=== PATIENT | male | born 1935 | race Caucasian/White ===

== ENCOUNTER → 2020-05-02 08:39 | Outpatient (REF) | payer MEDICARE, SELFPAY ==
--- NOTE | 2020-05-02 08:51 | XR_ITS ---
EXAMINATION: XR CHEST CLINICAL INFORMATION: Heart failure COMPARISON: Previous chest x-rays most recent April 2019 TECHNIQUE: 2 views of the chest were obtained. FINDINGS: The cardiac silhouette is upper normal in size but stable. The thoracic aorta is tortuous. Hilar and mediastinal contours are otherwise unremarkable. No evidence of pulmonary edema is seen. There is a 1 x 1.2 cm nodule at the left lung base adjacent to the left heart border and overlying the left anterior seventh and posterior ninth ribs. The right lung is clear. There is no pleural effusion. There are surgical clips under the left hemidiaphragm. There are degenerative changes of the spine. XR/XR chest 2V IMPRESSION: Upper normal-size cardiac silhouette. No evidence of pulmonary edema. 1 x 1.2 cm nodule at the left lung base. Follow-up chest x-ray with nipple markers or chest CT scan should be considered.
--- NOTE | 2020-05-02 09:30 | CA_ITS ---
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 The visually estimated ejection fraction is between 65-70%. - There is mild aortic valve regurgitation. - There is mild mitral valve regurgitation. - There is mild tricuspid valve regurgitation. - There is mild dilatation of the ascending aorta measuring 4.10 cm. Findings Left Ventricle Normal left ventricular cavity size. There is mildly increased left ventricular wall thickness. The left ventricular systolic function is normal. The visually estimated ejection fraction is between 65-70%. There is no evidence of regional wall motion abnormalities. Diastolic function is normal for age. Right Ventricle Normal right ventricular cavity size and systolic function. Atria The left atrium is mildly dilated. The right atrium is normal in size. Aortic Valve There is a normal trileaflet aortic valve. There is no aortic valve stenosis. There is mild aortic valve regurgitation. Mitral Valve The mitral valve appears normal. There is mild mitral valve regurgitation. There is no mitral valve stenosis. Pulmonic Valve The pulmonic valve was not well visualized. There is trace pulmonic valve regurgitation. Tricuspid Valve Normal tricuspid valve structure. There is mild tricuspid valve regurgitation. The pulmonary artery systolic pressure is normal. Great Vessels There is mild dilatation of the ascending aorta measuring 4.10 cm. Venous The inferior vena cava is normal in size and collapses greater than 50% with inspiration. Pericardium/Pleural There is no evidence of pericardial effusion. Prior Study Comparison Changes noted compared to prior study dated: 05/13/2019. Slight increase in ascending aortic size. Measurements 2D Linear Measurements IVSd: 1.21 0.6-0.9/0.6-1.0 cm LVIDd: 4.85 3.9-5.3/4.2-5.9 cm LVIDd Index: 2.66 2.4-3.2/2.2-3.1 cm/m2 LVIDs: 3.04 2.0-3.6 cm LVPWd: 1.21 0.7-1.1 cm Ao Root: 3.70 2.1-3.5 cm LA Diam: 4.50 2.7-3.8/3.0-4.0 cm LAIDs Index: 2.47 1.5-2.3 cm/m2 LV Mass: 280.96 67-162/88-224 g LV Mass Index: 154.38 43-95/49-115 g/m2 LVOT Diam: 2.30 3.0+(-)1.3 cm Mitral Valve MV Pk E: 0.54 MV PK A: 0.39 MV Decel Time: 338.00 E/A: 1.40 E'Lateral: 9.09 E'Medial: 5.90 E/E' Med: 9.20 E/E' Lat: 6.00 PHT: 99.00 MVA PHT: 2.22 Decel Jasper: 1.61 Aortic Valve AoV Pk Murray: 1.68 AoV Mn Murray: 1.03 AoV VTI: 0.33 AoV Pk Grad: 11.00 Aov Mn Grad: 6.00 RHONDA Cont.VTI: 3.08 LVOT LVOT Pk Murray: 1.04 LVOT Mn Murray: 0.72 LVOT VTI: 0.25 LVOT Pk Grad: 4.00 LVOT Mn Grad: 2.00 LVOT Diam: 2.30 LVOT Area: 4.15 Diastolic Function MV Pk E: 0.54 MV Pk A: 0.39 E/A: 1.40 E'Medial: 5.90 E/E' Med: 9.20 E' Laterial: 9.09 E/E' Lat: 6.00 Tricuspid Valve TR Pk Murray: 2.12 TR Pk Grad: 18.00 RA Press: 3.00 RVSP: 21.00 Great Vessels Aorta Ao Root-2D: 3.70 2.0-3.7 cm Ao Asc: 4.10 2.1-3.4 cm Pulmonary Valve PV Pk Murray: 1.05 Peak PV Grad: 4.00 Updated in Other Vendor System with Status of Final Kenan Zelaya MD electronically signed on 05/02/2020 4:48:57 PM with status of Final
== END ==
LOC: HO.CARD 08:39
PROVIDERS: PCP Internal Medicine; Visit Provider Internal Medicine Cardiovascular Disease
DX: I48.0 Paroxysmal atrial fibrillation (principal); I49.3 Ventricular premature depolarization; I71.2 Thoracic aortic aneurysm, without rupture; Z86.79 Personal history of other diseases of the circulatory system
CPT/HCPCS: 71046; 93306

== ENCOUNTER 2020-06-01 11:49 | Outpatient (REF) | payer MEDICARE, SELFPAY ==
--- NOTE | 2020-06-01 12:17 | XR_ITS ---
EXAMINATION: XR CHEST CLINICAL INFORMATION: Question nodule on recent chest x-ray 05/02/2020 COMPARISON: Chest 05/02/2020 and 05/13/2019 TECHNIQUE: 2 views of the chest were obtained. FINDINGS: Nipple markers were placed and repeat chest PA and lateral was obtained. There is a soft tissue density seen inferior to the nipple marker. This could be a nodule or an correctly placed nipple marker. The rest of lungs are clear. Heart size and vascularity is normal. There is mild spondylosis dorsal spine. XR/XR chest 2V IMPRESSION: Postoperative the markers there is persistent nodule seen in the left lung base. Nodule could be degenerative in correctly placed nipple marker or underlying primary nodule. Recommend CT chest exam. Results were discussed with Dr. Ricky Goodman by phone at 1:40 PM.
== END 2020-06-01 11:50 | disposition home or self-care (01) ==
LOC: HO.XRAY 11:49
PROVIDERS: Absent Provider Internal Medicine; PCP Internal Medicine; Visit Provider Internal Medicine Cardiovascular Disease
DX: Z79.899 Other long term (current) drug therapy (principal)
CPT/HCPCS: 71046

== ENCOUNTER 2020-06-06 07:11 | Outpatient (REF) | payer MEDICARE, SELFPAY ==
--- NOTE | 2020-06-06 07:13 | CT_ITS ---
EXAMINATION: CT CHEST WITHOUT CONTRAST CLINICAL INFORMATION: Long-term current drug therapy. Evaluate for interstitial lung disease. COMPARISON: Previous chest x-rays most recent 06/01/2020 TECHNIQUE: Multidetector volumetric CT imaging of the chest was done. Axial MIP volume rendering provided. Sagittal and coronal reformatted images were obtained. This CT examination was performed using dose optimization techniques as appropriate, variously including the following: *Automated exposure control *Adjustment of mA and/or kV according to patient size (this includes techniques or standardized protocols for targeted exams where dose is matched to indication/reason for exam; i.e. extremities or head) *Use of iterative reconstruction technique DLP: 170 mGy-cm FINDINGS: LUNGS: There is mild biapical pleural and parenchymal scarring. There is a 3 mm calcified right upper lobe nodule axial image 192 series 5. There is a 3 mm calcified right lower lobe nodule axial image 296 series 5. There is a 3 mm noncalcified peripheral or subpleural left lower lobe nodule adjacent to the fissure axial image 309 series 5. There is a 2 mm noncalcified right lower lobe central nodule axial image 328 series 5. There is a 3 mm calcified peripheral or subpleural right lower lobe nodule axial image 375 series 5. There is a 2 mm calcified right lower lobe nodules axial image 460 series 5. There is scarring or subsegmental atelectasis seen in both lower lobes adjacent to the posterior mediastinum, right greater than left. No evidence of interstitial lung disease is seen. No evidence of emphysema or bronchiectasis or endobronchial or endotracheal lesion is seen. The questioned pulmonary nodule on chest x-ray 05/02/2020 is not identified and likely represented a nipple shadow. MEDIASTINUM: The visualized thyroid gland is unremarkable. There are no enlarged hilar or mediastinal lymph nodes. Heart is upper normal in size. There is coronary artery calcification. Thoracic aorta is slightly dilated. The ascending thoracic aorta measures 4.4 cm in AP and transverse dimension. The aortic arch is upper normal in size measuring 3 cm. The descending thoracic aorta is slightly dilated measuring 3.2 cm in diameter. There is a small esophageal hernia. There is no pericardial effusion. The pulmonary arteries are slightly prominent, main pulmonary artery measuring 3.4 cm. PLEURA: There is no pleural effusion. No pleural mass or thickening. AXILLA: No chest wall mass or enlarged axillary lymph nodes are seen. UPPER ABDOMEN: There is diverticulosis of the colon. There is stable linear right adrenal calcification. There are surgical clips inferior to the spleen. OSSEOUS STRUCTURES: There are degenerative changes of the spine and shoulder joints. CT/CT chest wo con IMPRESSION: No evidence of interstitial lung disease. Small calcified and noncalcified pulmonary nodules, largest measuring 3 mm. According to the UPDATED 2017 Fleischner Society recommendations, the advised follow-up imaging for less than 6 mm pulmonary nodule, low risk, no chest CT follow-up needed and high risk, optional follow-up in one year. Upper normal-size heart. Slightly dilated ascending thoracic aorta and pulmonary arteries. Small esophageal hernia.
== END 2020-06-06 07:12 | disposition home or self-care (01) ==
LOC: HO.CT 07:11
PROVIDERS: Visit Provider Internal Medicine Cardiovascular Disease
DX: Z79.899 Other long term (current) drug therapy (principal)
CPT/HCPCS: 71250

== ENCOUNTER → 2020-06-12 08:27 | Outpatient (BNVA) | payer MEDICARE, SELFPAY | PROVIDERS: PCP Internal Medicine; Visit Provider Internal Medicine Cardiovascular Disease | DX: R07.9 Chest pain, unspecified (principal); I25.10 Atherosclerotic heart disease of native coronary artery without angina pectoris; I48.0 Paroxysmal atrial fibrillation; I10 Essential (primary) hypertension; I45.10 Unspecified right bundle-branch block; R00.1 Bradycardia, unspecified | CPT/HCPCS: 93005; 99212 ==

== ENCOUNTER → 2020-06-13 08:23 | Outpatient (REF) | payer MEDICARE, SELFPAY ==
--- NOTE | 2020-06-13 08:30 | CA_ITS ---
Acquisition Time: 2020-06-13 09:54:57 Total Exercise Time: 00:08:09 Test Indications: Chest Pain, afib/rbbb Medications: SEE CHART Protocol: WALTER Max HR: 121 BPM 87% of Pred: 138 BPM Max BP: 170/078 mmHG Max Work Load: 9.2 METS Exercise stress test Using Walter protocol total of 8 min 9 sec. METS 9.10, TAPHR up to 88 %. Pt tolerated well, denies any anginal sx. EKG with RBBB at baseline, no ST changes seen during exercise or in recovery, however in peak exercise tracing very messy do to wire interference. Immediataly post exercise in recovery period no change that would suggest ischemia. Nuclear images to follow. Hypertensive response to exercise, Test reviewed with DR. Zelaya. Referred By: Ricky Macias Overread By: David Montes
--- NOTE | 2020-06-13 09:59 | NM_ITS ---
Exercise Myocardial perfusion study Indication: Exertional chest pain to evaluate for myocardial ischemia Technique: The patient was brought in for an exercise perfusion study on 06/13/2020. Patient performed exercise as per Mendez protocol and was injected 25 mCi of sestamibi was given intravenously one target HR was achieved. Images were obtained using the SPECT gamma camera interlaced with the gating device. Images were obtained in supine position. Resting perfusion study was performed on 06/14/2020. Patient was administered 25 mCi of sestamibi intravenously at rest. Images were then obtained in supine position. Images obtained with and without CT attenuation. Total DLP 67 mGy-cm. Images were processed with the software and compared side to side in short axis, horizontal long axis and vertical long axis views. Findings: The stress perfusion study showed non attenuated images show mildly reduced uptake in the inferior wall of the LV myocardium. Attenuation corrected images show normal uptake in the inferior wall with minimally reduced uptake in the apex of the LV myocardium.. The gated study shows normal LV systolic function with visually estimated LVEF of 55%. LV cavity is mildly dilated in size. The gated study shows normal wall thickening and contraction of all segments. There is no transient ischemic dilation. Resting study shows no change in perfusion pattern compared to stress perfusion study. Gating at rest reveals normal systolic wall motion with visually estimated ejection fraction at 55%. The findings are consistent with normal myocardial perfusion. NM/NM cardiolite stress test Impression: 1. Normal myocardial perfusion 2. Gated LVEF is 55% 3. Transient ischemic dilatation not present Stress EKG is negative for ischemia
== END ==
LOC: HO.CARD 08:23
PROVIDERS: PCP Internal Medicine; Visit Provider Internal Medicine Cardiovascular Disease
DX: R07.9 Chest pain, unspecified (principal)
CPT/HCPCS: 78452; 93017; A9500

== ENCOUNTER 2020-07-31 09:25 | Outpatient (REF) | payer MEDICARE, SELFPAY ==
[2020-07-31 10:03] LABS: MANUAL DIFF FLAG NO
[2020-07-31 10:09] LABS: Basophils Percent Auto 0.3 % (0-2); Eosinophils Absolute Auto 0.1 X10*3/uL (0.0-0.4); Eosinophils Percent Auto 1.6 % (0-4); Hematocrit 44.9 % (42-52); Hemoglobin 14.4 g/dl (14.0-18.0); Imm Gran Abs Auto 0.02 X10*3/uL (0.00-0.03); Imm Gran Pct Auto 0.3 % (0.0-0.4); Lymphocytes Absolute Auto 1.6 X10*3/uL (1.2-4.9); Lymphocytes Percent Auto 25.8 % (20-40); Mean Corpuscular HGB Conc 32.1 g/dl (31.0-36.0); Mean Corpuscular Volume 96.6 fL (80-98); Mean Platelet Volume 10.9 fL (9.4-12.4); Monocytes Absolute Auto 0.5 X10*3/uL (0.1-1.2); Platelet Count 231 X10*3/uL (160-400); Red Blood Count 4.65 X10*6/uL (4.60-5.80); Red Cell Distribution Width 15.2 % (11.0-16.0); White Blood Count 6.2 X10*3/uL (4.8-10.8)
[2020-07-31 10:37] LABS: Glucose Urine UA NEG (NEG); Leukocyte Esterase Urine NEG (NEG); Nitrite Urine NEG (NEG); PH 6.5 (5.0-8.0); Urine Blood NEG (NEG); Urine Ketones NEG (NEG); Urine Protein NEG (NEG-TRACE)
[2020-07-31 10:40] LABS: Alanine Aminotransferase 23 U/L (0-40); Albumin Level 4.3 g/dL (3.5-5.0); Alkaline Phosphatase 60 U/L (39-117); Anion Gap 12 (12-20); Aspartate Amino Transferase 25 U/L (5-37); Bilirubin Total 0.7 mg/dL (0.0-1.0); Blood Urea Nitrogen 21 mg/dL (9-16); Calcium 9.3 mg/dL (8.4-10.2); Carbon Dioxide 29 mmol/L (22-29); Chloride 105 mmol/L (96-108); Cholesterol 169 mg/dL; Estimated Glomerular Filt Rate 56; Glucose Fasting 92 mg/dL (60-99); HDL Cholesterol 78 mg/dL; LDL Cholesterol Calculated 77 mg/dl; Potassium 5.4 mmol/L (3.3-5.1); Sodium 141 mmol/L (135-145); Total Protein 6.9 g/dL (6.5-8.0); Triglycerides 70 mg/dL
[2020-07-31 10:41] LABS: Appearance Urine CLEAR; Color Urine YELLOW
[2020-07-31 11:01] LABS: TSH reflex Free T4 2.67 uIU/mL (0.32-4.0); Vitamin D 25-OH Total 26.3 ng/mL (>30)
[2020-07-31 11:07] LABS: RBC Urine 0 /HPF (0); Renal Epithelial Cells Urine TRACE /LPF; Squamous Epithelial Cell Urine TRACE /LPF; WBC Urine 0 /HPF (0-4)
[2020-07-31 11:12] LABS: Folate 9.8 ng/mL (> or = 4.0); Vitamin B12 350 pg/mL (200-900)
== END 2020-07-31 09:26 | disposition home or self-care (01) ==
LOC: HO.LAB 09:25
PROVIDERS: PCP Internal Medicine; Visit Provider Internal Medicine
DX: I12.9 Hypertensive chronic kidney disease with stage 1 through stage 4 chronic kidney disease, or unspecified chronic kidney disease (principal); N18.2 Chronic kidney disease, stage 2 (mild); E78.2 Mixed hyperlipidemia; E53.8 Deficiency of other specified B group vitamins; I48.0 Paroxysmal atrial fibrillation; K29.50 Unspecified chronic gastritis without bleeding; E55.9 Vitamin D deficiency, unspecified; E66.3 Overweight
CPT/HCPCS: 36415; 80053; 80061; 81001; 82306; 82607; 82746; 84443; 85025

== ENCOUNTER 2020-09-26 08:47 | Outpatient (REF) | payer MEDICARE, SELFPAY ==
--- NOTE | ~2020-09-26 | XR_ITS ---
EXAMINATION: LEFT KNEE. AP BILATERAL KNEE STANDING CLINICAL INFORMATION: Pain left knee COMPARISON: Bilateral knee 12/16/2018 TECHNIQUE: AP bilateral knee standing and left knee 1 view FINDINGS: AP BILATERAL KNEE: There is a total bilateral knee prosthesis with prosthetic components in satisfactory alignment. No loosening seen. There is no bony erosive changes or soft tissue swelling. LEFT KNEE: A single lateral view left knee reveals mild to moderate suprapatellar joint effusion. The patellar bony component is intact. No loosening visualized. There are no loose body seen. XR/XR knee standing BI IMPRESSION: Moderate suprapatellar joint effusion left knee. Total left knee prosthesis with the prosthetic components in satisfactory alignment. The right knee prosthetic components on AP view are intact without any prosthetic loosening seen.
--- NOTE | ~2020-09-26 | XR_ITS ---
EXAMINATION: LEFT KNEE. AP BILATERAL KNEE STANDING CLINICAL INFORMATION: Pain left knee COMPARISON: Bilateral knee 12/16/2018 TECHNIQUE: AP bilateral knee standing and left knee 1 view FINDINGS: AP BILATERAL KNEE: There is a total bilateral knee prosthesis with prosthetic components in satisfactory alignment. No loosening seen. There is no bony erosive changes or soft tissue swelling. LEFT KNEE: A single lateral view left knee reveals mild to moderate suprapatellar joint effusion. The patellar bony component is intact. No loosening visualized. There are no loose body seen. XR/XR knee LT 2V IMPRESSION: Moderate suprapatellar joint effusion left knee. Total left knee prosthesis with the prosthetic components in satisfactory alignment. The right knee prosthetic components on AP view are intact without any prosthetic loosening seen.
--- NOTE | ~2020-09-26 | XR_ITS ---
EXAMINATION: XR LEFT HIP INCLUDING PELVIS CLINICAL INFORMATION: Left hip pain. COMPARISON: Right hip 07/31/2017. TECHNIQUE: Pelvis one view. 2 views of the left hip. FINDINGS: LEFT HIP: Moderate left hip arthritis. Greater trochanteric spurring. Chronic-appearing ossification superior to the greater trochanter. PELVIS: Moderate right hip arthritis. SI joints, symphysis pubis are intact. No acute pelvic fracture seen. There are radiopaque coils projected over the pelvis. XR/XR hip LT w PEL1V IMPRESSION: Moderate bilateral hip joint arthritis.
== END 2020-09-26 08:48 | disposition home or self-care (01) ==
LOC: HO.HOSX 08:47
PROVIDERS: Visit Provider Orthopaedic Surgery
DX: M79.605 Pain in left leg (principal); M25.562 Pain in left knee; M25.552 Pain in left hip; M25.561 Pain in right knee
CPT/HCPCS: 73502; 73560; 73565; 99212

== ENCOUNTER 2020-11-26 20:50 | Inpatient (IN) | payer OTHER, SELFPAY ==
--- NOTE | ~2020-11-26 | XR_ITS ---
EXAMINATION: XR CHEST CLINICAL INFORMATION: Chest radiographs dated 06/01/[address] dated 06/06/2020 COMPARISON: None TECHNIQUE: 2 views of the chest were obtained. Bilateral digital markers are seen in place. FINDINGS: No significant abnormality is noted involving the heart, lungs, mediastinum, bony thorax or soft tissues. XR/XR chest 2V IMPRESSION: No acute cardiopulmonary process.
[2020-11-26 20:54] VITALS: BP 164/70; PULSE 75; RESP 18; TEMP 39.3; O2SAT 98; BMI 26.6
[2020-11-26 21:15] LABS: MANUAL DIFF FLAG NO
--- NOTE | 2020-11-26 21:16 | ECG_ITS ---
Test Reason : FEVER Blood Pressure : / mmHG Vent. Rate : 068 BPM Atrial Rate : 068 BPM P-R Int : 194 ms QRS Dur : 164 ms QT Int : 430 ms P-R-T Axes : 091 262 036 degrees QTc Int : 457 ms Normal sinus rhythm Right bundle branch block Left anterior fascicular block Abnormal ECG When compared with ECG of 17-APR-2016 08:41, No significant changes seen Referred By: Sonny Ricketts Electronically Signed By:OZZY PINA
--- NOTE | 2020-11-26 21:16 | ED_ITS ---
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 Patient denies any hematuria urinating frequently. No nausea no vomiting no flank pain Related Data Home Medications Medication Instructions Recorded Confirmed apixaban 5 mg tablet 5 mg PO BID 06/12/20 08/20/20 atorvastatin 20 mg tablet 20 mg PO BEDTIME 06/12/20 08/20/20 omeprazole 20 mg capsule,delayed 20 mg PO DAILY 06/12/20 08/20/20 release lisinopril 20 mg tablet 20 mg PO .COMPLEX cap 08/20/20 Previous Rx's Medication Instructions Recorded amlodipine 5 mg tablet 5 mg PO DAILY #90 tab 06/12/20 amiodarone 200 mg tablet 200 mg PO DAILY #90 tab 08/24/20 Allergies Allergy/AdvReac Type Severity Reaction Status Date / Time amoxicillin [Augmentin] Allergy Unknown Unknown Verified 11/26/20 21:02 clavulanic acid [Augmentin] Allergy Unknown unknown Verified 11/26/20 21:02 raw cherries Allergy Severe anaphylaxis Uncoded 11/26/20 21:02 flores Allergy Unknown anaphalyxis Uncoded 11/26/20 21:02 Review of Systems Review of Systems: Constitutional : No Weight loss,++ Fever, ++ Chills ENT/Mouth : No sore throat, No Rhinorrhea Eyes: No Eye Pain, No Swelling Cardiovascular : No Chest Pain, no palpitations Respiratory : No Cough, No Sputum, no shortness of breath Gastrointestinal : no Nausea, No Vomiting, No Diarrhea, No abdominal Pain, no black stools Genitourinary : No Dysuria, No Urinary Frequency Musculoskeletal : No joint pain, No Myalgias, No Joint Swelling Skin : No Skin Lesions, No rash Neuro : ++ Weakness, No Numbness, No Dizziness, No Headache Psych : No Anxiety/Panic, No Depression Heme/Lymph: No Bruising, No Lymphadenopathy Endocrine : No Polyuria, No Polydipsia All other systems reviewed and are negative [facility] Past Medical History Medical History Atrial fibrillation CAD (coronary artery disease) Chronic gastritis without bleeding Chronic kidney disease, stage II (mild) Hearing aid worn History of cardiomyopathy History of congestive heart failure HTN (hypertension) Hyperkalemia Hyperlipidemia On amiodarone therapy Overweight (BMI 25.0-29.9) Paroxysmal atrial fibrillation Prostatitis Pulmonary nodules Right bundle branch block (RBBB) determined by electrocardiography Sinus bradycardia Vitamin B12 deficiency Vitamin D deficiency Surgical History History of cardioversion History of colon resection History of prostate surgery History of radiofrequency ablation procedure for cardiac arrhythmia Hx of colonoscopy Hx of colostomy Hx of endoscopy Hx of hand surgery Hx of knee surgery Hx of ventral hernia repair Family History Family History Father No problems noted. Mother CVD (cardiovascular disease) CHF (congestive heart failure) Social History Social History Alcohol intake: current Alcohol intake frequency: a few times a month Advance Directives: No Advance Directives Information Provided: Yes Physical Exam Vital Signs: Vital Signs: Last Vital Signs Temp 98.9 F 11/27/20 00:27 Pulse 56 11/27/20 00:27 Resp 16 11/27/20 00:27 BP 133/53 L 11/27/20 00:27 Pulse Ox 98 11/27/20 00:27 Body Mass Index 26.6 Appearance: Alert. Oriented X3. No acute distress. Eyes: PERRLA, No Nystagmus ENT: Pharynx normal. Oral Mucosa moist Neck: Normal inspection. Neck supple. CVS: Normal heart rate and rhythm. Pulses normal. Respiratory: No respiratory distress. Equal air entry bilateral, no wheezing/rales/rhonchi Abdomen: Soft and nontender. Bowel sounds are present, no mass palpable, no CVA tenderness rectal: enlarged prostate nontender normal external genitalia ,hypospadia+ Skin: Skin warm and dry. Normal skin color. Normal skin turgor. Extremities: No lower extremity edema. No calf tenderness Neuro: Oriented X 3. No motor deficit. No sensory deficit.No cerebellar signs , cranial nerves II-XII intact Procedures Catheter Insertion (Urinary) Date of insertion: 11/27/20 Time of insertion: 00:23 Reason for placing indwelling catheter: Acute urinary retention Bladder scan/ultrasound used before catheterization: Yes Topical anesthesia used: Yes Catheter type/location: Urethral Size (Cambodian): 12 Catheter balloon amount: 5 Results: successfully catheterized-immediate flow Procedure performed: without complications MDM - Fever MDM Narrative Medical decision making narrative: fear with high-grade fever weakness with history of severe prostatitis feel weak. Will admit patient for IV antibiotics. bladder scan showed 470 cc urine postvoid, Patient has hypospadias with meatal stricture which was dilated using dilator Mcdonnell catheter 12 Cambodian was placed. Case discussed with Dr. Hdz urologist Lab Data Attestation: I reviewed the patient's lab results. Result diagrams: 11/26/20 21:08 11/26/20 21:08 Labs: Lab Results 11/26/20 11/26/20 11/26/20 Range/Units 21:08 21:08 21:08 WBC 8.7 (4.8-10.8) X10*3/uL RBC 4.11 L (4.60-5.80) X10*6/uL Hgb 13.1 L (14.0-18.0) g/dl Hct 39.2 L (42-52) % MCV 95.4 (80-98) fL MCH 31.9 (27.0-33.0) pg MCHC 33.4 (31.0-36.0) g/dl RDW 15.3 (11.0-16.0) % Plt Count 191 (160-400) X10*3/uL MPV 11.2 (9.4-12.4) fL Immature Gran % (Auto) 0.2 (0.0-0.4) % Neut % (Auto) 84.4 H (45-73) % Lymph % (Auto) 6.6 L (20-40) % [place] % (Auto) 8.3 (2-11) % Eos % (Auto) 0.3 (0-4) % Baso % (Auto) 0.2 (0-2) % Lymph # (Auto) 0.6 L (1.2-4.9) X10*3/uL [place] # (Auto) 0.7 (0.1-1.2) X10*3/uL Eos # (Auto) 0.0 (0.0-0.4) X10*3/uL Baso # (Auto) 0.0 (0.0-0.2) X10*3/uL Abs Immat Gran (auto) 0.02 (0.00-0.03) X10*3/uL Absolute Neuts (auto) 7.3 (2.0-8.3) X10*3/uL Absolute Nucleated RBC 0.000 (0.0-0.012) X10*3/uL Nucleated RBC % (auto) 0.0 (0.0-0.2) /100WBC PT (9.9-13.0) SEC INR (0.9-1.1) Sodium 138 (135-145) mmol/L Potassium 4.7 (3.3-5.1) mmol/L Chloride 106 (96-108) mmol/L Carbon Dioxide 18 L (22-29) mmol/L Anion Gap 19 (12-20) BUN 19 H (9-16) mg/dL Creatinine 1.27 (0.5-1.4) mg/dL Estim Creat Clear Calc 40.4 Estimated GFR 54 Random Glucose 112 (60-115) mg/dL Lactic Acid 1.5 (0.5-2.0) mmol/L Calcium 8.7 D (8.4-10.2) mg/dL Total Bilirubin 0.6 (0.0-1.0) mg/dL AST 27 (5-37) U/L ALT 24 (0-40) U/L Alkaline Phosphatase 63 (39-117) U/L Total Protein 6.5 (6.5-8.0) g/dL Albumin 3.8 (3.5-5.0) g/dL Urine Color Urine Appearance Urine pH (5.0-8.0) Ur Specific [place] (1.005-1.025) Urine Protein (NEG-TRACE) MG/DL Urine Glucose (UA) (NEG) MG/DL Urine Ketones (NEG) MG/DL Urine Blood (NEG) Urine Nitrite (NEG) Ur Leukocyte Esterase (NEG) Urine RBC (0) /HPF Urine WBC (0-4) /HPF Ur Squamous Epith Cells /LPF Urine Bacteria /LPF COVID-19 (ROSA) (Negative) COVID-19 Clin Com 11/26/20 11/26/20 11/26/20 Range/Units 21:08 21:08 21:25 WBC (4.8-10.8) X10*3/uL RBC (4.60-5.80) X10*6/uL Hgb (14.0-18.0) g/dl Hct (42-52) % MCV (80-98) fL MCH (27.0-33.0) pg MCHC (31.0-36.0) g/dl RDW (11.0-16.0) % Plt Count (160-400) X10*3/uL MPV (9.4-12.4) fL Immature Gran % (Auto) (0.0-0.4) % Neut % (Auto) (45-73) % Lymph % (Auto) (20-40) % [place] % (Auto) (2-11) % Eos % (Auto) (0-4) % Baso % (Auto) (0-2) % Lymph # (Auto) (1.2-4.9) X10*3/uL [place] # (Auto) (0.1-1.2) X10*3/uL Eos # (Auto) (0.0-0.4) X10*3/uL Baso # (Auto) (0.0-0.2) X10*3/uL Abs Immat Gran (auto) (0.00-0.03) X10*3/uL Absolute Neuts (auto) (2.0-8.3) X10*3/uL Absolute Nucleated RBC (0.0-0.012) X10*3/uL Nucleated RBC % (auto) (0.0-0.2) /100WBC PT 14.7 H (9.9-13.0) SEC INR 1.3 H (0.9-1.1) Sodium (135-145) mmol/L Potassium (3.3-5.1) mmol/L Chloride (96-108) mmol/L Carbon Dioxide (22-29) mmol/L Anion Gap (12-20) BUN (9-16) mg/dL Creatinine (0.5-1.4) mg/dL Estim Creat Clear Calc Estimated GFR Random Glucose (60-115) mg/dL Lactic Acid (0.5-2.0) mmol/L Calcium (8.4-10.2) mg/dL Total Bilirubin (0.0-1.0) mg/dL AST (5-37) U/L ALT (0-40) U/L Alkaline Phosphatase (39-117) U/L Total Protein (6.5-8.0) g/dL Albumin (3.5-5.0) g/dL Urine Color YELLOW Urine Appearance CLEAR Urine pH 5.5 (5.0-8.0) Ur Specific [place] 1.020 (1.005-1.025) Urine Protein NEG (NEG-TRACE) MG/DL Urine Glucose (UA) NEG (NEG) MG/DL Urine Ketones NEG (NEG) MG/DL Urine Blood TRACE (NEG) Urine Nitrite NEG (NEG) Ur Leukocyte Esterase NEG (NEG) Urine RBC 0-2 (0) /HPF Urine WBC 0 (0-4) /HPF Ur Squamous Epith Cells NONE /LPF Urine Bacteria NONE /LPF COVID-19 (ROSA) Negative (Negative) COVID-19 Clin Com See Note Discharge Plan Discharge Clinical Impression: Acute bacterial prostatitis, Acute urinary retention Patient Disposition: Admitted As Inpatient
[2020-11-26 21:22] LABS: Basophils Percent Auto 0.2 % (0-2); Eosinophils Percent Auto 0.3 % (0-4); Hematocrit 39.2 % (42-52); Hemoglobin 13.1 g/dl (14.0-18.0); Imm Gran Abs Auto 0.02 X10*3/uL (0.00-0.03); Imm Gran Pct Auto 0.2 % (0.0-0.4); Lymphocytes Absolute Auto 0.6 X10*3/uL (1.2-4.9); Lymphocytes Percent Auto 6.6 % (20-40); Mean Corpuscular HGB Conc 33.4 g/dl (31.0-36.0); Mean Corpuscular Hemoglobin 31.9 pg (27.0-33.0); Mean Corpuscular Volume 95.4 fL (80-98); Mean Platelet Volume 11.2 fL (9.4-12.4); Monocytes Absolute Auto 0.7 X10*3/uL (0.1-1.2); Monocytes Percent Auto 8.3 % (2-11); Neutrophils Absolute Auto 7.3 X10*3/uL (2.0-8.3); Neutrophils Percent Auto 84.4 % (45-73); Platelet Count 191 X10*3/uL (160-400); Red Blood Count 4.11 X10*6/uL (4.60-5.80); Red Cell Distribution Width 15.3 % (11.0-16.0); White Blood Count 8.7 X10*3/uL (4.8-10.8)
[2020-11-26 21:29] VITALS: BP 144/68; PULSE 64; RESP 14; O2SAT 94
[2020-11-26] MEDS: cefTRIAXone sodium 1 GM in 0.9 % Sodium Chloride 50 ML IV (21:30)
[2020-11-26] MEDS: Acetaminophen 325 MG TABLET 650 MG PO (21:31)
[2020-11-26] MEDS: 0.9 % Sodium Chloride 1,000 ML 999 ML IVCONT (21:31)
[2020-11-26 21:34] LABS: Glucose Urine UA NEG (NEG); Leukocyte Esterase Urine NEG (NEG); Nitrite Urine NEG (NEG); PH 5.5 (5.0-8.0); Urine Blood TRACE (NEG); Urine Ketones NEG (NEG); Urine Protein NEG (NEG-TRACE)
[2020-11-26 21:38] VITALS: BP 147/57; PULSE 64; RESP 18; O2SAT 94
[2020-11-26 21:40] LABS: Appearance Urine CLEAR; Color Urine YELLOW
[2020-11-26 21:45] LABS: Lactic Acid 1.5 mmol/L (0.5-2.0)
[2020-11-26 21:46] LABS: INTERNATIONAL NORM RATIO 1.3 (0.9-1.1); Prothrombin Time 14.7 SEC (9.9-13.0)
[2020-11-26 21:53] VITALS: BP 144/57; PULSE 61; RESP 14; O2SAT 94
[2020-11-26 22:08] VITALS: BP 143/56; PULSE 59; RESP 14; O2SAT 93
[2020-11-26 22:15] LABS: RBC Urine 0-2 /HPF (0); WBC Urine 0 /HPF (0-4)
[2020-11-26 22:25] LABS: COVID-19 Test Negative (Negative)
[2020-11-26 22:40] LABS: Alanine Aminotransferase 24 U/L (0-40); Albumin Level 3.8 g/dL (3.5-5.0); Alkaline Phosphatase 63 U/L (39-117); Anion Gap 19 (12-20); Aspartate Amino Transferase 27 U/L (5-37); Bilirubin Total 0.6 mg/dL (0.0-1.0); Blood Urea Nitrogen 19 mg/dL (9-16); Calcium 8.7 mg/dL (8.4-10.2); Carbon Dioxide 18 mmol/L (22-29); Chloride 106 mmol/L (96-108); Creatinine Clr Calc Pharmacy 40.4; Estimated Glomerular Filt Rate 54; Glucose Random 112 mg/dL (60-115); Potassium 4.7 mmol/L (3.3-5.1); Sodium 138 mmol/L (135-145); Total Protein 6.5 g/dL (6.5-8.0)
[2020-11-26 22:49] VITALS: PULSE 57; RESP 14; TEMP 37.9
--- NOTE | 2020-11-26 23:15 | PC.NURSE ---
aware of post-void residual bladder scan of 470ml. Patient is alert/oriented, denies urinary/bladder discomfort at this time. States that if he needs to be catheterized, he requests that a urologist perform the procedure with dilator due to prostatitis hx & urinary trauma in the past at [place]. aware & agrees with this. consulted with (urologist) over the phone regarding this patient. Plan to admit for fever, prostatitis, and urinary retention/frequency. Temperature decreased from 102.7F to 100.2F after Tylenol and antibiotics administration. Pt continues to deny any pain. Pt updated his regarding plan to remain in hospital for admission. Other vitals stable. Will continue to monitor.
[2020-11-27] VITALS (9 sets, daily range): BP systolic 111–159; BP diastolic 53–71; PULSE 51–68; RESP 16–18; TEMP 35.9–37.8; O2SAT 90–98
[2020-11-27] MEDS: levoFLOXacin/D5W 500 MG/100 ML PIGGYBACK 100 MG IV (00:16)
--- NOTE | 2020-11-27 06:22 | P.HPHOSP_ITS ---
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 Patient reports that today he started developing chills, and had a fever of 104. generally not feeling well and therefore he he felt that he needs to come to the hospital as his is out of town and he just had a feeling that he most likely has recurrent prostatitis. He reports urinary retention, and overflow, with no dysuria or urgency. And no frequency. denies any abdominal pain nausea or vomiting, no chest pain or palpitations, no lower extremity edema. No numbness tingling or weakness. on arrival to the ED patient hemodynamically stable with no significant abnormal vitals except for a temp of 102.7 all other vitals normal Labs are significant for WBC count of 8.7, hemoglobin of 13.1, PT of 14.7, INR of 1.3, BUN of 19, creatinine of 1.27 which is his baseline, UA negative, urologist was consulted, a Mcdonnell was placed and patient will be started on IV antibiotics Review of Systems Review of Systems: Yes all other systems are reviewed and are negative [facility] Medical History Atrial fibrillation CAD (coronary artery disease) Chronic gastritis without bleeding Chronic kidney disease, stage II (mild) Hearing aid worn History of cardiomyopathy History of congestive heart failure HTN (hypertension) Hyperkalemia Hyperlipidemia On amiodarone therapy Overweight (BMI 25.0-29.9) Paroxysmal atrial fibrillation Prostatitis Pulmonary nodules Right bundle branch block (RBBB) determined by electrocardiography Sinus bradycardia Vitamin B12 deficiency Vitamin D deficiency Family History Father No problems noted. Mother CVD (cardiovascular disease) CHF (congestive heart failure) Surgical History History of cardioversion History of colon resection History of prostate surgery History of radiofrequency ablation procedure for cardiac arrhythmia Hx of colonoscopy Hx of colostomy Hx of endoscopy Hx of hand surgery Hx of knee surgery Hx of ventral hernia repair Social History Household Members: Spouse Housing: House Do you presently have visiting nurse or other home services: Yes Alcohol intake: current Alcohol intake frequency: a few times a month Patient Tobacco Use Status: Never used Tobacco Use of substances other than those prescribed or required for medical reasons: No Have you been hit, kicked, punched, or otherwise hurt by someone within the past year? If so, by whom?: No Do you feel safe in your current relationship?: Yes Is there a partner from a previous relationship who is making you feel unsafe now?: No Are you made to feel afraid or neglected: No Advance Directives: No Advance Directives Information Provided: Yes Do you have thoughts of harming others: None Do you have a plan to hurt others: No Plan Recently lost weight without trying: No Nutrition Risks: No Nutritional Risk Poor oral hygiene: No Meds Allergies Allergy/AdvReac Type Severity Reaction Status Date / Time amoxicillin [Augmentin] Allergy Unknown Unknown Verified 11/26/20 21:02 clavulanic acid [Augmentin] Allergy Unknown unknown Verified 11/26/20 21:02 raw cherries Allergy Severe anaphylaxis Uncoded 11/26/20 21:02 flores Allergy Unknown anaphalyxis Uncoded 11/26/20 21:02 Active Medications: Current Medications Generic Name Dose Route Start Last Admin Trade Name Freq PRN Reason Stop Dose Admin Acetaminophen 650 mg 11/27/20 00:27 Acetaminophen 325 Mg Tablet PO Q6H PRN Pain, Mild (Pain Scale 1-3) Docusate Sodium 100 mg 11/27/20 00:27 Docusate Sodium 100 Mg Capsule PO DAILY PRN Constipation Levofloxacin 750 mg in 150 mls @ 100 mls/hr 11/27/20 22:00 Levaquin IV Q24H WAYLON Ondansetron HCl 4 mg 11/27/20 00:27 Ondansetron Hcl 4 Mg/2 Ml Vial IVPUSH Q8H PRN Nausea and Vomiting Oxycodone HCl 5 mg 11/27/20 00:27 Oxycodone Hcl Immed Release 5 Mg Tablet PO Q6H PRN Pain, Severe (Pain Scale 7-10) Sodium Chloride 3 ml 11/27/20 08:00 0.9 % Sodium Chloride Flush 3 Ml Syringe IVFLUSH QSHIFT [facility] Home Medications Medication Instructions Recorded Confirmed Last Taken Type apixaban 5 mg tablet 5 mg PO BID 06/12/20 11/27/20 11/26/20 History atorvastatin 20 mg tablet 20 mg PO BEDTIME 06/12/20 11/27/20 11/26/20 History omeprazole 20 mg capsule,delayed 20 mg PO DAILY 06/12/20 11/27/20 11/26/20 History release lisinopril 20 mg tablet 20 mg PO BEDTIME cap 08/20/20 11/27/20 11/26/20 History lisinopril 10 mg PO DAILY 11/27/20 11/27/20 11/26/20 History Physical Exam Vital Signs and Narrative: Vital Signs: Last Vital Signs Temp 96.6 F L 11/27/20 02:01 Pulse 61 11/27/20 02:01 Resp 18 11/27/20 02:01 BP 155/70 H 11/27/20 02:01 Pulse Ox 97 11/27/20 02:01 Body Mass Index 26.6 Const: General: cooperative and no acute distress Orientation /consciousness: patient oriented x3 Eyes: General: appearance normal, both eyes and all related structures Pupils: Equal, round and reactive pupils present Resp: Effort & Inspection: normal respiratory effort and able to speak in complete sentences Cardio: Rate: regular rate Rhythm: regular rhythm GI: Palpation (GI): Soft to palpation Auscultation: normal bowel sounds : Other: pain at the insertion of catheter Skin: General skin exam: no rashes or lesions noted Neuro: General: patient oriented x3 Cranial nerves: Yes Equal, round and reactive pupils present Cognition (Neuro): normal cognition Extrem: General: Yes normal to inspection and Yes no pedal edema Results Labs CBC and Chem 7: 11/26/20 21:08 11/26/20 21:08 Labs: Laboratory Results - last 24 hr 11/26/20 11/26/20 11/26/20 21:08 21:08 21:08 MCV 95.4 MCH 31.9 MCHC 33.4 RDW 15.3 Plt Count 191 MPV 11.2 Immature Gran % (Auto) 0.2 Neut % (Auto) 84.4 H Lymph % (Auto) 6.6 L [place] % (Auto) 8.3 Eos % (Auto) 0.3 Baso % (Auto) 0.2 Lymph # (Auto) 0.6 L [place] # (Auto) 0.7 Eos # (Auto) 0.0 Baso # (Auto) 0.0 Abs Immat Gran (auto) 0.02 Absolute Neuts (auto) 7.3 Absolute Nucleated RBC 0.000 Nucleated RBC % (auto) 0.0 PT INR Anion Gap 19 Estim Creat Clear Calc 40.4 Estimated GFR 54 Random Glucose 112 Lactic Acid 1.5 Calcium 8.7 D Total Bilirubin 0.6 AST 27 ALT 24 Alkaline Phosphatase 63 Total Protein 6.5 Albumin 3.8 Urine Color Urine Appearance Urine pH Ur Specific [place] Urine Protein Urine Glucose (UA) Urine Ketones Urine Blood Urine Nitrite Ur Leukocyte Esterase Urine RBC Urine WBC Ur Squamous Epith Cells Urine Bacteria COVID-19 (ROSA) COVID-19 Hara 11/26/20 11/26/20 11/26/20 21:08 21:08 21:25 MCV MCH MCHC RDW Plt Count MPV Immature Gran % (Auto) Neut % (Auto) Lymph % (Auto) [place] % (Auto) Eos % (Auto) Baso % (Auto) Lymph # (Auto) [place] # (Auto) Eos # (Auto) Baso # (Auto) Abs Immat Gran (auto) Absolute Neuts (auto) Absolute Nucleated RBC Nucleated RBC % (auto) PT 14.7 H INR 1.3 H Anion Gap Estim Creat Clear Calc Estimated GFR Random Glucose Lactic Acid Calcium Total Bilirubin AST ALT Alkaline Phosphatase Total Protein Albumin Urine Color YELLOW Urine Appearance CLEAR Urine pH 5.5 Ur Specific [place] 1.020 Urine Protein NEG Urine Glucose (UA) NEG Urine Ketones NEG Urine Blood TRACE Urine Nitrite NEG Ur Leukocyte Esterase NEG Urine RBC 0-2 Urine WBC 0 Ur Squamous Epith Cells NONE Urine Bacteria NONE COVID-19 (ROSA) Negative COVID-19 Clin Com See Note Assessment and Plan (1) Acute bacterial prostatitis: Status: Acute (2) Acute urinary retention: Status: Acute 84-year-old male with history of idiopathic prostatitis presents with an acute episode # acute prostatitis - had fever with no leukocytosis or evidence of sepsis - UA -ve - will start him on levofloxacin IV - follow urine cultures - urology consult # acute urinary retention - Mcdonnell in place - urology following # paroxysmal AFib - patient reports that he currently takes apixaban but usually intentionally stops taking doses when he has increase activity any as 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
[2020-11-27] MEDS: Amiodarone HCL 200 MG TABLET PO (09:04)
[2020-11-27] MEDS: Omeprazole 20 MG CAPSULE.DR PO (09:04)
[2020-11-27] MEDS: lisinopriL 10 MG TABLET PO (09:04)
[2020-11-27] MEDS: amLODIPine Besylate 5 MG TABLET PO (09:04)
[2020-11-27] MEDS: 0.9 % Sodium Chloride Flush 3 ML SYRINGE IVFLUSH ×2 (09:05→15:57)
[2020-11-27] MEDS: Docusate Sodium 100 MG CAPSULE PO (12:01)
[2020-11-27] MEDS: Acetaminophen 325 MG TABLET 650 MG PO ×2 (13:19→23:38)
--- NOTE | 2020-11-27 15:01 | MHC.CM.PN ---
Addendum entered by Polly Funez 11/27/20 15:50: PATIENT HAS BEEN COVID VACCINATED (PFIZER) Original Note: PATIENT LIVES WITH HIS AND IS FULLY INDEPENDENT. HCP ON FILE IS NOT DATED, AND A NEW ONE CAN BE COMPLETED DURING THIS ADMISSION. PATIENT USES NO DME FOR AMBULATION AND NO [facility]NA SERVICES. 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 PCP IS DR HOA DEL REAL. [employer] UPDATE SENT TO CASE MANAGEMENT OFFICE. UROLOGY IN TO SEE PATIENT AND CM TO RETURN FOR COMPLETION OF ASSESSMENT IMM 11/27 IN CHART.
[2020-11-27] MEDS: 0.9 % Sodium Chloride 1,000 ML 100 ML IVCONT (15:43)
[2020-11-27] MEDS: Atorvastatin Calcium 20 MG TABLET PO (20:45)
[2020-11-27] MEDS: lisinopriL 20 MG TABLET PO (20:45)
[2020-11-27] MEDS: levoFLOXacin/D5W 750 MG/150 ML PIGGYBACK 100 MG IV (22:02)
[2020-11-28] MEDS: 0.9 % Sodium Chloride 1,000 ML 100 ML IVCONT (02:22)
[2020-11-28 03:18] VITALS: BP 119/60; PULSE 64; RESP 18; TEMP 36.4; O2SAT 96
[2020-11-28 06:41] LABS: MANUAL DIFF FLAG NO
[2020-11-28 06:47] LABS: Basophils Percent Auto 0.2 % (0-2); Eosinophils Absolute Auto 0.1 X10*3/uL (0.0-0.4); Eosinophils Percent Auto 1.1 % (0-4); Hematocrit 38.9 % (42-52); Hemoglobin 12.9 g/dl (14.0-18.0); Imm Gran Abs Auto 0.04 X10*3/uL (0.00-0.03); Imm Gran Pct Auto 0.4 % (0.0-0.4); Lymphocytes Absolute Auto 0.8 X10*3/uL (1.2-4.9); Mean Corpuscular HGB Conc 33.2 g/dl (31.0-36.0); Mean Corpuscular Hemoglobin 31.9 pg (27.0-33.0); Mean Corpuscular Volume 96.3 fL (80-98); Mean Platelet Volume 11.9 fL (9.4-12.4); Monocytes Percent Auto 10.9 % (2-11); Neutrophils Absolute Auto 7.3 X10*3/uL (2.0-8.3); Neutrophils Percent Auto 78.4 % (45-73); Platelet Count 180 X10*3/uL (160-400); Red Blood Count 4.04 X10*6/uL (4.60-5.80); Red Cell Distribution Width 15.4 % (11.0-16.0); White Blood Count 9.3 X10*3/uL (4.8-10.8)
[2020-11-28 07:07] LABS: Anion Gap 14 (12-20); Blood Urea Nitrogen 14 mg/dL (9-16); Calcium 8.7 mg/dL (8.4-10.2); Carbon Dioxide 23 mmol/L (22-29); Chloride 107 mmol/L (96-108); Creatinine Clr Calc Pharmacy 49.4; Estimated Glomerular Filt Rate > 60; Glucose Random 99 mg/dL (60-115); Potassium 4.9 mmol/L (3.3-5.1); Sodium 139 mmol/L (135-145)
[2020-11-28 07:35] VITALS: BP 158/70; PULSE 59; RESP 18; TEMP 37.4; O2SAT 96
[2020-11-28 07:57] VITALS: BP 158/70; PULSE 59
[2020-11-28] MEDS: Amiodarone HCL 200 MG TABLET PO (07:57)
[2020-11-28] MEDS: amLODIPine Besylate 5 MG TABLET PO (07:57)
[2020-11-28] MEDS: lisinopriL 10 MG TABLET PO (07:57)
--- NOTE | 2020-11-28 08:18 | PM.DS ---
DS: Providers Provider Date of Service: 11/28/20 Date of admission: 11/27/20 00:23 Primary care physician: Unknown Physician Consults: 11/27/20 00:27 Consult to Urology Routine Consulting Provider: Jeff Hdz Reason for consultation: prostatitis Has provider been notified: Yes 11/27/20 11:54 Consult to Urology Routine Consulting Provider: Jeff Hdz Reason for consultation: Recurrent prostatitis Has provider been notified: No DS: Diagnosis Discharge Diagnosis (1) Acute bacterial prostatitis: Status: Acute (2) Acute urinary retention: Status: Resolved DS: Medications Discharge Medications Home Medications: Home Medications Medication Instructions Recorded Confirmed apixaban 5 mg tablet 5 mg PO BID 06/12/20 11/27/20 atorvastatin 20 mg tablet 20 mg PO BEDTIME 06/12/20 11/27/20 omeprazole 20 mg capsule,delayed 20 mg PO DAILY 06/12/20 11/27/20 release lisinopril 20 mg tablet 20 mg PO BEDTIME cap 08/20/20 11/27/20 lisinopril 10 mg PO DAILY 11/27/20 11/27/20 Previous Rx's Medication Instructions Recorded amlodipine 5 mg tablet 5 mg PO DAILY #90 tab 06/12/20 amiodarone 200 mg tablet 200 mg PO DAILY #90 tab 08/24/20 DS: Summary Hospital Course Hospital Course: Chief Complaint: Chills, fever, not feeling well 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 Patient reports that today he started developing chills, and had a fever of 104. generally not feeling well and therefore he he felt that he needs to come to the hospital as his is out of town and he just had a feeling that he most likely has recurrent prostatitis. He reports urinary retention, and overflow, with no dysuria or urgency. And no frequency. denies any abdominal pain nausea or vomiting, no chest pain or palpitations, no lower extremity edema. No numbness tingling or weakness. on arrival to the ED patient hemodynamically stable with no significant abnormal vitals except for a temp of 102.7 all other vitals normal Labs are significant for WBC count of 8.7, hemoglobin of 13.1, PT of 14.7, INR of 1.3, BUN of 19, creatinine of 1.27 which is his baseline, UA negative, urologist was consulted, a Pierce was placed and patient will be started on IV antibiotics Hospital course: Patient was admimtted for prostattis, a pierce catheter was inserted. He was given IV Levaquin and was evaluated by Dr. Hdz from Urology and is recommend treated for 14 days. He is presently afebrile and feels much better, culture so far negative and he would like to complete treatment at home and would return any sing of worsening. Additionally will be given Prescripition with Levaquin to take in the future at first sings of getting similar symptoms this has been suggeted by his urologist in the past Time Spent with Patient Time attestation: Total time spent providing and/or coordinating discharge services: Discharge coordination time: Greater than 30 minutes Quality: Stroke Does the patient have a stroke diagnosis?: No Physical Exam Vital Signs: Vital Signs: Last Vital Signs Temp 99.3 F 11/28/20 07:35 Pulse 59 11/28/20 07:57 Resp 18 11/28/20 07:35 BP 158/70 H 11/28/20 07:57 Pulse Ox 96 11/28/20 07:35 Body Mass Index 26.6 Const: Other: General: AO X 3, no acute distress Resp: CTA bilateral CVS: S1,S2,RRR GI/: +BS, NT, no distention, pierce was still in but was been removed Skin: No rash Neuro: motor grossly intact Psych: appropriate affect DS: Data Data Completed and Pending Labs on day of discharge: Laboratory Results - last 24 hr 11/28/20 11/28/20 05:43 05:43 WBC 9.3 RBC 4.04 L Hgb 12.9 L Hct 38.9 L MCV 96.3 MCH 31.9 MCHC 33.2 RDW 15.4 Plt Count 180 MPV 11.9 Immature Gran % (Auto) 0.4 Neut % (Auto) 78.4 H Lymph % (Auto) 9.0 L [place] % (Auto) 10.9 Eos % (Auto) 1.1 Baso % (Auto) 0.2 Lymph # (Auto) 0.8 L [place] # (Auto) 1.0 Eos # (Auto) 0.1 Baso # (Auto) 0.0 Abs Immat Gran (auto) 0.04 H Absolute Neuts (auto) 7.3 Absolute Nucleated RBC 0.000 Nucleated RBC % (auto) 0.0 Sodium 139 Potassium 4.9 Chloride 107 Carbon Dioxide 23 Anion Gap 14 BUN 14 Creatinine 1.04 Estim Creat Clear Calc 49.4 Estimated GFR > 60 Random Glucose 99 Calcium 8.7 Preliminary micro results at discharge 11/26/20 21:20 Blood Culture - Preliminary Blood - Venous No growth after 24 hours. 11/26/20 21:08 Blood Culture - Preliminary Blood - Venous No growth after 24 hours. Discharge Plan Discharge Anticipated Discharge Date/Time: 11/28/20 08:34 Patient Disposition: Home, Self-Care Discharge Diagnosis: Prostatitis Referrals: Physician,Unknown [Physician] - 1 Week Discharge Medications: Continued amiodarone 200 mg tablet 200 mg PO DAILY Qty: 90 RF: 3 Eliquis 5 mg tablet 5 mg PO BID RF: 0 atorvastatin 20 mg tablet 20 mg PO BEDTIME RF: 0 omeprazole 20 mg capsule,delayed release(DR/EC) 20 mg PO DAILY RF: 0 No Action amlodipine 5 mg tablet 5 mg PO DAILY Qty: 90 RF: 2 prednisone 20 mg tablet 60 mg PO DAILY Qty: 12 RF: 0 sulfamethoxazole-trimethoprim [Bactrim DS] 800-160 mg tablet 1 tab PO BID Qty: 28 RF: 0 epinephrine [EpiPen 2-Jeyson] 0.3 mg/0.3 mL auto-injector 0.3 mg IM Q15M PRN (Reason: anaphylaxis) 30 Days Qty: 2 RF: 3 Discharge Orders: Discharge Order (Routine); Ordered 11/28/20 Ordered By: Prashanth Vázquez Diet: advance to usual diet Activity on Discharge: As tolerated Stand Alone Forms: Patient Portal Discharge page Care Plan Goals: Full recovery from prostatitis Health Concerns: Prostatitis Plan of Treatment: Take Levaquin as recommended and follow up with your Urlogist within 2 weeks, call 911 and come back to ED if you are feeling unwell, fever, difficulty voiding Assessment: As above Discharge Date/Time: 11/28/20 10:34
--- NOTE | 2020-11-28 11:00 | P.CNUR_ITS ---
History of Present Illness Consult details Consult date: 11/27/20 Narrative: patient known to Urology prior history of prostatitis. Attacks occur every 8-9 years. Had prodrome for 3-4 days prior to admission with fever and chills found to have retention on admission. Mcdonnell catheter placed. Discussion regarding self management initiation significant improvement on 3rd generation recommendation for oral Levaquin can remove Mcdonnell catheter tomorrow follow-up in 6 weeks for cystoscopy and evaluation of scarring from prior hypospadias repair Review of Systems Constitutional: Constitutional: Denies chills and Denies fever(s) Cardiovascular: Cardiovascular: Reports no additional cardiovascular complaints and Denies syncope Respiratory: Respiratory: Denies cough Gastrointestinal: Gastrointestinal: Denies abdominal pain and Denies heartburn Genitourinary: Genitourinary: Reports as per HPI and Denies change in libido Neurologic: Denies syncope Psychiatric: Psychiatric: Denies change in libido Endocrine: Endocrine: Denies change in libido PMFSH Past Medical History Medical History Atrial fibrillation CAD (coronary artery disease) Chronic gastritis without bleeding Chronic kidney disease, stage II (mild) Hearing aid worn History of cardiomyopathy History of congestive heart failure HTN (hypertension) Hyperkalemia Hyperlipidemia On amiodarone therapy Overweight (BMI 25.0-29.9) Paroxysmal atrial fibrillation Prostatitis Pulmonary nodules Right bundle branch block (RBBB) determined by electrocardiography Sinus bradycardia Vitamin B12 deficiency Vitamin D deficiency Family History Family History Father No problems noted. Mother CVD (cardiovascular disease) CHF (congestive heart failure) Surgical History Surgical History History of cardioversion History of colon resection History of prostate surgery History of radiofrequency ablation procedure for cardiac arrhythmia Hx of colonoscopy Hx of colostomy Hx of endoscopy Hx of hand surgery Hx of knee surgery Hx of ventral hernia repair Social History Social History Household Members: Spouse Housing: House Do you presently have visiting nurse or other home services: Yes Alcohol intake: current Alcohol intake frequency: a few times a month Patient Tobacco Use Status: Never used Tobacco Use of substances other than those prescribed or required for medical reasons: No Currently Displaying Signs/Symptoms of Drug Intoxication Withdrawal: No Have you been hit, kicked, punched, or otherwise hurt by someone within the past year? If so, by whom?: No Do you feel safe in your current relationship?: Yes Is there a partner from a previous relationship who is making you feel unsafe now?: No Are you made to feel afraid or neglected: No Advance Directives: No Advance Directives Information Provided: Yes Do you have thoughts of harming others: None Do you have a plan to hurt others: No Plan Recently lost weight without trying: No Nutrition Risks: No Nutritional Risk Poor oral hygiene: No service: Yes Current occupational status: retired Meds Allergies Allergy/AdvReac Type Severity Reaction Status Date / Time amoxicillin [Augmentin] Allergy Unknown Unknown Verified 11/26/20 21:02 clavulanic acid [Augmentin] Allergy Unknown unknown Verified 11/26/20 21:02 raw cherries Allergy Severe anaphylaxis Uncoded 11/26/20 21:02 flores Allergy Unknown anaphalyxis Uncoded 11/26/20 21:02 Home Medications Medication Instructions Recorded Confirmed Last Taken Type apixaban 5 mg tablet 5 mg PO BID 06/12/20 11/27/20 11/26/20 History atorvastatin 20 mg tablet 20 mg PO BEDTIME 06/12/20 11/27/20 11/26/20 History omeprazole 20 mg capsule,delayed 20 mg PO DAILY 06/12/20 11/27/20 11/26/20 History release lisinopril 20 mg tablet 20 mg PO BEDTIME cap 08/20/20 11/27/20 11/26/20 History lisinopril 10 mg PO DAILY 11/27/20 11/27/20 11/26/20 History Physical Exam Vital Signs: Vital Signs: Last Vital Signs Temp 99.3 F 11/28/20 07:35 Pulse 59 11/28/20 07:57 Resp 18 11/28/20 07:35 BP 158/70 H 11/28/20 07:57 Pulse Ox 96 11/28/20 07:35 Body Mass Index 26.6 Const: General: cooperative, healthy appearing, comfortable and no acute distress Orientation/consciousness: patient oriented x3 HENMT: Face and sinus: Yes normal facial exam Mouth: moist mucous membranes Neck: Neck: Yes normal visual inspection, Yes full ROM and Yes trachea midline Chest: Chest palpation & inspection: normal inspection of the chest Resp: Effort & Inspection: normal respiratory effort, able to speak in com plete sentences and no respiratory distress GI: Inspection: Yes normal to inspection Back/Spine/Pelvis: Cervical Spine: normal cervical lordosis Thoracic/Lumbar Spine: thoracic and lumbar spine normal to inspection Skin: General skin exam: no rashes or lesions noted Neuro: General: patient oriented x3, gait normal, tone normal and moves all extremities Extrem: General: Yes normal to inspection and Yes capillary refill normal Results Labs Result diagrams: 11/28/20 05:43 11/28/20 05:43 Labs: Abnormal lab results 11/28/20 Range/Units 05:43 RBC 4.04 L (4.60-5.80) X10*6/uL Hgb 12.9 L (14.0-18.0) g/dl Hct 38.9 L (42-52) % Neut % (Auto) 78.4 H (45-73) % Lymph % (Auto) 9.0 L (20-40) % Lymph # (Auto) 0.8 L (1.2-4.9) X10*3/uL Abs Immat Gran (auto) 0.04 H (0.00-0.03) X10*3/uL Short CBC 11/28/20 Range/Units 05:43 WBC 9.3 (4.8-10.8) X10*3/uL Hgb 12.9 L (14.0-18.0) g/dl Hct 38.9 L (42-52) % Plt Count 180 (160-400) X10*3/uL BMP 11/28/20 05:43 Sodium 139 Potassium 4.9 Chloride 107 Carbon Dioxide 23 BUN 14 Creatinine 1.04 Calcium 8.7 Urine 11/26/20 Range/Units 21:25 Urine Color YELLOW Urine Appearance CLEAR Urine pH 5.5 (5.0-8.0) Ur Specific [place] 1.020 (1.005-1.025) Urine Protein NEG (NEG-TRACE) MG/DL Urine Glucose (UA) NEG (NEG) MG/DL All other labs normal. Assessment and Plan (1) Acute bacterial prostatitis: Status: Acute (2) Hypospadias: Status: Acute 14 days Levaquin Procedures Date of Service Date of Service: 11/27/20
== END 2020-11-28 10:34 | disposition home or self-care (01) | DRG 728 ==
LOC: HO.ED 11-27 00:47 → HO.EDOVER 11-27 00:47 → HO.S3 11-27 00:52
PROVIDERS: Admitting Provider Internal Medicine; Emergency Provider Internal Medicine; PCP Internal Medicine; Visit Provider Internal Medicine
DX: N41.0 Acute prostatitis (principal); I25.10 Atherosclerotic heart disease of native coronary artery without angina pectoris; I48.0 Paroxysmal atrial fibrillation; R33.9 Retention of urine, unspecified; L90.5 Scar conditions and fibrosis of skin; I12.9 Hypertensive chronic kidney disease with stage 1 through stage 4 chronic kidney disease, or unspecified chronic kidney disease; N18.9 Chronic kidney disease, unspecified; E78.5 Hyperlipidemia, unspecified; Z20.822 Contact with and (suspected) exposure to COVID-19; Z79.01 Long term (current) use of anticoagulants; Z79.899 Other long term (current) drug therapy
CPT/HCPCS: 36415; 71046; 80048; 80053; 81001; 83605; 85025; 85610; 87040; 87086; 87635; 93005; 99285; J0696; J1956

== ENCOUNTER 2020-11-29 09:17 | Emergency (ER) | payer OTHER, MEDICARE, SELFPAY ==
[2020-11-29 09:19] VITALS: BP 142/69; PULSE 56; RESP 17; TEMP 36.1; O2SAT 96; BMI 25.8
--- NOTE | 2020-11-29 09:30 | PC.NURSE ---
Pt recently d/c'd for urinary retention and prostatitis. Reports at 0200 tongue swelling on one side with diff breathing. Pt relates sx to Levaquin but however does take Lisinopril. Pt does reports sx appear to be resolving for last hr or so. On exam entire tongue appears thick but airway patent and no swelling to uvula. Speaking full sentences. Breathing non labored. Skin PWD.
--- NOTE | 2020-11-29 09:31 | ED.ALLEREA ---
HPI - Allergic Reaction General Chief complaint: Allergic Reaction Stated complaint: allergic reaction Time Seen by Provider: 11/29/20 09:29 Source: patient Mode of arrival: ambulatory Limitations: no limitations History of Present Illness HPI narrative: patient with tongue swelling at 2-3am. Patient felt short of breath. Tongue is swollen on one side. Recently admitted for prostatitis MD complaint: other (tongue swelling) Onset (ago): hour(s) Known history of allergy to: patient on both levaquin and lisinopril Symptoms: difficulty breathing Severity: moderate Treatment prior to arrival: none Previous Allergic Reaction History: none Related Data Home Medications Medication Instructions Recorded Confirmed apixaban 5 mg tablet 5 mg PO BID 06/12/20 11/27/20 atorvastatin 20 mg tablet 20 mg PO BEDTIME 06/12/20 11/27/20 omeprazole 20 mg capsule,delayed 20 mg PO DAILY 06/12/20 11/27/20 release lisinopril 20 mg tablet 20 mg PO BEDTIME cap 08/20/20 11/27/20 lisinopril 10 mg PO DAILY 11/27/20 11/27/20 Previous Rx's Medication Instructions Recorded amlodipine 5 mg tablet 5 mg PO DAILY #90 tab 06/12/20 amiodarone 200 mg tablet 200 mg PO DAILY #90 tab 08/24/20 levofloxacin 500 mg PO Q24H 12 Days #12 tab 11/28/20 prednisone 60 mg PO DAILY #12 tab 11/29/20 sulfamethoxazole-trimethoprim 1 tab PO BID #28 tab 11/29/20 [Bactrim DS] Allergies Allergy/AdvReac Type Severity Reaction Status Date / Time amoxicillin [Augmentin] Allergy Unknown Unknown Verified 11/26/20 21:02 clavulanic acid [Augmentin] Allergy Unknown unknown Verified 11/26/20 21:02 raw cherries Allergy Severe anaphylaxis Uncoded 11/26/20 21:02 flores Allergy Unknown anaphalyxis Uncoded 11/26/20 21:02 Review of Systems Constitutional: Constitutional: Reports no additional constitutional complaints Eyes: Eyes: Reports no additional eye complaints ENT: Denies dizziness Cardiovascular: Cardiovascular: Reports no additional cardiovascular complaints Respiratory: Respiratory: Reports as per HPI Gastrointestinal: Gastrointestinal: Reports no additional gastrointestinal complaints Musculoskeletal: Musculoskeletal: Reports no additional musculoskeletal complaints Integumentary/Breasts: Skin/Breast: Denies rash Neurologic: Reports system reviewed and no additional complaints, except as documented, Denies dizziness and Denies Sensory deficit (Neuro) Psychiatric: Psychiatric: Denies anxiety PMFSH Past Medical History Medical History Atrial fibrillation CAD (coronary artery disease) Chronic gastritis without bleeding Chronic kidney disease, stage II (mild) Hearing aid worn History of cardiomyopathy History of congestive heart failure HTN (hypertension) Hyperkalemia Hyperlipidemia On amiodarone therapy Overweight (BMI 25.0-29.9) Paroxysmal atrial fibrillation Prostatitis Pulmonary nodules Right bundle branch block (RBBB) determined by electrocardiography Sinus bradycardia Vitamin B12 deficiency Vitamin D deficiency Surgical History History of cardioversion History of colon resection History of prostate surgery History of radiofrequency ablation procedure for cardiac arrhythmia Hx of colonoscopy Hx of colostomy Hx of endoscopy Hx of hand surgery Hx of knee surgery Hx of ventral hernia repair Family History Family History Father No problems noted. Mother CVD (cardiovascular disease) CHF (congestive heart failure) Social History Social History Household Members: Spouse Housing: House Do you presently have visiting nurse or other home services: Yes Alcohol intake: current Alcohol intake frequency: does not drink Patient Tobacco Use Status: Never used Tobacco Use of substances other than those prescribed or required for medical reasons: No Advance Directives: Yes Advance Directives Information Provided: Yes Advance Directives on File: No service: Yes Current occupational status: retired Physical Exam Vital Signs: Vital Signs: Last Vital Signs Temp 96.9 F 11/29/20 09:19 Pulse 49 L 11/29/20 10:09 Resp 16 11/29/20 10:09 BP 124/58 L 11/29/20 10:09 Pulse Ox 94 11/29/20 10:09 Body Mass Index 25.8 Const: General: healthy appearing Nutritional Appearance: average body habitus Orientation/consciousness: oriented to person and patient oriented x3 Limitations: no limitations HENMT: Other: tongue is swollen and thick uvula in normal Head: Yes normal to inspection Ears: external ears normal General nose exam: Normal external nose present Mouth: Normal oral and palatal mucosa present Throat: Yes posterior oropharynx normal Eyes: General: appearance normal, both eyes and all related structures Neck: Other: supple Neck: Yes normal visual inspection Chest: Chest palpation & inspection: normal inspection of the chest Resp: Auscultation: clear to auscultation bilaterally Cardio: Jugular venous distension: no JVD Rate: regular rate Rhythm: regular rhythm Heart sounds: S1 normal heart sound present and S2 normal heart sound present GI: Inspection: Yes normal to inspection Palpation (GI): Soft to palpation, nontender and No hepatosplenomegaly present Auscultation: normal bowel sounds : General: Yes no CVA tenderness Back/Spine/Pelvis: Back: no CVA tenderness Skin: General skin exam: no rashes or lesions noted Neuro: General: oriented to person and patient oriented x3 Cranial nerves: Yes CN's II-XII intact bilaterally Motor exam (neuro): 5/5 motor strength present throughout Sensory Exam: No Sensory deficit (Neuro) Extrem: General: Yes normal to inspection Psych: Appearance: grossly normal Course Reevaluation(s) Reevaluation #1: Impression is most likely angioedema and not allergic reaction will take off both lisinopril and levaquin Time: 10:00 Reevaluation #2: tongue is down, feeling much better will dc home Time: 12:07 Discharge Plan Discharge Clinical Impression: Angioedema Qualifiers: Encounter type: initial encounter Qualified Code(s): T78.3XXA - Angioneurotic edema, initial encounter Patient Disposition: Home, Self-Care Instructions: Angioedema (ED) Additional Instructions: stop both levaquin and lisinopril Prescriptions: New prednisone 20 mg tablet 60 mg PO DAILY Qty: 12 RF: 0 sulfamethoxazole-trimethoprim [Bactrim DS] 800-160 mg tablet 1 tab PO BID Qty: 28 RF: 0 No Action amiodarone 200 mg tablet 200 mg PO DAILY Qty: 90 RF: 3 lisinopril 10 mg Tablet 10 mg PO DAILY RF: 0 levofloxacin 500 mg tablet 500 mg PO Q24H 12 Days Qty: 12 RF: 0 lisinopril 20 mg tablet 20 mg PO BEDTIME RF: 0 Eliquis 5 mg tablet 5 mg PO BID RF: 0 atorvastatin 20 mg tablet 20 mg PO BEDTIME RF: 0 omeprazole 20 mg capsule,delayed release(DR/EC) 20 mg PO DAILY RF: 0 amlodipine 5 mg tablet 5 mg PO DAILY Qty: 90 RF: 1 Referrals: Prem Green MD [Primary Care Provider] - 2 days
[2020-11-29] MEDS: diphenhydrAMINE HCL 50 MG/ML VIAL 25 MG IVPUSH (10:08)
[2020-11-29 10:09] VITALS: BP 124/58; PULSE 49; RESP 16; O2SAT 94
[2020-11-29] MEDS: methylPREDNISolone Sod Succ 125 MG/2 ML VIAL IVPUSH (10:09)
--- NOTE | 2020-11-29 10:14 | PC.NURSE ---
RA sat 93-94%, placed on 2lpm via nc and sat up to 97%, pt denies SOB or diff breathing, LS clear anteriorly
--- NOTE | 2020-11-29 10:51 | PC.NURSE ---
Report received, care assumed. Patient indicating his tongue feels less swollen to him. Family indicating his tongue is still swollen compared to his baseline. Airway patent, sating 97 on 2L oxygen at this time.
== END 2020-11-29 12:49 | disposition home or self-care (01) ==
PROVIDERS: Emergency Provider Emergency Medicine; PCP Internal Medicine
DX: T78.3XXA Angioneurotic edema, initial encounter (principal); I48.0 Paroxysmal atrial fibrillation; I12.9 Hypertensive chronic kidney disease with stage 1 through stage 4 chronic kidney disease, or unspecified chronic kidney disease; N18.2 Chronic kidney disease, stage 2 (mild); Z79.01 Long term (current) use of anticoagulants; Z79.899 Other long term (current) drug therapy
CPT/HCPCS: 96374; 96375; 99284; J1200; J2930

== ENCOUNTER → 2021-01-11 13:10 | Outpatient (BNVA) | payer MEDICARE, SELFPAY | PROVIDERS: PCP Internal Medicine; Visit Provider Urology | DX: N41.0 Acute prostatitis (principal) | CPT/HCPCS: 99212 ==

== ENCOUNTER → 2021-01-15 13:43 | Outpatient (BNVA) | payer MEDICARE, OTHER, SELFPAY | PROVIDERS: PCP Internal Medicine; Visit Provider Internal Medicine Cardiovascular Disease | DX: I48.0 Paroxysmal atrial fibrillation (principal); I25.10 Atherosclerotic heart disease of native coronary artery without angina pectoris; Z79.01 Long term (current) use of anticoagulants; Z79.899 Other long term (current) drug therapy | CPT/HCPCS: 93005; 99212 ==

== ENCOUNTER 2021-02-01 08:43 | Outpatient (REF) | payer MEDICARE, SELFPAY ==
[2021-02-01 09:50] LABS: MANUAL DIFF FLAG NO
[2021-02-01 09:53] LABS: Basophils Percent Auto 0.5 % (0-2); Eosinophils Absolute Auto 0.2 X10*3/uL (0.0-0.4); Eosinophils Percent Auto 2.3 % (0-4); Hematocrit 44.1 % (42-52); Hemoglobin 14.2 g/dl (14.0-18.0); Imm Gran Abs Auto 0.03 X10*3/uL (0.00-0.03); Imm Gran Pct Auto 0.5 % (0.0-0.4); Lymphocytes Absolute Auto 1.5 X10*3/uL (1.2-4.9); Lymphocytes Percent Auto 22.3 % (20-40); Mean Corpuscular HGB Conc 32.2 g/dl (31.0-36.0); Mean Corpuscular Hemoglobin 31.1 pg (27.0-33.0); Mean Corpuscular Volume 96.7 fL (80-98); Mean Platelet Volume 11.6 fL (9.4-12.4); Monocytes Absolute Auto 0.6 X10*3/uL (0.1-1.2); Monocytes Percent Auto 8.5 % (2-11); Neutrophils Absolute Auto 4.4 X10*3/uL (2.0-8.3); Neutrophils Percent Auto 65.9 % (45-73); Platelet Count 221 X10*3/uL (160-400); Red Blood Count 4.56 X10*6/uL (4.60-5.80); Red Cell Distribution Width 15.9 % (11.0-16.0); White Blood Count 6.6 X10*3/uL (4.8-10.8)
[2021-02-01 10:08] LABS: Appearance Urine CLEAR; Color Urine YELLOW; Glucose Urine UA NEG (NEG); Leukocyte Esterase Urine NEG (NEG); Nitrite Urine NEG (NEG); Urine Blood NEG (NEG); Urine Ketones NEG (NEG); Urine Protein NEG (NEG-TRACE)
[2021-02-01 10:36] LABS: Alanine Aminotransferase 25 U/L (0-40); Albumin Level 4.2 g/dL (3.5-5.0); Alkaline Phosphatase 61 U/L (39-117); Anion Gap 13 (12-20); Aspartate Amino Transferase 29 U/L (5-37); Bilirubin Total 0.8 mg/dL (0.0-1.0); Blood Urea Nitrogen 22 mg/dL (9-16); Calcium 9.7 mg/dL (8.4-10.2); Carbon Dioxide 27 mmol/L (22-29); Chloride 106 mmol/L (96-108); Cholesterol 178 mg/dL; Estimated Glomerular Filt Rate 54; Glucose Fasting 95 mg/dL (60-99); HDL Cholesterol 84 mg/dL; LDL Cholesterol Calculated 81 mg/dl; Potassium 4.9 mmol/L (3.3-5.1); Sodium 141 mmol/L (135-145); Total Protein 6.6 g/dL (6.5-8.0); Triglycerides 66 mg/dL
[2021-02-01 10:41] LABS: TSH reflex Free T4 3.22 uIU/mL (0.32-4.0); Vitamin D 25-OH Total 27.9 ng/mL (>30)
[2021-02-01 10:52] LABS: Folate 9.3 ng/mL (> or = 4.0); Vitamin B12 566 pg/mL (200-900)
== END 2021-02-01 08:44 | disposition home or self-care (01) ==
LOC: HO.LAB 08:43
PROVIDERS: PCP Internal Medicine; Visit Provider Internal Medicine
DX: I12.9 Hypertensive chronic kidney disease with stage 1 through stage 4 chronic kidney disease, or unspecified chronic kidney disease (principal); N18.2 Chronic kidney disease, stage 2 (mild); E53.8 Deficiency of other specified B group vitamins; K29.50 Unspecified chronic gastritis without bleeding; I48.0 Paroxysmal atrial fibrillation; E78.2 Mixed hyperlipidemia; E87.5 Hyperkalemia; E66.3 Overweight; E55.9 Vitamin D deficiency, unspecified
CPT/HCPCS: 36415; 80053; 80061; 81003; 82306; 82607; 82746; 84443; 85025

== ENCOUNTER 2021-06-24 23:37 | Emergency (ER) | payer MEDICARE, SELFPAY ==
[2021-06-24 23:51] VITALS: BP 163/81; PULSE 84; RESP 18; TEMP 37.1; O2SAT 96; BMI 25.8
--- NOTE | 2021-06-25 01:41 | ED_ITS ---
HPI - Male Genitourinary General Chief complaint: Urogenital-Male Stated complaint: septic from prostate infection Time Seen by Provider: 06/25/21 01:07 History of Present Illness HPI Narrative: 85-year-old male with a history urinary retention in the past. Presented today worried that he has got sepsis. Patient claims he is unable to urinate since earlier tonight. No fever. Positive chills. No cough no congestion or upper respiratory symptoms patient immunized for COVID. History of prostatitis in the past. Patient from home. Related Data Home Medications Medication Instructions Recorded Confirmed apixaban 5 mg tablet (Eliquis) 5 mg PO BID 06/12/20 02/18/21 atorvastatin 20 mg tablet 20 mg PO BEDTIME 06/12/20 02/18/21 omeprazole 20 mg capsule,delayed 20 mg PO DAILY 06/12/20 02/18/21 release Previous Rx's Medication Instructions Recorded amiodarone 200 mg tablet 200 mg PO DAILY #90 tab 08/24/20 epinephrine 0.3 mg/0.3 mL 0.3 mg (0.3 mL) IM Q15M PRN 30 12/01/20 injection, auto-injector (EpiPen Days #2 ea 2-Jeyson) amlodipine 5 mg tablet 5 mg PO DAILY #90 tab 12/11/20 Allergies Allergy/AdvReac Type Severity Reaction Status Date / Time amoxicillin Allergy Unknown Unknown Verified 06/24/21 23:51 [Augmentin] clavulanic acid Allergy Unknown unknown Verified 06/24/21 23:51 [Augmentin] raw cherries Allergy Severe anaphylaxis Uncoded 06/24/21 23:51 flores Allergy Unknown anaphalyxis Uncoded 06/24/21 23:51 Review of Systems Verdana 4l Review of Systems: Verdana 4d Positive history of Verdana 4d retention History of prostatitis No cough and no congestion or upper respiratory symptoms Unable urinate No nausea no vomiting Verdana 4d Yes all other systems are reviewed and are negative PMFSH Past Medical History Attestation statement: The following information was validated with the patient. Medical History Angioedema Atrial fibrillation CAD (coronary artery disease) Chronic gastritis without bleeding Chronic kidney disease, stage II (mild) Hearing aid worn History of cardiomyopathy History of congestive heart failure HTN (hypertension) Hyperkalemia Hyperlipidemia On amiodarone therapy Overweight (BMI 25.0-29.9) Paroxysmal atrial fibrillation Prostatitis Pulmonary nodules Right bundle branch block (RBBB) determined by electrocardiography Sinus bradycardia Vitamin B12 deficiency Vitamin D deficiency Surgical History History of cardioversion History of colon resection History of prostate surgery History of radiofrequency ablation procedure for cardiac arrhythmia Hx of colonoscopy Hx of colostomy Hx of endoscopy Hx of hand surgery Hx of knee surgery Hx of ventral hernia repair Family History Family History Father No problems noted. Mother CVD (cardiovascular disease) CHF (congestive heart failure) Social History Social History Household Members: Spouse Housing: House Do you presently have visiting nurse or other home services: Yes Alcohol intake: current Alcohol intake frequency: holidays/special occasions only Alcohol type: wine Patient Tobacco Use Status: Never used Tobacco Second Hand Smoke Exposure: No Advance Directives: No Advance Directives Information Provided: Yes service: Yes Current occupational status: retired Physical Exam Verdana 4l Vital Signs: Verdana 4d Verdana 4d Vital Signs: Verdana 4d Verdana 4Bd Last Vital Signs Verdana 4d Transmission Inspector New 4d Transmission Inspector New 4d Temp 99.5 F 06/25/21 01:44 Transmission Inspector New 4d Pulse 78 06/25/21 01:44 Transmission Inspector New 4d Resp 16 06/25/21 01:44 BP 152/70 H 06/25/21 01:44 Pulse Ox 95 06/25/21 01:44 BMI result Body Mass Index 25.8 Appearance: Alert. Oriented X3. No acute distress. Eyes: Pupils equal, round and reactive to light. ENT: Pharynx normal. Neck: Normal inspection. Neck supple. No lymph nodes noted. No crepitus CVS: Normal heart rate and rhythm. Pulses normal. Normal S1 and S2 Respiratory: No respiratory distress. Breath sounds normal. No Wheezing. No rales Abdomen: Soft and nontender. No rigidity. No distention. good BS x4 Skin: Skin warm and dry. Normal skin color. Normal skin turgor. Extremities: No lower extremity edema. Neurovascular intact to all extremities. No Lacerations. No Rash Neuro: Oriented X 3. No motor deficit. No sensory deficit. Moving all extermities. No slurred speech MDM - Male Genitourinary MDM Narrative Medical decision making narrative: Patient is 85 years old. Unable to urinate. Bladder scan was approximately 300 cc of urine. A Mcdonnell catheter was placed by myself. Fourteen Romanian pass easily without any difficulty. Sterile technique was observed. Balloon pop up to 4 cc. No complications. Will keep the Mcdonnell catheter in place. Urine was not infected. Electrolytes unremarkable. Will discharge patient home. Previous history of retention in the past for Medical Records Attestation: I reviewed the patient's medical records. Lab Data Attestation: I reviewed the patient's lab results. Result diagrams: 06/25/21 01:53 06/25/21 01:53 Labs: Lab Results 06/25/21 06/25/21 06/25/21 Range/Units 01:53 01:53 01:53 WBC 12.9 H (4.8-10.8) X10*3/uL RBC 4.37 L (4.60-5.80) X10*6/uL Hgb 13.6 L (14.0-18.0) g/dl Hct 40.8 L (42.0-52.0) % MCV 93.4 (80.0-98.0) fL MCH 31.1 (27.0-33.0) pg MCHC 33.3 (31.0-36.0) g/dl RDW 15.6 (11.0-16.0) % Plt Count 199 (160-400) X10*3/uL MPV 11.1 (9.4-12.4) fL Immature Gran % (Auto) 0.2 (0.0-0.4) % Neut % (Auto) 91.3 H (45-73) % Lymph % (Auto) 2.6 L (20-40) % [place] % (Auto) 5.6 (2-11) % Eos % (Auto) 0.1 (0-4) % Baso % (Auto) 0.2 (0-2) % Lymph # (Auto) 0.3 L (1.2-4.9) X10*3/uL [place] # (Auto) 0.7 (0.1-1.2) X10*3/uL Eos # (Auto) 0.0 (0.0-0.4) X10*3/uL Baso # (Auto) 0.0 (0.0-0.2) X10*3/uL Abs Immat Gran (auto) 0.03 (0.00-0.03) X10*3/uL Absolute Neuts (auto) 11.8 H (2.0-8.3) x10*3/uL Absolute Nucleated RBC 0.000 (0.0-0.012) X10*3/uL Nucleated RBC % (auto) 0.0 (0.0-0.2) /100WBC Smear Tech's Comments VERIFIED Sodium 140 (135-145) mmol/L Potassium 4.2 (3.3-5.1) mmol/L Chloride 106 (96-108) mmol/L Carbon Dioxide 23 (22-29) mmol/L Anion Gap 15 (12-20) BUN 23 H (9-16) mg/dL Creatinine 1.20 (0.5-1.4) mg/dL Estim Creat Clear Calc 42.0 Estimated GFR 58 Random Glucose 99 (60-115) mg/dL Lactic Acid 0.9 (0.5-2.0) mmol/L Calcium 9.2 (8.4-10.2) mg/dL Total Bilirubin 0.6 (0.0-1.0) mg/dL AST 24 (5-37) U/L ALT 18 (0-40) U/L Alkaline Phosphatase 59 (39-117) U/L Total Protein 6.6 (6.5-8.0) g/dL Albumin 4.1 (3.5-5.0) g/dL Lipase 48 (8-78) U/L Urine Color Urine Appearance Urine pH (5.0-8.0) Ur Specific [place] (1.005-1.025) Urine Protein (NEG-TRACE) MG/DL Urine Glucose (UA) (NEG) MG/DL Urine Ketones (NEG) MG/DL Urine Blood (NEG) Urine Nitrite (NEG) Ur Leukocyte Esterase (NEG) Urine RBC (0) /HPF Urine WBC (0-4) /HPF Ur Squamous Epith Cells /LPF Urine Bacteria /LPF 06/25/21 Range/Units 01:53 WBC (4.8-10.8) X10*3/uL RBC (4.60-5.80) X10*6/uL Hgb (14.0-18.0) g/dl Hct (42.0-52.0) % MCV (80.0-98.0) fL MCH (27.0-33.0) pg MCHC (31.0-36.0) g/dl RDW (11.0-16.0) % Plt Count (160-400) X10*3/uL MPV (9.4-12.4) fL Immature Gran % (Auto) (0.0-0.4) % Neut % (Auto) (45-73) % Lymph % (Auto) (20-40) % [place] % (Auto) (2-11) % Eos % (Auto) (0-4) % Baso % (Auto) (0-2) % Lymph # (Auto) (1.2-4.9) X10*3/uL [place] # (Auto) (0.1-1.2) X10*3/uL Eos # (Auto) (0.0-0.4) X10*3/uL Baso # (Auto) (0.0-0.2) X10*3/uL Abs Immat Gran (auto) (0.00-0.03) X10*3/uL Absolute Neuts (auto) (2.0-8.3) x10*3/uL Absolute Nucleated RBC (0.0-0.012) X10*3/uL Nucleated RBC % (auto) (0.0-0.2) /100WBC Smear Tech's Comments Sodium (135-145) mmol/L Potassium (3.3-5.1) mmol/L Chloride (96-108) mmol/L Carbon Dioxide (22-29) mmol/L Anion Gap (12-20) BUN (9-16) mg/dL Creatinine (0.5-1.4) mg/dL Estim Creat Clear Calc Estimated GFR Random Glucose (60-115) mg/dL Lactic Acid (0.5-2.0) mmol/L Calcium (8.4-10.2) mg/dL Total Bilirubin (0.0-1.0) mg/dL AST (5-37) U/L ALT (0-40) U/L Alkaline Phosphatase (39-117) U/L Total Protein (6.5-8.0) g/dL Albumin (3.5-5.0) g/dL Lipase (8-78) U/L Urine Color YELLOW Urine Appearance CLEAR Urine pH 6.0 (5.0-8.0) Ur Specific [place] 1.020 (1.005-1.025) Urine Protein NEG (NEG-TRACE) MG/DL Urine Glucose (UA) NEG (NEG) MG/DL Urine Ketones NEG (NEG) MG/DL Urine Blood 1+ H (NEG) Urine Nitrite NEG (NEG) Ur Leukocyte Esterase NEG (NEG) Urine RBC 1-4 (0) /HPF Urine WBC 0-2 (0-4) /HPF Ur Squamous Epith Cells 1+ /LPF Urine Bacteria 1+ /LPF Discharge Plan Discharge Clinical Impression: 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
[2021-06-25 01:44] VITALS: BP 152/70; PULSE 78; RESP 16; TEMP 37.5; O2SAT 95
[2021-06-25] MEDS: Lidocaine HCl 2 % Urojet 10 ML JEL.PF.APP TOPICAL (01:48)
[2021-06-25 02:01] LABS: Appearance Urine CLEAR; Basophils Percent Auto 0.2 % (0-2); Color Urine YELLOW; Eosinophils Percent Auto 0.1 % (0-4); Glucose Urine UA NEG (NEG); Hematocrit 40.8 % (42.0-52.0); Hemoglobin 13.6 g/dl (14.0-18.0); Imm Gran Abs Auto 0.03 X10*3/uL (0.00-0.03); Imm Gran Pct Auto 0.2 % (0.0-0.4); Leukocyte Esterase Urine NEG (NEG); Lymphocytes Absolute Auto 0.3 X10*3/uL (1.2-4.9); Lymphocytes Percent Auto 2.6 % (20-40); MANUAL DIFF FLAG SCAN; Mean Corpuscular HGB Conc 33.3 g/dl (31.0-36.0); Mean Corpuscular Hemoglobin 31.1 pg (27.0-33.0); Mean Corpuscular Volume 93.4 fL (80.0-98.0); Mean Platelet Volume 11.1 fL (9.4-12.4); Monocytes Absolute Auto 0.7 X10*3/uL (0.1-1.2); Monocytes Percent Auto 5.6 % (2-11); Neutrophils Absolute Auto 11.8 x10*3/uL (2.0-8.3); Neutrophils Percent Auto 91.3 % (45-73); Nitrite Urine NEG (NEG); Platelet Count 199 X10*3/uL (160-400); Red Blood Count 4.37 X10*6/uL (4.60-5.80); Red Cell Distribution Width 15.6 % (11.0-16.0); SCAN SMEAR FLAG 1; UACC Culture Trigger NO; Urine Blood 1+ (NEG); Urine Ketones NEG (NEG); Urine Protein NEG (NEG-TRACE); White Blood Count 12.9 X10*3/uL (4.8-10.8)
[2021-06-25 02:02] LABS: SLIDE REVIEW VERIFIED
--- NOTE | 2021-06-25 02:04 | PC.NURSE ---
Did a bladder scan on pt with 293 ml reported. RN and MD aware
[2021-06-25 02:10] LABS: Bacteria Urine 1+ /LPF; Squamous Epithelial Cell Urine 1+ /LPF; WBC Urine 0-2 /HPF (0-4)
[2021-06-25 02:11] LABS: Lactic Acid 0.9 mmol/L (0.5-2.0)
[2021-06-25 02:19] LABS: Alanine Aminotransferase 18 U/L (0-40); Albumin Level 4.1 g/dL (3.5-5.0); Alkaline Phosphatase 59 U/L (39-117); Anion Gap 15 (12-20); Aspartate Amino Transferase 24 U/L (5-37); Bilirubin Total 0.6 mg/dL (0.0-1.0); Blood Urea Nitrogen 23 mg/dL (9-16); Calcium 9.2 mg/dL (8.4-10.2); Carbon Dioxide 23 mmol/L (22-29); Chloride 106 mmol/L (96-108); Estimated Glomerular Filt Rate 58; Glucose Random 99 mg/dL (60-115); Lipase 48 U/L (8-78); Potassium 4.2 mmol/L (3.3-5.1); Sodium 140 mmol/L (135-145); Total Protein 6.6 g/dL (6.5-8.0)
--- NOTE | 2021-06-25 03:37 | PC.NURSE ---
14fr coude cath inserted by w/o difficulty. Pt drained about 500cc clear yellow urine, pt was d/c w/ pierce cath in place
== END 2021-06-25 03:59 | disposition home or self-care (01) ==
PROVIDERS: Emergency Provider Emergency Medicine Emergency Medical Services
DX: R33.9 Retention of urine, unspecified (principal); Z79.899 Other long term (current) drug therapy
CPT/HCPCS: 36415; 80053; 81001; 81003; 83605; 83690; 85025; 87040; 99283

== ENCOUNTER → 2021-06-29 07:59 | Outpatient (REF) | payer MEDICARE, SELFPAY ==
--- NOTE | 2021-06-29 08:02 | CA_ITS ---
Transthoracic Echocardiogram Patient (Last, First, Middle): Suhail Reece J Gender: Male Date of : 1935 Age: 85 Procedure Date: 06/29/2021 Procedure Type: Transthoracic Echocardiogram Location: OP Height: 165.1 cm Weight: 72.58 kg BSA: 1.80 m2 Heart Rate: bpm BP: 118 / 60 mmHg Scissors Grinder: Referring MD: Ricky Macias MD Symptoms: I48.0 - Paroxysmal atrial fibrillation Study Quality: Fair ECG Rhythm: Sinus Conclusions: - The left ventricular systolic function is normal. The calculated ejection fraction is 60% by biplane method. - Grade 3 diastolic dysfunction. See comments below. - There is mild aortic valve regurgitation. - Mild pulmonary hypertension is present. 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 Findings Left Ventricle Normal left ventricular cavity size. There is mildly increased left ventricular wall thickness. The left ventricular systolic function is normal. The calculated ejection fraction is 60% by biplane method. There is no evidence of regional wall motion abnormalities. Grade 3 diastolic dysfunction. Mitral E/A is 2.9, which by criteria indicates advanced diastolic dysfunction; previously 1.4. However, pulmonary hypertension is minimal and mitral annular velocities still only in low normal range. Right Ventricle Normal right ventricular cavity size and systolic function. Atria The left atrium is moderately dilated. The right atrium is normal in size. Aortic Valve There is a normal trileaflet aortic valve. There is no aortic valve stenosis. There is mild aortic valve regurgitation. Mitral Valve The mitral valve appears normal. There is trace mitral valve regurgitation. There is no mitral valve stenosis. Pulmonic Valve The pulmonic valve is likely normal. There is mild pulmonic valve regurgitation. Tricuspid Valve Normal tricuspid valve structure. There is trace tricuspid valve regurgitation. The right ventricular systolic pressure is 41 mmHg. Mild pulmonary hypertension is present. 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 Venous The inferior vena cava is normal in size and collapses greater than 50% with inspiration. Pericardium/Pleural There is no evidence of pericardial effusion. Prior Study Comparison Changes noted compared to prior study dated: 05/02/2020. Diastolic dysfunction noted. Measurements 2D Linear Measurements IVSd: 1.12 0.6-0.9/0.6-1.0 cm LVIDd: 5.41 3.9-5.3/4.2-5.9 cm LVIDd Index: 3.01 2.4-3.2/2.2-3.1 cm/m2 LVIDs: 3.60 2.0-3.6 cm LVPWd: 1.16 0.7-1.1 cm Ao Root: 3.70 2.1-3.5 cm LA Diam: 4.80 2.7-3.8/3.0-4.0 cm LAIDs Index: 2.67 1.5-2.3 cm/m2 LV Mass: 308.27 67-162/88-224 g LV Mass Index: 171.26 43-95/49-115 g/m2 LVOT Diam: 2.30 3.0+(-)1.3 cm 2D Systolic Function EF 4C: 68.80 >55% EF 2C: 49.80 >55% EF BiP: 60.20 >55% Mitral Valve MV Pk E: 0.79 MV PK A: 0.27 MV Decel Time: 370.00 E/A: 2.90 E'Lateral: 10.90 E'Medial: 6.20 E/E' Med: 12.70 E/E' Lat: 7.20 PHT: 108.00 MVA PHT: 2.04 Decel [place]: 2.13 Aortic Valve AoV Pk Murray: 1.87 AoV Mn Murray: 1.19 AoV VTI: 0.43 AoV Pk Grad: 14.00 Aov Mn Grad: 7.00 RHONDA Cont.VTI: 2.29 AI Pk Murray: 3.84 AI [place]: 1.75 LVOT LVOT Pk Murray: 0.99 LVOT Mn Murray: 0.71 LVOT VTI: 0.24 LVOT Pk Grad: 4.00 LVOT Mn Grad: 2.00 LVOT Diam: 2.30 LVOT Area: 4.15 Diastolic Function MV Pk E: 0.79 MV Pk A: 0.27 E/A: 2.90 E'Medial: 6.20 E/E' Med: 12.70 E' Laterial: 10.90 E/E' Lat: 7.20 Right Ventricle TAPSE (mm): 27.00 Tricuspid Valve TR Pk Murray: 2.91 TR Pk Grad: 34.00 RVSP: 41.00 Great Vessels Aorta Ao Root-2D: 3.70 2.0-3.7 cm Ao Asc: 4.15 2.1-3.4 cm Pulmonary Valve PV Pk Murray: 1.05 Peak PV Grad: 4.00 Updated in Other Vendor System with Status of Final Kenan Zelaya MD electronically signed on 07/01/2021 1:45:59 PM with status of Final
== END ==
LOC: HO.CARD 07:59
PROVIDERS: Visit Provider Internal Medicine Cardiovascular Disease
DX: I48.0 Paroxysmal atrial fibrillation (principal)
CPT/HCPCS: 93306

== ENCOUNTER → 2021-07-03 09:11 | Outpatient (BNVA) | payer MEDICARE, SELFPAY | PROVIDERS: Visit Provider Urology | DX: R33.9 Retention of urine, unspecified (principal) | CPT/HCPCS: 51700; 51798 ==

== ENCOUNTER → 2021-07-17 10:17 | Outpatient (BNVA) | payer MEDICARE, SELFPAY | PROVIDERS: PCP Internal Medicine; Referring Provider Internal Medicine; Visit Provider Internal Medicine Cardiovascular Disease | DX: N41.0 Acute prostatitis (principal); N40.1 Benign prostatic hyperplasia with lower urinary tract symptoms; N13.8 Other obstructive and reflux uropathy; R33.9 Retention of urine, unspecified; I51.89 Other ill-defined heart diseases; I48.0 Paroxysmal atrial fibrillation; I25.10 Atherosclerotic heart disease of native coronary artery without angina pectoris; I95.9 Hypotension, unspecified | CPT/HCPCS: 93005; 99212; Q3014 ==

== ENCOUNTER → 2021-08-16 11:17 | Outpatient (BNVA) | payer MEDICARE, SELFPAY | PROVIDERS: PCP Internal Medicine; Visit Provider Urology | DX: N40.1 Benign prostatic hyperplasia with lower urinary tract symptoms (principal); N13.8 Other obstructive and reflux uropathy; N41.9 Inflammatory disease of prostate, unspecified | CPT/HCPCS: 51798; 99212 ==

== ENCOUNTER 2021-09-20 09:10 | Outpatient (REF) | payer MEDICARE, SELFPAY ==
--- NOTE | ~2021-09-20 | XR_ITS ---
EXAMINATION: XR CERVICAL SPINE CLINICAL INFORMATION: Neck pain. COMPARISON: None TECHNIQUE: 3 views of the cervical spine were obtained. FINDINGS: There is normal cervical lordosis. The vertebral heights and alignment is normal. There is loss of C3-C4 and C5-C6 disc heights. There is moderate to significant right C6-C7, C5-C6, C4-C5 and C3-C4 facet joint arthropathy and hypertrophy. There is minimal levoscoliosis of cervical spine likely chronic spasm or positional. No fracture or aggressive lytic or sclerotic process seen. XR/XR cervical spine 3V IMPRESSION: Mild levoscoliosis. Moderate hypertrophic arthropathy right C3-C4, C4-C5, C5-C6 and C6-C7 facet joints.
== END 2021-09-20 09:11 | disposition home or self-care (01) ==
LOC: HO.XRAY 09:10
PROVIDERS: PCP Internal Medicine; Visit Provider Internal Medicine
DX: M54.2 Cervicalgia (principal)
CPT/HCPCS: 72040

== ENCOUNTER → 2021-11-09 09:18 | Outpatient (BNVA) | payer MEDICARE, SELFPAY | PROVIDERS: PCP Internal Medicine; Visit Provider Surgery | DX: L98.9 Disorder of the skin and subcutaneous tissue, unspecified (principal) | CPT/HCPCS: 99202 ==

== ENCOUNTER → 2022-01-08 09:26 | Outpatient (BNVA) | payer MEDICARE, SELFPAY | PROVIDERS: PCP Internal Medicine; Referring Provider Internal Medicine; Visit Provider Internal Medicine Cardiovascular Disease | DX: I48.0 Paroxysmal atrial fibrillation (principal); I10 Essential (primary) hypertension; Z79.01 Long term (current) use of anticoagulants; Z79.899 Other long term (current) drug therapy | CPT/HCPCS: 93005; 99212 ==

== ENCOUNTER 2022-02-01 08:08 | Outpatient (REF) | payer MEDICARE, SELFPAY ==
--- NOTE | ~2022-02-01 | XR_ITS ---
EXAMINATION: XR CHEST CLINICAL INFORMATION: Paroxysmal atrial fibrillation COMPARISON: Chest 11/28/2020 TECHNIQUE: 2 views of the chest were obtained. FINDINGS: The lungs are well-expanded and clear heart size and pulmonary vascularity is within normal limits. There is moderate spondylosis dorsal spine. No lytic process. XR/XR chest 2V IMPRESSION: Unremarkable chest examination. No change from previous exam 11/28/2020
[2022-02-01 08:22] LABS: MANUAL DIFF FLAG NO
[2022-02-01 08:48] LABS: Appearance Urine Clear; Color Urine Yellow; Glucose Urine UA Negative (Negative); Leukocyte Esterase Urine Negative (Negative); Nitrite Urine Negative (Negative); PH 6.5 (5.0-9.0); Specific Gravity - Urine 1.015 (1.005-1.025); Urine Blood Negative (Negative); Urine Ketones Negative (Negative); Urine Protein Negative (Neg-Trace)
[2022-02-01 08:52] LABS: Basophils Percent Auto 0.5 % (0-2); Eosinophils Absolute Auto 0.2 X10*3/uL (0.0-0.4); Eosinophils Percent Auto 3.4 % (0-4); Hematocrit 43.5 % (42.0-52.0); Hemoglobin 14.5 g/dl (14.0-18.0); Imm Gran Abs Auto 0.03 X10*3/uL (0.00-0.03); Imm Gran Pct Auto 0.5 % (0.0-0.4); Lymphocytes Absolute Auto 1.4 X10*3/uL (1.2-4.9); Mean Corpuscular HGB Conc 33.3 g/dl (31.0-36.0); Mean Corpuscular Hemoglobin 31.3 pg (27.0-33.0); Mean Platelet Volume 11.5 fL (9.4-12.4); Monocytes Absolute Auto 0.5 X10*3/uL (0.1-1.2); Monocytes Percent Auto 8.9 % (2-11); Neutrophils Absolute Auto 3.8 x10*3/uL (2.0-8.3); Neutrophils Percent Auto 62.7 % (45-73); Platelet Count 222 X10*3/uL (160-400); Red Blood Count 4.63 X10*6/uL (4.60-5.80); Red Cell Distribution Width 16.3 % (11.0-16.0)
[2022-02-01 09:23] LABS: Alanine Aminotransferase 21 U/L (0-40); Albumin Level 4.2 g/dL (3.5-5.0); Alkaline Phosphatase 66 U/L (39-117); Anion Gap 19 (12-20); Aspartate Amino Transferase 27 U/L (5-37); Bilirubin Total 0.9 mg/dL (0.0-1.0); Blood Urea Nitrogen 25 mg/dL (9-16); Calcium 9.2 mg/dL (8.4-10.2); Carbon Dioxide 20 mmol/L (22-29); Chloride 106 mmol/L (96-108); Cholesterol 188 mg/dL; Estimated Glomerular Filt Rate > 60; Glucose Fasting 105 mg/dL (60-99); HDL Cholesterol 82 mg/dL; LDL Cholesterol Calculated 95 mg/dl; Sodium 140 mmol/L (135-145); Total Protein 6.9 g/dL (6.5-8.0); Triglycerides 58 mg/dL
[2022-02-01 09:44] LABS: Vitamin D 25-OH Total 31.3 ng/mL (>30)
[2022-02-01 09:45] LABS: Prostate Specific Antigen 1.99 ng/mL (<0.05-4.0)
[2022-02-01 09:58] LABS: Folate 11.7 ng/mL (> or = 4.0); Vitamin B12 735 pg/mL (200-900)
[2022-02-01 10:56] LABS: Free T4 (Free Thyroxine) 0.99 ng/dL (0.71-1.85)
== END 2022-02-01 08:09 | disposition home or self-care (01) ==
LOC: HO.XRAY 08:08
PROVIDERS: Psychiatry & Neurology Child & Adolescent Psychiatry; Absent Provider Internal Medicine Cardiovascular Disease; PCP Internal Medicine; Visit Provider Internal Medicine
DX: Z12.5 Encounter for screening for malignant neoplasm of prostate (principal); I48.0 Paroxysmal atrial fibrillation; E78.00 Pure hypercholesterolemia, unspecified; E55.9 Vitamin D deficiency, unspecified; I10 Essential (primary) hypertension; E53.8 Deficiency of other specified B group vitamins; N40.1 Benign prostatic hyperplasia with lower urinary tract symptoms
CPT/HCPCS: 36415; 71046; 80053; 80061; 81003; 82306; 82607; 82746; 84153; 84439; 84443; 85025

== ENCOUNTER → 2022-02-19 08:16 | Outpatient (BNVA) | payer MEDICARE, SELFPAY | PROVIDERS: PCP Internal Medicine; Visit Provider Urology | DX: N40.1 Benign prostatic hyperplasia with lower urinary tract symptoms (principal); N13.8 Other obstructive and reflux uropathy; N41.9 Inflammatory disease of prostate, unspecified; N52.9 Male erectile dysfunction, unspecified | CPT/HCPCS: 51798; 99212 ==

== ENCOUNTER 2022-04-04 08:12 | Outpatient (REF) | payer MEDICARE, SELFPAY ==
--- NOTE | ~2022-04-04 | US_ITS ---
EXAMINATION: US ABDOMEN COMPLETE CLINICAL INFORMATION: Epigastric pain. COMPARISON: CT abdomen and pelvis 01/04/2015. TECHNIQUE: Real-time imaging of the abdominal viscera. FINDINGS: PANCREAS: Not well visualized due to bowel gas ABDOMINAL AORTA: The proximal, mid, and distal segments are normal in caliber. INFERIOR VENA CAVA: Visualized portions are normal. LIVER: The liver is normal in size. The liver contour is normal. Liver echotexture is slightly increased. No focal hepatic lesion. There is no intrahepatic biliary duct dilatation seen. GALLBLADDER: Normal. The gallbladder is physiologically distended without evidence of stones, sludge, polyps, wall thickening or pericholecystic fluid. COMMON BILE DUCT: Normal in caliber measuring 0.28 cm in diameter. RIGHT KIDNEY: Normal. No hydronephrosis. No renal calculi or focal parenchymal lesions. The kidney measures 11.0 cm in maximum dimension. LEFT KIDNEY: There is a 1.9 x 1.4 x 1.7 cm cyst upper pole. This is minimally complex wall thickening. No hydronephrosis or renal calculi. The kidney measures 11.0 cm in maximum dimension. SPLEEN: Normal. The spleen measures 8.9 cm in maximum dimension. FREE FLUID: None. US/US abdomen complete IMPRESSION: Slightly echogenic liver. 1.9 x 1.4 x 1.7 cm minimally complex cyst in the upper pole of the left kidney. Limited visualization of the pancreas.
== END 2022-04-04 08:13 | disposition home or self-care (01) ==
LOC: HO.HMGCX 08:12
PROVIDERS: PCP Internal Medicine; Visit Provider Internal Medicine Gastroenterology
DX: R10.13 Epigastric pain (principal)
CPT/HCPCS: 76700

== ENCOUNTER 2022-04-09 07:13 | Day surgery (SDC) | payer MEDICARE, SELFPAY ==
--- NOTE | 2022-04-08 14:04 | P.CONAN_ITS ---
Documented by User: Nimco Covarrubias NP 04/08/22 14:06 HPI - Anesthesia Eval Consult details Narrative: 86yo M for Upper Endoscopy Eliquis for afib PMFSH Active Problems Active Problems: All Active Problems (Updated 02/19/22 @ 10:09 by Jeff Hdz MD) Erectile dysfunction (Acute) Skin lesion of back (Acute) Neck pain (Acute) Prostatitis (Acute) BPH w urinary obs/LUTS (Acute) Diastolic dysfunction (Acute) Retention of urine (Acute) Encounter for Medicare annual wellness exam (Acute) Angioedema (Acute) Hypospadias (Acute) Exertional chest pain (Acute) Pulmonary nodules (Acute) Hyperkalemia (Acute) Overweight (BMI 25.0-29.9) (Acute) Vitamin D deficiency (Acute) Vitamin B12 deficiency (Acute) Chronic kidney disease, stage II (mild) (Acute) Chronic gastritis without bleeding (Acute) Sinus bradycardia (Acute) Right bundle branch block (RBBB) determined by electrocardiography (Acute) Hyperlipidemia (Acute) HTN (hypertension) (Acute) Paroxysmal atrial fibrillation (Acute) CAD (coronary artery disease) (Acute) Past Medical History Medical History Acute bacterial prostatitis Angioedema Atrial fibrillation CAD (coronary artery disease) Chronic gastritis without bleeding Chronic kidney disease, stage II (mild) Diastolic dysfunction Hearing aid worn History of cardiomyopathy History of congestive heart failure HTN (hypertension) Hyperkalemia Hyperlipidemia On amiodarone therapy Overweight (BMI 25.0-29.9) Paroxysmal atrial fibrillation Prostatitis Pulmonary nodules Retention of urine Right bundle branch block (RBBB) determined by electrocardiography Sinus bradycardia Vitamin B12 deficiency Vitamin D deficiency Family History Family History Father No problems noted. Mother CVD (cardiovascular disease) CHF (congestive heart failure) Surgical History Surgical History History of cardioversion History of colon resection History of prostate surgery History of radiofrequency ablation procedure for cardiac arrhythmia Hx of colonoscopy Hx of colostomy Hx of endoscopy Hx of hand surgery Hx of knee surgery Hx of ventral hernia repair Social History Social History Household Members: Spouse Housing: House Do you presently have visiting nurse or other home services: Yes Alcohol intake: current Alcohol intake frequency: holidays/special occasions only Alcohol type: wine Patient Tobacco Use Status: Never used Tobacco Second Hand Smoke Exposure: No Use of substances other than those prescribed or required for medical reasons: No Are you DNR?: No Advance Directives: No Advance Directives Information Provided: Yes service: Yes Current occupational status: retired Cognitive needs: No Hearing needs: Yes Vision needs: Yes Meds Allergies Allergy/AdvReac Type Severity Reaction Status Date / Time amoxicillin [Augmentin] Allergy Unknown Unknown Verified 02/25/22 10:51 clavulanic acid [Augmentin] Allergy Unknown unknown Verified 02/25/22 10:51 raw cherries Allergy Severe anaphylaxis Uncoded 02/25/22 10:51 flores Allergy Unknown anaphalyxis Uncoded 02/25/22 10:51 Home Medications Medication Instructions Recorded Confirmed Last Taken Type apixaban 5 mg tablet (Eliquis) 5 mg PO BID 06/12/20 02/25/22 04/06/22 History atorvastatin 20 mg tablet 20 mg PO BEDTIME 06/12/20 02/25/22 11/26/20 History omeprazole 20 mg capsule,delayed 20 mg PO DAILY 06/12/20 02/25/22 11/26/20 History release COVID-19 antigen test (Flowflex #1 ea 02/15/22 02/25/22 Unknown History COVID-19 Antigen Home Test kit) amiodarone 200 mg tablet See Rx Instructions PO DAILY 02/25/22 02/25/22 Unknown History Exam Exam Date and Time: April 08, 2022 1404 Pertinent Lab Results Pertinent Lab Results: Laboratory Tests 02/01/22 02/01/22 08:20 08:20 WBC 6.0 Hgb 14.5 Hct 43.5 Plt Count 222 Sodium 140 Potassium 5.0 Chloride 106 Carbon Dioxide 20 L BUN 25 H Creatinine 1.04 Narrative Narrative: EKG 12/2021 sinus bradycardia at 54 beats per minute first-degree AV block with right bundle-branch block Per 12/2021 cardiology office visit note: Myocardial perfusion study done on 06/13/2020 came out normal Echocardiogram done in April 2020 also came out normal, with normal left ventricular systolic function and ejection fraction estimated between 65-70%.? 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 and this will be monitored closely Assessment and Plan Assessment Anesthesia Assessment: Chart Reviewed Documented by User: Chikis Abraham MD 04/09/22 12:12 [facility] Active Problems Active Problems: All Active Problems (Updated 02/19/22 @ 10:09 by Jeff Hdz MD) Erectile dysfunction (Acute) Skin lesion of back (Acute) Neck pain (Acute) Prostatitis (Acute) BPH w urinary obs/LUTS (Acute) Diastolic dysfunction (Acute) Retention of urine (Acute) Encounter for Medicare annual wellness exam (Acute) Angioedema (Acute) Hypospadias (Acute) Exertional chest pain (Acute) Pulmonary nodules (Acute) Hyperkalemia (Acute) Overweight (BMI 25.0-29.9) (Acute) Vitamin D deficiency (Acute) Vitamin B12 deficiency (Acute) Chronic kidney disease, stage II (mild) (Acute) Chronic gastritis without bleeding (Acute) Sinus bradycardia (Acute) Right bundle branch block (RBBB) determined by electrocardiography (Acute) Hyperlipidemia (Acute) HTN (hypertension) (Acute) Paroxysmal atrial fibrillation (Acute) CAD (coronary artery disease) (Acute)- denies recent chest pain Hearing aids Past Medical History Medical History Acute bacterial prostatitis Angioedema Atrial fibrillation CAD (coronary artery disease) Chronic gastritis without bleeding Chronic kidney disease, stage II (mild) Diastolic dysfunction Hearing aid worn History of cardiomyopathy History of congestive heart failure HTN (hypertension) Hyperkalemia Hyperlipidemia On amiodarone therapy Overweight (BMI 25.0-29.9) Paroxysmal atrial fibrillation Prostatitis Pulmonary nodules Retention of urine Right bundle branch block (RBBB) determined by electrocardiography Sinus bradycardia Vitamin B12 deficiency Vitamin D deficiency Family History Family History Father No problems noted. Mother CVD (cardiovascular disease) CHF (congestive heart failure) Family history of problems with anesthesia: No Surgical History Surgical History History of cardioversion History of colon resection History of prostate surgery History of radiofrequency ablation procedure for cardiac arrhythmia Hx of colonoscopy Hx of colostomy Hx of endoscopy Hx of hand surgery Hx of knee surgery Hx of ventral hernia repair History of Problems with Anesthesia: No Social History Social History Household Members: Spouse Housing: House Do you presently have visiting nurse or other home services: Yes Alcohol intake: current Alcohol intake frequency: holidays/special occasions only Alcohol type: wine Patient Tobacco Use Status: Never used Tobacco Second Hand Smoke Exposure: No Use of substances other than those prescribed or required for medical reasons: No Are you DNR?: No Advance Directives: No Advance Directives Information Provided: Yes service: Yes Current occupational status: retired Cognitive needs: No Hearing needs: Yes Vision needs: Yes Meds Allergies Allergy/AdvReac Type Severity Reaction Status Date / Time amoxicillin [Augmentin] Allergy Unknown Unknown Verified 02/25/22 10:51 clavulanic acid [Augmentin] Allergy Unknown unknown Verified 02/25/22 10:51 raw cherries Allergy Severe anaphylaxis Uncoded 02/25/22 10:51 flores Allergy Unknown anaphalyxis Uncoded 02/25/22 10:51 Home Medications Medication Instructions Recorded Confirmed Last Taken Type apixaban 5 mg tablet (Eliquis) 5 mg PO BID 06/12/20 02/25/22 04/06/22 History atorvastatin 20 mg tablet 20 mg PO BEDTIME 06/12/20 02/25/22 11/26/20 History omeprazole 20 mg capsule,delayed 20 mg PO DAILY 06/12/20 02/25/22 11/26/20 History release COVID-19 antigen test (Flowflex #1 ea 02/15/22 02/25/22 Unknown History COVID-19 Antigen Home Test kit) amiodarone 200 mg tablet See Rx Instructions PO DAILY 02/25/22 02/25/22 Unknown History Exam Height,Weight and Vital Signs: Height 5 ft 6 in Weight 71.668 kg Vital Signs Temp Pulse Resp BP Pulse Ox O2 Del Method 97.5 F 50 18 145/48 H 98 04/09/22 07:49 04/09/22 07:49 04/09/22 07:49 04/09/22 07:49 04/09/22 07:49 04/09/22 07:49 Airway Mallampati Class: IV TM Dist: >3cm Neck ROM: Limited (Arthritis. No UE symptoms ) Loose/Missing/Broken Teeth: No Heart: RRR Lungs: CTAB Assessment and Plan Assessment Anesthesia Assessment: Anesthesia Plan Discussed Final Anesthetic Review Family History of Problems with Anesthesia: No History of Problems with Anesthesia: No NPO: Yes ASA Class: III Final Preanesthetic Review: No Changes in Pt Med Stat, Meds/Allgs Chart Reviewed, Consent Obtained/Reviewed and Anes Risks/Benef Reviewed Patient Risk: Intermediate Procedure Risk: Low Assessment/Block/Sedation in SS: Assess/Block/Sedation-SS Anesthetic Plan Anesthetic Plan: MAC: Disposition: Standard PACU
[2022-04-09 07:49] VITALS: BP 145/48; PULSE 50; RESP 18; TEMP 36.4; O2SAT 98; BMI 25.4
[2022-04-09] MEDS: Lactated Ringers 1,000 ML 50 ML IVCONT (08:37)
--- NOTE | 2022-04-09 09:29 | MHC.SHP ---
Pre-Procedural Eval Section A Date of Service: 04/09/22 The patient is an INPATIENT: No Changes since office visit: No Cold of Flu in the past 2 weeks, No New Medical Problems, No Changes in Medication and No Patient answered all questions The History & Physical has been completed within 30 days and I have reviewed it.: Yes Section B Chief Complaint: Gastro-esophageal reflux,Epigastric pain Allergies: Allergies Allergy/AdvReac Type Severity Reaction Status Date / Time amoxicillin [Augmentin] Allergy Unknown Unknown Verified 02/25/22 10:51 clavulanic acid [Augmentin] Allergy Unknown unknown Verified 02/25/22 10:51 raw cherries Allergy Severe anaphylaxis Uncoded 02/25/22 10:51 flores Allergy Unknown anaphalyxis Uncoded 02/25/22 10:51 Plan I have reviewed the history and physical and performed a pertinent physical examination on my patient. No changes have occurred unless specified.
[2022-04-09 10:00] VITALS: BP 105/50; PULSE 44; RESP 18; TEMP 36.2; O2SAT 96
--- NOTE | 2022-04-09 10:04 | PM.OP ---
Brief Operative Note Date of Service: 04/09/22 Pre-op diagnosis: gerd epigastric Post-op diagnosis: same Procedure: upper endoscopy Surgeon: Franck Bernal Anesthesia: MAC Was an Gaming Surveillance Observer used for this Procedure?: No Estimated blood loss (mL): 2 Pathology: other Condition: stable Disposition: PACU
[2022-04-09 10:25] VITALS: BP 147/70; PULSE 47; RESP 18; TEMP 36.5; O2SAT 96
--- NOTE | 2022-04-09 11:29 | OP_ITS ---
SURGEON: Franck Bernal MD INDICATIONS: Epigastric pain and gastroesophageal reflux disease. PREOPERATIVE DIAGNOSIS: POSTOPERATIVE DIAGNOSIS: PROCEDURE PERFORMED: Upper endoscopy with biopsy. ESTIMATED BLOOD LOSS: COMPLICATIONS: ANESTHESIA: Monitored anesthesia care. ASSISTANTS: SPECIMENS: DESCRIPTION OF PROCEDURE: The procedure was performed on 04/09/2022. The risks and benefits of the procedure were explained to the patient. Informed consent was obtained. The patient was placed in the left lateral decubitus position. The Olympus video gastroscope was introduced into the esophagus, stomach, and duodenum. Examination was performed. The scope was removed. He tolerated the procedure well and was returned to the recovery area in stable condition. FINDINGS: Esophagus: The esophagus was normal. There was no esophagitis. The EG junction was regular and biopsies were obtained from the EG junction. There was a 4 cm hiatal hernia. Stomach: The stomach showed no evidence of masses, ulcers, or polyps. Antral biopsies were obtained. Duodenum: The bulb and second portion were normal. IMPRESSION: Hiatal hernia. RECOMMENDATION: Follow up the biopsy results. MD MAURIZIO Jacobs/CLYDEL / [id number]
== END 2022-04-09 10:44 | disposition home or self-care (01) ==
PROVIDERS: PCP Internal Medicine; Visit Provider Internal Medicine Gastroenterology
PROC: 0DJ08ZZ Inspection of Upper Intestinal Tract, Via Natural or Artificial Opening Endoscopic (ICD-10-PCS; CPT 43235; principal; 2022-04-09 08:50)
DX: K21.9 Gastro-esophageal reflux disease without esophagitis (principal); K31.9 Disease of stomach and duodenum, unspecified; K44.9 Diaphragmatic hernia without obstruction or gangrene; K57.30 Diverticulosis of large intestine without perforation or abscess without bleeding; I48.0 Paroxysmal atrial fibrillation; I12.9 Hypertensive chronic kidney disease with stage 1 through stage 4 chronic kidney disease, or unspecified chronic kidney disease; N18.2 Chronic kidney disease, stage 2 (mild); E78.00 Pure hypercholesterolemia, unspecified; E55.9 Vitamin D deficiency, unspecified; Z79.01 Long term (current) use of anticoagulants; Z79.899 Other long term (current) drug therapy; Z90.49 Acquired absence of other specified parts of digestive tract; Z98.890 Other specified postprocedural states
CPT/HCPCS: 43239; 88305; 88342

== ENCOUNTER 2022-05-14 11:00 | Outpatient (RCR) | payer MEDICARE, SELFPAY ==
--- NOTE | 2022-05-02 12:48 | MHC.PT.EP ---
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 Pt is deemed an appropriate candidate to receive skilled PT services to address their physical impairments in order to improve thier functional ability. Frequency and Duration: The patient will be seen 2 x / wk x 5 wks. Short Term Goals: Initiate HEP. Improve baseline pain when irritated to < 6/10; initial: 9/10 Fci Goals: I with HEP. Improve TTP of R lateral neck to at most 1+ (mild); initial: 2+ (considerable). Pt will no longer be painful with R cervical AROM rotation. Pt will report able to drive as long as he'd like with slight pain in his neck; initial: moderate. Pt will report mildly disturbed sleep d/t cervical pain(1-2 hours disturbed); initial: completely disturbed (5-7 hours disturbed). Treatment Plan: Modalities to reduce pain, spasms and effusion. Manual therapy to restore motion and function. Therapeutic exercise to improve strength and flexibility. Neuromuscular re-education for posture and balance. Therapeutic activities to return to functional activities of daily living. Electronically signed by: Romel Sánchez PT. Please sign and return to therapist. Thank you for your referral.
--- NOTE | 2022-05-14 18:55 | MHC.PT.DC ---
[facility] [place] Office [place] Office [place] Office [address] Laura Sin [address] [phone] F: [phone] F: [phone] F: [phone] F: [phone] Physical Therapy Discharge Report Diagnosis: Cervicalgia Date of Surgery: Date of Evaluation: 05/01/22 Date of Discharge: 05/14/22 Treatments to Date: 4 Cancellations to Date: No Shows to Date: Discharge Status: Improved Function Independent with HEP Patient Elected to Stop Discharge Summary: Pt reports he is still limited of his ROM and pain though reports improved with gentle exercise ideas and wishes to DC in order to work on his basic program; Therapy is in agreement with this as he is I with his home program. Electronically signed by: Romel Sánchez PT Please sign and return to therapist. Thank you for your referral.
== END 2022-05-14 18:59 | disposition home or self-care (01) ==
LOC: HO.PTCHIC 11:00
PROVIDERS: PCP Internal Medicine; Visit Provider Internal Medicine
DX: M54.2 Cervicalgia (principal)
CPT/HCPCS: 97110; 97140; 97162

== ENCOUNTER → 2022-07-16 09:09 | Outpatient (REF) | payer MEDICARE, SELFPAY ==
--- NOTE | 2022-07-16 09:13 | CA_ITS ---
Transthoracic Echocardiogram Patient (Last, First, Middle): Suhail Reece J Gender: Male Date of : 1935 Age: 86 Procedure Date: 07/16/2022 Procedure Type: Transthoracic Echocardiogram Location: OP Height: 167.64 cm Weight: 72.58 kg BSA: 1.82 m2 Heart Rate: 53 bpm BP: 124 / 70 mmHg [employer]door [employer] Guides: SB Referring MD: Ricky Macias MD Symptoms: I48.0 - Paroxysmal atrial fibrillation Study Quality: Adequate ECG Rhythm: Bradycardia Conclusions: - The left ventricular systolic function is normal. The calculated ejection fraction is 58% by biplane method. - Grade 2-3 diastolic dysfunction. - The left atrium is moderately dilated. - There is mild aortic valve regurgitation. - Mild pulmonary hypertension is present. 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 Findings Left Ventricle Mildly increased left ventricular cavity size. There is normal left ventricular wall thickness. The left ventricular systolic function is normal. The calculated ejection fraction is 58% by biplane method. There is no evidence of regional wall motion abnormalities. Grade 2-3 diastolic dysfunction. Meets some criteria, but not all. Right Ventricle Normal right ventricular cavity size. There is low normal right ventricular systolic function. Atria The left atrium is moderately dilated. The right atrium is normal in size. Aortic Valve There is a normal trileaflet aortic valve. There is mild calcification of the aortic valve. There is no aortic valve stenosis. There is mild aortic valve regurgitation. Mitral Valve The mitral valve appears normal. There is trace mitral valve regurgitation. There is no mitral valve stenosis. Pulmonic Valve There is trace pulmonic valve regurgitation. Tricuspid Valve Normal tricuspid valve structure. There is mild tricuspid valve regurgitation. Mild pulmonary hypertension is present. Great Vessels The aortic annulus and sinuses of valsalva are normal in size. There is mild dilatation of the ascending aorta measuring 4.30 cm. Venous The inferior vena cava was not well visualized. Pericardium/Pleural There is no evidence of pericardial effusion. Prior Study Comparison Changes noted compared to prior study dated: 06/29/2021. Slight increase in ascending aortic size Change in left atrial size can also be technical. Measurements 2D Linear Measurements IVSd: 1.03 0.6-0.9/0.6-1.0 cm LVIDd: 5.79 3.9-5.3/4.2-5.9 cm LVIDd Index: 3.18 2.4-3.2/2.2-3.1 cm/m2 LVIDs: 4.49 2.0-3.6 cm LVPWd: 0.90 0.7-1.1 cm LA Diam: 4.90 2.7-3.8/3.0-4.0 cm LAIDs Index: 2.69 1.5-2.3 cm/m2 LV Mass: 277.01 67-162/88-224 g LV Mass Index: 152.20 43-95/49-115 g/m2 LVOT Diam: 2.30 3.0+(-)1.3 cm 2D Systolic Function EF 4C: 61.00 >55% EF 2C: 56.30 >55% EF BiP: 57.70 >55% Mitral Valve MV Pk E: 0.55 MV PK A: 0.21 MV Decel Time: 338.00 E/A: 2.60 E'Lateral: 7.38 E'Medial: 4.62 E/E' Med: 11.90 E/E' Lat: 7.40 PHT: 99.00 MVA PHT: 2.22 Decel [place]: 1.62 Aortic Valve AoV Pk Murray: 1.37 AoV Mn Murray: 0.97 AoV VTI: 0.34 AoV Pk Grad: 8.00 Aov Mn Grad: 4.00 RHONDA Cont.VTI: 2.55 LVOT LVOT Pk Murray: 1.03 LVOT Mn Murray: 0.62 LVOT VTI: 0.21 LVOT Pk Grad: 4.00 LVOT Mn Grad: 2.00 LVOT Diam: 2.30 LVOT Area: 4.15 Diastolic Function MV Pk E: 0.55 MV Pk A: 0.21 E/A: 2.60 E'Medial: 4.62 E/E' Med: 11.90 E' Laterial: 7.38 E/E' Lat: 7.40 Right Ventricle TAPSE (mm): 17.00 TVS' Murray: 10.30 Tricuspid Valve TR Pk Murray: 3.04 TR Pk Grad: 37.00 RA Press: 3.00 RVSP: 40.00 Great Vessels Aorta Sinus of Valsalva: 3.60 2.0-3.5 cm Ao Asc: 4.30 2.1-3.4 cm Pulmonary Valve PV Pk Murray: 0.90 Peak PV Grad: 3.00 Updated in Other Vendor System with Status of Final Kenan Zelaya MD electronically signed on 07/16/2022 11:33:11 AM with status of Final
== END ==
LOC: HO.CARD 09:09
PROVIDERS: Visit Provider Internal Medicine Cardiovascular Disease
DX: I48.0 Paroxysmal atrial fibrillation (principal)
CPT/HCPCS: 93306

== ENCOUNTER → 2022-08-06 09:02 | Outpatient (BNVA) | payer MEDICARE, SELFPAY | PROVIDERS: PCP Internal Medicine; Referring Provider Internal Medicine; Visit Provider Internal Medicine Cardiovascular Disease | DX: I51.89 Other ill-defined heart diseases (principal); I48.0 Paroxysmal atrial fibrillation; I71.20 Thoracic aortic aneurysm, without rupture, unspecified; R00.1 Bradycardia, unspecified; Z79.01 Long term (current) use of anticoagulants; Z79.899 Other long term (current) drug therapy | CPT/HCPCS: 93005; 99212 ==

== ENCOUNTER → 2022-08-23 08:33 | Outpatient (BNVA) | payer MEDICARE, SELFPAY | PROVIDERS: PCP Internal Medicine; Visit Provider Urology | DX: N40.1 Benign prostatic hyperplasia with lower urinary tract symptoms (principal); N13.8 Other obstructive and reflux uropathy; N52.9 Male erectile dysfunction, unspecified | CPT/HCPCS: 51798; 99212 ==

== ENCOUNTER 2023-01-17 08:04 | Outpatient (AMB) | payer MEDICARE, SELFPAY ==
--- NOTE | 2023-01-17 08:06 | MHC.OFFWIV ---
Intake Vital Signs 01/17/23 08:07 Height 5 ft 6 in Weight 169 lb 6 oz BMI 27.3 BP 110/60 Blood Pressure Location Rt brachial Position Sitting Pulse 52 Pulse Source Pulse Oximeter Temp 98.2 F Temp Source Oral Pulse Oximetry (%) 97 Oxygen Delivery Method Room Air Intake Visit Reasons: EP RT Foot Intake Note: Pt is here for Rt foot ankle and foot pain, hard to put weight on it. Pt states thinks a broken bone. Patient Tobacco Use Status: Never used Tobacco Allergies amoxicillin [Augmentin] Allergy (Unknown, Verified 01/17/23 08:11) Unknown clavulanic acid [Augmentin] Allergy (Unknown, Verified 01/17/23 08:11) unknown raw cherries Allergy (Severe, Uncoded 09/05/22 10:10) anaphylaxis flores Allergy (Unknown, Uncoded 09/05/22 10:10) anaphalyxis Do you need a note to return to daycare/school/sports/work: No HPI HPI Comments History of Present Illness Details This is an 87-year-old male who presents to the office today for sick visit. Patient complaining of atraumatic right foot pain x3 days. He states he has some chronic right foot pain due to ?collapsed bones?. He started to developed acute on chronic atraumatic right foot pain 3 days ago. He denies any trauma/injury or increased activity. He otherwise feels well without fever/chills, chest pain, shortness of breath, numbness/tingling of his toes, abdominal pain, nausea/vomiting/diarrhea. Atraumatic right foot pain x3 days TTP to the base of the 5th metatarsal No ecchymosis or edema Dx: Right foot sprain/strain/tendinitis X-ray right foot ordered otherwise supportive management [facility] Medical History Acute bacterial prostatitis Angioedema Atrial fibrillation CAD (coronary artery disease) Chronic gastritis without bleeding Chronic kidney disease, stage II (mild) Diastolic dysfunction Hearing aid worn History of cardiomyopathy History of congestive heart failure HTN (hypertension) Hyperkalemia Hyperlipidemia On amiodarone therapy Overweight (BMI 25.0-29.9) Paroxysmal atrial fibrillation Prostatitis Pulmonary nodules Retention of urine Right bundle branch block (RBBB) determined by electrocardiography Sinus bradycardia Vitamin B12 deficiency Vitamin D deficiency Surgical History History of cardioversion History of colon resection History of prostate surgery History of radiofrequency ablation procedure for cardiac arrhythmia Hx of colonoscopy Hx of colostomy Hx of endoscopy Hx of hand surgery Hx of knee surgery Hx of ventral hernia repair Family History Father No problems noted. Mother CVD (cardiovascular disease) CHF (congestive heart failure) Social History Household Members: Spouse Housing: House Do you presently have visiting nurse or other home services: Yes Alcohol intake: current Alcohol intake frequency: holidays/special occasions only Alcohol type: wine Patient Tobacco Use Status: Never used Tobacco e-Cigarette/Vaping Use: Never Used Second Hand Smoke Exposure: No service: Yes Current occupational status: retired Cognitive needs: No Hearing needs: Yes Vision needs: Yes Review of Systems Const All systems reviewed & are unremarkable except as noted in HPI and below Reports no additional complaints Eyes Reports no additional complaints ENT Reports no additional complaints Card Reports no additional complaints Resp Reports no additional complaints GI Reports no additional complaints Reports no additional complaints Musc Reports no additional complaints, Reports deformity (chronic) and Reports arthralgias Skin/Breast Reports system reviewed and no additional complaints, except as documented Neuro Reports no additional complaints Psych Reports no additional complaints Endo Reports no additional complaints Moises/Lymph Reports no additional complaints Aller/Immun Reports no additional complaints Physical Exam Vital Signs: Last Vital Signs Temp 98.2 F 01/17/23 08:07 Pulse 52 01/17/23 08:07 Pulse Ox 97 01/17/23 08:07 Oxygen Delivery Method Room Air 01/17/23 08:07 BMI result Body Mass Index 27.3 Const General: cooperative, healthy appearing, no acute distress and well developed Orientation/consciousness: patient oriented x3 HEENT Head: Yes normal to inspection Ears: hearing grossly normal bilaterally General nose exam: Normal external nose present Face and sinus: Yes normal facial exam Mouth: Normal oral and palatal mucosa present Eyes General: appearance normal, both eyes and all related structures Pupils: Equal, round and reactive pupils present EOM: EOMs intact bilaterally Resp Effort & Inspection: normal respiratory effort and no respiratory distress Auscultation: clear to auscultation bilaterally Cardio Rate: regular rate Rhythm: regular rhythm Heart sounds: no gallops, no murmurs and no rubs Peripheral pulses: Peripheral pulses 2+ throughout GI Inspection: No distended Palpation (GI): Soft to palpation and nontender Auscultation: normal bowel sounds Skin General skin exam: no rashes or lesions noted Neuro General: patient oriented x3 Cranial nerves: Yes CN's II-XII intact bilaterally and Yes Equal, round and reactive pupils present Gait exam (Neuro): Normal gait present Motor exam (neuro): 5/5 motor strength present throughout Extrem Other: Chronic deformity of the right foot with tenderness to palpation of the base of the 5th metatarsal. Mild tenderness of the Achilles tendon. No edema or ecchymosis. No signs of injury. General: Yes full ROM and Yes no clubbing, cyanosis or edema Psych Appearance: grossly normal Mental Status: mental status grossly normal Assessment & Plan Assessment & Plan (1) Right foot pain: Code(s): M79.671 - Pain in right foot Plan Patient presented to the office with the atraumatic acute on chronic right foot pain x3 days. On physical examination, patient has tenderness to palpation of the 5th metatarsal. Differential diagnosis includes fracture versus sprain/strain versus tendinitis. X-ray of the right foot obtained. Otherwise, recommend rest/activity modification, ice to the area, and elevation of the extremity. Continue with acetaminophen/ibuprofen for pain management as long as patient has no medical contraindications. 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 We will call patient with the results of the x-ray. Patient otherwise stable and safe for discharge home. He was advised to return here or go to the emergency room for worsening/persistent symptoms. Patient verbalizes understanding and he is in agreement with the plan. Orders: Orders XR ankle RT 2V Today M79.671 - Pain in right foot XR foot RT 2V Today M79.671 - Pain in right foot Coding Level of Care Code Est Pt Level 3 (71407) Diagnoses Right foot pain M79.671
[2023-01-17 08:07] VITALS: BP 110/60; PULSE 52; TEMP 36.8; O2SAT 97; BMI 27.3
== END 2023-01-17 08:59 | disposition home or self-care (01) ==
PROVIDERS: PCP Internal Medicine; Visit Provider Physician Assistant Medical
DX: M79.671 Pain in right foot (principal)
CPT/HCPCS: 99213

== ENCOUNTER 2023-01-17 08:20 | Outpatient (REF) | payer MEDICARE, SELFPAY ==
--- NOTE | ~2023-01-17 | XR_ITS ---
EXAMINATION: Right foot and ankle x-ray CLINICAL INFORMATION: Pain COMPARISON: None. TECHNIQUE: 3 views of the right foot and 3 views of the right ankle FINDINGS: Right foot: There is pes planus deformity. There is severe arthritis of the midfoot at the metatarsal cuneiform and navicular cuneiform joints with joint space narrowing osteophyte formation and cystic or erosive changes. There is mild arthritis at the first MTP joint with joint space narrowing and osteophyte formation. The bones are osteopenic. Small calcaneal spurs. Normal soft tissues. Right ankle: Bone alignment is normal. No fracture or dislocation. The ankle mortise is normal. The soft tissues are normal. 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 Calcaneal spurs.
--- NOTE | ~2023-01-17 | XR_ITS ---
EXAMINATION: Right foot and ankle x-ray CLINICAL INFORMATION: Pain COMPARISON: None. TECHNIQUE: 3 views of the right foot and 3 views of the right ankle FINDINGS: Right foot: There is pes planus deformity. There is severe arthritis of the midfoot at the metatarsal cuneiform and navicular cuneiform joints with joint space narrowing osteophyte formation and cystic or erosive changes. There is mild arthritis at the first MTP joint with joint space narrowing and osteophyte formation. The bones are osteopenic. Small calcaneal spurs. Normal soft tissues. Right ankle: Bone alignment is normal. No fracture or dislocation. The ankle mortise is normal. The soft tissues are normal. 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 Calcaneal spurs.
== END 2023-01-17 08:21 | disposition home or self-care (01) ==
LOC: HO.HMGCX 08:20
PROVIDERS: PCP Internal Medicine; Visit Provider Physician Assistant Medical
DX: M79.671 Pain in right foot (principal)
CPT/HCPCS: 73600; 73620

== ENCOUNTER 2023-02-04 08:46 | Outpatient (AMB) | payer MEDICARE, SELFPAY ==
[2023-02-04 08:53] VITALS: BP 122/70; PULSE 46; BMI 26.7
--- NOTE | 2023-02-04 08:53 | A.OFFVIS_ITS ---
Intake Vital Signs 02/04/23 08:53 Height 5 ft 6 in Weight 165 lb 5.547 oz BMI 26.7 BP 122/70 Blood Pressure Location Lt brachial Position Sitting Pulse 46 L Intake Visit Reasons: 6 mth f/up Intake Note: 6 month follow-up with ekg feeling good System Engineer Required: No Allergies amoxicillin [Augmentin] Allergy (Unknown, Verified 01/17/23 08:11) Unknown clavulanic acid [Augmentin] Allergy (Unknown, Verified 01/17/23 08:11) unknown raw cherries Allergy (Severe, Uncoded 09/05/22 10:10) anaphylaxis flores Allergy (Unknown, Uncoded 09/05/22 10:10) anaphalyxis Medication List - Last Reconciled 02/04/23 by Ricky Macias MD amiodarone Take a half of the 200 mg tablet to equal 100 mg on -- and take a full tablet to equal 200 mg daily on G-[id number] 90 days amlodipine 10 mg PO DAILY apixaban (Eliquis) 5 mg PO BID atorvastatin 20 mg PO BEDTIME finasteride 5 mg PO DAILY omeprazole 20 mg PO DAILY tadalafil 5 mg PO DAILY 90 days tamsulosin (Flomax) 0.4 mg PO BEDTIME HPI HPI Comments History of Present Illness Details Dima comes for follow-up. He has been doing well from cardiac perspective. He noticed that heart rate sometimes in the 40s and with exercise while playing golf or even doing his routine walking his heart rate only goes up to 60. He has our continuing to be able to maintain his activity level. He does complain of some fatigue and shortness of breath although these are not life-limiting to him at this point time. He denies lightheadedness or syncope. He has not had any rapid or irregular heartbeat. He denies any worsening heart failure symptoms of orthopnea, PND, leg edema. Takes all his medications. He says blood pressure is currently well controlled on amlodipine therapy. He denies any bleeding issues or neurologic events. He complains of increasing acid reflux related symptoms and has changed his lifestyle and diet as well as taking his omeprazole at nighttime. [facility] Medical History (Updated 02/04/23 @ 09:36 by Ricky Macias MD) Diastolic dysfunction Retention of urine Angioedema Acute bacterial prostatitis Prostatitis Hearing aid worn Atrial fibrillation Pulmonary nodules Hyperkalemia Overweight (BMI 25.0-29.9) Vitamin D deficiency Vitamin B12 deficiency Chronic kidney disease, stage II (mild) Chronic gastritis without bleeding Sinus bradycardia Right bundle branch block (RBBB) determined by electrocardiography Hyperlipidemia HTN (hypertension) History of cardiomyopathy History of congestive heart failure Paroxysmal atrial fibrillation CAD (coronary artery disease) On amiodarone therapy Surgical History Hx of ventral hernia repair Hx of hand surgery History of prostate surgery Hx of colostomy History of colon resection Hx of knee surgery Hx of colonoscopy Hx of endoscopy History of radiofrequency ablation procedure for cardiac arrhythmia History of cardioversion Family History Father No problems noted. Mother CVD (cardiovascular disease) CHF (congestive heart failure) Social History Household Members: Spouse Housing: House Do you presently have visiting nurse or other home services: Yes Alcohol intake: current Alcohol intake frequency: holidays/special occasions only Alcohol type: wine Patient Tobacco Use Status: Never used Tobacco e-Cigarette/Vaping Use: Never Used Second Hand Smoke Exposure: No service: Yes Current occupational status: retired Cognitive needs: No Hearing needs: Yes Vision needs: Yes Review of Systems Const Denies chills, Denies fatigue, Denies fever(s), Denies frequent falls, Denies weakness, Denies weight gain and Denies weight loss ENT Denies dizziness Card Denies chest pain, Denies leg edema, Denies lightheadedness, Denies palpitati ons, Denies dyspnea, Denies dyspnea on exertion, Denies orthopnea and Denies other (loss of consciousness) Resp Denies cough, Denies dyspnea and Denies dyspnea on exertion GI Denies hematochezia and Denies change in stool character Musc Denies abnormal gait, Denies muscle weakness, Denies numbness, Denies radiating pain into limb and Denies tingling Neuro Denies abnormal gait, Denies dizziness, Denies frequent falls, Denies numbness, Denies tingling and Denies weakness Endo Denies fatigue and Denies palpitations Physical Exam Vital Signs: Last Vital Signs Pulse 46 L 02/04/23 08:53 BP 122/70 02/04/23 08:53 BMI result Body Mass Index 26.7 Const General: cooperative, comfortable, no acute distress, alert and awake Nutritional Appearance: overweight Orientation/consciousness: patient oriented x3 Limitations: no limitations Neck Neck: Yes trachea midline, Yes supple and Yes no JVD Resp Effort & Inspection: normal respiratory effort Auscultation: clear to auscultation bilaterally Cardio Jugular venous distension: no JVD Palpation: normal PMI Rate: regular rate Rhythm: regular rhythm Heart sounds: S1 normal heart sound present, S2 normal heart sound present, no click, no gallops, no murmurs and Other heart sounds present (S4 present) GI Auscultation: normal bowel sounds Skin General skin exam: no rashes or lesions noted Neuro General: patient oriented x3 and no focal motor deficits Extrem General: Yes no clubbing, cyanosis or edema Office Procedures EKG Details: EKG shows sinus bradycardia 46 beats per minute first-degree AV block with right bundle-branch block, unchanged with QT interval of 520 milliseconds with QRS duration 172 milliseconds [id number], Complete Assessment & Plan Assessment & Plan (1) Sinus bradycardia: Code(s): R00.1 - Bradycardia, unspecified Plan: Patient with sinus bradycardia is suggestive of sinus node dysfunction. This exacerbated by amiodarone therapy. He has tachy-sudhir syndrome. We discussed about management with the pacemaker to improve bradycardia although he has no limitations current lifestyle and has no other symptoms that would necessitate pacemaker at current time. He does notice mild fatigue and shortness of breath although he said he is able to tolerate this. Advised to call me with worsening symptoms that may benefit with pacing therapy. Risks and benefits were discussed. He understands and agrees. (2) Paroxysmal atrial fibrillation: Comment: Myocardial perfusion study done on 06/13/2020 came out normal Echocardiogram done in April 2020 also came out normal, with normal left ventricular systolic function and ejection fraction estimated between 65-70%. 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 and this will be monitored closely Code(s): I48.0 - Paroxysmal atrial fibrillation Plan: Paroxysmal atrial fibrillation which has been difficult control and has required amiodarone therapy. Reduction amiodarone has led to recurrent atrial flutter/tachycardia and has led to recurrent heart failure syndrome. We discussed about amiodarone therapy and he is currently taking amiodarone 100 mg 3 times a week and alternating with 200 mg 4 times a week. He has done well. Annual check for amiodarone toxicity should be pursued. Continue full oral anticoagulation, currently on Eliquis 5 mg b.i.d. which she is tolerating well. No overt bleeding issues. (3) Thoracic aortic aneurysm: Code(s): I71.20 - Thoracic aortic aneurysm, without rupture, unspecified Plan: Thoracic aortic aneurysm which has remained stable. Follow up with echocardiogram in 5 months time. Blood pressure is currently well optimized continue the same. Target goal blood pressure less than 130/84. Advised to avoid sudden isometric exercise. No surgical interventions required at this point in time. (4) History of cardiomyopathy: Code(s): Z86.79 - Personal history of other diseases of the circulatory system Plan: Prior history of cardiomyopathy in the setting of atrial fibrillation. Has preserved LV systolic function since maintaining rhythm for the long-term. Has done very well with the same. No signs or symptoms of heart failure at this point time. Continue aggressive blood pressure control. Continue rhythm control approach as above. Signs and symptoms of heart failure were discussed. Continue maintain active lifestyle as tolerated. Follow up in the clinic in 6 months time, sooner p.r.n.. Thank you for allowing me to partake in his care Orders: Orders Basic Metabolic Panel Today I48.0 - Paroxysmal atrial fibrillation CA echo transthoracic complete 5 Months I71.20 - Thoracic aortic aneurysm, without rupture, unspecified TSH reflex Free T4 Today I48.0 - Paroxysmal atrial fibrillation Liver Panel Today I48.0 - Paroxysmal atrial fibrillation XR chest 2V Today I48.0 - Paroxysmal atrial fibrillation B Type Natriuretic Peptide Today I48.0 - Paroxysmal atrial fibrillation Magnesium Today I48.0 - Paroxysmal atrial fibrillation, I50.30 - Unspecified diastolic (congestive) heart failure Medications: Changed From finasteride 5 mg PO DAILY 90 days 90 tabs 2RF To finasteride 5 mg PO DAILY Coding Level of Care Code Est Pt Level 4 (62610) Diagnoses Sinus bradycardia R00.1 Paroxysmal atrial fibrillation I48.0 Thoracic aortic aneurysm I71.20 History of cardiomyopathy Z86.79 CPT Codes EKG - CPT: [id number], Complete ([id number])
== END 2023-02-04 09:23 | disposition home or self-care (01) ==
PROVIDERS: PCP Internal Medicine; Referring Provider Internal Medicine; Visit Provider Internal Medicine Cardiovascular Disease
DX: R00.1 Bradycardia, unspecified (principal); I48.0 Paroxysmal atrial fibrillation; I71.20 Thoracic aortic aneurysm, without rupture, unspecified; Z86.79 Personal history of other diseases of the circulatory system
CPT/HCPCS: 93010; 99214

== ENCOUNTER → 2023-02-04 08:46 | Outpatient (BNVA) | payer MEDICARE, SELFPAY | PROVIDERS: PCP Internal Medicine; Referring Provider Internal Medicine; Visit Provider Internal Medicine Cardiovascular Disease | DX: I48.0 Paroxysmal atrial fibrillation (principal); R00.1 Bradycardia, unspecified; I71.20 Thoracic aortic aneurysm, without rupture, unspecified; Z86.79 Personal history of other diseases of the circulatory system; Z79.01 Long term (current) use of anticoagulants; Z79.899 Other long term (current) drug therapy | CPT/HCPCS: 93005; 99212 ==

== ENCOUNTER 2023-02-06 07:57 | Outpatient (REF) | payer MEDICARE, SELFPAY ==
--- NOTE | ~2023-02-06 | XR_ITS ---
EXAMINATION: XR CHEST CLINICAL INFORMATION: Atrial fibrillation. COMPARISON: 02/01/2022. TECHNIQUE: 2 views of the chest were obtained. FINDINGS: No acute finding. Some likely chronic lung markings. No failure or infiltrate. No effusion. The cardiac silhouette is comparable. Mildly tortuous versus ectatic aorta. Degenerative changes in the thoracic spine without acute compression injury. XR/XR chest 2V IMPRESSION: No acute finding.
[2023-02-06 08:22] LABS: MANUAL DIFF FLAG NO
[2023-02-06 08:47] LABS: Basophils Percent Auto 0.7 % (0-2); Eosinophils Absolute Auto 0.2 X10*3/uL (0.0-0.4); Eosinophils Percent Auto 3.2 % (0-4); Hematocrit 44.5 % (42.0-52.0); Hemoglobin 14.6 g/dl (14.0-18.0); Imm Gran Abs Auto 0.02 X10*3/uL (0.00-0.03); Imm Gran Pct Auto 0.3 % (0.0-0.4); Lymphocytes Absolute Auto 1.4 X10*3/uL (1.2-4.9); Lymphocytes Percent Auto 24.2 % (20-40); Mean Corpuscular HGB Conc 32.8 g/dl (31.0-36.0); Mean Corpuscular Volume 97.6 fL (80.0-98.0); Monocytes Absolute Auto 0.4 X10*3/uL (0.1-1.2); Monocytes Percent Auto 7.2 % (2-11); Neutrophils Absolute Auto 3.8 x10*3/uL (2.0-8.3); Neutrophils Percent Auto 64.4 % (45-73); Platelet Count 248 X10*3/uL (160-400); Red Blood Count 4.56 X10*6/uL (4.60-5.80); Red Cell Distribution Width 16.3 % (11.0-16.0)
[2023-02-06 09:07] LABS: B Type Natriuretic Peptide 64 pg/mL (<100)
[2023-02-06 10:02] LABS: Alanine Aminotransferase 14 U/L (0-40); Albumin Level 4.2 g/dL (3.5-5.0); Alkaline Phosphatase 65 U/L (39-117); Anion Gap 13 (12-20); Aspartate Amino Transferase 24 U/L (5-37); Bilirubin Direct 0.2 mg/dL (0.0-0.5); Bilirubin Total 0.5 mg/dL (0.0-1.0); Blood Urea Nitrogen 21 mg/dL (9-16); Calcium 9.7 mg/dL (8.4-10.2); Carbon Dioxide 28 mmol/L (22-29); Chloride 106 mmol/L (96-108); Cholesterol 211 mg/dL (<200); Estimated Glomerular Filt Rate 54; Glucose Fasting 97 mg/dL (60-99); Glucose Random 96 mg/dL (60-115); HDL Cholesterol 85 mg/dL (>40); LDL Cholesterol Calculated 108 mg/dL (<100); Magnesium 2.4 mg/dL (1.6-2.6); Potassium 4.8 mmol/L (3.3-5.1); Sodium 142 mmol/L (135-145); Total Protein 7.2 g/dL (6.5-8.0); Triglycerides 94 mg/dL (<150)
[2023-02-06 10:04] LABS: TSH reflex Free T4 57.69 uIU/mL (0.32-4.0)
[2023-02-06 10:17] LABS: TSH reflex Free T4 55.28 uIU/mL (0.32-4.0); Vitamin D 25-OH Total 33.1 ng/mL (>30)
[2023-02-06 10:34] LABS: Free T4 (Free Thyroxine) 0.49 ng/dL (0.71-1.85)
[2023-02-06 10:41] LABS: Appearance Urine Clear; Color Urine Yellow; Glucose Urine UA Negative (Negative); Leukocyte Esterase Urine Negative (Negative); Nitrite Urine Negative (Negative); PH 6.5 (5.0-9.0); Specific Gravity - Urine 1.015 (1.005-1.025); Urine Blood Negative (Negative); Urine Ketones Negative (Negative); Urine Protein Negative (Neg-Trace)
== END 2023-02-06 07:58 | disposition home or self-care (01) ==
LOC: HO.XRAY 07:57
PROVIDERS: Absent Provider Internal Medicine Cardiovascular Disease; PCP Internal Medicine; Visit Provider Internal Medicine
DX: Z12.5 Encounter for screening for malignant neoplasm of prostate (principal); I48.0 Paroxysmal atrial fibrillation; I11.0 Hypertensive heart disease with heart failure; I50.30 Unspecified diastolic (congestive) heart failure; E78.00 Pure hypercholesterolemia, unspecified; N40.0 Benign prostatic hyperplasia without lower urinary tract symptoms; N13.8 Other obstructive and reflux uropathy; E55.9 Vitamin D deficiency, unspecified; R79.89 Other specified abnormal findings of blood chemistry
CPT/HCPCS: 36415; 71046; 80048; 80053; 80061; 80076; 81003; 82248; 82306; 83735; 83880; 84153; 84439; 84443; 85025

== ENCOUNTER 2023-02-27 08:53 | Outpatient (AMB) | payer MEDICARE, SELFPAY ==
--- NOTE | 2023-02-27 09:13 | MHC.OFFVIS ---
Intake Intake Visit Reasons: 6m/PVR(BPH/Prostatitis) Intake Note: pt here for followup on PSA meds- finasteride, tamsulosin blood thinner- no pharmacy - big y PVR - 16 mL Allergies amoxicillin [Augmentin] Allergy (Unknown, Verified 02/27/23 09:18) Unknown clavulanic acid [Augmentin] Allergy (Unknown, Verified 02/27/23 09:18) unknown raw cherries Allergy (Severe, Uncoded 02/27/23 09:18) anaphylaxis flores Allergy (Unknown, Uncoded 02/27/23 09:18) anaphalyxis HPI HPI Comments History of Present Illness Details Efrain Reece is a very pleasant male. He is seen for the following urologic conditions - recurrent prostatitis - lower urinary tract symptoms - erectile dysfunction PVR 15 cc Significant improvement with combination medication Continues with finasteride to Friday, Friday, Friday Minimal benefit from daily tadalafil Dizziness with alfuzosin so has remained on tamsulosin [facility] 2021 had episode of prostatitis with 300 cc retention Does have mild hypospadias Recurrent prostatitis Seen in hospital in November for episode of prostatitis On those occasions he has become septic quickly with minimal prodrome BPH longstanding Prior TURP with Dr. Turcios when aged approximately 67 Current therapy combination Lower urinary tract symptoms Improvement on combination therapy - finasteride with tamsulosin Still with occasional nocturia Prior traumatic office cystoscopies PSA 06/17 1.99, 02/15 1.0 Erectile dysfunction Declining response to 50 mg sildenafil Increased to 100mg Trial daily tadalafil 5 mg - ineffective PFSH Medical History Diastolic dysfunction Retention of urine Angioedema Acute bacterial prostatitis Prostatitis Hearing aid worn Atrial fibrillation Pulmonary nodules Hyperkalemia Overweight (BMI 25.0-29.9) Vitamin D deficiency Vitamin B12 deficiency Chronic kidney disease, stage II (mild) Chronic gastritis without bleeding Sinus bradycardia Right bundle branch block (RBBB) determined by electrocardiography Hyperlipidemia HTN (hypertension) History of cardiomyopathy History of congestive heart failure Paroxysmal atrial fibrillation CAD (coronary artery disease) On amiodarone therapy Surgical History Hx of ventral hernia repair Hx of hand surgery History of prostate surgery Hx of colostomy History of colon resection Hx of knee surgery Hx of colonoscopy Hx of endoscopy History of radiofrequency ablation procedure for cardiac arrhythmia History of cardioversion Family History Father No problems noted. Mother CVD (cardiovascular disease) CHF (congestive heart failure) Social History Household Members: Spouse Housing: House Do you presently have visiting nurse or other home services: Yes Alcohol intake: current Alcohol intake frequency: holidays/special occasions only Alcohol type: wine Patient Tobacco Use Status: Never used Tobacco e-Cigarette/Vaping Use: Never Used Second Hand Smoke Exposure: No service: Yes Current occupational status: retired Cognitive needs: No Hearing needs: Yes Vision needs: Yes Office Procedures Post Void Residual Post Residual Void Post Void Residual (PVR): 16 [id number] Void Residual by ultrasound Results AMB Urinalysis, Automated UA Leukoctes 0 Tsering/uL Last Edit by FRANCISCO Burgess on 02/27/23 09:15 UA Nitrite Negative Last Edit by FRANCISCO Burgess on 02/27/23 09:15 UA Urobilinogen 0.2 mg/dL Last Edit by FRANCISCO Burgess on 02/27/23 09:15 UA Protein 0 mg/dL Last Edit by FRANCISCO Burgess on 02/27/23 09:15 UA pH 6.0 Last Edit by FRANCISCO Burgess on 02/27/23 09:15 UA Blood 0 Nixon/uL Last Edit by FRANCISCO Burgess on 02/27/23 09:15 UA Specific [place] 1.015 Last Edit by FRANCISCO Burgess on 02/27/23 09:15 UA Ketone Negative Last Edit by FRANCISCO Burgess on 02/27/23 09:15 UA Bilirubin 1 mg/dL Last Edit by FRANCISCO Burgess on 02/27/23 09:15 UA Glucose 0 mg/dL Last Edit by FRANCISCO Burgess on 02/27/23 09:15 Results Reviewed Results Reviewed: Laboratory Last Values Urine pH (Auto) 6.0 02/27/23 09:13 Specific [place] (Auto) 1.015 02/27/23 09:13 Urine Protein (Auto) 0 mg/dL 02/27/23 09:13 Glucose (UA)(Auto) 0 mg/dL 02/27/23 09:13 Urine Ketones (Auto) Negative 02/27/23 09:13 Urine Blood (Auto) 0 Nixon/uL 02/27/23 09:13 Urine Nitrite (Auto) Negative 02/27/23 09:13 Urine Bilirubin (Auto) 1 mg/dL 02/27/23 09:13 Urine Urobilinogen (Auto) 0.2 mg/dL 02/27/23 09:13 Leukocyte Esterase (Auto) 0 Tsering/uL 02/27/23 09:13 Assessment & Plan Assessment & Plan (1) BPH w urinary obs/LUTS: Code(s): N40.1 - Benign prostatic hyperplasia with lower urinary tract symptoms; N13.8 - Other obstructive and reflux uropathy (2) Erectile dysfunction: Code(s): N52.9 - Male erectile dysfunction, unspecified Qualifiers: Erectile dysfunction type: vasculogenic Vasculogenic erectile dysfunction type: due to arterial insufficiency Qualified Code(s): N52.01 - Erectile dysfunction due to arterial insufficiency (3) Prostatitis: Code(s): N41.9 - Inflammatory disease of prostate, unspecified Qualifiers: Prostatitis type: unspecified Qualified Code(s): N41.9 - Inflammatory disease of prostate, unspecified Plan 6 month follow-up Orders: Orders AMB Urinalysis Automated Today Z13.9 - Encounter for screening, unspecified AMB Post Void Residual by ultrasound Today N39.8 - Other specified disorders of urinary system Patient Instructions: Imaging studies, laboratory and physical exam results were discussed and reviewed in detail. No major barriers to patient understanding were identified. An opportunity to ask questions regarding the treatment plan was provided. All questions were answered. The patient expressed understanding and agreement with the above treatment plan. The patient is aware they should contact our office by phone for worsening of their current condition or the appearance of new urologic symptoms. Compliance is encouraged with any medications and followup testing that is ordered. It is a privilege to participate in the urologic care of your patient. If you have any questions or concerns regarding treatment for the above conditions, or other urologic issues, please do not hesitate to contact me. The office telephone contact is [phone]. This note is constructed using voice recognition software. While every effort has been made to ensure accuracy merchandise buyer errors may have been included. Yours sincerely, Dr Jeff Hdz MD, [facility] - Urology Providers of Expert, Compassionate Care for the Genitourinary System Coding Level of Care Code Est Pt Level 3 (42928) Diagnoses BPH w urinary obs/LUTS N40.1; N13.8 Erectile dysfunction due to arterial insufficiency N52.01 Erectile dysfunction type: vasculogenic Vasculogenic erectile dysfunction type: due to arterial insufficiency Prostatitis, unspecified prostatitis type N41.9 Prostatitis type: unspecified CPT Codes Post Residual Void - PVR CPT Code: 14321-Iieh Void Residual by ultrasound ([id number])
== END 2023-02-27 10:08 | disposition home or self-care (01) ==
PROVIDERS: PCP Internal Medicine; Visit Provider Urology
DX: N40.1 Benign prostatic hyperplasia with lower urinary tract symptoms (principal); N13.8 Other obstructive and reflux uropathy; N52.01 Erectile dysfunction due to arterial insufficiency; N41.9 Inflammatory disease of prostate, unspecified; Z13.9 Encounter for screening, unspecified
CPT/HCPCS: 99213

== ENCOUNTER → 2023-02-27 08:53 | Outpatient (BNVA) | payer MEDICARE, SELFPAY | PROVIDERS: Visit Provider Urology | DX: N40.1 Benign prostatic hyperplasia with lower urinary tract symptoms (principal); N13.8 Other obstructive and reflux uropathy; N41.9 Inflammatory disease of prostate, unspecified; N52.01 Erectile dysfunction due to arterial insufficiency | CPT/HCPCS: 51798; 81003; 99212 ==

== ENCOUNTER 2023-03-11 10:31 | Outpatient (AMB) | payer MEDICARE, SELFPAY ==
[2023-03-11 10:33] VITALS: BP 138/70; PULSE 49; O2SAT 98; BMI 26.7
--- NOTE | 2023-03-11 10:33 | MHC.PC.OV ---
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 Accompanied by: Self / Same As Patient Allergies amoxicillin [Augmentin] Allergy (Unknown, Verified 03/11/23 11:10) Unknown clavulanic acid [Augmentin] Allergy (Unknown, Verified 03/11/23 11:10) unknown raw cherries Allergy (Severe, Uncoded 03/11/23 11:10) anaphylaxis flores Allergy (Unknown, Uncoded 03/11/23 11:10) anaphalyxis Medication List - Last Reconciled 03/11/23 by Prem Green MD amiodarone Take a half of the 200 mg tablet to equal 100 mg on and take a full tablet to equal 200 mg daily on [id number] 90 days amlodipine 10 mg PO DAILY apixaban (Eliquis) 5 mg PO BID atorvastatin 20 mg PO BEDTIME finasteride 5 mg PO DAILY levothyroxine (Synthroid) 50 mcg PO DAILY omeprazole 20 mg PO DAILY tadalafil 5 mg PO DAILY 90 days tamsulosin (Flomax) 0.4 mg PO BEDTIME Tobacco use date assessed: 03/11/23 Fall risk assessment: No Falls in past year Last assessed Fall Risk: 03/11/23 Dental Screening Dental Screen Date: 03/11/23 Did you have a dental visit in the last 12 months?: Yes Did you have a dental problem in the last 6 months where you did not have access to dental care?: No Was dental information given to patient?: Patient has dentist HPI HTN, hyperlipidemia, PAF, CAD HPI Details Patient comes in today for his follow up visit States that he is currently feeling a lot better and that his heart rate seems to be getting back to his baseline/normal He was found to be hypothyroid with his TSH level >40 when he went for his yearly labs last month Relates that he was experiencing increased fatigue sometime back in the spring and he could not quite figure then what was wrong with him He also noted that he was very bradycardic back then and when he was seen by cardiology recently, was being advised that he may be needing a pacemaker at some point soon He was started on oral thyroid hormone replacement last month on 02/19/23 and will be getting his thyroid hormone level rechecked again in about 3 weeks He denies any headaches or dizziness Denies any chest pains, no SOB No nausea/vomiting, no abdominal pain No change in bowel habits noted He had his follow up labs done last month but also had his mandatory [facility] (brought in copy of these results) within a few days of his other labs - to discuss his results [facility] Medical History (Updated 03/11/23 @ 12:35 by Prem Green MD) Acquired hypothyroidism Diastolic dysfunction Retention of urine Angioedema Acute bacterial prostatitis Prostatitis Hearing aid worn Atrial fibrillation Pulmonary nodules Hyperkalemia Overweight (BMI 25.0-29.9) Vitamin D deficiency Vitamin B12 deficiency Chronic kidney disease, stage II (mild) Chronic gastritis without bleeding Sinus bradycardia Right bundle branch block (RBBB) determined by electrocardiography Hyperlipidemia HTN (hypertension) History of cardiomyopathy History of congestive heart failure Paroxysmal atrial fibrillation CAD (coronary artery disease) On amiodarone therapy Surgical History Hx of ventral hernia repair Hx of hand surgery History of prostate surgery Hx of colostomy History of colon resection Hx of knee surgery Hx of colonoscopy Hx of endoscopy History of radiofrequency ablation procedure for cardiac arrhythmia History of cardioversion Family History Father No problems noted. Mother CVD (cardiovascular disease) CHF (congestive heart failure) Social History Household Members: Spouse Housing: House Do you presently have visiting nurse or other home services: Yes Alcohol intake: current Alcohol intake frequency: holidays/special occasions only Alcohol type: wine Patient Tobacco Use Status: Never used Tobacco e-Cigarette/Vaping Use: Never Used Second Hand Smoke Exposure: No service: Yes Current occupational status: retired Cognitive needs: No Hearing needs: Yes Vision needs: Yes Questionnaire PHQ-9 Over the last 2 weeks, how often have you been bothered by any of the following problems? 1. Little interest or pleasure in doing things: not at all 2. Feeling down, depressed, or hopeless: not at all 3. Trouble falling or staying asleep, or sleeping too much: several days 4. Feeling tired or having little energy: not at all 5. Poor appetite or overeating: not at all 6. Feeling bad about yourself - or that you are a failure or have let yourself or your family down: not at all 7. Trouble concentrating on things, such as reading the newspaper or watching television: not at all 8. Moving or speaking so slowly that other people could have noticed. Or the opposite - being so fidgety or restless that you have been moving around a lot more than usual: not at all 9. Thoughts that you would be better off or of hurting yourself in some way: not at all Total score: 1 Depression Screening Interpretation: Negative Depression Screening Done: Yes 56421 - PHQ-9 Billing: Yes Source: Developed by Drs. Lalo Trevino, Rosalina Faith, Tong Eaton and colleagues, with an educational mariah from [employer] Thrive Questionnaire Date Thrive assessed: 03/11/23 I am a: Patient What is your living situation today?: I have a steady place to live Within the past 12 months, did the food you bought not last and you didn't have the money to get more?: Never true Within the past 12 months, did you worry whether your food would run out before you got money to buy more?: Never true Do you have trouble paying for medicines?: No Do you have trouble getting transportation to medical appointments?: No Do you have trouble paying your heating and electricity bill?: No Do you have trouble taking care of your child, family member or friend?: No Do you have trouble with day-to-day activities such as bathing, preparing meals, shopping, managing finances, etc.?: No Are you currently unemployed and looking for a job?: No Are you interested in more education?: No Please select the resources that you would like help with: None Currently or been in a relationship where the following occur: no concerns reported AUDIT C Alcohol Use Questionnaire (AUDIT-C) 1. How often do you have a drink containing alcohol?: Monthly or less 2. How many drinks containing alcohol do you have on a typical day when you are drinking?: 1 or 2 3. How often do you have six or more drinks on one occasion?: Never Total Score: 1 Score Reviewed/Action Taken: Yes KENNY-7 AMB Questionnaire KENNY-7 Date KENNY - 7 assessed: 03/11/23 Feeling nervous, anxious, or on edge: 0 = Not at all Not being able to stop or control worryin = Not at all Worrying too much about different things: 0 = Not at all Trouble relaxin = Several days Being so restless that it is hard to sit still: 0 = Not at all Becoming easily annoyed or irritable: 0 = Not at all Feeling afraid as if something awful might happen: 0 = Not at all Total KENNY-7 score (0-4 normal; 5-9 mild; 10-14 moderate; 15-21 severe): 1 Source: Developed by Drs. Lalo Trevino, Rosalina Faith, Tong Eaton and colleagues, with an educational mariah from [employer] Review of Systems Const Denies chills, Reports fatigue (improving), Denies fever(s) and Denies headache(s) ENT Denies dysphagia, Denies dizziness, Denies otalgia, Denies headache(s), Reports neck pain, Denies odynophagia and Denies sore throat Card Denies chest pain, Denies palpitations, Denies dyspnea and Reports slow heart rate Resp Denies cough and Denies dyspnea GI Denies abdominal pain, Denies constipation, Denies dysphagia, Denies heartburn, Denies diarrhea, Denies nausea, Denies odynophagia and Denies vomiting Denies dysuria, Denies nocturia and Denies urinary frequency Musc Reports neck pain and Reports stiffness Neuro Denies dizziness and Denies headache(s) Endo Reports fatigue (improving) and Denies palpitations Physical exam (Primary Care) Vital Signs: Last Vital Signs Pulse 49 L 03/11/23 10:33 BP 138/70 03/11/23 10:33 Pulse Ox 98 03/11/23 10:33 Oxygen Delivery Method Room Air 03/11/23 10:33 BMI result Body Mass Index 26.7 Tobacco/Smoking Status: Tobacco use Status Tobacco use date assessed 03/11/23 03/11/23 10:35 Patient Tobacco Use Status Never used Tobacco 03/11/23 10:35 e-Cigarette/Vaping Use Never Used 03/11/23 10:35 PHQ-9: PHQ-9 Score PHQ-9: Total score 1 03/11/23 10:43 Depression Screening Interpretation: Negative Thrive Assessment: Date of Thrive Assessment Date Thrive assessed 03/11/23 03/11/23 10:35 Currently or been in a relationship where the following occur: no concerns reported Const General: no acute distress and alert HENMT Ears: TM's normal bilaterally and EAC's normal Throat: Yes posterior oropharynx normal and Yes tonsils normal (no TP congestion noted) Neck Neck: Yes no lymphadenopathy and Yes tender Resp Auscultation: clear to auscultation bilaterally, no rales and no wheezes Cardio Rate: bradycardic Rhythm: regular rhythm Heart sounds: no murmurs GI Palpation (GI): Soft to palpation and nontender Auscultation: normal bowel sounds Back/Spine/Pelvis Cervical Spine: cervical muscular tenderness and Cervical spine tenderness Thoracic/Lumbar Spine: lumbar spinal tenderness Extrem General: Yes no clubbing, cyanosis or edema Results Reviewed Results Reviewed: Laboratory Tests 02/06/23 02/06/23 02/06/23 08:18 08:18 08:20 WBC 6.0 Hgb 14.6 Hct 44.5 Plt Count 248 Sodium 142 Potassium 4.8 Creatinine 1.27 Estimated GFR 54 Fasting Glucose 97 Calcium 9.7 Magnesium 2.4 AST 24 ALT 14 B-Natriuretic Peptide 64 Triglycerides 94 Cholesterol 211 H LDL Cholesterol, Calc 108 H HDL Cholesterol 85 Prostate Specific Ag 1.00 25-OH Vitamin D Total 33.1 TSH 55.28 H Free T4 0.49 L Ur Specific [place] 1.015 Urine Protein Negative Urine Glucose (UA) Negative Urine Blood Negative Assessment and Plan Assessment & Plan (1) Acquired hypothyroidism: Code(s): E03.9 - Hypothyroidism, unspecified 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 He started taking his Levothyroxine 50 mcg QD on 02/19/23 and states that he has been feeling a lot better since and his heart rate is starting to slowly increase Will need to recheck his TFTs in 6 weeks' time - labs are ordered for 04/02/23 and can be done on or after that date Advised that any further adjustments to his Levothyroxine dosage needed will depend on how his TFTs come out (2) Paroxysmal atrial fibrillation: Comment: Myocardial perfusion study done on 06/13/2020 came out normal Echocardiogram done in April 2020 also came out normal, with normal left ventricular systolic function and ejection fraction estimated between 65-70%. 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 and this will be monitored closely Code(s): I48.0 - Paroxysmal atrial fibrillation Plan: Patient currently remains in sinus rhythm Continue Eliquis 5 mg BID for thromboembolism prophylaxis Continue Amiodarone at 100 mg daily on and 200 mg daily on Follow up with cardiology as scheduled States that he will be working with cardiology to try to take him off Amiodarone at some point and switch him over to ather antiarrhythmics as appropriate (3) CAD (coronary artery disease): Code(s): I25.10 - Atherosclerotic heart disease of [place] coronary artery without angina pectoris Qualifiers: Coronary Disease-Associated Artery/Lesion type: [place] artery [place] vs. transplanted heart: [place] heart Associated angina: without angina Qualified Code(s): I25.10 - Atherosclerotic heart disease of [place] coronary artery without angina pectoris Plan: Currently remains asymptomatic Follow up with cardiology as scheduled (4) HTN (hypertension): Code(s): I10 - Essential (primary) hypertension Qualifiers: Hypertension type: essential hypertension Qualified Code(s): I10 - Essential (primary) hypertension Plan: Reinforced low sodium diet - goal is systolic BP of at least 140 to 150 mm or less Continue Amlodipine 10 mg QD Patient is reminded to continue monitoring his blood pressure regularly and to call if his systolic BP stays elevated at more than 150 mm consistently (5) Hyperlipidemia: Code(s): E78.5 - Hyperlipidemia, unspecified Qualifiers: Hyperlipidemia type: mixed hyperlipidemia Qualified Code(s): E78.2 - Mixed hyperlipidemia Plan: Results of his labs done last month both here and at [facility] reviewed and discussed with patient - advised that his total and LDL cholesterol level have again increased slightly from previous but these are likely related to his recent hypothyroid state Reinforced low cholesterol diet Continue Atorvastatin 20 mg QD for now Will recheck his labs and fasting lipids in 6 months for follow-up - advised that instead of getting 2 separate sets of labs done within days of each other yearly in the fall, we will continue to have him do his labs at [facility] in the fall and will shift our follow up labs to spring time, to be done before his appt in the spring and this way, we can try to spread them out and he will be monitored more comprehensively and appropriately (6) Chronic kidney disease, stage II (mild): Code(s): N18.2 - Chronic kidney disease, stage 2 (mild) Plan: Stable - will to monitor GFR and renal function regularly (7) Neck pain: Code(s): M54.2 - Cervicalgia Plan: Cervical spine x-rays done a few months ago revealed (+) moderate hypertrophic arthropathy right C3-C4, C4-C5, C5-C6 and C6-C7 facet joints Has been referred to physical therapy for further management previously; goes to PT when his neck starts to bother him a lot (pain and stiffness) (8) Pulmonary nodules: Code(s): R91.8 - Other nonspecific abnormal finding of lung field Plan: Were seen incidentally on chest CT done a few months ago; patient is completely asymptomatic at this time Repeat chest x-rays done last month came out normal Will consider repeat CT next year for follow-up (9) Vitamin B12 deficiency: Code(s): E53.8 - Deficiency of other specified B group vitamins Plan: Corrected on his recent labs - will continue to monitor Vitamin B12 level regularly (10) Vitamin D deficiency: Code(s): E55.9 - Vitamin D deficiency, unspecified Plan: Continue Vitamin D3 1000 units QD (11) Chronic gastritis without bleeding: Comment: S/P repeat EGD and colonoscopy with Dr. Bernal in July 2018 - still has chronic active gastritis but H pylori was reportedly negative Repeat EGD in March 2022 revealed (+) Castillo's esophagitis Code(s): K29.50 - Unspecified chronic gastritis without bleeding Qualifiers: Gastritis type: unspecified gastritis Qualified Code(s): K29.50 - Unspecified chronic gastritis without bleeding Plan: Most recent EGD in March 2022 revealed (+) Castillo's esophagitis Dietary restrictions reinforced Continue Omeprazole 20 mg QD (12) BPH w urinary obs/LUTS: Code(s): N40.1 - Benign prostatic hyperplasia with lower urinary tract symptoms; N13.8 - Other obstructive and reflux uropathy Plan: Continue Tamsulosin 0.4 mg QD and Finasteride 5 mg QD Follow up with urology as scheduled PSA was at 1.00 on his labs done last month (13) Overweight (BMI 25.0-29.9): Code(s): E66.3 - Overweight Plan: Reinforced diet/exercise as tolerated/lose weight Plan Follow up in 6 months Orders: Orders Thyroid Stimulating Hormone 04/02/23 E03.9 - Hypothyroidism, unspecified Complete Blood Count Auto Diff 6 Months I10 - Essential (primary) hypertension Lipid Panel 6 Months E78.00 - Pure hypercholesterolemia, unspecified Vitamin D 25-OH Total 6 Months E55.9 - Vitamin D deficiency, unspecified UA CC w/rflx Micro + Cult 6 Months R30.0 - Dysuria Free T4 (Free Thyroxine) 11 E03.9 - Hypothyroidism, unspecified Comprehensive [place]. Panel Fast 6 Months E78.00 - Pure hypercholesterolemia, unspecified Thyroid Stimulating Hormone 6 Months E03.9 - Hypothyroidism, unspecified Free T4 (Free Thyroxine) 6 Months E03.9 - Hypothyroidism, unspecified B Type Natriuretic Peptide 6 Months I50.9 - Heart failure, unspecified Coding Level of Care Code Est Pt Level 4 (29677) Diagnoses Acquired hypothyroidism E03.9 Paroxysmal atrial fibrillation I48.0 Coronary artery disease involving [place] coronary artery of [place] heart without angina pectoris I25.10 Coronary Disease-Associated Artery/Lesion type: [place] artery [place] vs. transplanted heart: [place] heart Associated angina: without angina Essential hypertension I10 Hypertension type: essential hypertension Mixed hyperlipidemia E78.2 Hyperlipidemia type: mixed hyperlipidemia Chronic kidney disease, stage II (mild) N18.2 Neck pain M54.2 Pulmonary nodules R91.8 Vitamin B12 deficiency E53.8 Vitamin D deficiency E55.9 Chronic gastritis without bleeding, unspecified gastritis type K29.50 Gastritis type: unspecified gastritis BPH w urinary obs/LUTS N40.1; N13.8 Overweight (BMI 25.0-29.9) E66.3
== END 2023-03-11 11:29 | disposition home or self-care (01) ==
PROVIDERS: Visit Provider Internal Medicine
DX: E03.9 Hypothyroidism, unspecified (principal); I48.0 Paroxysmal atrial fibrillation; I25.10 Atherosclerotic heart disease of native coronary artery without angina pectoris; I12.9 Hypertensive chronic kidney disease with stage 1 through stage 4 chronic kidney disease, or unspecified chronic kidney disease; E78.2 Mixed hyperlipidemia; N18.2 Chronic kidney disease, stage 2 (mild); M54.2 Cervicalgia; R91.8 Other nonspecific abnormal finding of lung field; E53.8 Deficiency of other specified B group vitamins; E55.9 Vitamin D deficiency, unspecified; K29.50 Unspecified chronic gastritis without bleeding; N40.1 Benign prostatic hyperplasia with lower urinary tract symptoms; N13.8 Other obstructive and reflux uropathy; E66.3 Overweight
CPT/HCPCS: 99214

== ENCOUNTER 2023-04-02 07:48 | Outpatient (REF) | payer MEDICARE, SELFPAY ==
[2023-04-02 09:29] LABS: Free T4 (Free Thyroxine) 0.78 ng/dL (0.71-1.85); Thyroid Stimulating Hormone 19.34 uIU/mL (0.32-4.0)
== END 2023-04-02 07:49 | disposition home or self-care (01) ==
LOC: HO.LAB 07:48
PROVIDERS: PCP Internal Medicine; Visit Provider Internal Medicine
DX: E03.9 Hypothyroidism, unspecified (principal)
CPT/HCPCS: 36415; 84439; 84443

== ENCOUNTER → 2023-05-14 14:33 | Outpatient (BNVA) | payer MEDICARE, SELFPAY | PROVIDERS: PCP Internal Medicine; Visit Provider Internal Medicine Cardiovascular Disease | DX: I49.5 Sick sinus syndrome (principal); I48.0 Paroxysmal atrial fibrillation; I71.20 Thoracic aortic aneurysm, without rupture, unspecified; Z86.79 Personal history of other diseases of the circulatory system | CPT/HCPCS: 93005; 99212 ==

== ENCOUNTER 2023-05-14 14:34 | Outpatient (AMB) | payer MEDICARE, SELFPAY ==
[2023-05-14 15:00] VITALS: BP 136/80; PULSE 48; BMI 26.3
--- NOTE | 2023-05-14 15:00 | A.OFFVIS_ITS ---
Intake Vital Signs 05/14/23 15:00 Height 5 ft 6 in Weight 163 lb 2.273 oz BMI 26.3 BP 136/80 Blood Pressure Location Lt brachial Position Sitting Pulse 48 L Intake Visit Reasons: follow-up with ekg Intake Note: Follow-up with ekg c/o low heart rate and dizziness Community Development Worker Required: No Allergies amoxicillin [Augmentin] Allergy (Unknown, Verified 03/11/23 11:10) Unknown clavulanic acid [Augmentin] Allergy (Unknown, Verified 03/11/23 11:10) unknown raw cherries Allergy (Severe, Uncoded 03/11/23 11:10) anaphylaxis flores Allergy (Unknown, Uncoded 03/11/23 11:10) anaphalyxis Medication List - Last Reconciled 05/14/23 by Ricky Macias MD amiodarone Take a half of the 200 mg tablet to equal 100 mg on and take a full tablet to equal 200 mg daily on R-Mt-Ggo-Fri 90 days amlodipine 10 mg PO DAILY apixaban (Eliquis) 5 mg PO BID atorvastatin 20 mg PO BEDTIME finasteride 5 mg PO DAILY levothyroxine (Synthroid) 75 mcg PO DAILY omeprazole 20 mg PO DAILY tadalafil 5 mg PO DAILY 90 days tamsulosin (Flomax) 0.4 mg PO BEDTIME HPI HPI Comments History of Present Illness Details Dima comes for follow-up as recently had some symptoms of lightheadedness associated slow heart rate. As you aware he has developed significant hypothyroidism for which she has been getting replacement therapy. His TSH has gradually been coming down. He has long history of difficult control atrial fibrillation which is only being controlled after ablation with amiodarone therapy. Currently taking 100 mg 3 times a week along with alternating 200 mg. Patient has fdc history of sinus bradycardia with somewhat chronotropic incompetence with peak heart rate at high workload of only 80 beats per minute. However he has done very well with this and has no exertional symptoms. No lightheadedness or loss of consciousness. More recently he notices that his heart remain in the 40s and along with that he had some lightheadedness. This was concerning to him. No loss of consciousness. He does notice some more exertional fatigue and has notice that heart rate remains in the 40s and only goes up to 60 beats per minute. He comes for further evaluation. No recurrent episodes of heart failure. Blood pressures been well controlled. No bleeding issues or neurologic events. [facility] Medical History (Updated 05/16/23 @ 13:13 by Ricky Macias MD) Sick sinus syndrome Acquired hypothyroidism Diastolic dysfunction Retention of urine Angioedema Acute bacterial prostatitis Prostatitis Hearing aid worn Atrial fibrillation Pulmonary nodules Hyperkalemia Overweight (BMI 25.0-29.9) Vitamin D deficiency Vitamin B12 deficiency Chronic kidney disease, stage II (mild) Chronic gastritis without bleeding Sinus bradycardia Right bundle branch block (RBBB) determined by electrocardiography Hyperlipidemia HTN (hypertension) History of cardiomyopathy History of congestive heart failure Paroxysmal atrial fibrillation CAD (coronary artery disease) On amiodarone therapy Surgical History Hx of ventral hernia repair Hx of hand surgery History of prostate surgery Hx of colostomy History of colon resection Hx of knee surgery Hx of colonoscopy Hx of endoscopy History of radiofrequency ablation procedure for cardiac arrhythmia History of cardioversion Family History Father No problems noted. Mother CVD (cardiovascular disease) CHF (congestive heart failure) Social History Household Members: Spouse Housing: House Do you presently have visiting nurse or other home services: Yes Alcohol intake: current Alcohol intake frequency: holidays/special occasions only Alcohol type: wine Comment: pt refuses bed alarm Patient Tobacco Use Status: Never used Tobacco e-Cigarette/Vaping Use: Never Used Second Hand Smoke Exposure: No service: Yes Current occupational status: retired Cognitive needs: No Hearing needs: Yes Vision needs: Yes Review of Systems Const Denies chills, Denies fatigue, Denies fever(s), Denies frequent falls, Denies weakness, Denies weight gain and Denies weight loss ENT Denies dizziness Card Denies chest pain, Denies leg edema, Denies lightheadedness, Denies palpitations, Denies dyspnea, Denies dyspnea on exertion, Denies orthopnea and Denies other (loss of consciousness) Resp Denies cough, Denies dyspnea and Denies dyspnea on exertion GI Denies hematochezia and Denies change in stool character Musc Denies abnormal gait, Denies muscle weakness, Denies numbness, Denies radiating pain into limb and Denies tingling Neuro Denies abnormal gait, Denies dizziness, Denies frequent falls, Denies numbness, Denies tingling and Denies weakness Endo Denies fatigue and Denies palpitations Physical Exam Vital Signs: Last Vital Signs Pulse 48 L 05/14/23 15:00 BP 136/80 05/14/23 15:00 BMI result Body Mass Index 26.3 Const General: cooperative, comfortable, no acute distress, alert and awake Nutritional Appearance: overweight Orientation/consciousness: patient oriented x3 Limitations: no limitations Neck Neck: Yes trachea midline, Yes supple and Yes no JVD Resp Effort & Inspection: normal respiratory effort Auscultation: clear to auscultation bilaterally Cardio Jugular venous distension: no JVD Palpation: normal PMI Rate: regular rate Rhythm: regular rhythm Heart sounds: S1 normal heart sound present, S2 normal heart sound present, no click, no gallops, no murmurs and Other heart sounds present (S4 present) GI Auscultation: normal bowel sounds Skin General skin exam: no rashes or lesions noted Neuro General: patient oriented x3 and no focal motor deficits Extrem General: Yes no clubbing, cyanosis or edema Office Procedures EKG Details: EKG shows sinus bradycardia with first-degree AV block with right bundle and left anterior fascicular block. [id number], Complete Assessment & Plan Assessment & Plan (1) Sick sinus syndrome: Code(s): I49.5 - Sick sinus syndrome Plan: Patient with recent symptoms lightheadedness which are concerning to me and most likely related to sick sinus syndrome. Although he says the symptoms have improved now and heart rate has marginally improved with correction of his hypothyroidism. He has long-term history of sinus bradycardia and suggestion of sinoatrial lisa dysfunction related to medical therapy with amiodarone. He also has significant hypothyroidism which is currently being corrected. Currently is not having any symptoms although we discussed about concerning symptoms that he should report to me. Any symptoms of continue lightheadedness, worsening exertional fatigue or shortness of breath and/or syncope should be reported to me. We discussed about pacemaker placement for tachy-sudhir syndrome. 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 However this is clearly exacerbated by therapy with amiodarone and hypothyroidism. He is not too keen on the pacemaker placement this point time and wants to try more conservative management. We had a long detailed discussion about this. We agreed to reduce amiodarone 200 mg daily. Risk of recurrent atrial fibrillation as in the past was discussed with him. He understands. If he develops recurrent atrial fibrillation and required higher dose of amiodarone then will pursue pacemaker placement followed by cardioversion and increase amiodarone therapy. He understands and agrees. However with reduction amiodarone does as well as continue thyroid replacement if his bradycardia improved and symptoms remained stable will pursue Holter monitor in 4 weeks time to assess for any significant pauses that may also necessitate pacemaker placement. We discussed about the nature of pacemaker placement and how pacemaker would help. He shows understanding. He wants to defer the pacemaker for now. I have a follow-up with him in July. Advised to call me with any new symptoms before that. (2) Paroxysmal atrial fibrillation: Comment: Myocardial perfusion study done on 06/13/2020 came out normal Echocardiogram done in April 2020 also came out normal, with normal left ventricular systolic function and ejection fraction estimated between 65-70%. 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 and this will be monitored closely Code(s): I48.0 - Paroxysmal atrial fibrillation Plan: Paroxysmal atrial fibrillation as well as flutter, status post ablation. Difficult control and has required amiodarone therapy and has been on amiodarone for long-term. Has done extremely well with rhythm management will continue pursue rhythm management. Continue full oral anticoagulation, currently on Eliquis 5 mg b.i.d.. Semi annual renal function test should be pursued. (3) Thoracic aortic aneurysm: Code(s): I71.20 - Thoracic aortic aneurysm, without rupture, unspecified Plan: Thoracic aortic aneurysm which is stable at this point time. No interventions required. Follow annually with echocardiogram. Advised to avoid sudden strenuous isometric exercise. Continue aggressive blood pressure control which is currently well optimized. (4) History of cardiomyopathy: Code(s): Z86.79 - Personal history of other diseases of the circulatory system Plan: Prior history of cardiomyopathy and severe heart failure syndrome in the setting of atrial fibrillation. This has reversed with normalized LV ejection fraction with maintenance of rhythm. Continue aggressive rhythm control approach. Continue aggressive blood pressure control which is currently well optimized. Signs and symptoms of heart failure were discussed Will follow up in the clinic in July during his usual visit. Greater than 40 minutes was spent in managing his care Orders: Orders ECG 3 day holter monitor 4 Weeks I48.0 - Paroxysmal atrial fibrillation Medications: Changed From amiodarone Take a half of the 200 mg tablet to equal 100 mg on and take a full tablet to equal 200 mg daily on 90 days 66 tabs 3RF To amiodarone 100 mg (1/2 x 200 mg) PO DAILY 90 days 45 tabs 3RF Coding Level of Care Code Est Pt Level 5 (10804) Diagnoses Sick sinus syndrome I49.5 Paroxysmal atrial fibrillation I48.0 Thoracic aortic aneurysm I71.20 History of cardiomyopathy Z86.79 CPT Codes EKG - CPT: 91542-[id number], Complete ([id number])
== END 2023-05-14 15:37 | disposition home or self-care (01) ==
PROVIDERS: PCP Internal Medicine; Visit Provider Internal Medicine Cardiovascular Disease
DX: I49.5 Sick sinus syndrome (principal); I48.0 Paroxysmal atrial fibrillation; I71.20 Thoracic aortic aneurysm, without rupture, unspecified; Z86.79 Personal history of other diseases of the circulatory system
CPT/HCPCS: 93010; 99215

== ENCOUNTER 2023-05-27 10:29 | Outpatient (REF) | payer MEDICARE, SELFPAY ==
[2023-05-27 12:33] LABS: Free T4 (Free Thyroxine) 1.03 ng/dL (0.71-1.85)
== END 2023-05-27 10:30 | disposition home or self-care (01) ==
LOC: HO.LAB 10:29
PROVIDERS: PCP Internal Medicine; Visit Provider Internal Medicine
DX: E03.9 Hypothyroidism, unspecified (principal)
CPT/HCPCS: 36415; 84439; 84443

== ENCOUNTER → 2023-06-09 08:45 | Outpatient (REF) | payer MEDICARE, SELFPAY ==
--- NOTE | 2023-06-09 08:47 | HM_ITS ---
* Total monitoring time 3 days. * Underlying rhythm is sinus bradycardia. Average ventricular rate 54/Min. Range 38 to 95/Min. About 81% of the time, rate <60/min. * Rare supraventricular ectopy. * Rare ventricular ectopy. Few couplets. * No significant pauses or high-grade AV block. * No patient markers or diary symptoms. MTDD
== END ==
LOC: HO.CARD 08:45
PROVIDERS: PCP Internal Medicine; Visit Provider Internal Medicine Cardiovascular Disease
DX: I48.0 Paroxysmal atrial fibrillation (principal)
CPT/HCPCS: 93242

== ENCOUNTER → 2023-06-09 08:47 | Outpatient (BNV) | payer MEDICARE, SELFPAY | PROVIDERS: PCP Internal Medicine; Visit Provider Internal Medicine | DX: I47.10 Supraventricular tachycardia, unspecified (principal) | CPT/HCPCS: 93244 ==

== ENCOUNTER → 2023-07-02 10:46 | Outpatient (REF) | payer MEDICARE, SELFPAY ==
--- NOTE | 2023-07-02 10:49 | CA_ITS ---
Transthoracic Echocardiogram Patient (Last, First, Middle): Suhail Reece J Gender: Male Date of : 1935 Age: 87 Procedure Date: 07/02/2023 Procedure Type: Transthoracic Echocardiogram Location: OP Height: 167.64 cm Weight: 73.94 kg BSA: 1.83 m2 Heart Rate: 45 bpm BP: 134 / 78 mmHg Spice Fumigator: SB Referring MD: Ricky Macias MD Symptoms: I71.20 - Thoracic aortic aneurysm, without rupture, unspecified Study Quality: Adequate w contrast ECG Rhythm: Bradycardia Conclusions: - The left ventricular systolic function is normal. The calculated ejection fraction is 62% by biplane method. - Evidence suggests grade III (severe) diastolic dysfunction. - There is mild aortic valve regurgitation. - There is mild dilatation of the ascending aorta measuring 4.20 cm and mild dilatation of the aortic arch measuring 4.00 cm. Findings Procedure Information Contrast agent, definity, is being given per protocol without apparent complications. Left Ventricle Normal left ventricular cavity size. There is normal left ventricular wall thickness. The left ventricular systolic function is normal. The calculated ejection fraction is 62% by biplane method. There is no evidence of regional wall motion abnormalities. Evidence suggests grade III (severe) diastolic dysfunction. Right Ventricle Mildly increased right ventricular cavity size. There is low normal right ventricular systolic function. Atria The left atrium is moderately dilated. The right atrium is normal in size. Aortic Valve There is a normal trileaflet aortic valve. There is mild calcification of the aortic valve. There is no aortic valve stenosis. There is mild aortic valve regurgitation. Mitral Valve The mitral valve appears normal. There is trace mitral valve regurgitation. There is no mitral valve stenosis. Pulmonic Valve There is trace pulmonic valve regurgitation. Tricuspid Valve Normal tricuspid valve structure. There is trace tricuspid valve regurgitation. Mild pulmonary hypertension is present. Great Vessels The asc aorta is normal in size. There is mild dilatation of the ascending aorta measuring 4.20 cm and mild dilatation of the aortic arch measuring 4.00 cm. Venous The inferior vena cava is normal in size and collapses greater than 50% with inspiration. Pericardium/Pleural There is no evidence of pericardial effusion. Prior Study Comparison No significant change compared to prior study dated: 07/16/2022. Measurements 2D Linear Measurements IVSd: 0.95 0.6-0.9/0.6-1.0 cm LVIDd: 6.05 3.9-5.3/4.2-5.9 cm LVIDd Index: 3.31 2.4-3.2/2.2-3.1 cm/m2 LVIDs: 4.58 2.0-3.6 cm LVPWd: 0.91 0.7-1.1 cm LA Diam: 4.60 2.7-3.8/3.0-4.0 cm LAIDs Index: 2.51 1.5-2.3 cm/m2 LV Mass: 284.02 67-162/88-224 g LV Mass Index: 155.20 43-95/49-115 g/m2 LVOT Diam: 2.20 3.0+(-)1.3 cm 2D Systolic Function EF 4C: 58.90 >55% EF 2C: 63.70 >55% EF BiP: 62.20 >55% Mitral Valve MV Pk E: 0.57 MV PK A: 0.27 MV Decel Time: 405.00 E/A: 2.20 E'Medial: 4.22 E/E' Med: 13.60 PHT: 119.00 MVA PHT: 1.85 Decel [place]: 1.42 Aortic Valve AoV Pk Murray: 1.48 AoV Pk Grad: 9.00 RHONDA: 2.92 AI Pk Murray: 4.09 AI VTI: 3.14 AI [place]: 1.60 LVOT LVOT Pk Murray: 1.06 LVOT Mn Murray: 0.69 LVOT VTI: 0.26 LVOT Pk Grad: 4.00 LVOT Mn Grad: 2.00 LVOT Diam: 2.20 LVOT Area: 3.80 Diastolic Function MV Pk E: 0.57 MV Pk A: 0.27 E/A: 2.20 E'Medial: 4.22 E/E' Med: 13.60 Right Ventricle TAPSE (mm): 16.00 TVS' Murray: 11.20 Tricuspid Valve TR Pk Murray: 3.17 TR Pk Grad: 40.00 RA Press: 3.00 RVSP: 43.00 Great Vessels Aorta Sinus of Valsalva: 3.70 2.0-3.5 cm Ao Asc: 4.20 2.1-3.4 cm Ao Arch: 4.00 Pulmonary Valve PV Pk Murray: 1.05 Peak PV Grad: 4.00 AK Pk Murray: 2.65 Updated in Other Vendor System with Status of Final Kenan Zelaya MD electronically signed on 07/04/2023 11:24:06 AM with status of Final
== END ==
LOC: HO.CARD 10:46
PROVIDERS: PCP Internal Medicine; Visit Provider Internal Medicine Cardiovascular Disease
DX: I71.20 Thoracic aortic aneurysm, without rupture, unspecified (principal)
CPT/HCPCS: 93306; Q9957

== ENCOUNTER → 2023-07-02 10:49 | Outpatient (BNV) | payer MEDICARE, SELFPAY | PROVIDERS: PCP Internal Medicine; Visit Provider Internal Medicine | DX: I35.1 Nonrheumatic aortic (valve) insufficiency (principal) | CPT/HCPCS: 93306 ==

== ENCOUNTER 2023-07-11 08:10 | Outpatient (REF) | payer MEDICARE, SELFPAY ==
[2023-07-11 09:19] LABS: Anion Gap 12 (12-20); Blood Urea Nitrogen 23 mg/dL (9-16); Calcium 9.5 mg/dL (8.4-10.2); Carbon Dioxide 28 mmol/L (22-29); Chloride 106 mmol/L (96-108); Estimated Glomerular Filt Rate 59; Glucose Random 92 mg/dL (60-115); Potassium 4.4 mmol/L (3.3-5.1); Sodium 142 mmol/L (135-145)
[2023-07-11 09:20] LABS: B Type Natriuretic Peptide 92 pg/mL (<100)
== END 2023-07-11 08:11 | disposition home or self-care (01) ==
LOC: HO.LAB 08:10
PROVIDERS: PCP Internal Medicine; Visit Provider Internal Medicine Cardiovascular Disease
DX: Z86.79 Personal history of other diseases of the circulatory system (principal)
CPT/HCPCS: 36415; 80048; 83880

== ENCOUNTER 2023-08-12 09:01 | Outpatient (AMB) | payer MEDICARE, SELFPAY ==
[2023-08-12 09:09] VITALS: BP 120/74; PULSE 49; BMI 26.3
--- NOTE | 2023-08-12 09:09 | MHC.OFFVIS ---
Intake Vital Signs 08/12/23 09:09 Height 5 ft 6 in Weight 163 lb 2.273 oz BMI 26.3 BP 120/74 Blood Pressure Location Lt brachial Position Sitting Pulse 49 L Intake Visit Reasons: 6 month follow-up with ekg Intake Note: 6 month follow-up with ekg feeling good Lead Inspector Required: No Allergies amoxicillin [Augmentin] Allergy (Unknown, Verified 03/11/23 11:10) Unknown clavulanic acid [Augmentin] Allergy (Unknown, Verified 03/11/23 11:10) unknown raw cherries Allergy (Severe, Uncoded 03/11/23 11:10) anaphylaxis flores Allergy (Unknown, Uncoded 03/11/23 11:10) anaphalyxis Medication List - Last Reconciled 08/12/23 by Ricky Macias MD amiodarone 200 mg PO DAILY 90 days amlodipine 10 mg PO DAILY apixaban (Eliquis) 5 mg PO BID atorvastatin 20 mg PO BEDTIME finasteride 5 mg PO DAILY furosemide 20 mg PO DAILY levothyroxine (Synthroid) 75 mcg PO DAILY omeprazole 20 mg PO DAILY tamsulosin (Flomax) 0.4 mg PO BEDTIME HPI HPI Comments History of Present Illness Details 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 Since I last saw him 3 months ago we diagnose with hypothyroidism and replacement of thyroid hormone was pursued more aggressively. Now is TSH normalized and he said he feels a lot more energy. His symptoms of lightheadedness have improved. He now notices his resting heart rate to be in the lower 50s and with exercise going up to 80 beats per minute. He has not noticing increasing exertional shortness of breath especially when he goes up a steep hill. He however pursued walking for a mi without stopping despite shortness of breath. He is also noticing more leg edema. He is on Lasix 20 mg daily. This he says has not made much of a difference. He denies any clear orthopnea, PND, chest discomfort. No syncopal episodes. He has not had any further episodes of atrial fibrillation since increasing his amiodarone to 200 mg daily. His most recent echocardiogram showed normal LV ejection fraction with advanced diastolic dysfunction, grade 3. Mild pulmonary hypertension was noted [facility] Medical History (Updated 08/12/23 @ 09:46 by Ricky Macias MD) (HFpEF) heart failure with preserved ejection fraction Sick sinus syndrome Acquired hypothyroidism Diastolic dysfunction Retention of urine Angioedema Acute bacterial prostatitis Prostatitis Hearing aid worn Atrial fibrillation Pulmonary nodules Hyperkalemia Overweight (BMI 25.0-29.9) Vitamin D deficiency Vitamin B12 deficiency Chronic kidney disease, stage II (mild) Chronic gastritis without bleeding Sinus bradycardia Right bundle branch block (RBBB) determined by electrocardiography Hyperlipidemia HTN (hypertension) History of cardiomyopathy History of congestive heart failure Paroxysmal atrial fibrillation CAD (coronary artery disease) On amiodarone therapy Surgical History Hx of ventral hernia repair Hx of hand surgery History of prostate surgery Hx of colostomy History of colon resection Hx of knee surgery Hx of colonoscopy Hx of endoscopy History of radiofrequency ablation procedure for cardiac arrhythmia History of cardioversion Family History Father No problems noted. Mother CVD (cardiovascular disease) CHF (congestive heart failure) Social History Household Members: Spouse Housing: House Do you presently have visiting nurse or other home services: Yes Alcohol intake: current Alcohol intake frequency: holidays/special occasions only Alcohol type: wine Comment: pt refuses bed alarm Patient Tobacco Use Status: Never used Tobacco e-Cigarette/Vaping Use: Never Used Second Hand Smoke Exposure: No service: Yes Current occupational status: retired Cognitive needs: No Hearing needs: Yes Vision needs: Yes Review of Systems Const Denies chills, Denies fatigue, Denies fever(s), Denies frequent falls, Denies weakness, Denies weight gain and Denies weight loss ENT Denies dizziness Card Denies chest pain, Denies leg edema, Denies lightheadedness, Denies palpitations, Denies dyspnea, Denies dyspnea on exertion, Denies orthopnea and Denies other (loss of consciousness) Resp Denies cough, Denies dyspnea and Denies dyspnea on exertion GI Denies hematochezia and Denies change in stool character Musc Denies abnormal gait, Denies muscle weakness, Denies numbness, Denies radiating pain into limb and Denies tingling Neuro Denies abnormal gait, Denies dizziness, Denies frequent falls, Denies numbness, Denies tingling and Denies weakness Endo Denies fatigue and Denies palpitations Physical Exam Vital Signs: Last Vital Signs Pulse 49 L 08/12/23 09:09 BP 120/74 08/12/23 09:09 BMI result Body Mass Index 26.3 Const General: cooperative, comfortable, no acute distress, alert and awake Nutritional Appearance: overweight Orientation/consciousness: patient oriented x3 Limitations: no limitations Neck Neck: Yes trachea midline, Yes supple and Yes no JVD (Positive AJR) Resp Effort & Inspection: normal respiratory effort Auscultation: clear to auscultation bilaterally Cardio Jugular venous distension: no JVD Palpation: normal PMI Rate: bradycardic Rhythm: regular rhythm Heart sounds: S1 normal heart sound present, S2 normal heart sound present, no click, no gallops, no murmurs and Other heart sounds present (S4 present) GI Auscultation: normal bowel sounds Skin General skin exam: no rashes or lesions noted Neuro General: patient oriented x3 and no focal motor deficits Extrem General: No clubbing, No cyanosis and Yes edema Office Procedures EKG Details: EKG shows sinus bradycardia with first-degree AV block with right bundle-branch block at 49 beats per minute [id number], Complete Assessment & Plan Assessment & Plan (1) (HFpEF) heart failure with preserved ejection fraction: Code(s): I50.30 - Unspecified diastolic (congestive) heart failure Plan: Patient having some increased symptoms of exertional shortness of breath most likely related to aging as well as diastolic dysfunction development of heart failure syndrome. She does have evidence of mild central venous congestion as well as leg edema. Continue Lasix 20 mg daily. Heart failure management discussed. Daily weight monitoring avoidance of salt loading was discussed additional diuretics as need be. Based on recent data will start him on Jardiance 10 mg a day to reduce risk of hospitalization. Continue aggressive blood pressure control as well as continue aggressively rhythm control approach which has helped him significantly. Signs and symptoms of progressive heart failure were discussed. Advised to call me with worsening symptoms. He is encouraged to continue to participate in physical activity as tolerated. (2) Sick sinus syndrome: Code(s): I49.5 - Sick sinus syndrome Plan: Sick sinus syndrome with improved symptoms after correction of hypothyroidism. His probably improve his chronotropic competence. He still continues to have chronotropic incompetence with heart rate only at maximum at 80 beats per minute. Discussed that this could be corrected with pacing therapy although does not have any other symptoms of poor cardiac output. Will continue monitor clinically. Advised to call me with worsening symptoms. (3) Paroxysmal atrial fibrillation: Comment: Myocardial perfusion study done on 06/13/2020 came out normal Echocardiogram done in April 2020 also came out normal, with normal left ventricular systolic function and ejection fraction estimated between 65-70%. 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 and this will be monitored closely Code(s): I48.0 - Paroxysmal atrial fibrillation Plan: Paroxysmal atrial fibrillation which has remained controlled and now on high dose of amiodarone. His hypothyroidism is not corrected. Continue amiodarone therapy which has helped with maintenance of sinus rhythm. Continue check for annual amiodarone toxicity. Continue full oral anticoagulation, currently on Eliquis 5 mg b.i.d.. Quarterly renal function test should be pursued. Will follow up in the clinic in 3 months time, sooner p.r.n.. Thank you for allowing me to partake in his care Medications: New empagliflozin (Jardiance) 10 mg PO DAILY 30 tabs 5RF Changed From amiodarone 100 mg (1/2 x 200 mg) PO DAILY 90 days 45 tabs 3RF To amiodarone 200 mg PO DAILY 90 tabs 3RF 90 days Coding Level of Care Code Est Pt Level 4 (89486) Diagnoses (HFpEF) heart failure with preserved ejection fraction I50.30 Sick sinus syndrome I49.5 Paroxysmal atrial fibrillation I48.0 CPT Codes EKG - CPT: 80238-[id number], Complete ([id number])
== END 2023-08-12 09:44 | disposition home or self-care (01) ==
PROVIDERS: PCP Internal Medicine; Visit Provider Internal Medicine Cardiovascular Disease
DX: I50.30 Unspecified diastolic (congestive) heart failure (principal); I49.5 Sick sinus syndrome; I48.0 Paroxysmal atrial fibrillation
CPT/HCPCS: 93010; 99214

== ENCOUNTER → 2023-08-12 09:01 | Outpatient (BNVA) | payer MEDICARE, SELFPAY | PROVIDERS: PCP Internal Medicine; Visit Provider Internal Medicine Cardiovascular Disease | DX: I50.30 Unspecified diastolic (congestive) heart failure (principal) | CPT/HCPCS: 93005; 99212 ==

== ENCOUNTER 2023-08-29 09:00 | Outpatient (AMB) | payer MEDICARE, SELFPAY ==
--- NOTE | 2023-08-29 09:01 | A.OFFVIS_ITS ---
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 He is seen for the following urologic conditions - recurrent prostatitis - lower urinary tract symptoms - erectile dysfunction PVR 15 cc Significant improvement with combination medication Continues with finasteride to Friday, Friday, Friday Continuing with tamsulosin Discussed stopping tamsulosin but he would like to continue Six-month follow-up PVR and U[facility] 2021 had episode of prostatitis with 300 cc retention Does have mild hypospadias Recurrent prostatitis Seen in hospital in November for episode of prostatitis On those occasions he has become septic quickly with minimal prodrome BPH longstanding Prior TURP with Dr. Turcios when aged approximately 67 Current therapy combination Lower urinary tract symptoms Improvement on combination therapy - finasteride with tamsulosin Still with occasional nocturia Prior traumatic office cystoscopies PSA 06/17 1.99, 02/15 1.0 Erectile dysfunction Declining response to 50 mg sildenafil Increased to 100mg Trial daily tadalafil 5 mg - ineffective [facility] Medical History (HFpEF) heart failure with preserved ejection fraction Sick sinus syndrome Acquired hypothyroidism Diastolic dysfunction Retention of urine Angioedema Acute bacterial prostatitis Prostatitis Hearing aid worn Atrial fibrillation Pulmonary nodules Hyperkalemia Overweight (BMI 25.0-29.9) Vitamin D deficiency Vitamin B12 deficiency Chronic kidney disease, stage II (mild) Chronic gastritis without bleeding Sinus bradycardia Right bundle branch block (RBBB) determined by electrocardiography Hyperlipidemia HTN (hypertension) History of cardiomyopathy History of congestive heart failure Paroxysmal atrial fibrillation CAD (coronary artery disease) On amiodarone therapy Surgical History Hx of ventral hernia repair Hx of hand surgery History of prostate surgery Hx of colostomy History of colon resection Hx of knee surgery Hx of colonoscopy Hx of endoscopy History of radiofrequency ablation procedure for cardiac arrhythmia History of cardioversion Family History Father No problems noted. Mother CVD (cardiovascular disease) CHF (congestive heart failure) Social History Household Members: Spouse Housing: House Do you presently have visiting nurse or other home services: Yes Alcohol intake: current Alcohol intake frequency: holidays/special occasions only Alcohol type: wine Comment: pt refuses bed alarm Patient Tobacco Use Status: Never used Tobacco e-Cigarette/Vaping Use: Never Used Second Hand Smoke Exposure: No service: Yes Current occupational status: retired Cognitive needs: No Hearing needs: Yes Vision needs: Yes Review of Systems Const Denies chills and Denies fever(s) Card Reports no additional complaints and Denies syncope Resp Denies cough GI Denies abdominal pain and Denies heartburn Reports as per HPI and Denies change in libido Neuro Denies syncope Psych Denies change in libido Endo Denies change in libido Physical Exam Const General: cooperative, healthy appearing, comfortable and no acute distress Orientation/consciousness: patient oriented x3 HEENT Face and sinus: Yes normal facial exam Mouth: moist mucous membranes Neck Neck: Yes normal visual inspection, Yes full ROM and Yes trachea midline Chest Chest palpation & inspection: normal inspection of the chest Resp Effort & Inspection: normal respiratory effort, able to speak in complete sentences and no respiratory distress GI Inspection: Yes normal to inspection Back/Spine/Pelvis Cervical Spine: normal cervical lordosis Thoracic/Lumbar Spine: thoracic and lumbar spine normal to inspection Skin General skin exam: no rashes or lesions noted Neuro General: patient oriented x3, gait normal, tone normal and moves all extremities Extrem General: Yes normal to inspection and Yes capillary refill normal Office Procedures Post Void Residual Post Residual Void Post Void Residual (PVR): 0 11197-[id number] Void Residual by ultrasound Assessment & Plan Assessment & Plan (1) BPH w urinary obs/LUTS: Code(s): N40.1 - Benign prostatic hyperplasia with lower urinary tract symptoms; N13.8 - Other obstructive and reflux uropathy (2) Prostatitis: Code(s): N41.9 - Inflammatory disease of prostate, unspecified Qualifiers: Prostatitis type: unspecified Qualified Code(s): N41.9 - Inflammatory disease of prostate, unspecified Plan Six-month follow-up UA and PVR Orders: Orders AMB Post Void Residual by ultrasound Today R33.9 - Retention of urine, unspecified Medications: New sulfamethoxazole-trimethoprim 800-160 mg (Bactrim DS) 1 tab PO BID 14 days 28 tabs 0RF N39.0 - Urinary tract infection, site not specified, N41.9 - Inflammatory disease of prostate, unspecified tamsulosin 0.4 mg PO BEDTIME 30 days 30 caps 0RF R35.1 - Nocturia Patient Instructions: Imaging studies, laboratory and physical exam results were discussed and reviewed in detail. No major barriers to patient understanding were identified. An opportunity to ask questions regarding the treatment plan was provided. All questions were answered. The patient expressed understanding and agreement with the above treatment plan. The patient is aware they should contact our office by phone for worsening of their current condition or the appearance of new urologic symptoms. Compliance is encouraged with any medications and followup testing that is ordered. It is a privilege to participate in the urologic care of your patient. If you have any questions or concerns regarding treatment for the above conditions, or other urologic issues, please do not hesitate to contact me. The office telephone contact is [phone]. This note is constructed using voice recognition software. While every effort has been made to ensure accuracy taxi servicer errors may have been included. Yours sincerely, Dr Jeff Hdz MD, [facility] - Urology Providers of Expert, Compassionate Care for the Genitourinary System Coding Level of Care Code Est Pt Level 4 (64261) Diagnoses BPH w urinary obs/LUTS N40.1; N13.8 Prostatitis, unspecified prostatitis type N41.9 Prostatitis type: unspecified CPT Codes Post Residual Void - PVR CPT Code: 01484-Dtms Void Residual by ultrasound ([id number])
== END 2023-08-29 09:55 | disposition home or self-care (01) ==
PROVIDERS: PCP Internal Medicine; Visit Provider Urology
DX: N40.1 Benign prostatic hyperplasia with lower urinary tract symptoms (principal); N13.8 Other obstructive and reflux uropathy; N41.9 Inflammatory disease of prostate, unspecified
CPT/HCPCS: 99214

== ENCOUNTER → 2023-08-29 09:00 | Outpatient (BNVA) | payer MEDICARE, SELFPAY | PROVIDERS: PCP Internal Medicine; Visit Provider Urology | DX: N40.1 Benign prostatic hyperplasia with lower urinary tract symptoms (principal); N13.8 Other obstructive and reflux uropathy; N41.9 Inflammatory disease of prostate, unspecified | CPT/HCPCS: 51798; 99212 ==

== ENCOUNTER 2023-09-16 10:30 | Outpatient (AMB) | payer MEDICARE, SELFPAY ==
[2023-09-16 10:51] VITALS: BP 130/68; PULSE 60; O2SAT 98; BMI 29.4
--- NOTE | 2023-09-16 10:51 | A.OFFPC_ITS ---
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 Accompanied by: Self / Same As Patient Allergies amoxicillin [Augmentin] Allergy (Unknown, Verified 09/16/23 11:21) Unknown clavulanic acid [Augmentin] Allergy (Unknown, Verified 09/16/23 11:21) unknown raw cherries Allergy (Severe, Uncoded 09/16/23 11:21) anaphylaxis flores Allergy (Unknown, Uncoded 09/16/23 11:21) anaphalyxis Medication List - Last Reconciled 09/16/23 by Prem Green MD amiodarone 200 mg PO DAILY 90 days amlodipine 10 mg PO DAILY apixaban (Eliquis) 5 mg PO BID atorvastatin 20 mg PO BEDTIME empagliflozin (Jardiance) 10 mg PO DAILY finasteride 5 mg PO DAILY furosemide 20 mg PO DAILY levothyroxine (Synthroid) 75 mcg PO DAILY omeprazole 20 mg PO DAILY sulfamethoxazole-trimethoprim 800-160 mg (Bactrim DS) 1 tab PO BID 14 days tamsulosin (Flomax) 0.4 mg PO BEDTIME tamsulosin 0.4 mg PO BEDTIME 30 days Tobacco use date assessed: 09/16/23 Fall risk assessment: No Falls in past year Last assessed Fall Risk: 09/16/23 Dental Screening Dental Screen Date: 09/16/23 Did you have a dental visit in the last 12 months?: Yes Did you have a dental problem in the last 6 months where you did not have access to dental care?: No Was dental information given to patient?: Patient has dentist HPI 6 month f/u HPI Details Patient comes in today for his follow up visit States that he feels okay He denies any headaches or dizziness Denies any chest pains, no increased SOB although he has been noticing some SOB with increased exertion at times for a while now States that he was recently advised by cardiology based on his echocardiogram that he has heart failure with preserved ejection fraction, which would explain his symptoms He was started on Jardiance 10 mg QD to help reduce his risk of hospitalization and patient states that since he was started on Jardiance about a month ago, he has been experiencing frequent bladder spasms and recurrent burning sensation on urination and he is considering stopping this Rx No nausea/vomiting, no abdominal pain No change in bowel habits noted Needs his Levothyroxine Rx refilled He had his follow up labs done at the [place] last month on 07/31/2023 - to discuss his results [facility] Medical History (HFpEF) heart failure with preserved ejection fraction Sick sinus syndrome Acquired hypothyroidism Diastolic dysfunction Retention of urine Angioedema Acute bacterial prostatitis Prostatitis Hearing aid worn Atrial fibrillation Pulmonary nodules Hyperkalemia Overweight (BMI 25.0-29.9) Vitamin D deficiency Vitamin B12 deficiency Chronic kidney disease, stage II (mild) Chronic gastritis without bleeding Sinus bradycardia Right bundle branch block (RBBB) determined by electrocardiography Hyperlipidemia HTN (hypertension) History of cardiomyopathy History of congestive heart failure Paroxysmal atrial fibrillation CAD (coronary artery disease) On amiodarone therapy Surgical History Hx of ventral hernia repair Hx of hand surgery History of prostate surgery Hx of colostomy History of colon resection Hx of knee surgery Hx of colonoscopy Hx of endoscopy History of radiofrequency ablation procedure for cardiac arrhythmia History of cardioversion Family History Father No problems noted. Mother CVD (cardiovascular disease) CHF (congestive heart failure) Social History Household Members: Spouse Housing: House Do you presently have visiting nurse or other home services: Yes Alcohol intake: current Alcohol intake frequency: holidays/special occasions only Alcohol type: wine Comment: pt refuses bed alarm Patient Tobacco Use Status: Never used Tobacco e-Cigarette/Vaping Use: Never Used Second Hand Smoke Exposure: No service: Yes Current occupational status: retired Cognitive needs: No Hearing needs: Yes Vision needs: Yes Questionnaire PHQ-9 Over the last 2 weeks, how often have you been bothered by any of the following problems? 1. Little interest or pleasure in doing things: not at all 2. Feeling down, depressed, or hopeless: not at all 3. Trouble falling or staying asleep, or sleeping too much: not at all 4. Feeling tired or having little energy: not at all 5. Poor appetite or overeating: not at all 6. Feeling bad about yourself - or that you are a failure or have let yourself or your family down: not at all 7. Trouble concentrating on things, such as reading the newspaper or watching television: not at all 8. Moving or speaking so slowly that other people could have noticed. Or the opposite - being so fidgety or restless that you have been moving around a lot more than usual: not at all 9. Thoughts that you would be better off or of hurting yourself in some way: not at all Total score: 0 Depression Screening Interpretation: Negative Depression Screening Done: Yes 64503 - PHQ-9 Billing: Yes Source: Developed by Drs. Lalo Trevino, Rosalina Faith, Tong Eaton and colleagues, with an educational mariah from [employer]. Thrive Questionnaire Date Thrive assessed: 09/16/23 I am a: Patient What is your living situation today?: I have a steady place to live Within the past 12 months, did the food you bought not last and you didn't have the money to get more?: Never true Within the past 12 months, did you worry whether your food would run out before you got money to buy more?: Never true Do you have trouble paying for medicines?: No Do you have trouble getting transportation to medical appointments?: No Do you have trouble paying your heating and electricity bill?: No Do you have trouble taking care of your child, family member or friend?: No Do you have trouble with day-to-day activities such as bathing, preparing meals, shopping, managing finances, etc.?: No Are you currently unemployed and looking for a job?: No Are you interested in more education?: No Please select the resources that you would like help with: None Currently or been in a relationship where the following occur: no concerns reported THRIVE Score: 0 AUDIT C Alcohol Use Questionnaire (AUDIT-C) 1. How often do you have a drink containing alcohol?: Never 3. How often do you have six or more drinks on one occasion?: Never Total Score: 0 Score Reviewed/Action Taken: Yes KENNY-7 AMB Questionnaire KENNY-7 Date KENNY - 7 assessed: 09/16/23 Feeling nervous, anxious, or on edge: 0 = Not at all Not being able to stop or control worryin = Not at all Worrying too much about different things: 0 = Not at all Trouble relaxin = Not at all Being so restless that it is hard to sit still: 0 = Not at all Becoming easily annoyed or irritable: 0 = Not at all Feeling afraid as if something awful might happen: 0 = Not at all Total KENNY-7 score (0-4 normal; 5-9 mild; 10-14 moderate; 15-21 severe): 0 Source: Developed by Drs. Lalo Trevino, Rosalina Faith, Tong Eaton and colleagues, with an educational mariah from [employer]. KENNY-7 Assessment Billing KENNY-7 Assessment Tool: KENNY-7 Assessment 50965 Review of Systems Const Denies chills, Denies fatigue, Denies fever(s) and Denies headache(s) ENT Denies dysphagia, Denies dizziness, Denies otalgia, Denies headache(s), Denies neck pain, Denies odynophagia and Denies sore throat Card Denies chest pain, Denies palpitations and Denies dyspnea Resp Denies cough and Denies dyspnea GI Denies abdominal pain, Denies constipation, Denies dysphagia, Denies heartburn, Denies diarrhea, Denies nausea, Denies odynophagia and Denies vomiting Reports dysuria (burning sensation and bladder spasms - mostly due to Jardian ce), Denies nocturia and Denies urinary frequency Musc Denies back pain, Denies neck pain and Reports stiffness Skin/Breast Denies rash Neuro Denies dizziness and Denies headache(s) Endo Denies fatigue and Denies palpitations Physical exam (Primary Care) Vital Signs: Last Vital Signs Pulse 60 09/16/23 10:51 BP 130/68 09/16/23 10:51 Pulse Ox 98 09/16/23 10:51 Oxygen Delivery Method Room Air 09/16/23 10:51 BMI result Body Mass Index 29.4 Tobacco/Smoking Status: Tobacco use Status Tobacco use date assessed 09/16/23 09/16/23 11:06 Patient Tobacco Use Status Never used Tobacco 09/16/23 10:51 e-Cigarette/Vaping Use Never Used 09/16/23 10:51 PHQ-9: PHQ-9 Score PHQ-9: Total score 0 09/16/23 11:31 Depression Screening Interpretation: Negative Thrive Assessment: Date of Thrive Assessment Date Thrive assessed 09/16/23 09/16/23 11:06 Currently or been in a relationship where the following occur: no concerns reported Const General: no acute distress and alert HENMT Ears: TM's normal bilaterally and EAC's normal Throat: Yes posterior oropharynx normal and Yes tonsils normal (no TP congestion noted) Neck Neck: Yes no lymphadenopathy and Yes tender Resp Auscultation: clear to auscultation bilaterally, no rales and no wheezes Cardio Rate: bradycardic Rhythm: regular rhythm Heart sounds: no murmurs GI Palpation (GI): Soft to palpation and nontender Auscultation: normal bowel sounds Back/Spine/Pelvis Cervical Spine: cervical muscular tenderness and Cervical spine tenderness Thoracic/Lumbar Spine: lumbar spinal tenderness Extrem General: Yes no clubbing, cyanosis or edema Assessment and Plan Assessment & Plan (1) Paroxysmal atrial fibrillation: Comment: Myocardial perfusion study done on 06/13/2020 came out normal Echocardiogram done in April 2020 also came out normal, with normal left ventricular systolic function and ejection fraction estimated between 65-70%. 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 and this will be monitored closely Code(s): I48.0 - Paroxysmal atrial fibrillation Plan: Patient currently remains in sinus rhythm Continue Amiodarone 200 mg QD Continue Eliquis 5 mg BID for thromboembolism prophylaxis Follow up with cardiology as scheduled (2) (HFpEF) heart failure with preserved ejection fraction: Code(s): I50.30 - Unspecified diastolic (congestive) heart failure Qualifiers: Heart failure chronicity: chronic Qualified Code(s): I50.32 - Chronic diastolic (congestive) heart failure Plan: Patient states that he was advised recently by cardiology that based on his recent echocardiogram, this is likely the reason for his recent increasing DOCKERY and have advised him that based on his past echocardiograms that he's had this for a while now and this has been gradually progressing Discussed that this is just another terminology for what we used to call diastolic heart failure Reinforced fluid restriction and continue Furosemide 20 mg QD He was also started on Jardiance 10 mg QD by cardiology last month to help reduce his risk of hospitalization but patient states that since he was started on Jardiance, he has been experiencing frequent painful bladder spasms and recurrent burning sensation on urination and he is considering discussing this with Dr. Macias and is thinking about coming off the medication Follow up with cardiology as scheduled (3) HTN (hypertension): Code(s): I10 - Essential (primary) hypertension Qualifiers: Hypertension type: essential hypertension Qualified Code(s): I10 - Essential (primary) hypertension Plan: Reinforced low sodium diet - goal is systolic BP of at least 140 to 150 mm or less Continue Amlodipine 10 mg QD Patient is reminded to continue monitoring his blood pressure regularly and to call if his systolic BP stays elevated at more than 150 mm consistently (4) Hyperlipidemia: Code(s): E78.5 - Hyperlipidemia, unspecified Qualifiers: Hyperlipidemia type: mixed hyperlipidemia Qualified Code(s): E78.2 - Mixed hyperlipidemia Plan: Results of his labs done at the [place] last month reviewed and discussed with patient Reinforced low cholesterol diet Continue Atorvastatin 20 mg QD Will recheck his labs and fasting lipids in 6 months for follow-up - have advised patient previously that instead of getting 2 separate sets of labs done within days of each other yearly in the fall, we will continue to have him do his labs at the [place] in the fall and will shift our follow up labs to spring time, to be done before his appt in the spring and this way, we can try to spread them out and he will be monitored regularly and timely (5) Acquired hypothyroidism: Code(s): E03.9 - Hypothyroidism, unspecified 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 His TFTs on his recent labs done at the [place] last month are now normal He started taking Levothyroxine 50 mcg QD back on 02/19/23 and is now at 75 mcg QD - advised that as his TFTs are now normal, we will just continue him on his current Levothyroxine 75 mcg QD (Rx refilled) Will recheck his TFTs in 6 months for follow up (6) Chronic kidney disease, stage II (mild): Code(s): N18.2 - Chronic kidney disease, stage 2 (mild) Plan: Stable - will to monitor GFR and renal function regularly (7) Neck pain: Code(s): M54.2 - Cervicalgia Plan: Cervical spine x-rays done a few months ago revealed (+) moderate hypertrophic arthropathy right C3-C4, C4-C5, C5-C6 and C6-C7 facet joints Has been referred to physical therapy for further management previously; goes to PT when his neck starts to bother him a lot (pain and stiffness) (8) Pulmonary nodules: Code(s): R91.8 - Other nonspecific abnormal finding of lung field Plan: Were seen incidentally on chest CT done back in May 2020 - his pulmonary nodules were all less than 3 mm in size and as he has no increased risk factors, no follow up CT is indicated Patient is currently asymptomatic from pulmonary perspective His most recent chest x-rays done in January 2023 revealed no acute findings (9) Vitamin B12 deficiency: Code(s): E53.8 - Deficiency of other specified B group vitamins Plan: Corrected when last checked late last year - will continue to monitor Vitamin B12 level regularly (10) Vitamin D deficiency: Code(s): E55.9 - Vitamin D deficiency, unspecified Plan: Continue Vitamin D3 1000 units QD (11) Chronic gastritis without bleeding: Comment: S/P repeat EGD and colonoscopy with Dr. Bernal in July 2018 - still has chronic active gastritis but H pylori was reportedly negative Repeat EGD in March 2022 revealed (+) Castillo's esophagitis Code(s): K29.50 - Unspecified chronic gastritis without bleeding Qualifiers: Gastritis type: unspecified gastritis Qualified Code(s): K29.50 - Unspecified chronic gastritis without bleeding Plan: Most recent EGD in March 2022 revealed (+) Castillo's esophagitis Dietary restrictions reinforced Continue Omeprazole 20 mg QD (12) BPH w urinary obs/LUTS: Code(s): N40.1 - Benign prostatic hyperplasia with lower urinary tract symptoms; N13.8 - Other obstructive and reflux uropathy Plan: Continue Tamsulosin 0.4 mg QD and Finasteride 5 mg QD PSA was at 1.00 when last checked in January 2023 Follow up with urology as scheduled (13) Overweight (BMI 25.0-29.9): Code(s): E66.3 - Overweight Plan: Reinforced diet/exercise as tolerated/lose weight Plan Follow up in 6 months Orders: Orders Comprehensive [place]. Panel Fast 6 Months E78.00 - Pure hypercholesterolemia, unspecified Lipid Panel 6 Months E78.00 - Pure hypercholesterolemia, unspecified Vitamin D 25-OH Total 6 Months E55.9 - Vitamin D deficiency, unspecified UA CC w/rflx Micro + Cult 6 Months R30.0 - Dysuria B Type Natriuretic Peptide 6 Months I50.9 - Heart failure, unspecified Complete Blood Count Auto Diff 6 Months D64.9 - Anemia, unspecified Thyroid Stimulating Hormone 6 Months E03.9 - Hypothyroidism, unspecified Free T4 (Free Thyroxine) 6 Months E03.9 - Hypothyroidism, unspecified Vitamin B12 and Folate 6 Months E53.8 - Deficiency of other specified B group vitamins Medications: Changed From levothyroxine (Synthroid) 75 mcg PO DAILY To levothyroxine 75 mcg PO DAILY 90 days 90 tabs 3RF Coding Level of Care Code Est Pt Level 4 (95203) Diagnoses Paroxysmal atrial fibrillation I48.0 Chronic heart failure with preserved ejection fraction I50.32 Heart failure chronicity: chronic Essential hypertension I10 Hypertension type: essential hypertension Mixed hyperlipidemia E78.2 Hyperlipidemia type: mixed hyperlipidemia Acquired hypothyroidism E03.9 Chronic kidney disease, stage II (mild) N18.2 Neck pain M54.2 Pulmonary nodules R91.8 Vitamin B12 deficiency E53.8 Vitamin D deficiency E55.9 Chronic gastritis without bleeding, unspecified gastritis type K29.50 Gastritis type: unspecified gastritis BPH w urinary obs/LUTS N40.1; N13.8 Overweight (BMI 25.0-29.9) E66.3 Additional Codes KENNY-7 Assessment Billing - KENNY-7 Assessment Tool: KENNY-7 Assessment 92883 ([id number])
== END 2023-09-16 11:46 | disposition home or self-care (01) ==
PROVIDERS: PCP Internal Medicine; Visit Provider Internal Medicine
DX: I48.0 Paroxysmal atrial fibrillation (principal); I50.32 Chronic diastolic (congestive) heart failure; I12.9 Hypertensive chronic kidney disease with stage 1 through stage 4 chronic kidney disease, or unspecified chronic kidney disease; E78.2 Mixed hyperlipidemia; E03.9 Hypothyroidism, unspecified; N18.2 Chronic kidney disease, stage 2 (mild); M54.2 Cervicalgia; R91.8 Other nonspecific abnormal finding of lung field; E53.8 Deficiency of other specified B group vitamins; E55.9 Vitamin D deficiency, unspecified; K29.50 Unspecified chronic gastritis without bleeding; N40.1 Benign prostatic hyperplasia with lower urinary tract symptoms; N13.8 Other obstructive and reflux uropathy; E66.3 Overweight
CPT/HCPCS: 99214

== ENCOUNTER 2023-11-11 09:35 | Outpatient (AMB) | payer MEDICARE, SELFPAY ==
--- NOTE | 2023-11-11 09:56 | MHC.OFFVIS ---
Vital Signs 11/11/23 09:57 Height 5 ft 6 in Weight 158 lb 11.725 oz BMI 25.6 BP 116/68 Blood Pressure Location Lt brachial Position Sitting Pulse 45 L Intake Visit Reasons: 3 mth f/up Intake Note: 3 month follow-up with ekg hearts good Machine Room Operator Required: No Allergies amoxicillin [Augmentin] Allergy (Unknown, Verified 09/16/23 11:21) Unknown clavulanic acid [Augmentin] Allergy (Unknown, Verified 09/16/23 11:21) unknown raw cherries Allergy (Severe, Uncoded 09/16/23 11:21) anaphylaxis flores Allergy (Unknown, Uncoded 09/16/23 11:21) anaphalyxis Medication List - Last Reconciled 11/11/23 by Ricky Macias MD amiodarone 200 mg PO DAILY 90 days amlodipine 10 mg PO DAILY apixaban (Eliquis) 5 mg PO BID atorvastatin 20 mg PO BEDTIME finasteride 5 mg PO DAILY furosemide 20 mg PO DAILY levothyroxine 75 mcg PO DAILY 90 days omeprazole 20 mg PO DAILY tamsulosin 0.4 mg PO BEDTIME 30 days HPI Comments Details: Dima comes for follow-up. Continues to have exertional shortness of breath especially when he is walking up an incline. However he continues to play golf and enjoy it. Is limited with exertional shortness of breath but denies any worsening. Denies any orthopnea, PND, worsening leg edema, abdominal distension. Could not tolerate Jardiance therapy with urinary symptoms. He would stopped taking it at this point in time. Continues with Lasix. No prolonged irregular heartbeat. He says heart rate at rest his at about 50 beats per minute him when he plays golf it goes up to 80 beats per minute. He denies any lightheadedness, syncope. No bleeding issues or neurologic events. Blood pressures been generally well controlled with systolic blood pressure between 115 to 125 mm Hg [facility] Medical History (HFpEF) heart failure with preserved ejection fraction Sick sinus syndrome Acquired hypothyroidism Diastolic dysfunction Retention of urine Angioedema Acute bacterial prostatitis Prostatitis Hearing aid worn Atrial fibrillation Pulmonary nodules Hyperkalemia Overweight (BMI 25.0-29.9) Vitamin D deficiency Vitamin B12 deficiency Chronic kidney disease, stage II (mild) Chronic gastritis without bleeding Sinus bradycardia Right bundle branch block (RBBB) determined by electrocardiography Hyperlipidemia HTN (hypertension) History of cardiomyopathy History of congestive heart failure Paroxysmal atrial fibrillation CAD (coronary artery disease) On amiodarone therapy Surgical History Hx of ventral hernia repair Hx of hand surgery History of prostate surgery Hx of colostomy History of colon resection Hx of knee surgery Hx of colonoscopy Hx of endoscopy History of radiofrequency ablation procedure for cardiac arrhythmia History of cardioversion Family History Father No problems noted. Mother CVD (cardiovascular disease) CHF (congestive heart failure) Social History Household Members: Spouse Housing: House Do you presently have visiting nurse or other home services: Yes Alcohol intake: current Alcohol intake frequency: holidays/special occasions only Alcohol type: wine Comment: pt refuses bed alarm Patient Tobacco Use Status: Never used Tobacco e-Cigarette/Vaping Use: Never Used Second Hand Smoke Exposure: No service: Yes Current occupational status: retired Cognitive needs: No Hearing needs: Yes Vision needs: Yes Review of Systems Const Denies chills, Denies fatigue, Denies fever(s), Denies frequent falls, Denies weakness, Denies weight gain and Denies weight loss ENT Denies dizziness Card Denies chest pain, Denies leg edema, Denies lightheadedness, Denies palpitations, Denies dyspnea, Denies dyspnea on exertion, Denies orthopnea and Denies other (loss of consciousness) Resp Denies cough, Denies dyspnea and Denies dyspnea on exertion GI Denies hematochezia and Denies change in stool character Musc Denies abnormal gait, Denies muscle weakness, Denies numbness, Denies radiating pain into limb and Denies tingling Neuro Denies abnormal gait, Denies dizziness, Denies frequent falls, Denies numbness, Denies tingling and Denies weakness Endo Denies fatigue and Denies palpitations Physical Exam Vital Signs: Last Vital Signs Pulse 45 L 11/11/23 09:57 BP 116/68 11/11/23 09:57 BMI result Body Mass Index 25.6 Const General: cooperative, comfortable, no acute distress, alert and awake Nutritional Appearance: overweight Orientation/consciousness: patient oriented x3 Limitations: no limitations Neck Neck: Yes trachea midline, Yes supple and Yes no JVD (Positive AJR) Resp Effort & Inspection: normal respiratory effort Auscultation: clear to auscultation bilaterally Cardio Jugular venous distension: no JVD Palpation: normal PMI Rate: bradycardic Rhythm: regular rhythm Heart sounds: S1 normal heart sound present, S2 normal heart sound present, no click, no gallops, no murmurs and Other heart sounds present (S4 present) GI Auscultation: normal bowel sounds Skin General skin exam: no rashes or lesions noted Neuro General: patient oriented x3 and no focal motor deficits Extrem General: No clubbing, No cyanosis and Yes edema Office Procedures EKG Details: EKG shows sinus bradycardia at 45 beats per minute with right bundle-branch block with first-degree AV block with QS pattern in lead V1 V2 most likely lead placement. [id number], Complete Assessment & Plan Assessment & Plan (1) (HFpEF) heart failure with preserved ejection fraction: Code(s): I50.30 - Unspecified diastolic (congestive) heart failure Category: Medical Qualifiers: Heart failure chronicity: chronic Qualified Code(s): I50.32 - Chronic diastolic (congestive) heart failure Plan: Heart failure preserved ejection fraction, clinically euvolemic and well compensated on low-dose diuretic therapy. Could not tolerate Jardiance therapy. At this point time goals of therapy were discussed. He continues to have exertional shortness of breath NYHA class 2 but still continues to play golf. Most likely related to significant diastolic dysfunction contributed by sinus bradycardia. Advised daily weight monitoring avoidance of salt loading. Additional diuretics as need be. Continue rhythm control approach which has helped him significantly. Continue aggressive blood pressure control. (2) Sick sinus syndrome: Code(s): I49.5 - Sick sinus syndrome Category: Medical Plan: Sinus bradycardia with chronotropic incompetence although heart rate goes up to 80 beats per minute. This has been going for long-term. Given his worsening shortness of breath possibility of putting a pacemaker to improve chronotropic competence can be considered. Would require a stress test to evaluate his chronotropic competence. This was discussed with him. He will think about it. For now continue amiodarone therapy which is contributing but helping him significantly with maintenance of rhythm and avoidance of hospitalization. (3) Thoracic aortic aneurysm: Code(s): I71.20 - Thoracic aortic aneurysm, without rupture, unspecified Category: Medical Plan: Mild thoracic aortic aneurysm which is at current point time stable. Follow-up echocardiogram on a yearly basis. Avoid sudden strenuous isometric exercise. Continue aggressive blood pressure control. (4) Paroxysmal atrial fibrillation: Comment: Myocardial perfusion study done on 06/13/2020 came out normal Echocardiogram done in April 2020 also came out normal, with normal left ventricular systolic function and ejection fraction estimated between 65-70%. 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 and this will be monitored closely Code(s): I48.0 - Paroxysmal atrial fibrillation Category: Medical Plan: Paroxysmal atrial fibrillation longstanding which has been very difficult control. Currently on full dose amiodarone therapy which has helped him significantly. Had developed acquired hypothyroidism which has improved now with therapy. Continue monitor thyroid function every 3-6 months. Continue amiodarone therapy. Continue full oral anticoagulation, currently on Eliquis 5 mg b.i.d. which is tolerating. Quarterly renal function test and annual CBC should be pursued. Continue rhythm control approach. Follow up in the clinic in 3 months time, sooner p.r.n.. Thank you for allowing me to partake in his care Coding Level of Care Code Est Pt Level 4 (65439) Diagnoses Chronic heart failure with preserved ejection fraction I50.32 Heart failure chronicity: chronic Sick sinus syndrome I49.5 Thoracic aortic aneurysm I71.20 Paroxysmal atrial fibrillation I48.0 CPT Codes EKG - CPT: [id number], Complete ([id number])
[2023-11-11 09:57] VITALS: BP 116/68; PULSE 45; BMI 25.6
== END 2023-11-11 10:41 | disposition home or self-care (01) ==
PROVIDERS: PCP Internal Medicine; Visit Provider Internal Medicine Cardiovascular Disease
DX: I50.32 Chronic diastolic (congestive) heart failure (principal); I49.5 Sick sinus syndrome; I71.20 Thoracic aortic aneurysm, without rupture, unspecified; I48.0 Paroxysmal atrial fibrillation
CPT/HCPCS: 93010; 99214

== ENCOUNTER → 2023-11-11 09:35 | Outpatient (BNVA) | payer MEDICARE, SELFPAY | PROVIDERS: PCP Internal Medicine; Visit Provider Internal Medicine Cardiovascular Disease | DX: I50.32 Chronic diastolic (congestive) heart failure (principal); I49.5 Sick sinus syndrome; I71.20 Thoracic aortic aneurysm, without rupture, unspecified; I48.0 Paroxysmal atrial fibrillation; Z79.01 Long term (current) use of anticoagulants; Z79.899 Other long term (current) drug therapy | CPT/HCPCS: 93005; 99212 ==

== ENCOUNTER 2024-01-27 07:54 | Outpatient (REF) | payer MEDICARE, SELFPAY ==
--- NOTE | ~2024-01-27 | XR_ITS ---
EXAMINATION: XR CHEST CLINICAL INFORMATION: Respiratory disorder, unspecified. COMPARISON: Chest radiograph 02/07/2024. TECHNIQUE: 2 views of the chest were obtained. FINDINGS: Stable prominence of the cardiomediastinal silhouette. Slightly increased interstitial markings compared to recent prior without focal consolidation or pleural effusion. Unchanged mild intervertebral body height loss in the lower thoracic spine. 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 Severe degenerative changes of the right shoulder with decreased acromiohumeral interval suggesting rotator cuff disease. XR/XR chest 2V IMPRESSION: Slightly increased interstitial markings compared to recent prior raising the possibility of an infectious/inflammatory process of the small airways. No dense consolidation or pleural effusion. Electronically signed by: Jennifer Castillo MD 02/16/2024 11:41 AM EDT
[2024-01-27 08:09] LABS: MANUAL DIFF FLAG NO
[2024-01-27 08:18] LABS: Basophils Percent Auto 0.4 % (0-2); Eosinophils Absolute Auto 0.2 X10*3/uL (0.0-0.4); Eosinophils Percent Auto 2.3 % (0-4); Hematocrit 43.2 % (42.0-52.0); Hemoglobin 14.4 g/dl (14.0-18.0); Imm Gran Abs Auto 0.02 X10*3/uL (0.00-0.03); Imm Gran Pct Auto 0.3 % (0.0-0.4); Lymphocytes Absolute Auto 1.7 X10*3/uL (1.2-4.9); Lymphocytes Percent Auto 24.9 % (20-40); Mean Corpuscular HGB Conc 33.3 g/dl (31.0-36.0); Mean Corpuscular Hemoglobin 31.2 pg (27.0-33.0); Mean Corpuscular Volume 93.7 fL (80.0-98.0); Mean Platelet Volume 10.3 fL (9.4-12.4); Monocytes Absolute Auto 0.6 X10*3/uL (0.1-1.2); Monocytes Percent Auto 8.5 % (2-11); Neutrophils Absolute Auto 4.3 x10*3/uL (2.0-8.3); Neutrophils Percent Auto 63.6 % (45-73); Platelet Count 236 X10*3/uL (160-400); Red Blood Count 4.61 X10*6/uL (4.60-5.80); Red Cell Distribution Width 16.9 % (11.0-16.0); White Blood Count 6.8 X10*3/uL (4.8-10.8)
[2024-01-27 08:43] LABS: B Type Natriuretic Peptide 114 pg/mL (<100)
[2024-01-27 09:11] LABS: Alanine Aminotransferase 25 U/L (0-40); Alkaline Phosphatase 70 U/L (39-117); Anion Gap 13 (12-20); Aspartate Amino Transferase 27 U/L (5-37); Bilirubin Total 0.7 mg/dL (0.0-1.0); Blood Urea Nitrogen 17 mg/dL (9-16); Calcium 9.2 mg/dL (8.4-10.2); Carbon Dioxide 26 mmol/L (22-29); Chloride 107 mmol/L (96-108); Cholesterol 178 mg/dL (<200); Estimated Glomerular Filt Rate > 60; Glucose Fasting 99 mg/dL (60-99); HDL Cholesterol 78 mg/dL (>40); LDL Cholesterol Calculated 88 mg/dL (<100); Sodium 142 mmol/L (135-145); Total Protein 6.7 g/dL (6.5-8.0); Triglycerides 64 mg/dL (<150)
[2024-01-27 09:28] LABS: Free T4 (Free Thyroxine) 1.05 ng/dL (0.71-1.85); Thyroid Stimulating Hormone 1.93 uIU/mL (0.32-4.0); Vitamin D 25-OH Total 29.2 ng/mL (>30)
[2024-01-27 10:15] LABS: Appearance Urine Clear; Color Urine Yellow; Glucose Urine UA Negative (Negative); Leukocyte Esterase Urine Negative (Negative); Nitrite Urine Negative (Negative); Urine Blood Negative (Negative); Urine Ketones Negative (Negative); Urine Protein Negative (Neg-Trace)
== END 2024-01-27 07:55 | disposition home or self-care (01) ==
LOC: HO.XRAY 07:54
PROVIDERS: PCP Internal Medicine; Visit Provider Internal Medicine
DX: I10 Essential (primary) hypertension (principal); E55.9 Vitamin D deficiency, unspecified; R30.0 Dysuria; E78.00 Pure hypercholesterolemia, unspecified; E03.9 Hypothyroidism, unspecified; I50.9 Heart failure, unspecified; J98.8 Other specified respiratory disorders
CPT/HCPCS: 36415; 71046; 80053; 80061; 81003; 82306; 83880; 84439; 84443; 85025

== ENCOUNTER 2024-02-02 12:45 | Outpatient (AMB) | payer MEDICARE, SELFPAY ==
--- NOTE | 2024-02-02 12:46 | A.OFFVIS_ITS ---
Vital Signs 02/02/24 12:47 Height 5 ft 6 in Weight 158 lb 11.725 oz BMI 25.6 BP 120/78 Blood Pressure Location Lt brachial Position Sitting Pulse 54 Intake Visit Reasons: 3 mth f/up Intake Note: 3 month follow-up with ekg feeling good Reeling Machine Operator Required: No Allergies amoxicillin [Augmentin] Allergy (Unknown, Verified 09/16/23 11:21) Unknown clavulanic acid [Augmentin] Allergy (Unknown, Verified 09/16/23 11:21) unknown raw cherries Allergy (Severe, Uncoded 09/16/23 11:21) anaphylaxis flores Allergy (Unknown, Uncoded 09/16/23 11:21) anaphalyxis Medication List - Last Reconciled 02/02/24 by Ricky Macias MD amiodarone 200 mg PO DAILY 90 days amlodipine 10 mg PO DAILY apixaban (Eliquis) 5 mg PO BID atorvastatin 20 mg PO BEDTIME finasteride 5 mg PO DAILY furosemide 20 mg PO DAILY levothyroxine 75 mcg PO DAILY 90 days omeprazole 20 mg PO DAILY tamsulosin 0.4 mg PO BEDTIME 30 days HPI Comments Details: Dima comes for follow-up. Continues to have symptoms of exertional shortness of breath which says is now affecting his quality of life. He said sometimes walking up hill while golfing he will get significantly short of breath. However he notices heart rate still goes up to 80 beats per minute. He denies any worsening other heart failure symptoms of orthopnea, PND, leg edema. He was concerned about coming off oral anticoagulation therapy but since then says had 2 episodes of atrial fibrillation with the weekend both happening on Friday for which she then took extra amiodarone and heart rate settled down. His heart rate at rest is anywhere 45-50 beats per minute and with exercise goes up to only 80 beats per minute. He is taking all his medications. No lightheadedness, syncope. Blood pressures been well controlled. No overt bleeding complications or neurologic events. [facility] Medical History (HFpEF) heart failure with preserved ejection fraction Sick sinus syndrome Acquired hypothyroidism Diastolic dysfunction Retention of urine Angioedema Acute bacterial prostatitis Prostatitis Hearing aid worn Atrial fibrillation Pulmonary nodules Hyperkalemia Overweight (BMI 25.0-29.9) Vitamin D deficiency Vitamin B12 deficiency Chronic kidney disease, stage II (mild) Chronic gastritis without bleeding Sinus bradycardia Right bundle branch block (RBBB) determined by electrocardiography Hyperlipidemia HTN (hypertension) History of cardiomyopathy History of congestive heart failure Paroxysmal atrial fibrillation CAD (coronary artery disease) On amiodarone therapy Surgical History Hx of ventral hernia repair Hx of hand surgery History of prostate surgery Hx of colostomy History of colon resection Hx of knee surgery Hx of colonoscopy Hx of endoscopy History of radiofrequency ablation procedure for cardiac arrhythmia History of cardioversion Family History Father No problems noted. Mother CVD (cardiovascular disease) CHF (congestive heart failure) Social History Household Members: Spouse Housing: House Do you presently have visiting nurse or other home services: Yes Alcohol intake: current Alcohol intake frequency: holidays/special occasions only Alcohol type: wine Comment: pt refuses bed alarm Patient Tobacco Use Status: Never used Tobacco e-Cigarette/Vaping Use: Never Used Second Hand Smoke Exposure: No service: Yes Current occupational status: retired Cognitive needs: No Hearing needs: Yes Vision needs: Yes Review of Systems Const Denies chills, Denies fatigue, Denies fever(s), Denies frequent falls, Denies weakness, Denies weight gain and Denies weight loss ENT Denies dizziness Card Denies chest pain, Denies leg edema, Denies lightheadedness, Denies palpitations, Denies dyspnea, Denies dyspnea on exertion, Denies orthopnea and Denies other (loss of consciousness) Resp Denies cough, Denies dyspnea and Denies dyspnea on exertion GI Denies hematochezia and Denies change in stool character Musc Denies abnormal gait, Denies muscle weakness, Denies numbness, Denies radiating pain into limb and Denies tingling Neuro Denies abnormal gait, Denies dizziness, Denies frequent falls, Denies numbness, Denies tingling and Denies weakness Endo Denies fatigue and Denies palpitations Physical Exam Vital Signs: Last Vital Signs Pulse 54 02/02/24 12:47 BP 120/78 02/02/24 12:47 BMI result Body Mass Index 25.6 Const General: cooperative, comfortable, no acute distress, alert and awake Nutritional Appearance: overweight Orientation/consciousness: patient oriented x3 Limitations: no limitations Neck Neck: Yes trachea midline, Yes supple and Yes no JVD (Positive AJR) Resp Effort & Inspection: normal respiratory effort Auscultation: clear to auscultation bilaterally Cardio Jugular venous distension: no JVD Palpation: normal PMI Rate: bradycardic Rhythm: regular rhythm Heart sounds: S1 normal heart sound present, S2 normal heart sound present, no click, no gallops, no murmurs and Other heart sounds present (S4 present) GI Auscultation: normal bowel sounds Skin General skin exam: no rashes or lesions noted Neuro General: patient oriented x3 and no focal motor deficits Extrem General: No clubbing, No cyanosis and Yes edema Office Procedures EKG Details: EKG shows sinus bradycardia with first-degree AV block with right bundle-branch block with mild QT prolongation [id number], Complete Assessment & Plan Assessment & Plan (1) Sick sinus syndrome: Code(s): I49.5 - Sick sinus syndrome Category: Medical Plan: Patient with significantly increasing symptoms exertional shortness of breath limiting the quality of life. He has highly functional at this point time although he has self describe chronotropic incompetence. However this has been present for many years. However given his advancing diastolic dysfunction probably affecting him more at this point in time. Discussed with potentially performing a treadmill stress test to assess for chronotropic competence and if fails, can pursue dual-chamber pacemaker. Have taken the liberty to refer him to [facility] for further evaluation for the same. Currently requires amiodarone therapy to maintain rhythm, see below. Avoid other rate lowering medications. (2) (HFpEF) heart failure with preserved ejection fraction: Code(s): I50.30 - Unspecified diastolic (congestive) heart failure Category: Medical Qualifiers: Heart failure chronicity: chronic Qualified Code(s): I50.32 - Chronic diastolic (congestive) heart failure Plan: Heart failure preserved ejection fraction secondary to advanced diastolic dysfunction but preserved LV ejection fraction by last echocardiogram. Mohit quiñones doing well on low-dose furosemide therapy. Clinically does appear to be volume overloaded. Continue participate in physical activity as tolerated. Continue rhythm control approach which has helped him significantly. Continue aggressive blood pressure control which is currently well optimized. Daily weight monitoring avoidance of salt loading was discussed additional diuretics as need be. (3) Paroxysmal atrial fibrillation: Comment: Myocardial perfusion study done on 06/13/2020 came out normal Echocardiogram done in April 2020 also came out normal, with normal left ventricular systolic function and ejection fraction estimated between 65-70%. 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 and this will be monitored closely Code(s): I48.0 - Paroxysmal atrial fibrillation Category: Medical Plan: Highly symptomatic paroxysmal atrial fibrillation for long time. Has done extremely well with rhythm control approach. Has undergone couple of ablated approach is and he is not inclined to pursue further ablation due to noncardiac issues during the procedure. He has done well on amiodarone therapy. Manage his atrial fibrillation well. Advised to avoid stimulants such as alcohol and caffeine. Continue amiodarone therapy and will check for annual toxicity. Currently on full oral anticoagulation with Eliquis. Continue the same. Semi annual renal function test should be pursued. Will follow up in the clinic in 6 months time after an echocardiogram. Thank you for allowing me to partake in his care Orders: Orders CA echo transthoracic complete 5 Months I50.32 - Chronic diastolic (congestive) heart failure Coding Level of Care Code Est Pt Level 4 (88836) Diagnoses Sick sinus syndrome I49.5 Chronic heart failure with preserved ejection fraction I50.32 Heart failure chronicity: chronic Paroxysmal atrial fibrillation I48.0 CPT Codes EKG - CPT: [id number], Complete ([id number])
[2024-02-02 12:47] VITALS: BP 120/78; PULSE 54; BMI 25.6
== END 2024-02-02 13:30 | disposition home or self-care (01) ==
PROVIDERS: PCP Internal Medicine; Visit Provider Internal Medicine Cardiovascular Disease
DX: I49.5 Sick sinus syndrome (principal); I50.32 Chronic diastolic (congestive) heart failure; I48.0 Paroxysmal atrial fibrillation
CPT/HCPCS: 93010; 99214

== ENCOUNTER → 2024-02-02 12:45 | Outpatient (BNVA) | payer MEDICARE, SELFPAY | PROVIDERS: PCP Internal Medicine; Visit Provider Internal Medicine Cardiovascular Disease | DX: I50.32 Chronic diastolic (congestive) heart failure (principal); I48.0 Paroxysmal atrial fibrillation; I49.5 Sick sinus syndrome; R94.31 Abnormal electrocardiogram [ECG] [EKG]; I45.10 Unspecified right bundle-branch block; R00.1 Bradycardia, unspecified; I44.0 Atrioventricular block, first degree | CPT/HCPCS: 93005; 99212 ==

== ENCOUNTER 2024-02-19 11:20 | Outpatient (AMB) | payer MEDICARE, SELFPAY ==
--- NOTE | 2024-02-19 11:42 | A.OFFPC_ITS ---
Vital Signs 02/19/24 11:43 Height 5 ft 6 in Weight 159 lb BMI 25.7 BP 140/62 H Blood Pressure Location Lt brachial Position Sitting Pulse 52 Pulse Source Pulse Oximeter Pulse Oximetry (%) 96 Oxygen Delivery Method Room Air Intake Visit Reasons: right eye 03/01 Left eye 03/15 Dr Millan Hog Dropper Required: No Accompanied by: Self / Same As Patient Allergies amoxicillin [Augmentin] Allergy (Unknown, Verified 02/19/24 12:13) Unknown clavulanic acid [Augmentin] Allergy (Unknown, Verified 02/19/24 12:13) unknown raw cherries Allergy (Severe, Uncoded 02/19/24 12:13) anaphylaxis flores Allergy (Unknown, Uncoded 02/19/24 12:13) anaphalyxis Medication List - Last Reconciled 02/19/24 by Prem Green MD amiodarone 200 mg PO DAILY 90 days amlodipine 10 mg PO DAILY apixaban (Eliquis) 5 mg PO BID atorvastatin 20 mg PO BEDTIME finasteride 5 mg PO DAILY furosemide 20 mg PO DAILY levothyroxine 75 mcg PO DAILY 90 days omeprazole 20 mg PO DAILY tamsulosin 0.4 mg PO BEDTIME 30 days Tobacco use date assessed: 02/19/24 Fall risk assessment: No Falls in past year Last assessed Fall Risk: 02/19/24 Dental Screening Dental Screen Date: 02/19/24 Did you have a dental visit in the last 12 months?: No Did you have a dental problem in the last 6 months where you did not have access to dental care?: No Was dental information given to patient?: No HPI right eye 03/01 Left eye 03/15 Dr Millan HPI Details Patient comes in today at the request of Dr. Jorge Beatty for a preoperative medical examination for clearance for surgery He is currently scheduled for cataract extraction / phacoemusification with IOL of the right eye under MAC on 03/01/2024, followed by the same procedure on the left eye 2 weeks later on 03/15/2024 He would also like to have his regularly scheduled follow up visit next month combined with today's visit and cancel his upcoming appointment if possible Patient states that he feels okay but is concerned about his exertional dyspnea, which he states has been going on for a while now and he feels that this has progressed somewhat lately He notes that he will sometimes get significantly short of breath walking uphill while golfing but he has noticed that his heart rate, which normally is around 45 to 50 bpm at rest, still goes up to around 80 beats per minute during these times when he is feeling SOB He denies any symptoms of orthopnea, SOB at rest or leg swelling States that he's had 2 episodes of atrial fibrillation over the past weekend, both happening on Friday, for which he took an extra dose of his Amiodarone and his heart rate eventually settled down but overall, he has been doing well on rhythm control approach with Amiodarone for his atrial fibrillation for years He went to see cardiology for follow up a couple of weeks ago and per cardiology, his recent symptoms may be due to his gradually advancing diastolic dysfunction and recommended that he undergo a treadmill stress test to assess for chronotropic competence and if he fails his stress test, will then pursue dual-chamber pacemaker insertion He has also been referred to [facility] for EPS evaluation Patient currently denies any headaches or dizziness Denies any exertional chest pains No nausea/vomiting, no abdominal pain No change in bowel habits noted He also recalls seeing on his recent chest x-rays a comment about slightly increased interstitial markings raising the possibility of an infectious/inflammatory process of the small airways and is wondering if being on Amiodarone for years is starting to affect his lungs as Amiodarone can potentially cause pulmonary fibrosis He had his follow up labs done a few weeks ago - to discuss his results [facility] Medical History (Updated 02/19/24 @ 14:05 by Prem Green MD) Pure hypercholesterolemia Cervical disc disease Essential hypertension (HFpEF) heart failure with preserved ejection fraction Sick sinus syndrome Acquired hypothyroidism Diastolic dysfunction Retention of urine Angioedema Acute bacterial prostatitis Prostatitis Hearing aid worn Atrial fibrillation Pulmonary nodules Hyperkalemia Overweight (BMI 25.0-29.9) Vitamin D deficiency Vitamin B12 deficiency Chronic kidney disease, stage II (mild) Chronic gastritis without bleeding Sinus bradycardia Right bundle branch block (RBBB) determined by electrocardiography Hyperlipidemia HTN (hypertension) History of cardiomyopathy History of congestive heart failure Paroxysmal atrial fibrillation CAD (coronary artery disease) On amiodarone therapy Surgical History Hx of ventral hernia repair Hx of hand surgery History of prostate surgery Hx of colostomy History of colon resection Hx of knee surgery Hx of colonoscopy Hx of endoscopy History of radiofrequency ablation procedure for cardiac arrhythmia History of cardioversion Family History Father No problems noted. Mother CVD (cardiovascular disease) CHF (congestive heart failure) Social History Household Members: Spouse Housing: House Do you presently have visiting nurse or other home services: Yes Alcohol intake: current Alcohol intake frequency: holidays/special occasions only Alcohol type: wine Comment: pt refuses bed alarm Patient Tobacco Use Status: Never used Tobacco e-Cigarette/Vaping Use: Never Used Second Hand Smoke Exposure: No service: Yes Current occupational status: retired Cognitive needs: No Hearing needs: Yes Vision needs: Yes Questionnaire PHQ-9 Over the last 2 weeks, how often have you been bothered by any of the following problems? 1. Little interest or pleasure in doing things: not at all 2. Feeling down, depressed, or hopeless: not at all 3. Trouble falling or staying asleep, or sleeping too much: not at all 4. Feeling tired or having little energy: not at all 5. Poor appetite or overeating: not at all 6. Feeling bad about yourself - or that you are a failure or have let yourself or your family down: not at all 7. Trouble concentrating on things, such as reading the newspaper or watching television: not at all 8. Moving or speaking so slowly that other people could have noticed. Or the opposite - being so fidgety or restless that you have been moving around a lot more than usual: not at all 9. Thoughts that you would be better off or of hurting yourself in some way: not at all Total score: 0 Depression Screening Interpretation: Negative Depression Screening Done: Yes 19224 - PHQ-9 Billing: Yes Source: Developed by Drs. Lalo Trevino, Rosalina Faith, Tong Eaton and colleagues, with an educational mariah from [employer]. Thrive Questionnaire Date Thrive assessed: 02/19/24 I am a: Patient What is your living situation today?: I have a steady place to live Within the past 12 months, did the food you bought not last and you didn't have the money to get more?: Never true Within the past 12 months, did you worry whether your food would run out before you got money to buy more?: Never true Do you have trouble paying for medicines?: No Do you have trouble getting transportation to medical appointments?: No Do you have trouble paying your heating and electricity bill?: No Do you have trouble taking care of your child, family member or friend?: No Do you have trouble with day-to-day activities such as bathing, preparing meals, shopping, managing finances, etc.?: No Are you currently unemployed and looking for a job?: No Are you interested in more education?: No Please select the resources that you would like help with: None Currently or been in a relationship where the following occur: No concerns reported THRIVE Score: 0 AUDIT C Alcohol Use Questionnaire (AUDIT-C) 1. How often do you have a drink containing alcohol?: Never 2. How many drinks containing alcohol do you have on a typical day when you are drinking?: 1 or 2 3. How often do you have six or more drinks on one occasion?: Never Total Score: 0 Score Reviewed/Action Taken: Yes KENNY-7 AMB Questionnaire KENNY-7 Date KENNY - 7 assessed: 02/19/24 Feeling nervous, anxious, or on edge: 0 = Not at all Not being able to stop or control worryin = Not at all Worrying too much about different things: 0 = Not at all Trouble relaxin = Not at all Being so restless that it is hard to sit still: 0 = Not at all Becoming easily annoyed or irritable: 0 = Not at all Feeling afraid as if something awful might happen: 0 = Not at all Total KENNY-7 score (0-4 normal; 5-9 mild; 10-14 moderate; 15-21 severe): 0 Source: Developed by Drs. Lalo Trevino, Rosalina Faith, Tong Eaton and colleagues, with an educational mariah from [employer]. KENNY-7 Assessment Billing KENNY-7 Assessment Tool: KENNY-7 Assessment 36144 Review of Systems Const Denies chills, Denies fatigue, Denies fever(s) and Denies headache(s) ENT Denies dysphagia, Denies dizziness, Denies otalgia, Denies headache(s), Denies neck pain, Denies odynophagia and Denies sore throat Card Denies chest pain, Reports irregular heart rhythm (see HPI), Denies palpitations and Reports dyspnea on exertion (feels that this is increasing lately - see HPI) Resp Denies cough and Reports dyspnea on exertion (feels that this is increasing lately - see HPI) GI Denies abdominal pain, Denies constipation, Denies dysphagia, Denies heartburn, Denies diarrhea, Denies nausea, Denies odynophagia and Denies vomiting Denies dysuria (had burning sensation & bladder spasms due to Jardiance - Rx stopped since), Denies nocturia, Denies urinary frequency and Denies urinary urgency Musc Denies back pain, Denies neck pain and Reports stiffness Skin/Breast Denies rash Neuro Denies dizziness and Denies headache(s) Endo Denies fatigue and Denies palpitations Physical exam (Primary Care) Vital Signs: Last Vital Signs Pulse 52 02/19/24 11:43 BP 140/62 H 02/19/24 11:43 Pulse Ox 96 02/19/24 11:43 Oxygen Delivery Method Room Air 02/19/24 11:43 BMI result Body Mass Index 25.7 Tobacco/Smoking Status: Tobacco use Status Tobacco use date assessed 02/19/24 02/19/24 11:48 Patient Tobacco Use Status Never used Tobacco 02/19/24 11:48 e-Cigarette/Vaping Use Never Used 02/19/24 11:48 PHQ-9: PHQ-9 Score PHQ-9: Total score 0 02/19/24 11:48 Depression Screening Interpretation: Negative Thrive Assessment: Date of Thrive Assessment Date Thrive assessed 02/19/24 02/19/24 11:48 Currently or been in a relationship where the following occur: No concerns reported Const General: no acute distress and alert HENMT Ears: TM's normal bilaterally and EAC's normal Throat: Yes posterior oropharynx normal and Yes tonsils normal (no TP congestion noted) Neck Neck: Yes no lymphadenopathy and Yes tender Resp Auscultation: clear to auscultation bilaterally, no rales and no wheezes Cardio Rate: bradycardic Rhythm: regular rhythm Heart sounds: no murmurs GI Palpation (GI): Soft to palpation and nontender Auscultation: normal bowel sounds Back/Spine/Pelvis Cervical Spine: cervical muscular tenderness and Cervical spine tenderness Thoracic/Lumbar Spine: lumbar spinal tenderness Skin Rashes: no rashes Extrem General: Yes no clubbing, cyanosis or edema Results Reviewed Results Reviewed: Laboratory Tests 01/27/24 01/27/24 07:57 08:08 WBC 6.8 Hgb 14.4 Hct 43.2 Plt Count 236 Sodium 142 Potassium 4.0 Creatinine 0.96 Estimated GFR > 60 Fasting Glucose 99 Calcium 9.2 AST 27 ALT 25 B-Natriuretic Peptide 114 H Triglycerides 64 Cholesterol 178 LDL Cholesterol, Calc 88 HDL Cholesterol 78 25-OH Vitamin D Total 29.2 L TSH 1.93 Free T4 1.05 Ur Specific [place] 1.010 Urine Protein Negative Urine Glucose (UA) Negative Urine Blood Negative Urine Nitrite Negative Ur Leukocyte Esterase Negative Assessment and Plan Assessment & Plan (1) Preoperative examination: Code(s): Z01.818 - Encounter for other preprocedural examination Plan: Patient currently presents with acceptable risks for planned low cardiac-risk procedure Results of her labs done a few weeks ago reviewed and discussed with patient - results are attached above for reference He also had an EKG done at the cardiology office a few weeks ago on 02/02/2024, which showed sinus bradycardia with 1st degree AV block with occasional PVCs (2) Cataracts, bilateral: Code(s): H26.9 - Unspecified cataract Qualifiers: Cataract type: age-related Age-related cataract type: unspecified Qualified Code(s): H25.9 - Unspecified age-related cataract Plan: He is currently scheduled for cataract extraction / phacoemusification with IOL of the right eye under MAC on 03/01/2024, followed by the same procedure on the left eye 2 weeks later on 03/15/[address] Beatty (3) Paroxysmal atrial fibrillation: Comment: Myocardial perfusion study done on 06/13/2020 came out normal Echocardiogram done in April 2020 also came out normal, with normal left ventricular systolic function and ejection fraction estimated between 65-70%. 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 and this will be monitored closely Code(s): I48.0 - Paroxysmal atrial fibrillation Plan: Patient currently remains in sinus rhythm, although he reports that he's had a couple of episodes of atrial fibrillation over the past weekend for which he took an extra dose of his Amiodarone and his heart rate eventually settled back down Continue Amiodarone 200 mg QD - he has been doing well overll on rhythm control approach for a few years now Continue Eliquis 5 mg BID for thromboembolism prophylaxis Follow up with cardiology as scheduled (4) (HFpEF) heart failure with preserved ejection fraction: Code(s): I50.30 - Unspecified diastolic (congestive) heart failure Qualifiers: Heart failure chronicity: chronic Qualified Code(s): I50.32 - Chronic diastolic (congestive) heart failure Plan: He has been advised by cardiology in the past that this is likely the reason for his recurrent DOCKERY, which he feels has been gradually increasing lately Reinforced fluid restriction and continue Furosemide 20 mg QD He was also started on Jardiance 10 mg QD by cardiology a few months ago to help reduce his risk of hospitalization but he could not tolerate the medication (was experiencing frequent painful bladder spasms and recurrent burning sensation on urination while on Jardiance) and this was eventually discontinued Cardiology has recommended that he undergo a treadmill stress test to assess for chronotropic competence and if he fails his stress test, they will then try to pursue dual-chamber pacemaker insertion He has also been referred to [facility] for EPS evaluation Follow up with cardiology as scheduled (5) Essential hypertension: Code(s): I10 - Essential (primary) hypertension Plan: Reinforced low sodium diet - goal is systolic BP of at least 140 to 150 mm or less Continue Amlodipine 10 mg QD Patient is reminded to continue monitoring his blood pressure regularly and to call if his systolic BP stays elevated at more than 150 mm consistently (6) Pure hypercholesterolemia: Code(s): E78.00 - Pure hypercholesterolemia, unspecified Plan: Reinforced low cholesterol diet - have advised patient that his cholesterol levels are at goal on his recent labs Continue Atorvastatin 20 mg QD Will recheck his labs and fasting lipids in 6 months for follow-up (7) Acquired hypothyroidism: Code(s): E03.9 - Hypothyroidism, unspecified Plan: 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 His TFTs are normal on his recent labs Continue Levothyroxine 75 mcg QD Will recheck his TFTs in 6 months for follow up (8) Chronic kidney disease, stage II (mild): Code(s): N18.2 - Chronic kidney disease, stage 2 (mild) Plan: Stable - will continue to monitor his GFR and renal function regularly (9) Cervical disc disease: Code(s): M50.90 - Cervical disc disorder, unspecified, unspecified cervical region Plan: Cervical spine x-rays done a few months ago revealed (+) moderate hypertrophic arthropathy right C3-C4, C4-C5, C5-C6 and C6-C7 facet joints Has been referred to physical therapy for further management previously; goes to PT when his neck starts to bother him a lot (pain and stiffness) (10) Pulmonary nodules: Code(s): R91.8 - Other nonspecific abnormal finding of lung field Plan: These were seen incidentally on chest CT done back in May 2020 - his pulmonary nodules were all less than 3 mm in size and as he has no increased risk factors, no follow up CT is indicated Patient has been mostly asymptomatic from pulmonary perspective although he recently has been experiencing increasing exertional dyspnea, which is thought to be likely due to diastolic dysfunction His most recent chest x-rays done in January 2024 revealed no dense consolidation or pleural effusion but there are slightly increased interstitial markings compared to prior x-rays, raising the possibility of an infectious/inflammatory process of the small airways As he has been on Amiodarone for years, patient is concerned about the possibility of pulmonary fibrosis Have suggested that I can send him for PFTs at this time for further evaluation and to also refer him to pulmonary but he would like to hold off on these at present States that he would like to wait and repeat his chest x-rays in 6 months' time and if the changes have progressed by then, he will then agree to see pulmonary and get further evaluations done - repeat chest x-rays in 6 months ordered (11) Vitamin B12 deficiency: Code(s): E53.8 - Deficiency of other specified B group vitamins Plan: Corrected when last checked late last year - will continue to monitor his Vitamin B12 level regularly (12) Vitamin D deficiency: Code(s): E55.9 - Vitamin D deficiency, unspecified Plan: Continue Vitamin D3 1000 units QD (13) Chronic gastritis without bleeding: Comment: S/P repeat EGD and colonoscopy with Dr. Bernal in July 2018 - still has chronic active gastritis but H pylori was reportedly negative Repeat EGD in March 2022 revealed (+) Castillo's esophagitis Code(s): K29.50 - Unspecified chronic gastritis without bleeding Qualifiers: Gastritis type: unspecified gastritis Qualified Code(s): K29.50 - Unspecified chronic gastritis without bleeding Plan: Most recent EGD in March 2022 revealed (+) Castillo's esophagitis Dietary restrictions reinforced Continue Omeprazole 20 mg QD Follow up with GI as scheduled for continuing surveillance (14) BPH w urinary obs/LUTS: Code(s): N40.1 - Benign prostatic hyperplasia with lower urinary tract symptoms; N13.8 - Other obstructive and reflux uropathy Plan: Continue Tamsulosin 0.4 mg QD and Finasteride 5 mg QD PSA was at 1.00 when last checked in January 2023 Follow up with urology as scheduled (15) Overweight (BMI 25.0-29.9): Code(s): E66.3 - Overweight Plan: Reinforced diet/exercise as tolerated/lose weight Plan Patient presents with acceptable risks for planned low cardiac-risk procedure(s). He is currently medically optimized and has no contraindications to undergo planned cataract surgeries with Dr. Beatty next month Follow up in 6 months Orders: Orders Thyroid Stimulating Hormone 6 Months E03.9 - Hypothyroidism, unspecified Free T4 (Free Thyroxine) 6 Months E03.9 - Hypothyroidism, unspecified Complete Blood Count Auto Diff 6 Months D64.9 - Anemia, unspecified Lipid Panel 6 Months E78.00 - Pure hypercholesterolemia, unspecified UA CC w/rflx Micro + Cult 6 Months R30.0 - Dysuria B Type Natriuretic Peptide 6 Months I50.9 - Heart failure, unspecified XR chest 2V 6 Months R06.00 - Dyspnea, unspecified Comprehensive [place]. Panel Fast 6 Months E78.00 - Pure hypercholesterolemia, unspecified Vitamin D 25-OH Total 6 Months E55.9 - Vitamin D deficiency, unspecified Coding Level of Care Code Est Pt Level 4 (89550) Complex EM visit Add On G2211 Diagnoses Preoperative examination Z01.818 Age-related cataract of both eyes, unspecified age-related cataract type H25.9 Cataract type: age-related Age-related cataract type: unspecified Paroxysmal atrial fibrillation I48.0 Chronic heart failure with preserved ejection fraction I50.32 Heart failure chronicity: chronic Essential hypertension I10 Pure hypercholesterolemia E78.00 Acquired hypothyroidism E03.9 Chronic kidney disease, stage II (mild) N18.2 Cervical disc disease M50.90 Pulmonary nodules R91.8 Vitamin B12 deficiency E53.8 Vitamin D deficiency E55.9 Chronic gastritis without bleeding, unspecified gastritis type K29.50 Gastritis type: unspecified gastritis BPH w urinary obs/LUTS N40.1; N13.8 Overweight (BMI 25.0-29.9) E66.3 Additional Codes KENNY-7 Assessment Billing - KENNY-7 Assessment Tool: KENNY-7 Assessment 74200 ([id number])
[2024-02-19 11:43] VITALS: BP 140/62; PULSE 52; O2SAT 96; BMI 25.7
== END 2024-02-19 12:27 | disposition home or self-care (01) ==
PROVIDERS: PCP Internal Medicine; Visit Provider Internal Medicine
DX: Z01.818 Encounter for other preprocedural examination (principal); H25.9 Unspecified age-related cataract; I48.0 Paroxysmal atrial fibrillation; I50.32 Chronic diastolic (congestive) heart failure; I12.9 Hypertensive chronic kidney disease with stage 1 through stage 4 chronic kidney disease, or unspecified chronic kidney disease; E78.00 Pure hypercholesterolemia, unspecified; E03.9 Hypothyroidism, unspecified; N18.2 Chronic kidney disease, stage 2 (mild); M50.90 Cervical disc disorder, unspecified, unspecified cervical region; R91.8 Other nonspecific abnormal finding of lung field; E53.8 Deficiency of other specified B group vitamins; E55.9 Vitamin D deficiency, unspecified; K29.50 Unspecified chronic gastritis without bleeding; N40.1 Benign prostatic hyperplasia with lower urinary tract symptoms; N13.8 Other obstructive and reflux uropathy; E66.3 Overweight

== ENCOUNTER → 2024-02-19 11:20 | Outpatient (BNVA) | payer MEDICARE, SELFPAY | PROVIDERS: PCP Internal Medicine; Visit Provider Internal Medicine | DX: Z01.818 Encounter for other preprocedural examination (principal); H25.9 Unspecified age-related cataract; I48.0 Paroxysmal atrial fibrillation; I13.0 Hypertensive heart and chronic kidney disease with heart failure and stage 1 through stage 4 chronic kidney disease, or unspecified chronic kidney disease; N18.2 Chronic kidney disease, stage 2 (mild); I50.32 Chronic diastolic (congestive) heart failure; E78.00 Pure hypercholesterolemia, unspecified; E03.9 Hypothyroidism, unspecified; M50.90 Cervical disc disorder, unspecified, unspecified cervical region; R91.8 Other nonspecific abnormal finding of lung field; E53.8 Deficiency of other specified B group vitamins; E55.9 Vitamin D deficiency, unspecified; K29.50 Unspecified chronic gastritis without bleeding | CPT/HCPCS: 96127; 99212 ==

== ENCOUNTER 2024-02-20 08:46 | Outpatient (AMB) | payer MEDICARE, SELFPAY ==
--- NOTE | 2024-02-20 08:48 | A.OFFVIS_ITS ---
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 He is seen for the following urologic conditions - recurrent prostatitis - lower urinary tract symptoms - erectile dysfunction PVR 0 cc UA clear Significant improvement with combination medication Continues with finasteride to Friday, Friday, Friday Continuing with tamsulosin Willing to try stopping tamsulosin Six-month follow-up PVR and UA [facility] May 2021 had episode of prostatitis with 300 cc retention Does have mild hypospadias Recurrent prostatitis Seen in hospital in November for episode of prostatitis On those occasions he has become septic quickly with minimal prodrome BPH longstanding Prior TURP with Dr. Turcios when aged approximately 67 Current therapy combination Lower urinary tract symptoms Improvement on combination therapy - finasteride with tamsulosin Still with occasional nocturia Prior traumatic office cystoscopies PSA 06/17 1.99, 02/15 1.0 Erectile dysfunction Declining response to 50 mg sildenafil Increased to 100mg Trial daily tadalafil 5 mg - ineffective [facility] Medical History (Updated 02/19/24 @ 14:05 by Prem Green MD) Pure hypercholesterolemia Cervical disc disease Essential hypertension (HFpEF) heart failure with preserved ejection fraction Sick sinus syndrome Acquired hypothyroidism Diastolic dysfunction Retention of urine Angioedema Acute bacterial prostatitis Prostatitis Hearing aid worn Atrial fibrillation Pulmonary nodules Hyperkalemia Overweight (BMI 25.0-29.9) Vitamin D deficiency Vitamin B12 deficiency Chronic kidney disease, stage II (mild) Chronic gastritis without bleeding Sinus bradycardia Right bundle branch block (RBBB) determined by electrocardiography Hyperlipidemia HTN (hypertension) History of cardiomyopathy History of congestive heart failure Paroxysmal atrial fibrillation CAD (coronary artery disease) On amiodarone therapy Surgical History Hx of ventral hernia repair Hx of hand surgery History of prostate surgery Hx of colostomy History of colon resection Hx of knee surgery Hx of colonoscopy Hx of endoscopy History of radiofrequency ablation procedure for cardiac arrhythmia History of cardioversion Family History Father No problems noted. Mother CVD (cardiovascular disease) CHF (congestive heart failure) Social History Household Members: Spouse Housing: House Do you presently have visiting nurse or other home services: Yes Alcohol intake: current Alcohol intake frequency: holidays/special occasions only Alcohol type: wine Comment: pt refuses bed alarm Patient Tobacco Use Status: Never used Tobacco e-Cigarette/Vaping Use: Never Used Second Hand Smoke Exposure: No service: Yes Current occupational status: retired Cognitive needs: No Hearing needs: Yes Vision needs: Yes Review of Systems Const Denies chills and Denies fever(s) Card Reports no additional complaints and Denies syncope Resp Denies cough GI Denies abdominal pain and Denies heartburn Reports as per HPI and Denies change in libido Neuro Denies syncope Psych Denies change in libido Endo Denies change in libido Physical Exam Const General: cooperative, healthy appearing, comfortable and no acute distress Orientation/consciousness: patient oriented x3 HEENT Face and sinus: Yes normal facial exam Mouth: moist mucous membranes Neck Neck: Yes normal visual inspection, Yes full ROM and Yes trachea midline Chest Chest palpation & inspection: normal inspection of the chest Resp Effort & Inspection: normal respiratory effort, able to speak in complete sentences and no respiratory distress GI Inspection: Yes normal to inspection Back/Spine/Pelvis Cervical Spine: normal cervical lordosis Thoracic/Lumbar Spine: thoracic and lumbar spine normal to inspection Skin General skin exam: no rashes or lesions noted Neuro General: patient oriented x3, gait normal, tone normal and moves all extremities Extrem General: Yes normal to inspection and Yes capillary refill normal Office Procedures Post Void Residual Post Residual Void Post Void Residual (PVR): 0 [id number]-[id number] Void Residual by ultrasound Results AMB Urinalysis, Automated UA Leukoctes 0 Tsering/uL Last Edit by BLAIR Clark on 02/20/24 09:27 UA Nitrite Negative Last Edit by Iris Moura [facility] on 02/20/24 09:27 UA Urobilinogen 0.2 mg/dL Last Edit by Iris Moura [facility] on 02/20/24 09:2 7 UA Protein 0 mg/dL Last Edit by Iris Moura [facility] on 02/20/24 09:27 UA pH 6.0 Last Edit by Iris Moura [facility] on 02/20/24 09:27 UA Blood 0 Nixon/uL Last Edit by Iris Moura [facility] on 02/20/24 09:27 UA Specific [place] 1.020 Last Edit by Iris Moura [facility] on 02/20/24 09: 27 UA Ketone Negative Last Edit by Iris Moura [facility] on 02/20/24 09:27 UA Bilirubin 1 mg/dL Last Edit by Iris Moura [facility] on 02/20/24 09:27 UA Glucose 0 mg/dL Last Edit by Iris Moura [facility] on 02/20/24 09:27 Results Reviewed Results Reviewed: Laboratory Last Values Urine pH (Auto) 6.0 02/20/24 09:26 Specific [place] (Auto) 1.020 02/20/24 09:26 Urine Protein (Auto) 0 mg/dL 02/20/24 09:26 Glucose (UA)(Auto) 0 mg/dL 02/20/24 09:26 Urine Ketones (Auto) Negative 02/20/24 09:26 Urine Blood (Auto) 0 Nixon/uL 02/20/24 09:26 Urine Nitrite (Auto) Negative 02/20/24 09:26 Urine Bilirubin (Auto) 1 mg/dL 02/20/24 09:26 Urine Urobilinogen (Auto) 0.2 mg/dL 02/20/24 09:26 Leukocyte Esterase (Auto) 0 Tsering/uL 02/20/24 09:26 Assessment & Plan Assessment & Plan (1) Erectile dysfunction: Code(s): N52.9 - Male erectile dysfunction, unspecified Category: Medical Qualifiers: Erectile dysfunction type: vasculogenic Vasculogenic erectile dysfunction type: due to arterial insufficiency Qualified Code(s): N52.01 - Erectile dysfunction due to arterial insufficiency (2) BPH w urinary obs/LUTS: Code(s): N40.1 - Benign prostatic hyperplasia with lower urinary tract symptoms; N13.8 - Other obstructive and reflux uropathy Category: Medical Plan Six-month follow-up PVR Orders: Orders AMB Urinalysis Automated Today Z13.9 - Encounter for screening, unspecified Patient Instructions: Imaging studies, laboratory and physical exam results were discussed and reviewed in detail. No major barriers to patient understanding were identified. An opportunity to ask questions regarding the treatment plan was provided. All questions were answered. The patient expressed understanding and agreement with the above treatment plan. The patient is aware they should contact our office by phone for worsening of their current condition or the appearance of new urologic symptoms. Compliance is encouraged with any medications and followup testing that is ordered. It is a privilege to participate in the urologic care of your patient. If you have any questions or concerns regarding treatment for the above conditions, or other urologic issues, please do not hesitate to contact me. The office telephone contact is [phone]. This note is constructed using voice recognition software. While every effort has been made to ensure accuracy sheep killer errors may have been included. Yours sincerely, Dr Jeff Hdz MD, PÉREZ [facility] - Urology Providers of Expert, Compassionate Care for the Genitourinary System Coding Level of Care Code Est Pt Level 3 (40337) Diagnoses Erectile dysfunction due to arterial insufficiency N52.01 Erectile dysfunction type: vasculogenic Vasculogenic erectile dysfunction type: due to arterial insufficiency BPH w urinary obs/LUTS N40.1; N13.8 CPT Codes Post Residual Void - PVR CPT Code: 14276-Dfua Void Residual by ultrasound ([id number])
== END 2024-02-20 09:49 | disposition home or self-care (01) ==
PROVIDERS: PCP Internal Medicine; Visit Provider Urology
DX: N52.01 Erectile dysfunction due to arterial insufficiency (principal); N40.1 Benign prostatic hyperplasia with lower urinary tract symptoms; N13.8 Other obstructive and reflux uropathy; Z13.9 Encounter for screening, unspecified
CPT/HCPCS: 99213

== ENCOUNTER → 2024-02-20 08:46 | Outpatient (BNVA) | payer MEDICARE, SELFPAY | PROVIDERS: PCP Internal Medicine; Visit Provider Urology | DX: N40.1 Benign prostatic hyperplasia with lower urinary tract symptoms (principal); N13.8 Other obstructive and reflux uropathy; N52.01 Erectile dysfunction due to arterial insufficiency | CPT/HCPCS: 51798; 81003; 99212 ==

== ENCOUNTER 2024-03-01 07:18 | Day surgery (SDC) | payer MEDICARE, SELFPAY ==
[2024-02-24 07:36] VITALS: BMI 25.7
--- NOTE | 2024-02-25 13:06 | HO.ANESPROP2 ---
HPI - Anesthesia Eval Consult details Narrative: 88yo M for Right Cataract Extraction IOL Insertion PCP Cleared - aware of recent [facility] [place]. Patient states that he feels okay but is concerned about his exertional dyspnea, which he states has been going on for a while now and he feels that this has progressed somewhat lately He notes that he will sometimes get significantly short of breath walking uphill while golfing but he has noticed that his heart rate, which normally is around 45 to 50 bpm at rest, still goes up to around 80 beats per minute during these times when he is feeling SOB He denies any symptoms of orthopnea, SOB at rest or leg swelling States that he's had 2 episodes of atrial fibrillation over the past weekend, both happening on Friday, for which he took an extra dose of his Amiodarone and his heart rate eventually settled down but overall, he has been doing well on rhythm control approach with Amiodarone for his atrial fibrillation for years He went to see cardiology for follow up a couple of weeks ago and per cardiology, his recent symptoms may be due to his gradually advancing diastolic dysfunction and recommended that he undergo a treadmill stress test to assess for chronotropic competence and if he fails his stress test, will then pursue dual-chamber pacemaker insertion He has also been referred to [facility] for EPS evaluation No previous cataract on record. [facility] Active Problems Active Problems: All Active Problems Pure hypercholesterolemia (Acute) Cervical disc disease (Acute) Essential hypertension (Acute) Cataracts, bilateral (Acute) Preoperative examination (Acute) (HFpEF) heart failure with preserved ejection fraction (Acute) Sick sinus syndrome (Acute) Acquired hypothyroidism (Acute) History of cardiomyopathy (Acute) Right foot pain (Acute) Thoracic aortic aneurysm (Acute) Erectile dysfunction (Acute) Skin lesion of back (Acute) Neck pain (Acute) Prostatitis (Acute) BPH w urinary obs/LUTS (Acute) Diastolic dysfunction (Acute) Retention of urine (Acute) Encounter for Medicare annual wellness exam (Acute) Angioedema (Acute) Hypospadias (Acute) Exertional chest pain (Acute) Pulmonary nodules (Acute) Hyperkalemia (Acute) Overweight (BMI 25.0-29.9) (Acute) Vitamin D deficiency (Acute) Vitamin B12 deficiency (Acute) Chronic kidney disease, stage II (mild) (Acute) Chronic gastritis without bleeding (Acute) Sinus bradycardia (Acute) Right bundle branch block (RBBB) determined by electrocardiography (Acute) Hyperlipidemia (Acute) HTN (hypertension) (Acute) Paroxysmal atrial fibrillation (Acute) CAD (coronary artery disease) (Acute) Past Medical History Medical History (Updated 02/19/24 @ 14:05 by Prem Green MD) Pure hypercholesterolemia Cervical disc disease Essential hypertension (HFpEF) heart failure with preserved ejection fraction Sick sinus syndrome Acquired hypothyroidism Diastolic dysfunction Retention of urine Angioedema Acute bacterial prostatitis Prostatitis Hearing aid worn Atrial fibrillation Pulmonary nodules Hyperkalemia Overweight (BMI 25.0-29.9) Vitamin D deficiency Vitamin B12 deficiency Chronic kidney disease, stage II (mild) Chronic gastritis without bleeding Sinus bradycardia Right bundle branch block (RBBB) determined by electrocardiography Hyperlipidemia HTN (hypertension) History of cardiomyopathy History of congestive heart failure Paroxysmal atrial fibrillation CAD (coronary artery disease) On amiodarone therapy Family History Family History Father No problems noted. Mother CVD (cardiovascular disease) CHF (congestive heart failure) Family history of problems with anesthesia: No Surgical History Surgical History Hx of ventral hernia repair Hx of hand surgery History of prostate surgery Hx of colostomy History of colon resection Hx of knee surgery Hx of colonoscopy Hx of endoscopy History of radiofrequency ablation procedure for cardiac arrhythmia History of cardioversion History of Problems with Anesthesia: No Social History Social History Household Members: Spouse Housing: House Do you presently have visiting nurse or other home services: Yes Alcohol intake: current Alcohol intake frequency: holidays/special occasions only Alcohol type: wine Comment: pt refuses bed alarm Patient Tobacco Use Status: Never used Tobacco e-Cigarette/Vaping Use: Never Used Second Hand Smoke Exposure: No Advance Directives Date on File: 04/27/08 service: Yes Current occupational status: retired Cognitive needs: No Hearing needs: Yes Vision needs: Yes Meds Allergies Allergy/AdvReac Type Severity Reaction Status Date / Time flores [cherries] Allergy Severe Anaphylaxis Verified 02/24/24 07:28 amoxicillin [Augmentin] Allergy Unknown Unknown Verified 02/20/24 08:49 clavulanic acid [Augmentin] Allergy Unknown unknown Verified 02/20/24 08:49 Home Medications ?Medication ?Instructions ?Recorded ?Confirmed ?Last Taken ?Type apixaban 5 mg tablet (Eliquis) 5 mg PO BID 06/12/20 02/24/24 04/06/22 History atorvastatin 20 mg tablet 20 mg PO BEDTIME 06/12/20 02/24/24 11/26/20 History omeprazole 20 mg capsule,delayed 20 mg PO DAILY 06/12/20 02/24/24 11/26/20 History release finasteride 5 mg tablet 5 mg PO DAILY 02/04/23 02/24/24 Unknown History Exam Height,Weight and Vital Signs: Height 5 ft 6 in Weight 72.121 kg Assessment and Plan Assessment Anesthesia Assessment: Chart Reviewed Final Anesthetic Review Family History of Problems with Anesthesia: No History of Problems with Anesthesia: No
[2024-03-01 08:15] VITALS: BP 153/50; PULSE 46; RESP 16; TEMP 36.6; O2SAT 97; BMI 25.9
[2024-03-01] MEDS: Tetracaine HCl/PF 0.5% Oph Sol 4 ML DROPS 1 DROP EYE-RIGHT (08:20)
[2024-03-01] MEDS: Cyclopentolate 1 % Ophth Sol 2 ML DRPBTL 1 DROP EYE-RIGHT ×3 (08:21→08:37)
[2024-03-01] MEDS: Tropicamide 1 % Ophth Sol 3 ML BTL 1 DROP EYE-RIGHT ×3 (08:23→08:39)
[2024-03-01] MEDS: Ketorolac Tromethamine 0.5% Op 10 ML DROPS 1 DROP EYE-RIGHT ×3 (08:25→08:41)
[2024-03-01] MEDS: Phenylephrine HCL 2.5% Oph SoL 2 ML BOTTLE 1 DROP EYE-RIGHT ×3 (08:27→08:43)
--- NOTE | 2024-03-01 09:46 | MHC.SHP ---
Pre-Procedural Eval Section A - 24 Hr Update-Section A only Date of Service: 03/01/24 The patient is an INPATIENT: No Changes since office visit: No Cold of Flu in the past 2 weeks, No New Medical Problems, No Changes in Medication and No Patient answered all questions The patient has been examined within 24 hours of the surgical procedure. The History & Physical has been completed within 30 days and I have reviewed it.: Yes Section B - Complete if H&P > 30 days Chief Complaint: Age-related nuclear cataract, right eye Allergies: Allergies Allergy/AdvReac Type Severity Reaction Status Date / Time flores [cherries] Allergy Severe Anaphylaxis Verified 03/01/24 08:46 amoxicillin [Augmentin] Allergy Unknown Unknown Verified 03/01/24 08:46 clavulanic acid [Augmentin] Allergy Unknown unknown Verified 03/01/24 08:46 Plan Diagnosis/Plan: Unchanged I have reviewed the history and physical and performed a pertinent physical examination on my patient. No changes have occurred unless specified. Time Spent With Patient Time: Total time managing care of this patient today ____ minutes.
--- NOTE | 2024-03-01 09:47 | HO.PNOPHT ---
Ophthalmology Procedure Procedure Date of Service: 03/01/24 Ophthalmology Viscoelastic: Healon Duet Dual Pack Pro Ophthalmology Lenses: IOL Acrysof MP - MA60AC (21.5) Procedure Notes: PREOPERATIVE DIAGNOSIS: Decreased visual acuity right eye secondary to cataract POSTOPERATIVE DIAGNOSIS: Same PROCEDURE: Right cataract extraction with intraocular lens insertion SURGEON: Jorge Maier M.D. ANESTHESIA: Topical ESTIMATED BLOOD LOSS: None COMPLICATIONS: None After obtaining informed consent, the patient was brought to the operating room suite and placed in the supine position. After adequate sedation per anesthesia, topical drops of Tetracaine were given to the right eye. The eye was then prepped and draped in the usual sterile fashion. The operating room microscope was then positioned over the operative eye and a lid speculum placed. A paracentesis was created. Viscoelastic was then instilled into the anterior chamber. A three plane incision was then created temporally, utilizing a 2.85 mm keratome. Capsulotomy forceps were then utilized to create a circular tear capsulotomy. Hydrodissection and hydrodelineation were carried out until adequate mobilization of the nucleus occurred. Phacoemulsification was then utilized to remove the dense central nucleus followed by removal of the cortical material utilizing the automated aspiration irrigation unit. Viscoelastic was instilled into the posterior capsular bag followed by placement of a posterior chamber intraocular lens without difficulty. The residual Viscoelastic was then removed utilizing the automated IA machine. The wound was checked and found to be watertight. The patient tolerated the procedure well and the lid speculum was removed. Intracameral injection of Vigamox 0.1 mL followed by a subtenon injection of Kenalog-40 0.2 mL were administered. The patient will be seen in the a.m.
[2024-03-01 10:19] VITALS: BP 153/68; PULSE 48; RESP 16; TEMP 36.1; O2SAT 97
== END 2024-03-01 10:26 | disposition home or self-care (01) ==
PROVIDERS: PCP Internal Medicine; Visit Provider Ophthalmology
PROC: (CPT 66985; principal; 2024-03-01 09:30)
DX: H25.11 Age-related nuclear cataract, right eye (principal); H52.4 Presbyopia; H04.123 Dry eye syndrome of bilateral lacrimal glands; H18.413 Arcus senilis, bilateral; I13.0 Hypertensive heart and chronic kidney disease with heart failure and stage 1 through stage 4 chronic kidney disease, or unspecified chronic kidney disease; I50.30 Unspecified diastolic (congestive) heart failure; N18.2 Chronic kidney disease, stage 2 (mild); I48.0 Paroxysmal atrial fibrillation; E03.9 Hypothyroidism, unspecified; K21.9 Gastro-esophageal reflux disease without esophagitis; E78.5 Hyperlipidemia, unspecified; Z79.01 Long term (current) use of anticoagulants; Z79.899 Other long term (current) drug therapy; Z88.8 Allergy status to other drugs, medicaments and biological substances; Z88.1 Allergy status to other antibiotic agents
CPT/HCPCS: 66984; J3301; V2630

== ENCOUNTER 2024-03-15 07:39 | Day surgery (SDC) | payer MEDICARE, SELFPAY ==
[2024-02-24 07:45] VITALS: BMI 25.7
--- OUTSIDE RECORDS SUMMARY | 2024-03-15 07:41 | XMS_ITS | Patient Health Record ---
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 Name Role Phone Peter GLASGOW [place] Primary Care Provider Unava Franck Cornejo Jr Unavailable ANA, CEMIL Unavailable Unavailable ALLERGIES Allergen (clinical drug ingredient) Drug/Non Drug Allergy documented on EMR Reaction Allergy Type Onset Date Status Romo Unknown Drug Allergy Active REASON FOR REFERRAL No Information MEDICATIONS Medication SIG (Take, Route, Frequency, Duration) Notes Start Date End Date Status amLODIPine Besy-Benazepril HCl 2.5-10 MG as directed Orally Active Apixaban 5 MG 1 tablet Orally Twic e a day for 30 day(s) Active EPINEPHrine 0.3 MG/0.3ML as directed Injection Active Finasteride 5 MG 1 tablet Orally Once a day for 30 day(s) Active Eliquis 10 MG ONE TABLET Orally on ce a day Active Atorvastatin Calcium 20 MG 1 tablet Oral ly Once a day Active Omeprazole 20 MG 1 capsule Orally Onc e a day 03/27/2011 Active Lisinopril 30 MG 1 tablet Orally Once a day Active Tamsulosin HCl 0.4 MG 1 capsule Orally O nce a day for 30 day(s) Active Dicyclomine HCl 10 MG 1 tablet Orally 2- 4 times a day Active Amiodarone HCl 200 MG 1 tablet Orally On ce a day Active IMMUNIZATIONS Vaccine Route Administration Date Status Comme nts Flu vaccine no Preserv 3 and > Unknown 02/08/2015 Admin istered Influenza Unknown 03/01/2022 Administered SOCIAL HISTORY Sex Assigned At : Social History Observation Description Sex Assigned At Unknown PROBLEMS Problem Type ICD Code Onset Dates Problem Status W/U Status Risk SNOMED Code Notes Problem Colon cancer screening (Z12.11) Active confirmed 840368569 Problem Epigastric pain (R10.13) Active confirmed 62010248 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 (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.01) Active confirmed 155633310 Problem Personal history of colonic polyps (Z86.010) Active confirmed 959454511 Problem Diverticulitis (K57.92) Active confirmed 731056206 Problem Gastroesophageal reflux disease with esophagitis (K21.0) Active confirmed 008973235 Problem Colon polyps (K63.5) Active confirmed 40945308 Problem GERD (gastroesophageal reflux disease) (K21.9) Active confirmed Gastroesophagea l reflux disease (646664170) Problem Gastroesophageal reflux disease, unspecified whether esophagitis present (K21.9) Active confirmed 757813452 PLAN OF TREATMENT Pending Test Test Name Order Date UPPER GI ENDOSCOPY, BIOPSY 03/27/2011 COLONOSCOPY WITH BIOPSY 03/27/2011 COLONOSCOPY REMOVAL OF LESION SNARE TECH NIPARAMJIT 03/27/2011 US ABD 03/15/2022 Future Test Test Name Order Date UPPER GI ENDOSCOPY 04/05/2015 COLONOSCOPY 04/05/2015 UPPER GI ENDOSCOPY 02/18/2018 COLONOSCOPY 02/18/2018 UPPER GI ENDOSCOPY 03/15/2022 Insurance Providers Payer Name Payer Address Payer Phone Subscriber Number Group Number Insured Name Patient Relationship to Insured Coverage Start Date Coverage End Date MEDICARE OF [place] [address] [place] [address] [id number] BRY FLANNERY Self - patient is the insured [facility] SUPP[employer] [address] [place] [address] [id number] BRY FLANNREY Self - patient is the insured MEDICAL (GENERAL) HISTORY Medical History History ICD Code hypertension elevated Cholesterol Atrial fibrillation BPH Dupuytren's contracture Vitamin D deficiency Chronic kidney disease stage II 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 pylori Colonoscopy 08/11 hyperplastic polyp, fol lowup optional based on age Surgical History Surgery Date(Month/Year) sigmoid resection left knee replacement right knee replacement cardioversion TURP cardiac ablation x2 hand surgery ventral hernia repair
[2024-03-15] MEDS: Tetracaine HCl/PF 0.5% Oph Sol 4 ML DROPS 1 DROP EYE-LEFT (08:46)
[2024-03-15 08:49] VITALS: BP 145/52; PULSE 46; RESP 16; TEMP 36.6; O2SAT 97; BMI 26.6
[2024-03-15] MEDS: Cyclopentolate 1 % Ophth Sol 2 ML DRPBTL 1 DROP EYE-LEFT ×3 (08:52→09:14)
[2024-03-15] MEDS: Ketorolac Tromethamine 0.5% Op 10 ML DROPS 1 DROP EYE-LEFT ×3 (08:55→09:17)
[2024-03-15] MEDS: Tropicamide 1 % Ophth Sol 3 ML BTL 1 DROP EYE-LEFT ×3 (08:58→09:18)
[2024-03-15] MEDS: Phenylephrine HCL 2.5% Oph SoL 2 ML BOTTLE 1 DROP EYE-LEFT ×3 (09:01→09:21)
--- NOTE | 2024-03-15 10:04 | MHC.SHP ---
Pre-Procedural Eval Section A - 24 Hr Update-Section A only Date of Service: 03/15/24 The patient is an INPATIENT: No Changes since office visit: No Cold of Flu in the past 2 weeks, No New Medical Problems, No Changes in Medication and No Patient answered all questions The patient has been examined within 24 hours of the surgical procedure. The History & Physical has been completed within 30 days and I have reviewed it.: Yes Section B - Complete if H&P > 30 days Chief Complaint: Age-related nuclear cataract, left eye Allergies: Allergies Allergy/AdvReac Type Severity Reaction Status Date / Time flores [cherries] Allergy Severe Anaphylaxis Verified 03/01/24 08:46 amoxicillin [Augmentin] Allergy Unknown Unknown Verified 03/01/24 08:46 clavulanic acid [Augmentin] Allergy Unknown unknown Verified 03/01/24 08:46 Plan Diagnosis/Plan: Unchanged I have reviewed the history and physical and performed a pertinent physical examination on my patient. No changes have occurred unless specified. Time Spent With Patient Time: Total time managing care of this patient today ____ minutes.
--- NOTE | 2024-03-15 10:05 | HO.PNOPHT ---
Ophthalmology Procedure Procedure Date of Service: 03/15/24 Ophthalmology Viscoelastic: Healon Duet Dual Pack Pro Ophthalmology Lenses: IOL Acrysof MP - MA60AC (20.5) Procedure Notes: PREOPERATIVE DIAGNOSIS: Decreased visual acuity left eye secondary to cataract POSTOPERATIVE DIAGNOSIS: Same PROCEDURE: Left cataract extraction with intraocular lens insertion SURGEON: Jorge Maier M.D. ANESTHESIA: Topical ESTIMATED BLOOD LOSS: None COMPLICATIONS: None After obtaining informed consent, the patient was brought to the operation room suite and placed in the supine position. After adequate sedation per anesthesia, topical drops of Tetracaine were given to the left eye. The eye was then prepped and draped in the usual sterile fashion. The operating room microscope was then positioned over the operative eye and a lid speculum placed. A paracentesis was created. Viscoelastic was then instilled into the anterior chamber. A three plane incision was then created temporally, utilizing a 2.85 mm keratome. Capsulotomy forceps were then utilized to create a circular tear capsulotomy. Hydrodissection and hydrodelineation were carried out until adequate mobilization of the nucleus occurred. Phacoemulsification was then utilized to remove the dense central nucleus followed by removal of the cortical material utilizing the automated aspiration irrigation unit. Viscoat elastic was instilled into the posterior capsular bag followed by placement of a posterior chamber intraocular lens without difficulty. The residual Viscoat elastic was then removed utilizing the automated IA machine. The wound was check and found to be watertight. The patient tolerated the procedure well and the lid speculum was removed. Intracameral injection of Vigamox 0.1 mL followed by a subtenon injection of Kenalog-40 0.2 mL were administered. The patient will be seen in the a.m.
[2024-03-15 10:32] VITALS: BP 152/66; PULSE 47; RESP 18; TEMP 36.2; O2SAT 98
== END 2024-03-15 11:10 | disposition home or self-care (01) ==
PROVIDERS: PCP Internal Medicine; Visit Provider Ophthalmology
PROC: (CPT 66985; principal; 2024-03-15 10:00)
DX: H25.12 Age-related nuclear cataract, left eye (principal); H52.4 Presbyopia; H04.123 Dry eye syndrome of bilateral lacrimal glands; H18.413 Arcus senilis, bilateral; I10 Essential (primary) hypertension; E03.9 Hypothyroidism, unspecified; I48.91 Unspecified atrial fibrillation; R00.1 Bradycardia, unspecified; Z79.01 Long term (current) use of anticoagulants; Z79.899 Other long term (current) drug therapy; Z88.8 Allergy status to other drugs, medicaments and biological substances
CPT/HCPCS: 66984; J2003; J3010; J3301; V2630

== ENCOUNTER → 2024-03-29 08:13 | Outpatient (REF) | payer MEDICARE, SELFPAY ==
--- NOTE | 2024-03-29 08:16 | CA_ITS ---
Acquisition Time: 2024-03-29 08:24:35 Total Exercise Time: 00:04:51 Test Indications: AFIB, RBBB Medications: SEE H Protocol: WALTER Max HR: 118 BPM 88% of Pred: 134 BPM Max BP: 170/060 mmHG Max Work Load: 6.8 METS Exercise stress test with exercise 4 min 51 sec of Walter protocol, achieving 79% MPHR, with moderate shortness of breath, no chest discomfort, with isolated PVCs, with normotensive response to exercise, without EKG changes meeting criteria for ischemia.Test reviewed with Dr Macias Referred By: Ricky Macias Overread By: SABINE BROTHERS
== END ==
LOC: HO.CARD 08:13
PROVIDERS: PCP Internal Medicine; Visit Provider Internal Medicine Cardiovascular Disease
DX: I49.5 Sick sinus syndrome (principal)
CPT/HCPCS: 93017

== ENCOUNTER → 2024-03-29 08:16 | Outpatient (BNV) | payer MEDICARE, SELFPAY | PROVIDERS: PCP Internal Medicine; Visit Provider Nurse Practitioner Family | DX: R06.02 Shortness of breath (principal); I49.3 Ventricular premature depolarization | CPT/HCPCS: 93016; 93018 ==

== ENCOUNTER → 2024-06-08 08:40 | Outpatient (REF) | payer MEDICARE, SELFPAY ==
--- NOTE | 2024-06-08 08:46 | CA_ITS ---
Transthoracic Echocardiogram Patient (Last, First, Middle): Suhail Reece J Gender: Male Date of : 1935 Age: 88 Procedure Date: 06/08/2024 Procedure Type: Transthoracic Echocardiogram Location: OP Height: 162.56 cm Weight: 70.31 kg BSA: 1.76 m2 Heart Rate: bpm BP: 135 / 60 mmHg [employer] Workflow Consultant: ANDREW Referring MD: Ricky Macias MD Symptoms: I50.32 - Chronic diastolic (congestive) heart failure Study Quality: Fair ECG Rhythm: Sinus Conclusions: - The left ventricular systolic function is normal. The calculated ejection fraction is 63% by biplane method. - Evidence suggests grade III (severe) diastolic dysfunction. - Moderate biatrial enlargement. - No obvious valvular pathology seen on this study. 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 Findings Left Ventricle Mildly increased left ventricular cavity size. The left ventricular systolic function is normal. The calculated ejection fraction is 63% by biplane method. There is no evidence of regional wall motion abnormalities. Evidence suggests grade III (severe) diastolic dysfunction. Right Ventricle Normal right ventricular cavity size and systolic function. Atria Moderate biatrial enlargement. Aortic Valve There is a normal trileaflet aortic valve. There is no aortic valve stenosis. Trace to mild aortic regurgitation. Mitral Valve The mitral valve appears normal. There is no mitral valve regurgitation. There is no mitral valve stenosis. Pulmonic Valve There is trace to mild pulmonic valve regurgitation. Tricuspid Valve There is trace tricuspid valve regurgitation. There is no evidence of pulmonary hypertension. Great Vessels There is mild dilatation of the ascending aorta measuring 4.30 cm. Small plaque is seen in the sino tubular ridge. Venous The inferior vena cava is normal in size and collapses greater than 50% with inspiration. Pericardium/Pleural There is no evidence of pericardial effusion. Prior Study Comparison No significant change compared to prior study dated: 07/02/2023. Recommendations, Care & Conclusions No obvious valvular pathology seen on this study. Measurements 2D Linear Measurements IVSd: 1.19 0.6-0.9/0.6-1.0 cm LVIDd: 5.82 3.9-5.3/4.2-5.9 cm LVIDd Index: 3.31 2.4-3.2/2.2-3.1 cm/m2 LVIDs: 4.60 2.0-3.6 cm LVPWd: 1.06 0.7-1.1 cm LA Diam: 4.00 2.7-3.8/3.0-4.0 cm LAIDs Index: 2.27 1.5-2.3 cm/m2 LV Mass: 341.56 67-162/88-224 g LV Mass Index: 194.07 43-95/49-115 g/m2 LVOT Diam: 2.20 3.0+(-)1.3 cm 2D Systolic Function EF 4C: 61.60 >55% EF 2C: 62.40 >55% EF BiP: 62.70 >55% Mitral Valve MV Pk E: 0.65 MV PK A: 0.23 MV Decel Time: 304.00 E/A: 2.80 E'Lateral: 8.59 E'Medial: 5.11 E/E' Med: 12.70 E/E' Lat: 7.50 PHT: 89.00 MVA PHT: 2.47 Decel Frio: 2.13 Aortic Valve AoV Pk Murray: 1.76 AoV Mn Murray: 1.15 AoV VTI: 0.42 AoV Pk Grad: 12.00 Aov Mn Grad: 6.00 RHONDA Cont.VTI: 2.49 LVOT LVOT Pk Murray: 1.32 LVOT Mn Murray: 0.78 LVOT VTI: 0.28 LVOT Pk Grad: 7.00 LVOT Mn Grad: 3.00 LVOT Diam: 2.20 LVOT Area: 3.80 Diastolic Function MV Pk E: 0.65 MV Pk A: 0.23 E/A: 2.80 E'Medial: 5.11 E/E' Med: 12.70 E' Laterial: 8.59 E/E' Lat: 7.50 Right Ventricle TAPSE (mm): 23.90 TVS' Murray: 11.90 Tricuspid Valve TR Pk Murray: 2.76 TR Pk Grad: 30.00 RA Press: 3.00 RVSP: 33.00 Great Vessels Aorta Sinus of Valsalva: 3.82 2.0-3.[address] Ridge: 2.95 1.7-3.4 cm Ao Asc: 4.30 2.1-3.4 cm Updated in Other Vendor System with Status of Final Kenan Zelaya MD electronically signed on 06/09/2024 2:25:18 PM with status of Final
--- OUTSIDE RECORDS SUMMARY | 2024-06-08 08:59 | XMS_ITS | Encounter Summary ---
Author Name [facility] [place] Organization [facility] [place] [place] Address [address] [place] [id number] Care Team Providers Care Pattern Grader Cutter Name Role Phone FIDENCIO EDWARDS Primary Care [...] Douglas's Name Patient's Relationship to Policy Douglas [facility] MEDICARE SUPPLEMEN JOVANNA Jun 26, 2007 PLANMY [id number] ROSA FLANNERYJAGDISH PATIENT MEDICARE (WNR) MEDICARE (M) PART B May 26, 2007 PART B [id number] PRUDENCIOROSA JOHANN PATIENT MEDICARE (WNR) MEDICARE (M) PART A Dec 24, 2002 PART A [id number] PRUDENCIO,ROSA WILLS PATIENT Selected Encounter This section includes the information on record at [place] for the Encounter. Date/Time Encounter Type Encounter Description Reason Provider Source Jun 18, 2023 10:04 AM FIT SPECTACLES MONOFOCAL OPTOMETRY ICD-10-CM Z46.0 Encounter for fit/adjst of spectacles and contact lenses BHAVANI CUBA IHE Encounter Template Text not used by [place] Assessments - Encounter Diagnoses This section includes the primary and secondary diagnoses documented for the Encounter. Date/Time Primary/Secondary Diagnosis Diagnosis Name Provider Source Jun 18, 2023 10:04 AM PRIMARY Encounter for fit/adjst of spectacles and contact lenses CAROLE,ANNIAMATTHEW HURST [place] [facility] [place] [facility] Plan of Treatment: Future Appointments (+ 6 months) and Future Tests (+/- 45 days) The Plan of Treatment section includes future care activities for the patient from all [place] treatmentfacilities. This section includes future appointments and future orders which are active, pending or scheduled. Future Appointments This section includes appointments that were scheduled to occur 6 months from the date of the Encounter, up to a maximum of 20 appointments. The data comes from all [place] treatment facilities. Appointment Date/Time Appointment Type Appointme nt Facility Name Aug 18, 2023 03:30 PM AMBULATORY - MEDICINE [facility] [place] [facility] Social History: Smoking Status (Most current) and Tobacco Use (All prior to encounter date) This section includes the most current, and the historical, smoking and tobacco- related health factors from the [facility] facility where the Encounter took place. Current Smoking Status This section includes the most current smoking, or tobacco-related health factor, from the [place] facility where the Encounter took place. Date/Time Current Smoking Status Comment Romana gregg Aug 01, 2022 10:30 AM VA-TOBACCO NEVER USED [place] [facility] [place] [facility] Tobacco Use History This section includes a history of the smoking, or tobacco-related health factors, that were collected on or before the date of the Encounter. The data comes from the [place] facility where the Encounter took place. Date/Time Smoking Status/Tobacco Use Comment F acility Jul 03, 2021 01:00 PM VA-TOBACCO NEVER USED [facility] [place] [facility] Jun 16, 2020 08:30 AM VA-TOBACCO NEVER USED [facility] [place] [facility] Dec 07, 2018 01:47 PM VA-TOBACCO NEVER USED [facility] [place] [facility] Dec 15, 2017 08:52 AM VA-TOBACCO NEVER USED [facility] [place] [facility] Jun 02, 2017 03:31 PM LIFETIME NON-TOBACCO USER [facility] [place] [facility] Jun 04, 2016 08:53 AM LIFETIME NON-TOBACCO USER [facility] [place] [facility] May 09, 2015 09:21 AM LIFETIME NON-TOBACCO USER . [facility] [place] [facility] Oct 27, 2012 10:50 AM LIFETIME NON-TOBACCO USER [facility] [place] [facility] Encounter Notes: All associated encounter notes This section contains the clinical notes associated to the Encounter. Date/Time Encounter Note(s) Provider Source Jun 18, 2023 10:04 AM OPTOMETRY NOTE: LOCAL TITLE: OPTOMETRY NOTE STANDARD TITLE: OPTOMETRY NOTE DATE OF NOTE: JUN 18, 2023@10:04 ENTRY DATE: JUN 18, 2023@10:04:48 AUTHOR: SAVANAH HUTCHINS COSIGNER: URGENCY: STATUS: COMPLETED OPTOMETRY NOTE Has ADDENDA Adjsted one pair of glasses and order 2 new pair. bif (hx size and seg ht) The quote provided below is for informational purposes only. Please verify prior to the creation of a purchase order. BRY FLANNERY 4162 RX INFORMATION OD +2.50 -1.00 X110 Add:+2.75 Pzm:0.00 Dir: Prz2:0.00 Dir2: OS +1.75 -1.75 X110 Add:+2.75 Pzm:0.00 Dir: Prz2:0.00 Dir2: FITTING INFORMATION FPD:64 NPD:61 Emery:R: L: SEG HT:R:16 L:16 Tint:None Shade:None VA Billable Items FRAME: SHAHRAM SORIAQUE SILVER [id number] Right Lens: POLY BIFOCAL FT28 1.586 POLY Left Lens: POLY BIFOCAL FT28 1.586 POLY KLEAR ANTI-REFLECTIVE COATING ctr (yes larger frame size and gold) The quote provided below is for informational purposes only. Please verify prior to the creation of a purchase order. BRY FLANNERY 4162 RX INFORMATION OD +4.00 -1.00 X110 Add:0.00 Pzm:0.00 Dir: Prz2:0.00 Dir2: OS +3.25 -1.75 X110 Add:0.00 Pzm:0.00 Dir: Prz2:0.00 Dir2: FITTING INFORMATION FPD:62.5 NPD:62.5 Emery:R: L: SEG HT:R: L: Tint:None Shade:None VA Billable Items FRAME: SHAHRAM CRAMER [id number] Right Lens: POLY SINGLE VISION 1.586 POLY Left Lens: POLY SINGLE VISION 1.586 POLY KLEAR ANTI-REFLECTIVE COATING /odilon/ SAVANAH HUTCHINS PAINTER SET Signed: 06/18/2023 10:05 Receipt Acknowledged By: 06/18/2023 15:26 /odilon/ ANNIA NUVANCE HEALTH TECHINICIAN 06/18/2023 ADDENDUM STATUS: COMPLETED PDS veterans' coordinator fit 1 FT*28 Bifocal eyeglasses 1 Computer/intermediate eyeglasses on 06/18/2023. OPT HT enteredconsult(s) as requested for provider signature. /odilon/ ANNIA NUVANCE HEALTH TECHINICIAN Signed: 06/18/2023 15:28 SAVANAH HUTCHINS [facility]
--- OUTSIDE RECORDS SUMMARY | 2024-06-08 08:59 | XMS_ITS | Encounter Summary ---
Author Name [facility] Address [address] [place] [address] Care Team Providers Care Filemaker Developer Name Role Phone FIDENCIO EDWARDS Primary Care [...] Douglas's Name Patient's Relationship to Policy Douglas [facility] MEDICARE SUPPLEMEN JOVANNA Jun 26, 2007 PLANMY [id number] ROSA FLANNERY PATIENT MEDICARE (WN) MEDICARE (M) PART B May 26, 2007 PART B [id number] ROSA FLANNERY PATIENT MEDICARE (WN) MEDICARE (M) PART A Dec 24, 2002 PART A [id number] ROSA FLANNERY JOHANN PATIENT Selected Encounter This section includes the information on record at [place] for the Encounter. Date/Time Encounter Type Encounter Description Reason Provider Source Jun 18, 2023 08:30 AM COMPRE OPH EXAM EST PT 1/> OPTOMETRY ICD-10-CM 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, bilateral MERHAR,BHAVANI B IHE Encounter Template Text not used by [place] Assessments - Encounter Diagnoses This section includes the primary and secondary diagnoses documented for the Encounter. Date/Time Primary/Secondary Diagnosis Diagnosis Name Provider Source Jun 27, 2023 02:59 PM PRIMARY Age-related nuclear cataract, bilateral MERHAR,BHAAVNI B [facility] Jun 27, 2023 02:59 PM SECONDARY Hypermetropia, bilateral MERHAR,BHAVANI B [facility] Plan of Treatment: Future Appointments (+ 6 months) and Future Tests (+/- 45 days) The Plan of Treatment section includes future care activities for the patient from all [place] treatmentfacilities. This section includes future appointments and future orders which are active, pending or scheduled. Future Appointments This section includes appointments that were scheduled to occur 6 months from the date of the Encounter, up to a maximum of 20 appointments. The data comes from all [place] treatment facilities. Appointment Date/Time Appointment Type Appointme nt Facility Name Aug 18, 2023 03:30 PM AMBULATORY - MEDICINE [facility] Social History: Smoking Status (Most current) and Tobacco Use (All prior to encounter date) This section includes the most current, and the historical, smoking and tobacco- related health factors from the [facility] facility where the Encounter took place. Current Smoking Status This section includes the most current smoking, or tobacco-related health factor, from the [facility] facility where the Encounter took place. Date/Time Current Smoking Status Comment Romana ity Aug 01, 2022 10:30 AM VA-TOBACCO NEVER USED [facility] Tobacco Use History This section includes a history of the smoking, or tobacco-related health factors, that were collected on or before the date of the Encounter. The data comes from the [facility] facility where the Encounter took place. Date/Time Smoking Status/Tobacco Use Comment F acility Jul 03, 2021 01:00 PM VA-TOBACCO NEVER USED [facility] Jun 16, 2020 08:30 AM VA-TOBACCO NEVER USED [facility] Dec 07, 2018 01:47 PM VA-TOBACCO NEVER USED [facility] Dec 15, 2017 08:52 AM VA-TOBACCO NEVER USED [facility] Jun 02, 2017 03:31 PM LIFETIME NON-TOBACCO USER [facility] Jun 04, 2016 08:53 AM LIFETIME NON-TOBACCO USER [facility] May 09, 2015 09:21 AM LIFETIME NON-TOBACCO USER . [facility] Oct 27, 2012 10:50 AM LIFETIME NON-TOBACCO USER [facility] Encounter Notes: All associated encounter notes This section contains the clinical notes associated to the Encounter. Date/Time Encounter Note(s) Provider Source Jun 18, 2023 08:02 AM OPTOMETRY NOTE: LOCAL TITLE: OPTOMETRY NOTE STANDARD TITLE: OPTOMETRY NOTE DATE OF NOTE: JUN 18, 2023@08:02 ENTRY DATE: JUN 18, 2023@08:02:49 AUTHOR: BHAVANI CUBA EXP COSIGNER: URGENCY: STATUS: COMPLETED 87 WHITE MALE NOT OR Last eye exam: 11/01/21 Reason for Visit/CC: patient here for a comprehensive eye exam. He reports vision in the left eye is worse but as long as he has both eyes open he hadn't noticed it much until recently. Sees Dr. Maier annually. He is considering having cataract surgery this year. Doesn't drive at night - drives. A little more difficulty reading; he's an avid reader. Wearing glasses from 2 years ago - bifocal from last year too high. OHx: cataracts OU refractive error OU (-) Pain: (-) ARELLANO: (-) Diplopia: (-) Flashes: (-) Floaters: (-) Amaurosis Fugax/Tia's: (-) Eye Injury: (-) Eye Surgery: (-) TBI (-) FOHx: MHx: Code Description E03.9 Hypothyroidism ([facility] [id number]) I50.30 Diastolic heart failure ([facility] [id number]) N41.1 Chronic prostatitis ([facility] [id number]) Z79.01 Long-term current use of anticoagulant ([facility] [id number]) R69. GI bleeding ([facility] [id number]) K21.9 Gastroesophageal reflux disease ([facility] [id number]) M54.5 Low back pain ([facility] [id number]) 799.9 A/N - shared care ([facility] [id number]) I48.0 Paroxysmal atrial fibrillation ([facility] [id number]) I10. Essential hypertension ([facility] [id number]) E78.00 Hypercholesterolemia ([facility] [id number]) F52.21 History of male erectile disorder ([facility] [id number]) Other: SYSTEMIC MEDICATIONS/OCULAR MEDICATIONS: Active and Recently Outpatient Medications (excluding Supplies): Active Outpatient Medications Status 1) APIXABAN 5MG TAB TAKE ONE TABLET BY MOUTH TWICE DAILY ACTIVE 2) ATORVASTATIN CALCIUM 20MG TAB TAKE ONE TABLET BY ACTIVE MOUTH EVERY DAY FOR CHOLESTEROL 3) FINASTERIDE 5MG TAB TAKE ONE TABLET BY MOUTH ONCE ACTIVE DAILY FOR PROSTATE 4) LEVOTHYROXINE NA (SYNTHROID) 75MCG TAB TAKE ONE ACTIVE TABLET BY MOUTH EVERY MORNING 30 MINUTES BEFORE BREAKFAST FOR THYROID TAKE ON AN EMPTY STOMACH WITH A FULL GLASS OF WATER 5) OMEPRAZOLE 20MG EC CAP TAKE TWO CAPSULES BY MOUTH ACTIVE EVERY MORNING 30 MINUTES BEFORE BREAKFAST FOR STOMACH ULCER 6) SILDENAFIL CITRATE 100MG TAB TAKE ONE TABLET BY MOUTH ACTIVE EVERY DAY NEEDED TAKE 1 HOUR PRIOR TO SEXUAL ACTIVITY 7) TAMSULOSIN HCL 0.4MG CAP TAKE ONE CAPSULE BY MOUTH ACTIVE ONCE DAILY Active Non-VA Medications Status 1) Non-VA AMIODARONE HCL (PACERONE) 200MG TAB 200MG BY ACTIVE MOUTH EVERY DAY 2) Non-VA AMLODIPINE BESYLATE 5MG TAB 5MG BY MOUTH ONCE ACTIVE DAILY 9 Total Medications ALLERGIES: AUGMENTIN, CHERRIES, LISINOPRIL LAST BP: 138/64 (02/19/2023 10:47) PERTINENT LABS: No data for HEMOGLOBIN A1C Current Rx with last BCVA: OD: +3.00 -1.00 x 110 20/25+2 OS: +1.75 -1.75 x 110 20/25-2 Add: +2.75 DVA ( )sc ( )cc OD 20/30+2 OS 20/50+2 Pupils: PERRL (-)APD EOM: Full all meridia OU, (-) pain/diplopia Confrontation Visual Hernandez: Full all meridia OU Subjective: OD +2.50 -1.00 x 110 20/25-1 OS +1.75 -1.75 x 100 20/40-1 Add: +2.75 int add +1.50 SLE: Lids/Lashes: clear OU Conjunctiva: white and quiet OU Corneas: whorl keratopathy OU Iris: flat and clear OU Anterior Chamber: deep and quiet OU Angles: open OU Lens: 2+ NS/1+ ACC OD, 3+ NS/1+ ACC OS TAP @ 8:22am Cardona OD 8 mm Hg OS 10 mm Hg Dilating Drops: 1 gtt 1% Tropicamide OU, 2.5% phenylephrine OU (Pt. ed. on side effects) Vitreous: Syneresis OU C/D (Size and Rim Description) OD 0.20 pink & healthy OS 0.20 pink & healthy Macula OD flat and clear OS flat and clear A/V: normal caliber OU Posterior Pole: clear OU Periphery: Flat and intact (-)holes, tears, detachments 360 OU Assessment/Plan: 1. Nuclear sclerosis cataracts OU, visually significant OS>OD. Discussed cataract surgery, pt would like to consider for later this year, declines consult. Monitor 2. hyperopia OU, regular astigmatism OU, presbyopia OU - order new bifocals and SV computer RTC 1 year or earlier PRN patient offered and declined printed medication list Medication Reconciliation: Outpatient: Has the patient been taking medications as documented in the EMLR? YES: The patient has been taking medications as documented in the EMLR. Essential Medication List for Review used to complete this medication reconciliation. INCLUDED IN THIS LIST: Alphabetical list of active outpatient prescriptions dispensed from this [facility] (local) and dispensed from another VA or [facility] facility (remote) as well as inpatient orders (local, pending and active), local clinic medications, locally documented non-VA medications, and local prescriptions that have or been discontinued in the past 90 days. - All changes in medications, including all non-VA/Herbal/OTC medications were entered into CPRS. - If there were any medications the patient should no longer take, they were discontinued. - The patient/caregiver was instructed to update this list, discard old lists, and take this list to the next appointment, whether with a VA or non-VA provider. Medication List: JLV Link Data on this list may not be complete. Please check JLV. Allergies/ADRs (Tool #5) FACILITY ALLERGY/ADR -------- No Remote Allergy/ADR Data available for this patient [facility] AUGMENTIN [facility] CHERRIES [facility] LISINOPRIL Med. Reconciliation (Tool #1) INCLUDED IN THIS LIST: Alphabetical list of active outpatient prescriptions dispensed from this [facility] (local) and dispensed from another [place] or [facility] facility (remote) as well as inpatient orders (local pending and active), local clinic medications, locally documented non-VA medications, and local prescriptions that have or been discontinued in the past 90 days. Non-VA Meds Last Documented On: Jul 03, 2021 NOTE The display of VA prescriptions dispensed from another VA or [facility] facility (remote) is limited to active outpatient prescription entries matched to National Drug File at the originating site and may not include some items such as investigational drugs, compounds, etc. NOT INCLUDED IN THIS LIST: Medications self-entered by the patient into personal health records (i.e. [employer]) are NOT included in this list. Non-VA medications documented outside this [place], remote inpatient orders (regardless of status) and remote clinic medications are NOT included in this list. The patient and provider must always discuss medications the patient is taking, regardless of where the medication was dispensed or obtained. Non-VA AMIODARONE HCL (PACERONE) 200MG TAB TAKE ONE TABLET BY MOUTH QDaily amiodarone 100mg and 200mg Non-VA AMLODIPINE BESYLATE 5MG TAB TAKE ONE TABLET BY MOUTH ONCE DAILY Medication prescribed by Non-VA provider. OUTPT APIXABAN 5MG TAB (Status = Active) TAKE ONE TABLET BY MOUTH TWICE DAILY Rx# [id number] Last Released: 03/25/23 Qty/Days Supply: Rx Expiration Date: 08/02/23 Refills Remainin OUTPT ATORVASTATIN CALCIUM 20MG TAB (Status = Active) TAKE ONE TABLET BY MOUTH EVERY DAY FOR CHOLESTEROL Rx# [id number] Last Released: 05/20/23 Qty/Days Supply: Rx Expiration Date: 08/02/23 Refills Remainin OUTPT FINASTERIDE 5MG TAB (Status = Active) TAKE ONE TABLET BY MOUTH ONCE DAILY FOR PROSTATE Rx# [id number] Last Released: 03/13/23 Qty/Days Supply: Rx Expiration Date: 08/02/23 Refills Remainin OUTPT LEVOTHYROXINE NA (SYNTHROID) 50MCG TAB (Status = Discontinued) TAKE ONE TABLET BY MOUTH EVERY MORNING 30 MINUTES BEFORE BREAKFAST TAKE ON AN EMPTY STOMACH WITH A FULL GLASS OF WATER Rx# [id number] Last Released: 02/19/23 Qty/Days Supply: Rx Expiration Date: 02/20/24 Refills Remainin Indication: FOR THYROID OUTPT LEVOTHYROXINE NA (SYNTHROID) 75MCG TAB (Status = Active) TAKE ONE TABLET BY MOUTH EVERY MORNING 30 MINUTES BEFORE BREAKFAST FOR THYROID TAKE ON AN EMPTY STOMACH WITH A FULL GLASS OF WATER Rx# [id number] Last Released: 04/10/23 Qty/Days Supply: 90 Rx Expiration Date: 04/07/24 Refills Remainin Indication: FOR THYROID OUTPT OMEPRAZOLE 20MG EC CAP (Status = Active) TAKE TWO CAPSULES BY MOUTH EVERY MORNING 30 MINUTES BEFORE BREAKFAST FOR STOMACH ULCER Rx# [id number] Last Released: 03/13/23 Qty/Days Supply: 180/90 Rx Expiration Date: 08/02/23 Refills Remainin Indication: FOR STOMACH ULCER OUTPT SILDENAFIL CITRATE 100MG TAB (Status = Active) TAKE ONE TABLET BY MOUTH EVERY DAY NEEDED TAKE 1 HOUR PRIOR TO SEXUAL ACTIVITY Rx# [id number] Last Released: 06/04/23 Qty/Days Supply: 11/22 Rx Expiration Date: 02/20/24 Refills Remainin OUTPT TAMSULOSIN HCL 0.4MG CAP (Status = Active) TAKE ONE CAPSULE BY MOUTH ONCE DAILY Rx# [id number] Last Released: 06/05/23 Qty/Days Supply: Rx Expiration Date: 03/13/24 Refills Remainin SUPPLIES PHARMACY TERMS AND POSSIBLE PATIENT ACTIONS INPT = [place] inpatient order IV = [place] intravenous medication OUTPT = [place] outpatient prescription PHARMACY POSSIBLE PATIENT TERMS EXPLANATION ACTIONS -------- -- ACTIVE A prescription that can be If you have refills, filled at the local [place] pharmacy. you may request a refill of this prescription from your [place] pharmacy. CLINIC A medication you received during If you have questions a visit to a [place] clinic or about this medication emergency department. contact your [place] healthcare team. DISCONTINUED A prescription your provider has Contact your [place] stopped. It is no longer healthcare team if you available to be sent to you or need more of this picked up at the [place] pharmacy medication. window. A prescription which is too old Contact your VA to fill. This does not refer to healthcare team if you the expiration date of the need more of this medication in the container. medication. NON-VA A medication that came from If this medication someplace other than a VA information is pharmacy. This may be a incorrect or out of prescription from either the VA date, please tell your or non VA providers that was VA healthcare team. filled outside the VA. Or, it may be an kjey-pow-mzhlnhq (OTC), herbal, dietary supplements or sample medication. ON HOLD An active prescription that will Contact your VA not be filled until pharmacy pharmacy when you need resolves the issue. more of this medication. PARKED An active prescription that will Contact your VA not be filled until the patient pharmacy when you need requests it. this medication. PENDING This prescription order has been If you have been sent to the pharmacy for review instructed to start and is not ready yet. this medication now, contact your VA pharmacy. SUSPENDED An active prescription that is Contact your VA not scheduled to be filled yet. pharmacy if you need You should receive it before this medication now. you run out. ====== /odilon/ BHAVANI CUBA OD Director Of Testing Signed: 06/18/2023 09:08 BHAVANI CUBA [facility]
--- OUTSIDE RECORDS SUMMARY | 2024-06-08 08:59 | XMS_ITS | Continuity of Care Document ---
Author Name [facility] Organization [facility] Care Team Providers Care Reject Opener And Filler Name Role Phone [facility] Unavailable Unavailable Problems Combined list of problems from Department of Defense and Veterans Affairs facilities. It does not include entries that were removed or entered in error. Problem Status Onset Date Problem Type Date of Resolution Comments Source Chronic prostatitis Active Condition [facility] Diastolic heart failure Active Condition [facility] Essential hypertension (SNOMED CT 55340463) Active Condition [facility] Exposure to potentially hazardous substance Active Condition Aug 06, 2023 Entered By: RAVEN MADRID EN A Comment: Connect Snomed Code to ICD 10 Code refer to note dated 02/19/23 [facility] Gastroesophageal reflux disease Active Condition [facility] History of male erectile disorder (SNOMED CT 307455775) Active Condition [facility] Hypercholesterolemia (SNOMED CT 37344253) Active Condition [facility] Hypothyroidism Active Condition [facility] Long-term current use of anticoagulant Active Condition [facility] Low back pain Active Condition [facility] Paroxysmal atrial fibrillation (SNOMED CT 247528181) Active Condition Mar 19, 2024 Entered By: FIDENCIO EDWARDS Comment: s/p ablation x 2, now on [id number] Entered By: 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.D [facility] Diagnosis: ICD-10-CM Z46.1 Encounter for fitting and adjustment of hearing aid Active Diagnosis [facility] Diagnosis: ICD-10-CM E03.9 Hypothyroidism, unspecified Active Diagnosis [facility] Diagnosis: ICD-10-CM I48.0 Paroxysmal atrial fibrillation Active Diagnosis [facility] Diagnosis: ICD-10-CM Z46.0 Encounter for fit/adjst of spectacles and contact lenses Active Diagnosis [facility] Diagnosis: ICD-10-CM 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, bilateral [facility] Diagnosis: ICD-10-CM Z23 Encounter for immunization Active [facility] Diagnosis: ICD-10-CM Z00.01 Encounter for general adult medical exam w abnormal findings Active Diagnosis [facility] MARY JON DOMINGA [facility] Medications Combined list of outpatient medications from Department of Defense and Veterans Affairs facilities.Medications provided include 1) outpatient medications from the last 15 months, and 2) patient-reported medications. Medication Details Route Status Patient Instructions Prescription Expires Prescription Number Last Dispense Date Ordering Provider Order Date Order Qty Source AMIODARONE HCL (PACERONE) 200MG TAB TAKE ONE TABLET BY MOUTH QD ORAL ACTIVE [facility] 2019 [facility] AMLODIPINE BESYLATE 10MG TAB TAKE ONE TABLET BY MOUTH ONCE DAILY ORAL ACTIVE FURCOLO,T PARKER 2023 [facility] APIXABAN 5MG TAB TAKE ONE TABLET BY MOUTH TWICE DAILY ORAL ACTIVE 08/11/2024 [id number] 5 [facility] APIXABAN 5MG TAB TAKE ONE TABLET BY MOUTH TWICE DAILY ORAL DISCONT INUED 08/02/2023 [id number] 4 [facility] ATORVASTATI N CA 20MG TAB TAKE ONE TABLET BY MOUTH EVERY DAY FOR CHOLESTE ROL ORAL ACTIVE 08/11/2024 [id number] 5 [facility] 2023 90 [facility] ATORVASTATI N CA 20MG TAB TAKE ONE TABLET BY MOUTH EVERY DAY FOR CHOLESTE ROL ORAL DISCONT INUED 08/02/2023 [id number] [facility] EMPAGLIFLOZ IN 10MG TAB TAKE ONE TABLET BY MOUTH ONCE DAILY FOR HEART ORAL DISCONT INUED BY PROVIDE R 08/18/2024 [id number] [facility] 2023 90 [facility] FINASTERIDE 5MG TAB TAKE ONE TABLET BY MOUTH ONCE DAILY FOR PROSTATE ORAL ACTIVE 08/11/2024 [id number] 5 [facility] 2023 90 [facility] FINASTERIDE 5MG TAB TAKE ONE TABLET BY MOUTH ONCE DAILY FOR PROSTATE ORAL DISCONT INUED 08/02/2023 [id number] 3 [facility] 2022 90 [facility] FUROSEMIDE 20MG TAB TAKE ONE TABLET BY MOUTH ORAL ACTIVE FURCOLO,T PARKER 2023 [facility] LEVOTHYROXI NE NA 75MCG TAB (SYNTHROID) TAKE ONE TABLET BY MOUTH EVERY MORNING 30 MINUTES BEFORE BREAKFAS T FOR THYROID TAKE ON AN EMPTY STOMACH WITH A FULL GLASS OF WATER ORAL ACTIVE 03/20/2025 [id number] FURCOLO,T PARKER 2023 90 [facility] LEVOTHYROXI NE NA 75MCG TAB (SYNTHROID) TAKE ONE TABLET BY MOUTH EVERY MORNING 30 MINUTES BEFORE BREAKFAS T FOR THYROID TAKE ON AN EMPTY STOMACH WITH A FULL GLASS OF WATER ORAL DISCONT INUED 04/07/2024 [id number] [facility] 2022 90 [facility] OMEPRAZOLE 20MG CAP,EC TAKE TWO CAPSULES BY MOUTH EVERY MORNING 30 MINUTES BEFORE BREAKFAS T FOR STOMACH ULCER ORAL ACTIVE 08/11/2024 [id number] 4 [facility] 2023 180 [facility] OMEPRAZOLE 20MG CAP,EC TAKE TWO CAPSULES BY MOUTH EVERY MORNING 30 MINUTES BEFORE BREAKFAS T FOR STOMACH ULCER ORAL DISCONT INUED 08/02/2023 [id number] RAISA NIETO JAWED 2022 180 [facility] SILDENAFIL CITRATE 100MG TAB TAKE ONE TABLET BY MOUTH EVERY DAY NEEDED TAKE 1 HOUR PRIOR TO SEXUAL ACTIVITY ORAL ACTIVE 03/20/2025 [id number] FURCOLO,T PARKER 2023 18 [facility] SILDENAFIL CITRATE 100MG TAB TAKE ONE TABLET BY MOUTH EVERY DAY NEEDED TAKE 1 HOUR PRIOR TO SEXUAL ACTIVITY ORAL DISCONT INUED 02/20/2024 [id number] RAISA NIETO JAWED 2022 6 [facility] TAMSULOSIN HCL 0.4MG CAP TAKE ONE CAPSULE BY MOUTH ONCE DAILY ORAL ACTIVE 09/16/2024 [id number] FURCOLO,T PARKER 2023 90 [facility] TAMSULOSIN HCL 0.4MG CAP TAKE ONE CAPSULE BY MOUTH ONCE DAILY ORAL DISCONT INUED 03/13/2024 [id number] RAISA NIETO [facility]AWED 2022 30 [facility] Allergies, Adverse Reactions, Alerts Combined list of allergies from Department of Defense and Veterans Affairs facilities. It does not include entries that were removed or entered in error. Substance Category Reaction Severity Reaction type Status Date Reported Comments Source AUGMENTIN Propensity to adverse reactions to drug (finding) Dyspnea active 3 [facility] CHERRIES Propensity to adverse reactions to substance (finding) Anaphylaxis active 3 [facility] LISINOPRIL Propensity to adverse reactions to drug (finding) Angioedema, Angioedema of tongue active 1 [facility] Immunizations Combined list of available immunizations from the Department of Defense and Veterans Affairs facilities. 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 Status Comments Source INFLUENZA, UNSPECIFIED FORMULATION 2023 88 complet ed [facility] COVID-19 (MODERNA), MRNA, LNP-S, PF, 50 MCG/0.5 ML (AGES 12+ YEARS) 1 2022 JACI ADEN LEFT DELTO ID [id number] 312 complet ed [facility] INFLUENZA, HIGH-DOSE, QUADRIVALENT 2022 [place] GTZ M RIGHT DELTO ID [id number] 197 complet ed [facility] COVID-19 (MODERNA), MRNA, LNP-S, BIVALENT BOOSTER, PF, 50 MCG/0.5 ML OR 25MCG/0.25 ML DOSE 1 2021 229 complet ed MOD; [id number]; 3 [facility] INFLUENZA VACCINE, QUADRIVALENT, ADJUVANTED 2021 205 complet ed [facility] INFLUENZA, UNSPECIFIED FORMULATION 2020 88 complet ed [facility] TD (ADULT), 5 LF TETANUS TOXOID, PRESERVATIVE FREE, ADSORBED 2020 113 complet ed [facility] COVID-19 (PFIZER), MRNA, LNP-S, PF, 30 MCG/0.3 ML DOSE 2 2020 208 complet ed [facility] COVID-19 (PFIZER), MRNA, LNP-S, PF, 30 MCG/0.3 ML DOSE 1 2020 208 complet ed [facility] INFLUENZA, UNSPECIFIED FORMULATION 2019 88 complet ed [facility] ZOSTER RECOMBINANT 2 2019 187 complet ed [facility] ZOSTER RECOMBINANT 1 2019 187 complet ed [facility] INFLUENZA, SEASONAL, INJECTABLE 2018 141 complet ed [facility] INFLUENZA, SEASONAL, INJECTABLE 2017 141 complet ed [facility] INFLUENZA, SEASONAL, INJECTABLE 2016 141 complet ed [facility] FLU,3 YRS (HISTORICAL) 2015 88 complet ed [facility] PNEUMOCOCCAL CONJUGATE PCV 13 2014 133 complet ed [facility] ZOSTER (HISTORICAL) 2013 121 complet ed [facility] FLU,3 YRS (HISTORICAL) [address] [facility] - employee [facility] FLU,3 YRS (HISTORICAL) 2011 88 complet ed [facility] PNEUMOCOCCAL, UNSPECIFIED FORMULATION 2011 109 complet ed [facility] DTAP, UNSPECIFIED FORMULATION 2011 107 complet ed [facility] TD(ADULT) UNSPECIFIED FORMULATION 2007 139 complet ed [facility] Results Combined list of recent chemistry, hematology and other laboratory results from Department of Defense and Veterans Affairs, ranging from 15 months to all on record, depending upon the facility. Order Name Results Value Reference Range Date Interpretation Specimen Comments Source LIPID PANEL, NON FASTING CHOLESTEROL [MASS/VOLUM E] IN SERUM OR PLASMA 165 mg/dL 02/23 Specimen Type: SERUM No comment entered. Ordering Provider: KAUSHIK EDWARDS Report Released Date/Time: Feb 17, 2024 10:24 AM Reporting Lab: [facility] [place] [facility] [address] [facility] [facility] [address] Performing Lab: [facility] [place] [facility] [address] [facility] [facility] [address] [facility] LIPID PANEL, NON FASTING TRIGLYCERID E [MASS/VOLUM E] IN SERUM OR PLASMA 91 mg/dL 0 - 150 02/23 Specimen Type: SERUM No comment entered. Ordering Provider: KAUSHIK EDWARDS Report Released Date/Time: Feb 17, 2024 10:24 AM Reporting Lab: [facility] [place] [facility] [address] [facility] [address] Performing Lab: [facility] [place] [facility] [address] [facility] [address] [facility] [place] [facility] LIPID PANEL, NON FASTING CHOLESTEROL IN LDL [MASS/VOLUM E] IN SERUM OR PLASMA BY CALCULATION 74 mg/dL 0 - 129 02/23 Specimen Type: SERUM No comment entered. Ordering Provider: KAUSHIK EDWARDS Report Released Date/Time: Feb 17, 2024 10:24 AM Reporting Lab: [facility] [place] [address] [address] Performing Lab: [facility] [place] [address] [address] [facility] LIPID PANEL, NON FASTING CHOLESTEROL .TOTAL/CHOL ESTEROL IN HDL [MASS RATIO] IN SERUM OR PLASMA 2.3 02/23 Specimen Type: SERUM No comment entered. Ordering Provider: KAUSHIK EDWARDS Report Released Date/Time: Feb 17, 2024 10:24 AM Reporting Lab: [facility] [place] [address] [address] Performing Lab: [facility] [place] [address] [address] [facility] LIPID PANEL, NON FASTING CHOLESTEROL IN HDL [MASS/VOLUM E] IN SERUM OR PLASMA 73 mg/dL 40 - 60 02/23 H Specimen Type: SERUM No comment entered. Ordering Provider: KAUSHIK EDWARDS Report Released Date/Time: Feb 17, 2024 10:24 AM Reporting Lab: [facility] [place] [address] [address] Performing Lab: [facility] [place] [address] [address] [facility] [facility] BASIC METABOLIC PANEL (non-fast ing) UREA NITROGEN [MASS/VOLUM E] IN SERUM OR PLASMA 22 mg/dL 7 - 25 02/23 Specimen Type: SERUM No comment entered. Ordering Provider: KAUSHIK EDWARDS Report Released Date/Time: Feb 17, 2024 10:24 AM Reporting Lab: [facility] [address] [facility] [facility] [address] Performing Lab: [facility] [address] [address] [facility] BASIC METABOLIC PANEL (non-fast ing) GLUCOSE [MASS/VOLUM E] IN SERUM OR PLASMA 92 mg/dL 65 - 100 02/23 Specimen Type: SERUM No comment entered. Ordering Provider: KAUSHIK EDWARDS Report Released Date/Time: Feb 17, 2024 10:24 AM Reporting Lab: [facility] [address] [address] Performing Lab: [facility] [address] [address] [facility] BASIC METABOLIC PANEL (non-fast ing) SODIUM [MOLES/VOLU ME] IN SERUM OR PLASMA 139 mmol/L 135 - 145 02/23 Specimen Type: SERUM No comment entered. Ordering Provider: KAUSHIK EDWARDS Report Released Date/Time: Feb 17, 2024 10:24 AM Reporting Lab: [facility] [address] [address] Performing Lab: [facility] [address] [address] [facility] BASIC METABOLIC PANEL (non-fast ing) POTASSIUM [MOLES/VOLU ME] IN SERUM OR PLASMA 4.4 mmol/L 3.5 - 5.0 02/23 Specimen Type: SERUM No comment entered. Ordering Provider: KAUSHIK EDWARDS Report Released Date/Time: Feb 17, 2024 10:24 AM Reporting Lab: [facility] [address] [address] Performing Lab: [facility] [address] [address] [facility] BASIC METABOLIC PANEL (non-fast ing) CHLORIDE [MOLES/VOLU ME] IN SERUM OR PLASMA 105 mmol/L 100 - 110 02/23 Specimen Type: SERUM No comment entered. Ordering Provider: KAUSHIK EWDARDS Report Released Date/Time: Feb 17, 2024 10:24 AM Reporting Lab: [address] [address] Performing Lab: [address] [address] [facility] BASIC METABOLIC PANEL (non-fast ing) CARBON DIOXIDE, TOTAL [MOLES/VOLU ME] IN SERUM OR PLASMA 24 meq/L 20 - 30 02/23 Specimen Type: SERUM No comment entered. Ordering Provider: KAUSHIK EDWARDS Report Released Date/Time: Feb 17, 2024 10:24 AM Reporting Lab: [address] [address] Performing Lab: [facility] [address] [address] [facility] BASIC METABOLIC PANEL (non-fast ing) CREATININE [MASS/VOLUM E] IN SERUM OR PLASMA 1.04 mg/dL 0.50 - 1.40 02/23 Specimen Type: SERUM No comment entered. Ordering Provider: KAUSHIK EDWARDS Report Released Date/Time: Feb 17, 2024 10:24 AM Reporting Lab: [facility] [address] [address] Performing Lab: [facility] [address] [facility] BASIC METABOLIC PANEL (non-fast ing) GLOMERULAR FILTRATION RATE/1.73 SQ M.PREDICTED [VOLUME RATE/AREA] IN SERUM, PLASMA OR BLOOD BY CREATININE- BASED FORMULA (CKD-EPI 2020) 70 mL/min 60 02/23 Specimen Type: SERUM No comment entered. Ordering Provider: KAUSHIK EDWARDS Report Released Date/Time: Feb 17, 2024 10:24 AM Reporting Lab: [facility] [place] [facility] [address] [facility] [address] Performing Lab: [facility] [place] [facility] [address] [facility] [facility] [address] [facility] [place] THYROID T4 FREE(FT4) THYROXINE (T4) FREE [MASS/VOLUM E] IN SERUM OR PLASMA 1.12 ng/dL 0.6 - 1.6 07/29 Specimen Type: SERUM No comment entered. Ordering Provider: DIAMOND NIETO Report Released Date/Time: Jul 15, 2023 09:43 AM Reporting Lab: [facility] [place] [facility] [address] [facility] [address] Performing Lab: [facility] [place] [facility] [address] [facility] [address] [facility] BASIC METABOLIC PANEL (fasting) UREA NITROGEN [MASS/VOLUM E] IN SERUM OR PLASMA 23 mg/dL 7 - 25 07/29 Specimen Type: SERUM No comment entered. Ordering Provider: DIAMOND NIETO Report Released Date/Time: Jul 15, 2023 09:43 AM Reporting Lab: [facility] [place] [facility] [address] [facility] [address] Performing Lab: [facility] [place] [facility] [address] [facility] [facility] [address] [facility] BASIC METABOLIC PANEL (fasting) GLUCOSE [MASS/VOLUM E] IN SERUM OR PLASMA 90 mg/dL 65 - 100 07/29 Specimen Type: SERUM No comment entered. Ordering Provider: DIAMOND NIETO Report Released Date/Time: Jul 15, 2023 09:43 AM Reporting Lab: [facility] [place] [facility] [address] [facility] [address] Performing Lab: [facility] [place] [facility] [address] [facility] [address] [facility] [place] [facility] BASIC METABOLIC PANEL (fasting) SODIUM [MOLES/VOLU ME] IN SERUM OR PLASMA 140 mmol/L 135 - 145 07/29 Specimen Type: SERUM No comment entered. Ordering Provider: DIAMOND NIETO Report Released Date/Time: Jul 15, 2023 09:43 AM Reporting Lab: [facility] [place] [facility] [address] [facility] [address] Performing Lab: [facility] [place] [facility] [address] [facility] [address] [facility] [place] BASIC METABOLIC PANEL (fasting) POTASSIUM [MOLES/VOLU ME] IN SERUM OR PLASMA 4.4 mmol/L 3.5 - 5.0 07/29 Specimen Type: SERUM No comment entered. Ordering Provider: DIAMOND NIETO Report Released Date/Time: Jul 15, 2023 09:43 AM Reporting Lab: [facility] [place] [address] [address] Performing Lab: [facility] [place] [facility] [address] [facility] [facility] [address] [facility] [place] [facility] BASIC METABOLIC PANEL (fasting) CHLORIDE [MOLES/VOLU ME] IN SERUM OR PLASMA 105 mmol/L 100 - 110 07/29 Specimen Type: SERUM No comment entered. Ordering Provider: DIAMOND NIETO Report Released Date/Time: Jul 15, 2023 09:43 AM Reporting Lab: [facility] [place] [address] [address] Performing Lab[facility] [place] [facility] [address] [facility] [facility] [address] [facility] [place] [facility] BASIC METABOLIC PANEL (fasting) CARBON DIOXIDE, TOTAL [MOLES/VOLU ME] IN SERUM OR PLASMA 25 meq/L 20 - 30 07/29 Specimen Type: SERUM No comment entered. Ordering Provider: DIAMOND NIETO Report Released Date/Time: Jul 15, 2023 09:43 AM Reporting Lab: [facility] [place] [address] [address] Performing Lab: [facility] [place] [facility] [address] [facility] [facility] [address] [facility] [place] [facility] BASIC METABOLIC PANEL (fasting) CREATININE [MASS/VOLUM E] IN SERUM OR PLASMA 1.07 mg/dL 0.50 - 1.40 07/29 Specimen Type: SERUM No comment entered. Ordering Provider: DIAMOND NIETO Report Released Date/Time: Jul 15, 2023 09:43 AM Reporting Lab: [facility] [place] [facility] [address] [facility] [address] Performing Lab: [facility] [place] [facility] [address] [facility] [address] [facility] BASIC METABOLIC PANEL (fasting) GLOMERULAR FILTRATION RATE/1.73 SQ M.PREDICTED [VOLUME RATE/AREA] IN SERUM, PLASMA OR BLOOD BY CREATININE- BASED FORMULA (CKD-EPI 2020) 68 mL/min 60 07/29 Specimen Type: SERUM No comment entered. Ordering Provider: DIAMOND NIETO Report Released Date/Time: Jul 15, 2023 09:43 AM Reporting Lab: [facility] [place] [address] [address] Performing Lab: [facility] [place] [address] [address] [facility] LIPID PANEL FASTING CHOLESTEROL [MASS/VOLUM E] IN SERUM OR PLASMA 164 mg/dL 07/29 Specimen Type: SERUM No comment entered. Ordering Provider: DIAMOND NIETO Report Released Date/Time: Jul 15, 2023 09:43 AM Reporting Lab: [facility] [place] [facility] [address] [facility] [address] Performing Lab: [facility] [place] [address] [address] [facility] [place] [facility] LIPID PANEL FASTING TRIGLYCERID E [MASS/VOLUM E] IN SERUM OR PLASMA 67 mg/dL 0 - 150 07/29 Specimen Type: SERUM No comment entered. Ordering Provider: DIAMOND NIETO Report Released Date/Time: Jul 15, 2023 09:43 AM Reporting Lab: [facility] [place] [facility] [address] [facility] [address] Performing Lab: [facility] [place] [facility] [address] [facility] [address] [facility] [place] [facility] LIPID PANEL FASTING CHOLESTEROL IN LDL [MASS/VOLUM E] IN SERUM OR PLASMA BY CALCULATION 78 mg/dL 0 - 129 07/29 Specimen Type: SERUM No comment entered. Ordering Provider: DIAMOND NIETO Report Released Date/Time: Jul 15, 2023 09:43 AM Reporting Lab: [facility] [place] [facility] [address] [facility] [address] Performing Lab: [facility] [place] [facility] [address] [facility] [address] [facility] [place] [facility] LIPID PANEL FASTING CHOLESTEROL .TOTAL/CHOL ESTEROL IN HDL [MASS RATIO] IN SERUM OR PLASMA 2.2 07/29 Specimen Type: SERUM No comment entered. Ordering Provider: DIAMOND NIETO Report Released Date/Time: Jul 15, 2023 09:43 AM Reporting Lab: [facility] [place] [facility] [address] [facility] [address] Performing Lab: [facility] [place] [facility] [address] [facility] [address] [facility] [place] [facility] LIPID PANEL FASTING CHOLESTEROL IN HDL [MASS/VOLUM E] IN SERUM OR PLASMA 73 mg/dL 40 - 60 07/29 H Specimen Type: SERUM No comment entered. Ordering Provider: DIAMOND NIETO Report Released Date/Time: Jul 15, 2023 09:43 AM Reporting Lab: [facility] [place] [facility] [address] [facility] [facility] [address] Performing Lab: [facility] [place] [facility] [address] [facility] [address] [facility] [place] [facility] LIVER FUNCTION PROTEIN [MASS/VOLUM E] IN SERUM OR PLASMA 6.5 g/dL 6.0 - 8.3 07/29 Specimen Type: SERUM No comment entered. Ordering Provider: DIAMOND NIETO Report Released Date/Time: Jul 15, 2023 09:43 AM Reporting Lab: [facility] [place] [facility] [address] [facility] [id number] Performing Lab: [facility] [place] [facility] [address] [facility] [address] [facility] [place] [facility] LIVER FUNCTION ALBUMIN [MASS/VOLUM E] IN SERUM OR PLASMA 3.7 g/dL 3.5 - 5.0 07/29 Specimen Type: SERUM No comment entered. Ordering Provider: DIAMOND NIETO Report Released Date/Time: Jul 15, 2023 09:43 AM Reporting Lab: [facility] [place] [facility] [address] [facility] [facility] [address] Performing Lab: [facility] [place] [place] [facility] [address] [facility] [address] [facility] [place] [facility] LIVER FUNCTION ALKALINE PHOSPHATASE [ENZYMATIC ACTIVITY/VO LUME] IN SERUM OR PLASMA 66 U/L 40 - 150 07/29 Specimen Type: SERUM No comment entered. Ordering Provider: DIAMOND NIETO Report Released Date/Time: Jul 15, 2023 09:43 AM Reporting Lab: [facility] [address] [facility] [address] Performing Lab: [facility] [address] [facility] [address] [facility] LIVER FUNCTION ASPARTATE AMINOTRANSF ERASE [ENZYMATIC ACTIVITY/VO LUME] IN SERUM OR PLASMA 21 U/L 5 - 34 07/29 Specimen Type: SERUM No comment entered. Ordering Provider: DIAMOND NIETO Report Released Date/Time: Jul 15, 2023 09:43 AM Reporting Lab: [facility] [address] [facility] [address] Performing Lab: [facility] [address] [facility] [address] [facility] LIVER FUNCTION ALANINE AMINOTRANSF ERASE [ENZYMATIC ACTIVITY/VO LUME] IN SERUM OR PLASMA 14 U/L 07/29 Specimen Type: SERUM No comment entered. Ordering Provider: DIAMOND NIETO Report Released Date/Time: Jul 15, 2023 09:43 AM Reporting Lab: [facility] [address] [address] Performing Lab: [facility] [address] [address] [facility] LIVER FUNCTION BILIRUBIN.T OTAL [MASS/VOLUM E] IN SERUM OR PLASMA 0.6 mg/dL 0.2 - 1.2 07/29 Specimen Type: SERUM No comment entered. Ordering Provider: DIAMOND NIETO Report Released Date/Time: Jul 15, 2023 09:43 AM Reporting Lab: [facility] [address] [address] Performing Lab: [facility] [address] [address] [facility] THYROTROPIN [UNITS/VOLU ME] IN SERUM OR PLASMA 1.90 u[IU]/ mL 0.35 - 5.00 07/29 Specimen Type: SERUM No comment entered. Ordering Provider: DIAMOND NIETO Report Released Date/Time: Jul 15, 2023 09:43 AM Reporting Lab: [facility] [address] [address] Performing Lab: [facility] [address] [address] [facility] CBC AND DIFF (AUTO) LEUKOCYTES [#/VOLUME] IN BLOOD BY AUTOMATED COUNT 6.98 10*3/u L 4.50 - 11.00 07/29 Specimen Type: BLOOD No comment entered. Ordering Provider: DIAMOND NIETO Report Released Date/Time: Jul 15, 2023 09:43 AM Reporting Lab: [facility] [address] [address] Performing Lab: [facility] [address] [facility] [address] [facility] CBC AND DIFF (AUTO) ERYTHROCYTE S [#/VOLUME] IN BLOOD BY AUTOMATED COUNT 4.45 10*6/u L 4.23 - 5.66 07/29 Specimen Type: BLOOD No comment entered. Ordering Provider: DIAMOND NIETO Report Released Date/Time: Jul 15, 2023 09:43 AM Reporting Lab: [facility] [address] [facility] [address] Performing Lab: [facility] [address] [facility] [address] [facility] CBC AND DIFF (AUTO) HEMOGLOBIN [MASS/VOLUM E] IN BLOOD 13.9 g/dL 12.8 - 17 07/29 Specimen Type: BLOOD No comment entered. Ordering Provider: DIAMOND NIETO Report Released Date/Time: Jul 15, 2023 09:43 AM Reporting Lab: [facility] [address] [facility] [address] Performing Lab: [facility] [address] [facility] [address] [facility] CBC AND DIFF (AUTO) HEMATOCRIT [VOLUME FRACTION] OF BLOOD BY AUTOMATED COUNT 41.7 39.2 - 50.4 07/29 Specimen Type: BLOOD No comment entered. Ordering Provider: DIAMOND NIETO Report Released Date/Time: Jul 15, 2023 09:43 AM Reporting Lab: [facility] [address] [facility] [address] Performing Lab: [facility] [address] [facility] [address] [facility] CBC AND DIFF (AUTO) MCV [ENTITIC VOLUME] BY AUTOMATED COUNT 93.7 fL 82 - 99 07/29 Specimen Type: BLOOD No comment entered. Ordering Provider: DIAMOND NIETO Report Released Date/Time: Jul 15, 2023 09:43 AM Reporting Lab: [facility] [address] [facility] [address] Performing Lab: [facility] [address] [facility] [address] [facility] CBC AND DIFF (AUTO) MCHC [MASS/VOLUM E] BY AUTOMATED COUNT 33.3 g/dL 30.8 - 35.1 07/29 Specimen Type: BLOOD No comment entered. Ordering Provider: DIAMOND NIETO Report Released Date/Time: Jul 15, 2023 09:43 AM Reporting Lab: [facility] [address] [facility] [address] Performing Lab: [facility] [address] [facility] [address] [facility] CBC AND DIFF (AUTO) PLATELETS [#/VOLUME] IN BLOOD BY AUTOMATED COUNT 244 10*3/u L 140 - 360 07/29 Specimen Type: BLOOD No comment entered. Ordering Provider: DIAMOND NIETO Report Released Date/Time: Jul 15, 2023 09:43 AM Reporting Lab: [facility] [address] [facility] [address] Performing Lab: [facility] [address] [facility] [address] [facility] CBC AND DIFF (AUTO) ERYTHROCYTE DISTRIBUTIO N WIDTH [RATIO] BY AUTOMATED COUNT 15.9 12.0 - 16.0 07/29 Specimen Type: BLOOD No comment entered. Ordering Provider: DIAMOND NIETO Report Released Date/Time: Jul 15, 2023 09:43 AM Reporting Lab: [facility] [address] [facility] [address] Performing Lab: [facility] [address] [facility] [address] [facility] CBC AND DIFF (AUTO) MONOCYTES [#/VOLUME] IN BLOOD BY AUTOMATED COUNT 0.63 10*3/u L 0.30 - 1.10 07/29 Specimen Type: BLOOD No comment entered. Ordering Provider: DIAMOND NIETO Report Released Date/Time: Jul 15, 2023 09:43 AM Reporting Lab: [facility] [address] [facility] [address] Performing Lab: [facility] [address] [facility] [address] [facility] CBC AND DIFF (AUTO) MCH [ENTITIC MASS] BY AUTOMATED COUNT 31.2 pg 26.2 - 32.6 07/29 Specimen Type: BLOOD No comment entered. Ordering Provider: DIAMOND NIETO Report Released Date/Time: Jul 15, 2023 09:43 AM Reporting Lab: [facility] [address] [facility] [address] Performing Lab: [facility] [address] [facility] [address] [facility] CBC AND DIFF (AUTO) NEUTROPHILS /100 LEUKOCYTES IN BLOOD BY AUTOMATED COUNT 65.6 43.7 - 75.8 07/29 Specimen Type: BLOOD No comment entered. Ordering Provider: DIAMOND NIETO Report Released Date/Time: Jul 15, 2023 09:43 AM Reporting Lab: [facility] [address] [facility] [address] Performing Lab: [facility] [address] [facility] [address] [facility] CBC AND DIFF (AUTO) LYMPHOCYTES /100 LEUKOCYTES IN BLOOD BY AUTOMATED COUNT 21.8 14.0 - 42.3 07/29 Specimen Type: BLOOD No comment entered. Ordering Provider: DIAMOND NIETO Report Released Date/Time: Jul 15, 2023 09:43 AM Reporting Lab: [facility] [address] [facility] [address] Performing Lab: [facility] [address] [facility] [address] [facility] CBC AND DIFF (AUTO) MONOCYTES/1 00 LEUKOCYTES IN BLOOD BY AUTOMATED COUNT 9.0 5.1 - 13.7 07/29 Specimen Type: BLOOD No comment entered. Ordering Provider: DIAMOND NIETO Report Released Date/Time: Jul 15, 2023 09:43 AM Reporting Lab: [facility] [address] [place] [address] Performing Lab: [facility] [address] [facility] [address] [facility] CBC AND DIFF (AUTO) EOSINOPHILS /100 LEUKOCYTES IN BLOOD BY AUTOMATED COUNT 2.7 0.4 - 6.8 07/29 Specimen Type: BLOOD No comment entered. Ordering Provider: DIAMOND NIETO Report Released Date/Time: Jul 15, 2023 09:43 AM Reporting Lab: [facility] [address] [place] [address] Performing Lab: [facility] [address] [address] [facility] CBC AND DIFF (AUTO) BASOPHILS/1 00 LEUKOCYTES IN BLOOD BY AUTOMATED COUNT 0.6 0.1 - 2.0 07/29 Specimen Type: BLOOD No comment entered. Ordering Provider: DIAMOND NIETO Report Released Date/Time: Jul 15, 2023 09:43 AM Reporting Lab: [facility] [address] [place] [address] Performing Lab: [facility] [address] [address] [facility] CBC AND DIFF (AUTO) NEUTROPHILS [#/VOLUME] IN BLOOD BY AUTOMATED COUNT 4.58 10*3/u L 2.20 - 7.60 07/29 Specimen Type: BLOOD No comment entered. Ordering Provider: DIAMOND NIETO Report Released Date/Time: Jul 15, 2023 09:43 AM Reporting Lab: [facility] [address] [place] [address] Performing Lab: [facility] [address] [facility] [address] [facility] CBC AND DIFF (AUTO) LYMPHOCYTES [#/VOLUME] IN BLOOD BY AUTOMATED COUNT 1.52 10*3/u L 1.00 - 3.20 07/29 Specimen Type: BLOOD No comment entered. Ordering Provider: DIAMOND NITEO Report Released Date/Time: Jul 15, 2023 09:43 AM Reporting Lab: [facility] [address] [facility] [address] Performing Lab: [facility] [address] [facility] [address] [facility] CBC AND DIFF (AUTO) EOSINOPHILS [#/VOLUME] IN BLOOD BY AUTOMATED COUNT 0.19 10*3/u L 0.03 - 0.44 07/29 Specimen Type: BLOOD No comment entered. Ordering Provider: DIAMOND NIETO Report Released Date/Time: Jul 15, 2023 09:43 AM Reporting Lab: [facility] [address] [address] Performing Lab[facility] [address] [facility] [address] [facility] CBC AND DIFF (AUTO) BASOPHILS [#/VOLUME] IN BLOOD BY AUTOMATED COUNT 0.04 10*3/u L 0.01 - 0.13 07/29 Specimen Type: BLOOD No comment entered. Ordering Provider: DIAMOND NIETO Report Released Date/Time: Jul 15, 2023 09:43 AM Reporting Lab: [facility] [address] [facility] [address] Performing Lab: [facility] [address] [address] [facility] CBC AND DIFF (AUTO) IMMATURE GRANULOCYTE S/100 LEUKOCYTES IN BLOOD BY AUTOMATED COUNT 0.3 0.0 - 0.7 07/29 Specimen Type: BLOOD No comment entered. Ordering Provider: DIAMOND NIETO Report Released Date/Time: Jul 15, 2023 09:43 AM Reporting Lab: [facility] [address] [facility] [address] Performing Lab: [facility] [address] [facility] [address] [facility] CBC AND DIFF (AUTO) IMMATURE GRANULOCYTE S [#/VOLUME] IN BLOOD 0.02 10*3/u L 0.00 - 0.06 07/29 Specimen Type: BLOOD No comment entered. Ordering Provider: DIAMOND NIETO Report Released Date/Time: Jul 15, 2023 09:43 AM Reporting Lab: [facility] [address] [facility] [address] Performing Lab: [facility] [address] [facility] [address] [facility] TSH THYROTROPIN [UNITS/VOLU ME] IN SERUM OR PLASMA 41.39 u[IU]/ mL 0.35 - 5.00 02/10 H Specimen Type: SERUM No comment entered. Ordering Provider: DIAMOND NIETO Report Released Date/Time: Aug 01, 2022 10:55 AM Reporting Lab: [facility] [address] [facility] [address] Performing Lab: [facility] [address] [facility] [address] [facility] LIVER FUNCTION PROTEIN [MASS/VOLUM E] IN SERUM OR PLASMA 6.9 g/dL 6.0 - 8.3 02/10 Specimen Type: SERUM No comment entered. Ordering Provider: DIAMOND NIETO Report Released Date/Time: Aug 01, 2022 10:55 AM Reporting Lab: [facility] [address] [facility] [address] Performing Lab: [facility] [address] [facility] [address] [facility] LIVER FUNCTION ALBUMIN [MASS/VOLUM E] IN SERUM OR PLASMA 4.0 g/dL 3.5 - 5.0 02/10 Specimen Type: SERUM No comment entered. Ordering Provider: DIAMOND NIETO Report Released Date/Time: Aug 01, 2022 10:55 AM Reporting Lab: [facility] [address] [facility] [address] Performing Lab: [facility] [address] [facility] [address] [facility] LIVER FUNCTION ALKALINE PHOSPHATASE [ENZYMATIC ACTIVITY/VO LUME] IN SERUM OR PLASMA 62 U/L 40 - 150 02/10 Specimen Type: SERUM No comment entered. Ordering Provider: DIAMOND NIETO Report Released Date/Time: Aug 01, 2022 10:55 AM Reporting Lab: [facility] [address] [facility] [address] Performing Lab: [facility] [address] [facility] [address] [facility] LIVER FUNCTION ASPARTATE AMINOTRANSF ERASE [ENZYMATIC ACTIVITY/VO LUME] IN SERUM OR PLASMA 24 U/L 5 - 34 02/10 Specimen Type: SERUM No comment entered. Ordering Provider: DIAMOND NIETO Report Released Date/Time: Aug 01, 2022 10:55 AM Reporting Lab: [facility] [address] [facility] [address] Performing Lab: [facility] [address] [facility] [address] [facility] LIVER FUNCTION ALANINE AMINOTRANSF ERASE [ENZYMATIC ACTIVITY/VO LUME] IN SERUM OR PLASMA 17 U/L 02/10 Specimen Type: SERUM No comment entered. Ordering Provider: DIAMOND NIETO Report Released Date/Time: Aug 01, 2022 10:55 AM Reporting Lab: [facility] [address] [facility] [address] Performing Lab: [facility] [address] [facility] [address] [facility] LIVER FUNCTION BILIRUBIN.T OTAL [MASS/VOLUM E] IN SERUM OR PLASMA 0.6 mg/dL 0.2 - 1.2 02/10 Specimen Type: SERUM No comment entered. Ordering Provider: DIAMOND NIETO Report Released Date/Time: Aug 01, 2022 10:55 AM Reporting Lab: [facility] [address] [facility] [address] Performing Lab: [facility] [address] [facility] [address] [facility] Vital Signs Combined list of inpatient and outpatient Vital Signs from Department of Defense and Veterans Affairs, ranging from 12 months to all on record, depending upon the facility. Vital Sign Value Date Comments Source SYSTOLIC BLOOD PRESSURE 168 03/19/20 09:08:18 [facility] DIASTOLIC BLOOD PRESSURE 78 024 09:08:18 [facility] PULSE OXIMETRY 96 03/19/2024 09:08:18 [facility] WEIGHT 158 03/19/2024 09:08:18 [facility] BMI 28kg/m2 03/19/2024 09:08:18 [facility] TEMPERATURE 97.7 03/19/2024 09:08:18 [facility] PULSE 51 03/19/2024 09:08:18 [facility] RESPIRATION 16 03/19/2024 09:08:18 [facility] SYSTOLIC BLOOD PRESSURE 154 08/18/19 24 15:27:43 [facility] DIASTOLIC BLOOD PRESSURE 75 024 15:27:43 [facility] PULSE OXIMETRY 96 08/18/2023 15:27:43 [facility] WEIGHT 166 08/18/2023 15:27:43 [facility] BMI 29kg/m2 08/18/2023 15:27:43 [facility] PAIN 0 08/18/2023 15:27:43 [facility] HEIGHT 63 08/18/2023 15:27:43 [facility] TEMPERATURE 98.3 08/18/2023 15:27:43 [facility] PULSE 58 08/18/2023 15:27:43 [facility] RESPIRATION 18 08/18/2023 15:27:43 [facility] Encounters Combined list of: 1) Encounters from Department of Veterans Affairs facilities going back up to thelast 18 months. 2) Encounters from the Department of Defense facilities going back up to 280 months. Location Location Details Encounter Type Encounter Number Reason For Visit Attending Provider ADM Date DC Date Status Disposition Source [facility] Outpatient [facility]counter [id number] 02/04 [facility] Outpatient [facility]counter [id number] 02/06 [facility] Outpatient Encounter [id number] 02/19 [facility] OFFICE O/P EST LOW 20-29 MIN [id number] Diagnos is: ICD-10- CM Z00.01 Encount er for general adult medical exam w abnorma l finding s
TENISHA NIETO MMED JAWED 02/19 [facility] HEARING AID REPAIR/MOD IFYING [id number] Diagnos is: ICD-10- CM Z46.1 Encount er for fitting and adjustm ent of hearing aid<br/ > URBANO ORTIZ 02/20 [facility] Out[facility] Encounter [id number] 02/20 [facility] Out[facility] Encounter [id number] 03/21 [facility] Out[facility] Encounter [id number] 03/24 [facility] Out[facility] Encounter [id number] Evangelina JAEGER 04/07 [facility] OFF/OP EST MAY X REQ PHY/QHP [id number] Diagnos is: ICD-10- CM Z23 Encount er for immuniz ation<b r/> DIANA ADEN P 04/11 [facility] Out[facility] Encounter [id number] 06/09 [facility] COMPRE OPH EXAM EST PT 1/> [id number] Diagnos is: ICD-10- CM H25.13 Age-rel ated nuclear catarac t, bilater al
ROSA ELENACARMELO H B 06/18 [facility] FIT SPECTACLES MONOFOCAL [id number] Diagnos is: ICD-10- CM Z46.0 Encount er for fit/adj st of spectac les and contact lenses< br/> CARMELO CUBA H B 06/18 [facility] Out[facility] Encounter [id number] 06/25 [facility] Out[facility] Encounter [id number] 07/15 [facility] Out[facility] Encounter [id number] 07/28 [facility] Out[facility] Encounter [id number] 08/03 [facility] Out[facility] Encounter [id number] 08/05 [facility] Out[facility] Encounter [id number] BECKA TALBERT 08/10 [facility] OFFICE O/P EST MOD 30 MIN [id number] Diagnos is: ICD-10- CM I48.0 Paroxys mal atrial fibrill ation<b r/> TENISHA NIETO MMED JAWED 08/17 [facility] Out[facility] Encounter [id number] Penelope HENDERSON 09/15 [facility] Out[facility] Encounter [id number] Penelope HENDERSON 02/16 [facility] Outpatient Encounter [id number] 02/25 [facility] Outpatient Encounter [id number] 03/05 [facility] OFFICE O/P EST MOD 30 MIN [id number] Diagnos is: ICD-10- CM E03.9 Hypothy roidism , unspeci fied
FURCOLO,TI NA 03/19 [facility] HEARING AID REPAIR/MOD IFYING [id number] Diagnos is: ICD-10- CM Z46.1 Encount er for fitting and adjustm ent of hearing aid<br/ > SENIOR,FRANCY OLE L 04/06 [facility] Social History Combined list of available smoking, tobacco, and other social history from Department of Defense and Veterans Affairs facilities. Social History Type Response Date Comment Sourc e Tobacco smoking status NHIS VA-TOBACCO NEVER USED 08/18/2023 [facility] History of tobacco use VA-TOBACCO NEVER USED 08/01/2022 [facility] History of tobacco use VA-TOBACCO NEVER USED 07/03/2021 [facility] History of tobacco use VA-TOBACCO NEVER USED 06/16/2020 [facility] History of tobacco use [facility]-TOBACCO NEVER USED 12/07/2018 [facility] History [facility] tobacco use [facility] NEVER USED 12/15/2017 [facility] History of tobacco use LIFETIME NON-TOBACCO USER 06/02/2017 [facility] History of tobacco use LIFETIME NON-TOBACCO USER 06/04/2016 [facility] [place] History of tobacco use LIFETIME NON-TOBACCO USER 05/09/2015 [facility] History of tobacco use LIFETIME NON-TOBACCO USER 10/27/2012 [facility] Plan of Care List of future care activities from [facility] Affairs facilities. Additional future care activities may be listed in the Assessment and Plan section. Date/Time Care Activity Care Activity Detail Facili ty 06/21/2024 AMBULATORY - MEDICINE [facility] 09/14/2024 [facility] [place] 09[facility]30/2024 AMBULATORY - REHAB MEDICINE AMBULATORY - REHAB MEDICINE [facility]
--- OUTSIDE RECORDS SUMMARY | 2024-06-08 09:00 | XMS_ITS | Encounter Summary ---
Author Name [facility] [place] [facility] [place] [facility] [place] Address [address] [place] [address] Care Team Providers Care Creeler Name Role Phone FIDENCIO EDWARDS Primary Care [...] Douglas's Name Patient's Relationship to Policy Douglas [facility] HEALTH PLAN MEDICARE SUPPLEMEN JOVANNA Jun 26, 2007 PLANMY [id number] ROSA FLANNERY PATIENT MEDICARE (WNR) MEDICARE (M) PART B May 26, 2007 PART B [id number] ROSA FLANNERY PATIENT MEDICARE (WNR) MEDICARE (M) PART A Dec 24, 2002 PART A [id number] ROSA FLANNERY PATIENT Selected Encounter This section includes the information on record at [place] for the Encounter. Date/Time Encounter Type Encounter Description Reason Provider Source Aug 18, 2023 03:30 PM OFFICE O/P EST MOD 30 MIN PRIMARY CARE/MEDICINE ICD-10-CM I48.0 Paroxysmal atrial fibrillation BEAN NIETO IHE Encounter Template Text not used by [facility] Assessments - Encounter Diagnoses This section includes the primary and secondary diagnoses documented for the Encounter. Date/Time Primary/Secondary Diagnosis Diagnosis Name Provider Source Sep 02, 2023 02:11 PM PRIMARY Paroxysmal atrial fibrillation SAULOBRADRAISARUBENRaudel Price JAWED [facility] [place] [facility] Sep 02, 2023 02:11 PM SECONDARY Chronic prostatitis BEAN NIETO Dee [facility]AWED [facility] [place] [facility] Sep 02, 2023 02:11 PM SECONDARY Essential (primary) hypertension BEAN NIETO Dee JAWED [facility] [place] [facility] Sep 02, 2023 02:11 PM SECONDARY Gastro-esophageal reflux disease without esophagitis GERSONBEAN JAWED [facility] [place] [facility] Sep 02, 2023 02:11 PM SECONDARY Hypothyroidism, unspecified RAISA NIETOTEMO Price [facility]AWED [facility] [place] [facility] Sep 02, 2023 02:11 PM SECONDARY Male erectile disorder GERSONBEAN JAWED [facility] [place] [facility] Sep 02, 2023 02:11 PM SECONDARY Pure hypercholesterolem ia, unspecified BEAN NIETO Dee JAWED [facility] [place] [facility] Sep 02, 2023 02:11 PM SECONDARY Unspecified diastolic (congestive) heart failure BEAN NIETO Dee JAWED [facility] [place] [facility] Lab Results: +/- 30 days of the encounter This section includes the Chemistry and Hematology Lab Results on record with [place] for the patient. Radiology Reports and Pathology Reports are provided separately, in subsequent sections. Lab Results This section contains the Chemistry/Hematology Results that were resulted 30 days before or 30 daysafter the date of the Encounter. Date/Time Source Result Type Result - Unit Interpretation Reference Range Comment Jul 30, 2023 10:22 AM [facility] [place] [facility] THYROID T4 FREE(FT4) Specimen Type: SERUM No comment entered. Ordering Provider: BEAN NIETO Report Released Date/Time: Jul 15, 2023 09:43 AM Reporting Lab: [facility] [place] [address] [address] Performing Lab: [facility] [address] [facility] [facility] [address] THYROID T4 FREE(FT4) 1.12 ng/dL 0.6-1.6 Jul 30, 2023 10:22 AM [facility] BASIC METABOLIC PANEL (fasting) Specimen Type: SERUM No comment entered. Ordering Provider: BEAN NIETO Report Released Date/Time: Jul 15, 2023 09:43 AM Reporting Lab: [facility] [address] [facility] [address] Performing [facility]: [facility] [address] [facility] [address] UREA NITROGEN 23 mg/dL 7-25 GLUCOSE 90 mg/dL 65-100 SODIUM 140 mmol/L 135-145 POTASSIUM 4.4 mmol/L 3.5-5.0 CHLORIDE 105 mmol/L 100-110 CO2 25 meq/L 20-30 CREATININE, Serum 1.07 mg/dL 0.50-1.40 eGFR(CKD-EPI 2020) 68 mL/min >60 Jul 30, 2023 10:22 AM [facility] LIPID PANEL FASTING Specimen Type: SERUM No comment entered. Ordering Provider: BEAN NIETO Report Released Date/Time: Jul 15, 2023 09:43 AM Reporting Lab: [facility] [address] [facility] [address] Performing Lab: [facility] [address] CHOLESTEROL 164 mg/dL TRIGLYCERIDE 67 mg/dL 0-150 LDL calculated 78 mg/dL 0-129 CHOL/HDL 2.2 HDL CHOLESTEROL 73 mg/dL H 40-60 Jul 30, 2023 10:22 AM [facility] TSH Specimen Type: SERUM No comment entered. Ordering Provider: BEAN NIETO Report Released Date/Time: Jul 15, 2023 09:43 AM Reporting Lab: [facility] [address] [facility] [address] Performing [facility]: [facility] [address] TSH 1.90 u[IU]/mL 0.35-5.00 Jul 30, 2023 10:22 AM [facility] LIVER FUNCTION Specimen Type: SERUM No comment entered. Ordering Provider: BEAN NIETO Report Released Date/Time: Jul 15, 2023 09:43 AM Reporting Lab: [address] [address] Performing Lab: [address] [address] PROTEIN,TOTAL 6.5 g/dL 6.0-8.3 ALBUMIN 3.7 g/dL 3.5-5.0 ALKALINE PHOSPHATASE 66 U/L 40-150 AST 21 U/L 5-34 ALT 14 U/L BILIRUBIN, TOTAL 0.6 mg/dL 0.2-1.2 Jul 30, 2023 10:22 AM [facility] CBC AND DIFF (AUTO) Specimen Type: BLOOD No comment entered. Ordering Provider: BEAN NIETO Report Released Date/Time: Jul 15, 2023 09:43 AM Reporting Lab: [address] [address] Performing Lab: [address] [address] WBC 6.98 10*3/uL 4.50-11.00 RBC 4.45 10*6/uL 4.23-5.66 HGB 13.9 g/dL 12.8-17 HCT 41.7 39.2-50.4 MCV 93.7 fL 82-99 MCHC 33.3 g/dL 30.8-35.1 PLT 244 10*3/uL 140-360 RDW-CV 15.9 12.0-16.0 [place], Abs 0.63 10*3/uL 0.30-1.10 MCH 31.2 pg 26.2-32.6 Neut % 65.6 43.7-75.8 Lymph % 21.8 14.0-42.3 [place] % 9.0 5.1-13.7 Eos % 2.7 0.4-6.8 Baso % 0.6 0.1-2.0 Neut, Abs 4.58 10*3/uL 2.20-7.60 Lymph, Abs 1.52 10*3/uL 1.00-3.20 Eos, Abs 0.19 10*3/uL 0.03-0.44 Baso, Abs 0.04 10*3/uL 0.01-0.13 Immature Gran % 0.3 0.0-0.7 Immature Gran, Abs 0.02 10*3/uL 0.00-0.06 Vital Signs: All taken on the encounter date This section contains inpatient and outpatient Vital Signs collected on the date of the Encounter. Date/Time Temperature Pulse Blood Pressure Respiratory Rate SP02 Pain Height Weight Body Mass Index Source Aug 18, 2023 03:56 PM 118/73 [facility] [place] [facility] [facility] Aug 18, 2023 03:27 PM 98.3 58 154/75 18 96 0 63 166 29 [facility] [place] [facility] [facility] Social History: Smoking Status (Most current) and Tobacco Use (All prior to encounter date) This section includes the most current, and the historical, smoking and tobacco- related health factors from the [place] facility where the Encounter took place. Current Smoking Status This section includes the most current smoking, or tobacco-related health factor, from the [place] facility where the Encounter took place. Date/Time Current Smoking Status Comment Romana gregg Aug 18, 2023 03:30 PM VA-TOBACCO NEVER USED [facility] [place] [facility] Tobacco Use History This section includes a history of the smoking, or tobacco-related health factors, that were collected on or before the date of the Encounter. The data comes from the [place] facility where the Encounter took place. Date/Time Smoking Status/Tobacco Use Comment F acility Aug 01, 2022 10:30 AM VA-TOBACCO NEVER USED [facility] [place] [facility] Jul 03, 2021 01:00 PM VA-TOBACCO NEVER USED [facility] [place] [facility] Jun 16, 2020 08:30 AM VA-TOBACCO NEVER USED [facility] [place] [facility] Dec 07, 2018 01:47 PM VA-TOBACCO NEVER USED [facility] [place] [facility] Dec 15, 2017 08:52 AM VA-TOBACCO NEVER USED [facility] [place] [facility] Jun 02, 2017 03:31 PM LIFETIME NON-TOBACCO USER [facility] [place] [facility] Jun 04, 2016 08:53 AM LIFETIME NON-TOBACCO USER [facility] [place] [facility] May 09, 2015 09:21 AM LIFETIME NON-TOBACCO USER . [facility] [place] [facility] Oct 27, 2012 10:50 AM LIFETIME NON-TOBACCO USER [facility] [place] [facility] Encounter Notes: All associated encounter notes This section contains the clinical notes associated to the Encounter. Date/Time Encounter Note(s) Provider Source Aug 18, 2023 06:15 PM PHYSICIAN NOTE: LOCAL TITLE: MD NOTE STANDARD TITLE: PHYSICIAN NOTE DATE OF NOTE: AUG 18, 2023@18:15 ENTRY DATE: AUG 18, 2023@18:16 AUTHOR: 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 EXP COSIGNER: URGENCY: STATUS: COMPLETED Patient Name: BRY FLANNERY MD VITALS: Patient temperature: 98.3 F [36.8 C] (08/18/2023 15:27) Blood pressure: 118/73 (08/18/2023 15:56) Patient height: 63 in [160.0 cm] (08/18/2023 15:27) Patient weight: 166 lb [75.30 kg] (08/18/2023 15:27) Patient BMI: BMI: 29.5 Patient pulse: 58 (08/18/2023 15:27) Patient respiration: 18 (08/18/2023 15:27) Patient Pulse Oximetry: 96% (08/18/2023 15:27) Pain Ratin (08/18/2023 15:27) Active [facility] Medications: Active Outpatient Medications (including Supplies): Active Outpatient Medications Status 1) APIXABAN 5MG TAB TAKE ONE TABLET BY MOUTH TWICE DAILY ACTIVE (S) 2) ATORVASTATIN CALCIUM 20MG TAB TAKE ONE [...] ONE CAPSULE BY MOUTH ACTIVE ONCE DAILY Pending Outpatient Medications Status 1) EMPAGLIFLOZIN 10MG TAB TAKE ONE TABLET BY MOUTH ONCE PENDING DAILY Active Non-VA Medications Status 1) Non-VA AMIODARONE HCL (PACERONE) 200MG TAB 200MG BY ACTIVE MOUTH EVERY DAY 2) Non-VA AMLODIPINE BESYLATE 5MG TAB 5MG BY MOUTH ONCE ACTIVE DAILY 10 Total Medications Remote Medications: No Active Remote Medications for this patient HPI: Patient was being followed in the community by Dr. Goodman who is a engine repair supervisor and also by urology. 1. Paroxysmal atrial fibrillation patient said he has a long episode of atrial fibrillation which was converted to sinus rhythm by increasing his amiodarone to 600 mg and now patient is back on maintenance dose of 200 mg daily and has been maintained of sinus rhythm. Patient said he had episode of bradycardia and there was consideration for putting a pacemaker patient has a Holter monitor total monitoring time 3 days underlying rhythm was sinus bradycardia average ventricular rate was 54/min range between 38 to 95/min about 81% of the time the rate was less than 60 Rare supraventricular ectopy Rare ventricular ectopy No significant pauses or high-grade AV block No patient markers or diary symptoms. 2. 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 Patient has been on Lasix 20 mg for pitting edema his engine repair supervisor suggested him to start Jardiance 10 mg which she is requesting through the [facility]. We discussed the risk of UTI 3. Hypothyroidism--- patient has been on levothyroxine and his T4 level as well as his TSH was within normal range 4. BPH/idiopathic recurrent prostatitis--patient has been taking finasteride which his urologist change from daily to 3 times a week and he continues to be on tamsulosin 0.4 mg. 5. Hypercholesterolemia patient continues to be on atorvastatin 6. 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 Erectile dysfunction patient has been on sildenafil 9. Low back pain denies any back pain now. On examination: patient is alert and oriented X3 vitals are stable, He is in no apparent distress. EXT: +1 edema Reviewed lab work with the patient CBC was okay T4 was normal TSH within normal limit creatinine was 1.07 EGFR 68 normal electrolytes blood sugar was 90 LFTs were normal cholesterol was 164 triglycerides 67 LDL 78 and HDL cholesterol 73 Assessment/plan: 1. Paroxysmal atrial fibrillation now in sinus rhythm patient also has episodes of bradycardia being followed by cardiology 2 severe diastolic dysfunction with swelling and also shortness of breath--- patient has been known furosemide also was added Jardiance 10 mg 3. Hypothyroidism on levothyroxine euthyroid 4. BPH and idiopathic recurrent prostatitis--BPH symptoms under good control with finasteride and tamsulosin being followed by urology 5. Hypercholesterolemia continue to be on atorvastatin denies any adverse effect 6. Essential hypertension blood pressure has been under good control 7. Castillo's esophagus and GERD continue PPI 8. Erectile dysfunction continue sildenafil 9. Low back pain has been stable Follow-up in 6 months Medication Reconciliation: Outpatient: Has the patient been taking medications as documented in the EMLR? YES: The patient has been taking medications as documented in the EMLR. Essential Medication List for Review used to complete this medication reconciliation. INCLUDED IN THIS LIST: Alphabetical list of active outpatient prescriptions dispensed from this [facility] (local) and dispensed from another [facility] or [facility] facility (remote) as well as inpatient [...] with a VA or non-VA provider. /odilon/ 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 MD STAFF PHYSICIAN Signed: 08/18/2023 18:17 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 [facility] [place] [facility] Aug 18, 2023 03:30 PM PREVENTIVE MEDICINE NURSING NOTE: LOCAL TITLE: CLINICAL REMINDERS/NURSING STANDARD TITLE: PREVENTIVE MEDICINE NURSING NOTE DATE OF NOTE: AUG 18, 2023@15:30 ENTRY DATE: AUG 18, 2023@15:30:45 AUTHOR: JOSE LUIS GONG COSIGNER: URGENCY: STATUS: COMPLETED Advance Directive Screen MH AD: Patient does not have a completed advance directive on file at any facility, [facility] or outside. S/he is not interested in completing one at this time. The patient received education about Advance Directives and written notification of his/her rights. Suicide Screen: C-SSRS Screening [place]-Suicide Severity Rating Scale (C-SSRS Screener) 1. Over the past month, have you wished you were or wished you could go to sleep and not wake up? No 2. Over the past month, have you had any actual thoughts of killing yourself? No 3. Over the past month, have you been thinking about how you might do this? Response not required due to responses to other questions. 4. Over the past month, have you had these thoughts and had some intention of acting on them? Response not required due to responses to other questions. 5. Over the past month, have you started to work out or worked out the details of how to kill yourself? Response not required due to responses to other questions. 6. If yes, at any time in the past month did you intend to carry out this plan? Response not required due to responses to other questions. 7. In your lifetime, have you ever done anything, started to do anything, or prepared to do anything to end your life (for example, collected pills, obtained a gun, gave away valuables, went to the roof but didn't jump)? No 8. If YES, was this within the past 3 months? Response not required due to responses to other questions. Homelessness/Food Insecurity Screen: In the past 2 months, have you been living in stable housing that you own, rent, or stay in as part of a household? Yes - Living in stable housing. Are you worried or concerned that in the next 2 months you may NOT have stable housing that you own, rent, or stay in as part of a household? No - Not worried about housing near future [facility] [employer] reports the following: Within the past 12 months, you worried whether your food would run out before you got money to buy more. Never true Within the past 12 months, the food you bought just didn't last and you didn't have money to get more. Never true Tobacco Use Screening: The patient has never used tobacco. /odilon/ [facility] POLICE INVESTIGATOR,PRIMARY CARE Signed: 08/18/2023 15:32 JOSE LUIS GONG [facility]
--- OUTSIDE RECORDS SUMMARY | 2024-06-08 09:00 | XMS_ITS ---
Author Name Department of [place] [place] Organization [facility] [place] Address [address] [place] [address] Care Team Providers Care Paleology Professor Name Role Phone FIDENCIO EDWARDS Primary Care [...] Douglas's Name Patient's Relationship to Policy Douglas [employer] PLAN MEDICARE SUPPLEMEN JOVANNA Jun 26, 2007 PLANMY [id number] ROSA FLANNERY PATIENT MEDICARE (WNR) MEDICARE (M) PART B May 26, 2007 PART B [id number] ROSA FLANNERY PATIENT MEDICARE (WNR) MEDICARE (M) PART A Dec 24, 2002 PART A [id number] ROSA FLANNERY JOHANN PATIENT Selected Encounter This section includes the information on record at MD for the Encounter. Date/Time Encounter Type Encounter Description Reason Pro vider Source Jul 29, 2023 08:51 AM Outpatient Encounter ADMIN PAT ACTIVTIES (MASNONCT) IHE Encounter Template Text not used by MD Plan of Treatment: Future Appointments (+ 6 months) and Future Tests (+/- 45 days) The Plan of Treatment section includes future care activities for the patient from all [facility] This section includes future appointments and future orders which are active, pending or scheduled. Future Appointments This section includes appointments that were scheduled to occur 6 months from the date of the Encounter, up to a maximum of 20 appointments. The data comes from all [place] treatment facilities. Appointment Date/Time Appointment Type Appointme nt Facility Name Aug 18, 2023 03:30 PM [facility] Lab Results: +/- 30 days of the encounter This section includes the Chemistry and Hematology Lab Results on record with MD for the patient. Radiology Reports and Pathology Reports are provided separately, in subsequent sections. Lab Results This section contains the Chemistry/Hematology Results that were resulted 30 days before or 30 daysafter the date of the Encounter. Date/Time Source Result Type Result - Unit Interpretation Reference Range Comment Jul 30, 2023 10:22 AM [facility] THYROID T4 FREE(FT4) Specimen Type: SERUM No comment entered. Ordering Provider: BEAN NIETO Report Released Date/Time: Jul 15, 2023 09:43 AM Reporting Lab: [facility] [address] [facility] [address] Performing Lab: [facility] [address] [facility] [address] THYROID T4 FREE(FT4) 1.12 ng/dL 0.6-1.6 Jul 30, 2023 10:22 AM [facility] LIPID PANEL FASTING Specimen Type: SERUM No comment entered. Ordering Provider: BEAN NIETO Report Released Date/Time: Jul 15, 2023 09:43 AM Reporting Lab: [facility] [address] [address] Performing Lab: [facility] [address] [facility] [facility] [address] CHOLESTEROL 164 mg/dL TRIGLYCERIDE 67 mg/dL 0-150 LDL calculated 78 mg/dL 0-129 CHOL/HDL 2.2 HDL CHOLESTEROL 73 mg/dL H 40-60 Jul 30, 2023 10:22 AM [facility] LIVER FUNCTION Specimen Type: SERUM No comment entered. Ordering Provider: BEAN NIETO Report Released Date/Time: Jul 15, 2023 09:43 AM Reporting Lab: [facility] [address] [facility] [address] Performing Lab: [address] [address] PROTEIN,TOTAL 6.5 g/dL 6.0-8.3 ALBUMIN 3.7 g/dL 3.5-5.0 ALKALINE PHOSPHATASE 66 U/L 40-150 AST 21 U/L 5-34 ALT 14 U/L BILIRUBIN, TOTAL 0.6 mg/dL 0.2-1.2 Jul 30, 2023 10:22 AM [facility] BASIC METABOLIC PANEL (fasting) Specimen Type: SERUM No comment entered. Ordering Provider: BEAN NIETO Report Released Date/Time: Jul 15, 2023 09:43 AM Reporting Lab: [facility] [address] [facility] [facility] [address] Performing Lab: [address] [address] UREA NITROGEN 23 mg/dL 7-25 GLUCOSE 90 mg/dL 65-100 SODIUM 140 mmol/L 135-145 POTASSIUM 4.4 mmol/L 3.5-5.0 CHLORIDE 105 mmol/L 100-110 CO2 25 meq/L 20-30 CREATININE, Serum 1.07 mg/dL 0.50-1.40 eGFR(CKD-EPI 2020) 68 mL/min >60 Jul 30, 2023 10:22 AM [facility] TSH Specimen Type: SERUM No comment entered. Ordering Provider: BEAN NIETO Report Released Date/Time: Jul 15, 2023 09:43 AM Reporting Lab: [facility] [address] [facility] [facility] [address] Performing Lab: [address] [address] TSH 1.90 u[IU]/mL 0.35-5.00 Jul 30, 2023 10:22 AM [facility] CBC AND DIFF (AUTO) Specimen Type: BLOOD No comment entered. Ordering Provider: BEAN NIETO Report Released Date/Time: Jul 15, 2023 09:43 AM Reporting Lab: [facility] [address] [address] Performing Lab: [facility] [address] [facility] [facility] [address] WBC 6.98 10*3/uL 4.50-11.00 RBC 4.45 10*6/uL 4.23-5.66 HGB 13.9 g/dL 12.8-17 HCT 41.7 39.2-50.4 MCV 93.7 fL 82-99 MCHC 33.3 g/dL 30.8-35.1 PLT 244 10*3/uL 140-360 RDW-CV 15.9 12.0-16.0 [place], Abs 0.63 10*3/uL 0.30-1.10 MCH 31.2 pg 26.2-32.6 Neut % 65.6 43.7-75.8 Lymph % 21.8 14.0-42.3 [place] % 9.0 5.1-13.7 Eos % 2.7 0.4-6.8 Baso % 0.6 0.1-2.0 Neut, Abs 4.58 10*3/uL 2.20-7.60 Lymph, Abs 1.52 10*3/uL 1.00-3.20 Eos, Abs 0.19 10*3/uL 0.03-0.44 Baso, Abs 0.04 10*3/uL 0.01-0.13 Immature Gran % 0.3 0.0-0.7 Immature Gran, Abs 0.02 10*3/uL 0.00-0.06 Social History: Smoking Status (Most current) and Tobacco Use (All prior to encounter date) This section includes the most current, and the historical, smoking and tobacco- related health factors from the [place] facility where the Encounter took place. Current Smoking Status This section includes the most current smoking, or tobacco-related health factor, from the [place] facility where the Encounter took place. Date/Time Current Smoking Status Comment Facil ity Aug 01, 2022 10:30 AM VA-TOBACCO NEVER USED [place] [facility] [place] [facility] Tobacco Use History This section includes a history of the smoking, or tobacco-related health factors, that were collected on or before the date of the Encounter. The data comes from the [place] facility where the Encounter took place. Date/Time Smoking Status/Tobacco Use Comment F acility Jul 03, 2021 01:00 PM VA-TOBACCO NEVER USED [place] [facility] [facility] Jun 16, 2020 08:30 AM VA-TOBACCO NEVER USED [place] [facility] [facility] Dec 07, 2018 01:47 PM VA-TOBACCO NEVER USED [place] [facility] [facility] Dec 15, 2017 08:52 AM VA-TOBACCO NEVER USED [place] [facility] [facility] Jun 02, 2017 03:31 PM LIFETIME NON-TOBACCO USER [place] [facility] [facility] Jun 04, 2016 08:53 AM LIFETIME NON-TOBACCO USER [facility] [facility] May 09, 2015 09:21 AM LIFETIME NON-TOBACCO USER . [facility] [place] [facility] Oct 27, 2012 10:50 AM LIFETIME NON-TOBACCO USER [place] [facility] [place] [facility] Encounter Notes: All associated encounter notes This section contains the clinical notes associated to the Encounter. Date/Time Encounter Note(s) Provider Source Jul 29, 2023 08:51 AM ADMINISTRATIVE NOT E: LOCAL TITLE: CCC: SCHEDULING ADMINISTRATION STANDARD TITLE: ADMINISTRATIVE NOTE DATE OF NOTE: JUL 29, 2023@08:51:37 ENTRY DATE: JUL 29, 2023@08:51:37 AUTHOR: DESI BECK COSIGNER: URGENCY: STATUS: COMPLETED CCC: SCHEDULING ADMINISTRATION Has ADDENDA Patient Demographics Patient Name: BRY FLANNERY Patient Primary Phone: [phone] Patient Primary Address: [address] [place] [address] [place] [address] Patient : 1935 Patient Age: 87 Caller/Recipient Relation to Patient: Self Scheduling Patient Expects Callback: Yes Open Request: None of the above Administrative Administrative Note Reason: Other Administrative Note Comments: Patient called to reschedule appointment, and the fiction and nonfiction writer prose does not have access to reschedule. please call back to reschedule. /odilon/ DESI BECK VISN1 CCC AMSA Signed: 07/29/2023 08:51 Receipt Acknowledged By: 07/29/2023 09:08 /es/ ZANDRA JAEGER Registered Nurse 07/29/2023 13:07 /es/ LOLA MORRIS ADVANCED SUPERVISOR [employer]ANGING [employer] TRIMMING 07/29/2023 ADDENDUM STATUS: COMPLETED International Student Advisor spoke to , cancelled and rescheduled apt for August 18, 2023. /odilon/ LOLA MORRIS ADVANCED SUPERVISOR [employer]ANG[employer] TRIMMING Signed: 07/29/2023 13:10 DESI BECK [facility]
--- OUTSIDE RECORDS SUMMARY | 2024-06-08 09:00 | XMS_ITS | Encounter Summary ---
Author Name [place] Address [address] [place] [address] Care Team Providers Care B And B Gang Worker Name Role Phone FIDENCIO EDWARDS Primary Care [...] PLAN MEDICARE SUPPLEMEN JOVANNA Jun 26, 2007 PLAN [id number] ROSA FLANNERY PATIENT MEDICARE (WNR) MEDICARE (M) PART B May 26, 2007 PART B [id number] ROSA FLANNERY PATIENT MEDICARE (WNR) MEDICARE (M) PART A Dec 24, 2002 PART A [id number] ROSA FLANNERY TorresJAGDISH PATIENT Selected Encounter This section includes the information on record at [place] for the Encounter. Date/Time Encounter Type Encounter Description Reason Pro vider Source Aug 06, 2023 03:25 PM Outpatient Encounter PRIMARY CARE/MEDICINE IHE Encounter Template Text not used by [place] Plan of Treatment: Future Appointments (+ 6 months) and Future Tests (+/- 45 days) The Plan of Treatment section includes future care activities for the patient from all [place] [facility]. This section includes future appointments and future orders which are active, pending or scheduled. Future Appointments This section includes appointments that were scheduled to occur 6 months from the date of the Encounter, up to a maximum of 20 appointments. The data comes from all [place] treatment facilities. Appointment Date/Time Appointment Type Appointme nt Facility Name Aug 18, 2023 03:30 PM AMBULATORY - MEDICINE [facility] Lab Results: +/- 30 days of the encounter This section includes the Chemistry and Hematology Lab Results on record with [place] for the patient. Radiology Reports and Pathology Reports are provided separately, in subsequent sections. Lab Results This section contains the Chemistry/Hematology Results that were resulted 30 days before or 30 daysafter the date of the Encounter. Date/Time Source Result Type Result - Unit Interpretation Reference Range Comment Jul 30, 2023 10:22 AM [facility] THYROID T4 FREE(FT4) Specimen Type: SERUM No comment entered. Ordering Provider: BEAN NIETO Report Released Date/Time: Jul 15, 2023 09:43 AM Reporting Lab: [facility] [address] [facility] [address] Performing Lab: [facility] [address] [facility] [address] THYROID T4 FREE(FT4) 1.12 ng/dL 0.6-1.6 Jul 30, 2023 10:22 AM [facility] BASIC METABOLIC PANEL (fasting) Specimen Type: SERUM No comment entered. Ordering Provider: BEAN NITEO Report Released Date/Time: Jul 15, 2023 09:43 AM Reporting Lab: [facility] [address] [facility] [address] Performing Lab: [facility] [address] [facility] [address] UREA NITROGEN 23 mg/dL 7-25 GLUCOSE 90 mg/dL 65-100 SODIUM 140 mmol/L 135-145 POTASSIUM 4.4 mmol/L 3.5-5.0 CHLORIDE 105 mmol/L 100-110 CO2 25 meq/L 20-30 CREATININE, Serum 1.07 mg/dL 0.50-1.40 eGFR(CKD-EPI 2020) 68 mL/min >60 Jul 30, 2023 10:22 AM [facility] LIPID PANEL FASTING Specimen Type: SERUM No comment entered. Ordering Provider: BEAN NIETO Report Released Date/Time: Jul 15, 2023 09:43 AM Reporting Lab: [facility] [address] [facility] [address] Performing Lab: [address] [address] CHOLESTEROL 164 mg/dL TRIGLYCERIDE 67 mg/dL 0-150 LDL calculated 78 mg/dL 0-129 CHOL/HDL 2.2 HDL CHOLESTEROL 73 mg/dL H 40-60 Jul 30, 2023 10:22 AM [facility] LIVER FUNCTION Specimen Type: SERUM No comment entered. Ordering Provider: BEAN NIETO Report Released Date/Time: Jul 15, 2023 09:43 AM Reporting Lab: [facility] [address] [facility] [address] Performing Lab: [address] [address] PROTEIN,TOTAL 6.5 g/dL 6.0-8.3 ALBUMIN 3.7 g/dL 3.5-5.0 ALKALINE PHOSPHATASE 66 U/L 40-150 AST 21 U/L 5-34 ALT 14 U/L BILIRUBIN, TOTAL 0.6 mg/dL 0.2-1.2 Jul 30, 2023 10:22 AM [facility] TSH Specimen Type: SERUM No comment entered. Ordering Provider: BEAN NIETO Report Released Date/Time: Jul 15, 2023 09:43 AM Reporting Lab: [facility] [address] [facility] [address] Performing Lab: [address] [address] TSH 1.90 u[IU]/mL 0.35-5.00 Jul 30, 2023 10:22 AM [facility] CBC AND DIFF (AUTO) Specimen Type: BLOOD No comment entered. Ordering Provider: BEAN NIETO Report Released Date/Time: Jul 15, 2023 09:43 AM Reporting Lab: [facility] [address] [facility] [address] Performing Lab: [facility] [address] [facility] [address] WBC 6.98 10*3/uL 4.50-11.00 RBC 4.45 10*6/uL 4.23-5.66 HGB 13.9 g/dL 12.8-17 HCT 41.7 39.2-50.4 MCV 93.7 fL 82-99 MCHC 33.3 g/dL 30.8-35.1 PLT 244 10*3/uL 140-360 RDW-CV 15.9 12.0-16.0 [place], Abs 0.63 10*3/uL 0.30-1.10 MCH 31.2 pg 26.2-32.6 Neut % 65.6 43.7-75.8 Lymph % 21.8 14.0-42.3 [place] % 9.0 5.1-13.7 Eos % 2.7 0.4-6.8 [...] and tobacco- related health factors from the [place] facility where the Encounter took place. Current Smoking Status This section includes the most current smoking, or tobacco-related health factor, from the [place] facility where the Encounter took place. Date/Time Current Smoking Status Comment Romana gregg Aug 01, 2022 10:30 AM VA-TOBACCO NEVER USED [place] [facility] [place] [facility] Tobacco Use History This section includes a history of the smoking, or tobacco-related health factors, that were collected on or before the date of the Encounter. The data comes from the [place] facility where the Encounter took place. Date/Time Smoking Status/Tobacco Use Comment F acility Jul 03, 2021 01:00 PM VA-TOBACCO NEVER USED [place] [facility] [place] [facility] Jun 16, 2020 08:30 AM VA-TOBACCO NEVER USED [place] [facility] [place] [facility] Dec 07, 2018 01:47 PM VA-TOBACCO NEVER USED [place] [facility] [place] [facility] Dec 15, 2017 08:52 AM VA-TOBACCO NEVER USED [place] [facility] [place] [facility] Jun 02, 2017 03:31 PM LIFETIME NON-TOBACCO USER [place] [facility] [place] [facility] Jun 04, 2016 08:53 AM LIFETIME NON-TOBACCO USER [place] [facility] [place] [facility] May 09, 2015 09:21 AM LIFETIME NON-TOBACCO USER . [place] [facility] [place] [facility] Oct 27, 2012 10:50 AM LIFETIME NON-TOBACCO USER [place] [facility] [place] [facility] Encounter Notes: All associated encounter notes This section contains the clinical notes associated to the Encounter. Date/Time Encounter Note(s) Provider Source Aug 06, 2023 03:25 PM ADMINISTRATIVE NOT E: LOCAL TITLE: ADMINISTRATIVE NOTE STANDARD TITLE: ADMINISTRATIVE NOTE DATE OF NOTE: AUG 06, 2023@15:25 ENTRY DATE: AUG 06, 2023@15:25:50 AUTHOR: LOLA MORRIS EXP COSIGNER: URGENCY: STATUS: COMPLETED Reminder call for your upcoming Primary Care Appointment and the need for preparations prior to your upcoming appt. [X] Location in [facility] [address] [facility] [ ] Fasting labs [ ] Lab work within 30 days [ ] Urine [X] No Preparation Action taken: [ ] Called , left voice message [ ] Called , unable to leave voice mail [X] Spoke to /day care aide to remind them of upcoming appt/preparations Upcoming Appointments: 08/18/2023 11:00 CWM/NO/PACT 1 06/21/2024 10:30 CWM/NO/OPTOMETRY/ROSA ELENA /odilon/ LOLA MORRIS ADVANCED MAINTENANCE CONTROLLER Signed: 08/06/2023 15:26 LOLA MORRIS [place] [facility]
--- OUTSIDE RECORDS SUMMARY | 2024-06-08 09:00 | XMS_ITS | Encounter Summary ---
Author Name [place] Organization [place] Address [address] [place] [address] Care Team Providers Care Kiln Burner Helper Name Role Phone FIDENCIO EDWARDS Primary Care [...] MEDICARE SUPPLEMEN JOVANNA Jun 26, 2007 PLAN [id number] ROSA FLANNERY PATIENT MEDICARE (WNR) MEDICARE (M) PART B May 26, 2007 PART B [id number] ROSA FLANNERY PATIENT MEDICARE (WNR) MEDICARE (M) PART A Dec 24, 2002 PART A [id number] ROSA FLANNERY TorresJAGDISH PATIENT Selected Encounter This section includes the information on record at [place] for the Encounter. Date/Time Encounter Type Encounter Description Reason Pro vider Source Aug 04, 2023 11:00 AM Outpatient Encounter PRIMARY CARE/MEDICINE IHE Encounter Template Text not used by [place] Plan of Treatment: Future Appointments (+ 6 months) and Future Tests (+/- 45 days) The Plan of Treatment section includes future care activities for the patient from all [place] treatmentfacilities. This section includes future appointments and future orders which are active, pending or scheduled. Future Appointments This section includes appointments that were scheduled to occur 6 months from the date of the Encounter, up to a maximum of 20 appointments. The data comes from all [place] treatment facilities. Appointment Date/Time Appointment Type Appointme nt Facility Name Aug 18, 2023 03:30 PM AMBULATORY - MEDICINE [facility] Lab Results: +/- 30 days of the encounter This section includes the Chemistry and Hematology Lab Results on record with [place] for the patient. Radiology Reports and Pathology Reports are provided separately, in subsequent sections. Lab Results This section contains the Chemistry/Hematology Results that were resulted 30 days before or 30 daysafter the date of the Encounter. Date/Time Source Result Type Result - Unit Interpretation Reference Range Comment Jul 30, 2023 10:22 AM [facility] THYROID T4 FREE(FT4) Specimen Type: SERUM No comment entered. Ordering Provider: BEAN NIETO Report Released Date/Time: Jul 15, 2023 09:43 AM Reporting Lab: [facility] [address] [facility] [address] Performing Lab: [facility] [address] [facility] [address] THYROID T4 FREE(FT4) 1.12 ng/dL 0.6-1.6 Jul 30, 2023 10:22 AM [facility] LIPID PANEL FASTING Specimen Type: SERUM No comment entered. Ordering Provider: BEAN NIETO Report Released Date/Time: Jul 15, 2023 09:43 AM Reporting Lab: [facility] [address] [facility] [address] Performing Lab: [facility] [address] [facility] [address] CHOLESTEROL 164 mg/dL TRIGLYCERIDE 67 mg/dL 0-150 LDL calculated 78 mg/dL 0-129 CHOL/HDL 2.2 HDL CHOLESTEROL 73 mg/dL H 40-60 Jul 30, 2023 10:22 AM [facility] LIVER FUNCTION Specimen Type: SERUM No comment entered. Ordering Provider: BEAN NIETO Report Released Date/Time: Jul 15, 2023 09:43 AM Reporting Lab: [facility] [address] [facility] [address] Performing Lab: [facility] [address] [facility] [address] PROTEIN,TOTAL 6.5 g/dL 6.0-8.3 ALBUMIN 3.7 g/dL 3.5-5.0 ALKALINE PHOSPHATASE 66 U/L 40-150 AST 21 U/L 5-34 ALT 14 U/L BILIRUBIN, TOTAL 0.6 mg/dL 0.2-1.2 Jul 30, 2023 10:22 AM [facility] BASIC METABOLIC PANEL (fasting) Specimen Type: SERUM No comment entered. Ordering Provider: BEAN NIETO Report Released Date/Time: Jul 15, 2023 09:43 AM Reporting Lab: [facility] [address] [facility] [address] Performing Lab: [address] [address] UREA NITROGEN 23 mg/dL 7-25 GLUCOSE 90 mg/dL 65-100 SODIUM 140 mmol/L 135-145 POTASSIUM 4.4 mmol/L 3.5-5.0 CHLORIDE 105 mmol/L 100-110 CO2 25 meq/L 20-30 CREATININE, Serum 1.07 mg/dL 0.50-1.40 eGFR(CKD-EPI 2020) 68 mL/min >60 Jul 30, 2023 10:22 AM [facility] TSH Specimen Type: SERUM No comment entered. Ordering Provider: BEAN NIETO Report Released Date/Time: Jul 15, 2023 09:43 AM Reporting Lab: [facility] [address] [facility] [address] Performing Lab: [address] [address] TSH 1.90 u[IU]/mL 0.35-5.00 Jul 30, 2023 10:22 AM [facility] CBC AND DIFF (AUTO) Specimen Type: BLOOD No comment entered. Ordering Provider: BEAN NIETO Report Released Date/Time: Jul 15, 2023 09:43 AM Reporting Lab: [facility] [address] [facility] [address] Performing Lab: [facility] [address] [facility] [address] WBC 6.98 10*3/uL 4.50-11.00 RBC 4.45 10*6/uL 4.23-5.66 HGB 13.9 g/dL 12.8-17 HCT 41.7 39.2-50.4 MCV 93.7 fL 82-99 MCHC 33.3 g/dL 30.8-35.1 PLT 244 10*3/uL 140-360 RDW-CV 15.9 12.0-16.0 [place], Abs 0.63 10*3/uL 0.30-1.10 MCH 31.2 pg 26.2-32.6 Neut % 65.6 43.7-75.8 Lymph % 21.8 14.0-42.3 [place] % 9.0 5.1-13.7 Eos % 2.7 0.4-6.8 [...] and tobacco- related health factors from the [place] facility where the Encounter took place. Current Smoking Status This section includes the most current smoking, or tobacco-related health factor, from the [place] facility where the Encounter took place. Date/Time Current Smoking Status Comment Romana gregg Aug 01, 2022 10:30 AM VA-TOBACCO NEVER USED [place] [facility] [place] [facility] Tobacco Use History This section includes a history of the smoking, or tobacco-related health factors, that were collected on or before the date of the Encounter. The data comes from the [place] facility where the Encounter took place. Date/Time Smoking Status/Tobacco Use Comment F acility Jul 03, 2021 01:00 PM VA-TOBACCO NEVER USED [place] [facility] [place] [facility] Jun 16, 2020 08:30 AM VA-TOBACCO NEVER USED [place] [facility] [place] [facility] Dec 07, 2018 01:47 PM VA-TOBACCO NEVER USED [place] [facility] [place] [facility] Dec 15, 2017 08:52 AM VA-TOBACCO NEVER USED [place] [facility] [place] [facility] Jun 02, 2017 03:31 PM LIFETIME NON-TOBACCO USER [place] [facility] [place] [facility] Jun 04, 2016 08:53 AM LIFETIME NON-TOBACCO USER [place] [facility] [place] [facility] May 09, 2015 09:21 AM LIFETIME NON-TOBACCO USER . [place] [facility] [place] [facility] Oct 27, 2012 10:50 AM LIFETIME NON-TOBACCO USER [place] [facility] [place] [facility] Encounter Notes: All associated encounter notes This section contains the clinical notes associated to the Encounter. Date/Time Encounter Note(s) Provider Source Jul 31, 2023 11:21 AM LETTERS: LOCAL TITLE: PATIENT LETTER (T) STANDARD TITLE: LETTERS DATE OF NOTE: JUL 31, 2023@11:21 ENTRY DATE: JUL 31, 2023@11:21:07 AUTHOR: 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 EXP COSIGNER: URGENCY: STATUS: COMPLETED [facility] Toll Free Number Primary Care Telephone Assistance can be reached at extension [phone] [facility] scheduling can be reached at extension [phone] [facility] scheduling can be reached at ext [phone] [address] [place], [place], [address] [place], Primary care team reviewed your recent tests. This is a copy for your own information and also to share with any other provider involved in your care. Sincerely, Your Primary Care Team [facility] [address] [facility] [address] [place] [address] [place] [address] [phone] [place] [facility] [address] [place] [address] [place] [address] [phone] [facility] [address] [facility] [place] [address] [place] [address] 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 [place] [facility]
--- OUTSIDE RECORDS SUMMARY | 2024-06-08 09:00 | XMS_ITS ---
Author Name [facility] [place] [facility] [place] Organization [facility] [place] Address [address] [place] [address] Care Team Providers Care Clam Shucker Name Role Phone FIDENCIO EDWARDS Primary Care [...] MEDICARE SUPPLEMEN JOVANNA Jun 26, 2007 PLANMY [id number] ROSA FLANNERY PATIENT MEDICARE (WNR) MEDICARE (M) PART B May 26, 2007 PART B [id number] ROSA FLANNERY PATIENT MEDICARE (WNR) MEDICARE (M) PART A Dec 24, 2002 PART A [id number] ROSA FLANNERY JOHANN PATIENT Selected Encounter This section includes the information on record at [place] for the Encounter. Date/Time Encounter Type Encounter Description Reason Pro vider Source Jun 25, 2023 02:13 PM Outpatient Encounter ADMIN PAT ACTIVTIES (MASNONCT) IHE Encounter Template Text not used by [place] Plan of Treatment: Future Appointments (+ 6 months) and Future Tests (+/- 45 days) The Plan of Treatment section includes future care activities for the patient from all [place] treatmentfacilities. This section includes future appointments and future orders which are active, pending or scheduled. Future Appointments This section includes appointments that were scheduled to occur 6 months from the date of the Encounter, up to a maximum of 20 appointments. The data comes from all [place] treatment facilities. Appointment Date/Time Appointment Type Appointme nt Facility Name Aug 18, 2023 03:30 PM AMBULATORY - MEDICINE [place] [facility] [place] [facility] Social History: Smoking Status (Most current) and Tobacco Use (All prior to encounter date) This section includes the most current, and the historical, smoking and tobacco- related health factors from the [place] facility where the Encounter took place. Current Smoking Status This section includes the most current smoking, or tobacco-related health factor, from the [place] facility where the Encounter took place. Date/Time Current Smoking Status Comment Facil ity Aug 01, 2022 10:30 AM VA-TOBACCO [facility] USED [place] [facility] Tobacco Use History This section includes a history of the smoking, or tobacco-related health factors, that were collected on or before the date of the Encounter. The data comes from the [place] facility where the Encounter took place. Date/Time Smoking Status/Tobacco Use Comment F acility Jul 03, 2021 01:00 PM VA-TOBACCO NEVER USED [place] [facility] [place] [facility] Jun 16, 2020 08:30 AM VA-TOBACCO NEVER USED [place] [facility] [place] [facility] Dec 07, 2018 01:47 PM VA-TOBACCO NEVER USED [place] [facility] [place] [facility] Dec 15, 2017 08:52 AM VA-TOBACCO NEVER USED [place] [facility] [place] [facility] Jun 02, 2017 03:31 PM LIFETIME NON-TOBACCO USER [place] [facility] [place] [facility] Jun 04, 2016 08:53 AM LIFETIME NON-TOBACCO USER [place] [facility] [place] [facility] May 09, 2015 09:21 AM LIFETIME NON-TOBACCO USER . [place] [facility] [place] [facility] Oct 27, 2012 10:50 AM LIFETIME NON-TOBACCO USER [place] [facility] [place] [facility] Encounter Notes: All associated encounter notes This section contains the clinical notes associated to the Encounter. Date/Time Encounter Note(s) Provider Source Jun 25, 2023 02:13 PM ADMINISTRATIVE NOTE: LOCAL TITLE: CCC: SCHEDULING ADMINISTRATION STANDARD TITLE: ADMINISTRATIVE NOTE DATE OF NOTE: JUN 25, 2023@14:13 ENTRY DATE: JUN 25, 2023@14:13:37 AUTHOR: BRANDON MCGRATH COSIGNER: URGENCY: STATUS: COMPLETED CCC: SCHEDULING ADMINISTRATION Has ADDENDA Type of Call: Administrative Demographics: are validated and correct Caller is: Patient Call back number: Note comment: REQUESTING A CALL BACK REGARDING THE FOLLOWING: Scheduling an appointment (no access) The patient called to reschedule 08/12/23 PACT appointment The call center does not have scheduling privileges for this particular clinic. Please call to schedule. /odilon/ ISAAK MCGRATH Signed: 06/25/2023 14:15 Receipt Acknowledged By: 06/25/2023 15:06 /odilon/ ZANDRA JAEGER Registered Nurse 06/26/2023 09:49 /odilon/ LOLA MORRIS ADVANCED SUPERVISOR LIQUEFACTION 06/26/2023 ADDENDUM STATUS: COMPLETED Wedding Designer did not reach , but is not scheduled for August 12, 2023. He has rescheduled for August 04, 2023. /odilon/ OLLA MORRIS ADVANCED SUPERVISOR LIQUEFACTION Signed: 06/26/2023 10:00 [facility]ON MCGRATH [facility]
--- OUTSIDE RECORDS SUMMARY | 2024-06-08 09:00 | XMS_ITS | Encounter Summary ---
Author Name [facility] [place] [facility] Address [address] [place] [address] Care Team Providers Care Manager Of Financial Reporting Name Role Phone FIDENCIO EDWARDS Primary Care [...] Douglas's Name Patient's Relationship to Policy Douglas [facility] MEDICARE SUPPLEMEN JOVANNA Jun 26, 2007 PLAN [id number] [phone] ROSA REECE PATIENT MEDICARE (WNR) MEDICARE (M) PART B May 26, 2007 PART B [id number] ROSA REECE PATIENT MEDICARE (WNR) MEDICARE (M) PART A Dec 24, 2002 PART A [id number] ROSA REECE JOHANN PATIENT Selected Encounter This section includes the information on record at [place] for the Encounter. Date/Time Encounter Type Encounter Description Reason Provider Source Aug 11, 2023 12:22 PM Outpatient Encounter PRIMARY CARE/MEDICINE YOGESH TALBERT Encounter Template Text not used by [facility] Plan of Treatment: Future Appointments (+ 6 months) and Future Tests (+/- 45 days) The Plan of Treatment section includes future care activities for the patient from all [place] [facility]. This section includes future appointments and future orders which are active, pending or scheduled. Future Appointments This section includes appointments that were scheduled to occur 6 months from the date of the Encounter, up to a maximum of 20 appointments. The data comes from all [place] treatment facilities. Appointment Date/Time Appointment Type Appointme nt Facility Name Aug 18, 2023 03:30 PM AMBULATORY - MEDICINE [facility] Lab Results: +/- 30 days of the encounter This section includes the Chemistry and Hematology Lab Results on record with [place] for the patient. Radiology Reports and Pathology Reports are provided separately, in subsequent sections. Lab Results This section contains the Chemistry/Hematology Results that were resulted 30 days before or 30 daysafter the date of the Encounter. Date/Time Source Result Type Result - Unit Interpretation Reference Range Comment Jul 30, 2023 10:22 AM [facility] THYROID T4 FREE(FT4) Specimen Type: SERUM No comment entered. Ordering Provider: BEAN NESBITT Report Released Date/Time: Jul 15, 2023 09:43 AM Reporting Lab: [facility] [address] [facility] [address] Performing Lab: [facility] [address] [facility] [address] THYROID T4 FREE(FT4) 1.12 ng/dL 0.6-1.6 Jul 30, 2023 10:22 AM [facility] BASIC METABOLIC PANEL (fasting) Specimen Type: SERUM No comment entered. Ordering Provider: BEAN NESBITT Report Released Date/Time: Jul 15, 2023 09:43 AM Reporting Lab: [facility] [address] [facility] [address] Performing Lab: [facility] [address] [facility] [address] UREA NITROGEN 23 mg/dL 7-25 GLUCOSE 90 mg/dL 65-100 SODIUM 140 mmol/L 135-145 POTASSIUM 4.4 mmol/L 3.5-5.0 CHLORIDE 105 mmol/L 100-110 CO2 25 meq/L 20-30 CREATININE, Serum 1.07 mg/dL 0.50-1.40 eGFR(CKD-EPI 2020) 68 mL/min >60 Jul 30, 2023 10:22 AM [facility] LIPID PANEL FASTING Specimen Type: SERUM No comment entered. Ordering Provider: BEAN NESBITT Report Released Date/Time: Jul 15, 2023 09:43 AM Reporting Lab: [facility] [address] [facility] [address] Performing Lab: [facility] [address] [facility] [address] CHOLESTEROL 164 mg/dL TRIGLYCERIDE 67 mg/dL 0-150 LDL calculated 78 mg/dL 0-129 CHOL/HDL 2.2 HDL CHOLESTEROL 73 mg/dL H 40-60 Jul 30, 2023 10:22 AM [facility] LIVER FUNCTION Specimen Type: SERUM No comment entered. Ordering Provider: BEAN NESBITT Report Released Date/Time: Jul 15, 2023 09:43 AM Reporting Lab: [facility] [address] [facility] [address] Performing Lab: [facility] [address] [facility] [address] PROTEIN,TOTAL 6.5 g/dL 6.0-8.3 ALBUMIN 3.7 g/dL 3.5-5.0 ALKALINE PHOSPHATASE 66 U/L 40-150 AST 21 U/L 5-34 ALT 14 U/L BILIRUBIN, TOTAL 0.6 mg/dL 0.2-1.2 Jul 30, 2023 10:22 AM [facility] TSH Specimen Type: SERUM No comment entered. Ordering Provider: BEAN NESBITT Report Released Date/Time: Jul 15, 2023 09:43 AM Reporting Lab: [facility] [address] [facility] [address] Performing Lab: [address] [address] TSH 1.90 u[IU]/mL 0.35-5.00 Jul 30, 2023 10:22 AM [facility] CBC AND DIFF (AUTO) Specimen Type: BLOOD No comment entered. Ordering Provider: BEAN NESBITT Report Released Date/Time: Jul 15, 2023 09:43 AM Reporting Lab: [facility] [address] [facility] [address] Performing Lab: [facility] [address] [facility] [address] WBC 6.98 10*3/uL 4.50-11.00 RBC 4.45 10*6/uL 4.23-5.66 HGB 13.9 g/dL 12.8-17 HCT 41.7 39.2-50.4 MCV 93.7 fL 82-99 MCHC 33.3 g/dL 30.8-35.1 PLT 244 10*3/uL 140-360 RDW-CV 15.9 12.0-16.0 [place], Abs 0.63 10*3/uL 0.30-1.10 MCH 31.2 pg 26.2-32.6 Neut % 65.6 43.7-75.8 Lymph % 21.8 14.0-42.3 [place] % 9.0 5.1-13.7 Eos % 2.7 0.4-6.8 [...] and tobacco- related health factors from the [place] facility where the Encounter took place. Current Smoking Status This section includes the most current smoking, or tobacco-related health factor, from the [place] facility where the Encounter took place. Date/Time Current Smoking Status Comment Romana gregg Aug 01, 2022 10:30 AM VA-TOBACCO NEVER USED [place] [facility] [place] [facility] Tobacco Use History This section includes a history of the smoking, or tobacco-related health factors, that were collected on or before the date of the Encounter. The data comes from the [place] facility where the Encounter took place. Date/Time Smoking Status/Tobacco Use Comment F acility Jul 03, 2021 01:00 PM VA-TOBACCO NEVER USED [place] [facility] [place] [facility] Jun 16, 2020 08:30 AM VA-TOBACCO NEVER USED [place] [facility] [place] [facility] Dec 07, 2018 01:47 PM VA-TOBACCO NEVER USED [place] [facility] [place] [facility] Dec 15, 2017 08:52 AM VA-TOBACCO NEVER USED [place] [facility] [place] [facility] Jun 02, 2017 03:31 PM LIFETIME NON-TOBACCO USER [place] [facility] [place] [facility] Jun 04, 2016 08:53 AM LIFETIME NON-TOBACCO USER [place] [facility] [place] [facility] May 09, 2015 09:21 AM LIFETIME NON-TOBACCO USER . [place] [facility] [place] [facility] Oct 27, 2012 10:50 AM LIFETIME NON-TOBACCO USER [place] [facility] [place] [facility] Encounter Notes: All associated encounter notes This section contains the clinical notes associated to the Encounter. Date/Time Encounter Note(s) Provider Source Aug 11, 2023 01:23 PM ADDENDUM: LOCAL TITLE: Addendum STANDARD TITLE: ADDENDUM DATE OF NOTE: AUG 11, 2023@13:23:01 ENTRY DATE: AUG 11, 2023@13:23:02 AUTHOR: YOGESH TALBERT EXP COSIGNER: URGENCY: STATUS: COMPLETED Dr. Nesbitt following orders are and need to be renewed and refilled OUTPT APIXABAN 5MG TAB (Status = ) TAKE ONE TABLET BY MOUTH TWICE DAILY Rx# [id number] Last Released: 06/21/23 Qty/Days Supply: 180/90 Rx Expiration Date: 08/02/23 Refills Remainin OUTPT ATORVASTATIN CALCIUM 20MG TAB (Status = ) TAKE ONE TABLET BY MOUTH EVERY DAY FOR CHOLESTEROL Rx# [id number] Last Released: 05/20/23 Qty/Days Supply: 90/90 Rx Expiration Date: 08/02/23 Refills Remainin OUTPT FINASTERIDE 5MG TAB (Status = ) TAKE ONE TABLET BY MOUTH ONCE DAILY FOR PROSTATE Rx# [id number] Last Released: 03/13/23 Qty/Days Supply: Rx Expiration Date: 08/02/23 Refills Remainin OUTPT OMEPRAZOLE 20MG EC CAP (Status = ) TAKE TWO CAPSULES BY MOUTH EVERY MORNING 30 MINUTES BEFORE BREAKFAST FOR STOMACH ULCER Rx# [id number] Last Released: 03/13/23 Qty/Days Supply: / YOGESH TALBERT LPN License Practical Nurse Signed: 08/11/2023 13:27 Receipt Acknowledged By: 08/11/2023 22:12 /es/ ONELIA NESBITT MD STAFF PHYSICIAN === --- Original Document --- 08/11/23 PRIMARY CARE SECURE MESSAGING: ------Original Message ------ Sent: 08/11/2023 08:45 AM ET From: BRY REECE To: Lakesha NESBITT_PRIMARY CARE_[facility] Subject: Medication:medication renewal Dr. Nesbitt Suddenly my medication list has been removed from [facility] patient [facility] and I need to renew some meds, especially my Apixaban. I know that you are about to retire but have they cancelled your prescription privileges? I have an appointment to see you on August 17. Just advise. Congratulations on Your decision to retire. You will be missed Dr. Reece ------Original Message ------ Sent: 08/11/2023 01:21 PM ET From: YOGESH TALBERT To: BRY REECE Subject: Medication:medication renewal helshona Reece 4 of your orders has probably that's the reason why you don't see them on your portal. I will ask Dr. Nesbitt to renew your meds, and sent a refill out for apixaban. Yogesh [facility] /odilon/ YOGESH TALBERT LPN License Practical Nurse Signed: 08/11/2023 13:22 YOGESH TALBERT [place] [facility] [place] [facility] Aug 11, 2023 12:22 PM PRIMARY CARE SECUR E MESSAGING: LOCAL TITLE: PRIMARY CARE SECURE MESSAGING STANDARD TITLE: PRIMARY CARE SECURE MESSAGING DATE OF NOTE: AUG 11, 2023@12:22 ENTRY DATE: AUG 11, 2023@13:22:01 AUTHOR: YOGESH TALBERT EXP COSIGNER: URGENCY: STATUS: COMPLETED PRIMARY CARE SECURE MESSAGING Has ADDENDA ------Original Message ------ Sent: 08/11/2023 08:45 AM ET From: BRY REECE To: Lakesha NESBITT_PRIMARY CARE_[facility] Subject: Medication:medication renewal Dr. Nesbitt Suddenly my medication list has been removed from my [place] patient portal and I need to renew some meds, especially my Apixaban. I know that you are about to retire but have they cancelled your prescription privileges? I have an appointment to see you on August 17. Just advise. Congratulations on Your decision to retire. You will be missed Dr. Reece ------Original Message ------ Sent: 08/11/2023 01:21 PM ET From: YOGESH TALBERT To: BRY REECE Subject: Medication:medication renewal ayesha Reece 4 of your orders has probably that's the reason why you don't see them on your portal. I will ask Dr. Nesbitt to renew your meds, and sent a refill out for apixaban. Yogesh [facility] /odilon/ YOGESH TALBERT LPN License Practical Nurse Signed: 08/11/2023 13:22 08/11/2023 ADDENDUM STATUS: COMPLETED Dr. Nesbitt following orders are and need to be renewed and refilled OUTPT APIXABAN 5MG TAB (Status = ) TAKE ONE TABLET BY MOUTH TWICE DAILY Rx# [id number] Last Released: 06/21/23 Qty/Days Supply: 180/ Rx Expiration Date: 08/02/23 Refills Remainin OUTPT ATORVASTATIN CALCIUM 20MG TAB (Status = ) TAKE ONE TABLET BY MOUTH EVERY DAY FOR CHOLESTEROL Rx# [id number] Last Released: 05/20/23 Qty/Days Supply: Rx Expiration Date: 08/02/23 Refills Remainin OUTPT FINASTERIDE 5MG TAB (Status = ) TAKE ONE TABLET BY MOUTH ONCE DAILY FOR PROSTATE Rx# [id number] Last Released: 03/13/23 Qty/Days Supply: Rx Expiration Date: 08/02/23 Refills Remainin OUTPT OMEPRAZOLE 20MG EC CAP (Status = ) TAKE TWO CAPSULES BY MOUTH EVERY MORNING 30 MINUTES BEFORE BREAKFAST FOR STOMACH ULCER Rx# [id number] Last Released: 03/13/23 Qty/Days Supply: odilon/ YOGESH TALBERT LPN License Practical Nurse Signed: 08/11/2023 13:27 Receipt Acknowledged By: * AWAITING SIGNATURE * ONELIA [facility]BITT [facility]
--- OUTSIDE RECORDS SUMMARY | 2024-06-08 09:00 | XMS_ITS | Encounter Summary ---
Author Name [facility] [place] [facility] [place] Organization [facility] [place] Address [address] [place] [address] Care Team Providers Care Dogger Name Role Phone FIDENCIO EDWARDS Primary Care [...] MEDICARE SUPPLEMEN JOVANNA Jun 26, 2007 PLAN [id number] ROSA FLANNERY PATIENT MEDICARE (WNR) MEDICARE (M) PART B May 26, 2007 PART B [id number] ROSA FLANNERY PATIENT MEDICARE (WNR) MEDICARE (M) PART A Dec 24, 2002 PART A [id number] ROSA FLANNERY TorresJAGDISH PATIENT Selected Encounter This section includes the information on record at [place] for the Encounter. Date/Time Encounter Type Encounter Description Reason Pro vider Source Jun 09, 2023 12:00 AM Outpatient Encounter EVENT (HISTORICAL) IHE Encounter Template Text not used by [place] Plan of Treatment: Future Appointments (+ 6 months) and Future Tests (+/- 45 days) The Plan of Treatment section includes future care activities for the patient from all [place] [facility]. This section includes future appointments and future orders which are active, pending or scheduled. Future Appointments This section includes appointments that were scheduled to occur 6 months from the date of the Encounter, up to a maximum of 20 appointments. The data comes from all [place] treatment facilities. Appointment Date/Time Appointment Type Appointme nt Facility Name Jun 18, 2023 08:30 AM AMBULATORY - MEDICINE [place] [facility] [place] [facility] Aug 18, 2023 03:30 PM AMBULATORY - MEDICINE [place] [facility] [place] [facility] Social History: Smoking Status (Most current) and Tobacco Use (All prior to encounter date) This section includes the most current, and the historical, smoking and tobacco- related health factors from the [place] facility where the Encounter took place. Current Smoking Status This section includes the most current smoking, or tobacco-related health factor, from the [facility] facility where the Encounter took place. Date/Time Current Smoking Status Comment Romana ity Aug 01, 2022 10:30 AM VA-TOBACCO NEVER USED [place] [facility] [place] [facility] Tobacco Use History This section includes a history of the smoking, or tobacco-related health factors, that were collected on or before the date of the Encounter. The data comes from the [place] facility where the Encounter took place. Date/Time Smoking Status/Tobacco Use Comment F acility Jul 03, 2021 01:00 PM VA-TOBACCO NEVER USED [place] [facility] [place] [facility] Jun 16, 2020 08:30 AM VA-TOBACCO NEVER USED [facility] [place] [facility] Dec 07, 2018 01:47 PM VA-TOBACCO NEVER USED [facility] [place] [facility] Dec 15, 2017 08:52 AM VA-TOBACCO NEVER USED [facility] [place] [facility] Jun 02, 2017 03:31 PM LIFETIME NON-TOBACCO USER [facility] [place] [facility] Jun 04, 2016 08:53 AM LIFETIME NON-TOBACCO USER [facility] [place] [facility] May 09, 2015 09:21 AM LIFETIME NON-TOBACCO USER . [facility] [place] [facility] Oct 27, 2012 10:50 AM LIFETIME NON-TOBACCO USER [facility] [place] [facility] Encounter Notes: All associated encounter notes This section contains the clinical notes associated to the Encounter. Date/Time Encounter Note(s) Provider Source Jun 09, 2023 12:00 AM NONVA NOTE: LOCAL TITLE: NON-VA OUTPATIENT NOTES STANDARD TITLE: NONVA NOTE DATE OF NOTE: JUN 09, 2023 ENTRY DATE: AUG 26, 2023@12:54:10 AUTHOR: TONE CONNOLLY EXP COSIGNER: URGENCY: STATUS: COMPLETED VistA Imaging - Scanned Document SCANNED DOCUMENT SIGNATURE NOT REQUIRED Electronically Filed: 08/26/2023 by: TONE CONNOLLY PROJECT COORDINATOR RN TONE CONNOLLY [facility]
--- OUTSIDE RECORDS SUMMARY | 2024-06-08 09:00 | XMS_ITS ---
Author Name [facility] [place] Organization [place] Address [address] [place] [address] Care Team Providers Care Employee Wellness/Fitness Coordinator Name Role Phone FIDENCIO EDWARDS Primary Care [...] MEDICARE SUPPLEMEN JOVANNA Jun 26, 2007 PLAN [id number] [phone] ROSA FLANNERY PATIENT MEDICARE (WNR) MEDICARE (M) PART B May 26, 2007 PART B [id number] ROSA FLANNERY PATIENT MEDICARE (WNR) MEDICARE (M) PART A Dec 24, 2002 PART A [id number] ROSA FLANNERY JOHANN PATIENT Selected Encounter This section includes the information on record at [place] for the Encounter. Date/Time Encounter Type Encounter Description Reason Pro vider Source Jul 15, 2023 09:27 AM Outpatient Encounter PRIMARY CARE/MEDICINE IHE Encounter Template Text not used by [facility] Plan of Treatment: Future Appointments (+ 6 months) and Future Tests (+/- 45 days) The Plan of Treatment section includes future care activities for the patient from all [place] [facility] This section includes future appointments and future orders which are active, pending or scheduled. Future Appointments This section includes appointments that were scheduled to occur 6 months from the date of the Encounter, up to a maximum of 20 appointments. The data comes from all [place] treatment facilities. Appointment Date/Time Appointment Type Appointme nt Facility Name Aug 18, 2023 03:30 PM AMBULATORY - MEDICINE [facility] Lab Results: +/- 30 days of the encounter This section includes the Chemistry and Hematology Lab Results on record with [place] for the patient. Radiology Reports and Pathology Reports are provided separately, in subsequent sections. Lab Results This section contains the Chemistry/Hematology Results that were resulted 30 days before or 30 daysafter the date of the Encounter. Date/Time Source Result Type Result - Unit Interpretation Reference Range Comment Jul 30, 2023 10:22 AM [facility] THYROID T4 FREE(FT4) Specimen Type: SERUM No comment entered. Ordering Provider: BEAN NIETO Report Released Date/Time: Jul 15, 2023 09:43 AM Reporting Lab: [facility] [address] [facility] [address] Performing Lab: [facility] [address] [facility] [address] THYROID T4 FREE(FT4) 1.12 ng/dL 0.6-1.6 Jul 30, 2023 10:22 AM [facility] BASIC METABOLIC PANEL (fasting) Specimen Type: SERUM No comment entered. Ordering Provider: BEAN NIETO Report Released Date/Time: Jul 15, 2023 09:43 AM Reporting Lab: [facility] [address] [facility] [address] Performing Lab: [facility] [address] [facility] [address] UREA NITROGEN 23 mg/dL 7-25 GLUCOSE 90 mg/dL 65-100 SODIUM 140 mmol/L 135-145 POTASSIUM 4.4 mmol/L 3.5-5.0 CHLORIDE 105 mmol/L 100-110 CO2 25 meq/L 20-30 CREATININE, Serum 1.07 mg/dL 0.50-1.40 eGFR(CKD-EPI 2020) 68 mL/min >60 Jul 30, 2023 10:22 AM [facility] LIPID PANEL FASTING Specimen Type: SERUM No comment entered. Ordering Provider: BEAN NIETO Report Released Date/Time: Jul 15, 2023 09:43 AM Reporting Lab: [facility] [address] [facility] [address] Performing Lab: [facility] [address] [facility] [address] CHOLESTEROL 164 mg/dL TRIGLYCERIDE 67 mg/dL 0-150 LDL calculated 78 mg/dL 0-129 CHOL/HDL 2.2 HDL CHOLESTEROL 73 mg/dL H 40-60 Jul 30, 2023 10:22 AM [facility] LIVER FUNCTION Specimen Type: SERUM No comment entered. Ordering Provider: BEAN NIETO Report Released Date/Time: Jul 15, 2023 09:43 AM Reporting Lab: [facility] [address] [facility] [address] Performing Lab: [address] [address] PROTEIN,TOTAL 6.5 g/dL 6.0-8.3 ALBUMIN 3.7 g/dL 3.5-5.0 ALKALINE PHOSPHATASE 66 U/L 40-150 AST 21 U/L 5-34 ALT 14 U/L BILIRUBIN, TOTAL 0.6 mg/dL 0.2-1.2 Jul 30, 2023 10:22 AM [facility] TSH Specimen Type: SERUM No comment entered. Ordering Provider: BEAN NIETO Report Released Date/Time: Jul 15, 2023 09:43 AM Reporting Lab: [facility] [address] [facility] [address] Performing Lab: [address] [address] TSH 1.90 u[IU]/mL 0.35-5.00 Jul 30, 2023 10:22 AM [facility] CBC AND DIFF (AUTO) Specimen Type: BLOOD No comment entered. Ordering Provider: BEAN NIETO Report Released Date/Time: Jul 15, 2023 09:43 AM Reporting Lab: [facility] [address] [facility] [address] Performing Lab: [facility] [address] [facility] [address] WBC 6.98 10*3/uL 4.50-11.00 RBC 4.45 10*6/uL 4.23-5.66 HGB 13.9 g/dL 12.8-17 HCT 41.7 39.2-50.4 MCV 93.7 fL 82-99 MCHC 33.3 g/dL 30.8-35.1 PLT 244 10*3/uL 140-360 RDW-CV 15.9 12.0-16.0 [place], Abs 0.63 10*3/uL 0.30-1.10 MCH 31.2 pg 26.2-32.6 Neut % 65.6 43.7-75.8 Lymph % 21.8 14.0-42.3 [place] % 9.0 5.1-13.7 Eos % 2.7 0.4-6.8 [...] and tobacco- related health factors from the [place] facility where the Encounter took place. Current Smoking Status This section includes the most current smoking, or tobacco-related health factor, from the [place] facility where the Encounter took place. Date/Time Current Smoking Status Comment Facil m[facility] Aug 01, 2022 10:30 AM VA-TOBACCO NEVER USED [place] [facility] [place] [facility] Tobacco Use History This section includes a history of the smoking, or tobacco-related health factors, that were collected on or before the date of the Encounter. The data comes from the [place] facility where the Encounter took place. Date/Time Smoking Status/Tobacco Use Comment F acility Jul 03, 2021 01:00 PM VA-TOBACCO NEVER USED [place] [facility] [place] [facility] Jun 16, 2020 08:30 AM VA-TOBACCO NEVER USED [place] [facility] [place] [facility] Dec 07, 2018 01:47 PM VA-TOBACCO NEVER USED VA [facility] [place] [facility] Dec 15, 2017 08:52 AM VA-TOBACCO NEVER USED [place] [facility] [place] [facility] Jun 02, 2017 03:31 PM LIFETIME NON-TOBACCO USER [place] [facility] [place] [facility] Jun 04, 2016 08:53 AM LIFETIME NON-TOBACCO USER [place] [facility] [place] [facility] May 09, 2015 09:21 AM LIFETIME NON-TOBACCO USER . [place] [facility] [place] [facility] Oct 27, 2012 10:50 AM LIFETIME NON-TOBACCO USER [place] [facility] [place] [facility] Encounter Notes: All associated encounter notes This section contains the clinical notes associated to the Encounter. Date/Time Encounter Note(s) Provider Source Jul 15, 2023 09:27 AM ADMINISTRATIVE NOTE: LOCAL TITLE: ADMINISTRATIVE NOTE STANDARD TITLE: ADMINISTRATIVE NOTE DATE OF NOTE: JUL 15, 2023@09:27 ENTRY DATE: JUL 15, 2023@09:27:40 AUTHOR: VIRY ROSE COSIGNER: URGENCY: STATUS: COMPLETED [place] was a walk in to . Had come to lab work for 08/04/2023 appt. only no orders in the chart. /odilon/ VIRY MAK Signed: 07/15/2023 09:29 Receipt Acknowledged By: 07/15/2023 12:44 /odilon/ 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 MD STAFF PHYSICIAN [facility] RO[facility]
--- OUTSIDE RECORDS SUMMARY | 2024-06-08 09:01 | XMS_ITS | Encounter Summary ---
Author Name [facility] [place] Organization [facility] Address [address] [place] [address] Care Team Providers Care Driver Material Handler Name Role Phone FIDENCIO COTTON Primary Care Provider Florence gonzalez Insurance Providers: All historical and current Section Date Range: From patient's date of to the date document was created. This section includes the names of all active insurance providers for the patient. Insurance Provider Type of Coverage Plan Name Start of Policy Coverage End of Policy Coverage Group Number Member ID Insurance Provider's Telephone Number Policy Douglas's Name Patient's Relationship to Policy Douglas [facility] MEDICARE SUPPLEMEN JOVANNA Jun 26, 2007 PLAN [id number] [phone] ROSA FLANNERY PATIENT MEDICARE (WNR) MEDICARE (M) PART B May 26, 2007 PART B [id number] ROSA FLANNERY PATIENT MEDICARE (WNR) MEDICARE (M) PART A Dec 24, 2002 PART A [id number] ROSA FLANNERY TorresJAGDISH PATIENT Selected Encounter This section includes the information on record at [place] for the Encounter. Date/Time Encounter Type Encounter Description Reason Provider Source Feb 17, 2024 10:25 AM Outpatient Encounter PRIMARY CARE/MEDICINE ALLY LEDEZMA Encounter Template Text not used by [place] Plan of Treatment: Future Appointments (+ 6 months) and Future Tests (+/- 45 days) The Plan of Treatment section includes future care activities for the patient from all [place] treatmentfacilities. This section includes future appointments and future orders which are active, pending or scheduled. Future Appointments This section includes appointments that were scheduled to occur 6 months from the date of the Encounter, up to a maximum of 20 appointments. The data comes from all [place] treatment facilities. Appointment Date/Time Appointment Type Appointme nt Facility Name Mar 19, 2024 09:00 AM AMBULATORY - MEDICINE [facility] Apr 06, 2024 10:00 AM AMBULATORY - REHAB MEDICIN E [place] [facility] Jun 21, 2024 10:30 AM AMBULATORY - MEDICINE [facility] Lab Results: +/- 30 days of the encounter This section includes the Chemistry and Hematology Lab Results on record with [place] for the patient. Radiology Reports and Pathology Reports are provided separately, in subsequent sections. Lab Results This section contains the Chemistry/Hematology Results that were resulted 30 days before or 30 daysafter the date of the Encounter. Date/Time Source Result Type Result - Unit Interpretation Reference Range Comment Feb 24, 2024 08:47 AM [facility] LIPID PANEL, NON FASTING Specimen Type: SERUM No comment entered. Ordering Provider: FIDENCIO COTTON Report Released Date/Time: Feb 17, 2024 10:24 AM Reporting Lab: [facility] [address] [facility] [address] Performing Lab: [facility] [address] CHOLESTEROL 165 mg/dL TRIGLYCERIDE 91 mg/dL 0-150 LDL calculated 74 mg/dL 0-129 CHOL/HDL 2.3 HDL CHOLESTEROL 73 mg/dL H 40-60 Feb 24, 2024 08:47 AM [facility] BASIC METABOLIC PANEL (non-fasting) Specimen Type: SERUM No comment entered. Ordering Provider: FIDENCIO COTTON Report Released Date/Time: Feb 17, 2024 10:24 AM Reporting Lab: [facility] [address] Performing Lab: [facility]ITAL[facility] [address] UREA NITROGEN 22 mg/dL 7-25 GLUCOSE 92 mg/dL 65-100 SODIUM 139 mmol/L 135-145 POTASSIUM 4.4 mmol/L 3.5-5.0 CHLORIDE 105 mmol/L 100-110 CO2 24 meq/L 20-30 CREATININE, Serum 1.04 mg/dL 0.50-1.40 eGFR(CKD-EPI 2020) 70 mL/min >60 Social History: Smoking Status (Most current) and Tobacco Use (All prior to encounter date) This section includes the most current, and the historical, smoking and tobacco- related health factors from the [place] facility where the Encounter took place. Current Smoking Status This section includes the most current smoking, or tobacco-related health factor, from the [place] facility where the Encounter took place. Date/Time Current Smoking Status Comment Romana ity Aug 18, 2023 03:30 PM VA-TOBACCO NEVER USED [place] [facility] Tobacco Use History This section includes a history of the smoking, or tobacco-related health factors, that were collected on or before the date of the Encounter. The data comes from the [place] facility where the Encounter took place. Date/Time Smoking Status/Tobacco Use Comment F acility Aug 01, 2022 10:30 AM VA-TOBACCO NEVER USED [place] [facility] [place] [facility] Jul 03, 2021 01:00 PM VA-TOBACCO NEVER USED [place] [facility] [place] [facility] Jun 16, 2020 08:30 AM VA-TOBACCO NEVER USED [place] [facility] [place] [facility] Dec 07, 2018 01:47 PM VA-TOBACCO NEVER USED [place] [facility] [place] [facility] Dec 15, 2017 08:52 AM VA-TOBACCO NEVER USED [place] [facility] [place] [facility] Jun 02, 2017 03:31 PM LIFETIME NON-TOBACCO USER [place] [facility] [place] [facility] Jun 04, 2016 08:53 AM LIFETIME NON-TOBACCO USER [place] [facility] [place] [facility] May 09, 2015 09:21 AM LIFETIME NON-TOBACCO USER . [place] [facility] [place] [facility] Oct 27, 2012 10:50 AM LIFETIME NON-TOBACCO USER [place] [facility] [place] [facility] Encounter Notes: All associated encounter notes This section contains the clinical notes associated to the Encounter. Date/Time Encounter Note(s) Provider Source Feb 17, 2024 10:25 AM PRIMARY CARE SECUR E MESSAGING: [facility] TITLE: PRIMARY CARE SECURE MESSAGING STANDARD TITLE: PRIMARY CARE SECURE MESSAGING DATE OF NOTE: FEB 17, 2024@10:25 ENTRY DATE: FEB 17, 2024@10:25:54 AUTHOR: ALLY LEDEZMA EXP COSIGNER: URGENCY: STATUS: COMPLETED ------Original Message -------- Sent: 02/16/2024 02:08 PM ET From: BRY FLANNERY To: Tam COTTON _ PRIMARY CARE_[facility] Subject: Test:Pre Appointment Lab studies I have an appointment to see Dr. Cotton on Mar 19 (in place of Dr. Nesbitt). He always ordered complete lab work prior to my seeing him. Does Dr. Cotton want to do the same, and if so, please let me know when the lab orders have been sent. ------Original Message -------- Sent: 02/17/2024 10:25 AM ET From: ALLY LEDEZMA To: BRY FLANNERY Subject: Test:Pre Appointment Lab studies Good Morning Mr. Flannery, Dr. Cotton does order her labs a little differently for Dr. Nesbitt, however, I have placed some lab orders for you. You can have them done any time prior to your appointment. Respectfully, Ally Ledezma RN /odilon/ ALLY LEDEZMA RN REGISTERED NURSE Signed: 02/17/2024 10:25 ALLY LEDEZMA [place] [facility]
--- OUTSIDE RECORDS SUMMARY | 2024-06-08 09:01 | XMS_ITS | Encounter Summary ---
Author Name [place] Address [address] [place] [address] Care Team Providers Care Preventive Maintenance Engineer Name Role Phone FIDENCIO EDWARDS Primary Care [...] MEDICARE SUPPLEMEN JOVANNA Jun 26, 2007 PLAN [id number] ROSA FLANNERY PATIENT MEDICARE (WNR) MEDICARE (M) PART B May 26, 2007 PART B [id number] ROSA FLANNERY PATIENT MEDICARE (WNR) MEDICARE (M) PART A Dec 24, 2002 PART A [id number] ROSA FLANNERY TorresJAGDISH PATIENT Selected Encounter This section includes the information on record at [place] for the Encounter. Date/Time Encounter Type Encounter Description Reason Pro vider Source Mar 05, 2024 12:02 PM Outpatient Encounter PRIMARY CARE/MEDICINE [place] Encounter Template Text not used by [place] Plan of Treatment: Future Appointments (+ 6 months) and Future Tests (+/- 45 days) The Plan of Treatment section includes future care activities for the patient from all [place] treatmentfacilities. This section includes future appointments and future orders which are active, pending or scheduled. Future Appointments This section includes appointments that were scheduled to occur 6 months from the date of the Encounter, up to a maximum of 20 appointments. The data comes from all [place] treatment facilities. Appointment Date/Time Appointment Type Appointme nt Facility Name Mar 19, 2024 09:00 AM [facility]ULATORY - [facility] Apr 06, 2024 10:00 AM AMBULATORY - REHAB [facility]ICIN E [facility] Jun 21, 2024 10:30 AM [facility] Lab Results: +/- 30 days of the encounter This section includes the Chemistry and Hematology Lab Results on record with [place] for the patient. Radiology Reports and Pathology Reports are provided separately, in subsequent sections. Lab Results This section contains the Chemistry/Hematology Results that were resulted 30 days before or 30 daysafter the date of the Encounter. Date/Time Source Result Type Result - Unit Interpretation Reference Range Comment Feb 24, 2024 08:47 AM [facility] LIPID PANEL, NON FASTING Specimen Type: SERUM No comment entered. Ordering Provider: FIDENCIO EDWARDS Report Released Date/Time: Feb 17, 2024 10:24 AM Reporting Lab: [facility] [address] [facility] [address] Performing Lab: [address] [address] CHOLESTEROL 165 mg/dL TRIGLYCERIDE 91 mg/dL 0-150 LDL calculated 74 mg/dL 0-129 CHOL/HDL 2.3 HDL CHOLESTEROL 73 mg/dL H 40-60 Feb 24, 2024 08:47 AM [facility] BASIC METABOLIC PANEL (non-fasting) Specimen Type: SERUM No comment entered. Ordering Provider: FIDENCIO EDWARDS Report Released Date/Time: Feb 17, 2024 10:24 AM Reporting Lab: [address] [address] Performing Lab: [address] [address] UREA NITROGEN 22 mg/dL 7-25 GLUCOSE 92 [...] and tobacco- related health factors from the [place] facility where the Encounter took place. Current Smoking Status This section includes the most current smoking, or tobacco-related health factor, from the [place] facility where the Encounter took place. Date/Time Current Smoking Status Comment Facil ity Aug 18, 2023 03:30 PM VA-TOBACCO NEVER USED [place] [facility] [place] [facility] Tobacco Use History This section includes a history of the smoking, or tobacco-related health factors, that were collected on or before the date of the Encounter. The data comes from the [place] facility where the Encounter took place. Date/Time Smoking Status/Tobacco Use Comment F acility Aug 01, 2022 10:30 AM VA-TOBACCO NEVER USED [place] [facility] [place] [facility] Jul 03, 2021 01:00 PM VA-TOBACCO NEVER USED VA [facility] [place] [facility] Jun 16, 2020 08:30 AM VA-TOBACCO NEVER USED VA [facility] [place] [facility] Dec 07, 2018 01:47 PM VA-TOBACCO NEVER USED VA [facility] [place] [facility] Dec 15, 2017 08:52 AM VA-TOBACCO NEVER USED VA [facility] [place] [facility] Jun 02, 2017 03:31 PM LIFETIME NON-TOBACCO USER VA [facility] [place] [facility] Jun 04, 2016 08:53 AM LIFETIME NON-TOBACCO USER VA [facility] [place] [facility] May 09, 2015 09:21 AM LIFETIME NON-TOBACCO USER . [facility] [place] [facility] Oct 27, 2012 10:50 AM LIFETIME NON-TOBACCO USER [facility] [place] [place] [facility] Encounter Notes: All associated encounter notes This section contains the clinical notes associated to the Encounter. Date/Time Encounter Note(s) Provider Source Mar 05, 2024 12:02 PM ADMINISTRATIVE NOTE: LOCAL TITLE: ADMINISTRATIVE NOTE STANDARD TITLE: ADMINISTRATIVE NOTE DATE OF NOTE: MAR 05, 2024@12:02 ENTRY DATE: MAR 05, 2024@12:02:23 AUTHOR: THA KOCH EXP COSIGNER: URGENCY: STATUS: COMPLETED AMSA SPOKE TO ON THE TELEPHONE AND INFORMED HIM OF UPCOMING APPT AND THAT LABWORK IS NOT NEEDED. /odilon/ THA KOCH AMSEvangelina Signed: 03/05/2024 12:02 THA KOCH [place] [facility]
--- OUTSIDE RECORDS SUMMARY | 2024-06-08 09:01 | XMS_ITS | Patient Health Record ---
Author Organization [facility] Address [address] [place] [address] Care Team Providers Care Oil Field Equipment Mechanic Name Role Phone Peter GLASGOW Bunch Primary Care Provider Unava Franck Cornejo Jr Unavailable [phone] ANA, CEMIL Unavailable Unavailable ALLERGIES Allergen (clinical [...] Problem Colon cancer screening (Z12.11) Active confirmed 215614033 Problem Epigastric pain (R10.13) Active confirmed 58479070 Problem long term care social worker (current) use of anticoagulants (Z79.01) Active confirmed 011677153 Problem Personal history of colonic polyps (Z86.010) Active confirmed 733786529 Problem Diverticulitis (K57.92) Active confirmed 893522901 Problem Gastroesophageal reflux disease with esophagitis (K21.0) Active confirmed 887541507 Problem Colon polyps (K63.5) Active confirmed 83017929 Problem GERD (gastroesophageal reflux disease) (K21.9) Active confirmed Gastroesophagea l reflux disease (973810604) Problem Gastroesophageal reflux disease, unspecified whether esophagitis present (K21.9) Active confirmed 973100811 PLAN OF TREATMENT Pending Test Test Name [...] Date MEDICARE OF [place] [address] [place] [address] [phone] [id number] BRY FLANNERY Self - patient is the insured [facility] SUPPLEMENTAL PLAN [address] [place] [address] [id number] BRY FLANNERY Self - patient is the insured MEDICAL [...]
--- OUTSIDE RECORDS SUMMARY | 2024-06-08 09:01 | XMS_ITS ---
Author Name Department of [place] Organization Department of [place] Address [address] [place] [address] Care Team Providers Care Powder Hand Name Role Phone FIDENCIO EDWARDS Primary Care [...] MEDICARE SUPPLEMEN JOVANNA Jun 26, 2007 PLAN [id number] ROSA FLANNERY PATIENT MEDICARE (WN) MEDICARE (M) PART B May 26, 2007 PART B [id number] ROSA FLANNERY PATIENT MEDICARE (WNR) MEDICARE (M) PART A Dec 24, 2002 PART A [id number] ROSA FLANNERY JOHANN PATIENT Selected Encounter [...] and adjustment of hearing aid SAVANAH TORIBIO [facility] Apr 06, 2024 11:45 AM SECONDARY Sensorineural hearing loss, bilateral SAVANAH TORIBIO [facility] Plan of Treatment: Future Appointments (+ 6 months) and Future Tests (+/- 45 days) The Plan of Treatment section includes future care activities for the patient from all [place] [facility]. This section includes future appointments and future [...] 21, 2024 10:30 AM AMBULATORY - MEDICINE [facility] Sep 14, 2024 09:00 AM AMBULATORY - MEDICINE [facility] [place] [facility] September 30, 2024 09:00 AM AMBULATORY - REHAB MEDICIN E [facility] Social History: Smoking Status (Most current) and Tobacco Use (All prior to encounter date) This section includes the most current, and the historical, smoking and tobacco- related health factors from the [place] facility where the Encounter took place. Current Smoking Status This section includes the most current smoking, or tobacco-related health factor, from the [place] facility where the Encounter took place. Date/Time Current Smoking Status Comment Romana gregg Aug 18, 2023 03:30 PM ME-TOBACCO [facility] Tobacco Use History This section includes a history of the smoking, or tobacco-related health factors, that were collected on or before the date of the Encounter. The data comes from the [place] facility where the Encounter took place. Date/Time Smoking Status/Tobacco Use Comment F he Aug 01, 2022 10:30 AM ME-TOBACCO NEVER USED [facility] [place] [facility] Jul 03, 2021 01:00 PM VA-TOBACCO NEVER USED [facility] [place] [facility] Jun 16, 2020 08:30 AM VA-TOBACCO NEVER USED [place] [facility]TRL [facility] [place] [facility] Dec 07, 2018 01:47 PM VA-TOBACCO NEVER USED [facility] [place] [facility] Dec 15, 2017 08:52 AM VA-TOBACCO NEVER USED [facility] [place] [facility] Jun 02, 2017 03:31 PM LIFETIME NON-TOBACCO USER [facility] [place] [facility] Jun 04, 2016 08:53 AM LIFETIME NON-TOBACCO USER [facility] [place] [facility] May 09, 2015 09:21 AM LIFETIME NON-TOBACCO USER . [place] [facility]TR[facility] [place] [facility] Oct 27, 2012 10:50 AM LIFETIME NON-TOBACCO USER [place] CNTR[facility] [place] [facility] Encounter Notes: All associated encounter notes This [...] Bilateral APPOINTMENT TYPE: Hearing Aid Check HISTORY/BACKGROUND: was seen for a hearing aid follow-up appointment, unaccompanied. He was fit with Phonak Virto M90 HSs on 10/02/21. He scheduled today's appointment for routine hearing aid maintenance. Hume also brought his 2018 PHONAK VIRTO B90 [...] RE Not Applicable NA /odilon/ RAIZA KIRK, [facility]-A STAFF LAUNDRY BAG PUNCH OPERATOR Signed: 04/06/2024 11:45 Receipt Acknowledged By: 04/06/2024 11:48 /odilon/ ILIANA CHAMPAGNE LEAD ELECTRIC MOTORMAN SENIOR,SAVANAH POWELL CNTRL W[facility]N [facility]
--- OUTSIDE RECORDS SUMMARY | 2024-06-08 09:01 | XMS_ITS ---
Author Name [place] Organization [place] Address [address] [place] [address] Care Team Providers Care Technical Artist Name Role Phone FIDENCIO COTTON Primary Care [...] Douglas's Name Patient's Relationship to Policy Douglas [facility] MEDICARE SUPPLEMEN JOVANNA Jun 26, 2007 PLAN [id number] ROSA FLANNERY PATIENT MEDICARE (WN) MEDICARE (M) PART B May 26, 2007 PART B [id number] ROSA FLANNERY PATIENT MEDICARE (WNR) MEDICARE (M) PART A Dec 24, 2002 PART A [id number] ROSA FLANNERY TorresJAGDISH PATIENT Selected Encounter This section includes the information on record at [place] for the Encounter. Date/Time Encounter Type Encounter Description Reason Provider Source Sep 16, 2023 07:34 AM Outpatient Encounter PRIMARY CARE/MEDICINE GABRIELLA LEDEZMA Encounter Template Text not used by VA Social History: Smoking Status (Most current) and Tobacco Use (All prior to encounter date) This section includes the most current, and the historical, smoking and tobacco- related health factors from the [place] facility where the Encounter took place. Current Smoking Status This section includes the most current smoking, or tobacco-related health factor, from the [place] facility where the Encounter took place. Date/Time Current Smoking Status Comment Romana gregg Aug 18, 2023 03:30 PM VA-TOBACCO NEVER USED [place] [facility] [place] [facility] Tobacco Use History This section includes a history of the smoking, or tobacco-related health factors, that were collected on or before the date of the Encounter. The data comes from the [place] facility where the Encounter took place. Date/Time Smoking Status/Tobacco Use Comment Leonard acmatthias Aug 01, 2022 10:30 AM VA-TOBACCO NEVER USED [facility] [place] [facility] Jul 03, 2021 01:00 PM VA-TOBACCO NEVER USED [facility] [place] [facility] Jun 16, 2020 08:30 AM VA-TOBACCO NEVER USED [facility] [place] [facility] Dec 07, 2018 01:47 PM VA-TOBACCO NEVER USED [facility] [place] [facility] Dec 15, 2017 08:52 AM VA-TOBACCO NEVER USED [facility] [place] [facility] Jun 02, 2017 03:31 PM LIFETIME NON-TOBACCO USER [facility] [facility] Jun 04, 2016 08:53 AM LIFETIME NON-TOBACCO USER [facility] [place] [facility] May 09, 2015 09:21 AM LIFETIME NON-TOBACCO USER . [facility] [facility] Oct 27, 2012 10:50 AM LIFETIME NON-TOBACCO USER [facility] [place] [facility] Encounter Notes: All associated encounter notes This section contains the clinical notes associated to the Encounter. Date/Time Encounter Note(s) Provider Source Sep 16, 2023 08:34 AM ADDENDUM: LOCAL TITLE: Addendum STANDARD TITLE: ADDENDUM DATE OF NOTE: SEP 16, 2023@08:34:17 ENTRY DATE: SEP 16, 2023@08:34:18 AUTHOR: GABRIELLA LEDEZMA EXP COSIGNER: URGENCY: STATUS: COMPLETED Defer to PCP for consideration of renewal of requested medication. /odilon/ GABRIELLA LEDEZMA RN REGISTERED NURSE Signed: 09/16/2023 08:34 Receipt Acknowledged By: 09/16/2023 10:30 /odilon/ FIDENCIO COTTON D.O. PHYSICIAN === --- Original Document --- 09/16/23 PRIMARY CARE SECURE MESSAGING: ------Original Message ------ Sent: 09/16/2023 08:09 AM ET From: BRY FLANNERY To: GRACET _ PRIMARY CARE_[facility] Subject: Medication:tamsulosin 0.4mg renewal Dr Cotton My prescription for tamsulosin has runout. I have been a patient of Dr. 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 He has referred me to you as my primary doctor and I have an appointment to see you on Mar 19. Would you please renew my script. Looking forward to meeting you. Dr. Flannery ------Original Message ------ Sent: 09/16/2023 08:34 AM ET From: GABRIELLA LEDEZMA To: BRY FLANNERY Subject: Medication:tamsulosin 0.4mg renewal Good Morning Dr. Flannery, I will forward your request for renewal to Dr. Cotton. Respectfully, Gabriella Ledezma RN /odilon/ GABRIELLA LEDEZMA RN REGISTERED NURSE Signed: 09/16/2023 08:34 GABRIELLA LEDEZMA [place] [facility] [place] [facility] Sep 16, 2023 07:34 AM PRIMARY CARE SECUR E MESSAGING: LOCAL TITLE: PRIMARY CARE SECURE MESSAGING STANDARD TITLE: PRIMARY CARE SECURE MESSAGING DATE OF NOTE: SEP 16, 2023@07:34 ENTRY DATE: SEP 16, 2023@08:34:09 AUTHOR: GABRIELLA LEDEZMA EXP COSIGNER: URGENCY: STATUS: COMPLETED PRIMARY CARE SECURE MESSAGING Has ADDENDA ------Original Message ------ Sent: 09/16/2023 08:09 AM ET From: BRY FLANNERY To: GRCAET _ PRIMARY CARE_[facility] Subject: Medication:tamsulosin 0.4mg renewal Dr Cotton My prescription for tamsulosin has runout. I have been a patient of Dr. 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 He has referred me to you as my primary doctor and I have an appointment to see you on Mar 19. Would you please renew my script. Looking forward to meeting you. Dr. Flannery ------Original Message ------ Sent: 09/16/2023 08:34 AM ET From: GABRIELLA LEDEZMA To: BRY FLANNERY Subject: Medication:tamsulosin 0.4mg renewal Good Morning Dr. Flannery, I will forward your request for renewal to Dr. Cotton. Respectfully, Gabriella Ledezma RN /odilon/ GABRIELLA LEDEZMA RN REGISTERED NURSE Signed: 09/16/2023 08:34 09/16/2023 ADDENDUM STATUS: COMPLETED Defer to PCP for consideration of renewal of requested medication. /odilon/ GABRIELLA LEDEZMA RN REGISTERED NURSE Signed: 09/16/2023 08:34 Receipt Acknowledged By: * AWAITING SIGNATURE * FIDENCIO COTTON [facility]
--- OUTSIDE RECORDS SUMMARY | 2024-06-08 09:01 | XMS_ITS ---
Author Name Department [place] Organization [place] Address [address] [place] [address] Care Team Providers Care Food Or Baggage Handling Rampman Name Role Phone FIDENCIO EDWARDS Primary Care [...] Douglas's Name Patient's Relationship to Policy Douglas [facility] HEALTH PLAN MEDICARE SUPPLEMEN JOVANNA Jun 26, 2007 PLANMY [id number] ROSA FLANNERY PATIENT MEDICARE (WNR) MEDICARE (M) PART B May 26, 2007 PART B [id number] ROSA FLANNERY PATIENT MEDICARE (WNR) MEDICARE (M) PART A Dec 24, 2002 PART A [id number] ORSA FLANNERY TorresJAGDISH PATIENT Selected Encounter This section includes the information on record at [place] for the Encounter. Date/Time Encounter Type Encounter Description Reason Provider Source Mar 19, 2024 09:00 AM OFFICE O/P EST MOD 30 MIN PRIMARY CARE/MEDICINE ICD-10-CM E03.9 Hypothyroidism, unspecified FIDENCIO EDWARDS [facility] Encounter Template Text not used by [place] Assessments - Encounter Diagnoses This section includes the primary and secondary diagnoses documented for the Encounter. Date/Time Primary/Secondary Diagnosis Diagnosis Name Provider Source Mar 19, 2024 02:53 PM PRIMARY Hypothyroidism, unspecified FIDENCIO EDWARDS [facility] [place] [facility] Mar 19, 2024 02:53 PM SECONDARY Essential (primary) hypertension FIDENCIO EDWARDS [place] [facility] [place] [facility] Mar 19, 2024 02:53 PM SECONDARY Gastro-esophageal reflux disease without esophagitis FIDENCIO EDWARDS [facility] [place] [facility] Mar 19, 2024 02:53 PM SECONDARY Paroxysmal atrial fibrillation FIDENCIO EDWARDS [facility] [place] [facility] Mar 19, 2024 02:53 PM SECONDARY Unspecified diastolic (congestive) heart failure FIDENCIO EDWARDS [facility] Plan of Treatment: Future Appointments (+ 6 months) and Future Tests (+/- 45 days) The Plan of Treatment section includes future care activities for the patient from all [place] [facility] This section includes future appointments and future [...] 10:00 AM AMBULATORY - [facility] Jun 21, 2024 10:30 AM AMBULATORY - [facility]IC[facility] Sep 14, 2024 09:00 AM AMBULATORY - MEDICINE [facility] Lab Results: +/- 30 days of the encounter This section includes the Chemistry and Hematology Lab Results on record with [place] for the patient. Radiology Reports and Pathology Reports are provided separately, in subsequent sections. Lab Results This section contains the Chemistry/Hematology Results that were resulted 30 days before or 30 daysafter the date of the Encounter. Date/Time Source Result Type Result - Unit Interpretation Reference Range Comment Feb 24, 2024 08:47 AM [facility] LIPID PANEL, NON FASTING Specimen Type: SERUM No comment entered. Ordering Provider: FIDENCIO EDWARDS Report Released Date/Time: Feb 17, 2024 10:24 AM Reporting Lab: [facility] [address] [facility] [address] Performing Lab: [facility] [address] [facility] [address] CHOLESTEROL 165 mg/dL TRIGLYCERIDE 91 mg/dL 0-150 LDL calculated 74 mg/dL 0-129 CHOL/HDL 2.3 HDL CHOLESTEROL 73 mg/dL H 40-60 Feb 24, 2024 08:47 AM [facility] BASIC METABOLIC PANEL (non-fasting) Specimen Type: SERUM No comment entered. Ordering Provider: FIDENCIO EDWARDS Report Released Date/Time: Feb 17, 2024 10:24 AM Reporting Lab: [facility] [address] [facility] [address] Performing Lab: [address] [address] UREA NITROGEN 22 mg/dL 7-25 GLUCOSE 92 [...] Source Mar 19, 2024 02:49 PM 150/78 [facility] Mar 19, 2024 09:08 AM 97.7 51 168/78 16 96 158 28 [facility] Social History: Smoking Status (Most current) and Tobacco Use (All prior to encounter date) This section includes the most current, and the historical, smoking and tobacco- related health factors from the [place] facility where the Encounter took place. Current Smoking Status This section includes the most current smoking, or tobacco-related health factor, from the [place] facility where the Encounter took place. Date/Time Current Smoking Status Comment Romana gregg Aug 18, 2023 03:30 PM VA-TOBACCO NEVER USED [facility] [place] [facility] Tobacco Use History This section includes a history of the smoking, or tobacco-related health factors, that were collected on or before the date of the Encounter. The data comes from the [place] facility where the Encounter took place. Date/Time Smoking Status/Tobacco Use Comment F acmatthias Aug 01, 2022 10:30 AM VA-TOBACCO NEVER USED [facility] [place] [facility] Jul 03, 2021 01:00 PM VA-TOBACCO NEVER USED [facility] [place] [facility] Jun 16, 2020 08:30 AM VA-TOBACCO NEVER USED [facility] [place] [facility] Dec 07, 2018 01:47 PM VA-TOBACCO NEVER USED [facility] [place] [facility] Dec 15, 2017 08:52 AM VA-TOBACCO NEVER USED [facility] [place] [facility] Jun 02, 2017 03:31 PM LIFETIME NON-TOBACCO USER [facility] [place] [facility] Jun 04, 2016 08:53 AM LIFETIME NON-TOBACCO USER [place] [facility] [place] [facility] May 09, 2015 09:21 AM LIFETIME NON-TOBACCO USER . [facility] [place] [facility] Oct 27, 2012 10:50 AM LIFETIME NON-TOBACCO USER [facility] [place] [facility] Encounter Notes: All associated encounter notes This section contains the clinical notes associated to the Encounter. 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 CARE TEAM Community Primary Care Provider: all have retired [place] Specialists: Community Specialists: gypsum roofer--Ricky Macias M.D, [place] [facility]- Dr. Lebronord urology- Dr. Villa Aguilar HISTORY PERIOD OF SERVICE - [place] SERVICE CONNECTED % - NONE FOUND HISTORY OF PRESENT ILLNESS Patient presents today for routine follow-up: some sob [place]4 years, question of pulm fibrosis gypsum roofer has him scheudled for a stress test [...] pain 8. Paroxysmal atrial fibrillation (SNOMED CT 925657915) s/p ablation x 2, now on amiodarone gypsum roofer--Ricky Macias M.D 9. Essential hypertension (SNOMED CT 09484437) 10. Hypercholesterolemia (SNOMED CT 34298459) 11. 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 Paroxysmal atrial fibrillation (SNOMED CT 694794080) s/p ablation x 2, now on amiodarone gypsum roofer--Ricky Macias M.D 9. Essential hypertension (SNOMED CT 27219066)- elevated today- checks at home - usually <130/80 10. Hypercholesterolemia (SNOMED CT 89599832) 11. History of male erectile disorder (SNOMED CT 966397358) FOLLOW UP f/u in 6 mo VISIT [...] of active outpatient prescriptions dispensed from this NH (local) and dispensed from another NH or [facility] facility (remote) as well as inpatient [...] D.O. PHYSICIAN Signed: 03/19/2024 14:53 FIDENCIO EDWARDS [place] [facility] Mar 19, 2024 09:02 AM PREVENTIVE MEDICINE [...] due to responses to other questions. 5. [place] numb or detached from people, activities, or your surroundings? Response not required due to responses to other questions. 6. [place] guilty or unable to stop blaming yourself [...] License Practical Nurse Signed: 03/19/2024 09:15 YOGESH TALBERT CNTRFabian WSTRDavid [facility]
--- OUTSIDE RECORDS SUMMARY | 2024-06-08 09:01 | XMS_ITS | Encounter Summary ---
Author Name [place] Address [address] [place] [address] Care Team Providers Care Deck Specialist Name Role Phone FIDENCIO EDWARDS Primary Care [...] MEDICARE SUPPLEMEN JOVANNA Jun 26, 2007 PLAN [id number] ROSA FLANNERY PATIENT MEDICARE (WNR) MEDICARE (M) PART B May 26, 2007 PART B [id number] ROSA FLANNERY PATIENT MEDICARE (WNR) MEDICARE (M) PART A Dec 24, 2002 PART A [id number] ROSA FLANNERY TorresJAGDISH PATIENT Selected Encounter This section includes the information on record at [place] for the Encounter. Date/Time Encounter Type Encounter Description Reason Pro vider Source Feb 26, 2024 12:00 AM Outpatient Encounter EVENT (HISTORICAL) IHE Encounter Template Text not used by VA Plan of Treatment: Future Appointments (+ 6 months) and Future Tests (+/- 45 days) The Plan of Treatment section includes future care activities for the patient from all [place] treatmentfacilities. This section includes future appointments and future orders which are active, pending or scheduled. Future Appointments This section includes appointments that were scheduled to occur 6 months from the date of the Encounter, up to a maximum of 20 appointments. The data comes from all [place] treatment facilities. Appointment Date/Time Appointment Type Appointme nt Facility Name Mar 19, 2024 09:00 AM AMBULATORY - MEDICINE [facility] Apr 06, 2024 10:00 AM AMBULATORY - [facility]AB [facility] Jun 21, 2024 10:30 AM [facility] Lab Results: +/- 30 days of the encounter This section includes the Chemistry and Hematology Lab Results on record with [place] for the patient. Radiology Reports and Pathology Reports are provided separately, in subsequent sections. Lab Results This section contains the Chemistry/Hematology Results that were resulted 30 days before or 30 daysafter the date of the Encounter. Date/Time Source Result Type Result - Unit Interpretation Reference Range Comment Feb 24, 2024 08:47 AM [facility] LIPID PANEL, NON FASTING Specimen Type: SERUM No comment entered. Ordering Provider: FIDENCIO EDWARDS Report Released Date/Time: Feb 17, 2024 10:24 AM Reporting Lab: [facility] [address] [facility] [address] Performing Lab: [address] [address] CHOLESTEROL 165 mg/dL TRIGLYCERIDE 91 mg/dL 0-150 LDL calculated 74 mg/dL 0-129 CHOL/HDL 2.3 HDL CHOLESTEROL 73 mg/dL H 40-60 Feb 24, 2024 08:47 AM [facility] BASIC METABOLIC PANEL (non-fasting) Specimen Type: SERUM No comment entered. Ordering Provider: FIDENCIO EDWARDS Report Released Date/Time: Feb 17, 2024 10:24 AM Reporting Lab: [address] [address] Performing Lab: [address] [address] UREA NITROGEN 22 mg/dL 7-25 GLUCOSE 92 mg/dL 65-100 SODIUM 139 mmol/L 135-145 POTASSIUM 4.4 mmol/L 3.5-5.0 CHLORIDE 105 mmol/L 100-110 CO2 24 meq/L 20-30 CREATININE, Serum 1.04 mg/dL 0.50-1.40 eGFR(CKD-EPI 2020) 70 mL/min >60 Immunizations: All administered on the encounter date This section contains immunizations associated to the Encounter. Immunization Series Date Issued Reaction Comments INFLUENZA, UNSPECIFIED FORMULATION Feb 26, 2024 Social History: Smoking Status (Most current) and Tobacco Use (All prior to encounter date) This section includes the most current, and the historical, smoking and tobacco- related health factors from the [place] facility where the Encounter took place. Current Smoking Status This section includes the most current smoking, or tobacco-related health factor, from the [place] facility where the Encounter took place. Date/Time Current Smoking Status Comment Romana monacoy Aug 18, 2023 03:30 PM VA-TOBACCO NEVER USED [place] [facility] [place] [facility] Tobacco Use History This section includes a history of the smoking, or tobacco-related health factors, that were collected on or before the date of the Encounter. The data comes from the [place] facility where the Encounter took place. Date/Time Smoking Status/Tobacco Use Comment Leonard acility Aug 01, 2022 10:30 AM VA-TOBACCO NEVER USED [facility] [place] [facility] Jul 03, 2021 01:00 PM VA-TOBACCO NEVER USED [facility] [facility] Jun 16, 2020 08:30 AM VA-TOBACCO NEVER USED [facility] [facility] Dec 07, 2018 01:47 PM VA-TOBACCO NEVER USED [facility] [place] [facility] Dec 15, 2017 08:52 AM VA-TOBACCO NEVER USED [facility] [place] [facility] Jun 02, 2017 03:31 PM LIFETIME NON-TOBACCO USER [facility] [facility] Jun 04, 2016 08:53 AM LIFETIME NON-TOBACCO USER [facility] [facility] May 09, 2015 09:21 AM LIFETIME NON-TOBACCO USER . [place] [facility] [place] [facility] Oct 27, 2012 10:50 AM LIFETIME NON-TOBACCO USER [place] [facility] [facility]
== END ==
LOC: HO.CARD 08:40
PROVIDERS: PCP Internal Medicine; Visit Provider Internal Medicine Cardiovascular Disease
DX: I50.32 Chronic diastolic (congestive) heart failure (principal)
CPT/HCPCS: 93306

== ENCOUNTER → 2024-06-08 08:46 | Outpatient (BNV) | payer MEDICARE, SELFPAY | PROVIDERS: PCP Internal Medicine; Visit Provider Internal Medicine | DX: I50.32 Chronic diastolic (congestive) heart failure (principal); I51.7 Cardiomegaly; I35.1 Nonrheumatic aortic (valve) insufficiency; I37.1 Nonrheumatic pulmonary valve insufficiency | CPT/HCPCS: 93306 ==

== ENCOUNTER 2024-06-23 08:36 | Outpatient (AMB) | payer MEDICARE, SELFPAY ==
[2024-06-23 08:38] VITALS: BP 128/84; PULSE 50; BMI 28.0
--- NOTE | 2024-06-23 08:38 | MHC.OFFVIS ---
Vital Signs 06/23/24 08:38 Height 5 ft 4 in Weight 163 lb 2.273 oz BMI 28.0 BP 128/84 Blood Pressure Location Lt brachial Position Sitting Pulse 50 Intake Visit Reasons: 3 mth fu after stress/echo and Dr Caceres Intake Note: 3 month follow-up after stress, echo and Dr Caceres with ekg has had afib twice in the past 3 months stopped coffee this is helping c/o sob Dial Equipment Engineer Required: No Allergies flores [cherries] Allergy (Severe, Verified 03/01/24 08:46) Anaphylaxis amoxicillin [Augmentin] Allergy (Unknown, Verified 03/01/24 08:46) Unknown clavulanic acid [Augmentin] Allergy (Unknown, Verified 03/01/24 08:46) unknown Medication List - Last Reconciled 06/23/24 by Ricky Macias MD amiodarone 200 mg PO DAILY 90 days amlodipine 10 mg PO DAILY apixaban (Eliquis) 5 mg PO BID atorvastatin 20 mg PO BEDTIME finasteride 5 mg PO DAILY furosemide 20 mg PO DAILY levothyroxine 75 mcg PO DAILY 90 days omeprazole 20 mg PO DAILY tamsulosin 0.4 mg PO BEDTIME 30 days HPI Comments Details: Diam comes for follow-up. Continues to have symptoms of exertional shortness of breath but he is able to carry on his day-to-day activities without shortness of breath. He did see electrophysiology at [facility] and is currently wanting to defer pacemaker placement. He said he was symptoms get worse he would consider the same. He had 2 episodes of atrial fibrillation and had increased dose of amiodarone both times and symptoms resolved. He said he does not feel well when his heart is in atrial fibrillation and has symptoms of shortness of breath and not feeling well. He denies any lightheadedness, syncope. No bleeding issues or neurologic events. No orthopnea, PND, leg edema. Blood pressure is generally well controlled with high his blood pressure in the 135 systolic range. Said when he exercise in the treadmill heart rate goes up to 90 beats per minute [facility] Medical History Pure hypercholesterolemia Cervical disc disease Essential hypertension (HFpEF) heart failure with preserved ejection fraction Sick sinus syndrome Acquired hypothyroidism Diastolic dysfunction Retention of urine Angioedema Acute bacterial prostatitis Prostatitis Hearing aid worn Atrial fibrillation Pulmonary nodules Hyperkalemia Overweight (BMI 25.0-29.9) Vitamin D deficiency Vitamin B12 deficiency Chronic kidney disease, stage II (mild) Chronic gastritis without bleeding Sinus bradycardia Right bundle branch block (RBBB) determined by electrocardiography Hyperlipidemia HTN (hypertension) History of cardiomyopathy History of congestive heart failure Paroxysmal atrial fibrillation CAD (coronary artery disease) On amiodarone therapy Surgical History Hx of ventral hernia repair Hx of hand surgery History of prostate surgery Hx of colostomy History of colon resection Hx of knee surgery Hx of colonoscopy Hx of endoscopy History of radiofrequency ablation procedure for cardiac arrhythmia History of cardioversion Family History Father No problems noted. Mother CVD (cardiovascular disease) CHF (congestive heart failure) Social History Household Members: Spouse Housing: House Do you presently have visiting nurse or other home services: Yes Alcohol intake: current Alcohol intake frequency: holidays/special occasions only Alcohol type: wine Comment: pt refuses bed alarm Patient Tobacco Use Status: Never used Tobacco e-Cigarette/Vaping Use: Never Used Second Hand Smoke Exposure: No Advance Directives Date on File: 04/27/08 service: Yes Current occupational status: retired Cognitive needs: No Hearing needs: Yes Vision needs: Yes Review of Systems Const Denies chills, Denies fatigue, Denies fever(s), Denies frequent falls, Denies weakness, Denies weight gain and Denies weight loss ENT Denies dizziness Card Denies chest pain, Denies leg edema, Denies lightheadedness, Denies palpitations, Denies dyspnea, Denies dyspnea on exertion, Denies orthopnea and Denies other (loss of consciousness) Resp Denies cough, Denies dyspnea and Denies dyspnea on exertion GI Denies hematochezia and Denies change in stool character Musc Denies abnormal gait, Denies muscle weakness, Denies numbness, Denies radiating pain into limb and Denies tingling Neuro Denies abnormal gait, Denies dizziness, Denies frequent falls, Denies numbness, Denies tingling and Denies weakness Endo Denies fatigue and Denies palpitations Physical Exam Vital Signs: Last Vital Signs Pulse 50 06/23/24 08:38 BP 128/84 01/29/25 08:38 BMI result Body Mass Index 28.0 Const General: cooperative, comfortable, no acute distress, alert and awake Nutritional Appearance: overweight Orientation/consciousness: patient oriented x3 Limitations: no limitations Neck Neck: Yes trachea midline, Yes supple and Yes no JVD (Positive AJR) Resp Effort & Inspection: normal respiratory effort Auscultation: clear to auscultation bilaterally Cardio Jugular venous distension: no JVD Palpation: normal PMI Rate: bradycardic Rhythm: regular rhythm Heart sounds: S1 normal heart sound present, S2 normal heart sound present, no click, no gallops, no murmurs and Other heart sounds present (S4 present) GI Auscultation: normal bowel sounds Skin General skin exam: no rashes or lesions noted Neuro General: patient oriented x3 and no focal motor deficits Extrem General: No clubbing, No cyanosis and Yes edema Office Procedures EKG Details: EKG shows sinus bradycardia with first-degree AV block with right bundle-branch block with septal QS pattern without any changes from before [id number], Complete Assessment & Plan Assessment & Plan (1) (HFpEF) heart failure with preserved ejection fraction: Code(s): I50.30 - Unspecified diastolic (congestive) heart failure Category: Medical Qualifiers: Heart failure chronicity: chronic Qualified Code(s): I50.32 - Chronic diastolic (congestive) heart failure Plan: Heart failure preserved ejection fraction, clinically euvolemic and well compensated has done extremely well with rhythm control approach. Does get symptomatic when he goes into recurrent atrial fibrillation most likely related to diastolic dysfunction as well as loss of atrial kick. Continue current low-dose diuretic therapy. Daily weight monitoring avoidance salt loading was discussed. Continue aggressively to pursue rhythm control approach. Continue aggressive blood pressure control. Additional diuretics as need be. If he has recurrent symptoms may consider use of alternative agent such Jardiance in addition to diuretic therapy. (2) Sick sinus syndrome: Code(s): I49.5 - Sick sinus syndrome Category: Medical Plan: Sick sinus syndrome sinus bradycardia with symptoms exertional shortness of breath with chronotropic incompetence. Although he said he can live with this and he has good lifestyle. He plays golf and exercises on a regular basis and says does not have significant life limitations. I discussed that pacemaker might give him a higher heart rate and as a result cardiac output with his activity and may improve his symptoms. He wants to defer it and consider it if necessary in fall time. I think this is okay at this point in time. Advised to call me with worsening symptoms and/or syncope that may require more sooner pacemaker placement. He understands and agrees. (3) Paroxysmal atrial fibrillation: Comment: Myocardial perfusion study done on 06/13/2020 came out normal Echocardiogram done in April 2020 also came out normal, with normal left ventricular systolic function and ejection fraction estimated between 65-70%. 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 and this will be monitored closely Code(s): I48.0 - Paroxysmal atrial fibrillation Category: Medical Plan: Paroxysmal atrial fibrillation which has been difficult control. As currently on amiodarone therapy at 200 mg daily. Thyroid is been replaced. Has developed sick sinus syndrome as above. Although I do not think that reduction amiodarone would be possible given that he was had recurrent episodes of atrial fibrillation 200 mg amiodarone. 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 He understands. Continue monitor for the same. Continue full oral anticoagulation, currently on Eliquis 5 mg b.i.d. which she was tolerated despite his prior history of GI bleeding. Continue to monitor his renal function quarterly. Continue aggressive blood pressure control. Avoidance of stimulants such as caffeine was discussed which is already doing. We discussed about possible redo ablation with a newer technology. He is currently not too interested in it. (4) HTN (hypertension): Code(s): I10 - Essential (primary) hypertension Category: Medical Qualifiers: Hypertension type: essential hypertension Qualified Code(s): I10 - Essential (primary) hypertension Plan: Hypertension which is currently well optimized advised to monitor blood pressure at home. Blood pressure up to systolic 135 is okay. Continue amlodipine therapy. Low-salt diet was discussed. Maintain activity level as tolerated. Will follow up in the clinic in 6 months time, sooner p.r.n.. Greater than 40 minutes was spent in managing his complex care Coding Level of Care Code Est Pt Level 5 (53569) Complex EM visit Add On G2211 Diagnoses Chronic heart failure with preserved ejection fraction I50.32 Heart failure chronicity: chronic Sick sinus syndrome I49.5 Paroxysmal atrial fibrillation I48.0 Essential hypertension I10 Hypertension type: essential hypertension CPT Codes EKG - CPT: 61702-[id number], Complete ([id number])
--- OUTSIDE RECORDS SUMMARY | 2024-06-23 08:57 | XMS_ITS | Encounter Summary ---
Author Name [facility] Address [address] [place] [address] Care Team Providers Care Superintendent Division Name Role Phone FIDENCIO EDWARDS Primary Care [...] MEDICARE SUPPLEMEN JOVANNA Jun 26, 2007 PLANMY [id number] ROSA FLANNERY PATIENT MEDICARE (WNR) MEDICARE (M) PART B May 26, 2007 PART B [id number] ROSA FLANNERY PATIENT MEDICARE (WNR) MEDICARE (M) PART A Dec 24, 2002 PART A [id number] ROSA FLANNERY JOHANN PATIENT Selected Encounter This section includes the information on record at [place] for the Encounter. Date/Time Encounter Type Encounter Description Reason Provider Source Jun 21, 2024 10:30 AM COMPRE OPH EXAM EST PT 1/> OPTOMETRY ICD-10-CM Z96.1 Presence of intraocular lens MERHAR,BHAVANI B IHE Encounter Template Text not used by [place] Assessments - Encounter Diagnoses This section includes the primary and secondary diagnoses documented for the Encounter. Date/Time Primary/Secondary Diagnosis Diagnosis Name Provider Source Jun 21, 2024 02:59 PM PRIMARY Presence of intraocular lens BHAVANI CUBA [facility] Jun 21, 2024 02:59 PM SECONDARY Regular astigmatism, bilateral BHAVANI CUBA B [facility] [place] Plan of Treatment: Future Appointments (+ [...] 14, 2024 09:00 AM AMBULATORY - MEDICINE [facility] [place] [facility] September 30, 2024 09:00 AM AMBULATORY - REHAB MEDICIN E [place] [facility] [place] Social History: Smoking Status (Most current) [...] 18, 2023 03:30 PM VA-TOBACCO NEVER USED [place] [facility] [facility] Tobacco Use History This section includes a history of the smoking, or tobacco-related health factors, that were collected on or before the date of the Encounter. The data comes from the [place] facility where the Encounter took place. Date/Time Smoking Status/Tobacco Use Comment F acility Aug 01, 2022 10:30 AM VA-TOBACCO NEVER USED [place] [facility] [place] Jul 03, 2021 01:00 PM VA-TOBACCO NEVER USED [facility] Jun 16, 2020 08:30 AM VA-TOBACCO NEVER USED [place] [facility] [place] Dec 07, 2018 01:47 PM VA-TOBACCO NEVER USED [facility] [place] Dec 15, 2017 08:52 AM VA-TOBACCO NEVER USED [facility] [place] Jun 02, 2017 03:31 PM LIFETIME NON-TOBACCO USER [facility] [place] Jun 04, 2016 08:53 AM LIFETIME NON-TOBACCO USER [facility] [place] May 09, 2015 09:21 AM LIFETIME NON-TOBACCO USER . [facility] [place] [facility] Oct 27, 2012 10:50 AM LIFETIME NON-TOBACCO USER [facility] [place] Encounter Notes: All associated encounter notes This section contains the clinical notes associated to the Encounter. Date/Time Encounter Note(s) Provider Source Jun 21, 2024 10:19 AM OPTOMETRY NOTE: LOCAL TITLE: OPTOMETRY NOTE STANDARD TITLE: OPTOMETRY NOTE DATE OF NOTE: JUN 21, 2024@10:19 ENTRY DATE: JUN 21, 2024@10:19:38 AUTHOR: BHAVANI CUBA EXP COSIGNER: URGENCY: STATUS: COMPLETED 88 WHITE MALE NOT OR Last eye exam: 06/18/23 Reason for Visit/CC: patient here for a comprehensive eye exam. Had cataract surgery [facility] in Jan/feb 2024, very happy with vision afterwards but [...] Description Z77.29 Exposure to potentially hazardous substance ([facility] [id number]) E03.9 Hypothyroidism ([facility] [id number]) I50.30 Diastolic heart failure ([facility] [id number]) N41.1 Chronic prostatitis ([facility] [id number]) Z79.01 Long-term current use of anticoagulant ([facility] [id number]) K21.9 Gastroesophageal reflux disease ([facility] [id number]) M54.5 Low back pain ([facility] [id number]) I48.0 Paroxysmal atrial fibrillation ([facility] [id number]) I10. Essential hypertension ([facility] [id number]) E78.00 Hypercholesterolemia ([facility] [id number]) F52.21 History of male erectile disorder ([facility] [id number]) Other: SYSTEMIC MEDICATIONS/OCULAR MEDICATIONS: Active and Recently [...] refraction and tonometry all performed now by soil field technician and reviewed by attending provider. Dilation drops instilled by soil field technician after angle assessment and dilation warning [...] this [facility] (local) and dispensed from another [place] or DoD facility (remote) as well as [...] complete. Please check JLV. Allergies/ADRs (Tool #5) [facility] ALLERGY/ADR -------- No Remote Allergy/ADR Data available for this patient [place] [facility] [place] [facility]IN [facility] [place] [facility] LISINOPRIL Med Recon NoGlossary (Tool #1) INCLUDED IN THIS LIST: Alphabetical list of active outpatient prescriptions dispensed from this [facility] (local) and dispensed from another [place] or DoD facility (remote) as well as inpatient orders (local pending and active), local clinic medications, locally documented non-VA medications, and local prescriptions that have or been discontinued in the past 90 days. Non-VA Meds Last Documented On: Mar 19, 2024 NOTE The display of VA prescriptions dispensed from another [place] or DoD facility (remote) is limited to active outpatient prescription entries matched to National Drug File at the originating site and may not include some items such as investigational drugs, compounds, etc. NOT INCLUDED IN THIS LIST: Medications self-entered by the patient into personal health records (i.e. [facility]) are NOT included in this list. Non-VA medications documented outside this [place], remote inpatient orders (regardless of status) and [...] ONE TABLET BY MOUTH TWICE DAILY Rx# [id number] Last Released: 05/28/24 Qty/Days Supply: Rx Expiration Date: 08/11/24 Refills Remainin OUTPT ATORVASTATIN CALCIUM 20MG TAB (Status = Active) TAKE ONE TABLET BY MOUTH EVERY DAY FOR CHOLESTEROL Rx# [id number] Last Released: 05/28/24 Qty/Days Supply: Rx Expiration Date: 08/11/24 Refills Remainin OUTPT FINASTERIDE 5MG TAB (Status = Active) TAKE ONE TABLET BY MOUTH ONCE DAILY FOR PROSTATE Rx# [id number] Last Released: 05/28/24 Qty/Days Supply: Rx Expiration Date: 08/11/24 Refills Remainin Non-VA FUROSEMIDE 20MG TAB TAKE ONE TABLET BY MOUTH OUTPT LEVOTHYROXINE NA (SYNTHROID) 75MCG TAB (Status = Active) TAKE ONE TABLET BY MOUTH EVERY MORNING 30 MINUTES BEFORE BREAKFAST FOR THYROID TAKE ON AN EMPTY STOMACH WITH A FULL GLASS OF WATER Rx# [id number] Last Released: 03/22/24 Qty/Days Supply: Rx Expiration Date: 03/20/25 Refills Remainin Indication: FOR THYROID OUTPT OMEPRAZOLE 20MG EC CAP (Status = Active) TAKE TWO CAPSULES BY MOUTH EVERY MORNING 30 MINUTES BEFORE BREAKFAST FOR STOMACH ULCER Rx# [id number] Last Released: 03/22/24 Qty/Days Supply: Rx Expiration Date: 08/11/24 Refills Remainin Indication: FOR STOMACH ULCER OUTPT SILDENAFIL CITRATE 100MG TAB (Status = Active) TAKE ONE TABLET BY MOUTH EVERY DAY NEEDED TAKE 1 HOUR PRIOR TO SEXUAL ACTIVITY Rx# [id number] Last Released: 03/22/24 Qty/Days Supply: Rx Expiration Date: 03/20/25 Refills Remainin OUTPT TAMSULOSIN HCL 0.4MG CAP (Status = Active) TAKE ONE CAPSULE BY MOUTH ONCE DAILY Rx# [id number] Last Released: 03/22/24 Qty/Days Supply: Rx Expiration Date: 09/16/24 Refills Remainin SUPPLIES /leo CUBA OD It Security Administrator Signed: 06/21/2024 15:01 BHAVANI CUBA [facility] Jun 21, 2024 08:35 AM OPTOMETRY FLAG DECORATOR NOTE: LOCAL TITLE: OPTOMETRY FLAG DECORATOR NOTE STANDARD TITLE: OPTOMETRY FLAG DECORATOR NOTE DATE OF NOTE: JUN 21, 2024@08:35 ENTRY DATE: JUN 21, 2024@08:36:01 AUTHOR: JAKY SANCHEZ EXP COSIGNER: URGENCY: STATUS: COMPLETED Active problems - Computerized Problem List is the source for the followin. Exposure to potentially hazardous substance 2. Hypothyroidism 3. Diastolic heart failure 4. Chronic prostatitis 5. Long-term current use of anticoagulant 6. Gastroesophageal reflux disease 7. Low back pain 8. Paroxysmal atrial fibrillation (SNOMED CT 399994199) 9. Essential hypertension (SNOMED CT 12550709) 10. Hypercholesterolemia (SNOMED CT 03907311) 11. History of male erectile disorder (SNOMED CT 986573124) Active Outpatient Medications (including Supplies): Active Outpatient [...] is not contributory to today's visit. Optometry Operations Advisor Attending Provider Note: Date of Last Exam:06/18/2023 Location: [facility] Last Dr Darrion MD appt (04/14/2024 [...] surgery. Current Wear:TRANSPOSED exp 03/2026 (scanned to [facility]) OD:Pl -0.50 x 125 OS:Pl -0.50 x [...] Signed: 06/21/2024 10:49 JAKY SANCHEZ [facility]
--- OUTSIDE RECORDS SUMMARY | 2024-06-23 08:57 | XMS_ITS | Continuity of Care Document ---
Author Name [facility] Organization [facility] Care Team Providers Care Data Management Associate Name Role Phone [facility] Unavailable Unavailable Problems Combined list of problems from Department of Defense and Veterans Affairs facilities. It does not include entries that were removed or entered in error. Problem Status Onset Date Problem Type Date of Resolution Comments Source Chronic prostatitis Active Condition [facility] Diastolic heart failure Active Condition [facility] Essential hypertension (SNOMED CT 44511093) Active Condition [facility] Exposure to potentially hazardous substance Active Condition Aug 06, 2023 Entered By: RAVEN MADRID EN A Comment: Connect Snomed Code to ICD 10 Code refer to note dated 02/19/23 [facility] Gastroesophageal reflux disease Active Condition [facility] History of male erectile disorder (SNOMED CT 917004295) Active Condition [facility] Hypercholesterolemia (SNOMED CT 30689123) Active Condition [facility] Hypothyroidism Active Condition [facility] Long-term current use of anticoagulant Active Condition [facility] Low back pain Active Condition [facility] Paroxysmal atrial fibrillation (SNOMED CT 464395745) Active Condition Mar 19, 2024 Entered By: FIDENCIO EDWARDS Comment: s/p ablation x 2, now on [id number] Entered By: 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 [facility] Diagnosis: ICD-10-CM Z96.1 Presence of intraocular lens Active Diagnosis [facility] Diagnosis: ICD-10-CM Z46.1 Encounter for fitting and adjustment of hearing aid Active Diagnosis [facility] Diagnosis: ICD-10-CM E03.9 Hypothyroidism, unspecified Active Diagnosis [facility] Diagnosis: ICD-10-CM I48.0 Paroxysmal atrial fibrillation Active Diagnosis [facility] Diagnosis: ICD-10-CM Z46.0 Encounter for fit/adjst of spectacles and contact lenses Active Diagnosis [facility] Diagnosis: ICD-10-CM 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, bilateral Active Diagnosis [facility] Diagnosis: ICD-10-CM Z23 Encounter for immunization Active Diagnosis [facility] Diagnosis: ICD-10-CM Z00.01 Encounter for general adult medical exam w abnormal findings Active Diagnosis [facility] Medications Combined list of outpatient medications from Department of Defense and Veterans Affairs facilities.Medications provided include 1) outpatient medications from the last 15 months, and 2) patient-reported medications. Medication Details Route Status Patient Instructions Prescription Expires Prescription Number Last Dispense Date Ordering Provider Order Date Order Qty Source AMIODARONE HCL (PACERONE) 200MG TAB TAKE ONE TABLET BY MOUTH QD ORAL ACTIVE RAISA NIETO JAWED [address] [facility] AMLODIPINE BESYLATE 10MG TAB TAKE ONE TABLET BY MOUTH ONCE DAILY ORAL ACTIVE FURCOLO,T PARKER [address] [facility] APIXABAN 5MG TAB TAKE ONE TABLET BY MOUTH TWICE DAILY ORAL ACTIVE 08/11/2024 [id number] [facility] JAWED [address] [facility] APIXABAN 5MG TAB TAKE ONE TABLET BY MOUTH TWICE DAILY ORAL DISCONT INUED 08/02/2023 [id number] 4 [facility] AMBRAD JAWED [address] [facility] [facility] ATORVASTATI N CA 20MG TAB TAKE ONE TABLET BY MOUTH EVERY DAY FOR CHOLESTE ROL ORAL ACTIVE 08/11/2024 [id number] [facility] ATORVASTATI N CA 20MG TAB TAKE ONE TABLET BY MOUTH EVERY DAY FOR CHOLESTE ROL ORAL DISCONT INUED 08/02/2023 [id number] [facility] JAWED 2022 90 [facility] EMPAGLIFLOZ IN 10MG TAB TAKE ONE TABLET BY MOUTH ONCE DAILY FOR HEART ORAL DISCONT INUED BY PROVIDE R 08/18/2024 [id number] [facility] JAWED 2023 90 [facility] FINASTERIDE 5MG TAB TAKE ONE TABLET BY MOUTH ONCE DAILY FOR PROSTATE ORAL ACTIVE 08/11/2024 [id number] [facility] JAWED 2023 90 [facility] FUROSEMIDE 20MG TAB TAKE ONE TABLET BY MOUTH ORAL ACTIVE FURCOLO,T PARKER 2023 [facility] LEVOTHYROXI NE NA 75MCG TAB (SYNTHROID) TAKE ONE TABLET BY MOUTH EVERY MORNING 30 MINUTES BEFORE BREAKFAS T FOR THYROID TAKE ON AN EMPTY STOMACH WITH A FULL GLASS OF WATER ORAL ACTIVE 03/20/2025 [id number] FURCOLO,T PARKER 2023 90 [facility] LEVOTHYROXI NE NA 75MCG TAB (SYNTHROID) TAKE ONE TABLET BY MOUTH EVERY MORNING 30 MINUTES BEFORE BREAKFAS T FOR THYROID TAKE ON AN EMPTY STOMACH WITH A FULL GLASS OF WATER ORAL DISCONT INUED 04/07/2024 [id number] [facility] JAWED 2022 90 [facility] OMEPRAZOLE 20MG CAP,EC TAKE TWO CAPSULES BY MOUTH EVERY MORNING 30 MINUTES BEFORE BREAKFAS T FOR STOMACH ULCER ORAL ACTIVE 08/11/2024 [id number] [facility] JAWED 2023 180 [facility] SILDENAFIL CITRATE 100MG TAB TAKE ONE TABLET BY MOUTH EVERY DAY NEEDED TAKE 1 HOUR PRIOR TO SEXUAL ACTIVITY ORAL ACTIVE 03/20/2025 [id number] Tam EDWARDS PARKER 2023 18 [facility] SILDENAFIL CITRATE 100MG TAB TAKE ONE TABLET BY MOUTH EVERY DAY NEEDED TAKE 1 HOUR PRIOR TO SEXUAL ACTIVITY ORAL DISCONT INUED 02/20/2024 [id number] RAISA NIETO JAWED 2022 6 [facility] TAMSULOSIN HCL 0.4MG CAP TAKE ONE CAPSULE BY MOUTH ONCE DAILY ORAL ACTIVE 09/16/2024 [id number] Tam EDWARDS PARKER 2023 90 [facility] TAMSULOSIN HCL 0.4MG CAP TAKE ONE CAPSULE BY MOUTH ONCE DAILY ORAL DISCONT INUED 03/13/2024 [id number] RAISA NIETO JAWED 2022 30 [facility] Allergies, Adverse Reactions, Alerts Combined list of allergies from Department of Defense and Veterans Affairs facilities. It does not include entries that were removed or entered in error. Substance Category Reaction Severity Reaction type Status Date Reported Comments Source AUGMENTIN Propensity to adverse reactions to drug (finding) Dyspnea active 3 [facility] CHERRIES Propensity to adverse reactions to substance (finding) Anaphylaxis active 3 [facility] LISINOPRIL Propensity to adverse reactions to drug (finding) Angioedema, Angioedema of tongue active 1 [facility] Immunizations Combined list of available immunizations from the Department of Defense and Veterans Affairs facilities. Immunization Series Date Given Administered By Site Reaction Lot Number CVX Code Drug Chemist Water Purification Status Comments Source INFLUENZA, UNSPECIFIED FORMULATION 2023 88 complet ed [facility] COVID-19 (MODERNA), MRNA, LNP-S, PF, 50 MCG/0.5 ML (AGES 12+ YEARS) 1 2022 JACI ADEN LEFT DELTO ID [id number] 312 complet ed [facility] INFLUENZA, HIGH-DOSE, QUADRIVALENT 2022 [place] [facility] RIGHT DELTO ID [id number] A 197 complet ed [facility] COVID-19 (MODERNA), MRNA, LNP-S, BIVALENT BOOSTER, PF, 50 MCG/0.5 ML OR 25MCG/0.25 ML DOSE 1 2021 229 complet ed MOD; [id number]; 3 [facility] [...] YRS (HISTORICAL) 2012 88 complet ed Through [facility] - employee [facility] [place] Feb 17, 2024 10:24 AM Reporting Lab: [facility] [facility] [address] [address] Performing Lab: [facility] [address] [address] LIPID PANEL, NON FASTING TRIGLYCERID E [MASS/VOLUM E] IN SERUM OR PLASMA 91 mg/dL 0 - 150 02/23 Specimen Type: SERUM No comment entered. Ordering Provider: KAUSHIK EDWARDS Report Released Date/Time: Feb 17, 2024 10:24 AM Reporting Lab: [facility] [place] [facility] [address] [address] Performing Lab: [facility] [address] [address] [facility] [place] [facility] LIPID PANEL, NON FASTING CHOLESTEROL IN LDL [MASS/VOLUM E] IN SERUM OR PLASMA BY CALCULATION 74 mg/dL 0 - 129 02/23 Specimen Type: SERUM No comment entered. Ordering Provider: KAUSHIK EDWARDS Report Released Date/Time: Feb 17, 2024 10:24 AM Reporting Lab: [facility] [address] [address] Performing Lab: [facility] [address] [address] [facility] LIPID PANEL, NON FASTING CHOLESTEROL .TOTAL/CHOL ESTEROL IN HDL [MASS RATIO] IN SERUM OR PLASMA 2.3 02/23 Specimen Type: SERUM No comment entered. Ordering Provider: KAUSHIK EDWARDS Report Released Date/Time: Feb 17, 2024 10:24 AM Reporting Lab: [facility]ENTER[facility] [address] Performing Lab: [facility] [address] [facility] LIPID PANEL, NON FASTING CHOLESTEROL IN HDL [MASS/VOLUM E] IN SERUM OR PLASMA 73 mg/dL 40 - 60 02/23 H Specimen Type: SERUM No comment entered. Ordering Provider: KAUSHIK EDWARDS Report Released Date/Time: Feb 17, 2024 10:24 AM Reporting Lab: [facility] [address] Performing Lab: [facility] [address] [facility] BASIC METABOLIC PANEL (non-fast ing) UREA NITROGEN [MASS/VOLUM E] IN SERUM OR PLASMA 22 mg/dL 7 - 25 02/23 Specimen Type: SERUM No comment entered. Ordering Provider: KAUSHIK EDWARDS Report Released Date/Time: Feb 17, 2024 10:24 AM Reporting Lab: [facility] [address] Performing Lab: [facility] [address] [facility] BASIC METABOLIC PANEL (non-fast ing) GLUCOSE [MASS/VOLUM E] IN SERUM OR PLASMA 92 mg/dL 65 - 100 02/23 Specimen Type: SERUM No comment entered. Ordering Provider: KAUSHIK EDWARDS Report Released Date/Time: Feb 17, 2024 10:24 AM Reporting Lab: [address] [address] Performing Lab: [address] [address] [facility] BASIC METABOLIC PANEL (non-fast ing) SODIUM [MOLES/VOLU ME] IN SERUM OR PLASMA 139 mmol/L 135 - 145 02/23 Specimen Type: SERUM No comment entered. Ordering Provider: KAUSHIK EDWARDS Report Released Date/Time: Feb 17, 2024 10:24 AM Reporting Lab: [address] [address] Performing Lab: [address] [address] [facility] BASIC METABOLIC PANEL (non-fast ing) POTASSIUM [MOLES/VOLU ME] IN SERUM OR PLASMA 4.4 mmol/L 3.5 - 5.0 02/23 Specimen Type: SERUM No comment entered. Ordering Provider: KAUSHIK EDWARDS Report Released Date/Time: Feb 17, 2024 10:24 AM Reporting Lab: [address] [address] Performing Lab: [address] [address] [facility] BASIC METABOLIC PANEL (non-fast ing) CHLORIDE [MOLES/VOLU ME] IN SERUM OR PLASMA 105 mmol/L 100 - 110 02/23 Specimen Type: SERUM No comment entered. Ordering Provider: KAUSHIK EDWARDS Report Released Date/Time: Feb 17, 2024 10:24 AM Reporting Lab: [address] [address] Performing Lab: [facility] [address] [address] [facility] BASIC METABOLIC PANEL (non-fast ing) CARBON DIOXIDE, TOTAL [MOLES/VOLU ME] IN SERUM OR PLASMA 24 meq/L 20 - 30 02/23 Specimen Type: SERUM No comment entered. Ordering Provider: KAUSHIK EDWARDS Report Released Date/Time: Feb 17, 2024 10:24 AM Reporting Lab: [facility] [address] [address] Performing Lab: [facility] [address] [address] [facility] BASIC METABOLIC PANEL (non-fast ing) CREATININE [MASS/VOLUM E] IN SERUM OR PLASMA 1.04 mg/dL 0.50 - 1.40 02/23 Specimen Type: SERUM No comment entered. Ordering Provider: KAUSHIK EDWARDS Report Released Date/Time: Feb 17, 2024 10:24 AM Reporting Lab: [facility] [address] [address] Performing Lab: [facility] [address] [address] [facility] BASIC METABOLIC PANEL (non-fast ing) GLOMERULAR FILTRATION RATE/1.73 SQ M.PREDICTED [VOLUME RATE/AREA] IN SERUM, PLASMA OR BLOOD BY CREATININE- BASED FORMULA (CKD-EPI 2020) 70 mL/min 60 02/23 Specimen Type: SERUM No comment entered. Ordering Provider: KAUSHIK EDWARDS Report Released Date/Time: Feb 17, 2024 10:24 AM Reporting Lab: [facility] [address] [address] Performing Lab: [facility] [address] [address] [facility] THYROID T4 FREE(FT4) THYROXINE (T4) FREE [MASS/VOLUM E] IN SERUM OR PLASMA 1.12 ng/dL 0.6 - 1.6 03/06 /2024 Specimen Type: SERUM No comment entered. Ordering Provider: DIAMOND NIETO Report Released Date/Time: Jul 15, 2023 09:43 AM Reporting Lab: [facility] [place] [facility] [address] [address] Performing Lab: [facility] [place] [facility] [address] [address] [facility] BASIC METABOLIC PANEL (fasting) UREA NITROGEN [MASS/VOLUM E] IN SERUM OR PLASMA 23 mg/dL 7 - 25 07/29 Specimen Type: SERUM No comment entered. Ordering Provider: DIAMOND NIETO Report Released Date/Time: Jul 15, 2023 09:43 AM Reporting Lab: [facility] [place] [facility] [address] [address] Performing Lab: [facility] [place] [facility] [address] [address] [facility] [facility] BASIC METABOLIC PANEL (fasting) GLUCOSE [MASS/VOLUM E] IN SERUM OR PLASMA 90 mg/dL 65 - 100 07/29 Specimen Type: SERUM No comment entered. Ordering Provider: DIAMOND NIETO Report Released Date/Time: Jul 15, 2023 09:43 AM Reporting Lab: [facility] [address] [address] Performing Lab[facility] [place] [facility] [address] [address] [facility] BASIC METABOLIC PANEL (fasting) SODIUM [MOLES/VOLU ME] IN SERUM OR PLASMA 140 mmol/L 135 - 145 07/29 Specimen Type: SERUM No comment entered. Ordering Provider: DIAMOND NIETO Report Released Date/Time: Jul 15, 2023 09:43 AM Reporting Lab: [facility] [place] [facility] [address] [address] Performing Lab: [facility] [place] [facility] [address] [address] [facility] BASIC METABOLIC PANEL (fasting) POTASSIUM [MOLES/VOLU ME] IN SERUM OR PLASMA 4.4 mmol/L 3.5 - 5.0 07/29 Specimen Type: SERUM No comment entered. Ordering Provider: DIAMOND NIETO Report Released Date/Time: Jul 15, 2023 09:43 AM Reporting Lab: [facility] [place] [address] [address] Performing Lab: [facility] [place] [facility] [address] [address] [facility] BASIC METABOLIC PANEL (fasting) CHLORIDE [MOLES/VOLU ME] IN SERUM OR PLASMA 105 mmol/L 100 - 110 07/29 Specimen Type: SERUM No comment entered. Ordering Provider: DIAMOND NIETO Report Released Date/Time: Jul 15, 2023 09:43 AM Reporting Lab: [facility] [place] [address] [address] Performing Lab: [facility] [place] [address] [address] [facility] BASIC METABOLIC PANEL (fasting) CARBON DIOXIDE, TOTAL [MOLES/VOLU ME] IN SERUM OR PLASMA 25 meq/L 20 - 30 07/29 Specimen Type: SERUM No comment entered. Ordering Provider: DIAMOND NIETO Report Released Date/Time: Jul 15, 2023 09:43 AM Reporting Lab: [facility] [place] [address] [address] Performing Lab: [facility] [place] [address] [address] [facility] BASIC METABOLIC PANEL (fasting) CREATININE [MASS/VOLUM E] IN SERUM OR PLASMA 1.07 mg/dL 0.50 - 1.40 07/29 Specimen Type: SERUM No comment entered. Ordering Provider: DIAMOND NIETO Report Released Date/Time: Jul 15, 2023 09:43 AM Reporting Lab: [facility] [address] [address] Performing Lab: [facility] [place] [facility] [address] [address] [facility] BASIC METABOLIC PANEL (fasting) GLOMERULAR FILTRATION RATE/1.73 SQ M.PREDICTED [VOLUME RATE/AREA] IN SERUM, PLASMA OR BLOOD BY CREATININE- BASED FORMULA (CKD-EPI 2020) 68 mL/min 60 07/29 Specimen Type: SERUM No comment entered. Ordering Provider: DIAMOND NIETO Report Released Date/Time: Jul 15, 2023 09:43 AM Reporting Lab: [facility] [place] [facility] [address] [address] Performing Lab: [facility] [place] [facility] [address] [address] [facility] LIPID PANEL FASTING CHOLESTEROL [MASS/VOLUM E] IN SERUM OR PLASMA 164 mg/dL 07/29 Specimen Type: SERUM No comment entered. Ordering Provider: DIAMOND NIETO Report Released Date/Time: Jul 15, 2023 09:43 AM Reporting Lab: [facility] [place] [facility] [address] [address] Performing Lab: [facility] [place] [facility] [address] [address] [facility] [place] [facility] LIPID PANEL FASTING TRIGLYCERID E [MASS/VOLUM E] IN SERUM OR PLASMA 67 mg/dL 0 - 150 07/29 Specimen Type: SERUM No comment entered. Ordering Provider: DIAMOND NIETO Report Released Date/Time: Jul 15, 2023 09:43 AM Reporting Lab: [facility] [place] [facility] [address] [address] Performing Lab: [facility] [place] [facility] [address] [address] [facility] [place] [facility] LIPID PANEL FASTING CHOLESTEROL IN LDL [MASS/VOLUM E] IN SERUM OR PLASMA BY CALCULATION 78 mg/dL 0 - 129 07/29 Specimen Type: SERUM No comment entered. Ordering Provider: DIAMOND NIETO Report Released Date/Time: Jul 15, 2023 09:43 AM Reporting Lab: [facility] [place] [facility] [address] [address] Performing Lab: [facility] [place] [facility] [address] [address] [facility] LIPID PANEL FASTING CHOLESTEROL .TOTAL/CHOL ESTEROL IN HDL [MASS RATIO] IN SERUM OR PLASMA 2.2 07/29 Specimen Type: SERUM No comment entered. Ordering Provider: DIAMOND NIETO Report Released Date/Time: Jul 15, 2023 09:43 AM Reporting Lab: [facility] [place] [facility] [address] [address] Performing Lab: [facility] [place] [facility] [address] [address] [facility] [facility] LIPID PANEL FASTING CHOLESTEROL IN HDL [MASS/VOLUM E] IN SERUM OR PLASMA 73 mg/dL 40 - 60 07/29 H Specimen Type: SERUM No comment entered. Ordering Provider: DIAMOND NIETO Report Released Date/Time: Jul 15, 2023 09:43 AM Reporting Lab: [facility] [place] [facility] [address] [address] Performing Lab: [facility] [place] [facility] [address] [address] [facility] LIVER FUNCTION PROTEIN [MASS/VOLUM E] IN SERUM OR PLASMA 6.5 g/dL 6.0 - 8.3 07/29 Specimen Type: SERUM No comment entered. Ordering Provider: DIAMOND NIETO Report Released Date/Time: Jul 15, 2023 09:43 AM Reporting Lab: [facility] [place] [facility] [address] [address] Performing Lab: [facility] [place] [facility] [address] [address] [facility] LIVER FUNCTION ALBUMIN [MASS/VOLUM E] IN SERUM OR PLASMA 3.7 g/dL 3.5 - 5.0 07/29 Specimen Type: SERUM No comment entered. Ordering Provider: DIAMOND NIETO Report Released Date/Time: Jul 15, 2023 09:43 AM Reporting Lab: [facility] [place] [facility] [address] [address] Performing Lab: [facility] [place] [facility] [address] [address] [facility] LIVER FUNCTION ALKALINE PHOSPHATASE [ENZYMATIC ACTIVITY/VO LUME] IN SERUM OR PLASMA 66 U/L 40 - 150 07/29 Specimen Type: SERUM No comment entered. Ordering Provider: DIAMOND NIETO Report Released Date/Time: Jul 15, 2023 09:43 AM Reporting Lab: [facility] [place] [address] [address] Performing Lab: [facility] [place] [facility] [address] [phone] [facility] LIVER FUNCTION ASPARTATE AMINOTRANSF ERASE [ENZYMATIC ACTIVITY/VO LUME] IN SERUM OR PLASMA 21 U/L 5 - 34 07/29 Specimen Type: SERUM No comment entered. Ordering Provider: DIAMOND NIETO Report Released Date/Time: Jul 15, 2023 09:43 AM Reporting Lab: [facility] [place] [address] [phone] Performing Lab: [facility] [place] [facility] [address] [phone] [facility] [facility] LIVER FUNCTION ALANINE AMINOTRANSF ERASE [ENZYMATIC ACTIVITY/VO LUME] IN SERUM OR PLASMA 14 U/L 07/29 Specimen Type: SERUM No comment entered. Ordering Provider: DIAMOND NIETO Report Released Date/Time: Jul 15, 2023 09:43 AM Reporting Lab: [facility] [place] [facility] [address] [phone] Performing Lab: [facility] [place] [facility] [address] [address] [facility] [place] [facility] LIVER FUNCTION BILIRUBIN.T OTAL [MASS/VOLUM E] IN SERUM OR PLASMA 0.6 mg/dL 0.2 - 1.2 07/29 Specimen Type: SERUM No comment entered. Ordering Provider: DIAMOND NIETO Report Released Date/Time: Jul 15, 2023 09:43 AM Reporting Lab: [facility] [address] [place] [address] Performing Lab: [facility] [address] [facility] [place] [facility] TSH THYROTROPIN [UNITS/VOLU ME] IN SERUM OR PLASMA 1.90 u[IU]/ mL 0.35 - 5.00 07/29 Specimen Type: SERUM No comment entered. Ordering Provider: DIAMOND NIETO Report Released Date/Time: Jul 15, 2023 09:43 AM Reporting Lab: [facility] [address] [place] [address] Performing Lab: [facility] [address] [facility] [place] [facility] CBC AND DIFF (AUTO) LEUKOCYTES [#/VOLUME] IN BLOOD BY AUTOMATED COUNT 6.98 10*3/u L 4.50 - 11.00 07/29 Specimen Type: BLOOD No comment entered. Ordering Provider: DIAMOND NIETO Report Released Date/Time: Jul 15, 2023 09:43 AM Reporting Lab: [facility] [address] [facility] [address] Performing Lab: [facility] [address] [place] [address] [facility] CBC AND DIFF (AUTO) ERYTHROCYTE S [#/VOLUME] IN BLOOD BY AUTOMATED COUNT 4.45 10*6/u L 4.23 - 5.66 07/29 Specimen Type: BLOOD No comment entered. Ordering Provider: DIAMOND NIETO Report Released Date/Time: Jul 15, 2023 09:43 AM Reporting Lab: [facility] [address] [facility] [address] Performing Lab: [facility] [place] [facility] [address] [facility] [address] [facility] CBC AND DIFF (AUTO) HEMOGLOBIN [MASS/VOLUM E] IN BLOOD 13.9 g/dL 12.8 - 17 07/29 Specimen Type: BLOOD No comment entered. Ordering Provider: DIAMOND NIETO Report Released Date/Time: Jul 15, 2023 09:43 AM Reporting Lab: [facility] [place] [facility] [address] [facility] [address] Performing Lab: [facility] [place] [facility] [address] [facility] [address] [facility] [place] CBC AND DIFF (AUTO) HEMATOCRIT [VOLUME FRACTION] OF BLOOD BY AUTOMATED COUNT 41.7 39.2 - 50.4 07/29 Specimen Type: BLOOD No comment entered. Ordering Provider: DIAMOND NIETO Report Released Date/Time: Jul 15, 2023 09:43 AM Reporting Lab: [facility] [place] [facility] [address] [facility] [address] Performing Lab: [facility] [place] [facility] [address] [facility] [address] [facility] [place] CBC AND DIFF (AUTO) MCV [ENTITIC VOLUME] BY AUTOMATED COUNT 93.7 fL 82 - 99 07/29 Specimen Type: BLOOD No comment entered. Ordering Provider: DIAMOND NIETO Report Released Date/Time: Jul 15, 2023 09:43 AM Reporting Lab: [facility] [place] [facility] [address] [facility] [address] Performing Lab: [facility] [place] [facility] [address] [facility] [address] [facility] CBC AND DIFF (AUTO) MCHC [MASS/VOLUM E] BY AUTOMATED COUNT 33.3 g/dL 30.8 - 35.1 07/29 Specimen Type: BLOOD No comment entered. Ordering Provider: DIAMOND NIETO Report Released Date/Time: Jul 15, 2023 09:43 AM Reporting Lab: [facility] [address] [facility] [address] Performing Lab: [facility] [address] [facility] [address] [facility] CBC AND DIFF (AUTO) PLATELETS [#/VOLUME] IN BLOOD BY AUTOMATED COUNT 244 10*3/u L 140 - 360 07/29 Specimen Type: BLOOD No comment entered. Ordering Provider: DIAMOND NIETO Report Released Date/Time: Jul 15, 2023 09:43 AM Reporting Lab: [facility] [address] [facility] [address] Performing Lab: [facility] [address] [facility] [address] [facility] CBC AND DIFF (AUTO) ERYTHROCYTE DISTRIBUTIO N WIDTH [RATIO] BY AUTOMATED COUNT 15.9 12.0 - 16.0 07/29 Specimen Type: BLOOD No comment entered. Ordering Provider: DIAMOND NIETO Report Released Date/Time: Jul 15, 2023 09:43 AM Reporting Lab: [facility] [address] [facility] [address] Performing Lab: [facility] [address] [facility] [address] [facility] CBC AND DIFF (AUTO) MONOCYTES [#/VOLUME] IN BLOOD BY AUTOMATED COUNT 0.63 10*3/u L 0.30 - 1.10 07/29 Specimen Type: BLOOD No comment entered. Ordering Provider: DIAMOND NIETO Report Released Date/Time: Jul 15, 2023 09:43 AM Reporting Lab: [facility] [address] [facility] [address] Performing Lab: [facility] [address] [facility] [address] [facility] CBC AND DIFF (AUTO) MCH [ENTITIC MASS] BY AUTOMATED COUNT 31.2 pg 26.2 - 32.6 07/29 Specimen Type: BLOOD No comment entered. Ordering Provider: DIAMOND NIETO Report Released Date/Time: Jul 15, 2023 09:43 AM Reporting Lab: [facility] [address] [facility] [address] Performing Lab: [facility] [address] [facility] [address] [facility] CBC AND DIFF (AUTO) NEUTROPHILS /100 LEUKOCYTES IN BLOOD BY AUTOMATED COUNT 65.6 43.7 - 75.8 07/29 Specimen Type: BLOOD No comment entered. Ordering Provider: DIAMOND NIETO Report Released Date/Time: Jul 15, 2023 09:43 AM Reporting Lab: [facility] [address] [facility] [address] Performing Lab: [facility] [address] [facility] [address] [facility] CBC AND DIFF (AUTO) LYMPHOCYTES /100 LEUKOCYTES IN BLOOD BY AUTOMATED COUNT 21.8 14.0 - 42.3 07/29 Specimen Type: BLOOD No comment entered. Ordering Provider: DIAMOND NIETO Report Released Date/Time: Jul 15, 2023 09:43 AM Reporting Lab: [facility] [address] [facility] [address] Performing Lab: [facility] [address] [facility] [address] [facility] CBC AND DIFF (AUTO) MONOCYTES/1 00 LEUKOCYTES IN BLOOD BY AUTOMATED COUNT 9.0 5.1 - 13.7 07/29 Specimen Type: BLOOD No comment entered. Ordering Provider: DIAMOND NIETO Report Released Date/Time: Jul 15, 2023 09:43 AM Reporting Lab: [facility] [address] [facility] [address] Performing Lab: [facility] [address] [facility] [address] [facility] CBC AND DIFF (AUTO) EOSINOPHILS /100 LEUKOCYTES IN BLOOD BY AUTOMATED COUNT 2.7 0.4 - 6.8 07/29 Specimen Type: BLOOD No comment entered. Ordering Provider: DIAMOND NIETO Report Released Date/Time: Jul 15, 2023 09:43 AM Reporting Lab: [facility] [address] [facility] [address] Performing Lab: [facility] [place] [facility] [address] [facility] [address] [facility] [place] [facility] CBC AND DIFF (AUTO) BASOPHILS/1 00 LEUKOCYTES IN BLOOD BY AUTOMATED COUNT 0.6 0.1 - 2.0 07/29 Specimen Type: BLOOD No comment entered. Ordering Provider: DIAMOND NIETO Report Released Date/Time: Jul 15, 2023 09:43 AM Reporting Lab: [facility] [place] [facility] [address] [facility] [address] Performing Lab: [facility] [place] [facility] [address] [facility] [address] [facility] [place] [facility] CBC AND DIFF (AUTO) NEUTROPHILS [#/VOLUME] IN BLOOD BY AUTOMATED COUNT 4.58 10*3/u L 2.20 - 7.60 07/29 Specimen Type: BLOOD No comment entered. Ordering Provider: DIAMOND NIETO Report Released Date/Time: Jul 15, 2023 09:43 AM Reporting Lab: [facility] [address] [facility] [address] Performing Lab: [facility] [place] [facility] [address] [facility] [address] [facility] [place] [facility] CBC AND DIFF (AUTO) LYMPHOCYTES [#/VOLUME] IN BLOOD BY AUTOMATED COUNT 1.52 10*3/u L 1.00 - 3.20 07/29 Specimen Type: BLOOD No comment entered. Ordering Provider: DIAMOND NIETO Report Released Date/Time: Jul 15, 2023 09:43 AM Reporting Lab: [facility] [address] [facility] [address] Performing Lab: [facility] [address] [facility] [address] [facility] CBC AND DIFF (AUTO) EOSINOPHILS [#/VOLUME] IN BLOOD BY AUTOMATED COUNT 0.19 10*3/u L 0.03 - 0.44 07/29 Specimen Type: BLOOD No comment entered. Ordering Provider: DIAMOND NIETO Report Released Date/Time: Jul 15, 2023 09:43 AM Reporting Lab: [facility] [address] [facility] [address] Performing Lab: [facility] [address] [facility] [address] [facility] CBC AND DIFF (AUTO) BASOPHILS [#/VOLUME] IN BLOOD BY AUTOMATED COUNT 0.04 10*3/u L 0.01 - 0.13 07/29 Specimen Type: BLOOD No comment entered. Ordering Provider: DIAMOND NIETO Report Released Date/Time: Jul 15, 2023 09:43 AM Reporting Lab: [facility] [address] [facility] [address] Performing Lab: [facility] [address] [facility] [address] [facility] CBC AND DIFF (AUTO) IMMATURE GRANULOCYTE S/100 LEUKOCYTES IN BLOOD BY AUTOMATED COUNT 0.3 0.0 - 0.7 07/29 Specimen Type: BLOOD No comment entered. Ordering Provider: DIAMOND NIETO Report Released Date/Time: Jul 15, 2023 09:43 AM Reporting Lab: [facility] [address] [facility] [address] Performing Lab: [facility] [address] [facility] [address] [facility] CBC AND DIFF (AUTO) IMMATURE GRANULOCYTE S [#/VOLUME] IN BLOOD 0.02 10*3/u L 0.00 - 0.06 07/29 Specimen Type: BLOOD No comment entered. Ordering Provider: DIAMOND NIETO Report Released Date/Time: Jul 15, 2023 09:43 AM Reporting Lab: [facility] [place] [address] [address] Performing Lab: [facility] [place] [facility] [address] [facility] [address] [facility] TSH THYROTROPIN [UNITS/VOLU ME] IN SERUM OR PLASMA 41.39 u[IU]/ mL 0.35 - 5.00 02/10 H Specimen Type: SERUM No comment entered. Ordering Provider: DIAMOND NIETO Report Released Date/Time: Aug 01, 2022 10:55 AM Reporting Lab: [facility] [place] [address] [address] Performing Lab: [facility] [place] [address] [address] [facility] BASIC METABOLIC PANEL (fasting) UREA NITROGEN [MASS/VOLUM E] IN SERUM OR PLASMA 20 mg/dL 7 - 25 02/10 Specimen Type: SERUM No comment entered. Ordering Provider: DIAMOND NIETO Report Released Date/Time: Aug 01, 2022 10:55 AM Reporting Lab: [facility] [place] [address] [address] Performing Lab: [facility] [place] [address] [address] [facility] BASIC METABOLIC PANEL (fasting) GLUCOSE [MASS/VOLUM E] IN SERUM OR PLASMA 101 mg/dL 65 - 100 02/10 H Specimen Type: SERUM No comment entered. Ordering Provider: DIAMOND NIETO Report Released Date/Time: Aug 01, 2022 10:55 AM Reporting Lab: [facility] [place] [address] [address] Performing Lab: [facility] [address] [facility] [address] [facility] [place] [facility] BASIC METABOLIC PANEL (fasting) SODIUM [MOLES/VOLU ME] IN SERUM OR PLASMA 141 mmol/L 135 - 145 02/10 Specimen Type: SERUM No comment entered. Ordering Provider: DIAMOND NIETO Report Released Date/Time: Aug 01, 2022 10:55 AM Reporting Lab: [facility] [address] [facility] [address] Performing Lab: [facility] [place] [facility] [address] [facility] [address] [facility] [place] [facility] BASIC METABOLIC PANEL (fasting) POTASSIUM [MOLES/VOLU ME] IN SERUM OR PLASMA 4.6 mmol/L 3.5 - 5.0 02/10 Specimen Type: SERUM No comment entered. Ordering Provider: DIAMOND NIETO Report Released Date/Time: Aug 01, 2022 10:55 AM Reporting Lab: [facility] [place] [facility] [address] [facility] [address] Performing Lab: [facility] [place] [facility] [address] [facility] [address] [facility] [place] [facility] BASIC METABOLIC PANEL (fasting) CHLORIDE [MOLES/VOLU ME] IN SERUM OR PLASMA 105 mmol/L 100 - 110 02/10 Specimen Type: SERUM No comment entered. Ordering Provider: DIAMOND NIETO Report Released Date/Time: Aug 01, 2022 10:55 AM Reporting Lab: [facility] [place] [facility] [address] [facility] [address] Performing Lab: [facility] [address] [facility] [address] [facility] [place] [facility] BASIC METABOLIC PANEL (fasting) CARBON DIOXIDE, TOTAL [MOLES/VOLU ME] IN SERUM OR PLASMA 27 meq/L 20 - 30 02/10 Specimen Type: SERUM No comment entered. Ordering Provider: DIAMOND NIETO Report Released Date/Time: Aug 01, 2022 10:55 AM Reporting Lab: [facility] [place] [facility] [address] [facility] [address] Performing Lab: [facility] [place] [facility] [address] [facility] [address] [facility] [place] [facility] BASIC METABOLIC PANEL (fasting) CREATININE [MASS/VOLUM E] IN SERUM OR PLASMA 1.24 mg/dL 0.50 - 1.40 02/10 Specimen Type: SERUM No comment entered. Ordering Provider: DIAMOND NIETO Report Released Date/Time: Aug 01, 2022 10:55 AM Reporting Lab: [facility] [place] [facility] [address] [facility] [address] Performing Lab: [facility] [place] [facility] [address] [facility] [address] [facility] [place] [facility] BASIC METABOLIC PANEL (fasting) GLOMERULAR FILTRATION RATE/1.73 SQ M.PREDICTED [VOLUME RATE/AREA] IN SERUM, PLASMA OR BLOOD BY CREATININE- BASED FORMULA (CKD-EPI 2020) 57 mL/min 60 02/10 L Specimen Type: SERUM No comment entered. Ordering Provider: DIAMOND NIETO Report Released Date/Time: Aug 01, 2022 10:55 AM Reporting Lab: [facility] [place] [facility] [address] [facility] [address] Performing Lab: [facility] [place] [facility] [address] [facility] [address] [facility] [place] [facility] Vital Signs Combined list of inpatient and outpatient Vital Signs from Department of Defense and Veterans Affairs, ranging from 12 months to all on record, depending upon the facility. Vital Sign Value Date Comments Source SYSTOLIC BLOOD PRESSURE 168 03/19/20 24 09:08:18 [facility] [place] [facility] DIASTOLIC BLOOD PRESSURE 78 024 09:08:18 [facility] [place] [facility] PULSE OXIMETRY 96 03/19/2024 09:08:18 [facility] [place] [facility] WEIGHT 158 03/19/2024 09:08:18 [facility] [id number] 02/04 [facility] En[facility] [id number] 02/06 [facility] En[facility] [id number] 02/19 [facility] OFFICE O/P EST LOW 20-29 MIN [id number] Diagnos is: ICD-10- CM Z00.01 Encount er for general adult medical exam w abnorma l finding s
SAULOBRADRAISAEvangelina MMED JAWED 02/19 [facility] HEARING AID REPAIR/MOD IFYING [id number] Diagnos is: ICD-10- CM Z46.1 Encount er for fitting and adjustm ent of hearing aid<br/ > URBANO ORTIZ 02/20 [facility] En[facility] [id number] 02/20 [facility] En[facility] [id number] 03/21 [facility] En[facility] [id number] 03/24 [facility] En[facility] [id number] Evangelina JAEGER 04/07 [facility] OFF/OP EST MAY X REQ PHY/QHP [id number] Diagnos is: ICD-10- CM Z23 Encount er for immuniz ation<b r/> DIANA ADEN P 04/11 [facility] En[facility] [id number] 06/09 [facility] COMPRE OPH EXAM EST PT 1/> [id number] Diagnos is: ICD-10- CM H25.13 Age-rel ated nuclear catarac t, bilater al
MERHAR,CARMELO H B 06/18 [facility] FIT SPECTACLES MONOFOCAL [id number] Diagnos is: ICD-10- CM Z46.0 Encount er for fit/adj st of spectac les and contact lenses< br/> MERHAR,CARMELO H B 06/18 [facility] En[facility] [id number] 06/25 [facility] Encounter [id number] 07/15 [facility] Encounter [id number] 07/28 [facility] Encounter [id number] 08/03 [facility] Encounter [id number] 08/05 [facility] Encounter [id number] BECKA TALBERT 08/10 [facility] [place] OFFICE O/P EST MOD 30 MIN [id number] Diagnos is: ICD-10- CM I48.0 Paroxys mal atrial fibrill ation<b r/> TENISHA NIETO MMED JAWED 08/17 [facility] [place] Outpatient Encounter [id number] Penelope HENDERSON E 09/15 [facility] [place] Outpatient Encounter [id number] Penelope HENDERSON E 02/16 [facility] [place] Outpatient Encounter [id number] 02/25 [facility] [place] Outpatient Encounter [id number] 03/05 [facility] [place] OFFICE O/P EST MOD 30 MIN [id number] Diagnos is: ICD-10- CM E03.9 Hypothy roidism , unspeci fied
FURCOLO,TI NA 03/19 [facility] HEARING AID REPAIR/MOD IFYING [id number] Diagnos is: ICD-10- CM Z46.1 Encount er for fitting and adjustm ent of hearing aid<br/ > SENIOR,FRANCY OLE L 04/06 [facility] [place] [id number] Diagnos is: ICD-10- CM Z96.1 Presenc e of intraoc ular lens
MERHAR,CARMELO Puma B 06/21 [facility] [place] [facility] Social History Combined list of available smoking, tobacco, and other social history from Department of Defense and Veterans Affairs facilities. Social History Type Response Date Comment Sourc e Tobacco smoking status NHIS VA-TOBACCO NEVER USED 08/18/2023 [facility] [place] [facility] History of tobacco use VA-TOBACCO NEVER USED 08/01/2022 [facility] [place] [facility] History of tobacco use MO-TOBACCO NEVER USED 07/03/2021 [facility] [place] [place] [facility] History of tobacco use MO-TOBACCO NEVER USED 06/16/2020 [facility] [place] [facility] History of tobacco use MO-TOBACCO NEVER USED 12/07/2018 [facility] [place] [place] [facility] History of tobacco use MO-TOBACCO NEVER USED 12/15/2017 [facility] [place] [facility] History of tobacco use LIFETIME NON-TOBACCO USER 06/02/2017 [facility] [place] [facility] History of tobacco use LIFETIME NON-TOBACCO USER 06/04/2016 [facility] [place] [facility] History of tobacco use LIFETIME NON-TOBACCO USER 05/09/2015 . [facility] [place] [facility] History of tobacco use LIFETIME NON-TOBACCO USER 10/27/2012 [facility] [place] [facility] Plan of Care List of future care activities from Department of Veterans Affairs facilities. Additional future care activities may be listed in the Assessment and Plan section. Date/Time Care Activity Care Activity Detail Facili ty 09/14/2024 AMBULATORY - MEDICINE AMBULATORY - MEDICI NE [facility] [place] [facility] 09/30/2024 AMBULATORY - REHAB MEDICINE AMBULATORY - REHAB MEDICINE [facility] [place] [facility]
== END 2024-06-23 09:07 | disposition home or self-care (01) ==
PROVIDERS: PCP Internal Medicine; Visit Provider Internal Medicine Cardiovascular Disease
DX: I50.32 Chronic diastolic (congestive) heart failure (principal); I49.5 Sick sinus syndrome; I48.0 Paroxysmal atrial fibrillation; I10 Essential (primary) hypertension; I44.0 Atrioventricular block, first degree
CPT/HCPCS: 93010; 99215; G2211

== ENCOUNTER → 2024-06-23 08:36 | Outpatient (BNVA) | payer MEDICARE, SELFPAY | PROVIDERS: PCP Internal Medicine; Visit Provider Internal Medicine Cardiovascular Disease | DX: I11.0 Hypertensive heart disease with heart failure (principal); I50.32 Chronic diastolic (congestive) heart failure; I49.5 Sick sinus syndrome; I48.0 Paroxysmal atrial fibrillation | CPT/HCPCS: 93005; 99212 ==

== ENCOUNTER 2024-07-30 09:29 | Outpatient (REF) | payer MEDICARE, SELFPAY ==
--- NOTE | ~2024-07-30 | XR_ITS ---
EXAMINATION: XR CHEST 2 VIEWS HISTORY: R06.00 - Dyspnea, unspecified COMPARISON: Comparison is made with the prior examination dated 01/27/2024. FINDINGS: PA and lateral views of the chest are submitted. The lungs are expanded and clear. There is no pleural effusion, pneumothorax, or pulmonary vascular congestion. The heart is normal in size. The aorta is tortuous and calcified. There is degenerative disc disease of the spine. XR/XR chest 2V IMPRESSION: No acute cardiopulmonary abnormality. Electronically signed by: Lalo John MD 08/02/2024 12:10 PM EDT
[2024-07-30 09:47] LABS: MANUAL DIFF FLAG NO
--- OUTSIDE RECORDS SUMMARY | 2024-07-30 10:19 | XMS_ITS | Continuity of Care Document ---
Author Name [facility] Organization [facility] Care Team Providers Care Radio Intelligence Operator Name Role Phone [facility] Unavailable Unavailable Problems Combined list of problems from Department of Defense and Veterans Affairs facilities. It does not include entries that were removed or entered in error. Problem Status Onset Date Problem Type Date of Resolution Comments Source Chronic prostatitis Active Condition [facility] Diastolic heart failure Active Condition [facility] Essential hypertension (SNOMED CT 01428851) Active Condition [facility] Exposure to potentially hazardous substance Active Condition Aug 06, 2023 Entered By: RAVEN MADRID EN A Comment: Connect Snomed Code to ICD 10 Code refer to note dated 02/19/23 [facility] Gastroesophageal reflux disease Active Condition [facility] History of male erectile disorder (SNOMED CT 181388225) Active Condition [facility] Hypercholesterolemia (SNOMED CT 88946887) Active Condition [facility] Hypothyroidism Active Condition [facility] Long-term current use of anticoagulant Active Condition [facility] Low back pain Active Condition [facility] Paroxysmal atrial fibrillation (SNOMED CT 289806316) Active Condition Mar 19, 2024 Entered By: FIDENCIO EDWARDS Comment: s/p ablation x 2, now on [id number] Entered By: 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: 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-- Ricky Macias M.D [facility] Diagnosis: ICD-10-CM Z46.0 Encounter for fit/adjst of spectacles and contact lenses Active Diagnosis [facility] Diagnosis: ICD-10-CM Z96.1 Presence of intraocular lens Active Diagnosis [facility] Diagnosis: ICD-10-CM Z46.1 Encounter for fitting and adjustment of hearing aid Active Diagnosis [facility] Diagnosis: ICD-10-CM E03.9 Hypothyroidism, unspecified Active Diagnosis [facility] Diagnosis: ICD-10-CM I48.0 Paroxysmal atrial fibrillation Active Diagnosis [facility] Diagnosis: ICD-10-CM 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, bilateral Active Diagnosis [facility] Diagnosis: ICD-10-CM Z23 Encounter for immunization Active Diagnosis [facility] Diagnosis: ICD-10-CM Z00.01 Encounter for general adult medical exam w abnormal findings Active Diagnosis [facility] Medications Combined list of outpatient medications from [...] QD ORAL ACTIVE RAISA NIETO JAWED 2019 [facility] AMLODIPINE BESYLATE 10MG TAB TAKE ONE TABLET BY MOUTH ONCE DAILY ORAL ACTIVE FURCOLO,T PARKER 2023 [facility] APIXABAN 5MG TAB TAKE ONE TABLET BY MOUTH TWICE DAILY ORAL ACTIVE 08/11/2024 [id number] 5 [facility]23 180 [facility] APIXABAN 5MG TAB TAKE ONE TABLET BY MOUTH TWICE DAILY ORAL DISCONT INUED 08/02/2023 [id number] 4 RAISA NIETO AMBRAD JAWED 2022 180 [facility] ATORVASTATI N CA 20MG TAB TAKE ONE TABLET BY MOUTH EVERY DAY FOR CHOLESTE ROL ORAL ACTIVE 08/11/2024 [id number] RAISA NIETO JAWED 2023 90 [facility] ATORVASTATI N CA 20MG TAB TAKE ONE TABLET BY MOUTH EVERY DAY FOR CHOLESTE ROL ORAL DISCONT INUED 08/02/2023 [id number] [facility] JAWED 2022 90 [facility] EMPAGLIFLOZ IN 10MG TAB TAKE ONE TABLET BY MOUTH ONCE DAILY FOR HEART ORAL DISCONT INUED BY PROVIDE R 08/18/2024 [id number] [facility] JAWED 2023 90 [facility] FINASTERIDE 5MG TAB TAKE ONE TABLET BY MOUTH ONCE DAILY FOR PROSTATE ORAL ACTIVE 08/11/2024 [id number] 5 [facility] JAWED 2023 90 [facility] FUROSEMIDE 20MG TAB TAKE ONE TABLET BY MOUTH ORAL ACTIVE FURCOLO,T PARKER 2023 [facility] LEVOTHYROXI NE NA 75MCG TAB TAKE ONE TABLET BY MOUTH EVERY MORNING 30 MINUTES BEFORE BREAKFAS T FOR THYROID TAKE ON AN EMPTY STOMACH WITH A FULL GLASS OF WATER ORAL ACTIVE 03/20/2025 [id number] 5 FURCOLO,T PARKER 2023 90 [facility] LEVOTHYROXI NE NA 75MCG TAB (SYNTHROID) TAKE ONE TABLET BY MOUTH EVERY MORNING 30 MINUTES BEFORE BREAKFAS T FOR THYROID TAKE ON AN EMPTY STOMACH WITH A FULL GLASS OF WATER ORAL DISCONT INUED 04/07/2024 [id number] [facility] JAWED 2022 90 [facility] OMEPRAZOLE 20MG CAP,EC TAKE TWO CAPSULES BY MOUTH EVERY MORNING 30 MINUTES BEFORE BREAKFAS T FOR STOMACH ULCER ORAL ACTIVE 08/11/2024 [id number] 4 [facility] JAWED 2023 180 [facility] SILDENAFIL CITRATE 100MG TAB TAKE ONE TABLET BY MOUTH EVERY DAY NEEDED TAKE 1 HOUR PRIOR TO SEXUAL ACTIVITY ORAL ACTIVE 03/20/2025 [id number] GRACET PARKER 2023 18 [facility] SILDENAFIL CITRATE 100MG TAB TAKE ONE TABLET BY MOUTH EVERY DAY NEEDED TAKE 1 HOUR PRIOR TO SEXUAL ACTIVITY ORAL DISCONT INUED 02/20/2024 [id number] 4 RAISA NIETO JAWED 2022 6 [facility] TAMSULOSIN HCL 0.4MG CAP TAKE ONE CAPSULE BY MOUTH ONCE DAILY ORAL ACTIVE 09/16/2024 [id number] 5 Tam EDWARDS PARKER 2023 90 [facility] TAMSULOSIN HCL 0.4MG CAP TAKE ONE CAPSULE BY MOUTH ONCE DAILY ORAL DISCONT INUED 03/13/2024 [id number] RAISA NIETO JAWED 2022 30 [facility] Allergies, Adverse Reactions, Alerts Combined list of allergies from Department of Defense and Veterans Affairs facilities. It does not include entries that were removed or entered in error. Substance Category Reaction Severity Reaction type Status Date Reported Comments Source AUGMENTIN Propensity to adverse reactions to drug (finding) Dyspnea active 3 [facility] CHERRIES Propensity to adverse reactions to substance (finding) Anaphylaxis active 3 [facility] LISINOPRIL Propensity to adverse reactions to drug (finding) Angioedema, Angioedema of tongue active 1 [facility] Immunizations Combined list of available immunizations from the Department of Defense and Veterans Affairs facilities. Immunization Series Date Given Administered By Site Reaction Lot Number CVX Code Drug Air Quality Consultant Status Comments Source INFLUENZA, UNSPECIFIED FORMULATION 2023 88 complet ed [facility] COVID-19 (MODERNA), MRNA, LNP-S, PF, 50 MCG/0.5 ML (AGES 12+ YEARS) 1 2022 JACI ADEN LEFT DELTO ID [id number] 312 complet ed [facility] INFLUENZA, HIGH-DOSE, QUADRIVALENT 2022 [place] [facility] RIGHT DELTO ID [id number] 197 complet ed [facility] COVID-19 (MODERNA), MRNA, LNP-S, BIVALENT BOOSTER, PF, 50 MCG/0.5 ML OR 25MCG/0.25 ML DOSE 1 2021 229 complet ed MOD; [id number]; 3 [facility] [...] YRS (HISTORICAL) 2012 88 complet ed Through [facility] - employee [facility] [...] Feb 17, 2024 10:24 AM Reporting Lab: [facility] [address] [facility] [address] Performing Lab: [facility] [address] [facility] [address] [facility] LIPID PANEL, NON FASTING TRIGLYCERID E [MASS/VOLUM E] IN SERUM OR PLASMA 91 mg/dL 0 - 150 02/23 Specimen Type: SERUM No comment entered. Ordering Provider: KAUSHIK EDWARDS Report Released Date/Time: Feb 17, 2024 10:24 AM Reporting Lab: [facility] [facility] [address] [facility] [address] Performing Lab: [facility] [address] [facility] [address] [facility] LIPID PANEL, NON FASTING CHOLESTEROL IN LDL [MASS/VOLUM E] IN SERUM OR PLASMA BY CALCULATION 74 mg/dL 0 - 129 02/23 Specimen Type: SERUM No comment entered. Ordering Provider: KAUSHIK EDWARDS Report Released Date/Time: Feb 17, 2024 10:24 AM Reporting Lab: [facility] [place] [facility] [address] [facility] [address] Performing Lab: [facility] [address] [facility] [address] [facility] LIPID PANEL, NON FASTING CHOLESTEROL .TOTAL/CHOL ESTEROL IN HDL [MASS RATIO] IN SERUM OR PLASMA 2.3 02/23 Specimen Type: SERUM No comment entered. Ordering Provider: KAUSHIK EDWARDS Report Released Date/Time: Feb 17, 2024 10:24 AM Reporting Lab: [facility] [place] [facility] [address] [facility] [address] Performing Lab: [facility] [address] [address] [facility] TRN [facility]USE [facility] LIPID PANEL, NON FASTING CHOLESTEROL IN HDL [MASS/VOLUM E] IN SERUM OR PLASMA 73 mg/dL 40 - 60 02/23 H Specimen Type: SERUM No comment entered. Ordering Provider: KAUSHIK EDWARDS Report Released Date/Time: Feb 17, 2024 10:24 AM Reporting Lab: [facility] [place] [facility] [address] [facility] [address] Performing Lab: [facility] [address] [address] [facility] [place] [facility] BASIC METABOLIC PANEL (non-fast ing) UREA NITROGEN [MASS/VOLUM E] IN SERUM OR PLASMA 22 mg/dL 7 - 25 02/23 Specimen Type: SERUM No comment entered. Ordering Provider: KAUSHIK EDWARDS Report Released Date/Time: Feb 17, 2024 10:24 AM Reporting Lab: [facility] [place] [facility] [address] [facility] [address] Performing Lab: [facility] [place] [address] [address] [facility] BASIC METABOLIC PANEL (non-fast ing) GLUCOSE [MASS/VOLUM E] IN SERUM OR PLASMA 92 mg/dL 65 - 100 02/23 Specimen Type: SERUM No comment entered. Ordering Provider: KAUSHIK EDWARDS Report Released Date/Time: Feb 17, 2024 10:24 AM Reporting Lab: [address] [address] Performing Lab: [address] [address] [facility] BASIC METABOLIC PANEL (non-fast ing) SODIUM [MOLES/VOLU ME] IN SERUM OR PLASMA 139 mmol/L 135 - 145 02/23 Specimen Type: SERUM No comment entered. Ordering Provider: KAUSHIK EDWARDS Report Released Date/Time: Feb 17, 2024 10:24 AM Reporting Lab: [address] [address] Performing Lab: [address] [address] [facility] BASIC METABOLIC PANEL (non-fast ing) POTASSIUM [MOLES/VOLU ME] IN SERUM OR PLASMA 4.4 mmol/L 3.5 - 5.0 02/23 Specimen Type: SERUM No comment entered. Ordering Provider: KAUSHIK EDWARDS Report Released Date/Time: Feb 17, 2024 10:24 AM Reporting Lab: [address] [address] Performing Lab: [address] [address] [facility] BASIC METABOLIC PANEL (non-fast ing) CHLORIDE [MOLES/VOLU ME] IN SERUM OR PLASMA 105 mmol/L 100 - 110 02/23 Specimen Type: SERUM No comment entered. Ordering Provider: KAUSHIK EDWARDS Report Released Date/Time: Feb 17, 2024 10:24 AM Reporting Lab: [address] [address] Performing Lab: [facility]TRN [facility]USE[facility] [address] [facility] [address] [facility] BASIC METABOLIC PANEL (non-fast ing) CARBON DIOXIDE, TOTAL [MOLES/VOLU ME] IN SERUM OR PLASMA 24 meq/L 20 - 30 02/23 Specimen Type: SERUM No comment entered. Ordering Provider: KAUSHIK EDWARDS Report Released Date/Time: Feb 17, 2024 10:24 AM Reporting Lab: [facility]ITALRCARRAWAY [facility]ERN [facility]USE[facility] [address] [facility] [address] Performing Lab: [facility]ITALRCARRAWAY [facility] [address] [facility] [address] [facility] BASIC METABOLIC PANEL (non-fast ing) CREATININE [MASS/VOLUM E] IN SERUM OR PLASMA 1.04 mg/dL 0.50 - 1.40 02/23 Specimen Type: SERUM No comment entered. Ordering Provider: KAUSHIK EDWARDS Report Released Date/Time: Feb 17, 2024 10:24 AM Reporting Lab: [facility]ITAL[facility] [address] [facility] [address] Performing Lab: [facility]ITAL[facility] [address] [facility] [address] [facility] BASIC METABOLIC PANEL (non-fast ing) GLOMERULAR FILTRATION RATE/1.73 SQ M.PREDICTED [VOLUME RATE/AREA] IN SERUM, PLASMA OR BLOOD BY CREATININE- BASED FORMULA (CKD-EPI 2020) 70 mL/min 60 02/23 Specimen Type: SERUM No comment entered. Ordering Provider: KAUSHIK EDWARDS Report Released Date/Time: Feb 17, 2024 10:24 AM Reporting Lab: [facility] [address] [address] Performing Lab: [facility] [address] [address] [facility] THYROID T4 FREE(FT4) THYROXINE (T4) FREE [MASS/VOLUM E] IN SERUM OR PLASMA 1.12 ng/dL 0.6 - 1.6 07/29 Specimen Type: SERUM No comment entered. Ordering Provider: DIAMOND NIETO Report Released Date/Time: Jul 15, 2023 09:43 AM Reporting Lab: [facility] [address] [facility] [address] Performing Lab: [facility] [place] [facility] [address] [facility] [address] [facility] LIPID PANEL FASTING CHOLESTEROL [MASS/VOLUM E] IN SERUM OR PLASMA 164 mg/dL 07/29 Specimen Type: SERUM No comment entered. Ordering Provider: DIAMOND NIETO Report Released Date/Time: Jul 15, 2023 09:43 AM Reporting Lab: [facility] [place] [facility] [address] [facility] [address] Performing Lab: [facility] [place] [facility] [address] [facility] [address] [facility] LIPID PANEL FASTING TRIGLYCERID E [MASS/VOLUM E] IN SERUM OR PLASMA 67 mg/dL 0 - 150 07/29 Specimen Type: SERUM No comment entered. Ordering Provider: DIAMOND NIETO Report Released Date/Time: Jul 15, 2023 09:43 AM Reporting Lab: [facility] [place] [facility] [address] [facility] [address] Performing Lab: [facility] [place] [facility] [address] [facility] [address] [facility] LIPID PANEL FASTING CHOLESTEROL IN LDL [MASS/VOLUM E] IN SERUM OR PLASMA BY CALCULATION 78 mg/dL 0 - 129 07/29 Specimen Type: SERUM No comment entered. Ordering Provider: DIAMOND NIETO Report Released Date/Time: Jul 15, 2023 09:43 AM Reporting Lab: [facility] [place] [facility] [address] [facility] [address] Performing Lab: [facility] [place] [facility] [address] [facility] [address] [facility] LIPID PANEL FASTING CHOLESTEROL .TOTAL/CHOL ESTEROL IN HDL [MASS RATIO] IN SERUM OR PLASMA 2.2 07/29 Specimen Type: SERUM No comment entered. Ordering Provider: DIAMOND NIETO Report Released Date/Time: Jul 15, 2023 09:43 AM Reporting Lab: [facility] [place] [facility] [address] [facility] [address] Performing Lab: [facility] [place] [facility] [address] [facility] [address] [facility] LIPID PANEL FASTING CHOLESTEROL IN HDL [MASS/VOLUM E] IN SERUM OR PLASMA 73 mg/dL 40 - 60 07/29 H Specimen Type: SERUM No comment entered. Ordering Provider: DIAMOND NIETO Report Released Date/Time: Jul 15, 2023 09:43 AM Reporting Lab: [facility] [place] [address] [address] Performing Lab: [facility] [place] [address] [address] [facility] [place] [facility] LIVER FUNCTION PROTEIN [MASS/VOLUM E] IN SERUM OR PLASMA 6.5 g/dL 6.0 - 8.3 07/29 Specimen Type: SERUM No comment entered. Ordering Provider: DIAMOND NIETO Report Released Date/Time: Jul 15, 2023 09:43 AM Reporting Lab: [facility] [place] [address] [address] Performing Lab: [facility] [place] [address] [address] [facility] [facility] LIVER FUNCTION ALBUMIN [MASS/VOLUM E] IN SERUM OR PLASMA 3.7 g/dL 3.5 - 5.0 07/29 Specimen Type: SERUM No comment entered. Ordering Provider: DIAMOND NIETO Report Released Date/Time: Jul 15, 2023 09:43 AM Reporting Lab: [facility] [place] [address] [address] Performing Lab: [facility] [place] [address] [place] [address] [facility] LIVER FUNCTION ALKALINE PHOSPHATASE [ENZYMATIC ACTIVITY/VO LUME] IN SERUM OR PLASMA 66 U/L 40 - 150 07/29 Specimen Type: SERUM No comment entered. Ordering Provider: DIAMOND NIETO Report Released Date/Time: Jul 15, 2023 09:43 AM Reporting Lab: [facility] [place] [facility] [address] [facility] [address] Performing Lab: [facility] [address] [facility] [address] [facility] [place] [facility] LIVER FUNCTION ASPARTATE AMINOTRANSF ERASE [ENZYMATIC ACTIVITY/VO LUME] IN SERUM OR PLASMA 21 U/L 5 - 34 07/29 Specimen Type: SERUM No comment entered. Ordering Provider: DIAMOND NIETO Report Released Date/Time: Jul 15, 2023 09:43 AM Reporting Lab: [facility] [place] [facility] [address] [facility] [address] Performing Lab: [facility] [place] [facility] [address] [facility] [address] [facility] [place] [facility] LIVER FUNCTION ALANINE AMINOTRANSF ERASE [ENZYMATIC ACTIVITY/VO LUME] IN SERUM OR PLASMA 14 U/L 07/29 Specimen Type: SERUM No comment entered. Ordering Provider: DIAMOND NIETO Report Released Date/Time: Jul 15, 2023 09:43 AM Reporting Lab: [facility] [place] [facility] [address] [facility] [address] Performing Lab: [facility] [place] [facility] [address] [facility] [address] [facility] [place] [facility] LIVER FUNCTION BILIRUBIN.T OTAL [MASS/VOLUM E] IN SERUM OR PLASMA 0.6 mg/dL 0.2 - 1.2 07/29 Specimen Type: SERUM No comment entered. Ordering Provider: DIAMOND NIETO Report Released Date/Time: Jul 15, 2023 09:43 AM Reporting Lab: [facility] [place] [facility] [address] [facility] [address] Performing Lab: [facility] [place] [facility] [address] [facility] [address] [facility] [place] [facility] BASIC METABOLIC PANEL (fasting) UREA NITROGEN [MASS/VOLUM E] IN SERUM OR PLASMA 23 mg/dL 7 - 25 07/29 Specimen Type: SERUM No comment entered. Ordering Provider: DIAMOND NEITO Report Released Date/Time: Jul 15, 2023 09:43 AM Reporting Lab: [facility] [place] [facility] [address] [facility] [address] Performing Lab: [facility] [place] [facility] [address] [facility] [address] [facility] [place] [facility] BASIC METABOLIC PANEL (fasting) GLUCOSE [MASS/VOLUM E] IN SERUM OR PLASMA 90 mg/dL 65 - 100 07/29 Specimen Type: SERUM No comment entered. Ordering Provider: DIAMOND NIETO Report Released Date/Time: Jul 15, 2023 09:43 AM Reporting Lab: [facility] [place] [facility] [address] [facility] [address] Performing Lab: [facility] [place] [facility] [address] [facility] [address] [facility] [place] [facility] BASIC METABOLIC PANEL (fasting) SODIUM [MOLES/VOLU ME] IN SERUM OR PLASMA 140 mmol/L 135 - 145 07/29 Specimen Type: SERUM No comment entered. Ordering Provider: DIAMOND NIETO Report Released Date/Time: Jul 15, 2023 09:43 AM Reporting Lab: [facility] [place] [facility] [address] [facility] [address] Performing Lab: [facility] [place] [facility] [address] [facility] [address] [facility] [place] [facility] BASIC METABOLIC PANEL (fasting) POTASSIUM [MOLES/VOLU ME] IN SERUM OR PLASMA 4.4 mmol/L 3.5 - 5.0 07/29 Specimen Type: SERUM No comment entered. Ordering Provider: DIAMOND NIETO Report Released Date/Time: Jul 15, 2023 09:43 AM Reporting Lab: [facility] [place] [facility] [address] [facility] [address] Performing Lab: [facility] [place] [facility] [address] [facility] [address] [facility] [place] [facility] BASIC METABOLIC PANEL (fasting) CHLORIDE [MOLES/VOLU ME] IN SERUM OR PLASMA 105 mmol/L 100 - 110 07/29 Specimen Type: SERUM No comment entered. Ordering Provider: DIAMOND NIETO Report Released Date/Time: Jul 15, 2023 09:43 AM Reporting Lab: [facility] [place] [facility] [address] [facility] [address] Performing Lab: [facility] [place] [facility] [address] [facility] [address] [facility] [place] [facility] BASIC METABOLIC PANEL (fasting) CARBON DIOXIDE, TOTAL [MOLES/VOLU ME] IN SERUM OR PLASMA 25 meq/L 20 - 30 07/29 Specimen Type: SERUM No comment entered. Ordering Provider: DIAMOND NIETO Report Released Date/Time: Jul 15, 2023 09:43 AM Reporting Lab: [facility] [place] [facility] [address] [facility] [address] Performing Lab: [facility] [place] [facility] [address] [facility] [address] [facility] [place] [facility] BASIC METABOLIC PANEL (fasting) CREATININE [MASS/VOLUM E] IN SERUM OR PLASMA 1.07 mg/dL 0.50 - 1.40 07/29 Specimen Type: SERUM No comment entered. Ordering Provider: DIAMOND NIETO Report Released Date/Time: Jul 15, 2023 09:43 AM Reporting Lab: [facility] [place] [facility] [address] [facility] [address] Performing Lab: [facility] [place] [facility] [address] [facility] [address] [facility] BASIC METABOLIC PANEL (fasting) GLOMERULAR FILTRATION RATE/1.73 SQ M.PREDICTED [VOLUME RATE/AREA] IN SERUM, PLASMA OR BLOOD BY CREATININE- BASED FORMULA (CKD-EPI 2020) 68 mL/min 60 07/29 Specimen Type: SERUM No comment entered. Ordering Provider: DIAMOND NIETO Report Released Date/Time: Jul 15, 2023 09:43 AM Reporting Lab: [facility] [place] [address] Performing Lab: [facility] [place] [facility] [address] [facility] [address] [facility] TSH THYROTROPIN [UNITS/VOLU ME] IN SERUM OR PLASMA 1.90 u[IU]/ mL 0.35 - 5.00 07/29 Specimen Type: SERUM No comment entered. Ordering Provider: DIAMOND NIETO Report Released Date/Time: Jul 15, 2023 09:43 AM Reporting Lab: [facility] [address] [address] Performing Lab: [facility] [place] [facility] [address] [facility] [address] [facility] CBC AND DIFF (AUTO) LEUKOCYTES [#/VOLUME] IN BLOOD BY AUTOMATED COUNT 6.98 10*3/u L 4.50 - 11.00 07/29 Specimen Type: BLOOD No comment entered. Ordering Provider: DIAMOND NIETO Report Released Date/Time: Jul 15, 2023 09:43 AM Reporting Lab: [facility] [place] [facility] [address] [facility] [address] Performing Lab: [facility] [place] [address] [address] [facility] CBC AND DIFF (AUTO) ERYTHROCYTE S [#/VOLUME] IN BLOOD BY AUTOMATED COUNT 4.45 10*6/u L 4.23 - 5.66 07/29 Specimen Type: BLOOD No comment entered. Ordering Provider: DIAMOND NIETO Report Released Date/Time: Jul 15, 2023 09:43 AM Reporting Lab: [facility] [address] [facility] [address] Performing Lab: [facility] [place] [facility] [address] [facility] [address] [facility] CBC AND DIFF (AUTO) HEMOGLOBIN [MASS/VOLUM E] IN BLOOD 13.9 g/dL 12.8 - 17 07/29 Specimen Type: BLOOD No comment entered. Ordering Provider: DIAMOND NIETO Report Released Date/Time: Jul 15, 2023 09:43 AM Reporting Lab: [facility] [place] [facility] [address] [facility] [address] Performing Lab: [facility] [place] [facility] [address] [facility] [address] [facility] CBC AND DIFF (AUTO) HEMATOCRIT [VOLUME FRACTION] OF BLOOD BY AUTOMATED COUNT 41.7 39.2 - 50.4 07/29 Specimen Type: BLOOD No comment entered. Ordering Provider: DIAMOND NIETO Report Released Date/Time: Jul 15, 2023 09:43 AM Reporting Lab: [facility] [place] [facility] [address] [facility] [address] Performing Lab: [facility] [place] [facility] [address] [facility] [address] [facility] CBC AND DIFF (AUTO) MCV [ENTITIC VOLUME] BY AUTOMATED COUNT 93.7 fL 82 - 99 07/29 Specimen Type: BLOOD No comment entered. Ordering Provider: DIAMOND NIETO Report Released Date/Time: Jul 15, 2023 09:43 AM Reporting Lab: [facility] [place] [facility] [address] [facility] [address] Performing Lab: [facility] [place] [facility] [address] [facility] [address] [facility] CBC AND DIFF (AUTO) MCHC [MASS/VOLUM E] BY AUTOMATED COUNT 33.3 g/dL 30.8 - 35.1 07/29 Specimen Type: BLOOD No comment entered. Ordering Provider: DIAMOND NIETO Report Released Date/Time: Jul 15, 2023 09:43 AM Reporting Lab: [facility] [address] [facility] [address] Performing Lab: [facility] [address] [facility] [address] [facility] CBC AND DIFF (AUTO) PLATELETS [#/VOLUME] IN BLOOD BY AUTOMATED COUNT 244 10*3/u L 140 - 360 07/29 Specimen Type: BLOOD No comment entered. Ordering Provider: DIAMOND NIETO Report Released Date/Time: Jul 15, 2023 09:43 AM Reporting Lab: [facility] [address] [facility] [address] Performing Lab: [facility] [place] [facility] [address] [facility] [address] [facility] CBC AND DIFF (AUTO) ERYTHROCYTE DISTRIBUTIO N WIDTH [RATIO] BY AUTOMATED COUNT 15.9 12.0 - 16.0 07/29 Specimen Type: BLOOD No comment entered. Ordering Provider: DIAMOND NIETO Report Released Date/Time: Jul 15, 2023 09:43 AM Reporting Lab: [facility] [address] [facility] [address] Performing Lab: [facility] [address] [facility] [address] [facility] CBC AND DIFF (AUTO) MONOCYTES [#/VOLUME] IN BLOOD BY AUTOMATED COUNT 0.63 10*3/u L 0.30 - 1.10 07/29 Specimen Type: BLOOD No comment entered. Ordering Provider: DIAMOND NIETO Report Released Date/Time: Jul 15, 2023 09:43 AM Reporting Lab: [facility] [address] [facility] [address] Performing Lab: [facility] [address] [facility] [address] [facility] CBC AND DIFF (AUTO) MCH [ENTITIC MASS] BY AUTOMATED COUNT 31.2 pg 26.2 - 32.6 07/29 Specimen Type: BLOOD No comment entered. Ordering Provider: DIAMOND NIETO Report Released Date/Time: Jul 15, 2023 09:43 AM Reporting Lab: [facility] [address] [facility] [address] Performing Lab: [facility] [address] [facility] [address] [facility] CBC AND DIFF (AUTO) NEUTROPHILS /100 LEUKOCYTES IN BLOOD BY AUTOMATED COUNT 65.6 43.7 - 75.8 07/29 Specimen Type: BLOOD No comment entered. Ordering Provider: DIAMOND NIETO Report Released Date/Time: Jul 15, 2023 09:43 AM Reporting Lab: [facility] [address] [place] [address] Performing Lab: [facility] [address] [facility] [address] [facility] CBC AND DIFF (AUTO) LYMPHOCYTES /100 LEUKOCYTES IN BLOOD BY AUTOMATED COUNT 21.8 14.0 - 42.3 07/29 Specimen Type: BLOOD No comment entered. Ordering Provider: DIAMOND NIETO Report Released Date/Time: Jul 15, 2023 09:43 AM Reporting Lab: [facility] [address] [facility] [address] Performing Lab: [facility] [address] [facility] [address] [facility] CBC AND DIFF (AUTO) MONOCYTES/1 00 LEUKOCYTES IN BLOOD BY AUTOMATED COUNT 9.0 5.1 - 13.7 07/29 Specimen Type: BLOOD No comment entered. Ordering Provider: DIAMOND NIETO Report Released Date/Time: Jul 15, 2023 09:43 AM Reporting Lab: [facility] [place] [facility] [address] [facility] [address] Performing Lab: [facility] [address] [facility] [address] [facility] CBC AND DIFF (AUTO) EOSINOPHILS /100 LEUKOCYTES IN BLOOD BY AUTOMATED COUNT 2.7 0.4 - 6.8 07/29 Specimen Type: BLOOD No comment entered. Ordering Provider: DIAMOND NIETO Report Released Date/Time: Jul 15, 2023 09:43 AM Reporting Lab: [facility] [address] [facility] [address] Performing Lab: [facility] [address] [facility] [address] [facility] [place] CBC AND DIFF (AUTO) BASOPHILS/1 00 LEUKOCYTES IN BLOOD BY AUTOMATED COUNT 0.6 0.1 - 2.0 07/29 Specimen Type: BLOOD No comment entered. Ordering Provider: DIAMOND NIETO Report Released Date/Time: Jul 15, 2023 09:43 AM Reporting Lab: [facility] [place] [facility] [address] [facility] [address] Performing Lab: [facility] [place] [facility] [address] [facility] [address] [facility] CBC AND DIFF (AUTO) NEUTROPHILS [#/VOLUME] IN BLOOD BY AUTOMATED COUNT 4.58 10*3/u L 2.20 - 7.60 07/29 Specimen Type: BLOOD No comment entered. Ordering Provider: DIAMOND NIETO Report Released Date/Time: Jul 15, 2023 09:43 AM Reporting Lab: [facility] [address] [facility] [address] Performing Lab: [facility] [address] [facility] [address] [facility] CBC AND DIFF (AUTO) LYMPHOCYTES [#/VOLUME] IN BLOOD BY AUTOMATED COUNT 1.52 10*3/u L 1.00 - 3.20 07/29 Specimen Type: BLOOD No comment entered. Ordering Provider: DIAMOND NIETO Report Released Date/Time: Jul 15, 2023 09:43 AM Reporting Lab: [facility] [address] [facility] [address] Performing Lab: [facility] [address] [facility] [address] [facility] CBC AND DIFF (AUTO) EOSINOPHILS [#/VOLUME] IN BLOOD BY AUTOMATED COUNT 0.19 10*3/u L 0.03 - 0.44 07/29 Specimen Type: BLOOD No comment entered. Ordering Provider: DIAMOND NIETO Report Released Date/Time: Jul 15, 2023 09:43 AM Reporting Lab: [facility] [address] [facility] [address] Performing Lab: [facility] [address] [facility] [address] [facility] CBC AND DIFF (AUTO) BASOPHILS [#/VOLUME] IN BLOOD BY AUTOMATED COUNT 0.04 10*3/u L 0.01 - 0.13 07/29 Specimen Type: BLOOD No comment entered. Ordering Provider: DIAMOND NIETO Report Released Date/Time: Jul 15, 2023 09:43 AM Reporting Lab: [facility] [address] [facility] [address] Performing Lab: [facility] [address] [facility] [address] [facility] CBC AND DIFF (AUTO) IMMATURE GRANULOCYTE S/100 LEUKOCYTES IN BLOOD BY AUTOMATED COUNT 0.3 0.0 - 0.7 07/29 Specimen Type: BLOOD No comment entered. Ordering Provider: DIAMOND NIETO Report Released Date/Time: Jul 15, 2023 09:43 AM Reporting Lab: [facility] [address] [facility] [address] Performing Lab: [facility] [facility] [address] [facility] [address] [facility] CBC AND DIFF (AUTO) IMMATURE GRANULOCYTE S [#/VOLUME] IN BLOOD 0.02 10*3/u L 0.00 - 0.06 07/29 Specimen Type: BLOOD No comment entered. Ordering Provider: DIAMOND NIETO Report Released Date/Time: Jul 15, 2023 09:43 AM Reporting Lab: [facility] [place] [address] [address] Performing Lab: [facility] [place] [facility] [address] [facility] [address] [facility] BASIC METABOLIC PANEL (fasting) UREA NITROGEN [MASS/VOLUM E] IN SERUM OR PLASMA 20 mg/dL 7 - 25 02/10 Specimen Type: SERUM No comment entered. Ordering Provider: DIAMOND NIETO Report Released Date/Time: Aug 01, 2022 10:55 AM Reporting Lab: [facility] [place] [address] [address] Performing Lab: [facility] [place] [address] [address] [facility] [place] [facility] BASIC METABOLIC PANEL (fasting) GLUCOSE [MASS/VOLUM E] IN SERUM OR PLASMA 101 mg/dL 65 - 100 02/10 H Specimen Type: SERUM No comment entered. Ordering Provider: DIAMOND NIETO Report Released Date/Time: Aug 01, 2022 10:55 AM Reporting Lab: [facility] [place] [address] [address] Performing Lab: [facility] [place] [address] [address] [facility] [facility] BASIC METABOLIC PANEL (fasting) SODIUM [MOLES/VOLU ME] IN SERUM OR PLASMA 141 mmol/L 135 - 145 02/10 Specimen Type: SERUM No comment entered. Ordering Provider: DIAMOND NIETO Report Released Date/Time: Aug 01, 2022 10:55 AM Reporting Lab: [facility] [place] [address] [address] Performing Lab: [facility] [place] [facility] [address] [facility] [address] [facility] [place] [facility] BASIC METABOLIC PANEL (fasting) POTASSIUM [MOLES/VOLU ME] IN SERUM OR PLASMA 4.6 mmol/L 3.5 - 5.0 02/10 Specimen Type: SERUM No comment entered. Ordering Provider: DIAMOND NIETO Report Released Date/Time: Aug 01, 2022 10:55 AM Reporting Lab: [facility] [place] [facility] [address] [facility] [address] Performing Lab: [facility] [place] [facility] [address] [facility] [address] [facility] [place] [facility] BASIC METABOLIC PANEL (fasting) CHLORIDE [MOLES/VOLU ME] IN SERUM OR PLASMA 105 mmol/L 100 - 110 02/10 Specimen Type: SERUM No comment entered. Ordering Provider: DIAMOND NIETO Report Released Date/Time: Aug 01, 2022 10:55 AM Reporting Lab: [facility] [place] [facility] [address] [facility] [address] Performing Lab: [facility] [place] [facility] [address] [facility] [address] [facility] [place] [facility] BASIC METABOLIC PANEL (fasting) CARBON DIOXIDE, TOTAL [MOLES/VOLU ME] IN SERUM OR PLASMA 27 meq/L 20 - 30 02/10 Specimen Type: SERUM No comment entered. Ordering Provider: DIAMOND NIETO Report Released Date/Time: Aug 01, 2022 10:55 AM Reporting Lab: [facility] [place] [facility] [address] [facility] [address] Performing Lab: [facility] [place] [facility] [address] [facility] [address] [facility] [place] [facility] BASIC METABOLIC PANEL (fasting) CREATININE [MASS/VOLUM E] IN SERUM OR PLASMA 1.24 mg/dL 0.50 - 1.40 02/10 Specimen Type: SERUM No comment entered. Ordering Provider: DIAMOND NIETO Report Released Date/Time: Aug 01, 2022 10:55 AM Reporting Lab: [facility] [place] [facility] [address] [facility] [address] Performing Lab: [facility] [place] [facility] [address] [facility] [address] [facility] [place] [facility] BASIC METABOLIC PANEL (fasting) GLOMERULAR FILTRATION RATE/1.73 SQ M.PREDICTED [VOLUME RATE/AREA] IN SERUM, PLASMA OR BLOOD BY CREATININE- BASED FORMULA (CKD-EPI 2020) 57 mL/min 60 02/10 L Specimen Type: SERUM No comment entered. Ordering Provider: DIAMOND NIETO Report Released Date/Time: Aug 01, 2022 10:55 AM Reporting Lab: [facility] [place] [facility] [address] [facility] [address] Performing Lab: [facility] [place] [facility] [address] [facility] [address] [facility] [place] [facility] LIVER FUNCTION PROTEIN [MASS/VOLUM E] IN SERUM OR PLASMA 6.9 g/dL 6.0 - 8.3 02/10 Specimen Type: SERUM No comment entered. Ordering Provider: DIAMOND NIETO Report Released Date/Time: Aug 01, 2022 10:55 AM Reporting Lab: [facility] [place] [facility] [address] [facility] [address] Performing Lab: [facility] [place] [facility] [address] [facility] [address] [facility] [place] LIVER FUNCTION ALBUMIN [MASS/VOLUM E] IN SERUM OR PLASMA 4.0 g/dL 3.5 - 5.0 02/10 Specimen Type: SERUM No comment entered. Ordering Provider: DIAMOND NIETO Report Released Date/Time: Aug 01, 2022 10:55 AM Reporting Lab: [facility] [place] [facility] [address] [facility] [address] Performing Lab: [facility] [place] [facility] [address] [facility] [address] [facility] LIVER FUNCTION ALKALINE PHOSPHATASE [ENZYMATIC ACTIVITY/VO LUME] IN SERUM OR PLASMA 62 U/L 40 - 150 02/10 Specimen Type: SERUM No comment entered. Ordering Provider: DIAMOND NIETO Report Released Date/Time: Aug 01, 2022 10:55 AM Reporting Lab: [facility] [place] [facility] [address] [facility] [address] Performing Lab: [facility] [place] [facility] [address] [facility] [address] [facility] LIVER FUNCTION ASPARTATE AMINOTRANSF ERASE [ENZYMATIC ACTIVITY/VO LUME] IN SERUM OR PLASMA 24 U/L 5 - 34 02/10 Specimen Type: SERUM No comment entered. Ordering Provider: DIAMOND NIETO Report Released Date/Time: Aug 01, 2022 10:55 AM Reporting Lab: [facility] [place] [facility] [address] [facility] [address] Performing Lab: [facility] [place] [facility] [address] [facility] [address] [facility] LIVER FUNCTION ALANINE AMINOTRANSF ERASE [ENZYMATIC ACTIVITY/VO LUME] IN SERUM OR PLASMA 17 U/L 02/10 Specimen Type: SERUM No comment entered. Ordering Provider: DIAMOND NIETO Report Released Date/Time: Aug 01, 2022 10:55 AM Reporting Lab: [facility] [place] [facility] [address] [facility] [address] Performing Lab: [facility] [place] [facility] [address] [facility] [address] [facility] LIVER FUNCTION BILIRUBIN.T OTAL [MASS/VOLUM E] IN SERUM OR PLASMA 0.6 mg/dL 0.2 - 1.2 02/10 Specimen Type: SERUM No comment entered. Ordering Provider: DIAMOND NIETO Report Released Date/Time: Aug 01, 2022 10:55 AM Reporting Lab: [facility] [place] [facility] [address] [facility] [address] Performing Lab: [facility] [place] [facility] [address] [facility] [address] [facility] Vital Signs Combined list of inpatient and outpatient Vital Signs from Department of Defense and Veterans Affairs, ranging from 12 months to all on record, depending upon the facility. Vital Sign Value Date Comments Source SYSTOLIC BLOOD PRESSURE 168 03/19/20 24 09:08:18 [facility] DIASTOLIC BLOOD PRESSURE 78 024 09:08:18 [facility] PULSE OXIMETRY 96 03/19/2024 09:08:18 [facility] WEIGHT 158 03/19/2024 09:08:18 [facility] BMI 28 kg/m2 03/19/2024 09:08:18 [facility] [...] 15:27:43 [facility] BMI 29 kg/m2 08/18/2023 15:27:43 [facility] [...] from Department of Veterans Affairs facilities going backup to the last 18 months, not all VA inpatient encounters are included; 2) Encounters from the Department of [facility] facilities going backup to 280 months. Location Location Details Encounter Type Encounter Number Reason For Visit Attending Provider ADM Date DC Date Status Disposition Source [facility] Outpatient Encounter [id number] 02/04 [facility]counter [id number] 02/06 [facility] Outpatient [facility]counter [id number] 02/19 [facility] OFFICE O/P EST LOW 20-29 MIN [id number] Diagnos is: ICD-10- CM Z00.01 Encount er for general adult medical exam w abnorma l landon s TENISHA NIETO 02/19 [facility] HEARING AID REPAIR/MOD IFYING [id number] Diagnos is: ICD-10- CM Z46.1 Encount er for fitting and adjustm ent of hearing aid URBANO ORTIZ 02/20 [facility] Out[facility] Encounter [id number] 02/20 [facility] Encounter [id number] 03/21 [facility] Out[facility] Encounter [id number] 03/24 [facility] Out[facility] Encounter [id number] MILEvangelina LIZZETH Price 04/07 [facility] OFF/OP EST SEPTEMBER X REQ PHY/QHP [id number] Diagnos is: ICD-10- CM Z23 Encount er for immuniz ation DIANA ADEN P 04/11 [facility] Out[facility] Encounter [id number] 06/09 [facility] [place] [id number] Diagnos is: ICD-10- CM H25.13 Age-rel ated nuclear catarac t, bilater al ROSA ELENACARMELO H B 06/18 [facility] FIT SPECTACLES MONOFOCAL [id number] Diagnos is: ICD-10- CM Z46.0 Encount er for fit/adj st of spectac les and contact lenses LIT CUBAA H B 06/18 [facility] Out[facility] Encounter [id number] 06/25 [facility] Out[facility]counter [id number] 07/15 [facility] Out[facility]counter [id number] 07/28 [facility]counter [id number] 08/03 [facility] [id number] 08/05 [facility] Out[facility] Encounter [id number] BECKA TALBERT 08/10 [facility] OFFICE O/P EST MOD 30 MIN [id number] Diagnos is: ICD-10- CM I48.0 Paroxys mal atrial fibrill ation SAULOTENISHA SALINAS MMED JAWED 08/17 [facility] Out[facility] Encounter [id number] Penelope HENDERSON 09/15 [facility] Encounter [id number] Penelope HENDERSON E 02/16 [facility] En[facility] [id number] 02/25 [facility] Encounter [id number] 03/05 [facility] OFF[facility] O/P EST MOD 30 MIN [id number] Diagnos is: ICD-10- CM E03.9 Hypothy roidism , unspeci fied FURCOLO,TI NA 03/19 [facility] HEARING AID REPAIR/MOD IFYING [id number] Diagnos is: ICD-10- CM Z46.1 Encount er for fitting and adjustm ent of hearing aid FRANCY TORIBIO 04/06 [facility] Out[facility] Encounter [id number] 04/14 [facility] COMPRE [place]AM [place] PT 1/ [id number] Diagnos is: ICD-10- CM Z96.1 Presenc e of intraoc ular lens MERJACQUELYN,CARMELO H B 06/21 [facility] FIT SPECTACLES BIFOCAL [id number] Diagnos is: ICD-10- CM Z46.0 Encount er for fit/adj st of spectac les and contact lenses MERJACQUELYN,CARMELO H B 06/24 [facility] Social History Combined list of available smoking, tobacco, and other social history from Department of Defense and [facility] facilities. Social History Type Response Date Comment Sourc e Tobacco smoking status [facility] VA-TOBACCO NEVER USED 08[facility]18[facility]2023 [facility] [...] of tobacco use LIFETIME NON-TOBACCO USER 06/04/2016 [facility] History of tobacco use LIFETIME NON-TOBACCO USER 05/09/2015 . [facility] History of tobacco use LIFETIME NON-TOBACCO USER 10/27/2012 [facility] Plan of Care List of future care activities from Department of [facility] facilities. Additional future care activities may be listed in the Assessment and Plan section. Date/Time Care Activity Care Activity Detail Facili ty 09/14/2024 AMBULATORY - MEDICINE AMBULATORY - MEDICI NE [facility] 09/30/2024 AMBULATORY - REHAB MEDICINE AMBULATORY - REHAB MEDICINE [facility]
--- OUTSIDE RECORDS SUMMARY | 2024-07-30 10:20 | XMS_ITS | Encounter Summary ---
Author Name [facility] [place] [facility] [place] Address [address] [place] [address] Care Team Providers Care Store Detective Name Role Phone FIDENCIO EDWARDS Primary Care [...] MEDICARE SUPPLEMEN JOVANNA Jun 26, 2007 PLAN [id number] ROSA FLANNERY PATIENT MEDICARE (WNR) MEDICARE (M) PART B May 26, 2007 PART B [id number] ROSA FLANNERY PATIENT MEDICARE (WNR) MEDICARE (M) PART A Dec 24, 2002 PART A [id number] ROSA FLANNERY PATIENT Selected Encounter This section includes the information on record at [place] for the Encounter. Date/Time Encounter Type Encounter Description Reason Provider Source Jun 21, 2024 10:30 AM COMPRE OPH EXAM EST PT 1/> OPTOMETRY ICD-10-CM Z96.1 Presence of intraocular lens MERHAR,BHAVANI B IHE Encounter Template Text not used by [place] Assessments - Encounter Diagnoses This section includes the primary and secondary diagnoses documented for the Encounter. Date/Time Primary/Secondary Diagnosis Diagnosis Name Provider Source Jul 09, 2024 08:13 AM PRIMARY Presence of intraocular lens BHAVANI CUBA B [place] [facility] [place] [facility] Jul 09, 2024 08:13 AM SECONDARY Regular astigmatism, bilateral BHAVANI CUBA B [facility] [place] [facility] Plan of Treatment: Future Appointments (+ 6 months) and Future Tests (+/- 45 days) The Plan of Treatment section includes future care activities for the patient from all [place] treatmentfacilities. This section includes future appointments and future orders which are active, pending or scheduled. Future Appointments This section includes appointments that were scheduled to occur 6 months from the date of the Encounter, up to a maximum of 20 appointments. The data comes from all [place] treatment facilities. Appointment Date/Time Appointment Type Appointme nt Facility Name Sep 14, 2024 09:00 AM AMBULATORY - MEDICINE [place] [facility] [place] [facility] September 30, 2024 09:00 AM AMBULATORY - REHAB MEDICIN [place] [facility] [place] [facility] Social History: Smoking Status (Most [...] 18, 2023 03:30 PM VA-TOBACCO NEVER USED [place] [facility] [place] [facility] Tobacco Use History This section includes a history of the smoking, or tobacco-related health factors, that were collected on or before the date of the Encounter. The data comes from the [facility] facility where the Encounter took place. Date/Time Smoking Status/Tobacco Use Comment F acility Aug 01, 2022 10:30 AM VA-TOBACCO NEVER USED [facility] [place] [facility] Jul 03, 2021 01:00 PM VA-TOBACCO NEVER USED [facility] [place] [facility] Jun 16, 2020 08:30 AM VA-TOBACCO NEVER USED [facility] [place] [facility] Dec 07, 2018 01:47 PM VA-TOBACCO NEVER USED [facility] [place] [facility] Dec 15, 2017 08:52 AM VA-TOBACCO NEVER USED [facility] [place] [facility] Jun 02, 2017 03:31 PM LIFETIME NON-TOBACCO USER [facility] [place] [facility] Jun 04, 2016 08:53 AM LIFETIME NON-TOBACCO USER [facility] [place] [facility] May 09, 2015 09:21 AM LIFETIME NON-TOBACCO USER . [facility] [place] [facility] Oct 27, 2012 10:50 AM LIFETIME NON-TOBACCO USER [facility] [place] [facility] Encounter Notes: All associated encounter [...] Description Z77.29 Exposure to potentially hazardous substance ([facility] [id number]) E03.9 Hypothyroidism ([facility] 88777255) I50.30 Diastolic heart failure ([facility] [id number]) N41.1 Chronic prostatitis ([facility] 95459266) Z79.01 Long-term current use of anticoagulant ([facility] [id number]) K21.9 Gastroesophageal reflux disease ([facility] [id number]) M54.5 Low back pain ([facility] 720284966) I48.0 Paroxysmal atrial fibrillation ([facility] 359163894) I10. Essential hypertension ([facility] 51760313) E78.00 Hypercholesterolemia ([facility] 29868531) F52.21 History of male erectile disorder ([facility] [id number]) Other: SYSTEMIC MEDICATIONS/OCULAR MEDICATIONS: Active and Recently [...] refraction and tonometry all performed now by certified veterinary technician and reviewed by attending provider. Dilation drops instilled by certified veterinary technician after angle assessment and dilation warning [...] this [facility] (local) and dispensed from another [place] or [facility] facility (remote) as well as [...] Remote Allergy/ADR Data available for this patient [facility] [place] [facility] [place] [facility] [place] LISINOPRIL Med Recon NoGlossary (Tool #1) INCLUDED IN THIS LIST: Alphabetical list of active outpatient prescriptions dispensed from this [place] (local) and dispensed from another [place] or [facility] facility (remote) as well as inpatient orders (local pending and active), local clinic medications, locally documented non-VA medications, and local prescriptions that have or been discontinued in the past 90 days. Non-VA Meds Last Documented On: Mar 19, 2024 NOTE The display of VA prescriptions dispensed from another [place] or [facility] facility (remote) is limited to active outpatient prescription entries matched to National Drug File at the originating site and may not include some items such as investigational drugs, compounds, etc. NOT INCLUDED IN THIS LIST: Medications self-entered by the patient into personal health records (i.e. Angle) are NOT included in this list. Non-VA medications documented outside this [place], remote inpatient orders (regardless of status) and [...] ONE TABLET BY MOUTH TWICE DAILY Rx# [id number] Last Released: 05/28/24 Qty/Days Supply: Rx Expiration Date: 08/11/24 Refills Remainin OUTPT ATORVASTATIN CALCIUM 20MG TAB (Status = Active) TAKE ONE TABLET BY MOUTH EVERY DAY FOR CHOLESTEROL Rx# [id number] Last Released: 05/28/24 Qty/Days Supply: Rx Expiration Date: 08/11/24 Refills Remainin OUTPT FINASTERIDE 5MG TAB (Status = Active) TAKE ONE TABLET BY MOUTH ONCE DAILY FOR PROSTATE Rx# [id number] Last Released: 05/28/24 Qty/Days Supply: Rx Expiration Date: 08/11/24 Refills Rem[facility]in Non-VA FUROSEMIDE 20MG TAB TAKE ONE TABLET BY MOUTH OUTPT LEVOTHYROXINE NA (SYNTHROID) 75MCG TAB (Status = Active) TAKE ONE TABLET BY MOUTH EVERY MORNING 30 MINUTES BEFORE BREAKFAST FOR THYROID TAKE ON AN EMPTY STOMACH WITH A FULL GLASS OF WATER Rx# [id number] Last Released: 03/22/24 Qty/Days Supply: Rx Expiration Date: 03/20/25 Refills Remainin Indication: FOR THYROID OUTPT OMEPRAZOLE 20MG EC CAP (Status = Active) TAKE TWO CAPSULES BY MOUTH EVERY MORNING 30 MINUTES BEFORE BREAKFAST FOR STOMACH ULCER Rx# [id number] Last Released: 03/22/24 Qty/Days Supply: 180 Rx Expiration Date: 08/11/24 Refills Remainin Indication: FOR STOMACH ULCER OUTPT SILDENAFIL CITRATE 100MG TAB (Status = Active) TAKE ONE TABLET BY MOUTH EVERY DAY NEEDED TAKE 1 HOUR PRIOR TO SEXUAL ACTIVITY Rx# [id number] Last Released: 03/22/24 Qty/Days Supply: Rx Expiration Date: 03/20/25 Refills Remainin OUTPT TAMSULOSIN HCL 0.4MG CAP (Status = Active) TAKE ONE CAPSULE BY MOUTH ONCE DAILY Rx# [id number] Last Released: 03/22/24 Qty/Days Supply: Rx Expiration Date: 09/16/24 Refills Remainin SUPPLIES /leo CUBA OD Computational Linguist Signed: 06/21/2024 15:01 BHAVANI CUBA [place] [facility] [place] [facility] Jun 21, 2024 08:35 AM OPTOMETRY PRINTING MECHANIST NOTE: LOCAL TITLE: OPTOMETRY PRINTING MECHANIST NOTE STANDARD TITLE: OPTOMETRY PRINTING MECHANIST NOTE DATE OF NOTE: JUN 21, 2024@08:35 [...] pain 8. Paroxysmal atrial fibrillation (SNOMED CT [id number]) 9. Essential hypertension (SNOMED CT 07569609) 10. Hypercholesterolemia (SNOMED CT 32591520) 11. History of male erectile disorder (SNOMED CT 657444328) Active Outpatient Medications (including Supplies): Active Outpatient [...] is not contributory to today's visit. Optometry Supervisor Steffen House Attending Provider Note: Date of Last Exam:06/18/2023 Location: [facility] Last Dr Darrion MD appt (04/14/2024 with [...] surgery. Current Wear:TRANSPOSED exp 03/2026 (scanned to [facility]) OD:Pl -0.50 x 125 OS:Pl -0.50 [...] 06/21/2024 10:49 JAKY SANCHEZ [facility]
[2024-07-30 10:31] LABS: Basophils Percent Auto 0.4 % (0-2); Eosinophils Absolute Auto 0.2 X10*3/uL (0.0-0.4); Eosinophils Percent Auto 2.4 % (0-4); Hematocrit 43.3 % (42.0-52.0); Hemoglobin 14.3 g/dl (14.0-18.0); Imm Gran Abs Auto 0.02 X10*3/uL (0.00-0.03); Imm Gran Pct Auto 0.2 % (0.0-0.4); Lymphocytes Absolute Auto 1.5 X10*3/uL (1.2-4.9); Lymphocytes Percent Auto 18.3 % (20-40); Mean Corpuscular Hemoglobin 31.7 pg (27.0-33.0); Mean Platelet Volume 11.2 fL (9.4-12.4); Monocytes Absolute Auto 0.7 X10*3/uL (0.1-1.2); Monocytes Percent Auto 8.4 % (2-11); Neutrophils Absolute Auto 5.7 x10*3/uL (2.0-8.3); Neutrophils Percent Auto 70.3 % (45-73); Platelet Count 252 X10*3/uL (160-400); Red Blood Count 4.51 X10*6/uL (4.60-5.80); Red Cell Distribution Width 16.2 % (11.0-16.0); White Blood Count 8.2 X10*3/uL (4.8-10.8)
[2024-07-30 11:05] LABS: Appearance Urine Clear; Color Urine Yellow; Glucose Urine UA Negative (Negative); Leukocyte Esterase Urine Negative (Negative); Nitrite Urine Negative (Negative); PH 5.5 (5.0-9.0); Specific Gravity - Urine 1.015 (1.005-1.025); Urine Blood Negative (Negative); Urine Ketones Negative (Negative); Urine Protein Negative (Neg-Trace)
[2024-07-30 11:20] LABS: Alanine Aminotransferase 39 U/L (0-40); Albumin Level 3.8 g/dL (3.5-5.0); Alkaline Phosphatase 80 U/L (39-117); Anion Gap 10 (12-20); Aspartate Amino Transferase 50 U/L (5-37); Bilirubin Total 0.7 mg/dL (0.0-1.0); Blood Urea Nitrogen 24 mg/dL (9-16); Calcium 9.3 mg/dL (8.4-10.2); Carbon Dioxide 27 mmol/L (22-29); Chloride 108 mmol/L (96-108); Cholesterol 162 mg/dL (<200); Estimated Glomerular Filt Rate > 60; Glucose Fasting 80 mg/dL (60-99); HDL Cholesterol 74 mg/dL (>40); LDL Cholesterol Calculated 74 mg/dL (<100); Potassium 4.7 mmol/L (3.3-5.1); Sodium 140 mmol/L (135-145); Triglycerides 70 mg/dL (<150)
[2024-07-30 11:22] LABS: B Type Natriuretic Peptide 156 pg/mL (<100)
[2024-07-30 11:24] LABS: Free T4 (Free Thyroxine) 1.51 ng/dL (0.71-1.85); Thyroid Stimulating Hormone 1.14 uIU/mL (0.32-4.0); Vitamin D 25-OH Total 25.5 ng/mL (>30)
[2024-07-30 11:40] LABS: Folate 9.4 ng/mL (> or = 4.0); Vitamin B12 396 pg/mL (200-900)
== END 2024-07-30 09:30 | disposition home or self-care (01) ==
LOC: HO.XRAY 09:29
PROVIDERS: PCP Internal Medicine; Visit Provider Internal Medicine
DX: R06.00 Dyspnea, unspecified (principal); E53.8 Deficiency of other specified B group vitamins; E55.9 Vitamin D deficiency, unspecified; I50.9 Heart failure, unspecified; R30.0 Dysuria; E03.9 Hypothyroidism, unspecified; D64.9 Anemia, unspecified; E78.00 Pure hypercholesterolemia, unspecified
CPT/HCPCS: 36415; 71046; 80053; 80061; 81003; 82306; 82607; 82746; 83880; 84439; 84443; 85025

== ENCOUNTER → 2024-07-30 09:52 | Outpatient (BNV) | payer MEDICARE, SELFPAY | PROVIDERS: PCP Internal Medicine; Visit Provider Radiology Diagnostic Radiology | DX: R06.00 Dyspnea, unspecified (principal) | CPT/HCPCS: 71046 ==

== ENCOUNTER 2024-08-19 08:25 | Outpatient (AMB) | payer MEDICARE, SELFPAY ==
--- NOTE | 2024-08-19 08:28 | MHC.OFFVIS ---
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 He is seen for the following urologic conditions - recurrent prostatitis - lower urinary tract symptoms - erectile dysfunction PVR 30 cc UA clear Tamsulosin monotherapy Would prefer to avoid finasteride due to side effects Six-month follow-up PVR and UA Get medications through [facility] May 2021 had episode of prostatitis with 300 cc retention Does have mild hypospadias Recurrent prostatitis Seen in hospital in November for episode of prostatitis On those occasions he has become septic quickly with minimal prodrome BPH longstanding Prior TURP with Dr. Turcios when aged approximately 67 Current therapy combination Lower urinary tract symptoms Improvement on combination therapy - finasteride with tamsulosin Still with occasional nocturia Prior traumatic office cystoscopies PSA 06/17 1.99, 02/15 1.0 Erectile dysfunction Declining response to 50 mg sildenafil Increased to 100mg Trial daily tadalafil 5 mg - ineffective [facility] Medical History Pure hypercholesterolemia Cervical disc disease Essential hypertension (HFpEF) heart failure with preserved ejection fraction Sick sinus syndrome Acquired hypothyroidism Diastolic dysfunction Retention of urine Angioedema Acute bacterial prostatitis Prostatitis Hearing aid worn Atrial fibrillation Pulmonary nodules Hyperkalemia Overweight (BMI 25.0-29.9) Vitamin D deficiency Vitamin B12 deficiency Chronic kidney disease, stage II (mild) Chronic gastritis without bleeding Sinus bradycardia Right bundle branch block (RBBB) determined by electrocardiography Hyperlipidemia HTN (hypertension) History of cardiomyopathy History of congestive heart failure Paroxysmal atrial fibrillation CAD (coronary artery disease) On amiodarone therapy Surgical History Hx of ventral hernia repair Hx of hand surgery History of prostate surgery Hx of colostomy History of colon resection Hx of knee surgery Hx of colonoscopy Hx of endoscopy History of radiofrequency ablation procedure for cardiac arrhythmia History of cardioversion Family History Father No problems noted. Mother CVD (cardiovascular disease) CHF (congestive heart failure) Social History Household Members: Spouse Housing: House Do you presently have visiting nurse or other home services: Yes Alcohol intake: current Alcohol intake frequency: holidays/special occasions only Alcohol type: wine Comment: pt refuses bed alarm Patient Tobacco Use Status: Never used Tobacco e-Cigarette/Vaping Use: Never Used Second Hand Smoke Exposure: No Advance Directives Date on File: 04/27/08 service: Yes Current occupational status: retired Cognitive needs: No Hearing needs: Yes Vision needs: Yes Review of Systems Const Denies chills and Denies fever(s) Card Reports no additional complaints and Denies syncope Resp Denies cough GI Denies abdominal pain and Denies heartburn Reports as per HPI and Denies change in libido Neuro Denies syncope Psych Denies change in libido Endo Denies change in libido Physical Exam Const General: cooperative, healthy appearing, comfortable and no acute distress Orientation/consciousness: patient oriented x3 HEENT Face and sinus: Yes normal facial exam Mouth: moist mucous membranes Neck Neck: Yes normal visual inspection, Yes full ROM and Yes trachea midline Chest Chest palpation & inspection: normal inspection of the chest Resp Effort & Inspection: normal respiratory effort, able to speak in complete sentences and no respiratory distress GI Inspection: Yes normal to inspection Back/Spine/Pelvis Cervical Spine: normal cervical lordosis Thoracic/Lumbar Spine: thoracic and lumbar spine normal to inspection Skin General skin exam: no rashes or lesions noted Neuro General: patient oriented x3, gait normal, tone normal and moves all extremities Extrem General: Yes normal to inspection and Yes capillary refill normal Office Procedures Post Void Residual Post Residual Void Post Void Residual (PVR): 29 [id number] Void Residual by ultrasound Results AMB Urinalysis, Automated UA Leukoctes 0 Tsering/uL Last Edit by BLAIR Clark on 08/19/24 09:02 UA Nitrite Negative Last Edit by BLAIR Clark on 08/19/24 09:02 UA Urobilinogen 3.5 mg/dL Last Edit by BLAIR Clark on 08/19/24 09:02 UA Protein 0 mg/dL Last Edit by BLAIR Clark on 08/19/24 09:02 UA pH 6.0 Last Edit by BLAIR Clark on 08/19/24 09:02 UA Blood 0 Nixon/uL Last Edit by BLAIR Clark on 08/19/24 09:02 UA Specific Cataldo 1.015 Last Edit by BLAIR Clark on 08/19/24 09:02 UA Ketone Negative Last Edit by BLAIR Clark on 08/19/24 09:02 UA Bilirubin 0 mg/dL Last Edit by BLAIR Clark on 08/19/24 09:02 UA Glucose 0 mg/dL Last Edit by BLAIR Clark on 08/19/24 09:02 Assessment & Plan Assessment & Plan (1) Hypospadias: Code(s): Q54.9 - Hypospadias, unspecified Category: Medical (2) BPH w urinary obs/LUTS: Code(s): N40.1 - Benign prostatic hyperplasia with lower urinary tract symptoms; N13.8 - Other obstructive and reflux uropathy Category: Medical (3) Erectile dysfunction: Code(s): N52.9 - Male erectile dysfunction, unspecified Category: Medical Qualifiers: Erectile dysfunction type: vasculogenic Vasculogenic erectile dysfunction 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 While every effort has been made to ensure accuracy pin drafting machine tender errors may have been included. Imaging studies, laboratory and physical exam results were discussed and reviewed in detail. No major barriers to patient understanding were identified. An opportunity to ask questions regarding the treatment plan was provided. All questions were answered. The patient expressed understanding and agreement with the above treatment plan. The patient is aware they should contact our office by phone for worsening of their current condition or the appearance of new urologic symptoms. Compliance is encouraged with any medications and followup testing that is ordered. It is a privilege to participate in the urologic care of your patient. If you have any questions or concerns regarding treatment for the above conditions, or other urologic issues, please do not hesitate to contact me. The office telephone contact is [phone]. 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
== END 2024-08-19 09:15 | disposition home or self-care (01) ==
LOC: HO.HUSH 08:26
PROVIDERS: PCP Internal Medicine; Visit Provider Urology
DX: Q54.9 Hypospadias, unspecified (principal); N40.1 Benign prostatic hyperplasia with lower urinary tract symptoms; N13.8 Other obstructive and reflux uropathy; N52.01 Erectile dysfunction due to arterial insufficiency; Z13.9 Encounter for screening, unspecified
CPT/HCPCS: 99213; G2211

== ENCOUNTER → 2024-08-19 08:25 | Outpatient (BNVA) | payer MEDICARE, SELFPAY | PROVIDERS: PCP Internal Medicine; Visit Provider Urology | DX: I48.0 Paroxysmal atrial fibrillation (principal); I13.0 Hypertensive heart and chronic kidney disease with heart failure and stage 1 through stage 4 chronic kidney disease, or unspecified chronic kidney disease; I50.32 Chronic diastolic (congestive) heart failure; N18.2 Chronic kidney disease, stage 2 (mild); R06.00 Dyspnea, unspecified; E78.00 Pure hypercholesterolemia, unspecified; E03.9 Hypothyroidism, unspecified; K29.50 Unspecified chronic gastritis without bleeding; M50.90 Cervical disc disorder, unspecified, unspecified cervical region; M51.360 Other intervertebral disc degeneration, lumbar region with discogenic back pain only; M16.0 Bilateral primary osteoarthritis of hip; E53.8 Deficiency of other specified B group vitamins; E55.9 Vitamin D deficiency, unspecified; N40.1 Benign prostatic hyperplasia with lower urinary tract symptoms; N13.8 Other obstructive and reflux uropathy; E66.3 Overweight; Q54.9 Hypospadias, unspecified; N52.01 Erectile dysfunction due to arterial insufficiency | CPT/HCPCS: 51798; 81003; 96127; 99212 ==

== ENCOUNTER 2024-08-19 09:26 | Outpatient (AMB) | payer MEDICARE, SELFPAY ==
[2024-08-19 09:59] VITALS: BP 136/62; PULSE 56; O2SAT 95; BMI 28.3
--- NOTE | 2024-08-19 09:59 | A.OFFPC_ITS ---
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 Required: No Accompanied by: Self / Same As Patient Allergies flores [cherries] Allergy (Severe, Verified 08/19/24 10:12) Anaphylaxis amoxicillin [Augmentin] Allergy (Unknown, Verified 08/19/24 10:12) Unknown clavulanic acid [Augmentin] Allergy (Unknown, Verified 08/19/24 10:12) unknown empagliflozin [From Jardiance] Adverse Reaction (Intermediate, Verified 08/19/24 10:38) recurrent bladder spasms and dysuria Medication List - Last Reconciled 08/19/24 by Prem Green MD amiodarone 200 mg PO DAILY 90 days amlodipine 10 mg PO DAILY apixaban (Eliquis) 5 mg PO BID atorvastatin 20 mg PO BEDTIME finasteride 5 mg PO DAILY furosemide 20 mg PO DAILY levothyroxine 75 mcg PO DAILY 90 days omeprazole 20 mg PO DAILY tamsulosin 0.4 mg PO BEDTIME 30 days Tobacco use date assessed: 08/19/24 Fall risk assessment: No Falls in past year Last assessed Fall Risk: 08/19/24 Dental Screening Dental Screen Date: 08/19/24 Did you have a dental visit in the last 12 months?: Yes Did you have a dental problem in the last 6 months where you did not have access to dental care?: No Was dental information given to patient?: Patient has dentist HPI 6 Month F/U HPI Details Patient comes in today for his follow up visit States that he feels okay He denies any headaches or dizziness Denies any chest pains, still has some DOCKERY but these are mostly mild and often clears up quickly with some rest States that he still goes to the gym to exercise/work out regularly for an hour and a half at a time and is planning to start playing golf again soon He saw an dump truck driver off highway at [facility] a couple of months ago for consultation regarding possible pacemaker insertion but he decided to put this off for now and will reconsider this later on if his symptoms progress No nausea/vomiting, no abdominal pain No change in bowel habits noted He had his follow up labs done a few weeks ago - to discuss his results [facility] Medical History (Updated 08/19/24 @ 10:47 by Prem Green MD) Primary osteoarthritis of both hips Lumbar degenerative disc disease Pure hypercholesterolemia Cervical disc disease Essential hypertension (HFpEF) heart failure with preserved ejection fraction Sick sinus syndrome Acquired hypothyroidism Diastolic dysfunction Retention of urine Angioedema Acute bacterial prostatitis Prostatitis Hearing aid worn Atrial fibrillation Pulmonary nodules Hyperkalemia Overweight (BMI 25.0-29.9) Vitamin D deficiency Vitamin B12 deficiency Chronic kidney disease, stage II (mild) Chronic gastritis without bleeding Sinus bradycardia Right bundle branch block (RBBB) determined by electrocardiography Hyperlipidemia HTN (hypertension) History of cardiomyopathy History of congestive heart failure Paroxysmal atrial fibrillation CAD (coronary artery disease) On amiodarone therapy Surgical History Hx of ventral hernia repair Hx of hand surgery History of prostate surgery Hx of colostomy History of colon resection Hx of knee surgery Hx of colonoscopy Hx of endoscopy History of radiofrequency ablation procedure for cardiac arrhythmia History of cardioversion Family History Father No problems noted. Mother CVD (cardiovascular disease) CHF (congestive heart failure) Social History Household Members: Spouse Housing: House Do you presently have visiting nurse or other home services: Yes Alcohol intake: current Alcohol intake frequency: holidays/special occasions only Alcohol type: wine Comment: pt refuses bed alarm Patient Tobacco Use Status: Never used Tobacco e-Cigarette/Vaping Use: Never Used Second Hand Smoke Exposure: No Advance Directives Date on File: 04/27/08 service: Yes Current occupational status: retired Cognitive needs: No Hearing needs: Yes Vision needs: Yes Questionnaire PHQ-9 Over the last 2 weeks, how often have you been bothered by any of the following problems? 1. Little interest or pleasure in doing things: not at all 2. Feeling down, depressed, or hopeless: not at all 3. Trouble falling or staying asleep, or sleeping too much: not at all 4. Feeling tired or having little energy: not at all 5. Poor appetite or overeating: not at all 6. Feeling bad about yourself - or that you are a failure or have let yourself or your family down: not at all 7. Trouble concentrating on things, such as reading the newspaper or watching television: not at all 8. Moving or speaking so slowly that other people could have noticed. Or the opposite - being so fidgety or restless that you have been moving around a lot more than usual: not at all 9. Thoughts that you would be better off or of hurting yourself in some way: not at all Total score: 0 Depression Screening Interpretation: Negative Depression Screening Done: Yes 77100 - PHQ-9 Billing: Yes Source: Developed by Drs. Lalo Trevino, Rosalina Faith, Tong Eaton and colleagues, with an educational mariah from [employer]. Thrive Questionnaire Date Thrive assessed: 08/19/24 I am a: Patient What is your living situation today?: I have a steady place to live Within the past 12 months, did the food you bought not last and you didn't have the money to get more?: Never true Within the past 12 months, did you worry whether your food would run out before you got money to buy more?: Never true Do you have trouble paying for medicines?: No Do you have trouble getting transportation to medical appointments?: No Do you have trouble paying your heating and electricity bill?: No Do you have trouble taking care of your child, family member or friend?: No Do you have trouble with day-to-day activities such as bathing, preparing meals, shopping, managing finances, etc.?: No Are you currently unemployed and looking for a job?: No Are you interested in more education?: No Please select the resources that you would like help with: None Currently or been in a relationship where the following occur: No concerns reported THRIVE Score: 0 AUDIT C Alcohol Use Questionnaire (AUDIT-C) 1. How often do you have a drink containing alcohol?: Monthly or less 2. How many drinks containing alcohol do you have on a typical day when you are drinking?: 1 or 2 3. How often do you have six or more drinks on one occasion?: Never Total Score: 1 Score Reviewed/Action Taken: Yes KENNY-7 AMB Questionnaire KENNY-7 Date KENNY - 7 assessed: 08/19/24 Feeling nervous, anxious, or on edge: 0 = Not at all Not being able to stop or control worryin = Not at all Worrying too much about different things: 0 = Not at all Trouble relaxin = Not at all Being so restless that it is hard to sit still: 0 = Not at all Becoming easily annoyed or irritable: 0 = Not at all Feeling afraid as if something awful might happen: 0 = Not at all Total KENNY-7 score (0-4 normal; 5-9 mild; 10-14 moderate; 15-21 severe): 0 Source: Developed by Drs. Lalo Trevino, Rosalina Faith, Tong Eaton and colleagues, with an educational mariah from [employer]. KENNY-7 Assessment Billing KENNY-7 Assessment Tool: KENNY-7 Assessment 06038 Review of Systems Const Denies chills, Denies fatigue, Denies fever(s) and Denies headache(s) ENT Denies dysphagia, Denies dizziness, Denies otalgia, Denies headache(s), Denies neck pain, Denies odynophagia and Denies sore throat Card Denies chest pain, Reports irregular heart rhythm (see HPI), Denies palpitations and Reports dyspnea on exertion (mild) Resp Denies chest congestion, Denies cough and Reports dyspnea on exertion (mild) GI Denies abdominal pain, Denies constipation, Denies dysphagia, Denies heartburn, Denies diarrhea, Denies nausea, Denies odynophagia and Denies vomiting Denies dysuria, Denies nocturia, Denies urinary frequency and Denies urinary urgency Musc Denies back pain, Denies neck pain and Reports stiffness Skin/Breast Denies rash Neuro Denies dizziness and Denies headache(s) Endo Denies fatigue and Denies palpitations Physical exam (Primary Care) Vital Signs: Last Vital Signs Pulse 56 08/19/24 09:59 BP 136/62 08/19/24 09:59 Pulse Ox 95 08/19/24 09:59 Oxygen Delivery Method Room Air 08/19/24 09:59 BMI result Body Mass Index 28.3 Tobacco/Smoking Status: Tobacco use Status Tobacco use date assessed 08/19/24 08/19/24 10:04 Patient Tobacco Use Status Never used Tobacco 08/19/24 10:04 e-Cigarette/Vaping Use Never Used 08/19/24 10:04 PHQ-9: PHQ-9 Score PHQ-9: Total score 0 08/19/24 15:53 Depression Screening Interpretation: Negative Thrive Assessment: Date of Thrive Assessment Date Thrive assessed 08/19/24 08/19/24 10:04 Currently or been in a relationship where the following occur: No concerns reported Const General: no acute distress and alert HENMT Ears: TM's normal bilaterally and EAC's normal Throat: Yes posterior oropharynx normal and Yes tonsils normal (no TP congestion noted) Neck Neck: Yes supple and No lymphadenopathy Thyroid: Thyroid normal Resp Auscultation: clear to auscultation bilaterally, no rales and no wheezes Cardio Rate: bradycardic Rhythm: regular rhythm Heart sounds: no murmurs GI Palpation (GI): Soft to palpation and nontender Auscultation: normal bowel sounds General: Yes no CVA tenderness Back/Spine/Pelvis Back: no CVA tenderness Cervical Spine: Cervical spine tenderness (mild) Thoracic/Lumbar Spine: lumbar spinal tenderness Skin Rashes: no rashes Extrem General: Yes no clubbing, cyanosis or edema Results AMB Urinalysis, Automated UA Leukoctes 0 Tsering/uL Last Edit by BLAIR Clark on 08/19/24 09:02 UA Nitrite Negative Last Edit by BLAIR Clark on 08/19/24 09:02 UA Urobilinogen 3.5 mg/dL Last Edit by BLAIR Clark on 08/19/24 09:0 2 UA Protein 0 mg/dL Last Edit by BLAIR Clark on 08/19/24 09:02 UA pH 6.0 Last Edit by BLAIR Clark on 08/19/24 09:02 UA Blood 0 Nixon/uL Last Edit by BLAIR Clark on 08/19/24 09:02 UA Specific [place] 1.015 Last Edit by BLAIR Clark on 08/19/24 09: 02 UA Ketone Negative Last Edit by BLAIR Clark on 08/19/24 09:02 UA Bilirubin 0 mg/dL Last Edit by BLAIR Clark on 08/19/24 09:02 UA Glucose 0 mg/dL Last Edit by BLAIR Clark on 08/19/24 09:02 Results Reviewed Results Reviewed: Laboratory Tests 07/30/24 07/30/24 08/19/24 09:41 09:45 09:01 WBC 8.2 Hgb 14.3 Hct 43.3 Plt Count 252 Sodium 140 Potassium 4.7 Creatinine 1.08 Estimated GFR > 60 Fasting Glucose 80 Calcium 9.3 AST 50 H ALT 39 B-Natriuretic Peptide 156 H Triglycerides 70 Cholesterol 162 LDL Cholesterol, Calc 74 HDL Cholesterol 74 Vitamin B12 396 25-OH Vitamin D Total 25.5 L TSH 1.14 Free T4 1.51 Urine pH 5.5 Urine pH (Auto) 6.0 Ur Specific [place] 1.015 Urine Protein Negative Urine Glucose (UA) Negative Urine Blood Negative Urine Nitrite Negative Ur Leukocyte Esterase Negative Coding Level of Care Code Est Pt Level 4 (64710) Complex EM visit Add On G2211 Diagnoses Paroxysmal atrial fibrillation I48.0 Chronic heart failure with preserved ejection fraction I50.32 Heart failure chronicity: chronic Essential hypertension I10 Pure hypercholesterolemia E78.00 Acquired hypothyroidism E03.9 Chronic kidney disease, stage II (mild) N18.2 Chronic gastritis without bleeding, unspecified gastritis type K29.50 Gastritis type: unspecified gastritis Cervical disc disease M50.90 Degeneration of intervertebral disc of lumbar region with discogenic back pain M51.360 Disc-related pain type: discogenic back pain only Primary osteoarthritis of both hips M16.0 Vitamin B12 deficiency E53.8 Vitamin D deficiency E55.9 BPH w urinary obs/LUTS N40.1; N13.8 Overweight (BMI 25.0-29.9) E66.3 Additional Codes KENNY-7 Assessment Billing - KENNY-7 Assessment Tool: KENNY-7 Assessment 10511 ([id number]) PHQ-9 - 29682 - PHQ-9 Billing: Yes ([id number]) Assessment & Plan Assessment & Plan (1) Paroxysmal atrial fibrillation: Comment: Myocardial perfusion study done on 06/13/2020 came out normal Echocardiogram done in April 2020 also came out normal, with normal left ventricular systolic function and ejection fraction estimated between 65-70%. 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 and this will be monitored closely Code(s): I48.0 - Paroxysmal atrial fibrillation Category: Medical Plan: Patient currently remains in sinus rhythm, although he still reports occasional episodes of atrial fibrillation wherein he has to take extra doses of Amiodarone until his heart rate eventually settles back down Continue Amiodarone 200 mg QD - he has been doing well overall on rhythm control approach for years but as he has been experiencing some increasing symptoms of DOCKERY over the past year or so, was referred by cardiology for consideration for pacemaker placement He was seen by dump truck driver off highway (Dr. Bah) back in May 2024 and was recommended pacemaker placement but patient decided to hold off on this for now as he feels that he is still active and does not think that his QOL is significantly impacted at this time Continue Eliquis 5 mg BID for thromboembolism prophylaxis Follow up with cardiology as scheduled (2) (HFpEF) heart failure with preserved ejection fraction: Code(s): I50.30 - Unspecified diastolic (congestive) heart failure Category: Medical Qualifiers: Heart failure chronicity: chronic Qualified Code(s): I50.32 - Chronic diastolic (congestive) heart failure Plan: He has been advised by cardiology in the past that this is likely the reason for his recurrent DOCKERY, which he feels has been gradually increasing lately Reinforced fluid restriction Continue Furosemide 20 mg QD He was also started on Jardiance 10 mg QD by cardiology last year to help reduce his risk of hospitalization but he could not tolerate the medication (was experiencing frequent painful bladder spasms and recurrent burning sensation on urination while on Jardiance) and this was eventually discontinued Cardiology has recommended that he undergo a treadmill stress test to assess for chronotropic competence and if he fails his stress test, they will then try to pursue dual-chamber pacemaker insertion He has also been referred to [facility] for EPS evaluation - he was seen for this in May 2024 and he decided to hold off on pacemaker placement at this time His stress test done in March 2024 came out normal, with patient achieving 79% of Mendez protocol and without EKG changes meeting criteria for ischemia Follow up with cardiology as scheduled (3) Essential hypertension: Code(s): I10 - Essential (primary) hypertension Category: Medical Plan: Reinforced low sodium diet - goal is systolic BP of at least 140 to 150 mm or less Continue Amlodipine 10 mg QD Patient is reminded to continue monitoring his blood pressure regularly and to call if his systolic BP stays elevated at more than 150 mm consistently (4) Pure hypercholesterolemia: Code(s): E78.00 - Pure hypercholesterolemia, unspecified Category: Medical Plan: Results of his labs done a few weeks ago reviewed and discussed with patient Reinforced low cholesterol diet - have advised patient that his cholesterol levels are at goal on his recent labs Continue Atorvastatin 20 mg QD Will recheck his labs and fasting lipids in 6 months for follow-up (5) Acquired hypothyroidism: Code(s): E03.9 - Hypothyroidism, unspecified Category: Medical Plan: 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 Bernal in July 2018 - still has chronic active gastritis but H pylori was reportedly negative Repeat EGD in March 2022 revealed (+) Castillo's esophagitis Code(s): K29.50 - Unspecified chronic gastritis without bleeding Category: Medical Qualifiers: Gastritis type: unspecified gastritis Qualified Code(s): K29.50 - Unspecified chronic gastritis without bleeding Plan: Most recent EGD in March 2022 revealed (+) Castillo's esophagitis Dietary restrictions reinforced Continue Omeprazole 20 mg QD Follow up with GI as scheduled for continuing surveillance (8) Cervical disc disease: Code(s): M50.90 - Cervical disc disorder, unspecified, unspecified cervical region Category: Medical Plan: Cervical spine x-rays done back in 08/2021 revealed (+) moderate hypertrophic arthropathy right C3-C4, C4-C5, C5-C6 and C6-C7 facet joints (9) Lumbar degenerative disc disease: Code(s): M51.369 - Other intervertebral disc degeneration, lumbar region without mention of lumbar back pain or lower extremity pain Category: Medical Qualifiers: Disc-related pain type: discogenic back pain only Qualified Code(s): M51.360 - Other intervertebral disc degeneration, lumbar region with discogenic back pain only Plan: Reinforced activity and weight-lifting restrictions to avoid aggravating her low back pain Lumbar spine x-rays done back in 2013 revealed (+) severe multilevel degenerative disc disease and facet arthritis Patient states that he has been trying to manage his chronic neck pain and low back pain over the years but states that his neck has been bothering him a lot more than before lately (10) Primary osteoarthritis of both hips: Code(s): M16.0 - Bilateral primary osteoarthritis of hip Category: Medical Plan: Hip x-rays done back in 09/2020 revealed (+) OA changes in both hips (11) Vitamin B12 deficiency: Code(s): E53.8 - Deficiency of other specified B group vitamins Category: Medical Plan: Corrected - his Vitamin B12 level is normal on his recent labs (12) Vitamin D deficiency: Code(s): E55.9 - Vitamin D deficiency, unspecified Category: Medical Plan: He is advised that his Vitamin D level is still low on his recent labs and has declined slightly from previous Continue Vitamin D3 2000 units QD (13) BPH w urinary obs/LUTS: Code(s): N40.1 - Benign prostatic hyperplasia with lower urinary tract symptoms; N13.8 - Other obstructive and reflux uropathy Category: Medical Plan: Continue Tamsulosin 0.4 mg Q HS and Finasteride 5 mg QD Follow up with urology as scheduled (14) Overweight (BMI 25.0-29.9): Code(s): E66.3 - Overweight Category: Medical Plan: Reinforced diet/exercise as tolerated/lose weight Plan Follow up in 6 months Orders: Orders Free T4 (Free Thyroxine) 6 Months E03.9 - Hypothyroidism, unspecified UA CC w/rflx Micro + Cult 6 Months R30.0 - Dysuria Vitamin D 25-OH Total 6 Months E55.9 - Vitamin D deficiency, unspecified Complete Blood Count Auto Diff 6 Months D64.9 - Anemia, unspecified Comprehensive [place]. Panel Fast 6 Months E78.00 - Pure hypercholesterolemia, unspecified Lipid Panel 6 Months E78.00 - Pure hypercholesterolemia, unspecified Thyroid Stimulating Hormone 6 Months E03.9 - Hypothyroidism, unspecified
== END 2024-08-19 10:36 | disposition home or self-care (01) ==
LOC: HO.HMCH 09:27
PROVIDERS: PCP Internal Medicine; Visit Provider Internal Medicine
DX: I48.0 Paroxysmal atrial fibrillation (principal); I50.32 Chronic diastolic (congestive) heart failure; I12.9 Hypertensive chronic kidney disease with stage 1 through stage 4 chronic kidney disease, or unspecified chronic kidney disease; E78.00 Pure hypercholesterolemia, unspecified; E03.9 Hypothyroidism, unspecified; N18.2 Chronic kidney disease, stage 2 (mild); K29.50 Unspecified chronic gastritis without bleeding; M50.90 Cervical disc disorder, unspecified, unspecified cervical region; M51.360 Other intervertebral disc degeneration, lumbar region with discogenic back pain only; M16.0 Bilateral primary osteoarthritis of hip; E53.8 Deficiency of other specified B group vitamins; E55.9 Vitamin D deficiency, unspecified; N40.1 Benign prostatic hyperplasia with lower urinary tract symptoms; N13.8 Other obstructive and reflux uropathy; E66.3 Overweight

== ENCOUNTER 2024-12-08 08:30 | Outpatient (AMB) | payer MEDICARE, SELFPAY ==
--- OUTSIDE RECORDS SUMMARY | 2024-12-08 03:33 | XMS_ITS | Continuity of Care Document ---
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 It does not include entries that were removed or entered in error. Problem Status Onset Date Problem Type Date of Resolution Comments Source Chronic prostatitis Active Condition [facility] Diastolic heart failure Active Condition [facility] Essential hypertension (SNOMED CT 70320956) Active Condition [facility] Exposure to potentially hazardous substance Active Condition Aug 06, 2023 Entered By: RAVEN MADRID EN A Comment: Connect Snomed Code to ICD 10 Code refer to note dated 02/19/23 [facility] Gastroesophageal reflux disease Active Condition [facility] History of male erectile disorder (SNOMED CT 324991537) Active Condition [facility] Hypercholesterolemia (SNOMED CT 52679341) Active Condition [facility] Hypothyroidism Active Condition [facility] Long-term current use of anticoagulant Active Condition [facility] Low back pain Active Condition [facility] Paroxysmal atrial fibrillation (SNOMED CT 340808870) Active Condition Mar 19, 2024 Entered By: FIDENCIO EDWARDS Comment: s/p ablation x 2, now on [id number] Entered By: 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.D [facility] Diagnosis: ICD-10-CM Z46.1 Encounter for fitting and adjustment of hearing aid Active Diagnosis [facility] Diagnosis: ICD-10-CM H90.3 Sensorineural hearing loss, bilateral Active Diagnosis [facility] Diagnosis: ICD-10-CM Z77.29 Contact with and exposure to other hazardous substances Active Diagnosis [facility] Diagnosis: ICD-10-CM Z04.89 Encounter for examination and observation for oth reasons Active Diagnosis [facility] Diagnosis: ICD-10-CM Z46.0 Encounter for fit/adjst of spectacles and contact lenses Active Diagnosis [facility] Diagnosis: ICD-10-CM Z96.1 Presence of intraocular lens Active Diagnosis [facility] Diagnosis: ICD-10-CM E03.9 Hypothyroidism, unspecified Active Diagnosis [facility] Diagnosis: ICD-10-CM I48.0 Paroxysmal atrial fibrillation Active Diagnosis [facility] Diagnosis: ICD-10-CM 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 Medication Details Route Status Patient Instructions Prescription Expires Prescription Number Last Dispense Date Ordering Provider Order Date Order Qty Source AMIODARONE HCL (PACERONE) 200MG TAB TAKE ONE TABLET BY MOUTH QD ORAL ACTIVE RAISA NIETO AMMED [facility]AWED 2019 [facility] AMLODIPINE BESYLATE 10MG TAB TAKE ONE TABLET BY MOUTH ONCE DAILY ORAL ACTIVE FURCOLO,T PARKER 2023 [facility] APIXABAN 5MG TAB TAKE ONE TABLET BY MOUTH TWICE DAILY ORAL ACTIVE 08/31/2025 [id number] 5 FURCOLO,T PARKER 2024 180 [facility] APIXABAN 5MG TAB TAKE ONE TABLET BY MOUTH TWICE DAILY ORAL DISCONT INUED 08/11/2024 [id number] 5 RAISA NIETO AMMED JAWED 2023 180 [facility] ATORVASTATI N CA 20MG TAB TAKE ONE TABLET BY MOUTH EVERY DAY FOR CHOLESTE ROL ORAL ACTIVE 08/31/2025 [id number] 5 FURCOLO,T PARKER 2024 90 [facility] ATORVASTATI N CA 20MG TAB TAKE ONE TABLET BY MOUTH EVERY DAY FOR CHOLESTE ROL ORAL DISCONT INUED 08/11/2024 [id number] 5 [facility] JAWED 2023 90 [facility] FINASTERIDE 5MG TAB TAKE ONE TABLET BY MOUTH ONCE DAILY FOR PROSTATE ORAL DISCONT INUED BY PROVIDE R 08/31/2025 [id number] 5 FURCOLO,T PARKER 2024 90 [facility] FINASTERIDE 5MG TAB TAKE ONE TABLET BY MOUTH ONCE DAILY FOR PROSTATE ORAL DISCONT INUED 08/11/2024 [id number] [facility] JAWED 2023 90 [facility] FUROSEMIDE 20MG TAB TAKE ONE TABLET BY MOUTH ORAL ACTIVE FURCOLO,T PARKER 2023 [facility] LEVOTHYROXI NE NA 75MCG TAB TAKE ONE TABLET BY MOUTH EVERY MORNING 30 MINUTES BEFORE BREAKFAS T FOR THYROID TAKE ON AN EMPTY STOMACH WITH A FULL GLASS OF WATER ORAL ACTIVE 03/20/2025 [id number] 5 FURCOLO,T PARKER 2023 90 [facility] LEVOTHYROXI NE NA 75MCG TAB (SYNTHROID) TAKE ONE TABLET BY MOUTH EVERY MORNING 30 MINUTES BEFORE BREAKFAS T FOR THYROID TAKE ON AN EMPTY STOMACH WITH A FULL GLASS OF WATER ORAL DISCONT INUED 04/07/2024 [id number] [facility]22 [facility] OMEPRAZOLE 20MG CAP,EC TAKE ONE CAPSULE BY MOUTH EVERY MORNING 30 MINUTES BEFORE BREAKFAS T FOR STOMACH ULCER ORAL HOLD 09/15/2025 [id number] FURCOLO,T PARKER 2024 90 [facility] OMEPRAZOLE 20MG CAP,EC TAKE TWO CAPSULES BY MOUTH EVERY MORNING 30 MINUTES BEFORE BREAKFAS T FOR STOMACH ULCER ORAL DISCONT INUED (EDIT) 08/31/2025 [id number] 5 FURCOLO,T PARKER 2024 180 [facility] OMEPRAZOLE 20MG CAP,EC TAKE TWO CAPSULES BY MOUTH EVERY MORNING 30 MINUTES BEFORE BREAKFAS T FOR STOMACH ULCER ORAL DISCONT INUED 08/11/2024 [id number] RAISA NIETO AMMED JAWED 2023 180 [facility] SILDENAFIL CITRATE 100MG TAB TAKE ONE TABLET BY MOUTH EVERY DAY NEEDED TAKE 1 HOUR PRIOR TO SEXUAL ACTIVITY ORAL ACTIVE 03/20/2025 [id number] 5 FURCOLO,T PARKER 2023 18 [facility] SILDENAFIL CITRATE 100MG TAB TAKE ONE TABLET BY MOUTH EVERY DAY NEEDED TAKE 1 HOUR PRIOR TO SEXUAL ACTIVITY ORAL DISCONT INUED 02/20/2024 [id number] 4 [facility] AMMED JAWED 2022 6 [facility] TAMSULOSIN HCL 0.4MG CAP TAKE ONE CAPSULE BY MOUTH ONCE DAILY ORAL ACTIVE 08/31/2025 [id number] 5 FURCOLO,T PARKER 2024 90 [facility] TAMSULOSIN HCL 0.4MG CAP TAKE ONE CAPSULE BY MOUTH ONCE DAILY ORAL DISCONT INUED 09/16/2024 [id number] 5 FURCOLO,T PARKER 2023 90 [facility] Allergies, Adverse Reactions, Alerts Combined list of allergies from Department of Defense and Veterans Affairs facilities. It does not include entries that were removed or entered in error. Substance Category Reaction Severity Reaction type Status Date Reported Comments Source AUGMENTIN Propensity to adverse reactions to drug (finding) Dyspnea active 3 [facility] CHERRIES Propensity to adverse reactions to substance (finding) Anaphylaxis active 3 [facility] LISINOPRIL Propensity to adverse reactions to drug (finding) Angioedema, Angioedema of tongue active 1 [facility] Immunizations Combined list of available immunizations from the Department of Defense and Veterans Affairs facilities. Immunization Series Date Given Administered By Site Reaction Lot Number CVX Code Drug Irrigation Teacher Status Comments Source INFLUENZA, UNSPECIFIED FORMULATION 2023 88 complet ed Completed Series, HISTORICA L INFORMATI ON - FROM OTHER REGISTRY, [facility] COVID-19 (MODERNA), MRNA, LNP-S, PF, 50 MCG/0.5 ML (AGES 12+ YEARS) 1 2022 JACI ADEN LEFT DELTO ID [id number] 312 complet ed [facility] INFLUENZA, HIGH-DOSE, QUADRIVALENT 2022 [place] [facility] RIGHT DELTO ID [id number] 197 complet ed Completed Series, [facility] COVID-19 (MODERNA), MRNA, LNP-S, BIVALENT BOOSTER, PF, 50 MCG/0.5 ML OR 25MCG/0.25 ML DOSE 1 2021 229 complet ed MOD; [id number]; 3 [facility] INFLUENZA VACCINE, QUADRIVALENT, ADJUVANTED 2021 205 complet ed [facility] INFLUENZA, UNSPECIFIED FORMULATION 2020 88 complet ed [facility] TD (ADULT), 5 LF TETANUS TOXOID, PRESERVATIVE FREE, ADSORBED 2020 113 complet ed [facility] COVID-19 (PFIZER), MRNA, LNP-S, PF, 30 MCG/0.3 ML DOSE 2 2020 208 complet ed [facility] COVID-19 (PFIZER), MRNA, LNP-S, PF, [...] YRS (HISTORICAL) 2012 88 complet ed Through [facility] - employee [facility] [...] Reference Range Date Interpretation Specimen Comments Source TSH THYROTROPIN [UNITS/VOLU ME] IN SERUM OR PLASMA BY DETECTION LIMIT <= 0.005 MIU/L 1.09 u[IU]/ mL 0.35 - 4.94 09/08 Specimen Type: SERUM No comment entered. Ordering Provider: KAUSHIK EDWARDS Report Released Date/Time: Mar 19, 2024 09:43 AM Reporting Lab: [facility] [place] [facility] [address] [facility] [address] Performing Lab: [facility] [place] [facility] [address] [facility] [address] [facility] LIPID PANEL FASTING CHOLESTEROL [MASS/VOLUM E] IN SERUM OR PLASMA 162 mg/dL 09/08 Specimen Type: SERUM No comment entered. Ordering Provider: KAUSHIK EDWARDS Report Released Date/Time: Mar 19, 2024 09:43 AM Reporting Lab: [facility] [place] [facility] [address] [facility] [address] Performing Lab: [facility] [place] [facility] [address] [facility] [address] [facility] LIPID PANEL FASTING TRIGLYCERID E [MASS/VOLUM E] IN SERUM OR PLASMA 63 mg/dL 0 - 150 09/08 Specimen Type: SERUM No comment entered. Ordering Provider: KAUSHIK EDWARDS Report Released Date/Time: Mar 19, 2024 09:43 AM Reporting Lab: [facility] [place] [facility] [address] [facility] [address] Performing Lab: [facility] [place] [facility] [address] [facility] [address] [facility] LIPID PANEL FASTING CHOLESTEROL IN LDL [MASS/VOLUM E] IN SERUM OR PLASMA BY CALCULATION 68 mg/dL 0 - 129 09/08 Specimen Type: SERUM No comment entered. Ordering Provider: KAUSHIK EDWARDS Report Released Date/Time: Mar 19, 2024 09:43 AM Reporting Lab: [facility] [place] [facility] [address] [facility] [address] Performing Lab: [facility] [place] [facility] [address] [facility] [address] [facility] [place] LIPID PANEL FASTING CHOLESTEROL .TOTAL/CHOL ESTEROL IN HDL [MASS RATIO] IN SERUM OR PLASMA 2.0 09/08 Specimen Type: SERUM No comment entered. Ordering Provider: FURCOLO,TIN A Report Released Date/Time: Mar 19, 2024 09:43 AM Reporting Lab: [facility] [place] [facility] [address] [facility] [address] Performing Lab: [facility] [place] [facility] [address] [facility] [address] [facility] [place] [facility] LIPID PANEL FASTING CHOLESTEROL IN HDL [MASS/VOLUM E] IN SERUM OR PLASMA 81 mg/dL 40 09/08 Specimen Type: SERUM No comment entered. Ordering Provider: KAUSHIK EDWARDS Report Released Date/Time: Mar 19, 2024 09:43 AM Reporting Lab: [facility] [address] [facility] [address] Performing Lab: [facility] [address] [facility] [address] [facility] LIVER FUNCTION PROTEIN [MASS/VOLUM E] IN SERUM OR PLASMA 6.6 g/dL 6.4 - 8.3 09/08 Specimen Type: SERUM No comment entered. Ordering Provider: KAUSHIK EDWARDS Report Released Date/Time: Mar 19, 2024 09:43 AM Reporting Lab: [facility] [address] [facility] [address] Performing Lab: [facility] [address] [facility] [address] [facility] LIVER FUNCTION ALBUMIN [MASS/VOLUM E] IN SERUM OR PLASMA BY BROMOCRESOL PURPLE (BCP) DYE BINDING METHOD 3.9 g/dL 3.2 - 4.6 09/08 Specimen Type: SERUM No comment entered. Ordering Provider: KAUSHIK EDWARDS Report Released Date/Time: Mar 19, 2024 09:43 AM Reporting Lab: [facility] [place] [facility] [address] [facility] [address] Performing Lab: [facility] [address] [facility] [address] [facility] [place] [facility] LIVER FUNCTION ALKALINE PHOSPHATASE [ENZYMATIC ACTIVITY/VO LUME] IN SERUM OR PLASMA 75 U/L 40 - 150 09/08 Specimen Type: SERUM No comment entered. Ordering Provider: KAUSHIK EDWARDS Report Released Date/Time: Mar 19, 2024 09:43 AM Reporting Lab: [facility] [place] [facility] [address] [facility] [address] Performing Lab: [facility] [place] [facility] [address] [facility] [address] [facility] LIVER FUNCTION ASPARTATE AMINOTRANSF ERASE [ENZYMATIC ACTIVITY/VO LUME] IN SERUM OR PLASMA BY WITH P-5'-P 36 U/L 5 - 34 09/08 H Specimen Type: SERUM No comment entered. Ordering Provider: KAUSHIK EDWARDS Report Released Date/Time: Mar 19, 2024 09:43 AM Reporting Lab: [facility] [place] [facility] [address] [facility] [address] Performing Lab: [facility] [place] [address] [address] [facility] [place] [facility] LIVER FUNCTION ALANINE AMINOTRANSF ERASE [ENZYMATIC ACTIVITY/VO LUME] IN SERUM OR PLASMA BY WITH P-5'-P 26 U/L 09/08 Specimen Type: SERUM No comment entered. Ordering Provider: KAUSHIK EDWARDS Report Released Date/Time: Mar 19, 2024 09:43 AM Reporting Lab: [facility] [place] [address] [address] Performing Lab: [facility] [place] [facility] [address] [facility] [address] [facility] LIVER FUNCTION BILIRUBIN.T OTAL [MASS/VOLUM E] IN SERUM OR PLASMA 0.9 mg/dL 0.2 - 1.2 09/08 Specimen Type: SERUM No comment entered. Ordering Provider: KAUSHIK EDWARDS Report Released Date/Time: Mar 19, 2024 09:43 AM Reporting Lab: [facility] [place] [address] [address] Performing Lab: [facility] [place] [address] [address] [facility] BASIC METABOLIC PANEL (fasting) UREA NITROGEN [MASS/VOLUM E] IN SERUM OR PLASMA 20 mg/dL 8 - 26 09/08 Specimen Type: SERUM No comment entered. Ordering Provider: KAUSHIK EDWARDS Report Released Date/Time: Mar 19, 2024 09:43 AM Reporting Lab: [facility] [address] Performing Lab: [facility]TR[facility] [address] [facility] BASIC METABOLIC PANEL (fasting) GLUCOSE [MASS/VOLUM E] IN SERUM OR PLASMA 94 mg/dL 65 - 100 09/08 Specimen Type: SERUM No comment entered. Ordering Provider: KAUSHIK EDWARDS Report Released Date/Time: Mar 19, 2024 09:43 AM Reporting Lab: [facility] [address] [address] Performing Lab: [facility]ITALTRN [facility] [address] [facility] BASIC METABOLIC PANEL (fasting) SODIUM [MOLES/VOLU ME] IN SERUM OR PLASMA 140 mmol/L 136 - 145 09/08 Specimen Type: SERUM No comment entered. Ordering Provider: KAUSHIK EDWARDS Report Released Date/Time: Mar 19, 2024 09:43 AM Reporting Lab: [facility]TR[facility] [address] Performing Lab: [facility] [address] [facility] BASIC METABOLIC PANEL (fasting) POTASSIUM [MOLES/VOLU ME] IN SERUM OR PLASMA 4.2 mmol/L 3.5 - 5.1 09/08 Specimen Type: SERUM No comment entered. Ordering Provider: KAUSHIK EDWARDS Report Released Date/Time: Mar 19, 2024 09:43 AM Reporting Lab: [facility]N [facility] [address] Performing Lab: [facility]ITALRW[facility]OSPITALTRN [facility]ITAL[facility] [address] [facility] [address] [facility] BASIC METABOLIC PANEL (fasting) CHLORIDE [MOLES/VOLU ME] IN SERUM OR PLASMA 106 mmol/L 98 - 107 09/08 Specimen Type: SERUM No comment entered. Ordering Provider: KAUSHIK EDWARDS Report Released Date/Time: Mar 19, 2024 09:43 AM Reporting Lab: [facility]OSPITALTRN [facility]ITAL[facility] [address] [facility] [address] Performing Lab: [facility]ITALRW[facility]OSPITALTRN [facility]ITALUSE[facility] [address] [facility] [address] [facility] BASIC METABOLIC PANEL (fasting) CARBON DIOXIDE, TOTAL [MOLES/VOLU ME] IN SERUM OR PLASMA 24 meq/L 23 - 31 09/08 Specimen Type: SERUM No comment entered. Ordering Provider: KAUSHIK EDWARDS Report Released Date/Time: Mar 19, 2024 09:43 AM Reporting Lab: [facility]OSPITALTRN [facility]ITAL[facility] [address] [facility] [address] Performing Lab: [facility]OSPITALTRN [facility]USE[address] [address] [facility] BASIC METABOLIC PANEL (fasting) CALCIUM [MASS/VOLUM E] IN SERUM OR PLASMA 9.2 mg/dL 8.8 - 10 09/08 Specimen Type: SERUM No comment entered. Ordering Provider: KAUSHIK EDWARDS Report Released Date/Time: Mar 19, 2024 09:43 AM Reporting Lab: [facility]ITALRW[facility]OSPITALTRN [facility]ITALUSEUNITED [facility] SERVICES [address] [facility] [address] Performing Lab: [facility]ITALRH[facility] INFIRMARYN [facility]ITALUSE[address] [address] [facility] BASIC METABOLIC PANEL (fasting) CREATININE [MASS/VOLUM E] IN SERUM OR PLASMA 1.33 mg/dL 0.72 - 1.25 09/08 H Specimen Type: SERUM No comment entered. Ordering Provider: KAUSHIK EDWARDS Report Released Date/Time: Mar 19, 2024 09:43 AM Reporting Lab: [facility] [place] [facility] [address] [facility] [address] Performing Lab: [facility] [place] [facility] [address] [facility] [address] [facility] [place] [facility] BASIC METABOLIC PANEL (fasting) GLOMERULAR FILTRATION RATE/1.73 SQ M.PREDICTED [VOLUME RATE/AREA] IN SERUM, PLASMA OR BLOOD BY CREATININE- BASED FORMULA (CKD-EPI 2020) 52 mL/min 60 09/08 L Specimen Type: SERUM No comment entered. Ordering Provider: KAUSHIK EDWARDS Report Released Date/Time: Mar 19, 2024 09:43 AM Reporting Lab: [facility] [place] [facility] [address] [facility] [address] Performing Lab: [facility] [place] [address] [address] [facility] [place] [facility] CBC LEUKOCYTES [#/VOLUME] IN BLOOD BY AUTOMATED COUNT 6.75 10*3/u L 4.50 - 11.00 09/08 Specimen Type: BLOOD No comment entered. Ordering Provider: KAUSHIK EDWARDS Report Released Date/Time: Mar 19, 2024 09:43 AM Reporting Lab: [facility] [place] [address] [address] Performing Lab: [facility] [place] [address] [address] [facility] [place] [facility] CBC ERYTHROCYTE S [#/VOLUME] IN BLOOD BY AUTOMATED COUNT 4.47 10*6/u L 4.23 - 5.66 09/08 Specimen Type: BLOOD No comment entered. Ordering Provider: KAUSHIK EDWARDS Report Released Date/Time: Mar 19, 2024 09:43 AM Reporting Lab: [facility] [place] [address] [address] Performing Lab: [facility] [place] [address] [address] [facility] [place] [facility] HEMOGLOBIN [MASS/VOLUM E] IN BLOOD 13.8 g/dL 12.8 - 17 04/16 /2025 Specimen Type: BLOOD No comment entered. Ordering Provider: KAUSHIK EDWARDS Report Released Date/Time: Mar 19, 2024 09:43 AM Reporting Lab: [facility] [place] [facility] [address] [facility] [address] Performing Lab: [facility] [place] [facility] [address] [facility] [address] [facility] [place] [facility] HEMATOCRIT [VOLUME FRACTION] OF BLOOD BY AUTOMATED COUNT 41.3 39.2 - 50.4 09/08 Specimen Type: BLOOD No comment entered. Ordering Provider: KAUSHIK EDWARDS Report Released Date/Time: Mar 19, 2024 09:43 AM Reporting Lab: [facility] [place] [facility] [address] [facility] [address] Performing Lab: [facility] [place] [address] [address] [facility] [place] [facility] MCV [ENTITIC VOLUME] BY AUTOMATED COUNT 92.4 fL 82 - 99 09/08 Specimen Type: BLOOD No comment entered. Ordering Provider: KAUSHIK EDWARDS Report Released Date/Time: Mar 19, 2024 09:43 AM Reporting Lab: [facility] [place] [facility] [address] [facility] [address] Performing Lab: [facility] [place] [facility] [address] [facility] [address] [facility] [place] [facility] CBC MCHC [MASS/VOLUM E] BY AUTOMATED COUNT 33.4 g/dL 30.8 - 35.1 09/08 Specimen Type: BLOOD No comment entered. Ordering Provider: KAUSHIK EDWARDS Report Released Date/Time: Mar 19, 2024 09:43 AM Reporting Lab: [facility] [place] [facility] [address] [facility] [phone] Performing Lab: [facility] [place] [facility] [address] [facility] [phone] [facility] [place] [facility] CBC PLATELETS [#/VOLUME] IN BLOOD BY AUTOMATED COUNT 257 10*3/u L 140 - 360 04/16 /2025 Specimen Type: BLOOD No comment entered. Ordering Provider: KAUSHIK EDWARDS Report Released Date/Time: Mar 19, 2024 09:43 AM Reporting Lab: [facility] [place] [facility] [address] [facility] [address] Performing Lab: [facility] [place] [facility] [address] [facility] [phone] [facility] [place] [facility] CBC PLATELET MEAN VOLUME [ENTITIC VOLUME] IN BLOOD BY AUTOMATED COUNT 11.2 fL 9.2 - 12.4 09/08 Specimen Type: BLOOD No comment entered. Ordering Provider: KAUSHIK EDWARDS Report Released Date/Time: Mar 19, 2024 09:43 AM Reporting Lab: [facility] [place] [facility] [address] [facility] [phone] Performing Lab: [facility] [place] [address] [address] [facility] [place] [facility] CBC ERYTHROCYTE DISTRIBUTIO N WIDTH [RATIO] BY AUTOMATED COUNT 15.3 12.0 - 16.0 09/08 Specimen Type: BLOOD No comment entered. Ordering Provider: KAUSHIK EDWARDS Report Released Date/Time: Mar 19, 2024 09:43 AM Reporting Lab: [facility] [place] [facility] [address] [facility] [phone] Performing Lab: [facility] [place] [facility] [address] [facility] [phone] [facility] [place] [facility] CBC MCH [ENTITIC MASS] BY AUTOMATED COUNT 30.9 pg 26.2 - 32.6 09/08 Specimen Type: BLOOD No comment entered. Ordering Provider: KAUSHIK EDWARDS Report Released Date/Time: Mar 19, 2024 09:43 AM Reporting Lab: [facility] [address] [facility] [address] Performing Lab: [facility] [address] [address] [facility] LIPID PANEL, NON FASTING CHOLESTEROL [MASS/VOLUM E] IN SERUM OR PLASMA 165 mg/dL 02/23 Specimen Type: SERUM No comment entered. Ordering Provider: KAUSHIK EDWARDS Report Released Date/Time: Feb 17, 2024 10:24 AM Reporting Lab: [facility] [place] [facility] [address] [facility] [address] Performing Lab: [facility]USE[facility] [address] [facility] [address] [facility]USE [facility] LIPID PANEL, NON FASTING TRIGLYCERID E [MASS/VOLUM E] IN SERUM OR PLASMA 91 mg/dL 0 - 150 02/23 Specimen Type: SERUM No comment entered. Ordering Provider: KAUSHIK EDWARDS Report Released Date/Time: Feb 17, 2024 10:24 AM Reporting Lab: [facility] [address] Performing Lab: [facility]USE[address] [address] [facility]ITALRHALE INFIRMARYN [facility]ITALUSE [facility] LIPID PANEL, NON FASTING CHOLESTEROL IN LDL [MASS/VOLUM E] IN SERUM OR PLASMA BY CALCULATION 74 mg/dL 0 - 129 02/23 Specimen Type: SERUM No comment entered. Ordering Provider: KAUSHIK EDWARDS Report Released Date/Time: Feb 17, 2024 10:24 AM Reporting Lab: [facility] TR[facility] [address] [address] Performing Lab: [facility] [address] [facility] LIPID PANEL, NON FASTING CHOLESTEROL .TOTAL/CHOL ESTEROL IN HDL [MASS RATIO] IN SERUM OR PLASMA 2.3 02/23 Specimen Type: SERUM No comment entered. Ordering Provider: KAUSHIK EDWARDS Report Released Date/Time: Feb 17, 2024 10:24 AM Reporting Lab: [facility] [place] [address] [address] Performing Lab: [facility]USE[address] [address] [facility]ITALRW[facility] LIPID PANEL, NON FASTING CHOLESTEROL IN HDL [MASS/VOLUM E] IN SERUM OR PLASMA 73 mg/dL 40 - 60 02/23 H Specimen Type: SERUM No comment entered. Ordering Provider: KAUSHIK EDWARDS Report Released Date/Time: Feb 17, 2024 10:24 AM Reporting Lab: [facility] [address] [facility] [address] Performing Lab: [facility] [address] [facility] [address] [facility] BASIC METABOLIC PANEL (non-fast ing) UREA NITROGEN [MASS/VOLUM E] IN SERUM OR PLASMA 22 mg/dL 7 - 25 02/23 Specimen Type: SERUM No comment entered. Ordering Provider: KAUSHIK EDWARDS Report Released Date/Time: Feb 17, 2024 10:24 AM Reporting Lab: [address] [address] Performing Lab: [address] [address] [facility] BASIC METABOLIC PANEL (non-fast ing) GLUCOSE [MASS/VOLUM E] IN SERUM OR PLASMA 92 mg/dL 65 - 100 02/23 Specimen Type: SERUM No comment entered. Ordering Provider: KAUSHIK EDWARDS Report Released Date/Time: Feb 17, 2024 10:24 AM Reporting Lab: [address] [address] Performing Lab: [facility] [address] [facility] [address] [facility] BASIC METABOLIC PANEL (non-fast ing) SODIUM [MOLES/VOLU ME] IN SERUM OR PLASMA 139 mmol/L 135 - 145 02/23 Specimen Type: SERUM No comment entered. Ordering Provider: KAUSHIK EDWARDS Report Released Date/Time: Feb 17, 2024 10:24 AM Reporting Lab: [address] [address] Performing Lab: [facility]N [facility] [address] [facility] [address] [facility]N [facility]USE [facility] BASIC METABOLIC PANEL (non-fast ing) POTASSIUM [MOLES/VOLU ME] IN SERUM OR PLASMA 4.4 mmol/L 3.5 - 5.0 02/23 Specimen Type: SERUM No comment entered. Ordering Provider: KAUSHIK EDWARDS Report Released Date/Time: Feb 17, 2024 10:24 AM Reporting Lab: [facility] [address] [address] Performing Lab: [facility]ITALRWASHINGTON COUNTY HOSPITALTRN [facility]ITALUSE[address] [address] [facility]N [facility]ITALUSE [facility] BASIC METABOLIC PANEL (non-fast ing) CHLORIDE [MOLES/VOLU ME] IN SERUM OR PLASMA 105 mmol/L 100 - 110 02/23 Specimen Type: SERUM No comment entered. Ordering Provider: KAUSHIK EDWARDS Report Released Date/Time: Feb 17, 2024 10:24 AM Reporting Lab: [facility]ITALRWASHINGTON COUNTY HOSPITALTRN [facility]ITALUSE[address] [address] Performing Lab: [facility]ITALRWASHINGTON COUNTY HOSPITALTRN [facility]ITALUSE[address] [address] [facility] BASIC METABOLIC PANEL (non-fast ing) CARBON DIOXIDE, TOTAL [MOLES/VOLU ME] IN SERUM OR PLASMA 24 meq/L 20 - 30 02/23 Specimen Type: SERUM No comment entered. Ordering Provider: KAUSHIK EDWARDS Report Released Date/Time: Feb 17, 2024 10:24 AM Reporting Lab: [facility] [address] [address] Performing Lab: [facility]ITALRWASHINGTON COUNTY HOSPITALTRN [facility]ITALUSE[address] [address] [facility] BASIC METABOLIC PANEL (non-fast ing) CREATININE [MASS/VOLUM E] IN SERUM OR PLASMA 1.04 mg/dL 0.50 - 1.40 02/23 Specimen Type: SERUM No comment entered. Ordering Provider: KAUSHIK EDWARDS Report Released Date/Time: Feb 17, 2024 10:24 AM Reporting Lab: [facility] [address] [facility] [address] Performing Lab: [facility] [place] [facility] [address] [facility] [address] [facility] BASIC METABOLIC PANEL (non-fast ing) GLOMERULAR FILTRATION RATE/1.73 SQ M.PREDICTED [VOLUME RATE/AREA] IN SERUM, PLASMA OR BLOOD BY CREATININE- BASED FORMULA (CKD-EPI 2020) 70 mL/min 60 02/23 Specimen Type: SERUM No comment entered. Ordering Provider: KAUSHIK EDWARDS Report Released Date/Time: Feb 17, 2024 10:24 AM Reporting Lab: [facility] [place] [facility] [address] [facility] [address] Performing Lab: [facility] [place] [facility] [address] [facility] [address] [facility] THYROID T4 FREE(FT4) THYROXINE (T4) FREE [MASS/VOLUM E] IN SERUM OR PLASMA 1.12 ng/dL 0.6 - 1.6 07/29 Specimen Type: SERUM No comment entered. Ordering Provider: DIAMOND NIETO Report Released Date/Time: Jul 15, 2023 09:43 AM Reporting Lab: [facility] [place] [facility] [address] [facility] [address] Performing Lab: [facility] [place] [facility] [address] [facility] [address] [facility] BASIC METABOLIC PANEL (fasting) UREA NITROGEN [MASS/VOLUM E] IN SERUM OR PLASMA 23 mg/dL 7 - 25 07/29 Specimen Type: SERUM No comment entered. Ordering Provider: DIAMOND NIETO Report Released Date/Time: Jul 15, 2023 09:43 AM Reporting Lab: [facility] [place] [facility] [address] [facility] [address] Performing Lab: [facility] [place] [facility] [address] [facility] [address] [facility] BASIC METABOLIC PANEL (fasting) GLUCOSE [MASS/VOLUM E] IN SERUM OR PLASMA 90 mg/dL 65 - 100 07/29 Specimen Type: SERUM No comment entered. Ordering Provider: DIAMOND NIETO Report Released Date/Time: Jul 15, 2023 09:43 AM Reporting Lab: [facility]R [facility]N [facility]OSPITALUSETS [address] [address] Performing Lab: [facility]RL [facility]N [facility]ITALUSE[facility] [address] [facility] [address] [facility]PITALRWASHINGTON COUNTY HOSPITALTRN [facility]OSPITALUSE [facility] BASIC METABOLIC PANEL (fasting) SODIUM [MOLES/VOLU ME] IN SERUM OR PLASMA 140 mmol/L 135 - 145 07/29 Specimen Type: SERUM No comment entered. Ordering Provider: DIAMOND NIETO Report Released Date/Time: Jul 15, 2023 09:43 AM Reporting Lab: [facility]PITALRWASHINGTON COUNTY HOSPITALTRN [facility]ITALUSE[address] [address] Performing Lab: [facility]N [facility]ITALUSE[address] [address] [facility] BASIC METABOLIC PANEL (fasting) POTASSIUM [MOLES/VOLU ME] IN SERUM OR PLASMA 4.4 mmol/L 3.5 - 5.0 07/29 Specimen Type: SERUM No comment entered. Ordering Provider: DIAMOND NIETO Report Released Date/Time: Jul 15, 2023 09:43 AM Reporting Lab: [facility] [place] [address] [address] Performing Lab: [facility]RL W[facility]N [facility]PITALUSETS [address] [address] [facility]ITALRWASHINGTON COUNTY HOSPITALTRN [facility]OSPITALUSE [facility] BASIC METABOLIC PANEL (fasting) CHLORIDE [MOLES/VOLU ME] IN SERUM OR PLASMA 105 mmol/L 100 - 110 07/29 Specimen Type: SERUM No comment entered. Ordering Provider: DIAMOND NIETO Report Released Date/Time: Jul 15, 2023 09:43 AM Reporting Lab: [facility] [address] [address] Performing Lab: [facility] [place] [facility] [address] [facility] [address] [facility] BASIC METABOLIC PANEL (fasting) CARBON DIOXIDE, TOTAL [MOLES/VOLU ME] IN SERUM OR PLASMA 25 meq/L 20 - 30 07/29 Specimen Type: SERUM No comment entered. Ordering Provider: DIAMOND NIETO Report Released Date/Time: Jul 15, 2023 09:43 AM Reporting Lab: [facility] [place] [facility] [address] [facility] [address] Performing Lab: [facility] [place] [facility] [address] [facility] [address] [facility] BASIC METABOLIC PANEL (fasting) CREATININE [MASS/VOLUM E] IN SERUM OR PLASMA 1.07 mg/dL 0.50 - 1.40 07/29 Specimen Type: SERUM No comment entered. Ordering Provider: DIAMOND NIETO Report Released Date/Time: Jul 15, 2023 09:43 AM Reporting Lab: [facility] [place] [facility] [address] [facility] [address] Performing Lab: [facility] [place] [facility] [address] [facility] [address] [facility] BASIC METABOLIC PANEL (fasting) GLOMERULAR FILTRATION RATE/1.73 SQ M.PREDICTED [VOLUME RATE/AREA] IN SERUM, PLASMA OR BLOOD BY CREATININE- BASED FORMULA (CKD-EPI 2020) 68 mL/min 60 07/29 Specimen Type: SERUM No comment entered. Ordering Provider: DIAMOND NIETO Report Released Date/Time: Jul 15, 2023 09:43 AM Reporting Lab: [facility] [place] [facility] [address] [facility] [address] Performing Lab: [facility] [place] [facility] [address] [facility] [address] [facility] W[facility]N [facility]ITALUSE [facility] LIPID PANEL FASTING CHOLESTEROL [MASS/VOLUM E] IN SERUM OR PLASMA 164 mg/dL 07/29 Specimen Type: SERUM No comment entered. Ordering Provider: DIAMOND NIETO Report Released Date/Time: Jul 15, 2023 09:43 AM Reporting Lab: [facility] [place] [facility] [address] [facility] [address] Performing Lab: [facility] [place] [facility] [address] [facility] [address] [facility] LIPID PANEL FASTING TRIGLYCERID E [MASS/VOLUM E] IN SERUM OR PLASMA 67 mg/dL 0 - 150 07/29 Specimen Type: SERUM No comment entered. Ordering Provider: DIAMOND NIETOBomgar Report Released Date/Time: Jul 15, 2023 09:43 AM Reporting Lab: [facility] [place] [facility] [address] [facility] [address] Performing Lab: [facility] [place] [facility] [address] [facility] [address] [facility] LIPID PANEL FASTING CHOLESTEROL IN LDL [MASS/VOLUM E] IN SERUM OR PLASMA BY CALCULATION 78 mg/dL 0 - 129 07/29 Specimen Type: SERUM No comment entered. Ordering Provider: DIAMOND NIETO [employer] CommunicationsTERRI Report Released Date/Time: Jul 15, 2023 09:43 AM Reporting Lab: [facility] [place] [facility] [address] [facility] [address] Performing Lab: [facility] [place] [facility] [address] [facility] [address] [facility] LIPID PANEL FASTING CHOLESTEROL .TOTAL/CHOL ESTEROL IN HDL [MASS RATIO] IN SERUM OR PLASMA 2.2 07/29 Specimen Type: SERUM No comment entered. Ordering Provider: DIAMOND NIETO [employer] CommunicationsTERRI Report Released Date/Time: Jul 15, 2023 09:43 AM Reporting Lab: [facility] [place] [facility] [address] [facility] [address] Performing Lab: [facility] [place] [facility] [address] [facility] [address] [facility] LIPID PANEL FASTING CHOLESTEROL IN HDL [MASS/VOLUM E] IN SERUM OR PLASMA 73 mg/dL 40 - 60 03/06 /2024 H Specimen Type: SERUM No comment entered. Ordering Provider: DIAMOND NIETO Report Released Date/Time: Jul 15, 2023 09:43 AM Reporting Lab: [facility] [address] [facility] [address] Performing Lab: [facility] [address] [facility] [address] [facility] Vital Signs Combined list of inpatient and outpatient Vital Signs from Department of Defense and Veterans Affairs, ranging from 12 months to all on record, depending upon the facility. Vital Sign Value Date Comments Source SYSTOLIC BLOOD PRESSURE 156 09/15/19 08:52:48 [facility] DIASTOLIC BLOOD PRESSURE 67 025 08:52:48 [facility] PULSE OXIMETRY 97 09/14/2024 08:52:48 [facility] WEIGHT 160 09/14/2024 08:52:48 [facility] BMI 28 kg/m2 09/14/2024 08:52:48 [facility] PAIN 0 09/14/2024 08:52:48 [facility] TEMPERATURE 97.8 09/14/2024 08:52:48 [facility] PULSE 49 09/14/2024 08:52:48 [facility] RESPIRATION 16 09/14/2024 08:52:48 [facility] SYSTOLIC BLOOD PRESSURE 168 03/19/20 24 09:08:18 [...] 03/19/2024 09:08:18 [facility] Encounters Combined list of: 1) Encounters from Department of Veterans Affairs facilities going backup to the last 18 months, not all VA inpatient encounters are included; 2) Encounters from the Department of Defense facilities going backup to 280 months. Location Location Details Encounter Type Encounter Number Reason For Visit Attending Provider ADM Date DC Date Status Disposition Source [facility] COMPRE [place]PH EX[place] EST PT 1/> [id number] Diagnos is: ICD-10- CM H25.13 Age-rel ated nuclear catarac t, bilater al CARMELO CUBA H B 06/18 [facility] FIT SPECTACLES MONOFOCAL [id number] Diagnos is: ICD-10- CM Z46.0 Encount er for fit/adj st of spectac les and contact lenses CARMELO CUBA H Farrukh 06/18 [facility] Out[facility] Encounter [id number] 06/25 [facility] En[facility] [id number] 07/15 [facility] En[facility] [id number] 07/28 [facility] En[facility] [id number] 08/03 [facility] En[facility] [id number] 08/05 [facility] En[facility] [id number] BECKA TALBERT 08/10 [facility] OFFICE O/P EST MOD 30 MIN [id number] Diagnos is: ICD-10- CM I48.0 Paroxys mal atrial fibrill ation TENISHA NIETO MMED JAWED 08/17 [facility] En[facility] [id number] Penelope HENDERSON E 09/15 [facility] En[facility] [id number] Penelope HENDERSON E 02/16 [facility] En[facility] [id number] 02/25 [facility] En[facility] [id number] 03/05 [facility] OFFICE O/P EST MOD 30 MIN [id number] Diagnos is: ICD-10- CM E03.9 Hypothy roidism , unspeci fied FURCOLO,TI NA 03/19 [facility] REPAIR/MOD IFYING [id number] Diagnos is: ICD-10- CM Z46.1 Encount er for fitting and adjustm ent of hearing aid SENIOR,FRANCY OLE L 04/06 [facility] En[facility] [id number] 04/14 [facility] [place] 1/ [id number] Diagnos is: ICD-10- CM Z96.1 Presenc e of intraoc ular lens ROSA ELENA,CARMELO H B 06/21 [facility] En[facility] [id number] [facility] FIT SPECTACLES BIFOCAL [id number] Diagnos is: ICD-10- CM Z46.0 Encount er for fit/adj st of spectac les and contact lenses ROSA ELENA,CARMELO H B 06/24 [facility] En[facility] [id number] [facility] En[facility] [id number] 08/02 [facility] NQHP OL DIG ASSMT&MGMT 5-10 [id number] Diagnos is: ICD-10- CM Z04.89 Encount er for examina tion and observa tion for oth reasons NIKHIL ROJO 08/30 [facility] En[facility] [id number] TEJAS ALEJANDRE 08/30 [facility] OFFICE O/P EST MOD 30 MIN [id number] Diagnos is: ICD-10- CM Z77.29 Contact with and exposur e to other hazardo us substan ESTRELLA Soria NA 09/14 [facility] HEARING AID FITTING/CH ECKING [id number] Diagnos is: ICD-10- CM H90.3 Sensori neural hearing loss, bilater al SENIOR,FRANCY OLE L 09/30 [facility] CONFORMITY EVALUATION [id number] Diagnos is: ICD-10- CM Z46.1 Encount er for fitting and adjustm ent of hearing aid SENIOR,FRANCY OLE L 10/26 [facility] Social History Combined list of available smoking, tobacco, and other social history from Department of Defense and Veterans Affairs facilities. Social History Type Response Date Comment Sour e Tobacco smoking status NHIS VA-TOBACCO NEVER [...] NON-TOBACCO USER 06/04/2016 [facility] History of tobacco use LIFETIME NON-TOBACCO USER 05/09/2015 . [facility] History of tobacco use LIFETIME NON-TOBACCO USER 10/27/2012 [facility] Plan of Care List of future care activities from Department of Veterans Affairs facilities. Additional future care activities may be listed in the Assessment and Plan section. Date/Time Care Activity Care Activity Detail Facili ty 03/15/2025 AMBULATORY - MEDICINE AMBULATORY - MEDICI [facility]
--- NOTE | 2024-12-08 08:33 | A.OFFVIS_ITS ---
Vital Signs 12/08/24 08:38 Height 5 ft 4 in Weight 156 lb 8.451 oz BMI 26.9 BP 130/76 Blood Pressure Location Lt brachial Position Sitting Pulse 44 L Intake Visit Reasons: 6m follow up Intake Note: 6 month follow-up with ekg Manager Chemistry Required: No Allergies flores (cherries) Allergy (Severe, Verified 08/19/24 10:12) Anaphylaxis amoxicillin (Augmentin) Allergy (Unknown, Verified 08/19/24 10:12) Unknown clavulanic acid (Augmentin) Allergy (Unknown, Verified 08/19/24 10:12) unknown empagliflozin (From Jardiance) Adverse Reaction (Intermediate, Verified 08/19/24 10:38) recurrent bladder spasms and dysuria Medication List - Last Reconciled 12/08/24 by Ricky Macias MD amiodarone 200 mg PO DAILY amlodipine 10 mg PO DAILY apixaban (Eliquis) 5 mg PO BID atorvastatin 20 mg PO BEDTIME finasteride 5 mg PO DAILY furosemide 20 mg PO DAILY levothyroxine 75 mcg PO DAILY 90 days omeprazole 20 mg PO DAILY tamsulosin 0.4 mg PO BEDTIME 30 days HPI Comments Details: Dima comes for follow-up. Overall he has been doing well. He said he has been slowing down due to musculoskeletal issues due back pain and joint pains. He does get exertional short of breath when he does over exert himself but he said he still plays 18 holes of golf and enjoys his life and has had no much restriction. Denies any orthopnea, PND. Denies any lightheadedness, syncope. Takes all his medications. No bleeding issues or neurologic events. He is awaiting upper endoscopy but there has been issue with providing him with conscious sedation. Patient underwent recent cataract surgery without sedation and as per him did not have the best results. His blood pressure is well optim ized. Denies any anginal symptoms. [facility]LY [facility] Medical History Primary osteoarthritis of both hips Lumbar degenerative disc disease Pure hypercholesterolemia Cervical disc disease Essential hypertension (HFpEF) heart failure with preserved ejection fraction Sick sinus syndrome Acquired hypothyroidism Diastolic dysfunction Retention of urine Angioedema Acute bacterial prostatitis Prostatitis Hearing aid worn Atrial fibrillation Pulmonary nodules Hyperkalemia Overweight (BMI 25.0-29.9) Vitamin D deficiency Vitamin B12 deficiency Chronic kidney disease, stage II (mild) Chronic gastritis without bleeding Sinus bradycardia Right bundle branch block (RBBB) determined by electrocardiography Hyperlipidemia HTN (hypertension) History of cardiomyopathy History of congestive heart failure Paroxysmal atrial fibrillation CAD (coronary artery disease) On amiodarone therapy Surgical History Hx of ventral hernia repair Hx of hand surgery History of prostate surgery Hx of colostomy History of colon resection Hx of knee surgery Hx of colonoscopy Hx of endoscopy History of radiofrequency ablation procedure for cardiac arrhythmia History of cardioversion Family History Father No problems noted. Mother CVD (cardiovascular disease) CHF (congestive heart failure) Social History Household Members: Spouse Housing: House Do you presently have visiting nurse or other home services: Yes Alcohol intake: current Alcohol intake frequency: holidays/special occasions only Alcohol type: wine Comment: pt refuses bed alarm Patient Tobacco Use Status: Never used Tobacco e-Cigarette/Vaping Use: Never Used Second Hand Smoke Exposure: No Advance Directives Date on File: 04/27/08 service: Yes Current occupational status: retired Cognitive needs: No Hearing needs: Yes Vision needs: Yes Review of Systems Const Denies chills, Denies fatigue, Denies fever(s), Denies frequent falls, Denies weakness, Denies weight gain and Denies weight loss ENT Denies dizziness Card Denies chest pain, Denies leg edema, Denies lightheadedness, Denies palpitations, Denies dyspnea, Denies dyspnea on exertion, Denies orthopnea and Denies other (loss of consciousness) Resp Denies cough, Denies dyspnea and Denies dyspnea on exertion GI Denies hematochezia and Denies change in stool character Musc Denies abnormal gait, Denies muscle weakness, Denies numbness, Denies radiating pain into limb and Denies tingling Neuro Denies abnormal gait, Denies dizziness, Denies frequent falls, Denies numbness, Denies tingling and Denies weakness Endo Denies fatigue and Denies palpitations Physical Exam Vital Signs: Last Vital Signs Pulse 44 L 12/08/24 08:38 BP 130/76 12/08/24 08:38 BMI result Body Mass Index 26.9 Const General: cooperative, comfortable, no acute distress, alert and awake Nutritional Appearance: overweight Orientation/consciousness: patient oriented x3 Limitations: no limitations Neck Neck: Yes trachea midline, Yes supple and Yes no JVD (Positive AJR) Resp Effort & Inspection: normal respiratory effort Auscultation: clear to auscultation bilaterally Cardio Jugular venous distension: no JVD Palpation: normal PMI Rate: bradycardic Rhythm: regular rhythm Heart sounds: S1 normal heart sound present, S2 normal heart sound present, no click, no gallops, no murmurs and Other heart sounds present (S4 present) GI Auscultation: normal bowel sounds Skin General skin exam: no rashes or lesions noted Neuro General: patient oriented x3 and no focal motor deficits Extrem General: No clubbing, No cyanosis and Yes edema Office Procedures EKG Details: EKG shows marked sinus bradycardia at 44 beats per minute with right bundle- branch block, unchanged from before [id number], Complete Assessment & Plan Assessment & Plan (1) Paroxysmal atrial fibrillation: Comment: Myocardial perfusion study done on 06/13/2020 came out normal Echocardiogram done in April 2020 also came out normal, with normal left ventricular systolic function and ejection fraction estimated between 65-70%. 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 and this will be monitored closely Code(s): I48.0 - Paroxysmal atrial fibrillation Category: Medical Plan: Paroxysmal atrial fibrillation which is highly symptomatic has undergone ablation in the past but has has required amiodarone to suppress his recurrent atrial fibrillation and tachycardia. He has done extremely well with rhythm control approach with normalization of LV systolic function. Will continue pursue rhythm control approach. He has not tolerated low-dose of amiodarone which we have tried in the past and has had recurrent atrial arrhythmias. Currently on 200 mg amiodarone. We had discussed long-term side effects of amiodarone and he understands. Continue check for annual toxicity of amiodarone. Continue full oral anticoagulation, currently on Eliquis which has tolerated well. Semi annual renal function test and annual CBC should be pursued. (2) (HFpEF) heart failure with preserved ejection fraction: Code(s): I50.30 - Unspecified diastolic (congestive) heart failure Category: Medical Qualifiers: Heart failure chronicity: chronic Qualified Code(s): I50.32 - Chronic diastolic (congestive) heart failure Plan: Heart failure with now preserved ejection fraction with advanced diastolic dysfunction. Clinically without any signs or symptoms of heart failure. Has done extremely well on low-dose diuretic therapy. Continue the same. Daily weight monitoring avoidance salt loading was discussed. He is most benefit from rhythm control approach and will be pursued. Continue aggressive blood pressure control which is also currently well optimized advised to monitor blood pressure at home maintain a log. Advised to maintain activity level which she is currently doing very well. (3) Sick sinus syndrome: Code(s): I49.5 - Sick sinus syndrome Category: Medical Plan: Sick sinus syndrome due to medical therapy and aging. He has no symptoms and no symptoms of chronotropic incompetence. He has not had any syncopal events. We had a detailed discussion including a EP consult and he wants to currently want to continue to defer it for now. I agree with him about the same given that he has good quality of life at this point in time. (4) Preoperative cardiovascular examination: Code(s): Z01.810 - Encounter for preprocedural cardiovascular examination Plan: Preoperative cardiovascular risk stratification this elderly gentleman with multiple cardiovascular morbidity and conditions. He has baseline sinus bradycardia which has tolerated well in his heart rate does not go below that in his never had any syncopal episode. Stable sick sinus syndrome and at this point time I think he is optimized to undergo upper endoscopy which is low risk procedure with low to intermediate risk for perioperative cardiovascular morbidity mortality and I think he should be able to tolerate monitored anesthesia well. Will follow with him in 6 months time, sooner p.r.n.. Thank you for allowing me to partake in his care Coding Level of Care Code Est Pt Level 4 (98070) Complex EM visit Add On G2211 Diagnoses Paroxysmal atrial fibrillation I48.0 Chronic heart failure with preserved ejection fraction I50.32 Heart failure chronicity: chronic Sick sinus syndrome I49.5 Preoperative cardiovascular examination Z01.810 CPT Codes EKG - CPT: 11033-[id number], Complete ([id number])
[2024-12-08 08:38] VITALS: BP 130/76; PULSE 44; BMI 26.9
== END 2024-12-08 09:22 | disposition home or self-care (01) ==
LOC: HO.HCS 08:30
PROVIDERS: PCP Internal Medicine; Visit Provider Internal Medicine Cardiovascular Disease
DX: I48.0 Paroxysmal atrial fibrillation (principal); I50.32 Chronic diastolic (congestive) heart failure; I49.5 Sick sinus syndrome; Z01.810 Encounter for preprocedural cardiovascular examination
CPT/HCPCS: 93010; 99214; G2211

== ENCOUNTER → 2024-12-08 08:30 | Outpatient (BNVA) | payer MEDICARE, SELFPAY | PROVIDERS: PCP Internal Medicine; Visit Provider Internal Medicine Cardiovascular Disease | DX: Z01.810 Encounter for preprocedural cardiovascular examination (principal); I11.0 Hypertensive heart disease with heart failure; I50.32 Chronic diastolic (congestive) heart failure; I48.0 Paroxysmal atrial fibrillation; I49.5 Sick sinus syndrome; Z79.01 Long term (current) use of anticoagulants; Z79.899 Other long term (current) drug therapy | CPT/HCPCS: 93005; 99212 ==

== ENCOUNTER 2025-01-26 07:40 | Outpatient (REF) | payer MEDICARE, SELFPAY ==
--- OUTSIDE RECORDS SUMMARY | 2024-03-19 05:00 | XMS_ITS ---
Author Name [facility] [place] [facility] [place] Address [address] [place] [address] Care Team Providers Care Motel Manager Name Role Phone FIDENCIO EDWARDS Primary Care Provider Unavailabl e Insurance Providers: All historical and current Section Date Range: From patient's date of to the date document was created. This section includes the names of all active insurance providers for the patient. Insurance Provider Type of Coverage Plan Name Start of Policy Coverage End of Policy Coverage Group Number Member ID Insurance Provider's Telephone Number Policy Douglas's Name Patient's Relationship to Policy Douglas AARP MED SUPP MEDICARE SUPPLEMEN JOVANNA Jun 26, 2007 PLAN [id number] ROSA FLANNERY PATIENT MEDICARE (WNR) MEDICARE (M) PART B May 26, 2007 PART B [id number] ROSA FLANNERY PATIENT MEDICARE (WNR) MEDICARE (M) PART A Dec 24, 2002 PART A [id number] ROSA FLANNERY PATIENT Selected Encounter This section includes the information on record at [place] for the Encounter. Date/Time Encounter Type Encounter Description Reason Provider Source Mar 19, 2024 09:00 AM OFFICE O/P EST MOD 30 MIN PRIMARY CARE/MEDICINE ICD-10-CM E03.9 Hypothyroidism, unspecified FIDENCIO EDWARDS [facility] Encounter Template Text not used by [place] Assessments - Encounter Diagnoses This section includes the primary and secondary diagnoses documented for the Encounter. Date/Time Primary/Secondary Diagnosis Diagnosis Name Provider Source Mar 19, 2024 02:53 PM PRIMARY Hypothyroidism, unspecified FIDENCIO EDWARDS [place] [facility] [place] [facility] Mar 19, 2024 02:53 PM SECONDARY Essential (primary) hypertension FIDENCIO EDWARDS [place] [facility] [place] [facility] Mar 19, 2024 02:53 PM SECONDARY Gastro-esophageal reflux disease without esophagitis FIDENCIO EDWARDS [place] [facility] [place] [facility] Mar 19, 2024 02:53 PM SECONDARY Paroxysmal atrial fibrillation FIDENCIO EDWARDS [place] [facility] [place] [facility] Mar 19, 2024 02:53 PM SECONDARY Unspecified diastolic (congestive) heart failure [facility] Plan of Treatment: Future Appointments (+ 6 months) and Future Tests (+/- 45 days) The Plan of Treatment section includes future care activities for the [facility] [place] [facility] This section includes future appointments and future orders which are active, pending or scheduled. Future Appointments This section includes appointments that were scheduled to occur 6 months from the date of the Encounter, up to a maximum of 20 appointments. The data comes from all [place] treatment facilities. Appointment Date/Time Appointment Type Appointme nt Facility Name Apr 06, 2024 10:00 AM [facility] Jun 21, 2024 10:30 AM [facility] Sep 14, 2024 09:00 AM [facility] Lab Results: +/- 30 days of the encounter This section includes the Chemistry and Hematology Lab Results on record with [place] for the patient. Radiology Reports and Pathology Reports are provided separately, in subsequent sections. Lab Results This section contains the Chemistry/Hematology Results that were resulted 30 days before or 30 daysafter the date of the Encounter. Date/Time Source Result Type Result - Unit Interpretation Reference Range Specimen Type Comment Feb 24, 2024 08:47 AM [facility] LIPID PANEL, NON FASTING SERUM Specimen Type: SERUM No comment entered. Ordering Provider: FIDENCIO EDWARDS Report Released Date/Time: Feb 17, 2024 10:24 AM Reporting Lab: [facility] [address] [facility] [address] Performing Lab: [facility] [address] [facility] [address] CHOLESTEROL 165 mg/dL TRIGLYCERIDE 91 mg/dL 0-150 LDL calculated 74 mg/dL 0-129 CHOL/HDL 2.3 HDL CHOLESTEROL 73 mg/dL H 40-60 Feb 24, 2024 08:47 AM [facility] BASIC METABOLIC PANEL (non-fasting) SERUM Spe cimen Type: SERUM No comment entered. Ordering Provider: FIDENCIO EDWARDS Report Released Date/Time: Feb 17, 2024 10:24 AM Reporting Lab: [facility] [address] [facility] [address] Performing Lab: [address] [address] UREA NITROGEN 22 mg/dL 7-25 GLUCOSE 92 mg/dL 65-100 SODIUM 139 mmol/L 135-145 POTASSIUM 4.4 mmol/L 3.5-5.0 CHLORIDE 105 mmol/L 100-110 CO2 24 meq/L 20-30 CREATININE, Serum 1.04 mg/dL 0.50-1.40 eGFR(CKD-EPI 2020) 70 mL/min >60 Vital Signs: All taken on the encounter date This section contains inpatient and outpatient Vital Signs collected on the date of the Encounter. Date/Time Temperature Pulse Blood Pressure Respiratory Rate SP02 Pain Height Weight Body Mass Index Source Mar 19, 2024 02:49 PM 150/78 [facility] Mar 19, 2024 09:08 AM 97.7 51 168/78 16 96 158 28 [facility] Social History: Smoking Status (Most current) and Tobacco Use (All prior to encounter date) This section includes the most current, and the historical, smoking and tobacco- related health factors from the [place] facility where the Encounter took place. Current Smoking Status This section includes the most current smoking, or tobacco-related health factor, from the [place] facility where the Encounter took place. Date/Time Current Smoking Status Comment Facil ity Aug 18, 2023 03:30 PM VA-TOBACCO NEVER USED [place] [facility] [place] [facility] Tobacco Use History This section includes a history of the smoking, or tobacco-related health factors, that were collected on or before the date of the Encounter. The data comes from the [place] facility where the Encounter took place. Date/Time Smoking Status/Tobacco Use Comment Leonard cutler Aug 01, 2022 10:30 AM VA-TOBACCO NEVER USED [facility] [place] [facility] Jul 03, 2021 01:00 PM VA-TOBACCO NEVER USED [facility] [place] [facility] Jun 16, 2020 08:30 AM VA-TOBACCO NEVER USED [facility] [place] [facility] Dec 07, 2018 01:47 PM VA-TOBACCO NEVER USED [facility] [place] [facility] Dec 15, 2017 08:52 AM VA-TOBACCO NEVER USED [facility] [place] [facility] Jun 02, 2017 03:31 PM LIFETIME NON-TOBACCO USER [facility] [place] [facility] Jun 04, 2016 08:53 AM LIFETIME NON-TOBACCO USER [facility] [place] [facility] May 09, 2015 09:21 AM LIFETIME NON-TOBACCO USER . [facility] [place] [facility] Oct 27, 2012 10:50 AM LIFETIME NON-TOBACCO USER [facility] [place] [facility] Encounter Notes: All associated encounter notes This section contains the clinical notes associated to the Encounter. Date/Time Encounter Note(s) Provider Source Mar 19, 2024 09:14 AM PHYSICIAN NOTE: LOCAL TITLE: NOTE STANDARD TITLE: PHYSICIAN NOTE DATE OF NOTE: MAR 19, 2024@09:14 ENTRY DATE: MAR 19, 2024@09:14:38 AUTHOR: FIDENCIO EDWARDS EXP COSIGNER: URGENCY: STATUS: COMPLETED BRY FLANNERY MD is a 88 year old WHITE MALE who is being seen today in primary care for routine follow up. CARE TEAM Community Primary Care Provider: all have retired [place] Specialists: Community Specialists: septic tank cleaner--Ricky Macias M.D, Fadi Dickinson GI- Dr. Bernal urology- Dr. Villa Aguilar HISTORY PERIOD OF SERVICE - [place] SERVICE CONNECTED % - NONE FOUND HISTORY OF PRESENT ILLNESS Patient presents today for routine follow-up: some sob [place]4 years, question of pulm fibrosis septic tank cleaner has him scheudled for a stress test and an echo stopped empagliflozin- developed dysuria on higher dose of amlodipine, then placed on furosemide for LE edema RELEVANT PAST MEDICAL HISTORY Active problems - Computerized Problem List is the source for the followin. Exposure to potentially hazardous substance Connect Snomed Code to ICD 10 Code refer to note dated 02/19/23 2. Hypothyroidism 3. Diastolic heart failure 4. Chronic prostatitis 5. Long-term current use of anticoagulant 6. Gastroesophageal reflux disease 7. Low back pain 8. Paroxysmal atrial fibrillation (SNOMED CT 894468040) s/p ablation x 2, now on amiodarone septic tank cleaner--Ricky Macias M.D 9. Essential hypertension (SNOMED CT 43580904) 10. Hypercholesterolemia (SNOMED CT 50940836) 11. 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72, then outpatient surgery [facility] (did GI- scopes)- stopped at age 83 Alcohol Use: glass of wine with dinner 3 x per week Tobacco Use: never Exercise: golf 3x per week, lots of hiking ALLERGIES AUGMENTIN, CHERRIES, LISINOPRIL MEDICATIONS Active and Recently Outpatient Medications (excluding Supplies): Active Outpatient Medications Status 1) APIXABAN 5MG TAB TAKE ONE TABLET BY MOUTH TWICE DAILY ACTIVE 2) ATORVASTATIN CALCIUM 20MG TAB TAKE ONE TABLET BY ACTIVE MOUTH EVERY DAY FOR CHOLESTEROL 3) FINASTERIDE 5MG TAB TAKE ONE TABLET BY MOUTH ONCE ACTIVE DAILY FOR PROSTATE 4) LEVOTHYROXINE NA (SYNTHROID) 75MCG TAB TAKE ONE ACTIVE (S) TABLET BY MOUTH EVERY MORNING 30 MINUTES BEFORE BREAKFAST FOR THYROID TAKE ON AN EMPTY STOMACH WITH A FULL GLASS OF WATER 5) OMEPRAZOLE 20MG EC CAP TAKE TWO CAPSULES BY MOUTH ACTIVE EVERY MORNING 30 MINUTES BEFORE BREAKFAST FOR STOMACH ULCER 6) SILDENAFIL CITRATE 100MG TAB TAKE ONE TABLET BY MOUTH ACTIVE (S) EVERY DAY NEEDED TAKE 1 HOUR PRIOR TO SEXUAL ACTIVITY 7) TAMSULOSIN HCL 0.4MG CAP TAKE ONE CAPSULE BY MOUTH ACTIVE ONCE DAILY Active Non-VA Medications Status 1) Non-VA AMIODARONE HCL (PACERONE) 200MG TAB 200MG BY ACTIVE MOUTH EVERY DAY 2) Non-VA AMLODIPINE BESYLATE 10MG TAB 10MG BY MOUTH ACTIVE ONCE DAILY 3) Non-VA FUROSEMIDE 20MG TAB 20MG BY MOUTH ACTIVE 10 Total Medications REVIEW OF SYMPTOMS POSITIVE FOR: NEGATIVE FOR: CONSTITUTION: no weight loss/gain, fatigue, fevers, night sweats HEENT: no vision problems, hearing loss,swallowing difficulties, sinus pain CV: no chest pain, palpitations, dyspnea on exertion, orthopnea RESP: no cough, shortness of breath, wheezing GI: no abdominal pain, N/V/D, constipation, blood in stool, normal appetite : no urinary frequency, nocturia, hematuria MUSC: no joint pain, joint swelling, muscle aches NEURO: no headaches, dizziness, memory loss, tremor, weakness PSYCH: no depression, anxiety, suicidal or homicidal thoughts SKIN: no rash, new skin lesions PHYSICAL EXAM Vitals: - - - - - - - B/P: 150/78 (03/19/2024 14:49) pulse: 51 (03/19/2024 09:08) resp: 16 (03/19/2024 09:08) temp: 97.7 F [36.5 C] (03/19/2024 09:08) Ht: 63 in [160.0 cm] (08/18/2023 15:27) Wgt: 158 lb [71.67 kg] (03/19/2024 09:08) BMI: BMI: 28.0 Exam: - - - - - - - General: A&O x 3, no acute distress, normal affect and mood Neck: normal thyroid, normal carotids- no bruits CV: RRR S1S2, no murmur Resp: LCTA bilat, no wheezing, rales or rhonchi Neuro: grossly intact, no visible tremor, normal memory and speech Extremities: normal movement of extremities, normal gait, normal strength no LE edema RECENT LABS LAB CUMULATIVE SELECTED Collection DT Spec GLUCOSE BUN CREATIN Sodium K+/Pot CL CO2 02/24/2024 08:47 SERUM 92 22 1.04 139 4.4 105 24 07/30/2023 10:22 SERUM 90 23 1.07 140 4.4 105 25 02/10/2023 09:05 SERUM 101 H 20 1.24 141 4.6 105 27 07/19/2022 09:39 SERUM 93 25 1.23 138 4.9 104 26 01/24/2022 08:28 SERUM 96 26 H 1.13 140 5.0 104 27 LIPID PANEL TREND Collection DT Spec CHOL HDL CHO/HDL LDL-c TRIG 02/24/2024 08:47 SERUM 165 73 H 2.3 74 91 07/30/2023 10:22 SERUM 164 73 H 2.2 78 67 02/10/2023 09:05 SERUM 198 85 H 2.3 99 69 07/19/2022 09:39 SERUM 220 H 80 H 2.8 124 81 01/24/2022 08:28 SERUM 179 76 H 2.4 87 78 THYROID PANEL Collection DT Specimen Test Name Result Units Ref Range 07/30/2023 10:22 SERUM TSH 1.90 uIU/mL 0.35 - 5.00 07/30/2023 10:22 SERUM Free T4 SR-REF 1.12 ng/dL 0.6 - 1.6 ASSESSMENT AND PLAN Active problems - Computerized Problem List is the source for the followin. Exposure to potentially hazardous substance Connect Snomed Code to ICD 10 Code refer to note dated 02/19/23 2. Hypothyroidism- repeat in 6 mo- at goal 3. Diastolic heart failure- sees cardiology. needs better BP control 4. Chronic prostatitis 5. Long-term current use of anticoagulant- no bleeding, no falls 6. Gastroesophageal reflux disease- sees GI for endoscopy- on PPI once daily 7. Low back pain 8. Paroxysmal atrial fibrillation (SNOMED CT 794438401) s/p ablation x 2, now on amiodarone septic tank cleaner--Ricky Macias M.D 9. Essential hypertension (SNOMED CT 62025597)- elevated today- checks at home - usually <130/80 10. Hypercholesterolemia (SNOMED CT 00502655) 11. History of male erectile disorder (SNOMED CT 861533445) FOLLOW UP f/u in 6 mo VISIT TYPE: a MODERATE complexity visit where 30 minutes was spent in direct patient care, review of records and documentation. Medication Reconciliation: Outpatient: Has the patient been taking medications as documented in the EMLR? No: Discrepencies were identified. See below. Essential Medication List for Review used to complete this medication reconciliation. INCLUDED IN THIS LIST: Alphabetical list of active outpatient prescriptions dispensed from this [place] (local) and dispensed from another [place] or [facility] facility (remote) as well as inpatient orders (local, pending and active), local clinic medications, locally documented non-VA medications, and local prescriptions that have or been discontinued in the past 90 days. - Discrepancies were identified, addressed, and discussed with the patient/caregiver at this encounter. Discrepancies: on amlodipine 10 mg , started furosemide daily. no longer on empagliflozin - All changes in medications, including all non-VA/Herbal/OTC medications were entered into CPRS. - If there were any medications the patient should no longer take, they were discontinued. - The patient/caregiver was instructed to update this list, discard old lists, and take this list to the next appointment, whether with a VA or non-VA provider. /odilon/ FIDENCIO EDWARDS D.O. PHYSICIAN Signed: 03/19/2024 14:53 FIDENCIO EDWARDS [place] [facility] [place] [facility] Mar 19, 2024 09:02 AM PREVENTIVE MEDICINE NURSING NOTE: LOCAL TITLE: CLINICAL REMINDERS/NURSING STANDARD TITLE: PREVENTIVE MEDICINE NURSING NOTE DATE OF NOTE: MAR 19, 2024@09:02 ENTRY DATE: MAR 19, 2024@09:02:49 AUTHOR: YOGESH TALBERT EXP COSIGNER: URGENCY: STATUS: COMPLETED PTSD Screening: PC-PTSD-5 A PTSD screening test (PC-PTSD-5) was negative (score=0). IN THE PAST MONTH, have you ever had any experience that was so frightening, horrible or traumatic. For example: A serious accident or fire a physical or sexual assault or abuse An earthquake or flood A war Seeing someone be killed or seriously injured Having a loved one through homicide or suicide 1. Have you ever experienced this kind of event? NO 2. Had nightmares about the event(s) or thought about the event(s) when you did not want to? Response not required due to responses to other questions. 3. Tried hard not to think about the event(s) or went out of your way to avoid situations that reminded you of the event(s)? Response not required due to responses to other questions. 4. Been constantly on guard, watchful, or easily startled? Response not required due to responses to other questions. 5. Bishop numb or detached from people, activities, or your surroundings? Response not required due to responses to other questions. 6. Bishop guilty or unable to stop blaming yourself or others for the event(s) or any problems the event(s) may have caused? Response not required due to responses to other questions. Depression Screening: Perform PHQ-2 A PHQ-2 screen was performed. The score was 0 which is a negative screen for depression. Over the past two weeks, how often have you been bothered by the following problems? 1. Little interest or pleasure in doing things Not at all 2. Feeling down, depressed, or hopeless Not at all Falls & Incontinence Screen: Falls Screen: During the past 12 months, did the patient report any falls? 4. No falls within the past year. Incontinence Screen: During the past 12 months, has the patient has any characteristics of incontinence (ability, voiding, leakage, etc.)? No incontinence. Influenza Immunization: The patient has received the seasonal influenza vaccine for the current season at another location. Documented: INFLUENZA, UNSPECIFIED FORMULATION Historical Date Administered: Feb 26, 2024 Series: Complete Outside Location: Outside Healthcare Provider Information Source: FROM OTHER REGISTRY Alcohol Use Screen (AUDIT-C): Alcohol Screen: SCREEN FOR ALCOHOL (AUDIT-C) An alcohol screening test (AUDIT-C) was negative (score=3). 1. How often did you have a drink containing alcohol in the past year? Consider a drink to be a 12 ounce can or bottle of regular beer, 8 ounces of malt liquor, a 5 ounce glass of table wine, or a 1.5 ounce shot of liquor (like scotch, gin, or vodka). Two to three times per week 2. How many drinks containing alcohol did you have on a typical day when you were drinking in the past year? One or two drinks 3. How often did you have six or more drinks on one occasion in the past year? Never Sexual Orientation: The patient thinks of their sexual orientation as: Straight or Heterosexual /es/ YOGESH TALBERT LPN License Practical Nurse Signed: 03/19/2024 09:15 YOGESH TALBERTRFabian [facility]
--- OUTSIDE RECORDS SUMMARY | 2024-04-06 06:00 | XMS_ITS ---
Author Name [facility] [place] Organization [facility] [place] [place] Address [address] [place] [address] Care Team Providers Care Road Roller Operator Hot Mix Name Role Phone FIDENCIO EDWARDS Primary Care [...] MEDICARE SUPPLEMEN JOVANNA Jun 26, 2007 PLAN [id number] ROSA FLANNERY PATIENT MEDICARE (WN) MEDICARE (M) PART B May 26, 2007 PART B [id number] ROSA FLANNERY PATIENT MEDICARE (WNR) MEDICARE (M) PART A Dec 24, 2002 PART A [id number] ROSA FLANNERY PATIENT Selected Encounter This section includes the information on record at [place] for the Encounter. Date/Time Encounter Type Encounter Description Reason Provider Source Apr 06, 2024 10:00 AM HEARING AID REPAIR/MODIFYIN G AUDIOLOGY ICD-10-CM Z46.1 Encounter for fitting and adjustment of hearing aid SENIOR,SAVANAH L IHE Encounter Template Text not used by [place] Assessments - Encounter Diagnoses This section includes the primary and secondary diagnoses documented for the Encounter. Date/Time Primary/Secondary Diagnosis Diagnosis Name Provider Source Apr 06, 2024 11:45 AM PRIMARY Encounter for fitting and adjustment of hearing aid SAVANAH TORIBIO [facility] Apr 06, 2024 11:45 AM SECONDARY Sensorineural hearing loss, bilateral SAVANAH TORIBIO [facility] Plan of Treatment: Future Appointments (+ 6 months) and Future Tests (+/- 45 days) The Plan of Treatment section includes future care activities for the patient from all [place] [facility] This section includes future appointments and future orders which are active, pending or scheduled. Future Appointments This section includes appointments that were scheduled to occur 6 months from the date of the Encounter, up to a maximum of 20 appointments. The data comes from all [place] treatment facilities. Appointment Date/Time Appointment Type Appointme nt Facility Name Jun 21, 2024 10:30 AM AMBULATORY - MEDICINE [facility] Sep 14, 2024 09:00 AM AMBULATORY - MEDICINE [facility] [place] [facility] September 30, 2024 09:00 AM AMBULATORY - REHAB MEDICIN E [facility] Social History: Smoking Status (Most current) and Tobacco Use (All prior to encounter date) This section includes the most current, and the historical, smoking and tobacco- related health factors from the [place] facility where the Encounter took place. Current Smoking Status This section includes the most current smoking, or tobacco-related health factor, from the [place] facility where the Encounter took place. Date/Time Current Smoking Status Comment Romana gregg Aug 18, 2023 03:30 PM [place]ACCO [facility] Tobacco Use History This section includes a history of the smoking, or tobacco-related health factors, that were collected on or before the date of the Encounter. The data comes from the [place] facility where the Encounter took place. Date/Time Smoking Status/Tobacco Use Comment F he Aug 01, 2022 10:30 AM [place]-TOBACCO NEVER USED [facility] [place] [facility] Jul 03, 2021 01:00 PM VA-TOBACCO NEVER USED [facility] [place] [facility] Jun 16, 2020 08:30 AM VA-TOBACCO NEVER USED [place] [facility] [place] [facility] Dec 07, 2018 01:47 PM VA-TOBACCO NEVER USED [facility] [place] [facility] Dec 15, 2017 08:52 AM VA-TOBACCO NEVER USED [facility] [place] [facility] Jun 02, 2017 03:31 PM LIFETIME NON-TOBACCO USER [facility] [place] [facility] Jun 04, 2016 08:53 AM LIFETIME NON-TOBACCO USER [facility] [place] [facility] May 09, 2015 09:21 AM LIFETIME NON-TOBACCO USER . [place] [facility] [place] [facility] Oct 27, 2012 10:50 AM LIFETIME NON-TOBACCO USER [place] [facility] [place] [facility] Encounter Notes: All associated encounter notes This section contains the clinical notes associated to the Encounter. Date/Time Encounter Note(s) Provider Source Apr 06, 2024 07:25 AM AUDIOLOGY E & M NO TE: [facility] TITLE: AUDIOLOGY CLINIC STANDARD TITLE: AUDIOLOGY E & M NOTE DATE OF NOTE: APR 06, 2024@07:25 ENTRY DATE: APR 06, 2024@07:25:17 AUTHOR: SAVANAH TORIBIO COSIGNER: URGENCY: STATUS: COMPLETED Dx CODE: Z46.1-Encounter for Fitting/Adjusting Hearing Aid(s); H90.3- Sensorineural Hearing Loss, Bilateral APPOINTMENT TYPE: Hearing Aid Check HISTORY/BACKGROUND: Onaka was seen for a hearing aid follow-up appointment, unaccompanied. He was fit with Phonak Virto M90 HSs on 10/02/21. He scheduled today's appointment for routine hearing aid maintenance. Onaka also brought his 2018 PHONAK VIRTO B90 Sachin for maintenance HEARING AID CHECK: All four hearing aids were cleaned and checked. Listening inspection revealed all devices were working well. Wax guards were replaced, debris was removed from the microphones, and vents were cleaned. was advised that he is due for new devices next spring. PLAN/RECOMMENDATION(S): 1. RTC on 09/30/24 at 9:00AM in clinic E for an updated hearing evaluation and hearing aid selection. Patient Education Education provided on the following topics: Hearing aids Education provided to: P Response to Education: VU Keita Patient P Family F Significant Other SO Verbalizes Understanding VU Returns Demonstration RD Performs Independently PI Lacks Comprehension LC Refused Education RE Not Applicable NA /odilon/ RAIZA KIRK, [facility]-A STAFF MACHINE SPRING FORMER Signed: 04/06/2024 11:45 Receipt Acknowledged By: 04/06/2024 11:48 /odilon/ ILIANA CHAMPAGNE LEAD GLASS OR MIRROR INSPECTOR SENIOR,SAVANAH POWELL CN[facility]L [facility]
--- OUTSIDE RECORDS SUMMARY | 2024-06-21 06:30 | XMS_ITS ---
Author Name [facility] [facility] [place] Address [address] [place] [address] Care Team Providers Care Containers Sales Representative Name Role Phone FIDENCIO EDWARDS Primary Care [...] MEDICARE SUPPLEMEN JOVANNA Jun 26, 2007 PLAN [id number] ROSA FLANNERY PATIENT MEDICARE (WNR) MEDICARE (M) PART B May 26, 2007 PART B [id number] ROSA FLANNERY PATIENT MEDICARE (WNR) MEDICARE (M) PART A Dec 24, 2002 PART A [id number] ROSA FLANNERY PATIENT Selected Encounter This section includes the information on record at [place] for the Encounter. Date/Time Encounter Type Encounter Description Reason Provider Source Jun 21, 2024 10:30 AM COMPRE OPH EXAM EST PT 1/> OPTOMETRY ICD-10-CM Z96.1 Presence of intraocular lens MERHAR,BHAVANI B IHE Encounter Template Text not used by [facility] Assessments - Encounter Diagnoses This section includes the primary and secondary diagnoses documented for the Encounter. Date/Time Primary/Secondary Diagnosis Diagnosis Name Provider Source Jul 09, 2024 08:13 AM PRIMARY Presence of intraocular lens BHAVANI CUBA [facility] [place] [facility] Jul 09, 2024 08:13 AM SECONDARY Regular astigmatism, bilateral BHAVANI CUAB B [facility] [place] [facility] Plan of Treatment: Future Appointments (+ 6 months) and Future Tests (+/- 45 days) The Plan of Treatment section includes future care activities for the patient from all [place] treatmentfacilities. This section includes future appointments and future orders which are active, pending or scheduled. Future Appointments This section includes appointments that were scheduled to occur 6 months from the date of the Encounter, up to a maximum of 20 appointments. The data comes from all [place] treatment facilities. Appointment Date/Time Appointment Type Appointme nt Facility Name Sep 14, 2024 09:00 AM AMBULATORY - MEDICINE [facility] [place] [facility] September 30, 2024 09:00 AM AMBULATORY - REHAB MEDICIN [facility] [place] [facility] Oct 26, 2024 11:00 AM AMBULATORY - REHAB MEDICIN E [facility] [place] [facility] Social History: Smoking Status (Most [...] 18, 2023 03:30 PM VA-TOBACCO NEVER USED [facility] [place] [facility] Tobacco Use History This section includes a history of the smoking, or tobacco-related health factors, that were collected on or before the date of the Encounter. The data comes from the [facility] facility where the Encounter took place. Date/Time Smoking Status/Tobacco Use Comment F acmatthias Aug 01, 2022 10:30 AM VA-TOBACCO NEVER USED [facility] [place] [facility] Jul 03, 2021 01:00 PM VA-TOBACCO NEVER USED [facility] [place] [facility] Jun 16, 2020 08:30 AM VA-TOBACCO NEVER USED [facility] [place] [facility] Dec 07, 2018 01:47 PM VA-TOBACCO NEVER USED [facility] [place] [facility] Dec 15, 2017 08:52 AM VA-TOBACCO NEVER USED [facility] [place] [facility] Jun 02, 2017 03:31 PM LIFETIME NON-TOBACCO USER [facility] [place] [facility] Jun 04, 2016 08:53 AM LIFETIME NON-TOBACCO USER [facility] [place] [facility] May 09, 2015 09:21 AM LIFETIME NON-TOBACCO USER . [facility] [place] [facility] Oct 27, 2012 10:50 AM LIFETIME NON-TOBACCO USER [facility] [place] [facility] Encounter Notes: All associated encounter notes This section contains the clinical notes associated to the Encounter. Date/Time Encounter Note(s) Provider Source Aug 03, 2024 12:45 PM OPTOMETRY NOTE: LOCAL TITLE: OPTOMETRY NOTE STANDARD TITLE: OPTOMETRY NOTE DATE OF NOTE: AUG 03, 2024@12:45 ENTRY DATE: AUG 03, 2024@12:45:06 AUTHOR: JAKY SANCHEZ EXP COSIGNER: URGENCY: STATUS: COMPLETED OPT HT ordered patient 1 time replacement pair of eyeglasses as requested d/t lost pair, unrepairable/not under warranty, or scratched lenses. /odilon/ JAKY SANCHEZ OPTOMETRY TECH Signed: 08/03/2024 12:45 JAKY SANCHEZ [facility] [place] [facility] Jun 21, 2024 10:19 AM OPTOMETRY NOTE: LOCAL TITLE: OPTOMETRY NOTE STANDARD TITLE: OPTOMETRY NOTE DATE OF NOTE: JUN 21, 2024@10:19 ENTRY DATE: JUN 21, 2024@10:19:38 AUTHOR: BHAVANI CUBA EXP COSIGNER: URGENCY: STATUS: COMPLETED 88 WHITE MALE NOT OR Last eye exam: 06/18/23 Reason for Visit/CC: patient here for a comprehensive eye exam. Had cataract surgery OU in feb 2024, very happy with vision afterwards but needs new glasses. He reports that 4 days ago he had horizontal diplopia at night while was driving home. Resolved by the next morning, has not had it previously or since. OHx: cataracts OU refractive error OU (-) Pain: (-) ARELLANO: (-) Diplopia: (-) Flashes: (-) Floaters: (-) Amaurosis Fugax/Tia's: (-) Eye Injury: (+) Eye Surgery: CE OU fall 2023 (-) TBI (-) FOHx: MHx: Code Description Z77.29 Exposure to potentially hazardous substance ([facility] [id number]) E03.9 Hypothyroidism ([facility] [id number]) I50.30 Diastolic heart failure ([facility] [id number]) N41.1 Chronic prostatitis ([facility] [id number]) Z79.01 Long-term current use of anticoagulant ([facility] [id number]) K21.9 Gastroesophageal reflux disease ([facility] [id number]) M54.5 Low back pain ([facility] [id number]) I48.0 Paroxysmal atrial fibrillation ([facility] [id number]) I10. Essential hypertension ([facility] [id number]) E78.00 Hypercholesterolemia ([facility] [id number]) F52.21 History of male erectile disorder ([facility] [id number]) Other: SYSTEMIC MEDICATIONS/OCULAR MEDICATIONS: Active and Recently Outpatient Medications (excluding Supplies): Active Outpatient Medications Status 1) APIXABAN 5MG TAB TAKE ONE TABLET BY MOUTH TWICE DAILY ACTIVE 2) ATORVASTATIN CALCIUM 20MG TAB TAKE ONE TABLET BY MOUTH EVERY ACTIVE DAY FOR CHOLESTEROL 3) FINASTERIDE 5MG TAB TAKE ONE TABLET BY MOUTH ONCE DAILY FOR ACTIVE PROSTATE 4) LEVOTHYROXINE NA (SYNTHROID) 75MCG TAB TAKE ONE TABLET BY ACTIVE MOUTH EVERY MORNING 30 MINUTES BEFORE BREAKFAST TAKE ON AN EMPTY STOMACH WITH A FULL GLASS OF WATER Indication: FOR THYROID 5) OMEPRAZOLE 20MG EC CAP TAKE TWO CAPSULES BY MOUTH EVERY ACTIVE MORNING 30 MINUTES BEFORE BREAKFAST Indication: FOR STOMACH ULCER 6) SILDENAFIL CITRATE 100MG TAB TAKE ONE TABLET BY MOUTH EVERY ACTIVE DAY NEEDED TAKE 1 HOUR PRIOR TO SEXUAL ACTIVITY 7) TAMSULOSIN HCL 0.4MG CAP TAKE ONE CAPSULE BY MOUTH ONCE ACTIVE DAILY Active Non-VA Medications Status 1) Non-VA AMIODARONE HCL (PACERONE) 200MG TAB 200MG BY MOUTH ACTIVE EVERY DAY 2) Non-VA AMLODIPINE BESYLATE 10MG TAB 10MG BY MOUTH ONCE DAILY ACTIVE Indication: FOR HIGH BLOOD PRESSURE 3) Non-VA FUROSEMIDE 20MG TAB 20MG BY MOUTH ACTIVE 10 Total Medications ALLERGIES: AUGMENTIN, CHERRIES, LISINOPRIL LAST BP: 150/78 (03/19/2024 14:49) PERTINENT LABS: No data for HEMOGLOBIN A1C ++++++++++++++++++++++++++++++ ++++++++++++++++++++++++++++++ +++++++++++++++++++ Patient history, visual acuity, entrance testing, refraction and tonometry all performed now by exhibit technician and reviewed by attending provider. Dilation drops instilled by exhibit technician after angle assessment and dilation warning given with verbal consent obtained. ++++++++++++++++++++++++++++++ ++++++++++++++++++++++++++++++ +++++++++++++++++++ Final Rx: OD +0.25 -0.75 x 115 OS plano -0.75 x 095 Add: +2.25 SLE: Lids/Lashes: clear OU Conjunctiva: white and quiet OU Corneas: whorl keratopathy OU Iris: flat and clear OU Anterior Chamber: deep and quiet OU Angles: open OU Lens: PCIOL OU DFE: Vitreous: Syneresis OU C/D (Size and Rim Description) OD 0.20 pink & healthy OS 0.20 pink & healthy Macula OD flat, tr ERM OS flat and clear A/V: normal caliber OU Posterior Pole: clear OU Periphery: Flat and intact (-)holes, tears, detachments 360 OU Assessment/Plan: 1. Pseudophakia OU - excellent surgical results, monitor 2. regular astigmatism OU - order new bifocals and DVO sunwear 3. isolated episode of horizontal diplopia at night - completely resolved, full EOM on exam today. Pt ed to call immediately if diplopia recurs. RTC 1 year or earlier PRN patient [...] (local) and dispensed from another VA or [facility] facility (remote) as well as [...] whether with a VA or non-VA provider. JLV Link Data on this list may not be complete. Please check JLV. Allergies/ADRs (Tool #5) FACILITY ALLERGY/ADR -------- No Remote Allergy/ADR Data available for this patient [facility] AUGMENTIN [facility] CHERRIES [facility] LISINOPRIL Med Recon NoGlossary (Tool #1) INCLUDED IN THIS LIST: Alphabetical list of active outpatient prescriptions dispensed from this VA (local) and dispensed from another VA or [facility] facility (remote) as well as inpatient orders (local pending and active), local clinic medications, locally documented non-VA medications, and local prescriptions that have or been discontinued in the past 90 days. Non-VA Meds Last Documented On: Mar 19, 2024 NOTE The display of VA prescriptions dispensed from another [place] or [facility] facility (remote) is limited to active outpatient prescription entries matched to National Drug File at the originating site and may not include some items such as investigational drugs, compounds, etc. NOT INCLUDED IN THIS LIST: Medications self-entered by the patient into personal health records (i.e. [employer]) are NOT included in this list. Non-VA medications documented outside this [place], remote inpatient orders (regardless of status) and remote clinic medications are NOT included in this list. The patient and provider must always discuss medications the patient is taking, regardless of where the medication was dispensed or obtained. Non-VA AMIODARONE HCL (PACERONE) 200MG TAB TAKE ONE TABLET BY MOUTH QDaily Non-VA AMLODIPINE BESYLATE 10MG TAB TAKE ONE TABLET BY MOUTH ONCE DAILY Medication prescribed by Non-VA provider. Indication: FOR HIGH BLOOD PRESSURE OUTPT APIXABAN 5MG TAB (Status = Active) TAKE ONE TABLET BY MOUTH TWICE DAILY Rx# [id number] Last Released: 05/28/24 Qty/Days Supply: Rx Expiration Date: 08/11/24 Refills Remainin OUTPT ATORVASTATIN CALCIUM 20MG TAB (Status = Active) TAKE ONE TABLET BY MOUTH EVERY DAY FOR CHOLESTEROL Rx# [id number] Last Released: 05/28/24 Qty/Days Supply: Rx Expiration Date: 08/11/24 Refills Remainin OUTPT FINASTERIDE 5MG TAB (Status = Active) TAKE ONE TABLET BY MOUTH ONCE DAILY FOR PROSTATE Rx# [id number] Last Released: 05/28/24 Qty/Days Supply: Rx Expiration Date: 08/11/24 Refills Remainin Non-VA FUROSEMIDE 20MG TAB TAKE ONE TABLET BY MOUTH OUTPT LEVOTHYROXINE NA (SYNTHROID) 75MCG TAB (Status = Active) TAKE ONE TABLET BY MOUTH EVERY MORNING 30 MINUTES BEFORE BREAKFAST FOR THYROID TAKE ON AN EMPTY STOMACH WITH A FULL GLASS OF WATER Rx# [id number] Last Released: 03/22/24 Qty/Days Supply: Rx Expiration Date: 03/20/25 Refills Remainin Indication: FOR THYROID OUTPT OMEPRAZOLE 20MG EC CAP (Status = Active) TAKE TWO CAPSULES BY MOUTH EVERY MORNING 30 MINUTES BEFORE BREAKFAST FOR STOMACH ULCER Rx# [id number] Last Released: 03/22/24 Qty/ Supply: Rx Expiration Date: 08/11/24 Refills Remainin Indication: FOR STOMACH ULCER OUTPT SILDENAFIL CITRATE 100MG TAB (Status = Active) TAKE ONE TABLET BY MOUTH EVERY DAY NEEDED TAKE 1 HOUR PRIOR TO SEXUAL ACTIVITY Rx# [id number] Last Released: 03/22/24 Qty/Days Supply: Rx Expiration Date: 03/20/25 Refills Remainin OUTPT TAMSULOSIN HCL 0.4MG CAP (Status = Active) TAKE ONE CAPSULE BY MOUTH ONCE DAILY Rx# [id number] Last Released: 03/22/24 Qty/Days Supply: Rx Expiration Date: 09/16/24 Refills Remainin SUPPLIES /leo CUBA OD Siphon Operator Signed: 06/21/2024 15:01 BHAVANI CUBA [facility] [place] [facility] Jun 21, 2024 08:35 AM OPTOMETRY GLOST KILN OPERATOR NOTE: LOCAL TITLE: OPTOMETRY GLOST KILN OPERATOR NOTE STANDARD TITLE: OPTOMETRY GLOST KILN OPERATOR NOTE DATE OF NOTE: JUN 21, 2024@08:35 ENTRY DATE: JUN 21, 2024@08:36:01 AUTHOR: JAKY SANCHEZ COSIGNER: URGENCY: STATUS: COMPLETED Active problems - Computerized Problem List is the source for the followin. Exposure to potentially hazardous substance 2. Hypothyroidism 3. Diastolic heart failure 4. Chronic prostatitis 5. Long-term current use of anticoagulant 6. Gastroesophageal reflux disease 7. Low back pain 8. Paroxysmal atrial fibrillation (SNOMED CT [id number]) 9. Essential hypertension (SNOMED CT 08105189) 10. Hypercholesterolemia (SNOMED CT 15997857) 11. History of male erectile disorder (SNOMED CT 309042389) Active Outpatient Medications (including Supplies): Active Outpatient Medications Status 1) APIXABAN 5MG TAB TAKE ONE TABLET BY MOUTH TWICE DAILY ACTIVE 2) ATORVASTATIN CALCIUM 20MG TAB TAKE ONE TABLET BY MOUTH EVERY ACTIVE DAY FOR CHOLESTEROL 3) FINASTERIDE 5MG TAB TAKE ONE TABLET BY MOUTH ONCE DAILY FOR ACTIVE PROSTATE 4) LEVOTHYROXINE NA (SYNTHROID) 75MCG TAB TAKE ONE TABLET BY ACTIVE MOUTH EVERY MORNING 30 MINUTES BEFORE BREAKFAST TAKE ON AN EMPTY STOMACH WITH A FULL GLASS OF WATER Indication: FOR THYROID 5) OMEPRAZOLE 20MG EC CAP TAKE TWO CAPSULES BY MOUTH EVERY ACTIVE MORNING 30 MINUTES BEFORE BREAKFAST Indication: FOR STOMACH ULCER 6) SILDENAFIL CITRATE 100MG TAB TAKE ONE TABLET BY MOUTH EVERY ACTIVE DAY NEEDED TAKE 1 HOUR PRIOR TO SEXUAL ACTIVITY 7) TAMSULOSIN HCL 0.4MG CAP TAKE ONE CAPSULE BY MOUTH ONCE ACTIVE DAILY Active Non-VA Medications Status 1) Non-VA AMIODARONE HCL (PACERONE) 200MG TAB 200MG BY MOUTH ACTIVE EVERY DAY 2) Non-VA AMLODIPINE BESYLATE 10MG TAB 10MG BY MOUTH ONCE DAILY ACTIVE Indication: FOR HIGH BLOOD PRESSURE 3) Non-VA FUROSEMIDE 20MG TAB 20MG BY MOUTH ACTIVE 10 Total Medications Allergies: AUGMENTIN, CHERRIES, LISINOPRIL All medications including those prescribed by outside VA's, community providers, and all OTC meds were reviewed and reconciled with patient to the best of their abilities. This 88 year old MALE is seen today for a CEE. Medical, eye, personal, and social history are all reviewed and is contributory or is not contributory to today's visit. Optometry Insurance Account Manager Attending Provider Note: Date of Last Exam:06/18/2023 Location: [facility] Last Dr Darrion MD appt (04/14/2024 with new glasses.)Rx exp 04/14/2026 scanned to s. Chief Complaint:Doing well. I did have cataract surgery in the fall, and new glasses. However, I developed double vision a four days ago, with new glasses. It was intermittant, and horizontal.But, this is gone now. Also, I still get dark vision peripherally each morning (as before, but it clears shortly) Also, both eyes water a bit now. HISTORY AND REVIEW OF SYSTEMS: OHx: IOL OU OD 02/2024 OS 01/2024 (Dr Maier. Notes not avail in [facility]) refractive error OU (-) Pain: (-) ARELLANO: (+) Diplopia:One ocurrance 4 days ago. (-) Flashes: (+) Floaters:OU chronic, not new (-) Amaurosis Fugax/Tia's: (-) Eye Injury: (+) Eye Surgery:IOL OU 2023 (-) TBI (-) FOHx: DIABEIC: No LAST A1C: PERTINENT LABS: HEMOGLOBIN A1C TREND No data available NEW ALLERGIES TO REPORT: No EYE MEDICATION(S):NONE, not even post op cataract surgery. Current Wear:TRANSPOSED exp 03/2026 (scanned to [facility]) OD:Pl -0.50 x 125 OS:Pl -0.50 x 095 ADD:+2.25 CURRENT RX WITH [facility]: (Preop Cat surgery) Subjective: 05/2023 OD +2.50 -1.00 x 110 20/25-1 OS +1.75 -1.75 x 100 20/40-1 Add: +2.75 int add +1.50 DVA: ( )SC (x)CC ( )Phoropter ( )CL OD: 20/20+2 clears after blinking OS: 20/20 NVA OU: 20/20 16-18 MANIFEST REFRACTION(MRx): OD:+0.25 -0.75 x 115 20/15-1 variable when blinks OS:Pl -0.75 x 095 20/20+1 ADD:+2.25 OU prefers CVF: Appear FTFC OU EOMS: Appear Full OU Denies diplopia, after originally saying right gaze was double PUPILS: Appear ERRL(-)APD C TEST slight hypertropia CC/SC ? INTRAOCULAR PRESSURE (IOP) METHOD: Goldmann Time:10:43 OD:10 OS:10 ANTERIOR CHAMBER (AC): Penlight or slit lamp (if available) exam appears unremarkable. Pupils are dilated. Dilation and driving precautions reviewed with patient and patient expresses understanding. Medication: 1% Tropicamide, 2.5% Phenylephrine OU Time:10:44 Visual Imaging Performed Today:NONE Additional Comments:Wants same frames for bifocals. And wants DVO sunglasses. Was given mydriatic specs. /odilon/ JAKY SANCHEZ OPTOMETRY TECH Signed: 06/21/2024 10:49 JAKY SANCHEZ [facility]
--- OUTSIDE RECORDS SUMMARY | 2024-09-14 05:00 | XMS_ITS | Encounter Summary ---
Author Name [facility] Organization [facility] Address [address] [place] [address] Care Team Providers Care Community Nutrition Educator Name Role Phone FIDENCIO EDWARDS Primary Care [...] MEDICARE SUPPLEMEN JOVANNA Jun 26, 2007 PLAN [id number] ROSA FLANNERY PATIENT MEDICARE (WNR) MEDICARE (M) PART B May 26, 2007 PART B [id number] ROSA FLANNERY PATIENT MEDICARE (WNR) MEDICARE (M) PART A Dec 24, 2002 PART A [id number] ROSA FLANNERY PATIENT Selected Encounter This section includes the information on record at MD for the Encounter. Date/Time Encounter Type Encounter Description Reason Provider Source Sep 14, 2024 09:00 AM OFFICE O/P EST MOD 30 MIN PRIMARY CARE/MEDICINE ICD-10-CM Z77.29 Contact with and exposure to other hazardous substances FIDENCIO EDWARDS IHE Encounter Template Text not used by MD Assessments - Encounter Diagnoses This section includes the primary and secondary diagnoses documented for the Encounter. Date/Time Primary/Secondary Diagnosis Diagnosis Name Provider Source Dec 01, 2024 12:19 PM PRIMARY Contact with and exposure to other hazardous substances FIDENCIO EDWARDS [facility] [place] [facility] Dec 01, 2024 12:19 PM SECONDARY Chronic prostatitis YOLANDACOKAUSHIK GUTIERREZA [facility] [place] [facility] Dec 01, 2024 12:19 PM SECONDARY Essential (primary) hypertension YOLANDACOLOFIDENCIO [facility] [place] [facility] Dec 01, 2024 12:19 PM SECONDARY Gastro-esophageal reflux disease without esophagitis YOLANDACOLOFIDENCIO [facility] [place] [facility] Dec 01, 2024 12:19 PM SECONDARY Hypothyroidism, unspecified FURCOLO,FIDENCIO [facility] [place] 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 Dec 01, 2024 12:19 PM SECONDARY Male erectile disorder YOLANDACOLOFIDENCIO [facility] [place] [facility] Dec 01, 2024 12:19 PM SECONDARY Paroxysmal atrial fibrillation YOLANDACOLOFIDENCIO [facility] [place] [facility] Dec 01, 2024 12:19 PM SECONDARY Pure hypercholesterolemi a, unspecified FURCOLO,FIDENCIO [facility] [place] [facility] Dec 01, 2024 12:19 PM SECONDARY Unspecified diastolic (congestive) heart failure YOLANDACOLOKAUSIHKA [facility] [place] [facility] Plan of Treatment: Future Appointments (+ 6 months) and Future Tests (+/- 45 days) The Plan of Treatment section includes future care activities for the patient [facility] This section includes future appointments and future orders which are active, pending or scheduled. Future Appointments This section includes appointments that were scheduled to occur 6 months from the date of the Encounter, up to a maximum of 20 appointments. The data comes from all MD treatment facilities. Appointment Date/Time Appointment Type Appointme nt Facility Name September 30, 2024 09:00 AM AMBULATORY - REHAB MEDICIN E [facility] [place] [facility] Oct 26, 2024 11:00 AM AMBULATORY - REHAB MEDICIN E [facility] [place] [facility] Mar 15, 2025 09:00 AM [facility]AT[facility] Lab Results: +/- 30 days of the encounter This section includes the Chemistry and Hematology Lab Results on record with [facility] for the patient. Radiology Reports and Pathology Reports are provided separately, in subsequent sections. Lab Results This section contains the Chemistry/Hematology Results that were resulted 30 days before or 30 daysafter the date of the Encounter. Date/Time Source Result Type Result - Unit Interpretation Reference Range Specimen Type Comment Sep 08, 2024 08:50 AM [facility] TSH SERUM Specimen Type: SERUM No comment entered. Ordering Provider: FIDENCIO EDWARDS Report Released Date/Time: Mar 19, 2024 09:43 AM Reporting Lab: [facility] [address] Performing Lab: [facility] [address] [address] TSH 1.09 u[IU]/mL 0.35-4.94 Sep 08, 2024 08:50 AM [facility] LIPID PANEL FASTING SERUM Specimen Type: SERU M No comment entered. Ordering Provider: FIDENCIO EDWARDS Report Released Date/Time: Mar 19, 2024 09:43 AM Reporting Lab: [facility] [address] Performing Lab: [facility]ITALRD.[facility]TRN [facility] [address] [address] CHOLESTEROL 162 mg/dL TRIGLYCERIDE 63 mg/dL 0-150 LDL calculated 68 mg/dL 0-129 CHOL/HDL 2.0 HDL CHOLESTEROL 81 mg/dL >40 Sep 08, 2024 08:50 AM [facility] LIVER FUNCTION SERUM Specimen Type: SERUM No comment entered. Ordering Provider: FIDENCIO EDWARDS Report Released Date/Time: Mar 19, 2024 09:43 AM Reporting Lab: [facility] [address] [address] Performing Lab: [facility] [address] [facility] [address] PROTEIN,TOTAL 6.6 g/dL 6.4-8.3 ALBUMIN 3.9 g/dL 3.2-4.6 ALKALINE PHOSPHATASE 75 U/L 40-150 AST 36 U/L H 5-34 ALT 26 U/L BILIRUBIN, TOTAL 0.9 mg/dL 0.2-1.2 Sep 08, 2024 08:50 AM [facility] BASIC METABOLIC PANEL (fasting) SERUM Specime n Type: SERUM No comment entered. Ordering Provider: FIDENCIO EDWARDS Report Released Date/Time: Mar 19, 2024 09:43 AM Reporting Lab: [address] [address] Performing Lab: [address] [address] UREA NITROGEN 20 mg/dL 8-26 GLUCOSE 94 mg/dL 65-100 SODIUM 140 mmol/L 136-145 POTASSIUM 4.2 mmol/L 3.5-5.1 CHLORIDE 106 mmol/L 98-107 CO2 24 meq/L 23-31 CALCIUM 9.2 mg/dL 8.8-10 CREATININE, Serum 1.33 mg/dL H 0.72-1.25 eGFR(CKD-EPI 2020) 52 mL/min L >60 Sep 08, 2024 08:50 AM [facility] CBC BLOOD Specimen Type: BLOOD No comment entered. Ordering Provider: FIDENCIO EDWARDS Report Released Date/Time: Mar 19, 2024 09:43 AM Reporting Lab: [address] [address] Performing Lab: [address] [address] WBC 6.75 10*3/uL 4.50-11.00 RBC 4.47 10*6/uL 4.23-5.66 HGB 13.8 g/dL 12.8-17 HCT 41.3 39.2-50.4 MCV 92.4 fL 82-99 MCHC 33.4 g/dL 30.8-35.1 PLT 257 10*3/uL 140-360 MPV 11.2 fL 9.2-12.4 RDW-CV 15.3 12.0-16.0 MCH 30.9 pg 26.2-32.6 Vital Signs: All taken on the encounter date This section contains inpatient and outpatient Vital Signs collected on the date of the Encounter. Date/Time Temperature Pulse Blood Pressure Respiratory Rate SP02 Pain Height Weight Body Mass Index Source Sep 14, 2024 09:32 AM 136/78 [facility] [place] [facility] Sep 14, 2024 08:52 AM 97.8 49 156/67 16 97 0 160 28 [facility] [place] [facility] Social History: Smoking Status (Most [...] NEVER USED [facility] [place] [facility] Tobacco Use History This section includes a history of the smoking, or tobacco-related health factors, that were collected on or before the date of the Encounter. The data comes from the MD facility where the Encounter took place. Date/Time Smoking Status/Tobacco Use Comment F acmatthias Aug 01, 2022 10:30 AM VA-TOBACCO NEVER USED [facility] [place] [facility] Jul 03, 2021 01:00 PM VA-TOBACCO NEVER USED [facility] [place] [facility] Jun 16, 2020 08:30 AM VA-TOBACCO NEVER USED [facility] [place] [facility] Dec 07, 2018 01:47 PM VA-TOBACCO NEVER USED [facility] [place] [facility] Dec 15, 2017 08:52 AM VA-TOBACCO NEVER USED [facility] [place] [facility] Jun 02, 2017 03:31 PM LIFETIME NON-TOBACCO USER [facility] [place] [facility] Jun 04, 2016 08:53 AM LIFETIME NON-TOBACCO USER [facility] [place] [facility] May 09, 2015 09:21 AM LIFETIME NON-TOBACCO USER . [facility] [place] [facility] Oct 27, 2012 10:50 AM LIFETIME NON-TOBACCO USER [facility] [place] [facility] Encounter Notes: All associated encounter notes This section contains the clinical notes associated to the Encounter. Date/Time Encounter Note(s) Provider Source Sep 14, 2024 09:11 AM PHYSICIAN NOTE: LOCAL TITLE: MD NOTE STANDARD TITLE: PHYSICIAN NOTE DATE OF NOTE: SEP 14, 2024@09:11 ENTRY DATE: SEP 14, 2024@09:11:19 AUTHOR: FIDENCIO EDWARDS COSIGNER: URGENCY: STATUS: COMPLETED BRY FLANNERY MD is a 88 year old WHITE MALE who is being seen today in primary care for routine follow up. CARE TEAM Community Primary Care Provider: all have retired MD Specialists: Community Specialists: pricing coordinator--Ricky Macias M.D, Fadi TATE- Dr. Bernal urology- Dr. Villa Aguilar HISTORY PERIOD OF SERVICE - ERA SERVICE CONNECTED % - NONE FOUND HISTORY OF PRESENT ILLNESS Patient presents today for routine follow-up: doing well had echo and CXR- cards [employer]opmed pacemaker 's sister is in her late 50s dying of ovarian ca RELEVANT PAST MEDICAL HISTORY Active problems - Computerized Problem List is the source for the followin. Exposure to potentially hazardous substance Connect Snomed Code to ICD 10 Code refer to note dated 02/19/23 2. Hypothyroidism 3. Diastolic heart failure 4. Chronic prostatitis 5. Long-term current use of anticoagulant 6. Gastroesophageal reflux disease 7. Low back pain 8. Paroxysmal atrial fibrillation (SNOMED CT 325441857) s/p ablation x 2, now on amiodarone pricing coordinator--Ricky Macias M.D 9. Essential hypertension (SNOMED CT 55541838) 10. Hypercholesterolemia (SNOMED CT 61320639) 11. 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 outpatient surgery [facility] (did GI- scopes)- stopped at [...] MOUTH EVERY ACTIVE DAY FOR CHOLESTEROL 3) stoppedFINASTERIDE 5MG TAB TAKE ONE TABLET BY MOUTH ONCE DAILY FOR ACTIVE PROSTATE 4) LEVOTHYROXINE NA 75MCG TAB TAKE ONE TABLET BY MOUTH EVERY ACTIVE MORNING 30 MINUTES BEFORE BREAKFAST TAKE ON AN EMPTY STOMACH WITH A FULL GLASS OF WATER Indication: FOR THYROID 5) reduced to 20 mg daily OMEPRAZOLE 20MG EC CAP TAKE TWO CAPSULES BY MOUTH EVERY ACTIVE (S) MORNING 30 MINUTES BEFORE BREAKFAST Indication: FOR [...] - - - - - - B/P: 156/67 (09/14/2024 08:52)- home BP 136/80 pulse: 49 (09/14/2024 08:52) resp: 16 (09/14/2024 08:52) temp: 97.8 F [36.6 C] (09/14/2024 08:52) Ht: 63 in [160.0 cm] (08/18/2023 15:27) Wgt: 160 lb [72.57 kg] (09/14/2024 08:52) BMI: BMI: 28.4 Exam: - - - - - - - General: A&O x 3, no acute distress, normal affect and mood Neck: normal thyroid, normal carotids- no bruits CV: RRR S1S2, no murmur Resp: LCTA bilat, no wheezing, rales or rhonchi Neuro: grossly intact, no visible tremor, normal memory and speech Extremities: normal movement of extremities, normal gait, normal strength some LE edema RECENT LABS Your recent test results are as follows: LAB CHEMISTRY & HEMATOLOGY Collection DT Specimen Test Name Result Units Ref Range 09/08/2024 08:50 BLOOD WBC 6.75 10*3/uL 4.50 - 11.00 RBC 4.47 10*6/uL 4.23 - 5.66 HGB 13.8 g/dL 12.8 - 17 HCT 41.3 % 39.2 - 50.4 MCV 92.4 fl 82 - 99 MCH 30.9 pg 26.2 - 32.6 MCHC 33.4 g/dL 30.8 - 35.1 RDW-CV 15.3 % 12.0 - 16.0 PLT 257 10*3/uL 140 - 360 MPV 11.2 fL 9.2 - 12.4 09/08/2024 08:50 SERUM TSH 1.09 uIU/mL 0.35 - 4.94 09/08/2024 08:50 SERUM CALCIUM 9.2 mg/dL 8.8 - 10 CREATININE, Serum 1.33 H mg/dL 0.72 - 1.25 eGFR(CKD-EPI 2020 52 L mL/min Ref: >=60 SODIUM 140 mmol/L 136 - 145 POTASSIUM 4.2 mmol/L 3.5 - 5.1 CHLORIDE 106 mmol/L 98 - 107 CO2 24 mEq/L 23 - 31 UREA NITROGEN 20 mg/dL 8 - 26 GLUCOSE 94 mg/dL 65 - 100 PROTEIN,TOTAL 6.6 g/dL 6.4 - 8.3 ALBUMIN 3.9 g/dL 3.2 - 4.6 ALK DOMINIC 75 U/L 40 - 150 AST 36 H U/L 5 - 34 BILIRUBIN, TOTAL 0.9 mg/dL 0.2 - 1.2 CHOLESTEROL 162 mg/dL <7 - 199 TRIGLYCERIDE 63 mg/dL 0 - 150 LDL calculated 68 mg/dL 0 - 129 CHOL/HDL 2.0 ALT 26 U/L <6 - 55 HDL CHOLESTEROL 81 mg/dL Ref: >=40 ASSESSMENT AND PLAN Active problems - Computerized Problem List is the source for the followin. Exposure to potentially hazardous substance Connect Snomed Code to ICD 10 Code refer to note dated 02/19/23 2. Hypothyroidism- at goal 3. Diastolic heart failure- sees cardiology. needs better BP control 4. Chronic prostatitis 5. Long-term current use of anticoagulant- no bleeding, no falls 6. Gastroesophageal reflux disease- sees GI for endoscopy- on PPI once daily- changed RX on med list 7. Low back pain 8. Paroxysmal atrial fibrillation (SNOMED CT 997904149) s/p ablation x 2, now on amiodarone pricing coordinator--Ricky Macias M.D. had one episode of a fib into 200 rate and cardiologost had him load with amiodarone 200 mg every 4 hrs x 3. happened after coffee. now no longer drinks coffee 9. Essential hypertension (SNOMED CT 68769162)- elevated today- checks at home - usually <130/80 10. Hypercholesterolemia (SNOMED CT 81340332) 11. History of male erectile disorder (SNOMED CT 386166063) 12. bradycardia- was evaluated for a pacemaker- mainly for dyspnea- opts to not get one. is able to get pulse up to 80s with exercise. no dizziness or presyncope FOLLOW UP f/u in 6 mo VISIT TYPE: a MODERATE complexity visit where 30 minutes was spent in direct patient care, review of records and documentation. /odilon/ FIDENCIO EDWARDS D.O. PHYSICIAN Signed: 09/14/2024 09:37 FIDENCIO EDWARDS [place] [facility] [place] [facility] Sep 14, 2024 08:49 AM PREVENTIVE MEDICINE NURSING NOTE: LOCAL TITLE: CLINICAL REMINDERS/NURSING STANDARD TITLE: PREVENTIVE MEDICINE NURSING NOTE DATE OF NOTE: SEP 14, 2024@08:49 ENTRY DATE: SEP 14, 2024@08:49:18 AUTHOR: YOGESH TALBERT EXP COSIGNER: URGENCY: STATUS: COMPLETED Advance Directive Screen MH AD: Patient has an up-to-date Advance Directive at an outside, non-va facility and was asked to forward a copy to his/her clinician. Suicide Screen: C-SSRS Screening [facility] Suicide Severity Rating Scale (C-SSRS) screener 1. Over the past month, have you [...] Not worried about housing near future [facility] reports the following: Within the past 12 months, you worried whether your food would run out before you got money to buy more. Never true Within the past 12 months, the food you bought just didn't last and you didn't have money to get more. Never true /odilon/ YOGESH TLABERT LPN License Practical Nurse Signed: 09/14/2024 08:52 [facility]BERT [facility]
--- OUTSIDE RECORDS SUMMARY | 2024-09-30 05:00 | XMS_ITS ---
Author Name [facility] [place] Organization [facility] [place] [facility] [place] Address [address] [place] [address] Care Team Providers Care Clinical Research Director Name Role Phone FIDENCIO EDWARDS Primary Care [...] MEDICARE SUPPLEMEN JOVANNA Jun 26, 2007 PLAN [id number] ROSA FLANNERY PATIENT MEDICARE (WN) MEDICARE (M) PART B May 26, 2007 PART B [id number] ROSA FLANNERY PATIENT MEDICARE (WNR) MEDICARE (M) PART A Dec 24, 2002 PART A [id number] ROSA FLANNERY PATIENT Selected Encounter This section includes the information on record at [place] for the Encounter. Date/Time Encounter Type Encounter Description Reason Provider Source September 30, 2024 09:00 AM HEARING AID FITTING/CHECKIN G AUDIOLOGY ICD-10-CM H90.3 Sensorineural hearing loss, bilateral SAVANAH TORIBIO Encounter Template Text not used by [facility] Assessments - Encounter Diagnoses This section includes the primary and secondary diagnoses documented for the Encounter. Date/Time Primary/Secondary Diagnosis Diagnosis Name Provider Source Dec 16, 2024 09:38 AM PRIMARY Sensorineural hearing loss, bilateral SENIOR,SAVANAH Peralta [facility] Plan of Treatment: Future Appointments (+ 6 months) and Future Tests (+/- 45 days) The Plan of Treatment section includes future care activities for the patient from all [place] treatmentfacilities. This section includes future appointments and future orders which are active, pending or scheduled. Future Appointments This section includes appointments that were scheduled to occur 6 months from the date of the Encounter, up to a maximum of 20 appointments. The data comes from all [place] treatment facilities. Appointment Date/Time Appointment Type Appointme nt Facility Name Oct 26, 2024 11:00 AM AMBULATORY - REHAB MEDICIN E [facility] Mar 15, 2025 09:00 AM AMBULATORY - MEDICINE [facility] Lab Results: +/- 30 days of the encounter This section includes the Chemistry and Hematology Lab Results on record with [place] for the patient. Radiology Reports and Pathology Reports are provided separately, in subsequent sections. Lab Results This section contains the Chemistry/Hematology Results that were resulted 30 days before or 30 daysafter the date of the Encounter. Date/Time Source Result Type Result - Unit Interpretation Reference Range Specimen Type Comment Sep 08, 2024 08:50 AM [facility] LIPID PANEL FASTING SERUM Specimen Type: SERUM No comment entered. Ordering Provider: FIDENCIO EDWARDS Report Released Date/Time: Mar 19, 2024 09:43 AM Reporting Lab: [facility] [address] [facility] [address] Performing Lab: [facility] [address] [facility] [address] CHOLESTEROL 162 mg/dL TRIGLYCERIDE 63 mg/dL 0-150 LDL calculated 68 mg/dL 0-129 CHOL/HDL 2.0 HDL CHOLESTEROL 81 mg/dL >40 Sep 08, 2024 08:50 AM [facility] BASIC METABOLIC PANEL (fasting) SERUM Specime n Type: SERUM No comment entered. Ordering Provider: FIDENCIO EDWARDS Report Released Date/Time: Mar 19, 2024 09:43 AM Reporting Lab: [facility] [address] [facility] [address] Performing Lab: [facility] [address] [facility] [address] UREA NITROGEN 20 mg/dL 8-26 GLUCOSE 94 mg/dL 65-100 SODIUM 140 mmol/L 136-145 POTASSIUM 4.2 mmol/L 3.5-5.1 CHLORIDE 106 mmol/L 98-107 CO2 24 meq/L 23-31 CALCIUM 9.2 mg/dL 8.8-10 CREATININE, Serum 1.33 mg/dL H 0.72-1.25 eGFR(CKD-EPI 2020) 52 mL/min L >60 Sep 08, 2024 08:50 AM [facility] TSH SERUM Specimen Type: SERUM No comment entered. Ordering Provider: FIDENCIO EDWARDS Report Released Date/Time: Mar 19, 2024 09:43 AM Reporting Lab: [facility] [address] [facility] [address] Performing Lab: [address] [address] TSH 1.09 u[IU]/mL 0.35-4.94 Sep 08, 2024 08:50 AM [facility] LIVER FUNCTION SERUM Specimen Type: SERUM No comment entered. Ordering Provider: FIDENCIO EDWARDS Report Released Date/Time: Mar 19, 2024 09:43 AM Reporting Lab: [facility] [address] [facility] [address] Performing Lab: [address] [address] PROTEIN,TOTAL 6.6 g/dL 6.4-8.3 ALBUMIN 3.9 g/dL 3.2-4.6 ALKALINE PHOSPHATASE 75 U/L 40-150 AST 36 U/L H 5-34 ALT 26 U/L BILIRUBIN, TOTAL 0.9 mg/dL 0.2-1.2 Sep 08, 2024 08:50 AM [facility] CBC BLOOD Specimen Type: BLOOD No comment entered. Ordering Provider: FIDENCIO EDWARDS Report Released Date/Time: Mar 19, 2024 09:43 AM Reporting Lab: [place] [facility] [place] [facility] [address] [facility] [address] Performing Lab: [place] [facility] [place] [facility] [address] [facility] [address] WBC 6.75 10*3/uL 4.50-11.00 RBC 4.47 10*6/uL 4.23-5.66 HGB 13.8 g/dL 12.8-17 HCT 41.3 39.2-50.4 MCV 92.4 fL 82-99 MCHC 33.4 g/dL 30.8-35.1 PLT 257 10*3/uL 140-360 MPV 11.2 fL 9.2-12.4 RDW-CV 15.3 12.0-16.0 MCH 30.9 pg 26.2-32.6 Social History: Smoking Status (Most current) and Tobacco Use (All prior to encounter date) This section includes the most current, and the historical, smoking and tobacco- related health factors from the [place] facility where the Encounter took place. Current Smoking Status This section includes the most current smoking, or tobacco-related health factor, from the [place] facility where the Encounter took place. Date/Time Current Smoking Status Comment Romana gregg Aug 18, 2023 03:30 PM VA-TOBACCO NEVER USED [place] [facility] [place] [facility] Tobacco Use History This section includes a history of the smoking, or tobacco-related health factors, that were collected on or before the date of the Encounter. The data comes from the [place] facility where the Encounter took place. Date/Time Smoking Status/Tobacco Use Comment F acmatthias Aug 01, 2022 10:30 AM VA-TOBACCO NEVER USED [place] [facility] [place] [facility] Jul 03, 2021 01:00 PM VA-TOBACCO NEVER USED [place] [facility] [place] [facility] Jun 16, 2020 08:30 AM VA-TOBACCO NEVER USED [place] [facility] [place] [facility] Dec 07, 2018 01:47 PM VA-TOBACCO NEVER USED [place] [facility] [place] [facility] Dec 15, 2017 08:52 AM VA-TOBACCO NEVER USED [place] [facility] [place] [facility] Jun 02, 2017 03:31 PM LIFETIME NON-TOBACCO USER [place] [facility] [place] [facility] Jun 04, 2016 08:53 AM LIFETIME NON-TOBACCO USER [place] [facility] [place] [facility] May 09, 2015 09:21 AM LIFETIME NON-TOBACCO USER . [place] [facility] [place] [facility] Oct 27, 2012 10:50 AM LIFETIME NON-TOBACCO USER [facility] Encounter Notes: All associated encounter notes This section contains the clinical notes associated to the Encounter. Date/Time Encounter Note(s) Provider Source September 30, 2024 07:36 AM AUDIOLOGY E & M NOTE: LOCAL TITLE: AUDIOLOGY CLINIC STANDARD TITLE: AUDIOLOGY E & M NOTE DATE OF NOTE: SEPTEMBER 30, 2024@07:36 ENTRY DATE: SEPTEMBER 30, 2024@07:36:35 AUTHOR: SAVANAH TORIBIO COSIGNER: URGENCY: STATUS: COMPLETED AUDIOLOGY CLINIC Has ADDENDA Dx CODE: H90.3-Sensorineural Hearing Loss, Bilateral APPOINTMENT TYPE: Hearing Re-Evaluation and Hearing Aid Selection BACKGROUND/HISTORY: was seen today for a hearing re-evaluation and hearing aid selection appointment, unaccompanied. He was fit on 10/02/21 with PHONAK VIRTO M90 Sachin and reports a decline in benefit from these devices. He notes that the left device has been making his ear sore. He is eligible for new hearing aids through the [place] due to the age of the current devices. His last hearing evaluation was on 08/30/21 and he believes his hearing has declined somewhat since then. He denies tinnitus and vertigo. Medical history includes: Active problems - Computerized Problem List is the source for the followin. Exposure to potentially hazardous substance 2. Hypothyroidism 3. Diastolic heart failure 4. Chronic prostatitis 5. Long-term current use of anticoagulant 6. Gastroesophageal reflux disease 7. Low back pain 8. Paroxysmal atrial fibrillation (SNOMED CT 741201457) 9. Essential hypertension (SNOMED CT 32357877) 10. Hypercholesterolemia (SNOMED CT 84772722) 11. History of male erectile disorder (SNOMED CT 389025340) ASSESSMENT: Results of today's testing are as follows: Otoscopy was WNL bilaterally. Normal tympanograms obtained bilaterally. Pure tone audiometric testing under headphones revealed moderate sloping to severe sensorineural hearing loss from 250-8000 Hz bilaterally. SRT WORD RECOGNITION (Recorded [place] CNC 1/2 Word List) Right 65dBHL 60% @ 90dBHL/65dBm Left 65dBHL 28% @ 90dBHL/65dBm Word recognition in the left ear has decreased compared to a score of 60% at 90dBHL/65dBm in 202. Thresholds in the left ear have worsened by 15dBHL at 3000 & 6000 Hz. Hearing in the right ear remains stable. HEARING AID CHECK: Both hearing aids were cleaned and checked, and found to be in good working order. Wax guards were replaced and microphones were cleared of debris. Hearing aids were reprogrammed to today's audiogram. HEARING AID SELECTION: Different hearing aid options were discussed. He is interested in technology similar to his previous hearing aids. Discussed rechargeable vs standard batteries. would prefer to remain with Phonak devices, and since [employer] does not have custom rechargeable devices on contract, he decided to remain with 312 batteries. PHONAK VIRTO P90 HS's were selected and ordered in [facility]. With [place]'s verbal consent, earmold impressions were taken bilaterally without incident. EDUCATION/COUNSELING: The patient was counseled re: today's hearing test results. He demonstrated satisfactory understanding of the education and plan, and was given the opportunity to ask questions throughout today's visit. PLAN: 1. RTC in 3-4 weeks for a 60 minute hearing aid fitting appointment. 2. Hearing re-evaluation in 3-5 years, or sooner if change in hearing occurs. Patient Education Education provided on the following topics: Hearing test results Education provided to: P Response to Education: VU Keita ____ Patient P Family F Significant Other SO Verbalizes Understanding VU Returns Demonstration RD Performs Independently PI Lacks Comprehension LC Refused Education RE Not Applicable NA /RAIZA Bello, [facility]-A STAFF MEDICAL APPLIANCE MAKER Signed: 09/30/2024 11:57 10/14/2024 ADDENDUM STATUS: COMPLETED Hearing aids received and certified, upcoming appointment scheduled on 10/26/2024. /odilon/ SOCO RAYGOZA Audiology Health Protector Plate Attacher Signed: 10/14/2024 14:37 SAVANAH TORIBIO [facility]
--- OUTSIDE RECORDS SUMMARY | 2024-10-26 07:00 | XMS_ITS | Encounter Summary ---
Author Name [facility] Organization [facility] [place] Address [address] [place] [address] Care Team Providers Care Anthropology Faculty Member Name Role Phone FIDENCIO EDWARDS Primary Care [...] MEDICARE SUPPLEMEN JOVANNA Jun 26, 2007 PLAN [id number] ROSA FLANNERY PATIENT MEDICARE (WNR) MEDICARE (M) PART B May 26, 2007 PART B [id number] ROSA FLANNERY PATIENT MEDICARE (WNR) MEDICARE (M) PART A Dec 24, 2002 PART A [id number] ROSA FLANNERY PATIENT Selected Encounter This section includes the information on record at [place] for the Encounter. Date/Time Encounter Type Encounter Description Reason Provider Source Oct 26, 2024 11:00 AM HEARING SERVICE AUDIOLOGY ICD-10-CM Z46.1 Encounter for fitting and adjustment of hearing aid SAVANAH TORIBIO Encounter Template Text not used by [place] Assessments - Encounter Diagnoses This section includes the primary and secondary diagnoses documented for the Encounter. Date/Time Primary/Secondary Diagnosis Diagnosis Name Provider Source Oct 26, 2024 11:41 AM PRIMARY Encounter for fitting and adjustment of hearing aid SAVANAH TORIBIO [place] [facility] [place] [facility] Oct 26, 2024 11:41 AM SECONDARY Sensorineural hearing loss, bilateral SAVANAH TORIBIO [place] [facility] [place] [facility] Plan of Treatment: Future Appointments (+ 6 months) and Future Tests (+/- 45 days) The Plan of Treatment section includes future care activities for the patient from all [place] treatment[facility]. This section includes future appointments and future orders which are active, pending or scheduled. Future Appointments This section includes appointments that were scheduled to occur 6 months from the date of the Encounter, up to a maximum of 20 appointments. The data comes from all [place] treatment facilities. Appointment Date/Time Appointment Type Appointme nt Facility Name Mar 15, 2025 09:00 AM [facility]UL[facility] [place] [facility] Social History: Smoking Status (Most current) [...] 18, 2023 03:30 PM VA-TOBACCO NEVER USED [place] [facility] [place] [facility] Tobacco Use History This section includes a history of the smoking, or tobacco-related health factors, that were collected on or before the date of the Encounter. The data comes from the [place] facility where the Encounter took place. Date/Time Smoking Status/Tobacco Use Comment F acmatthias Aug 01, 2022 10:30 AM VA-TOBACCO NEVER USED [place] [facility] [place] [facility] Jul 03, 2021 01:00 PM VA-TOBACCO NEVER USED [place] [facility] [place] [facility] Jun 16, 2020 08:30 AM VA-TOBACCO NEVER USED [place] [facility] [place] [facility] Dec 07, 2018 01:47 PM VA-TOBACCO NEVER USED [place] [facility] [place] [facility] Dec 15, 2017 08:52 AM VA-TOBACCO NEVER USED [place] [facility] [place] [facility] Jun 02, 2017 03:31 PM LIFETIME NON-TOBACCO USER [place] [facility] [place] [facility] Jun 04, 2016 08:53 AM LIFETIME NON-TOBACCO USER [place] [facility] [place] [facility] May 09, 2015 09:21 AM LIFETIME NON-TOBACCO USER . [place] [facility] [place] [facility] Oct 27, 2012 10:50 AM LIFETIME NON-TOBACCO USER [place] [facility] [place] [facility] Encounter Notes: All associated encounter notes This section contains the clinical notes associated to the Encounter. Date/Time Encounter Note(s) Provider Source Oct 26, 2024 07:23 AM AUDIOLOGY E & M NO TE: [facility] TITLE: AUDIOLOGY CLINIC STANDARD TITLE: AUDIOLOGY E & M NOTE DATE OF NOTE: OCT 26, 2024@07:23 ENTRY DATE: OCT 26, 2024@07:23:30 AUTHOR: SAVANAH TORIBIO COSIGNER: URGENCY: STATUS: COMPLETED AUDIOLOGY CLINIC Has ADDENDA Dx CODE: Z46.1- Encounter for Fitting/Programming Hearing Aid(s); H90.3- Sensorineural Hearing Loss, Bilateral APPOINTMENT TYPE: Hearing Aid Fitting SUBJECTIVE (S): The patient was seen today for hearing aid fitting and issuance, unaccompanied. He had previously been evaluated and found to exhibit significant hearing loss for which amplification was recommended. He is a previous user of hearing aids, and was fit on 10/02/21 with PHONAK VIRTO M90 Sachin. How does the patient best learn? Verbal instruction, demonstration Does the patient have any cultural and yazidi beliefs, emotional barriers, physical or cognitive limitations, and communication barriers which may impact his ability to learn? No Desire and motivation to learn? Good OBJECTIVE (O): Physical fit of hearing aids was good. Patient verified comfort. Verification of an appropriate acoustic response was obtained using Real Ear measurements (speech mapping) and NAL-NL2 targets. The patient reported good subjective benefit as well. Feedback configuration manager was run. Hearing aids were found to be meeting targets adequately and MPO was not exceeding estimated UCL. Settings stored in [facility]. ASSESSMENT (A): The following devices were issued: Make: PHONAK Model: VIRTO P90 HS Right Serial Number: [id number] Left Serial Number: [id number] Battery size: 312 Warranty ends: 11/10/27 Trial Period ends: 04/09/25 Domes/wax guards: Cerustop Program(s): Automatic Button(s): Short press= Synced VC, R- Raise, L- Lower Long press= Program Extra-long press= Power on/off Fitting Formula: NAL-NL2 Remote Programming: HAs are capable Bluetooth: not interested Counseling was completed throughout todays appointment using a standardized curriculum that includes but is not limited to; realistic expectations with amplification in adverse listening environments, acclimatization to own voice and environmental sounds (following real-ear measurements), the importance of consistent use of amplification, proper insertion/removal, care and maintenance (including wax guards/domes if applicable), signal and alerts of devices, and charging/batteries. The was provided the opportunity to practice in office and reports confidence/understanding in all items reviewed. Time Spent= 20 minutes The patient was informed of and signed/agreed to [place] policy on hearing aid issuance: Yes Users are responsible for the maintenance and security of their devices. Determination of need to replace a hearing aid is made by the [place] alternative energy technician. Hearing aids will not be replaced in cases of neglect, abuse, or excessive loss. Items issued are for personal use only. Prognosis for successful hearing aid use is good. PLAN (P): 1. Follow-up for programming/adjustments as needed. 2. The International Outcome Inventory-Hearing Aids (IOI-ARELLANO) will be mailed to the in four weeks. He was asked to complete and mail back to clinic after completion. Patient Education Education provided on the following topics: Hearing aid use, care, maintenance Education provided to: P Response to Education: DOTTY AMBRIZ, PI Keita Patient P Family F Significant Other SO Verbalizes Understanding VU Returns Demonstration RD Performs Independently PI Lacks Comprehension LC Refused Education RE Not Applicable NA /RAIZA Bello, [facility]-A STAFF INSPECTOR SUBASSEMBLIES Signed: 10/26/2024 11:41 12/09/2024 ADDENDUM STATUS: COMPLETED returned IOI-ARELLANO Outcome Measure to the clinic via mail with an overall score of 25 Based on this score: i. No follow-up call is indicated _XX_ ii. Follow-up call is indicated and fitting clinician will be notified __ /odilon/ SOCO RAYGOZA Audiology Health Manager Of Financial Signed: 12/09/2024 10:59 SAVANAH TORIBIO [place] [facility]
--- OUTSIDE RECORDS SUMMARY | 2025-01-26 02:42 | XMS_ITS | Continuity of Care Document ---
Author Name [facility] Organization [facility] Care Team Providers Care Real Estate Consultant Name Role Phone [facility] Unavailable Unavailable Problems Combined list of problems from Department of Defense and Veterans Affairs facilities. It does not include entries that were removed or entered in error. Problem Status Onset Date Problem Type Date of Resolution Comments Source Chronic prostatitis Active Condition [facility] Diastolic heart failure Active Condition [facility] Essential hypertension (SNOMED CT 65334087) Active Condition [facility] Exposure to potentially hazardous substance Active Condition Aug 06, 2023 Entered By: RAVEN MADRID EN A Comment: Connect Snomed Code to ICD 10 Code refer to note dated 02/19/23 [facility] Gastroesophageal reflux disease Active Condition [facility] History of male erectile disorder (SNOMED CT 813683561) Active Condition [facility] Hypercholesterolemia (SNOMED CT 18395243) Active Condition [facility] Hypothyroidism Active Condition [facility] Long-term current use of anticoagulant Active Condition [facility] Low back pain Active Condition [facility] Paroxysmal atrial fibrillation (SNOMED CT 678979527) Active Condition Mar 19, 2024 Entered By: FIDENCIO EDWARDS Comment: s/p ablation x 2, now on [id number] Entered By: 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.D [facility] Diagnosis: ICD-10-CM Z46.1 Encounter for fitting and adjustment of hearing aid Active Diagnosis [facility] Diagnosis: ICD-10-CM H90.3 Sensorineural hearing loss, bilateral Active Diagnosis [facility] Diagnosis: ICD-10-CM Z77.29 Contact with and exposure to other hazardous substances Active Diagnosis [facility] Diagnosis: ICD-10-CM Z04.89 Encounter for examination and observation for oth reasons Active Diagnosis [facility] Diagnosis: ICD-10-CM Z46.0 Encounter for fit/adjst of spectacles and contact lenses Active Diagnosis [facility] Diagnosis: ICD-10-CM Z96.1 Presence of intraocular lens Active Diagnosis [facility] Diagnosis: ICD-10-CM E03.9 Hypothyroidism, unspecified Active Diagnosis [facility] Diagnosis: ICD-10-CM I48.0 Paroxysmal atrial fibrillation Active Diagnosis [facility] Medications Combined list of outpatient medications from Department of Defense and Veterans Affairs facilities.Medications provided include 1) outpatient medications from the last 15 months, and 2) patient-reported medications. Medication Details Route Status Patient Instructions Prescription Expires Prescription Number Last Dispense Date Ordering Provider Order Date Order Qty Source AMIODARONE HCL (PACERONE) 200MG TAB TAKE ONE TABLET BY MOUTH QD ORAL ACTIVE RAISA NIETO [facility] AMLODIPINE BESYLATE 10MG TAB TAKE ONE TABLET BY MOUTH ONCE DAILY ORAL ACTIVE FURCOLO,T PARKER 2023 [facility] APIXABAN 5MG TAB TAKE ONE TABLET BY MOUTH TWICE DAILY ORAL ACTIVE 08/31/2025 [id number] 5 FURCOLO,T PARKER 2024 180 [facility] APIXABAN 5MG TAB TAKE ONE TABLET BY MOUTH TWICE DAILY ORAL DISCONT INUED 08/11/2024 [id number] 5 RAISA NIETO AMMED JAWED 2023 180 [facility] ATORVASTATI N CA 20MG TAB TAKE ONE TABLET BY MOUTH EVERY DAY FOR CHOLESTE ROL ORAL ACTIVE 08/31/2025 [id number] 5 FURCOLO,T PARKER 2024 90 [facility] ATORVASTATI N CA 20MG TAB TAKE ONE TABLET BY MOUTH EVERY DAY FOR CHOLESTE ROL ORAL DISCONT INUED 08/11/2024 [id number] 5 [facility] 2023 90 [facility] FINASTERIDE 5MG TAB TAKE ONE TABLET BY MOUTH ONCE DAILY FOR PROSTATE ORAL DISCONT INUED BY PROVIDE R 08/31/2025 [id number] 5 FURCOLO,T PARKER 2024 90 [facility] FINASTERIDE 5MG TAB TAKE ONE TABLET BY MOUTH ONCE DAILY FOR PROSTATE ORAL DISCONT INUED 08/11/2024 [id number] 5 [facility] 2023 90 [facility] FUROSEMIDE 20MG TAB TAKE ONE TABLET BY MOUTH ORAL ACTIVE FURCOLO,T PARKER 2023 [facility] LEVOTHYROXI NE NA 75MCG TAB TAKE ONE TABLET BY MOUTH EVERY MORNING 30 MINUTES BEFORE BREAKFAS T FOR THYROID TAKE ON AN EMPTY STOMACH WITH A FULL GLASS OF WATER ORAL ACTIVE 03/20/2025 [id number] 5 FURCOLO,T PARKER 2023 90 [facility] LEVOTHYROXI NE NA 75MCG TAB (SYNTHROID) TAKE ONE TABLET BY MOUTH EVERY MORNING 30 MINUTES BEFORE BREAKFAS T FOR THYROID TAKE ON AN EMPTY STOMACH WITH A FULL GLASS OF WATER ORAL DISCONT INUED 04/07/2024 [id number] [facility] JAWED 2022 90 [facility] OMEPRAZOLE 20MG CAP,EC TAKE ONE CAPSULE BY MOUTH EVERY MORNING 30 MINUTES BEFORE BREAKFAS T FOR STOMACH ULCER ORAL HOLD 09/15/2025 [id number] FURCOLO,T PARKER 2024 90 [facility] OMEPRAZOLE 20MG CAP,EC TAKE TWO CAPSULES BY MOUTH EVERY MORNING 30 MINUTES BEFORE BREAKFAS T FOR STOMACH ULCER ORAL DISCONT INUED (EDIT) 08/31/2025 [id number] 5 FURCOLO,T PARKER 2024 180 [facility] OMEPRAZOLE 20MG CAP,EC TAKE TWO CAPSULES BY MOUTH EVERY MORNING 30 MINUTES BEFORE BREAKFAS T FOR STOMACH ULCER ORAL DISCONT INUED 08/11/2024 [id number] 5 RAISA NIETO AMBRAD JAWED 2023 180 [facility] SILDENAFIL CITRATE 100MG TAB TAKE ONE TABLET BY MOUTH EVERY DAY NEEDED TAKE 1 HOUR PRIOR TO SEXUAL ACTIVITY ORAL ACTIVE 03/20/2025 [id number] 5 FURCOLO,T PARKER 2023 18 [facility] SILDENAFIL CITRATE 100MG TAB TAKE ONE TABLET BY MOUTH EVERY DAY NEEDED TAKE 1 HOUR PRIOR TO SEXUAL ACTIVITY ORAL DISCONT INUED 02/20/2024 [id number] 4 RAISA NIETO AMBRAD JAWED 2022 6 [facility] TAMSULOSIN HCL 0.4MG CAP TAKE ONE CAPSULE BY MOUTH ONCE DAILY ORAL ACTIVE 08/31/2025 [id number] 5 FURCOLO,T PARKER 2024 90 [facility] TAMSULOSIN HCL 0.4MG CAP TAKE ONE CAPSULE BY MOUTH ONCE DAILY ORAL DISCONT INUED 09/16/2024 [id number] 5 FURCOLO,T PARKER 2023 90 [facility] Allergies, Adverse Reactions, Alerts Combined list of allergies from Department of Defense and Veterans Affairs facilities. It does not include entries that were removed or entered in error. Substance Category Reaction Severity Reaction type Status Date Reported Comments Source AUGMENTIN Propensity to adverse reactions to drug (finding) Dyspnea active 3 [facility] CHERRIES Propensity to adverse reactions to substance (finding) Anaphylaxis active 3 [facility] LISINOPRIL Propensity to adverse reactions to drug (finding) Angioedema, Angioedema of tongue active 1 [facility] Immunizations Combined list of available immunizations from the Department of Defense and [facility] facilities. 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 Member Status Comments Source INFLUENZA, UNSPECIFIED FORMULATION 2023 88 complet ed Completed Series, HISTORICA L INFORMATI ON - FROM OTHER REGISTRY, [facility] COVID-19 (MODERNA), MRNA, LNP-S, PF, 50 MCG/0.5 ML (AGES 12+ YEARS) 1 2022 JACI ADEN LEFT DELTO ID [id number] 312 complet ed [facility] INFLUENZA, HIGH-DOSE, QUADRIVALENT 2022 [place] [facility] RIGHT DELTO ID [id number] 197 complet ed Completed Series, [facility] COVID-19 (MODERNA), MRNA, LNP-S, BIVALENT BOOSTER, PF, 50 MCG/0.5 ML OR 25MCG/0.25 ML DOSE 1 2021 229 complet ed MOD; [id number]; 3 [facility] INFLUENZA VACCINE, QUADRIVALENT, ADJUVANTED 2021 205 complet ed [facility] INFLUENZA, UNSPECIFIED FORMULATION 2020 88 complet ed [facility] TD (ADULT), 5 LF TETANUS TOXOID, PRESERVATIVE FREE, ADSORBED 2020 113 complet ed [facility] COVID-19 (PFIZER), MRNA, LNP-S, PF, 30 MCG/0.3 ML DOSE 2 2020 208 complet ed [facility] COVID-19 (PFIZER), MRNA, LNP-S, PF, 30 MCG/0.3 ML DOSE 1 2020 208 complet ed [facility] INFLUENZA, UNSPECIFIED FORMULATION 2019 88 complet ed [...] YRS (HISTORICAL) 2012 88 complet ed Through [facility] - employee [facility] Mar 19, 2024 09:43 AM Reporting Lab: [place] [facility] [place] [address] Performing [facility]: [facility] [place] [facility] [address] [facility] [address] [facility] LIPID PANEL FASTING CHOLESTEROL [MASS/VOLUM E] IN SERUM OR PLASMA 162 mg/dL 09/08 Specimen Type: SERUM No comment entered. Ordering Provider: KAUSHIK EDWARDS Report Released Date/Time: Mar 19, 2024 09:43 AM Reporting Lab: [facility] [place] [facility] [address] [facility] [address] Performing Lab: [facility] [place] [facility] [address] [facility] [address] [facility]N [facility] LIPID PANEL FASTING TRIGLYCERID E [MASS/VOLUM E] IN SERUM OR PLASMA 63 mg/dL 0 - 150 09/08 Specimen Type: SERUM No comment entered. Ordering Provider: KAUSHIK EDWARDS Report Released Date/Time: Mar 19, 2024 09:43 AM Reporting Lab: [facility] [place] [facility] [address] [facility] [address] Performing Lab: [facility] [place] [address] [address] [facility]N [facility]ITAL[facility] LIPID PANEL FASTING CHOLESTEROL IN LDL [MASS/VOLUM E] IN SERUM OR PLASMA BY CALCULATION 68 mg/dL 0 - 129 09/08 Specimen Type: SERUM No comment entered. Ordering Provider: KAUSHIK EDWARDS Report Released Date/Time: Mar 19, 2024 09:43 AM Reporting Lab: [facility] [place] [address] [address] Performing Lab: [facility] [place] [address] [address] [facility] [facility] LIPID PANEL FASTING CHOLESTEROL .TOTAL/CHOL ESTEROL IN HDL [MASS RATIO] IN SERUM OR PLASMA 2.0 09/08 Specimen Type: SERUM No comment entered. Ordering Provider: KAUHSIK EDWARDS Report Released Date/Time: Mar 19, 2024 09:43 AM Reporting Lab: [facility] [place] [address] [address] Performing Lab: [facility]ITALUSE[facility] [address] [facility] [address] [facility] LIPID PANEL FASTING CHOLESTEROL IN HDL [MASS/VOLUM E] IN SERUM OR PLASMA 81 mg/dL 40 09/08 Specimen Type: SERUM No comment entered. Ordering Provider: KAUSHIK EDWARDS Report Released Date/Time: Mar 19, 2024 09:43 AM Reporting Lab: [facility]ETER[facility]-TUSCALOOSATRN [facility]ITALUSE[facility] [address] [facility] [address] Performing Lab: [facility]ERN [address] [address] [facility] LIVER FUNCTION PROTEIN [MASS/VOLUM E] IN SERUM OR PLASMA 6.6 g/dL 6.4 - 8.3 09/08 Specimen Type: SERUM No comment entered. Ordering Provider: KAUSHIK EDWARDS Report Released Date/Time: Mar 19, 2024 09:43 AM Reporting Lab: [facility]ER[facility]-TUSCALOOSATRN L[facility]PITALUSE[address] [address] Performing Lab: [facility]ERN [facility]ITALUSE[facility] [address] [facility] [address] [facility] LIVER FUNCTION ALBUMIN [MASS/VOLUM E] IN SERUM OR PLASMA BY BROMOCRESOL PURPLE (BCP) DYE BINDING METHOD 3.9 g/dL 3.2 - 4.6 09/08 Specimen Type: SERUM No comment entered. Ordering Provider: KAUSHIK EDWARDS Report Released Date/Time: Mar 19, 2024 09:43 AM Reporting Lab: [facility]ERN [facility]ITALUSE[address] [address] Performing Lab: [facility]ERN [facility]ITALUSE[address] [address] [facility] LIVER FUNCTION ALKALINE PHOSPHATASE [ENZYMATIC ACTIVITY/VO LUME] IN SERUM OR PLASMA 75 U/L 40 - 150 09/08 Specimen Type: SERUM No comment entered. Ordering Provider: KAUSHIK EDWARDS Report Released Date/Time: Mar 19, 2024 09:43 AM Reporting Lab: [facility] [place] [facility] [address] [facility] [address] Performing Lab: [facility] [place] [facility] [address] [facility] [address] [facility] LIVER FUNCTION ASPARTATE AMINOTRANSF ERASE [ENZYMATIC ACTIVITY/VO LUME] IN SERUM OR PLASMA BY WITH P-5'-P 36 U/L 5 - 34 09/08 H Specimen Type: SERUM No comment entered. Ordering Provider: KAUSHIK EDWARDS Report Released Date/Time: Mar 19, 2024 09:43 AM Reporting Lab: [facility] [place] [facility] [address] [facility] [address] Performing Lab: [facility] [place] [address] [address] [facility] [facility] LIVER FUNCTION ALANINE AMINOTRANSF ERASE [ENZYMATIC ACTIVITY/VO LUME] IN SERUM OR PLASMA BY WITH P-5'-P 26 U/L 09/08 Specimen Type: SERUM No comment entered. Ordering Provider: KAUSHIK EDWADRS Report Released Date/Time: Mar 19, 2024 09:43 AM Reporting Lab: [facility] [place] [facility] [address] [facility] [address] Performing Lab: [facility] [place] [address] [address] [facility] [place] [facility] LIVER FUNCTION BILIRUBIN.T OTAL [MASS/VOLUM E] IN SERUM OR PLASMA 0.9 mg/dL 0.2 - 1.2 09/08 Specimen Type: SERUM No comment entered. Ordering Provider: KAUSHIK EDWARDS Report Released Date/Time: Mar 19, 2024 09:43 AM Reporting Lab: [facility] [place] [facility] [address] [facility] [address] Performing Lab: [facility] [place] [address] [address] [facility] [place] [facility] BASIC METABOLIC PANEL (fasting) UREA NITROGEN [MASS/VOLUM E] IN SERUM OR PLASMA 20 mg/dL 8 - 26 09/08 Specimen Type: SERUM No comment entered. Ordering Provider: KAUSHIK EDWARDS Report Released Date/Time: Mar 19, 2024 09:43 AM Reporting Lab: [facility] [place] [facility] [address] [facility] [address] Performing Lab: [facility] [place] [facility] [address] [facility] [address] [facility] BASIC METABOLIC PANEL (fasting) GLUCOSE [MASS/VOLUM E] IN SERUM OR PLASMA 94 mg/dL 65 - 100 09/08 Specimen Type: SERUM No comment entered. Ordering Provider: KAUSHIK EDWARDS Report Released Date/Time: Mar 19, 2024 09:43 AM Reporting Lab: [facility] [place] [facility] [address] [facility] [address] Performing Lab: [facility] [place] [address] [address] [facility] W[facility]N [facility]ITALUSE [facility] BASIC METABOLIC PANEL (fasting) SODIUM [MOLES/VOLU ME] IN SERUM OR PLASMA 140 mmol/L 136 - 145 09/08 Specimen Type: SERUM No comment entered. Ordering Provider: KAUSHIK EDWARDS Report Released Date/Time: Mar 19, 2024 09:43 AM Reporting Lab: [facility] [place] [facility] [address] [facility] [address] Performing Lab: [facility] [place] [address] [address] [facility] [facility] BASIC METABOLIC PANEL (fasting) POTASSIUM [MOLES/VOLU ME] IN SERUM OR PLASMA 4.2 mmol/L 3.5 - 5.1 09/08 Specimen Type: SERUM No comment entered. Ordering Provider: KAUSHIK EDWARDS Report Released Date/Time: Mar 19, 2024 09:43 AM Reporting Lab: [facility] [place] [facility] [address] [facility] [address] Performing Lab: [facility] [place] [address] [address] [facility] [facility] BASIC METABOLIC PANEL (fasting) CHLORIDE [MOLES/VOLU ME] IN SERUM OR PLASMA 106 mmol/L 98 - 107 09/08 Specimen Type: SERUM No comment entered. Ordering Provider: KAUSHIK EDWARDS Report Released Date/Time: Mar 19, 2024 09:43 AM Reporting Lab: [facility]-TUSCALOOSATRN [address] [address] Performing Lab: [facility]-TUSCALOOSATRN [address] [address] [facility] BASIC METABOLIC PANEL (fasting) CARBON DIOXIDE, TOTAL [MOLES/VOLU ME] IN SERUM OR PLASMA 24 meq/L 23 - 31 09/08 Specimen Type: SERUM No comment entered. Ordering Provider: KAUSHIK EDWARDS Report Released Date/Time: Mar 19, 2024 09:43 AM Reporting Lab: [facility] [address] [address] Performing Lab: [facility]-TUSCALOOSATRN [facility]ITALUSE[address] [address] [facility] BASIC METABOLIC PANEL (fasting) CALCIUM [MASS/VOLUM E] IN SERUM OR PLASMA 9.2 mg/dL 8.8 - 10 09/08 Specimen Type: SERUM No comment entered. Ordering Provider: KAUSHIK EDWARDS Report Released Date/Time: Mar 19, 2024 09:43 AM Reporting Lab: [facility]CALOOSATRN [facility]ITALUSE[address] [address] Performing Lab: [facility]RL TRN [facility]ITALUSE[address] [address] [facility]RCH[facility]ERN [facility] BASIC METABOLIC PANEL (fasting) CREATININE [MASS/VOLUM E] IN SERUM OR PLASMA 1.33 mg/dL 0.72 - 1.25 09/08 H Specimen Type: SERUM No comment entered. Ordering Provider: KAUSHIK EDWARDS Report Released Date/Time: Mar 19, 2024 09:43 AM Reporting Lab: [facility]CALOOSATRN [facility]ITALUSE[address] [address] Performing Lab: [facility] [place] [facility] [address] [facility] [address] [facility]ERN [facility]OSPITALUSE [facility] BASIC METABOLIC PANEL (fasting) GLOMERULAR FILTRATION RATE/1.73 SQ M.PREDICTED [VOLUME RATE/AREA] IN SERUM, PLASMA OR BLOOD BY CREATININE- BASED FORMULA (CKD-EPI 2020) 52 mL/min 60 09/08 L Specimen Type: SERUM No comment entered. Ordering Provider: KAUSHIK EDWARDS Report Released Date/Time: Mar 19, 2024 09:43 AM Reporting Lab: [facility]N [facility] [address] [facility] [address] Performing Lab: [facility]RV[facility]ER[facility]-TUSCALOOSATRN [facility]ITALUSEHUDS[facility] [address] [facility] [address] [facility]ITALUSE [facility] CBC LEUKOCYTES [#/VOLUME] IN BLOOD BY AUTOMATED COUNT 6.75 10*3/u L 4.50 - 11.00 09/08 Specimen Type: BLOOD No comment entered. Ordering Provider: KAUSHIK EDWARDS Report Released Date/Time: Mar 19, 2024 09:43 AM Reporting Lab: [facility] TRN [facility]PITALUSETS [facility] [address] [facility] [address] Performing Lab: [facility]N [facility]USE[facility] [address] [facility] [address] [facility]ITALUSE [facility] CBC ERYTHROCYTE S [#/VOLUME] IN BLOOD BY AUTOMATED COUNT 4.47 10*6/u L 4.23 - 5.66 09/08 Specimen Type: BLOOD No comment entered. Ordering Provider: KAUSHIK EDWARDS Report Released Date/Time: Mar 19, 2024 09:43 AM Reporting Lab: [facility] TRN [facility]PITALUSETS [facility] [address] [facility] [address] Performing Lab: [facility]ITALUSE[address] [address] [facility]ITALUSE [facility] CBC HEMOGLOBIN [MASS/VOLUM E] IN BLOOD 13.8 g/dL 12.8 - 17 09/08 Specimen Type: BLOOD No comment entered. Ordering Provider: KAUSHIK EDWARDS Report Released Date/Time: Mar 19, 2024 09:43 AM Reporting Lab: [facility] [place] [facility] [address] [facility] [address] Performing Lab: [facility] [place] [facility] [address] [facility] [address] [facility] CBC HEMATOCRIT [VOLUME FRACTION] OF BLOOD BY AUTOMATED COUNT 41.3 39.2 - 50.4 09/08 Specimen Type: BLOOD No comment entered. Ordering Provider: KAUSHIK EDWARDS Report Released Date/Time: Mar 19, 2024 09:43 AM Reporting Lab: [facility] [place] [facility] [address] [facility] [address] Performing Lab: [facility] [place] [facility] [address] [facility] [address] [facility] [place] [facility] CBC MCV [ENTITIC VOLUME] BY AUTOMATED COUNT 92.4 fL 82 - 99 09/08 Specimen Type: BLOOD No comment entered. Ordering Provider: KAUSHIK EDWARDS Report Released Date/Time: Mar 19, 2024 09:43 AM Reporting Lab: [facility] [place] [facility] [address] [facility] [address] Performing Lab: [facility] [place] [facility] [address] [facility] [address] [facility] CBC MCHC [MASS/VOLUM E] BY AUTOMATED COUNT 33.4 g/dL 30.8 - 35.1 09/08 Specimen Type: BLOOD No comment entered. Ordering Provider: KAUSHIK EDWARDS Report Released Date/Time: Mar 19, 2024 09:43 AM Reporting Lab: [facility] [place] [facility] [address] [facility] [address] Performing Lab: [facility] [place] [facility] [address] [facility] [address] [facility] [place] [facility] CBC PLATELETS [#/VOLUME] IN BLOOD BY AUTOMATED COUNT 257 10*3/u L 140 - 360 09/08 Specimen Type: BLOOD No comment entered. Ordering Provider: KAUSHIK EDWARDS Report Released Date/Time: Mar 19, 2024 09:43 AM Reporting Lab: [facility] [place] [facility] [address] [facility] [address] Performing Lab: [facility] [place] [facility] [address] [facility] [address] [facility] [place] [facility] CBC PLATELET MEAN VOLUME [ENTITIC VOLUME] IN BLOOD BY AUTOMATED COUNT 11.2 fL 9.2 - 12.4 09/08 Specimen Type: BLOOD No comment entered. Ordering Provider: KAUSHIK EDWARDS Report Released Date/Time: Mar 19, 2024 09:43 AM Reporting Lab: [facility] [place] [facility] [address] [facility] [phone] Performing Lab: [facility] [place] [facility] [address] [facility] [address] [place] [facility] [place] [facility] CBC ERYTHROCYTE DISTRIBUTIO N WIDTH [RATIO] BY AUTOMATED COUNT 15.3 12.0 - 16.0 09/08 Specimen Type: BLOOD No comment entered. Ordering Provider: KAUSHIK EDWARDS Report Released Date/Time: Mar 19, 2024 09:43 AM Reporting Lab: [place] [facility] [place] [facility] [address] [facility] [address] Performing Lab: [facility] [place] [facility] [address] [facility] [phone] [place] [facility] [place] [facility] CBC MCH [ENTITIC MASS] BY AUTOMATED COUNT 30.9 pg 26.2 - 32.6 09/08 Specimen Type: BLOOD No comment entered. Ordering Provider: KAUSHIK EDWARDS Report Released Date/Time: Mar 19, 2024 09:43 AM Reporting Lab: [place] [facility] [place] [facility] [address] [facility] [address] Performing Lab: [facility] [place] [facility] [address] [facility] [address] [facility] [place] [facility] BASIC METABOLIC PANEL (non-fast ing) UREA NITROGEN [MASS/VOLUM E] IN SERUM OR PLASMA 22 mg/dL 7 - 02/23 Specimen Type: SERUM No comment entered. Ordering Provider: KAUSHIK EDWARDS Report Released Date/Time: Feb 17, 2024 10:24 AM Reporting Lab: [facility] [address] Performing Lab: [facility] [address] [facility] [address] [facility]OSPITALUSE [facility] BASIC METABOLIC PANEL (non-fast ing) GLUCOSE [MASS/VOLUM E] IN SERUM OR PLASMA 92 mg/dL 65 - 100 02/23 Specimen Type: SERUM No comment entered. Ordering Provider: KAUSHIK EDWARDS Report Released Date/Time: Feb 17, 2024 10:24 AM Reporting Lab: [facility]-TUSCALOOSATRN [address] [address] Performing Lab: [facility]N [address] [address] [facility] BASIC METABOLIC PANEL (non-fast ing) SODIUM [MOLES/VOLU ME] IN SERUM OR PLASMA 139 mmol/L 135 - 145 02/23 Specimen Type: SERUM No comment entered. Ordering Provider: KAUSHIK EDWARDS Report Released Date/Time: Feb 17, 2024 10:24 AM Reporting Lab: [facility]-TUSCALOOSATRN [facility] [address] Performing Lab: [facility] TRN [address] [address] [facility] BASIC METABOLIC PANEL (non-fast ing) POTASSIUM [MOLES/VOLU ME] IN SERUM OR PLASMA 4.4 mmol/L 3.5 - 5.0 02/23 Specimen Type: SERUM No comment entered. Ordering Provider: KAUSHIK EDWARDS Report Released Date/Time: Feb 17, 2024 10:24 AM Reporting Lab: [facility] [address] Performing Lab: [facility] [address] [facility]ERN L[facility] HOSPITALUSE [facility] BASIC METABOLIC PANEL (non-fast ing) CHLORIDE [MOLES/VOLU ME] IN SERUM OR PLASMA 105 mmol/L 100 - 110 02/23 Specimen Type: SERUM No comment entered. Ordering Provider: KAUSHIK EDWARDS Report Released Date/Time: Feb 17, 2024 10:24 AM Reporting Lab: [address] [address] Performing Lab: [address] [address] [facility] BASIC METABOLIC PANEL (non-fast ing) CARBON DIOXIDE, TOTAL [MOLES/VOLU ME] IN SERUM OR PLASMA 24 meq/L 20 - 30 02/23 Specimen Type: SERUM No comment entered. Ordering Provider: KAUSHIK EDWARDS Report Released Date/Time: Feb 17, 2024 10:24 AM Reporting Lab: [address] [address] Performing Lab: [address] [address] [facility] BASIC METABOLIC PANEL (non-fast ing) CREATININE [MASS/VOLUM E] IN SERUM OR PLASMA 1.04 mg/dL 0.50 - 1.40 02/23 Specimen Type: SERUM No comment entered. Ordering Provider: KAUSHIK EDWARDS Report Released Date/Time: Feb 17, 2024 10:24 AM Reporting Lab: [address] [address] Performing Lab: [address] [address] [facility] BASIC METABOLIC PANEL (non-fast ing) GLOMERULAR FILTRATION RATE/1.73 SQ M.PREDICTED [VOLUME RATE/AREA] IN SERUM, PLASMA OR BLOOD BY CREATININE- BASED FORMULA (CKD-EPI 2020) 70 mL/min 60 02/23 Specimen Type: SERUM No comment entered. Ordering Provider: KAUSHIK EDWARDS Report Released Date/Time: Feb 17, 2024 10:24 AM Reporting Lab: [address] [place] [address] Performing Lab: [facility] [place] [facility] [address] [facility] [address] [facility]N [place] [facility] LIPID PANEL, NON FASTING CHOLESTEROL [MASS/VOLUM E] IN SERUM OR PLASMA 165 mg/dL 02/23 Specimen Type: SERUM No comment entered. Ordering Provider: KAUSHIK EDWARDS Report Released Date/Time: Feb 17, 2024 10:24 AM Reporting Lab: [facility] [place] [facility] [address] [facility] [address] Performing Lab: [facility] TRN [facility]ITALUSETS [facility] [address] [facility] [address] [facility]ERN [place] [facility] LIPID PANEL, NON FASTING TRIGLYCERID E [MASS/VOLUM E] IN SERUM OR PLASMA 91 mg/dL 0 - 150 02/23 Specimen Type: SERUM No comment entered. Ordering Provider: KAUSHIK EDWARDS Report Released Date/Time: Feb 17, 2024 10:24 AM Reporting Lab: [facility] [place] [facility] [address] [facility] [address] Performing Lab: [facility] W[facility]N [facility]ITALUSETS [facility] [address] [facility] [address] [facility] SYSTEMRVETERANS AFFAIRS [facility]-TUSCALOOSATRN L[facility]OSPITALUSE [facility] LIPID PANEL, NON FASTING CHOLESTEROL IN LDL [MASS/VOLUM E] IN SERUM OR PLASMA BY CALCULATION 74 mg/dL 0 - 129 02/23 Specimen Type: SERUM No comment entered. Ordering Provider: KAUSHIK EDWARDS Report Released Date/Time: Feb 17, 2024 10:24 AM Reporting Lab: [facility] [place] [facility] [address] [facility] [address] Performing Lab: [facility] [place] [address] [address] [facility] [place] [facility] LIPID PANEL, NON FASTING CHOLESTEROL .TOTAL/CHOL ESTEROL IN HDL [MASS RATIO] IN SERUM OR PLASMA 2.3 02/23 Specimen Type: SERUM No comment entered. Ordering Provider: KAUSHIK EDWARDS Report Released Date/Time: Feb 17, 2024 10:24 AM Reporting Lab: [facility] [place] [facility] [address] [facility] [address] Performing Lab: [facility] [place] [facility] [address] [facility] [address] [facility] [place] [facility] LIPID PANEL, NON FASTING CHOLESTEROL IN HDL [MASS/VOLUM E] IN SERUM OR PLASMA 73 mg/dL 40 - 60 02/23 H Specimen Type: SERUM No comment entered. Ordering Provider: KAUSHIK EDWARDS Report Released Date/Time: Feb 17, 2024 10:24 AM Reporting Lab: [facility] [place] [facility] [address] [facility] [address] Performing Lab: [facility] [place] [facility] [address] [facility] [address] [facility] [place] [facility] THYROID T4 FREE(FT4) THYROXINE (T4) FREE [MASS/VOLUM E] IN SERUM OR PLASMA 1.12 ng/dL 0.6 - 1.6 07/29 Specimen Type: SERUM No comment entered. Ordering Provider: DIAMOND NIETO Report Released Date/Time: Jul 15, 2023 09:43 AM Reporting Lab: [facility] [place] [facility] [address] [facility] [address] Performing Lab: [facility] [place] [facility] [address] [facility] [address] [facility] [place] [facility] BASIC METABOLIC PANEL (fasting) UREA NITROGEN [MASS/VOLUM E] IN SERUM OR PLASMA 23 mg/dL 7 - 25 07/29 Specimen Type: SERUM No comment entered. Ordering Provider: DIAMOND NIETO Report Released Date/Time: Jul 15, 2023 09:43 AM Reporting Lab: [facility] [place] [facility] [address] [facility] [address] Performing Lab: [facility] [place] [facility] [address] [facility] [address] [facility] [place] [facility] BASIC METABOLIC PANEL (fasting) GLUCOSE [MASS/VOLUM E] IN SERUM OR PLASMA 90 mg/dL 65 - 100 07/29 Specimen Type: SERUM No comment entered. Ordering Provider: DIAMOND NIETO Report Released Date/Time: Jul 15, 2023 09:43 AM Reporting Lab: [facility] [place] [facility] [address] [facility] [address] Performing Lab: [facility] [place] [facility] [address] [facility] [address] [facility] [place] [facility] BASIC METABOLIC PANEL (fasting) SODIUM [MOLES/VOLU ME] IN SERUM OR PLASMA 140 mmol/L 135 - 145 07/29 Specimen Type: SERUM No comment entered. Ordering Provider: DIAMOND NIETO Report Released Date/Time: Jul 15, 2023 09:43 AM Reporting Lab: [facility] [place] [facility] [address] [facility] [address] Performing Lab: [facility] [place] [facility] [address] [facility] [address] [facility] [place] [facility] BASIC METABOLIC PANEL (fasting) POTASSIUM [MOLES/VOLU ME] IN SERUM OR PLASMA 4.4 mmol/L 3.5 - 5.0 07/29 Specimen Type: SERUM No comment entered. Ordering Provider: DIAMOND NIETO Report Released Date/Time: Jul 15, 2023 09:43 AM Reporting Lab: [facility] [place] [facility] [address] [facility] [address] Performing Lab: [facility] [place] [facility] [address] [facility] [address] [facility] [place] [facility] BASIC METABOLIC PANEL (fasting) CHLORIDE [MOLES/VOLU ME] IN SERUM OR PLASMA 105 mmol/L 100 - 110 07/29 Specimen Type: SERUM No comment entered. Ordering Provider: DIAMOND NIETO Report Released Date/Time: Jul 15, 2023 09:43 AM Reporting Lab: [facility] [place] [facility] [address] [facility] [address] Performing Lab: [facility] [place] [facility] [address] [facility] [address] [facility] BASIC METABOLIC PANEL (fasting) CARBON DIOXIDE, TOTAL [MOLES/VOLU ME] IN SERUM OR PLASMA 25 meq/L 20 - 30 07/29 Specimen Type: SERUM No comment entered. Ordering Provider: DIAMOND NIETO Report Released Date/Time: Jul 15, 2023 09:43 AM Reporting Lab: [facility] [place] [facility] [address] [facility] [address] Performing Lab: [facility] [place] [facility] [address] [facility] [address] [facility] [place] [facility] BASIC METABOLIC PANEL (fasting) CREATININE [MASS/VOLUM E] IN SERUM OR PLASMA 1.07 mg/dL 0.50 - 1.40 07/29 Specimen Type: SERUM No comment entered. Ordering Provider: DIAMOND NIETO Report Released Date/Time: Jul 15, 2023 09:43 AM Reporting Lab: [facility] [place] [facility] [address] [facility] [address] Performing Lab: [facility] [place] [facility] [address] [facility] [address] [facility] BASIC METABOLIC PANEL (fasting) GLOMERULAR FILTRATION RATE/1.73 SQ M.PREDICTED [VOLUME RATE/AREA] IN SERUM, PLASMA OR BLOOD BY CREATININE- BASED FORMULA (CKD-EPI 2020) 68 mL/min 60 07/29 Specimen Type: SERUM No comment entered. Ordering Provider: DIAMOND NIETO Report Released Date/Time: Jul 15, 2023 09:43 AM Reporting Lab: [facility] [place] [facility] [address] [facility] [address] Performing Lab: [facility] [place] [facility] [address] [facility] [address] [facility] [place] [facility] LIPID PANEL FASTING CHOLESTEROL [MASS/VOLUM E] IN SERUM OR PLASMA 164 mg/dL 07/29 Specimen Type: SERUM No comment entered. Ordering Provider: DIAMOND NIETO Report Released Date/Time: Jul 15, 2023 09:43 AM Reporting Lab: [facility] [place] [facility] [address] [facility] [address] Performing Lab: [facility] [place] [facility] [address] [facility] [address] [facility] [place] [facility] LIPID PANEL FASTING TRIGLYCERID E [MASS/VOLUM E] IN SERUM OR PLASMA 67 mg/dL 0 - 150 07/29 Specimen Type: SERUM No comment entered. Ordering Provider: DIAMOND NIETO Report Released Date/Time: Jul 15, 2023 09:43 AM Reporting Lab: [facility] [place] [facility] [address] [facility] [address] Performing Lab: [facility] [place] [facility] [address] [facility] [address] [facility] [place] [facility] LIPID PANEL FASTING CHOLESTEROL IN LDL [MASS/VOLUM E] IN SERUM OR PLASMA BY CALCULATION 78 mg/dL 0 - 129 07/29 Specimen Type: SERUM No comment entered. Ordering Provider: DIAMOND NIETO Report Released Date/Time: Jul 15, 2023 09:43 AM Reporting Lab: [facility] [place] [facility] [address] [facility] [address] Performing Lab: [facility] [place] [facility] [address] [facility] [address] [facility] [place] [facility] LIPID PANEL FASTING CHOLESTEROL .TOTAL/CHOL ESTEROL IN HDL [MASS RATIO] IN SERUM OR PLASMA 2.2 07/29 Specimen Type: SERUM No comment entered. Ordering Provider: DIAMOND NIETO Report Released Date/Time: Jul 15, 2023 09:43 AM Reporting Lab: [facility] [place] [facility] [address] [facility] [address] Performing Lab: [facility] [place] [facility] [address] [facility] [address] [facility] [place] [facility] LIPID PANEL FASTING CHOLESTEROL IN HDL [MASS/VOLUM E] IN SERUM OR PLASMA 73 mg/dL 40 - 60 07/29 H Specimen Type: SERUM No comment entered. Ordering Provider: AHMED,MOHAM MED JAWED Report Released Date/Time: Jul 15, 2023 09:43 AM Reporting Lab: [facility] [place] [facility] [address] [facility] [address] Performing Lab: [facility] [place] [facility] [address] [facility] [address] [facility] Vital [...] included; 2) Encounters from the Department of [facility] facilities going backup to 280 months. Location Location Details Encounter Type Encounter Number Reason For Visit Attending Provider ADM Date DC Date Status Disposition Source [facility] En[facility] [id number] 07[facility]28 [facility] En[facility] [id number] 08/03 [facility] En[facility] [id number] 08/05 [facility] En[facility] [id number] BECKA TALBERT 08/10 [facility] OFF[facility] O/P EST MOD 30 MIN [id number] Diagnos is: ICD-10- CM I48.0 Paroxys mal atrial fibrill ation TENISHA NIETO MMED JAWED 08/17 [facility] En[facility] [id number] Penelope HENDERSON 09/15 [facility] En[facility] [id number] Penelope HENDERSON 02/16 [facility] En[facility] [id number] 02/25 [facility] En[facility] [id number] 03/05 [facility] [place] [facility] OFFICE O/P EST MOD 30 MIN [id number] Diagnos is: ICD-10- CM E03.9 Hypothy roidism , unspeci fied FURCOLO,TI NA 03/19 [facility] [place] HEARING AID REPAIR/MOD IFYING [id number] Diagnos is: ICD-10- CM Z46.1 Encount er for fitting and adjustm ent of hearing aid SENIOR,FRANCY PERALES L 04/06 [facility] En[facility] [id number] 04/14 [facility] [place] [facility] COMPRE OPH EXAM EST PT 1/> [id number] Diagnos is: ICD-10- CM Z96.1 Presenc e of intraoc ular lens CARMELO CUBA H B 06/21 [facility] En[facility] [id number] 06/23 [facility] FIT SPECTACLES BIFOCAL [id number] Diagnos is: ICD-10- CM Z46.0 Encount er for fit/adj st of spectac les and contact lenses CARMELO CUBA H B 06/24 [facility] En[facility] [id number] 07/30 [facility] [place] [facility] Outpatient Encounter [id number] 08/02 [facility] [place] [place] [facility] NQHP OL DIG ASSMT&MGMT 5-10 [id number] Diagnos is: ICD-10- CM Z04.89 Encount er for examina tion and observa tion for oth reasons ALIANIKHIL DERRICK Morales 08/30 [facility] [place] [facility] Outpatient Encounter [id number] TEJAS ALEJANDRE 08/30 [facility] [place] [facility] [place] [facility] OFFICE O/P EST MOD 30 MIN [id number] Diagnos is: ICD-10- CM Z77.29 Contact with and exposur e to other hazardo us substan josephine FURSYLVIA,TI NA 09/14 [facility] [place] [facility] [place] [facility] HEARING AID FITTING/CH ECKING [id number] Diagnos is: ICD-10- CM H90.3 Sensori neural hearing loss, bilater al FRANCY TORIBIO L 09/30 [facility] [place] [facility] [place] [facility] HEARING SERVICE [id number] Diagnos is: ICD-10- CM Z46.1 Encount er for fitting and adjustm ent of hearing aid FRANCY TORIBIO L 10/26 [facility] [place] [facility] Social History Combined list of available smoking, tobacco, and other social history from Department of Defense and Veterans Affairs facilities. Social History Type Response Date Comment [facility] e Tobacco smoking status [facility] VA-TOBACCO NEVER USED 08/18/2023 [facility] [place] [facility] of [facility]2022 [facility] [place] [facility] History of tobacco use [place]-TOBACCO NEVER USED 07/03/2021 [facility] [place] [facility] History of tobacco use WI-TOBACCO NEVER USED 06/16/2020 [facility] [place] [facility] History of tobacco use WI-TOBACCO NEVER USED 12/07/2018 [facility] [place] [facility] History of tobacco use [facility]-TOBACCO NEVER USED [facility] [place] [facility] History of tobacco use LIFETIME NON-TOBACCO USER [facility] [place] [facility] History of tobacco use LIFETIME NON-TOBACCO USER 06/04/2016 [facility] [place] [facility] History of tobacco use LIFETIME NON-TOBACCO USER 05/09/2015 [facility] [place] [facility] History of tobacco use LIFETIME NON-TOBACCO USER 10/27/2012 [facility] Plan of Care List of future care activities from Department of Veterans Affairs facilities. Additional future care activities may be listed in the Assessment and Plan section. Date/Time Care Activity Care Activity Detail Facili ty 03/15/2025 AMBULATORY - MEDICINE [facility]
--- OUTSIDE RECORDS SUMMARY | 2025-01-26 07:44 | XMS_ITS | Clinical Summary ---
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 06/29/2014 Active omeprazole (PRILOSEC) 40 MG capsule Take 40 mg by mouth daily. 06/29/2014 Active warfarin (COUMADIN) 5 MG tablet Take 5 mg by mouth daily. Active lisinopril (PRINIVIL,ZESTRI L) 20 MG tablet Take 20 mg by mouth daily. Active atorvastatin (LIPITOR) 20 MG tablet Take 20 mg by mouth daily. Active Active Problems Problem Noted Date Diagnosed Date Atrial fibrillation 10/27/2012 Overview (07/16/2014): Atrial fibrillation; history of Social History Tobacco Use Types Packs/Day Years Used Date Smoking Tobacco: Never Education Answer Date Recorded Are you interested in more education? Not on paul e 09/19/2022 Are you concerned about learning? Not on file 09/19/2022 No 09/19/2022 No 09/19/2022 Digital Access Answer Date Recorded No 10/21/2022 No 10/21/2022 No 10/21/2022 Reliable internet access at home? Not on file 10/21/2022 Device with a working camera? Not on file Sex and Gender Information Value Date Recorded Sex Assigned at Not on file Legal Sex Male 7:32 PM EST Gender Identity Not on file Sexual Orientation Not on file Last Filed Vital Signs Vital Sign Reading Time Taken Comments Blood Pressure 147/83 12/12/2014 12:37 PM EDT Pulse 58 12/12/2014 12:37 PM EDT Temperature - - Respiratory Rate - - Oxygen Saturation - - Inhaled Oxygen Concentration - - Weight 74.8 kg (165 lb) 12/12/2014 12:37 PM EDT Height 162.6 cm (5' 4 ) 12/12/2014 12:37 PM EDT Body Mass Index 28.32 12/12/2014 12:37 PM EDT Plan of Treatment Health Maintenance Due Date Last Done Comments ZOSTER VACCINES (1 of 2) 12/27/1987 RSV VACCINE (1 - 1-dose 75+ series) 2012 CREATININE LEVEL 06/29/2015 06/29/2014, 07/2014, 07/01/2012, Additional history exists POTASSIUM LEVEL 06/29/2015 06/29/2014, 10/2012, 06/29/2012 DEPRESSION SCREENING 12/13/2015 12/12/2014, 12/13/19 15 COVID-19 VACCINE ( season) 2024 02/20/2021, 06/22/2020, 06/01/2020 INFLUENZA VACCINE (#1) 2024 0, 03/10/2019, 02/13/2018, Additional history exists Adult Td,Tdap Booster 11/13/2026 11/13/2016 PNEUMOCOCCAL VACCINES (50+ years) Completed 11/13/2016, 11/08/2014 HEPATITIS A VACCINES Aged Out No long er eligible based on patient's age to complete this topic HIB VACCINES Aged Out No longer eligi ble based on patient's age to complete this topic MENINGOCOCCAL VACCINES (ACWY) Aged Out No longer eligible based on patient's age to complete this topic MENINGOCOCCAL VACCINES (B) Aged Out N o longer eligible based on patient's age to complete this topic Medical Devices Not on file Procedures Procedure Name Priority Date/Time Associated Diagnosis Comments HISTORICAL LAB Routine 06/29/2014 7:31 AM EST from Last 3 Months or Most Recently Relevant to Health Maintenance Results * (ABNORMAL) Historical Lab (06/29/2014 7:31 AM EST) GLUCOSE 82 70 - 100 mg/dL [facility] UREA N 23 6 - 23 mg/dL [facility] CREATININE 1.33(A) 0.50 - 1.20 mg/dL [facility] eGFR 52(A) 60 - 150 mL/min/1.7 3m2 [facility] Comment:If patient is black, multiply result by 1.21 SODIUM 144 136 - 145 mmol/L [facility] POTASSIUM 5.0 3.4 - 5.0 mmol/L [facility] CHLORIDE 107 98 - 107 mmol/L [facility] TOTAL CO2 26 22 - 31 mmol/L [facility] CALCIUM 8.8 8.8 - 10.7 mg/dL [facility] MAGNESIUM 2.2 1.7 - 2.6 mg/dL [facility] ANION GAP 11 5 - 17 mmol/L [facility] 06/29/2014 7:31 AM EST Comment:BLOOD Narrative [facility] - 06/29/2014 7:31 AM EST [id number] us Polo Gil MD LAB BLOOD ORDERABLE S Final Result [address] [id number] from Last 3 Months or Most Recently Relevant to Health Maintenance Insurance MEDICARE PART A & B MEDICARE PART A & B MEDICARE PART A & B MEDICARE PART A & B MEDICARE PART A & B MEDICARE PART A & B MEDICARE PART A & B MEDICARE PART A & B MEDICARE PART A & B Care Teams Geophysics Teacher Relationship Specialty Start Date End Date Brandin Frausto MD PCP - General 09/29/14 Additional Source Comments The information contained in this document represents components of the legal health record. It is not the complete legal health record.[facility]
--- OUTSIDE RECORDS SUMMARY | 2025-01-26 07:44 | XMS_ITS | Patient Health Record ---
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 Name Role Phone Peter GLASGOW [place] Primary Care Provider Unava Franck Cornejo Jr Unavailable [phone] ANA, CEMIL Unavailable Unavailable Allergies Allergen (clinical drug ingredient) Drug/Non Drug Allergy documented on EMR Reaction Allergy Type Onset Date Status Romo Unknown Drug Allergy Active Reason For Referral No Information Medications Medication SIG (Take, Route, Frequency, Duration) Notes [...] tablet Orally On ce a day Active Immunizations Vaccine Route Administration Date Status Comme nts Flu vaccine no Preserv 3 and > Unknown 02/08/2015 Admin istered Influenza Unknown 03/01/2022 Administered Problems Problem Type SNOMED Code ICD Code Onset Dates Problem Status W/U Status Risk Notes Problem 213435205 Colon cancer screening (Z12.11) Active confirmed Problem 01306981 Epigastric pain (R10.13) Active confirmed 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.01) Active confirmed Problem 200110197 Personal history of colonic polyps (Z86.010) Active confirmed Problem 939156588 Diverticulitis (K57.92) Active confirmed Problem 535133985 Gastroesophageal reflux disease with esophagitis (K21.0) Active confirmed Problem 40556869 Colon polyps (K63.5) Active confirmed Problem Gastroesophageal reflux disease (922603977) GERD (gastroesophageal reflux disease) (K21.9) Active confirmed Problem 883763431 Gastroesophageal reflux disease, unspecified whether esophagitis present (K21.9) Active confirmed Plan Of Treatment Pending Test Test Name Order Date UPPER GI ENDOSCOPY, BIOPSY 03/27/2011 COLONOSCOPY WITH BIOPSY 03/27/2011 COLONOSCOPY REMOVAL OF LESION SNARE TECH NIQUE 03/27/2011 US ABD 03/15/2022 Future Test Test Name Order Date UPPER GI ENDOSCOPY 04/05/2015 COLONOSCOPY 04/05/2015 UPPER GI ENDOSCOPY 02/18/2018 COLONOSCOPY 02/18/2018 UPPER GI ENDOSCOPY 03/15/2022 Next Appt Details Provider Name:Franck campa , 03/16/2025 10:00:00 AM, [address] [place] [address], [place] [address], [place], [address], Insurance Providers Payer Name Payer Address Payer Phone Subscriber Number Group Number Insured Name Patient Relationship to Insured Coverage Start Date Coverage End Date MEDICARE OF [place] [address] [place] [address] [phone] [id number] BRY FLANNERY Self - patient is the insured [facility] SUPPLEMENTAL PLAN [address] [place] [address] [id number] BRY FLANNERY Self - patient is the insured Medical (General) History Medical History History ICD Code hypertension elevated Cholesterol Atrial fibrillation BPH Dupuytren's contracture Vitamin D deficiency 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 pylori Colonoscopy 08/11 hyperplastic polyp, fol lowup optional based on age Surgical History Surgery Date(Month/Year) sigmoid resection left knee replacement right knee replacement cardioversion TURP cardiac ablation x2 hand surgery ventral hernia repair
[2025-01-26 08:11] LABS: MANUAL DIFF FLAG NO
[2025-01-26 08:44] LABS: Hematocrit 41.6 % (42.0-52.0); Hemoglobin 13.9 g/dl (14.0-18.0); Imm Gran Abs Auto 0.02 X10*3/uL (0.00-0.03); Imm Gran Pct Auto 0.3 % (0.0-0.4); Lymphocytes Absolute Auto 1.6 X10*3/uL (1.2-4.9); Mean Corpuscular HGB Conc 33.4 g/dl (31.0-36.0); Mean Corpuscular Hemoglobin 31.0 pg (27.0-33.0); Mean Corpuscular Volume 92.9 fL (80.0-98.0); NRBC Abs Auto 0.000 X10*3/uL (0.0-0.012); NRBC Pct Auto 0.0 /100WBC (0.0-0.2); Platelet Count 210 X10*3/uL (160-400); Red Blood Count 4.48 X10*6/uL (4.60-5.80); White Blood Count 6.6 X10*3/uL (4.8-10.8)
[2025-01-26 09:10] LABS: Appearance Urine Clear; Glucose Urine UA Negative (Negative); PH 6.0 (5.0-9.0); Specific Gravity - Urine 1.015 (1.005-1.025)
[2025-01-26 09:40] LABS: Alanine Aminotransferase 33 U/L (0-40); Albumin Level 4.1 g/dL (3.5-5.0); Alkaline Phosphatase 73 U/L (39-117); Anion Gap 11 (12-20); Aspartate Amino Transferase 31 U/L (5-37); Blood Urea Nitrogen 26 mg/dL (9-16); Calcium 8.7 mg/dL (8.4-10.2); Carbon Dioxide 26 mmol/L (22-29); Chloride 106 mmol/L (96-108); Cholesterol 152 mg/dL (<200); Estimated Glomerular Filt Rate 58; HDL Cholesterol 60 mg/dL (>40); Potassium 4.3 mmol/L (3.3-5.1); Sodium 139 mmol/L (135-145); Total Protein 6.6 g/dL (6.5-8.0); Triglycerides 84 mg/dL (<150)
[2025-01-26 09:46] LABS: Free T4 (Free Thyroxine) 1.15 ng/dL (0.71-1.85); Thyroid Stimulating Hormone 1.11 uIU/mL (0.32-4.0)
== END 2025-01-26 07:41 | disposition home or self-care (01) ==
LOC: HO.LAB 07:40
PROVIDERS: PCP Internal Medicine; Visit Provider Internal Medicine
DX: R30.0 Dysuria (principal); E78.00 Pure hypercholesterolemia, unspecified; E03.9 Hypothyroidism, unspecified; E55.9 Vitamin D deficiency, unspecified; D64.9 Anemia, unspecified
CPT/HCPCS: 36415; 80053; 80061; 81003; 82306; 84439; 84443; 85025

== ENCOUNTER 2025-02-18 09:21 | Outpatient (AMB) | payer MEDICARE, SELFPAY ==
--- NOTE | 2025-02-18 09:33 | A.OFFPC_ITS ---
Vital Signs 02/18/25 09:34 Height 5 ft 4 in Weight 157 lb 6 oz BMI 27.0 BP 112/72 Blood Pressure Location Lt brachial Position Sitting Pulse 46 L Pulse Source Pulse Oximeter Pulse Oximetry (%) 97 Oxygen Delivery Method Room Air Intake Visit Reasons: 6 month f/u Accountant Controller Required: No Accompanied by: Self / Same As Patient Allergies flores (cherries) Allergy (Severe, Verified 02/18/25 10:06) Anaphylaxis amoxicillin (Augmentin) Allergy (Unknown, Verified 02/18/25 10:06) Unknown clavulanic acid (Augmentin) Allergy (Unknown, Verified 02/18/25 10:06) unknown empagliflozin (From Jardiance) Adverse Reaction (Intermediate, Verified 02/18/25 10:06) recurrent bladder spasms and dysuria Medication List - Last Reconciled 02/18/25 by Prem Green MD amiodarone 200 mg PO DAILY amlodipine 10 mg PO DAILY apixaban (Eliquis) 5 mg PO BID atorvastatin 20 mg PO BEDTIME finasteride 5 mg PO DAILY furosemide 20 mg PO DAILY levothyroxine 75 mcg PO DAILY 90 days omeprazole 20 mg PO DAILY tamsulosin 0.4 mg PO BEDTIME 30 days Tobacco use date assessed: 02/18/25 Fall risk assessment: No Falls in past year Last assessed Fall Risk: 02/18/25 Dental Screening Dental Screen Date: 02/18/25 Did you have a dental visit in the last 12 months?: Yes Did you have a dental problem in the last 6 months where you did not have access to dental care?: No Was dental information given to patient?: Patient has dentist HPI 6 month f/u HPI Details Patient comes in today for his follow up visit States that he feels okay He denies any headaches or dizziness Denies any chest pains; still has some DOCKERY but these are mostly mild and unchanged from previous He still goes to the gym to exercise/work out regularly for an hour and a half at a time and has been playing golf 2 to 3 times a week He saw an curator medical museum at [facility] a few months ago for consultation regarding possible pacemaker insertion but he decided to put this off for now and will reconsider this later on if his symptoms progress No nausea/vomiting, no abdominal pain No change in bowel habits noted He had his follow up labs done a few weeks ago - to discuss his results Adds that he was supposed to go for repeat EGD with Dr. 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 Lumbar degenerative disc disease Pure hypercholesterolemia Cervical disc disease Essential hypertension (HFpEF) heart failure with preserved ejection fraction Sick sinus syndrome Acquired hypothyroidism Diastolic dysfunction Retention of urine Angioedema Acute bacterial prostatitis Prostatitis Hearing aid worn Atrial fibrillation Pulmonary nodules Hyperkalemia Overweight (BMI 25.0-29.9) Vitamin D deficiency Vitamin B12 deficiency Chronic kidney disease, stage II (mild) Chronic gastritis without bleeding Sinus bradycardia Right bundle branch block (RBBB) determined by electrocardiography Hyperlipidemia HTN (hypertension) History of cardiomyopathy History of congestive heart failure Paroxysmal atrial fibrillation CAD (coronary artery disease) On amiodarone therapy Surgical History Hx of ventral hernia repair Hx of hand surgery History of prostate surgery Hx of colostomy History of colon resection Hx of knee surgery Hx of colonoscopy Hx of endoscopy History of radiofrequency ablation procedure for cardiac arrhythmia History of cardioversion Family History Father No problems noted. Mother CVD (cardiovascular disease) CHF (congestive heart failure) Social History Household Members: Spouse Housing: House Do you presently have visiting nurse or other home services: Yes Alcohol intake: current Alcohol intake frequency: holidays/special occasions only Alcohol type: wine Comment: pt refuses bed alarm Patient Tobacco Use Status: Never used Tobacco e-Cigarette/Vaping Use: Never Used Second Hand Smoke Exposure: No Advance Directives Date on File: 04/27/08 service: Yes Current occupational status: retired Cognitive needs: No Hearing needs: Yes Vision needs: Yes Questionnaire PHQ-9 Over the last 2 weeks, how often have you been bothered by any of the following problems? 1. Little interest or pleasure in doing things: not at all 2. Feeling down, depressed, or hopeless: not at all 3. Trouble falling or staying asleep, or sleeping too much: not at all 4. Feeling tired or having little energy: not at all 5. Poor appetite or overeating: not at all 6. Feeling bad about yourself - or that you are a failure or have let yourself or your family down: not at all 7. Trouble concentrating on things, such as reading the newspaper or watching television: not at all 8. Moving or speaking so slowly that other people could have noticed. Or the opposite - being so fidgety or restless that you have been moving around a lot more than usual: not at all 9. Thoughts that you would be better off or of hurting yourself in some way: not at all Total score: 0 Depression Screening Interpretation: Negative Depression Screening Done: Yes 80986 - PHQ-9 Billing: Yes Source: Developed by Drs. Lalo Trevino, Rosalina Faith, Tong Eaton and colleagues, with an educational mariah from [employer]. Thrive Questionnaire Date Thrive assessed: 02/18/25 I am a: Patient What is your living situation today?: I have a steady place to live Within the past 12 months, did the food you bought not last and you didn't have the money to get more?: Never true Within the past 12 months, did you worry whether your food would run out before you got money to buy more?: Never true Do you have trouble paying for medicines?: No Do you have trouble getting transportation to medical appointments?: No Do you have trouble paying your heating and electricity bill?: No Do you have trouble taking care of your child, family member or friend?: No Do you have trouble with day-to-day activities such as bathing, preparing meals, shopping, managing finances, etc.?: No Are you currently unemployed and looking for a job?: No Are you interested in more education?: No Please select the resources that you would like help with: None Currently or been in a relationship where the following occur: No concerns reported THRIVE Score: 0 AUDIT C Alcohol Use Questionnaire (AUDIT-C) 1. How often do you have a drink containing alcohol?: Never 3. How often do you have six or more drinks on one occasion?: Never Total Score: 0 Score Reviewed/Action Taken: Yes KENNY-7 AMB Questionnaire KENNY-7 Date KENNY - 7 assessed: 08/19/24 Feeling nervous, anxious, or on edge: 0 = Not at all Not being able to stop or control worryin = Not at all Worrying too much about different things: 0 = Not at all Trouble relaxin = Not at all Being so restless that it is hard to sit still: 0 = Not at all Becoming easily annoyed or irritable: 0 = Not at all Feeling afraid as if something awful might happen: 0 = Not at all Total KENNY-7 score (0-4 normal; 5-9 mild; 10-14 moderate; 15-21 severe): 0 Source: Developed by Drs. Lalo Trevino, Rosalina Faith, Tong Eaton and colleagues, with an educational mariah from [employer]. Review of Systems Const Denies chills, Denies fatigue, Denies fever(s) and Denies headache(s) ENT Denies dysphagia, Denies dizziness, Denies otalgia, Denies headache(s), Denies n mikala pain, Denies odynophagia and Denies sore throat Card Denies chest pain, Denies palpitations and Reports dyspnea on exertion (mild) Resp Denies chest congestion, Denies cough and Reports dyspnea on exertion (mild) GI Denies abdominal pain, Denies constipation, Denies dysphagia, Denies heartburn, Denies diarrhea, Denies nausea, Denies odynophagia and Denies vomiting Denies difficulty urinating, Denies dysuria, Denies nocturia, Denies urinary frequency and Denies urinary urgency Musc Denies back pain, Denies neck pain and Reports stiffness Skin/Breast Denies rash Neuro Denies dizziness and Denies headache(s) Endo Denies fatigue and Denies palpitations Physical exam (Primary Care) Vital Signs: Last Vital Signs Pulse 46 L 02/18/25 09:34 BP 112/72 02/18/25 09:34 Pulse Ox 97 02/18/25 09:34 Oxygen Delivery Method Room Air 02/18/25 09:34 BMI result Body Mass Index 27.0 Tobacco/Smoking Status: Tobacco use Status Tobacco use date assessed 02/18/25 02/18/25 09:38 Patient Tobacco Use Status Never used Tobacco 02/18/25 09:38 e-Cigarette/Vaping Use Never Used 02/18/25 09:38 PHQ-9: PHQ-9 Score PHQ-9: Total score 0 02/18/25 09:38 Depression Screening Interpretation: Negative Thrive Assessment: Date of Thrive Assessment Date Thrive assessed 02/11/25 02/18/25 09:38 Currently or been in a relationship where the following occur: No concerns reported Const General: no acute distress and alert HENMT Ears: TM's normal bilaterally and EAC's normal Throat: Yes posterior oropharynx normal and Yes tonsils normal (no TP congestion noted) Neck Neck: Yes supple and No lymphadenopathy Thyroid: Thyroid normal Resp Auscultation: clear to auscultation bilaterally, no rales and no wheezes Cardio Rate: bradycardic Rhythm: regular rhythm Heart sounds: no murmurs GI Palpation (GI): Soft to palpation and nontender Auscultation: normal bowel sounds General: Yes no CVA tenderness Back/Spine/Pelvis Back: no CVA tenderness Cervical Spine: Cervical spine tenderness (mild) Thoracic/Lumbar Spine: lumbar spinal tenderness Skin Rashes: no rashes Extrem General: Yes no clubbing, cyanosis or edema Results Reviewed Results Reviewed: Laboratory Tests 08/19/24 01/26/25 01/26/25 09:01 08:06 08:10 WBC 6.6 Hgb 13.9 L Hct 41.6 L Plt Count 210 Sodium 139 Potassium 4.3 Creatinine 1.19 Estimated GFR 58 Fasting Glucose 88 Calcium 8.7 D AST 31 ALT 33 Triglycerides 84 Cholesterol 152 LDL Cholesterol, Calc 76 HDL Cholesterol 60 25-OH Vitamin D Total 29.7 L TSH 1.11 Free T4 1.15 Ur Specific [place] 1.015 Urine Protein Negative Urine Glucose (UA) Negative Urine Blood Negative Urine Nitrite (Auto) Negative Ur Leukocyte Esterase Negative Coding Level of Care Code Est Pt Level 4 (61625) Diagnoses Paroxysmal atrial fibrillation I48.0 Chronic heart failure with preserved ejection fraction I50.32 Heart failure chronicity: chronic Ascending aorta dilatation I77.810 Essential hypertension I10 Pure hypercholesterolemia E78.00 Acquired hypothyroidism E03.9 Chronic kidney disease, stage II (mild) N18.2 Chronic gastritis without bleeding, unspecified gastritis type K29.50 Gastritis type: unspecified gastritis Cervical disc disease M50.90 Degeneration of intervertebral disc of lumbar region with discogenic back pain M51.360 Disc-related pain type: discogenic back pain only Primary osteoarthritis of both hips M16.0 Vitamin B12 deficiency E53.8 Vitamin D deficiency E55.9 BPH w urinary obs/LUTS N40.1; N13.8 Overweight (BMI 25.0-29.9) E66.3 Additional Codes PHQ-9 - 74498 - PHQ-9 Billing: Yes ([id number]) Assessment & Plan Assessment & Plan (1) Paroxysmal atrial fibrillation: Comment: Myocardial perfusion study done on 06/13/2020 came out normal Echocardiogram done in April 2020 also came out normal, with normal left ventricular systolic function and ejection fraction estimated between 65-70%. 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 and this will be monitored closely Code(s): I48.0 - Paroxysmal atrial fibrillation Category: Medical Plan: Patient currently remains in sinus rhythm, although he still reports occasional episodes of atrial fibrillation wherein he has to take extra doses of Amiodarone until his heart rate eventually settles back down Continue Amiodarone 200 mg QD - he has been doing well overall on rhythm control approach for years but as he has been experiencing some increasing symptoms of DOCKERY over the past year or so, was referred by cardiology for consideration for pacemaker placement He was seen by curator medical museum (Dr. Bah) back in May 2024 and was recommended pacemaker placement but patient decided to hold off on this for now as he feels that he is still active and does not think that his QOL is significantly impacted at this time Continue Eliquis 5 mg BID for thromboembolism prophylaxis Follow up with cardiology as scheduled (2) (HFpEF) heart failure with preserved ejection fraction: Code(s): I50.30 - Unspecified diastolic (congestive) heart failure Category: Medical Qualifiers: Heart failure chronicity: chronic Qualified Code(s): I50.32 - Chronic diastolic (congestive) heart failure Plan: He has been advised by cardiology in the past that this is likely the reason for his recurrent DOCKERY, which he feels has been gradually increasing lately Reinforced fluid restriction Continue Furosemide 20 mg QD He was also started on Jardiance 10 mg QD by cardiology last year to help reduce his risk of hospitalization but he could not tolerate the medication (was experiencing frequent painful bladder spasms and recurrent burning sensation on urination while on Jardiance) and this was eventually discontinued Cardiology has recommended that he undergo a treadmill stress test to assess for chronotropic competence and if he fails his stress test, they will then try to pursue dual-chamber pacemaker insertion He has also been referred to [facility] for EPS evaluation - he was seen for this in May 2024 and he decided to hold off on pacemaker placement at this time His stress test done in March 2024 came out normal, with patient achieving 79% of Mendez protocol and without EKG changes meeting criteria for ischemia Follow up with cardiology as scheduled (3) Ascending aorta dilatation: Code(s): I77.810 - Thoracic aortic ectasia Category: Medical Plan: Echocardiogram done back in April 2020 showed (+) mild dilatation of the ascending aorta measuring 4.10 cm His most recent echocardiogram done in May 2024 revealed (+) mild dilatation of the ascending aorta measuring 4.30 cm Follow up with cardiology as scheduled for continuing surveillance (4) Essential hypertension: Code(s): I10 - Essential (primary) hypertension Category: Medical Plan: Reinforced low sodium diet - goal is systolic BP of at least 140 to 150 mm or less Continue Amlodipine 10 mg QD Patient is reminded to continue monitoring his blood pressure regularly and to call if his systolic BP stays elevated at more than 150 mm consistently (5) Pure hypercholesterolemia: Code(s): E78.00 - Pure hypercholesterolemia, unspecified Category: Medical Plan: Results of his labs done a few weeks ago reviewed and discussed with patient Reinforced low cholesterol diet - have advised patient that his cholesterol levels are at goal on his recent labs Continue Atorvastatin 20 mg QD Will recheck his labs and fasting lipids in 6 months for follow-up (6) Acquired hypothyroidism: Code(s): E03.9 - Hypothyroidism, unspecified Category: Medical Plan: 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 Bernal in July 2018 - still has chronic active gastritis but H pylori was reportedly negative Repeat EGD in March 2022 revealed (+) Castillo's esophagitis Code(s): K29.50 - Unspecified chronic gastritis without bleeding Category: Medical Qualifiers: Gastritis type: unspecified gastritis Qualified Code(s): K29.50 - Unspecified chronic gastritis without bleeding Plan: Most recent EGD in March 2022 revealed (+) Castillo's esophagitis Dietary restrictions reinforced Continue Omeprazole 20 mg QD Follow up with GI as scheduled for continuing surveillance - he is due for repeat EGD but anesthesia is refusing to sedate him for the procedure due to his persistently low heart rate (9) Cervical disc disease: Code(s): M50.90 - Cervical disc disorder, unspecified, unspecified cervical region Category: Medical Plan: Cervical spine x-rays done back in 08/2021 revealed (+) moderate hypertrophic arthropathy right C3-C4, C4-C5, C5-C6 and C6-C7 facet joints (10) Lumbar degenerative disc disease: Code(s): M51.369 - Other intervertebral disc degeneration, lumbar region without mention of lumbar back pain or lower extremity pain Category: Medical Qualifiers: Disc-related pain type: discogenic back pain only Qualified Code(s): M51.360 - Other intervertebral disc degeneration, lumbar region with discogenic back pain only Plan: Reinforced activity and weight-lifting restrictions to avoid aggravating her low back pain Lumbar spine x-rays done back in 2013 revealed (+) severe multilevel degenerative disc disease and facet arthritis Patient states that he has been trying to manage his chronic neck pain and low back pain over the years but states that his neck has been bothering him a lot more than before lately (11) Primary osteoarthritis of both hips: Code(s): M16.0 - Bilateral primary osteoarthritis of hip Category: Medical Plan: Hip x-rays done back in 09/2020 revealed (+) OA changes in both hips Can consider referring him to orthopedics if his hip symptoms get worse and starts to impact his daily activities (12) Vitamin B12 deficiency: Code(s): E53.8 - Deficiency of other specified B group vitamins Category: Medical Plan: Corrected - his Vitamin B12 level was normal when checked earlier this year (13) Vitamin D deficiency: Code(s): E55.9 - Vitamin D deficiency, unspecified Category: Medical Plan: Continue Vitamin D3 2000 units QD (14) BPH w urinary obs/LUTS: Code(s): N40.1 - Benign prostatic hyperplasia with lower urinary tract symptoms; N13.8 - Other obstructive and reflux uropathy Category: Medical Plan: Continue Tamsulosin 0.4 mg Q HS and Finasteride 5 mg QD Follow up with urology as scheduled (15) Overweight (BMI 25.0-29.9): Code(s): E66.3 - Overweight Category: Medical Plan: Reinforced diet/exercise as tolerated/lose weight Plan Follow up in 6 months Orders: Orders Comprehensive [place]. Panel Fast 6 Months E78.00 - Pure hypercholesterolemia, unspecified Lipid Panel 6 Months E78.00 - Pure hypercholesterolemia, unspecified Thyroid Stimulating Hormone 6 Months E03.9 - Hypothyroidism, unspecified UA CC w/rflx Micro + Cult 6 Months R30.0 - Dysuria NT Pro B Type Natriuretic Pept 6 Months R06.09 - Other forms of dyspnea Complete Blood Count Auto Diff 6 Months D64.9 - Anemia, unspecified Free T4 (Free Thyroxine) 6 Months E03.9 - Hypothyroidism, unspecified Vitamin B12 and Folate 6 Months E53.8 - Deficiency of other specified B group vitamins Vitamin D 25-OH Total 6 Months E55.9 - Vitamin D deficiency, unspecified XR chest 2V 6 Months R06.00 - Dyspnea, unspecified, Z79.899 - Other ore dryer (current) drug therapy
[2025-02-18 09:34] VITALS: BP 112/72; PULSE 46; O2SAT 97; BMI 27.0
--- OUTSIDE RECORDS SUMMARY | 2025-02-18 10:10 | XMS_ITS | Patient Health Record ---
Author Organization [facility] Address [address] [place] [address] Care Team Providers Care Blanket Inspector Name Role Phone Peter GLASGOW [place] Primary Care Provider Unava Franck Cornejo Jr Unavailable [phone] ANA, CEMIL Unavailable Unavailable Allergies Allergen (clinical [...] Problem Status W/U Status Risk Notes Problem 626347182 Colon cancer screening (Z12.11) Active confirmed Problem 55542785 Epigastric pain (R10.13) Active confirmed Problem 448368730 detention (current) use of anticoagulants (Z79.01) Active confirmed Problem 498050907 Personal history of colonic polyps (Z86.010) Active confirmed Problem 624118452 Diverticulitis (K57.92) Active confirmed Problem 553326637 Gastroesophageal reflux disease with esophagitis (K21.0) Active confirmed Problem 34697891 Colon polyps (K63.5) Active confirmed Problem Gastroesophageal reflux disease (641756563) GERD (gastroesophageal reflux disease) (K21.9) Active confirmed Problem 217813644 Gastroesophageal reflux disease, unspecified whether esophagitis present [...] Provider Name:Franck campa , 03/16/2025 10:00:00 AM, [address] [place] [address], [place] [address], [place], [address], Insurance Providers Payer Name Payer Address Payer Phone Subscriber Number Group Number Insured Name Patient Relationship to Insured Coverage Start Date Coverage End Date MEDICARE OF [place] [address] [place] [address] [id number] BRY FLANNERY Self - patient is the insured [facility] SUPPLEMENTAL PLAN [address] [place] [address] [id number] BRY FLANNERY Self - patient is the [...]
--- OUTSIDE RECORDS SUMMARY | 2025-02-18 10:10 | XMS_ITS | Clinical Summary ---
Author Organization [facility] Address [address] [facility] [address] [place] [address] Phone Care Team Providers Care Wall Man Name Role Phone Brandin Frausto MD Primary [...] 06/29/2012 DEPRESSION SCREENING 12/13/2015 12/12/2014, 12/13/19 15 INFLUENZA VACCINE (#1) 2024 , 03/10/2019, 02/13/2018, Additional history exists COVID-19 VACCINE ( season) 2025 02/20/2021, 06/22/2020, 06/01/2020 Adult Td,Tdap Booster 11/13/2026 11/13/2016 PNEUMOCOCCAL VACCINES [...] EST) GLUCOSE 82 70 - 100 mg/dL [facility] UREA N 23 6 - 23 mg/dL [facility] CREATININE 1.33(A) 0.50 - 1.20 mg/dL [facility] eGFR 52(A) 60 - 150 mL/min/1.7 3m2 [facility] Comment:If patient is black, multiply result by 1.21 SODIUM 144 136 - 145 mmol/L [facility] POTASSIUM 5.0 3.4 - 5.0 mmol/L [facility] CHLORIDE 107 98 - 107 mmol/L [facility] TOTAL CO2 26 22 - 31 mmol/L [facility] CALCIUM 8.8 8.8 - 10.7 mg/dL [facility] MAGNESIUM 2.2 1.7 - 2.6 mg/dL [facility] ANION GAP 11 5 - 17 mmol/L [facility] 06/29/2014 7:31 AM EST Comment:BLOOD Narrative [facility] - 06/29/2014 7:31 AM EST [id number] us Polo Gil MD LAB BLOOD ORDERABLE S Final Result [address] [address] from Last 3 Months or Most Recently Relevant to Health Maintenance Insurance MEDICARE PART A & B MEDICARE PART A & B MEDICARE PART A & B MEDICARE PART A & B MEDICARE PART A & B MEDICARE PART A & B MEDICARE PART A & B MEDICARE PART A & B MEDICARE PART A & B Care Teams Wall Man Relationship Specialty Start Date End Date Brandin Frausto MD PCP - General 09/29/14 Additional Source Comments The information contained in this document represents components of the legal health record. It is not the complete legal health record.[facility]
== END 2025-02-18 10:23 | disposition home or self-care (01) ==
LOC: HO.HMCH 09:22
PROVIDERS: PCP Internal Medicine; Visit Provider Internal Medicine
DX: I48.0 Paroxysmal atrial fibrillation (principal); I50.32 Chronic diastolic (congestive) heart failure; I77.810 Thoracic aortic ectasia; I12.9 Hypertensive chronic kidney disease with stage 1 through stage 4 chronic kidney disease, or unspecified chronic kidney disease; E78.00 Pure hypercholesterolemia, unspecified; E03.9 Hypothyroidism, unspecified; N18.2 Chronic kidney disease, stage 2 (mild); K29.50 Unspecified chronic gastritis without bleeding; M50.90 Cervical disc disorder, unspecified, unspecified cervical region; M51.360 Other intervertebral disc degeneration, lumbar region with discogenic back pain only; M16.0 Bilateral primary osteoarthritis of hip; E53.8 Deficiency of other specified B group vitamins; E55.9 Vitamin D deficiency, unspecified; N40.1 Benign prostatic hyperplasia with lower urinary tract symptoms; N13.8 Other obstructive and reflux uropathy; E66.3 Overweight

== ENCOUNTER → 2025-02-18 09:21 | Outpatient (BNVA) | payer MEDICARE, SELFPAY | PROVIDERS: PCP Internal Medicine; Visit Provider Internal Medicine | DX: I48.0 Paroxysmal atrial fibrillation (principal); I13.0 Hypertensive heart and chronic kidney disease with heart failure and stage 1 through stage 4 chronic kidney disease, or unspecified chronic kidney disease; N18.2 Chronic kidney disease, stage 2 (mild); I50.32 Chronic diastolic (congestive) heart failure; I77.810 Thoracic aortic ectasia; E78.00 Pure hypercholesterolemia, unspecified; E03.9 Hypothyroidism, unspecified; K29.50 Unspecified chronic gastritis without bleeding; M50.90 Cervical disc disorder, unspecified, unspecified cervical region; M51.360 Other intervertebral disc degeneration, lumbar region with discogenic back pain only; M16.0 Bilateral primary osteoarthritis of hip; E53.8 Deficiency of other specified B group vitamins; E55.9 Vitamin D deficiency, unspecified; E66.3 Overweight; Z68.27 Body mass index [BMI] 27.0-27.9, adult; N40.1 Benign prostatic hyperplasia with lower urinary tract symptoms; N13.8 Other obstructive and reflux uropathy; Z71.3 Dietary counseling and surveillance | CPT/HCPCS: 96127; 99212 ==

== ENCOUNTER 2025-02-23 10:34 | Outpatient (AMB) | payer MEDICARE, SELFPAY ==
--- NOTE | 2025-02-23 10:35 | A.OFFVIS_ITS ---
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 Lumbar degenerative disc disease Pure hypercholesterolemia Cervical disc disease Essential hypertension (HFpEF) heart failure with preserved ejection fraction Sick sinus syndrome Acquired hypothyroidism Diastolic dysfunction Retention of urine Angioedema Acute bacterial prostatitis Prostatitis Hearing aid worn Atrial fibrillation Pulmonary nodules Hyperkalemia Overweight (BMI 25.0-29.9) Vitamin D deficiency Vitamin B12 deficiency Chronic kidney disease, stage II (mild) Chronic gastritis without bleeding Sinus bradycardia Right bundle branch block (RBBB) determined by electrocardiography Hyperlipidemia HTN (hypertension) History of cardiomyopathy History of congestive heart failure Paroxysmal atrial fibrillation CAD (coronary artery disease) On amiodarone therapy Surgical History Hx of ventral hernia repair Hx of hand surgery History of prostate surgery Hx of colostomy History of colon resection Hx of knee surgery Hx of colonoscopy Hx of endoscopy History of radiofrequency ablation procedure for cardiac arrhythmia History of cardioversion Family History Father No problems noted. Mother CVD (cardiovascular disease) CHF (congestive heart failure) Social History Household Members: Spouse Housing: House Do you presently have visiting nurse or other home services: Yes Alcohol intake: current Alcohol intake frequency: holidays/special occasions only Alcohol type: wine Comment: pt refuses bed alarm Patient Tobacco Use Status: Never used Tobacco e-Cigarette/Vaping Use: Never Used Second Hand Smoke Exposure: No Advance Directives Date on File: 04/27/08 service: Yes Current occupational status: retired Cognitive needs: No Hearing needs: Yes Vision needs: Yes Review of Systems Const Denies chills and Denies fever(s) Card Reports no additional complaints and Denies syncope Resp Denies cough GI Denies abdominal pain and Denies heartburn Reports as per HPI and Denies change in libido Neuro Denies syncope Psych Denies change in libido Endo Denies change in libido Physical Exam Const General: cooperative, healthy appearing, comfortable and no acute distress Orientation/consciousness: patient oriented x3 HEENT Face and sinus: Yes normal facial exam Mouth: moist mucous membranes Neck Neck: Yes normal visual inspection, Yes full ROM and Yes trachea midline Chest Chest palpation & inspection: normal inspection of the chest Resp Effort & Inspection: normal respiratory effort, able to speak in complete sentences and no respiratory distress GI Inspection: Yes normal to inspection Rectal Exam - Male: Yes normal sphincter tone and Yes prostate normal Male General Exam: Yes normal external exam Penis: normal penis and circumcised Meatus: meatus normal Scrotum: scrotum normal Testes: Testes normal Back/Spine/Pelvis Cervical Spine: normal cervical lordosis Thoracic/Lumbar Spine: thoracic and lumbar spine normal to inspection Skin General skin exam: no rashes or lesions noted Neuro General: patient oriented x3, gait normal, tone normal and moves all extremities Extrem General: Yes normal to inspection and Yes capillary refill normal Office Procedures Post Void Residual Post Residual Void Post Void Residual (PVR): 54 28319-Nhec Void Residual by ultrasound Results AMB Urinalysis, Automated UA Leukoctes 0 Tsering/uL Last Edit by Josefa Baltazar, [place] on 02/23/25 12:48 UA Nitrite Negative Last Edit by Josefa [place], [place] on 02/23/25 12:48 UA Urobilinogen 0.2 mg/dL Last Edit by Josefa [place], [place] on 02/23/25 12:48 UA Protein 0 mg/dL [facility] [place] on 02/23/25 12:48 UA pH 6.0 [facility] [place] on 02/23/25 12:48 UA Blood 0 Nixon/uL Last Edit by Josefa [place], [place] on 02/23/25 12:48 UA Specific [place] 1.015 Last Edit by Josefa [place], [place] on 02/23/25 12:48 UA Ketone Negative Last Edit by Josefa [place], [place] on 02/23/25 12:48 UA Bilirubin 0 mg/dL [facility] [place] on 02/23/25 12:48 UA Glucose 0 mg/dL Last Edit by Josefa [place], [place] on 02/23/25 12:48 Results Reviewed Results Reviewed: Laboratory Last Values Urine pH (Auto) 6.0 02/23/25 12:04 Specific [place] (Auto) 1.015 02/23/25 12:04 Urine Protein (Auto) 0 mg/dL 02/23/25 12:04 Glucose (UA)(Auto) 0 mg/dL 02/23/25 12:04 Urine Ketones (Auto) Negative 02/23/25 12:04 Urine Blood (Auto) 0 Nixon/uL 02/23/25 12:04 Urine Nitrite (Auto) Negative 02/23/25 12:04 Urine Bilirubin (Auto) 0 mg/dL 02/23/25 12:04 Urine Urobilinogen (Auto) 0.2 mg/dL 02/23/25 12:04 Leukocyte Esterase (Auto) 0 Tsering/uL 02/23/25 12:04 Assessment & Plan Assessment & Plan (1) Hypospadias: Code(s): Q54.9 - Hypospadias, unspecified Category: Medical (2) BPH w urinary obs/LUTS: Code(s): N40.1 - Benign prostatic hyperplasia with lower urinary tract symptoms; N13.8 - Other obstructive and reflux uropathy Category: Medical (3) Prostatitis: Code(s): N41.9 - Inflammatory disease of prostate, unspecified Category: Medical Qualifiers: Prostatitis type: unspecified Qualified Code(s): N41.9 - Inflammatory disease of prostate, unspecified (4) Erectile dysfunction: Code(s): N52.9 - Male erectile dysfunction, unspecified Category: Medical Qualifiers: Erectile dysfunction type: vasculogenic Vasculogenic erectile dysfunction type: due to arterial insufficiency Qualified Code(s): N52.01 - Erectile dysfunction due to arterial insufficiency Plan Six-month follow-up Orders: Orders AMB Urinalysis Automated Today Z13.9 - Encounter for screening, unspecified AMB Post Void Residual by ultrasound Today N13.8 - Other obstructive and reflux uropathy, N40.1 - Benign prostatic hyperplasia with lower urinary tract symptoms Patient Instructions: This note is constructed using voice recognition software. While every effort has been made to ensure accuracy sports manager errors may have been included. Imaging studies, laboratory and physical exam results were discussed and reviewed in detail. No major barriers to patient understanding were identified. An opportunity to ask questions regarding the treatment plan was provided. All questions were answered. The patient expressed understanding and agreement with the above treatment plan. The patient is aware they should contact our office by phone for worsening of their current condition or the appearance of new urologic symptoms. Compliance is encouraged with any medications and followup testing that is ordered. It is a privilege to participate in the urologic care of your patient. If you have any questions or concerns regarding treatment for the above conditions, or other urologic issues, please do not hesitate to contact me. The office telephone contact is [phone]. Sincerely, Dr Jeff Hdz MD, 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
--- OUTSIDE RECORDS SUMMARY | 2025-02-23 12:12 | XMS_ITS | Patient Health Record ---
Author Organization [facility] Address [address] [place] [address] Care Team Providers Care Passenger Car Inspector Name Role Phone Peter GLASGOW [facility] Primary Care Provider Unava Franck Cornejo Jr Unavailable ANA, CEMIL Unavailable Unavailable Allergies Allergen (clinical [...] Problem Status W/U Status Risk Notes Problem 990191097 Colon cancer screening (Z12.11) Active confirmed Problem 54262756 Epigastric pain (R10.13) Active confirmed Problem 853820141 terminal gauger (current) use of anticoagulants (Z79.01) Active confirmed Problem 164483261 Personal history of colonic polyps (Z86.010) Active confirmed Problem 800950117 Diverticulitis (K57.92) Active confirmed Problem 776546724 Gastroesophageal reflux disease with esophagitis (K21.0) Active confirmed Problem 36699183 Colon polyps (K63.5) Active confirmed Problem Gastroesophageal reflux disease (637753366) GERD (gastroesophageal reflux disease) (K21.9) Active confirmed Problem 961258210 Gastroesophageal reflux disease, unspecified whether esophagitis present [...] Provider Name:Franck campa , 03/16/2025 10:00:00 AM, [address] [place] [address], [place] [address], [place], [address], Insurance Providers Payer Name Payer Address Payer Phone Subscriber Number Group Number Insured Name Patient Relationship to Insured Coverage Start Date Coverage End Date MEDICARE OF [place] [address] [place] [address] [phone] [id number] BRY FLANNERY Self - patient is the insured [facility] SUPPLEMENTAL PLAN [address] [place] [address] [id number] BRY FLANNERY Self - patient is the [...]
--- OUTSIDE RECORDS SUMMARY | 2025-02-23 12:12 | XMS_ITS | Clinical Summary ---
Author Organization [facility] Address [address] [facility] [address] [place] [address] Phone Care Team Providers Care Asic Design Engineer Name Role Phone Brandin Frausto MD Primary [...] EST) GLUCOSE 82 70 - 100 mg/dL [facility] UREA N 23 6 - 23 mg/dL [facility] CREATININE 1.33(A) 0.50 - 1.20 mg/dL [facility] eGFR 52(A) 60 - 150 mL/min/1.7 3m2 [facility] Comment:If patient is black, multiply result by 1.21 SODIUM 144 136 - 145 mmol/L [facility] POTASSIUM 5.0 3.4 - 5.0 mmol/L [facility] CHLORIDE 107 98 - 107 mmol/L [facility] TOTAL CO2 26 22 - 31 mmol/L [facility] CALCIUM 8.8 8.8 - 10.7 mg/dL [facility] MAGNESIUM 2.2 1.7 - 2.6 mg/dL [facility] ANION GAP 11 5 - 17 mmol/L [facility] 06/29/2014 7:31 AM EST Comment:BLOOD Narrative [facility] - 06/29/2014 7:31 AM EST [id number] us Polo Gil MD LAB BLOOD ORDERABLE S Final Result [address] [id number] from Last 3 Months or Most Recently Relevant to Health Maintenance Insurance MEDICARE PART A & B MEDICARE PART A & B MEDICARE PART A & B MEDICARE PART A & B MEDICARE PART A & B MEDICARE PART A & B MEDICARE PART A & B MEDICARE PART A & B MEDICARE PART A & B Care Teams Asic Design Engineer Relationship Specialty Start Date End Date Brandin Frausto MD PCP - General 09/29/14 Additional Source Comments The information contained in this document represents components of the legal health record. It is not the complete legal health record.[facility]
== END 2025-02-23 11:35 | disposition home or self-care (01) ==
LOC: HO.HUSH 10:35
PROVIDERS: PCP Internal Medicine; Visit Provider Urology
DX: Q54.9 Hypospadias, unspecified (principal); N40.1 Benign prostatic hyperplasia with lower urinary tract symptoms; N13.8 Other obstructive and reflux uropathy; N41.9 Inflammatory disease of prostate, unspecified; N52.01 Erectile dysfunction due to arterial insufficiency
CPT/HCPCS: 99213

== ENCOUNTER → 2025-02-23 10:34 | Outpatient (BNVA) | payer MEDICARE, SELFPAY | PROVIDERS: PCP Internal Medicine; Visit Provider Urology | DX: N40.1 Benign prostatic hyperplasia with lower urinary tract symptoms (principal); N13.8 Other obstructive and reflux uropathy; Q54.9 Hypospadias, unspecified; N41.9 Inflammatory disease of prostate, unspecified; N52.01 Erectile dysfunction due to arterial insufficiency | CPT/HCPCS: 51798; 81003; 99212 ==

== ENCOUNTER 2025-04-29 07:24 | Day surgery (SDC) | payer MEDICARE, SELFPAY ==
--- OUTSIDE RECORDS SUMMARY | 2025-03-23 15:35 | XMS_ITS | Clinical Summary ---
Author Organization [facility] Address [address] [facility] [address] [place] [address] Phone Care Team Providers Care Stone Splitter Name Role Phone Brandin Frausto MD Primary [...] EST) GLUCOSE 82 70 - 100 mg/dL [facility] UREA N 23 6 - 23 mg/dL [facility] CREATININE 1.33(A) 0.50 - 1.20 mg/dL [facility] eGFR 52(A) 60 - 150 mL/min/1.7 3m2 [facility] Comment:If patient is black, multiply result by 1.21 SODIUM 144 136 - 145 mmol/L [facility] POTASSIUM 5.0 3.4 - 5.0 mmol/L [facility] CHLORIDE 107 98 - 107 mmol/L [facility] TOTAL CO2 26 22 - 31 mmol/L [facility] CALCIUM 8.8 8.8 - 10.7 mg/dL [facility] MAGNESIUM 2.2 1.7 - 2.6 mg/dL [facility] ANION GAP 11 5 - 17 mmol/L [facility] 06/29/2014 7:31 AM EST Comment:BLOOD Narrative [facility] - 06/29/2014 7:31 AM EST [id number] us Polo Gil MD LAB BLOOD ORDERABLE S Final Result [address] [address] from Last 3 Months or Most Recently Relevant to Health Maintenance Insurance MEDICARE PART A & B MEDICARE PART A & B MEDICARE PART A & B MEDICARE PART A & B MEDICARE PART A & B MEDICARE PART A & B MEDICARE PART A & B MEDICARE PART A & B MEDICARE PART A & B Care Teams Stone Splitter Relationship Specialty Start Date End Date Brandin Frausto MD PCP - General 09/29/14 Additional Source Comments The information contained in this document represents components of the legal health record. It is not the complete legal health record.[facility]
--- OUTSIDE RECORDS SUMMARY | 2025-03-23 15:35 | XMS_ITS | Patient Health Record ---
Author Organization [facility] Address [address] [place] [address] Care Team Providers Care Blender/Braze Applicator Name Role Phone Peter GLASGOW [place] Primary Care Provider Unava Franck Cornejo Jr Unavailable ANA, CEMIL Unavailable Unavailable Allergies Allergen (clinical drug ingredient) Drug/Non Drug Allergy documented on EMR Reaction Allergy Type Onset Date Status Levaquin Unknown Drug Allergy Active Romo Unknown Drug Allergy Active Reason For Referral No Information Medications Medication SIG (Take, Route, Frequency, Duration) Notes Start Date End Date Status Apixaban 5 MG 1 tablet Orally Twic e a day; Duration: 30 day(s) Active Omeprazole 20 MG 1 capsule Orally Onc e a day 03/27/2011 Active amLODIPine Besy-Benazepril HCl 2.5-10 MG as directed Orally Active Atorvastatin Calcium 20 MG 1 tablet Oral ly Once a day Active Furosemide 20 MG 1 tablet Orally Once a day Active Amiodarone HCl 200 MG 1 tablet Orally On ce a day Active Tamsulosin HCl 0.4 MG 1 capsule Orally O nce a day; Duration: 30 day(s) Active Levothyroxine Sodium 75 MCG 1 tablet in the morning on an empty stomach Orally Once a day Active EPINEPHrine 0.3 MG/0.3ML as directed Injection Active Immunizations Vaccine Route Administration Date Status Comme nts Flu vaccine no Preserv 3 and > Unknown 02/08/2015 Admin istered Influenza Unknown 03/01/2022 Administered Influenza Unknown 03/16/2025 Administered Problems Problem Type SNOMED Code ICD Code Onset Dates Problem Status W/U Status Risk Notes Problem Colon cancer screening (813826704) Colon cancer screening (Z12.11) Active confirmed Problem Epigastric pain (23159753) Epigastric pain (R10.13) Active confirmed Problem Long-term current use of anticoagulant (361396396) residential (current) use of anticoagulants (Z79.01) Active confirmed Problem History of polyp of colon (situation) (321027666) Personal history of colonic polyps (Z86.010) Active confirmed Problem Diverticulitis (56621910) Diverticulitis (K57.92) Active confirmed Problem Gastroesophageal reflux disease with esophagitis (953930379) Gastroesophageal reflux disease with esophagitis (K21.0) Active confirmed Problem Polyp of colon (disorder) (62435401) Colon polyps (K63.5) Active confirmed Problem Gastroesophageal reflux disease (568528084) GERD (gastroesophageal reflux disease) (K21.9) Active confirmed Problem 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 Problem Gastroesophageal reflux disease (909391464) Gastroesophageal reflux disease, unspecified whether esophagitis present (K21.9) Active confirmed Vital Signs Temperature 98.2 degrees Fahrenheit 03/16/2025 Blood pressure diastolic 01 mm Hg 03/16/2025 Height 64 in 03/16/2025 Blood pressure systolic 001 mm Hg 03/16/2025 Weight 159.6 lbs 03/16/2025 BMI 27.39 kg/m2 03/16/2025 Encounters Encounter Location Date Provider Diagnosis [facility] [address] [place] [phone] 03/16/2025 Franck Bernal Jr Castillo esophagus K22.70 ; Gastroesophageal reflux disease with esophagitis K21.0 and Colon cancer screening Z12.11 [facility] [address] [place] [address] 03/16/2025 Franck Bernal Jr Assessments Encounter Date Diagnosis (ICD Code) Assessment Notes Treatment Notes Treatment Clinical Notes Section Notes 03/16/2025 Gastroesophageal reflux disease with esophagitis (ICD-10 - K21.0) We discussed gastroesophageal reflux disease today. 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 He is due for follow-up endoscopy. We discussed that this is optional as his age is greater than 75. We discussed risks and benefits of the procedure today. He understands these and agrees to proceed. This will be scheduled at his convenience. He is advised to stop Eliquis 3 days before the procedure. 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 He is due for follow-up endoscopy. We discussed that this is optional as his age is greater than 75. We discussed risks and benefits of the procedure today. He understands these and agrees to proceed. This will be scheduled at his convenience. He is advised to stop Eliquis 3 days before the procedure. 03/16/2025 Colon cancer screening (ICD-10 - Z12.11) We discussed gastroesophageal reflux disease today. 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 He is due for follow-up endoscopy. We discussed that this is optional as his age is greater than 75. We discussed risks and benefits of the procedure today. He understands these and agrees to proceed. This will be scheduled at his convenience. He is advised to stop Eliquis 3 days before the procedure. Plan Of Treatment Pending Test Test Name Order Date UPPER GI ENDOSCOPY, BIOPSY 03/27/2011 COLONOSCOPY WITH BIOPSY 03/27/2011 COLONOSCOPY REMOVAL OF LESION SNARE TECH NIQUE 03/27/2011 US ABD 03/15/2022 Future Test Test Name Order Date UPPER GI ENDOSCOPY 04/05/2015 COLONOSCOPY 04/05/2015 UPPER GI ENDOSCOPY 02/18/2018 COLONOSCOPY 02/18/2018 UPPER GI ENDOSCOPY 03/15/2022 UPPER GI ENDOSCOPY 03/16/2025 Next Appt Details Provider Name:Franck campa Jr, 04/29/2025 09:10:00 AM, [address] [place] [address] , [place], [place], [phone], Insurance Providers Payer Name Payer Address Payer Phone Subscriber Number Group Number Insured Name Patient Relationship to Insured Coverage Start Date Coverage End Date MEDICARE OF [place] [address] [place] [address] [phone] [id number] BRY FLANNERY Self - patient is the insured [facility] SUPPLEMENTAL PLAN [address] [place] [address] [phone] [id number] BRY FLANNERY Self - patient is the insured Medical (General) History Medical History History ICD Code hypertension elevated Cholesterol Atrial fibrillation BPH Dupuytren's contracture Vitamin D deficiency Chronic kidney disease stage II 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
[2025-04-19 16:51] VITALS: BMI 37.4
--- NOTE | 2025-04-20 09:34 | HO.ANESPROP2 ---
Documented by User: Nimco Covarrubias NP 04/20/25 12:06 HPI - Anesthesia Eval Consult details Narrative: 89yo M for Upper Endoscopy, 04/29/25 Cardiac optimized. [place] [facility] [place] Cardiology for: PAF - on eliquis, ok'd to hold. Hx of ablation. On amioderone HFpEF - No s/s of HF at 11/2024 office visit. Appears euvolemic and denies symptoms at PAT. SSS - d/t medical therapy and aging. No s/s of chronotropic incompetence, no syncopal events. Defers EP consult, cardiology agrees Case reviewed with Dr Ly. MCKEON to proceed. [facility] Active Problems Active Problems: All Active Problems Cataracts, bilateral (Acute) Preoperative examination (Acute) Right foot pain (Acute) Thoracic aortic aneurysm (Acute) Erectile dysfunction (Acute) Skin lesion of back (Acute) Neck pain (Acute) Prostatitis (Acute) BPH w urinary obs/LUTS (Acute) Encounter for Medicare annual wellness exam (Acute) Hypospadias (Acute) Exertional chest pain (Acute) Ascending aorta dilatation (Acute) Primary osteoarthritis of both hips (Acute) Lumbar degenerative disc disease (Acute) Pure hypercholesterolemia (Acute) Cervical disc disease (Acute) Essential hypertension (Acute) (HFpEF) heart failure with preserved ejection fraction (Acute) Sick sinus syndrome (Acute) Acquired hypothyroidism (Acute) History of cardiomyopathy (Acute) Diastolic dysfunction (Acute) Retention of urine (Acute) Angioedema (Acute) Pulmonary nodules (Acute) Hyperkalemia (Acute) Overweight (BMI 25.0-29.9) (Acute) Vitamin D deficiency (Acute) Vitamin B12 deficiency (Acute) Chronic kidney disease, stage II (mild) (Acute) Chronic gastritis without bleeding (Acute) Sinus bradycardia (Acute) Right bundle branch block (RBBB) determined by electrocardiography (Acute) Hyperlipidemia (Acute) HTN (hypertension) (Acute) Paroxysmal atrial fibrillation (Acute) CAD (coronary artery disease) (Acute) Past Medical History Medical History Wears hearing aid in both ears 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 Lumbar degenerative disc disease Pure hypercholesterolemia Cervical disc disease Essential hypertension (HFpEF) heart failure with preserved ejection fraction Sick sinus syndrome Acquired hypothyroidism Diastolic dysfunction Retention of urine Angioedema Acute bacterial prostatitis Prostatitis Hearing aid worn Atrial fibrillation Pulmonary nodules Hyperkalemia Overweight (BMI 25.0-29.9) Vitamin D deficiency Vitamin B12 deficiency Chronic kidney disease, stage II (mild) Chronic gastritis without bleeding Sinus bradycardia Right bundle branch block (RBBB) determined by electrocardiography Hyperlipidemia HTN (hypertension) History of cardiomyopathy History of congestive heart failure Paroxysmal atrial fibrillation CAD (coronary artery disease) On amiodarone therapy Family History Family History Father No problems noted. Mother CVD (cardiovascular disease) CHF (congestive heart failure) Family history of problems with anesthesia: No Surgical History Surgical History Hx of bilateral cataract extraction (02/2024) History of esophagogastroduodenoscopy (EGD) (03/2022) Hx of ventral hernia repair Hx of hand surgery History of prostate surgery Hx of colostomy History of colon resection Hx of knee surgery Hx of colonoscopy (2018) Hx of endoscopy History of radiofrequency ablation procedure for cardiac arrhythmia History of cardioversion History of Problems with Anesthesia: No Social History Social History Household Members: Spouse Housing: House Are you a primary auto care center manager to a significant other at home: No Do you presently have visiting nurse or other home services: No Alcohol intake: current Alcohol intake frequency: holidays/special occasions only Alcohol type: wine Comment: pt refuses bed alarm Patient Tobacco Use Status: Never used Tobacco e-Cigarette/Vaping Use: Never Used Second Hand Smoke Exposure: No Use of substances other than those prescribed or required for medical reasons: No Have you been hit, kicked, punched, or otherwise hurt by someone within the past year? If so, by whom?: No Are you DNR?: No Advance Directives: No Advance Directives Information Provided: Yes Advance Directives on File: No Advance Directives Date on File: 04/18/16 service: Yes Current occupational status: retired Cognitive needs: No Hearing needs: Yes Vision needs: Yes Meds Allergies Allergy/AdvReac Type Severity Reaction Status Date / Time flores (cherries) Allergy Severe Anaphylaxis, Verified 04/29/25 07:57 flores pit allergy amoxicillin (Augmentin) Allergy Unknown Unknown Verified 04/29/25 07:57 clavulanic acid (Augmentin) Allergy Unknown unknown Verified 04/29/25 07:57 empagliflozin (From AdvReac Intermediate recurrent Verified 04/29/25 07:57 Jardiance) bladder spasms and dysuria Home Medications ?Medication ?Instructions ?Recorded ?Confirmed ?Last Taken ?Type apixaban 5 mg tablet (Eliquis) 5 mg PO BID 06/12/20 04/19/25 04/25/25 History atorvastatin 20 mg tablet 20 mg PO BEDTIME 06/12/20 04/19/25 11/26/20 History omeprazole 20 mg capsule,delayed 20 mg PO .DAILY@0906/12/20 04/19/25 11/26/20 History release amiodarone 200 mg tablet 200 mg PO .DAILY@1200 04/19/25 04/19/25 Unknown History amlodipine 10 mg tablet 10 mg PO .DAILY@1300 04/19/25 04/20/25 Unknown History furosemide 20 mg tablet 20 mg PO .DAILY@0904/19/25 04/19/25 Unknown History levothyroxine 75 mcg tablet 75 mcg PO .DAILY@2300 04/19/25 04/20/25 Unknown History Exam Height,Weight and Vital Signs: Height 4 ft 6 in Weight 70.307 kg Vital Signs Pulse Rate 53 04/20/25 11:46 Respiratory Rate 16 04/20/25 11:46 Blood Pressure 165/70 H 04/20/25 11:46 Pulse Oximetry 96 04/20/25 11:46 Oxygen Delivery Method Room Air 04/20/25 11:46 Pertinent Lab Results Pertinent Lab Results: Laboratory Tests 01/26/25 08:10 WBC 6.6 Hgb 13.9 L Hct 41.6 L Plt Count 210 Sodium 139 Potassium 4.3 Chloride 106 Carbon Dioxide 26 BUN 26 H Creatinine 1.19 Narrative Narrative: EKG 11/2024 Details: EKG shows marked sinus bradycardia at 44 beats per minute with right bundle-branch block, unchanged from before ECHO 05/2024 Conclusions: - The left ventricular systolic function is normal. The calculated ejection fraction is 63% by biplane method. - Evidence suggests grade III (severe) diastolic dysfunction. - Moderate biatrial enlargement. - No obvious valvular pathology seen on this study. 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 Exercise Stress 2023 Protocol: WALTER Max HR: 118 BPM 88% of Pred: 134 BPM Max BP: 170/060 mmHG Max Work Load: 6.8 METS Exercise stress test with exercise 4 min 51 sec of Walter protocol, achieving 79% MPHR, with moderate shortness of breath, no chest discomfort, with isolated PVCs, with normotensive response to exercise, without EKG changes meeting criteria for ischemia.Test reviewed with Dr Macias Assessment and Plan Assessment Anesthesia Assessment: Anesthesia Plan Discussed and PAT Visit Final Anesthetic Review Family History of Problems with Anesthesia: No History of Problems with Anesthesia: No Documented by User: Natalee Briceno MD 04/29/25 09:39 [facility] Past Medical History Medical History Wears hearing aid in both ears 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 Lumbar degenerative disc disease Pure hypercholesterolemia Cervical disc disease Essential hypertension (HFpEF) heart failure with preserved ejection fraction Sick sinus syndrome Acquired hypothyroidism Diastolic dysfunction Retention of urine Angioedema Acute bacterial prostatitis Prostatitis Hearing aid worn Atrial fibrillation Pulmonary nodules Hyperkalemia Overweight (BMI 25.0-29.9) Vitamin D deficiency Vitamin B12 deficiency Chronic kidney disease, stage II (mild) Chronic gastritis without bleeding Sinus bradycardia Right bundle branch block (RBBB) determined by electrocardiography Hyperlipidemia HTN (hypertension) History of cardiomyopathy History of congestive heart failure Paroxysmal atrial fibrillation CAD (coronary artery disease) On amiodarone therapy Family History Family History Father No problems noted. Mother CVD (cardiovascular disease) CHF (congestive heart failure) Surgical History Surgical History Hx of bilateral cataract extraction (02/2024) History of esophagogastroduodenoscopy (EGD) (03/2022) Hx of ventral hernia repair Hx of hand surgery History of prostate surgery Hx of colostomy History of colon resection Hx of knee surgery Hx of colonoscopy (2018) Hx of endoscopy History of radiofrequency ablation procedure for cardiac arrhythmia History of cardioversion Social History Social History Household Members: Spouse Housing: House Are you a primary auto care center manager to a significant other at home: No Do you presently have visiting nurse or other home services: No Alcohol intake: current Alcohol intake frequency: holidays/special occasions only Alcohol type: wine Comment: pt refuses bed alarm Patient Tobacco Use Status: Never used Tobacco e-Cigarette/Vaping Use: Never Used Second Hand Smoke Exposure: No Use of substances other than those prescribed or required for medical reasons: No Have you been hit, kicked, punched, or otherwise hurt by someone within the past year? If so, by whom?: No Are you DNR?: No Advance Directives: No Advance Directives Information Provided: Yes Advance Directives on File: No Advance Directives Date on File: 04/18/16 service: Yes Current occupational status: retired Cognitive needs: No Hearing needs: Yes Vision needs: Yes Meds Allergies Allergy/AdvReac Type Severity Reaction Status Date / Time flores (cherries) Allergy Severe Anaphylaxis, Verified 04/29/25 07:57 flores pit allergy amoxicillin (Augmentin) Allergy Unknown Unknown Verified 04/29/25 07:57 clavulanic acid (Augmentin) Allergy Unknown unknown Verified 04/29/25 07:57 empagliflozin (From AdvReac Intermediate recurrent Verified 04/29/25 07:57 Jardiance) bladder spasms and dysuria Home Medications ?Medication ?Instructions ?Recorded ?Confirmed ?Last Taken ?Type apixaban 5 mg tablet (Eliquis) 5 mg PO BID 06/12/20 04/19/25 04/25/25 History atorvastatin 20 mg tablet 20 mg PO BEDTIME 06/12/20 04/19/25 11/26/20 History omeprazole 20 mg capsule,delayed 20 mg PO .DAILY@92906/12/20 04/19/25 11/26/20 History release amiodarone 200 mg tablet 200 mg PO .DAILY@119904/19/25 04/19/25 Unknown History amlodipine 10 mg tablet 10 mg PO .DAILY@1300 04/19/25 04/20/25 Unknown History furosemide 20 mg tablet 20 mg PO .DAILY@92904/19/25 04/19/25 Unknown History levothyroxine 75 mcg tablet 75 mcg PO .DAILY@2300 04/19/25 04/20/25 Unknown History Exam Airway Mallampati Class: III TM Dist: >3cm Neck ROM: Limited Loose/Missing/Broken Teeth: No Heart: RRR Lungs: CTA Assessment and Plan Final Anesthetic Review ASA Class: III Final Preanesthetic Review: Meds/Allgs Chart Reviewed, Consent Obtained/Reviewed and Anes Risks/Benef Reviewed Patient Risk: Intermediate Procedure Risk: Intermediate Anesthetic Plan Anesthetic Plan: MAC: Disposition: Standard PACU
[2025-04-20 11:46] VITALS: BP 165/70; PULSE 53; RESP 16; O2SAT 96
[2025-04-29] MEDS: Lactated Ringers 1,000 ML 50 ML IVCONT (08:08)
[2025-04-29 08:10] VITALS: BP 156/67; PULSE 52; RESP 18; TEMP 36.7; O2SAT 96; BMI 38.8
--- NOTE | 2025-04-29 09:44 | MHC.SHP ---
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 Details of Present Illness: see H&P no chnages Relevant Family History (Specify if Yes): No Relevant Social History: None Present Medications: see Short Stay Collaborative assessment Medical History: No relevant PMH History of Previous Operations: No relevant previous surgery Allergies: Allergies Allergy/AdvReac Type Severity Reaction Status Date / Time flores (cherries) Allergy Severe Anaphylaxis, Verified 04/29/25 07:57 flores pit allergy amoxicillin (Augmentin) Allergy Unknown Unknown Verified 04/29/25 07:57 clavulanic acid (Augmentin) Allergy Unknown unknown Verified 04/29/25 07:57 empagliflozin (From AdvReac Intermediate recurrent Verified 04/29/25 07:57 Jardiance) bladder spasms and dysuria Review of Systems Sugical H&P ROS: Negative: Constitution, Cardiovascular, Respiratory, Neurological, Psychiatric, Hem-Onc, Allergic/Immunologic, Gastrointestinal, Genitourinary, Musculoskeletal, Integumentary, Endocrine and Eyes/Ears/Nose/Throat Exam Surgical H&P Exam: Normal: HEENT, Normal: Heart, Normal: Lungs, Normal: Extremities, Normal: Abdomen, Normal: Skin and Normal: Neurological Plan Diagnosis/Plan: Unchanged I have reviewed the history and physical and performed a pertinent physical examination on my patient. No changes have occurred unless specified. Time Spent With Patient Time: Total time managing care of this patient today ____ minutes.
[2025-04-29 10:13] VITALS: BP 112/48; PULSE 43; RESP 18; TEMP 36.4; O2SAT 96
[2025-04-29 10:28] VITALS: BP 113/63; PULSE 40; RESP 18; TEMP 36.3; O2SAT 95
--- NOTE | 2025-04-29 10:38 | OP_ITS ---
DATE OF SERVICE: 04/29/2025 SURGEON: Franck Bernal MD INDICATIONS: Castillo esophagus. PREOPERATIVE DIAGNOSIS: POSTOPERATIVE DIAGNOSIS: PROCEDURE PERFORMED: Upper endoscopy with biopsy. ESTIMATED BLOOD LOSS: COMPLICATIONS: ANESTHESIA: Monitored anesthesia care. ASSISTANTS: SPECIMENS: DESCRIPTION OF PROCEDURE: A history and physical was performed. The risks and benefits of procedure were explained to the patient. Informed consent was obtained. The patient was placed in the left lateral decubitus position. The Olympus video gastroscope was introduced into the esophagus, stomach, and duodenum. Examination was performed. The scope was removed. He tolerated the procedure well and was returned to the recovery area in stable condition. 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 There was a sliding hiatal hernia. Biopsies were obtained from the distal esophagus and EG junction. Stomach: The stomach showed no evidence of masses or ulcers. Biopsies were obtained from the antrum. Duodenum: The bulb and 2nd portion were normal. IMPRESSION: Castillo esophagus. RECOMMENDATION: Follow up the biopsy results. MD MAURIZIO Jacobs/MODL / [id number]
== END 2025-04-29 11:14 | disposition home or self-care (01) ==
PROVIDERS: PCP Internal Medicine; Visit Provider Internal Medicine Gastroenterology
PROC: 0DJ08ZZ Inspection of Upper Intestinal Tract, Via Natural or Artificial Opening Endoscopic (ICD-10-PCS; CPT 43235; principal; 2025-04-29 09:10)
DX: K22.70 Barrett's esophagus without dysplasia (principal); K29.50 Unspecified chronic gastritis without bleeding; K21.9 Gastro-esophageal reflux disease without esophagitis; K44.9 Diaphragmatic hernia without obstruction or gangrene; K57.30 Diverticulosis of large intestine without perforation or abscess without bleeding; I48.91 Unspecified atrial fibrillation; I12.9 Hypertensive chronic kidney disease with stage 1 through stage 4 chronic kidney disease, or unspecified chronic kidney disease; N18.2 Chronic kidney disease, stage 2 (mild); E78.00 Pure hypercholesterolemia, unspecified; E55.9 Vitamin D deficiency, unspecified; Z90.49 Acquired absence of other specified parts of digestive tract; Z79.899 Other long term (current) drug therapy; Z88.1 Allergy status to other antibiotic agents; Z88.8 Allergy status to other drugs, medicaments and biological substances; Z96.653 Presence of artificial knee joint, bilateral; Z98.890 Other specified postprocedural states
CPT/HCPCS: 43239; 88305; 88313; 88342; J2003; J2704